=== PATIENT | female | born 1935 | race Caucasian/White ===

== ENCOUNTER 2017-07-10 19:00 | Emergency (ER) | payer MEDICARE, SELFPAY ==
[2017-07-10 19:02] VITALS: BP 170/120; PULSE 89; RESP 18; TEMP 36.7; O2SAT 96; BMI 22.2
--- NOTE | 2017-07-10 20:45 | CT_ITS ---
STUDY: CT FACIAL BONES WITHOUT CONTRAST REASON FOR EXAM: Female, 81 years old. Trauma RADIATION DOSAGE (If Supplied By Facility): CTDIvol = ( 29.38 ) mGy, DLP = ( 510.73 ) mGycm TECHNIQUE: The patient was scanned in a multi detector CT scanner. Sagittal and coronal images were reconstructed. Individualized dose optimization techniques were used for this CT. COMPARISON: None. FINDINGS: Left periorbital soft tissue swelling.. Normal orbital russell and orbital contents. Normal nasal bones and anterior nasal spine. Normal facial bones. There is no demonstrated fracture. Mucous retention cyst or polyp within the left maxillary sinus and right posterior ethmoid air cells. CT/Sinus/Facial Bone IMPRESSION: Left periorbital soft tissue swelling without evidence for acute facial bone fracture. Electronically Signed: Philippe Rosa MD at 21:26 EST , Service support ,
--- NOTE | 2017-07-10 20:45 | CT_ITS ---
STUDY: CT BRAIN WITHOUT CONTRAST REASON FOR EXAM: Female, 81 years old. Left eye bruising RADIATION DOSAGE (If Supplied By Facility): CTDIvol = ( 44.99 ) mGy, DLP = ( 745.49 ) mGycm TECHNIQUE: Transaxial CT imaging of the brain was performed without administration of intravenous contrast material. Individualized dose optimization techniques were used for this CT. COMPARISON: None. FINDINGS: Normal soft tissue structures. Normal calvarium. Calcification of cavernous carotids. Moderate atrophy and periventricular white matter ischemic changes.. Normal basal ganglia and thalami. Normal brainstem. Normal cerebellum. There is no intracranial hemorrhage. There are no findings of an acute ischemic infarction. Left periorbital soft tissue swelling without evidence for acute fracture. Postsurgical changes of the orbits. Mucosal thickening within the right posterior ethmoid air cells. CT/Brain/Head without Contrast IMPRESSION: Moderate atrophy and periventricular white matter ischemic change. No evidence for acute intracranial bleed. Electronically Signed: Philippe Rosa MD at 21:24 EST , Service support ,
--- NOTE | 2017-07-10 21:48 | ED.VISSUMM ---
- ER Visit Summary Date of Service: 07/10/17 Chief Complaint: Fall with facial injury History of Present Illness: The patient is a 81 F who had a mechanical fall at home today. She states she caught her foot on the leg of a chair and fell forward. She struck her face. She was wearing glasses at the time they did not break. She denies loss of consciousness. She denies neck pain. She is not currently on anticoagulants. Physical Examination: Signs are remarkable for blood pressure 170/120, otherwise unremarkable. Head neck examination is significant for left periorbital edema and ecchymosis. Pupil itself is equal and reactive. Extraocular movements are intact. No intraoral injury is noted. C-spine is nontender. Heart is regular rate and rhythm. Lung sounds are clear. Abdomen is soft nontender. Neuro exam is normal. Test Results: CT scan of the head shows moderate atrophy and periventricular white matter ischemic change. No evidence of acute bleed. CT the facial bones reveals left periorbital soft tissue swelling without evidence of acute fracture. Emergency Department Course and Treatment: She declined anything for pain while here. Test results were discussed with her. She is comfortable taking Tylenol at home for pain. Treatment Plan: [] Disposition: Discharge Impression: 1. Mechanical fall 2. Facial contusion This note was generated with [employer] dictation software. It may contain incorrect words, spelling, and punctuation that were not noted in review of the chart prior to signing ED Disposition - Plan for ED Patient: Disposition: Home or Assisted Living Chief Complaint: Fall Instructions: ED Contusion Face, ED Mechanical Fall Referrals: Aguila Beebe DO [Primary Care Provider] - 1-2 Weeks
[2017-07-10 21:55] VITALS: BP 167/99
== END 2017-07-10 21:56 | disposition home or self-care (01) ==
PROVIDERS: Emergency Provider Emergency Medicine; Family Provider Student in an Organized Health Care Education/Training Program; PCP Student in an Organized Health Care Education/Training Program
DX: S00.12XA Contusion of left eyelid and periocular area, initial encounter (principal); W18.09XA Striking against other object with subsequent fall, initial encounter; Y93.9 Activity, unspecified; Y92.009 Unspecified place in unspecified non-institutional (private) residence as the place of occurrence of the external cause; I10 Essential (primary) hypertension; E78.00 Pure hypercholesterolemia, unspecified; E87.6 Hypokalemia; K21.9 Gastro-esophageal reflux disease without esophagitis; Z79.899 Other long term (current) drug therapy
CPT/HCPCS: 70450; 70486; 99282

== ENCOUNTER 2017-11-16 15:06 | Inpatient (IN) | payer MEDICARE, OTHER, SELFPAY ==
[2017-11-16] VITALS (8 sets, daily range): BP systolic 145–181; BP diastolic 82–100; PULSE 68–88; RESP 16–19; TEMP 36.5–36.8; O2SAT 95–99; BMI 22.1; BMI 21.6
--- NOTE | 2017-11-16 15:20 | CT_ITS ---
STUDY: CT BRAIN WITHOUT CONTRAST REASON FOR EXAM: Female, 81 years old. Dizziness RADIATION DOSAGE (If Supplied By Facility): CTDIvol = ( 44.99 ) mGy, DLP = ( 829.85 ) mGycm TECHNIQUE: Transaxial CT imaging of the brain was performed without administration of intravenous contrast material. Individualized dose optimization techniques were used for this CT. COMPARISON: 07/10/2017 FINDINGS: There is no acute bleed or infarct. There are stable chronic ischemic and atrophic changes. The ventricles are normal in configuration. There is no hydrocephalus. The visualized paranasal sinuses are clear. The mastoid air cells are well aerated. There is no skull fracture. CT/Brain/Head without Contrast IMPRESSION: Stable chronic ischemic and atrophic changes. No acute intracranial abnormality. Electronically Signed: Casimiro Tavares, at 16:05 EDT Tel , Service support ,
--- NOTE | 2017-11-16 15:20 | EKG12_ITS ---
Test Reason : DYSRHYTHMIA Blood Pressure : / mmHG Vent. Rate : 080 BPM Atrial Rate : 080 BPM P-R Int : 258 ms QRS Dur : 086 ms QT Int : 390 ms P-R-T Axes : 064 -30 026 degrees QTc Int : 449 ms Sinus rhythm with 1st degree A-V block Left axis deviation Abnormal ECG Confirmed by URSULA SLOAN, ELIANA ([id number]), rewrite editor ERNESTO ESPINOZA ([id number]) on 11/20/2017 3:01:19 PM Referred By: MARLYN Confirmed By:ELIANA VERGARA MD
--- NOTE | 2017-11-16 15:21 | ED.VISSUMM ---
- ER Visit Summary Date of Service: 11/16/17 Chief Complaint: Dizziness History of Present Illness: The patient is a 81 F presenting with dizziness, nausea, vomiting. Patient states this started last night. She started to feel nauseated. She had lightheadedness. She states this worsened today and she was seen by the HEAD MILLER at her at her primary care physician's office. When she returned home from her office visit she states the dizziness worsened. She states it is a lightheadedness. She denies vertigo. She had a near syncopal episode. She denies chest pain or shortness of breath. She states she had to crawl into the house because she was too dizzy to stand. She has had vomiting with no blood in her emesis. Denies fever. Denies other complaints. Physical Examination: Vitals are stable. Patient is afebrile. Alert no acute distress. HEENT exam is unremarkable. Neck is supple. Lungs are clear and equal bilaterally. Heart is regular rate and rhythm. Abdomen is soft nontender nondistended. Extremities are unremarkable. Skin is warm and dry. No focal neurologic deficit. NIH 0 Remainder of exam is unremarkable. Emergency Department Course and Treatment: Patient is given IV fluids, Zofran. EKG is sinus rate of 80 with no acute ischemic changes. Chest x-ray shows no acute process. CT head shows chronic changes. CBC, chemistries unremarkable other than potassium 3.3, glucose 138. Troponin is negative. Attempted to ambulate the patient and she is very unsteady. Family is concerned because she had several episodes of near syncope today. She lives alone and they are concerned about her going home. Will discuss with the hospitalist for admission. Disposition: Admission Impression: Near syncope This note was generated with [employer] dictation software. It may contain incorrect words, spelling, and punctuation that were not noted in review of the chart prior to signing ED Disposition - Plan for ED Patient: Chief Complaint: Nausea/Vomiting/Diarrhea Referrals: Aguila Beebe DO [Primary Care Provider] -
--- NOTE | 2017-11-16 15:24 | ED.DCSUM_ITS ---
- ER Visit Summary Date of Service: 11/16/17 Chief Complaint: Dizziness History of Present Illness: The patient is a 81 F presenting with dizziness, nausea, vomiting. Patient states this started last night. She started to feel nauseated. She had lightheadedness. She states this worsened today and she was seen by the COFFEE HOST at her at her primary care physician's office. When she returned home from her office visit she states the dizziness worsened. She states it is a lightheadedness. She denies vertigo. She had a near syncopal episode. She denies chest pain or shortness of breath. She states she had to crawl into the house because she was too dizzy to stand. She has had vomiting with no blood in her emesis. Denies fever. Denies other complaints. Physical Examination: Vitals are stable. Patient is afebrile. Alert no acute distress. HEENT exam is unremarkable. Neck is supple. Lungs are clear and equal bilaterally. Heart is regular rate and rhythm. Abdomen is soft nontender nondistended. Extremities are unremarkable. Skin is warm and dry. No focal neurologic deficit. NIH 0 Remainder of exam is unremarkable. Emergency Department Course and Treatment: Patient is given IV fluids, Zofran. EKG is sinus rate of 80 with no acute ischemic changes. Chest x-ray shows no acute process. CT head shows chronic changes. CBC, chemistries unremarkable other than potassium 3.3, glucose 138. Troponin is negative. Attempted to ambulate the patient and she is very unsteady. Family is concerned because she had several episodes of near syncope today. She lives alone and they are concerned about her going home. Will discuss with the hospitalist for admission. Disposition: Admission Impression: Near syncope This note was generated with [employer] dictation software. It may contain incorrect words, spelling, and punctuation that were not noted in review of the chart prior to signing ED Disposition - Plan for ED Patient: Chief Complaint: Nausea/Vomiting/Diarrhea Referrals: Aguila Beebe DO [Primary Care Provider] -
--- NOTE | 2017-11-16 15:30 | RAD_ITS ---
STUDY: X-RAY CHEST REASON FOR EXAM: Female, 81 years old. Shortness of breath. Nausea and vomiting. TECHNIQUE: Single AP portable view of the chest. COMPARISON: None. FINDINGS: EKG electrodes are seen. The lungs are clear and expanded. There is no demonstrated pleural abnormality. Normal size heart. Normal mediastinum and morelia. Normal visualized pulmonary arteries. There is atherosclerotic tortuosity of the aortic arch and descending thoracic aorta. Normal visualized thoracic spine. Normal visualized ribs, clavicles, and shoulders. Hiatal hernia. RAD/Chest 1 View (Portable) IMPRESSION: No acute abnormality is seen. Electronically Signed: Carl Wynn MD at 15:44 EDT Tel [phone], Service support ,
[2017-11-16] MEDS: Ondansetron 4 MG/2 ML Vial IV (15:34)
[2017-11-16 15:35] LABS: Absolute Lymphocyte Count 1.38 X10^3/ul (0.83-4.51); Basophil# 0.03 X10^3/uL; Basophil% 0.5 % (0-1); Eosinophil# 0.15 X10^3/uL; Eosinophils% 2.5 % (0-5); Hematocrit 43.2 % (37-47); Hemoglobin 15.1 g/dl (12.0-15.0); Lymphocyte # 1.38 X10^3/ul (4.0); Mean Corpuscular Hgb 30.7 pg (27.0-32.0); Mean Corpuscular Volume 87.8 fL (81-99); Mean Platelet Vol. 11.2 fl (6.2-12.0); Monocyte# 0.38 X10^3/uL; Monocyte% 6.3 % (0-10); Neutrophil # 4.04 X10^3/uL (2.7-7.7); Neutrophil % 67.4 % (47-70); POSITIVE COUNT NO; POSITIVE DIFFERENTIAL NO; POSITIVE MORPHOLOGY NO; Platelet Count 267 K/mm3 (150-450); RBC Distribution Width CV 13.2 % (11.6-14.6); RBC Distribution Width SD 42.3 fl (35.1-43.9); Red Blood Count 4.92 M/mm3 (4.2-5.4)
[2017-11-16 15:49] LABS: Anion Gap 9 (5-15); BUN 13 mg/dL (7-18); BUN/Creat Ratio 15.3 RATIO (10-20); Calcium,Total 9.2 mg/dL (8.5-10.1); Chloride 99 mmol/L (98-107); Creatinine, Serum 0.85 mg/dL (0.55-1.02); EST Glomerular Filtration Rate 68 mL/min (>60); Est Glom Filt Rate - Afr Amer 82 mL/min (>60); Estimated Creatinine Clearance 45.92 ml/min; Glucose 138 mg/dL (74-106); Potassium 3.3 mmol/L (3.5-5.1); Sodium Level 134 mmol/L (136-145)
[2017-11-16 16:14] LABS: Bacteria 0 SEEN /hpf (None Seen); Mucous, Urine 0 SEEN /hpf (<or=2+)
[2017-11-16 16:46] LABS: Color, Urine Yellow (Yellow); Glucose, Dipstick Normal (Normal); Ketone-Dipstick Negative (Negative); Leukocyte Esterase-Dipstick Negative /ul (Negative); Nitrite-Dipstick Negative (Negative); Occult Blood-Urine 10 /ul (Negative); Protein-Dipstick Negative (Negative); Specific Gravity, Urine 1.015 (1.002-1.030); Urine Bilirubin Dipstick Negative (Negative); Urine Clarity Clear (Clear); Urine Urobilinogen Normal (Normal)
[2017-11-16 16:52] LABS: Red Blood Cells-Urine 0-5 SEEN /hpf (0-5); Squamous Epithelial Cells - UA 0-5 SEEN /hpf (5-10); White Blood Cells 0-5 SEEN /hpf (0-5)
--- NOTE | 2017-11-16 17:29 | ECHOD_ITS ---
Reason For Study: Arrhythmia Procedure This was a 2D Doppler, Color Flow transthoracic echocardiogram. Exam performed portable in patient room. Left Ventricle Normal LV size. Left ventricular systolic function is normal. The estimated ejection fraction is 60 %. Transmitral diastolic flow velocities suggest mild (stage 1) diastolic dysfunction (reversed pattern). No regional wall motion abnormalities noted. Right Ventricle Normal RV size. Normal systolic function. Atria Normal left atrium. Normal right atrium. Mitral Valve Mild diffuse mitral valve thickening. Mild (1+) eccentric mitral valve insufficiency. Tricuspid Valve Normal tricuspid valve. Mild to moderate (1-2+) tricuspid valve insufficiency. Pulmonary artery systolic pressure is 45 mmHg. Aortic Valve Trisinus/trileaflet aortic valve. Mild focal aortic valve calcification. Peak aortic valve gradient 21 mmHg. Mean aortic valve gradient 12 mmHg. Mild aortic stenosis. Pulmonic Valve Normal pulmonic valve. Great Vessels Calcified aortic root. The pulmonary artery is normal size. Normal inferior vena cava. Pericardium/Pleural No pericardial effusion. Medication Performed a rapid injection of agitated mix of 9 cc saline and 1cc air to assess for atrial septal defect. MMode/2D Measurements & Calculations LVIDd: 3.7 cm IVSd: 0.85 cm LVOT diam: 2.1 cm LVIDs: 2.5 cm LVPWd: 0.85 cm LVOT area: 3.4 cm2 RVDd: 3.9 cm FS: 31.3 % Ao root diam: 2.9 cm LAV(MOD-bp): 49.6 ml EDV(MOD-sp4): 48.8 ml LAV(MOD-bp) Indexed: 30.6 ml/m2 ESV(MOD-sp4): 13.3 ml LAV(MOD-sp2): 47.5 ml EF(MOD-sp4): 72.6 % LAV(MOD-sp4): 49.6 ml SV(MOD-sp4): 35.4 ml LA A4 area: 18.9 cm2 RA A4 area: 16.9 cm2 Doppler Measurements & Calculations MV E max [place]: 85.0 cm/sec Lat Peak E' [place]: 7.5 cm/sec Med Peak E' [place]: 4.6 cm/sec MV A max [place]: 117.8 cm/sec E/E' lat: 11.4 E/E' med: 18.6 MV E/A: 0.72 Ao V2 max: 232.1 cm/sec LV V1 max: 97.3 cm/sec SV(LVOT): 75.1 ml Ao max P.5 mmHg LV V1 max P.8 mmHg Ao V2 mean: 163.9 cm/sec LV V1 mean P.1 mmHg Ao mean P.8 mmHg LV V1 mean: 69.9 cm/sec Ao V2 VTI: 52.9 cm LV V1 VTI: 22.2 cm DYLAN(I,D): 1.4 cm2 DYLAN(V,D): 1.4 cm2 PA V2 max: 88.4 cm/sec TR max [place]: 313.5 cm/sec TR max P.3 mmHg Interpretation Summary Normal LV size. Left ventricular systolic function is normal. The estimated ejection fraction is 60 %. Transmitral diastolic flow velocities suggest mild (stage 1) diastolic dysfunction (reversed pattern). Mild focal aortic valve calcification. Mild aortic stenosis. Ordering Physician: Luis Felipe Miller Performed By: Sylvia Ortiz RDCS, RVT
--- NOTE | 2017-11-16 17:58 | NURSING ---
[employer] operations engineer in charge notified ok to transfer patient to PCU.
--- NOTE | 2017-11-16 18:56 | PCM.HP.STD ---
Problem List (1) Hypokalemia Status: Resolved (2) HTN (hypertension) Status: Chronic (3) Dyslipidemia Status: Chronic History of Present Illness Date of Admission: 11/16/17 Chief Complaint: Dizziness The patient is a 81 year old F past medical history of essential hypertension and dyslipidemia resented to the emergency room due to intractable dizziness associated with nausea and vomiting that started last night. She was seen by a nurse practitioner and her primary care doctor's office who asked for urine sample for urinalysis. At home and his symptoms got worse and she decided to come to the emergency room for further evaluation. He denies any associated headache, chest pain, palpitations or abdominal pain. CT scan of the brain was nonacute. We are placing her in the hospital for further evaluation. Past Medical History Past Medical History (Chronic Problems): Chronic Problems HTN (hypertension) (Chronic) Dyslipidemia (Chronic) Allergies aspirin Allergy (Verified 11/16/17 15:13) Hives tetanus immune globulin Allergy (Verified 11/16/17 15:13) Rash Home Medications: Ambulatory Orders Medication Instructions Recorded Hydrochlorothiazide [Hctz] 25 mg PO DAILY 05/13/14 Metoprolol Tartrate [Lopressor 50 mg PO BID 05/13/14 (beta meghana)] Pravastatin [Pravachol] 20 mg PO QHS 05/13/14 Potassium Chloride [K-Dur] 20 meq PO BID 07/10/17 Calcium Carbonate/Vitamin D3 1 each PO BID 11/16/17 [Caltrate 600 Plus D3 Tablet] Gluc Fritz/Chondro Fritz A/Vit C/Mn 2 each PO DAILY 11/16/17 [Glucosamine-Chondroitin Cap] Ibuprofen 200 mg PO 4X/DAY PRN PRN 11/16/17 Multivitamin [Multiple Vitamins] 1 each PO DAILY 11/16/17 Omeprazole Magnesium [Prilosec Otc] 20 mg PO DAILY 11/16/17 Surgical History: - - Breast biopsy otherwise unremarkable Smoking Status: Never smoker - *Family History Sibling History Items: - - Gallstones Maternal History Items: No pertinent history Paternal History Items: No pertinent history Review of Systems Comment: All Systems were reviewed with pertinent positives mentioned in the HPI above. VTE Information - Inpt Only VTE Present on Admission: No VTE Mechan Device Prophylaxis: SCD's VTE Pharm Prophylaxis ordered?: No - Physical Exam General: Alert, Oriented x3 HEENT: Atraumatic Oral: Moist Mucosa Neck: Supple, No JVD Lungs: Clear to auscultation Cardiovascular: Regular rate, Regular Rhythm, Normal S1, Normal S2 Abdomen: Bowel Sounds Present, Soft, Non Tender, Non-Distended Vital Signs Temp Pulse Resp BP Pulse Ox 98.2 F 83 16 160/88 H 97 11/16/17 18:14 11/16/17 18:14 11/16/17 18:14 11/16/17 18:14 11/16/17 18:14 Oxygen Delivery Method Room Air Weight: 58.8 kg Body Mass Index (BMI) 21.6 Assessment/Plan All Active Problems Hypokalemia (Resolved) Biliary colic (Acute) Biliary calculus (Acute) 1. Intractable dizziness/ ataxic gait; symptoms are concerning for posterior circulation CVA, we will obtain MRI of the brain and go from there. 2. Essential hypertension; this is controlled. 3. Hypokalemia; will replace with oral potassium chloride. 4. Dyslipidemia; will continue her statin. 5. GERD; she is on a PPI Code Visit OBSV E&M: [id number] Initial observation care L2
[2017-11-16] MEDS: 0.9% Normal Saline 1,000 ML 60 ML IV (19:48)
[2017-11-16 20:05] LABS: Anion Gap 9 (5-15); BUN 11 mg/dL (7-18); BUN/Creat Ratio 17.4 RATIO (10-20); Calcium,Total 8.8 mg/dL (8.5-10.1); Chloride 101 mmol/L (98-107); Creatinine, Serum 0.63 mg/dL (0.55-1.02); EST Glomerular Filtration Rate 95 mL/min (>60); Est Glom Filt Rate - Afr Amer 115 mL/min (>60); Estimated Creatinine Clearance 37.45 ml/min; Glucose 107 mg/dL (74-106); Sodium Level 135 mmol/L (136-145)
[2017-11-16 20:17] LABS: Thyroid Stim Hormone (TSH) 2.71 uIU/mL (0.358-3.74)
[2017-11-16] MEDS: Calcium Carb/Vitamin D 1 TABLET Tablet PO (22:21)
[2017-11-16] MEDS: Pravastatin 20 MG Tablet PO (22:21)
[2017-11-16] MEDS: Metoprolol Tartrate 50 MG Tablet PO (22:22)
[2017-11-17] VITALS (14 sets, daily range): BP systolic 133–156; BP diastolic 70–90; PULSE 60–79; RESP 16–18; TEMP 36.4–36.9; O2SAT 94–98; BMI 21.6
[2017-11-17 05:52] LABS: Absolute Lymphocyte Count 1.57 X10^3/ul (0.83-4.51); Absolute Neutrophil Count 3.8 X10^3/uL (2.0-7.7); Basophil# 0.03 X10^3/uL; Basophil% 0.5 % (0-1); Eosinophil# 0.24 X10^3/uL; Eosinophils% 3.8 % (0-5); Hematocrit 42.2 % (37-47); Hemoglobin 14.3 g/dl (12.0-15.0); Lymphocyte # 1.57 X10^3/ul (4.0); Lymphocyte % 24.9 % (19-41); Mean Corp Hgb Conc 33.9 g/gl (32-36); Mean Corpuscular Hgb 30.2 pg (27.0-32.0); Mean Platelet Vol. 11.3 fl (6.2-12.0); Monocyte# 0.63 X10^3/uL; Neutrophil # 3.81 X10^3/uL (2.7-7.7); Neutrophil % 60.5 % (47-70); POSITIVE COUNT NO; POSITIVE DIFFERENTIAL NO; POSITIVE MORPHOLOGY NO; Platelet Count 262 K/mm3 (150-450); RBC Distribution Width CV 13.4 % (11.6-14.6); RBC Distribution Width SD 43.5 fl (35.1-43.9); Red Blood Count 4.74 M/mm3 (4.2-5.4); White Blood Count 6.3 K/mm3 (4.4-11.0)
[2017-11-17 06:22] LABS: ALB/GLOB Ratio 0.9 RATIO (0.9-2.4); AST(SGOT) 20 U/L (15-37); Alanine Aminotransfer ALT/SGPT 22 U/L (13-56); Albumin, Serum 3.3 g/dL (3.2-5.0); Alkaline Phosphatase 56 U/L (45-117); Anion Gap 7 (5-15); BUN 8 mg/dL (7-18); BUN/Creat Ratio 12.4 RATIO (10-20); Calcium,Total 8.4 mg/dL (8.5-10.1); Chloride 105 mmol/L (98-107); Creatinine, Serum 0.64 mg/dL (0.55-1.02); EST Glomerular Filtration Rate 94 mL/min (>60); Est Glom Filt Rate - Afr Amer 113 mL/min (>60); Estimated Creatinine Clearance 37.45 ml/min; Globulin 3.7 g/dL (2.2-4.2); Glucose 99 mg/dL (74-106); Sodium Level 138 mmol/L (136-145)
--- NOTE | 2017-11-17 06:30 | MRI_ITS ---
STUDY: MRI BRAIN WITHOUT CONTRAST REASON FOR EXAM: Female, 81 years old. dizziness since yesterday. TECHNIQUE: Standardized multiplanar fat and water weighted pulse sequences were obtained. COMPARISON: CT of the head dated 11/16/2017 FINDINGS: There is mild cerebral atrophy with widening of the extra-axial spaces and ventricular dilatation. There are multiple white matter hyperintensities, distributed throughout the deep white matter tracts of the cerebral hemispheres, consistent with moderate chronic white matter ischemic changes. There is a 7 mm restricted diffusion at the left cerebellum (axial image #5 series 4) with drop of signal on ADC map, consistent with acute infarction. Additionally there appears to be 1-2 mm increased diffusion signal within the right cerebellum as well. Normal bilateral basal ganglia. Normal thalami. There is no extra-axial fluid accumulation. Normal flow voids within the major intracranial circulation suggesting patency by spin echo criteria. Normal sella turcica, pituitary gland, infundibular stalk, optic chiasm and hypothalamus. Normal tectal plate and pineal gland. 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 Consider embolic etiologies. N.B. : The above information has been verbally conveyed by Francois Colbert MD to [facility]- In-Patient RN, on 11/17/2017 12:36:02 (ET). Electronically Signed: Francois Colbert MD at 10:51 EDT Tel , Service support , N.B. : The above information has been verbally conveyed by Francois Colbert MD to [facility]- In-Patient RN, on 11/17/2017 12:36:02 (ET).
[2017-11-17] MEDS: Calcium Carb/Vitamin D 1 TABLET Tablet PO ×2 (09:15→21:37)
[2017-11-17] MEDS: Pantoprazole Sodium 20 MG Tablet PO (09:15)
[2017-11-17] MEDS: Metoprolol Tartrate 50 MG Tablet PO ×2 (09:15→21:37)
[2017-11-17] MEDS: Enoxaparin 40 MG/0.4 ML Syringe SC (09:16)
--- NOTE | 2017-11-17 11:32 | PCM.PN.HOSP ---
Subjective: Patient was seen and examined. Admitted last night with dizziness. Complains of dizziness feeling much better. MRI of the brain is positive for acute very small infarctions of the cerebellum. Vitals/I&O's: Vital Signs Temp Pulse Resp BP Pulse Ox 98.4 F 61 16 144/80 H 98 11/17/17 09:05 11/17/17 11:17 11/17/17 09:05 11/17/17 09:05 11/17/17 09:05 Oxygen Delivery Method Room Air Weight: 58.8 kg Body Mass Index (BMI) 21.6 Orthostatic Vital Signs Start: 11/17/17 05:06 Freq: q24h Status: Active Protocol: Activity Type Activity Date Activity User E-Sign Co-Sign Detail Recorded Client Recorded Date Recorded By Document 11/17/17 05:06 [facility] [id number] 11/17/17 05:07 [facility] 11/17/17 05:06 Orthostatic Vitals Standing -Blood Pressure (90/60-120/80) 152/88 H -Extremity Use Right Arm -Pulse Rate (60-100) 77 Sitting -Blood Pressure (90/60-120/80) 149/90 H -Extremity Use Right Arm -Pulse Rate (60-100) 68 Lying -Blood Pressure (90/60-120/80) 156/83 H -Extremity Use Right Arm -Pulse Rate (60-100) 67 Intake and Output for Last 24 Hours 11/15/17 11/16/17 11/17/17 23:59 23:59 23:59 Intake Total 365 / 365 509 / 509 Output Total 750 / 750 Balance 365 / 365 -241 / -241 General: Alert, Oriented x3, Cooperative, No apparent distress HEENT: Atraumatic, PERRLA, EOMI, Normocephalic Oral: Moist Mucosa Neck: Supple Lungs: Clear to auscultation, Normal air movement Cardiovascular: Regular rate, Regular Rhythm, Normal S1, Normal S2, No murmurs Abdomen: Bowel Sounds Present, Soft, Non Tender, Non-Distended, No Hepato-splenomegaly Extremities: No edema Skin: No rashes, No breakdown Musculoskeletal: No Tenderness to Palpation of Joints or Extremities Lymphatic: No Cervical, Supraclavicular, or Inguinal Adenopathy Neurological: Cranial nerves II-XII grossly intact, Neuro grossly intact Psych/Mental Status: Normal Affect, Appropriate Laboratory Results 11/16/17 19:14: TSH 2.71 11/16/17 19:14: Troponin I < 0.015 11/16/17 19:14: Sodium 135 L, Potassium 3.0 L, Chloride 101, Carbon Dioxide 25.0, Anion Gap 9, BUN 11, Creatinine 0.63, Estim Creat Clear Calc 37.45, Est GFR (MDRD) Af Amer 115, Est GFR (MDRD) Non-Af 95, BUN/Creatinine Ratio 17.4, Glucose 107 H, Calcium 8.8 11/16/17 22:48: Troponin I < 0.015 11/17/17 05:20: WBC 6.3, RBC 4.74, Hgb 14.3, Hct 42.2, MCV 89.0, MCH 30.2, MCHC 33.9, RDW 13.4, RDW Differential 43.5, Plt Count 262, MPV 11.3, Immature Gran % (Auto) 0.300, Neut % (Auto) 60.5, Lymph % (Auto) 24.9, [place] % (Auto) 10.0, Eos % (Auto) 3.8, Baso % (Auto) 0.5, Absolute Neuts (auto) 3.8, Absolute Lymphs (auto) 1.57, Total Counted Not Reportable 11/17/17 05:20: Sodium 138, Potassium 4.0, Chloride 105, Carbon Dioxide 26.0, Anion Gap 7, BUN 8, Creatinine 0.64, Estim Creat Clear Calc 37.45, Est GFR (MDRD) Af Amer 113, Est GFR (MDRD) Non-Af 94, BUN/Creatinine Ratio 12.4, Glucose 99, Calcium 8.4 L, Total Bilirubin 0.60, AST 20, ALT 22, Alkaline Phosphatase 56, Total Protein 7.0, Albumin 3.3, Globulin 3.7, Albumin/Globulin Ratio 0.9 Current Medications Aspirin (Aspirin, Baby) 81 mg PO DAILY@0800 [facility] Atorvastatin Calcium (Lipitor) 80 mg PO QHS [facility] Calcium/Vitamin D (Os-Wallace 500mg + D) 1 tablet PO BID [facility] Last Admin: 11/17/17 09:15 Dose: 1 tablet Enoxaparin Sodium (Lovenox) 40 mg SC DAILY@1000 [facility] Last Admin: 11/17/17 09:16 Dose: 40 mg Sodium Chloride () 1,000 mls @ 60 mls/hr IV .[id number] [facility] Last Admin: 11/16/17 19:48 Dose: 60 mls/hr Magnesium Hydroxide (Milk Of Magnesia) 30 ml PO DAILY PRN PRN Reason: Constipation Metoprolol Tartrate (Lopressor (Beta Juan Carlos)) 50 mg PO BID [facility] Last Admin: 11/17/17 09:15 Dose: 50 mg Multivitamins/Minerals (Ocuvite) 1 tablet PO DAILY [facility] Last Admin: 11/17/17 09:15 Dose: 1 tablet Pantoprazole Sodium (Protonix) 20 mg PO DAILY [facility] Last Admin: 11/17/17 09:15 Dose: 20 mg Potassium Chloride (K-Dur) 20 meq PO BID [facility] Last Admin: 11/17/17 09:15 Dose: 20 meq Sodium Chloride () 5 - 30 ml IV UD PRN PRN Reason: SALINE FLUSH Medical Necessity - Tobacco Use Smoking Status: Never smoker Assessment/Plan All Active Problems Hypokalemia (Resolved) Biliary colic (Acute) Biliary calculus (Acute) 81-year-old female past medical history of hypertension, hyperlipidemia comes in with complaints of severe dizziness with nausea and vomiting. 1. Intractable dizziness/ataxic gait due to acute cerebellar stroke, seen on MRI of the brain, neurology consulted, patient is allergic to aspirin, started on statins and Plavix, will follow up on 2D echo, MRA head and neck, PT and OT consulted to evaluate and treat. Patient opacity suggests eval 2. Essential hypertension, blood pressure is controlled 3. Hypokalemia, resolved, 4. Dyslipidemia, total cholesterol is 159, LDL is 84, HDL is 60 5. GERD, on a PPI Code Visit Inpatient E&M: 92667 Subs Hosp L3
[2017-11-17 12:49] LABS: Cholesterol 159 mg/dL (200); High Density Lipoprotein 60 mg/dL; Triglycerides 77 mg/dL; Very Low Density Lipoprotein 15 mg/dL (5-40)
[2017-11-17] MEDS: Clopidogrel Bisulfate 75 MG Tablet PO (12:51)
[2017-11-17] MEDS: 0.9% Normal Saline 1,000 ML 60 ML IV (14:53)
--- NOTE | 2017-11-17 17:24 | MRI_ITS ---
STUDY: MRA OF THE HEAD WITHOUT CONTRAST REASON FOR EXAM: Female, 81 years old. CVA and dizziness TECHNIQUE: 3-D ctbi-zz-efzbut (TOF) imaging was performed with MIPs. The study was performed unenhanced. COMPARISON: MR brain from today FINDINGS: Normal bilateral petrous carotid arteries. Normal right cavernous carotid artery with a normal supraclinoid bifurcation. Normal left cavernous carotid artery with a normal supraclinoid bifurcation. Normal right A1 segments of the anterior cerebral artery. Normal left A1 segments of the anterior cerebral artery. There is non-visualization of the anterior communicating artery (ACOM). Normal bilateral A2 segments of the anterior cerebral arteries. Normal right M1 and M2 segments of the middle cerebral arteries, with a normal M1 bifurcation. Normal left M1 and M2 segments of the middle cerebral arteries, with a normal M1 bifurcation. There is non-visualization of the right posterior communicating artery (PCOM). There is non-visualization of the left posterior communicating artery (PCOM). Normal bilateral vertebral arteries. Normal basilar artery with a normal basilar bifurcation. The visualized bilateral superior cerebellar (SCA) arteries are normal. Normal bilateral P1, P2 and visualized P3 segments of the posterior cerebral arteries. There is no demonstrated aneurysm of the [place]. There is no major vessel occlusion or hemodynamically significant stenosis. There is no demonstrated abnormality of the visualized brain. MRI/MRA Head ONLY without Contrast IMPRESSION: Normal MRA of the head Electronically Signed: Dennis Linton MD at 22:52 EDT , Service support ,
--- NOTE | 2017-11-17 17:24 | MRI_ITS ---
STUDY: MRA NECK WITH AND WITHOUT CONTRAST REASON FOR EXAM: Female, 81 years old. CVA TECHNIQUE: 3-D cjmj-zu-dijztb (TOF) imaging was performed in an 1.5 T MRI scanner. 6 ml of Gadavist was administered for the contrast enhanced images. COMPARISON: None. FINDINGS: RIGHT CAROTID ARTERIES: Normal right common carotid artery (CCA). Mild plaquing of the right common carotid bulb. Normal origin of the right internal carotid (ICA) artery without a hemodynamically significant stenosis. Normal visualized cervical portion of the right internal carotid artery. Normal origin of the right external carotid artery (ECA). LEFT CAROTID ARTERIES: Normal left common carotid artery (CCA). Mild plaquing of the left common carotid bulb. Normal origin of the left internal carotid (ICA) artery without a hemodynamically significant stenosis. Normal visualized cervical portion of the left internal carotid artery. Normal origin of the left external carotid artery (ECA). VERTEBRAL ARTERIES: Normal antegrade flow within the bilateral vertebral artery. There is diffuse segmental narrowing of the distal right vertebral. MRI/MRA Neck WITH and W/O Contrast IMPRESSION: Atherosclerotic disease without evidence for hemodynamically significant stenosis of the carotids utilizing NASCET criteria.. Electronically Signed: Philippe Rosa MD at 21:21 EDT , Service support ,
[2017-11-17] MEDS: Atorvastatin Calcium 80 MG Tablet PO (21:37)
[2017-11-18] VITALS (14 sets, daily range): BP systolic 134–163; BP diastolic 74–90; PULSE 59–75; RESP 14–18; TEMP 36.5–37.1; O2SAT 94–97; BMI 21.6
[2017-11-18] MEDS: Enoxaparin 40 MG/0.4 ML Syringe SC (08:07)
[2017-11-18] MEDS: Metoprolol Tartrate 50 MG Tablet PO ×2 (08:07→21:56)
[2017-11-18] MEDS: Calcium Carb/Vitamin D 1 TABLET Tablet PO ×2 (08:08→21:53)
[2017-11-18] MEDS: Pantoprazole Sodium 20 MG Tablet PO (08:08)
[2017-11-18] MEDS: Clopidogrel Bisulfate 75 MG Tablet PO (08:08)
--- NOTE | 2017-11-18 08:33 | PN_ITS ---
Patient Problems: Active and Suspected Problems Stroke (Acute) Subjective: Patient was seen and examined. Being seen concurrently by occupational therapist. Complains of slight dizziness still persistent. Feels that her head is heavy. Denies any chest pain no palpitations or leg swelling. No acute events overnight Objective: Physical exam: General: Alert, Oriented x3, Cooperative, No apparent distress HEENT: Atraumatic, PERRLA, EOMI, Normocephalic Oral: Moist Mucosa Neck: Supple Lungs: Clear to auscultation, Normal air movement Cardiovascular: Regular rate, Regular Rhythm, Normal S1, Normal S2, No murmurs Abdomen: Bowel Sounds Present, Soft, Non Tender, Non-Distended, No Hepato- splenomegaly Extremities: No edema Skin: No rashes, No breakdown Musculoskeletal: No Tenderness to Palpation of Joints or Extremities Lymphatic: No Cervical, Supraclavicular, or Inguinal Adenopathy Neurological: Cranial nerves II-XII grossly intact, Neuro grossly intact Psych/Mental Status: Normal Affect, Appropriate Vitals/I&O's: Vital Signs Temp Pulse Resp BP Pulse Ox 97.9 F 62 15 146/75 H 94 11/18/17 07:52 11/18/17 08:07 11/18/17 07:52 11/18/17 08:07 11/18/17 07:52 Oxygen Delivery Method Room Air Body Mass Index (BMI) 21.6 Intake and Output for Last 24 Hours 11/16/17 11/17/17 11/18/17 23:59 23:59 23:59 Intake Total 515 / 1024 920 / 920 Output Total 300 / 1050 1300 / 1300 Balance 215 / -26 -380 / -380 Current Medications Atorvastatin Calcium (Lipitor) 80 mg PO QHS [facility] Last Admin: 11/17/17 21:37 Dose: 80 mg Calcium/Vitamin D (Os-Wallace 500mg + D) 1 tablet PO BID [facility] Last Admin: 11/18/17 08:08 Dose: 1 tablet Clopidogrel Bisulfate (Plavix) 75 mg PO DAILY [facility] Last Admin: 11/18/17 08:08 Dose: 75 mg Enoxaparin Sodium (Lovenox) 40 mg SC DAILY@1000 [facility] Last Admin: 11/18/17 08:07 Dose: 40 mg Sodium Chloride () 1,000 mls @ 60 mls/hr IV .[id number] [facility] Last Admin: 11/17/17 14:53 Dose: 60 mls/hr Magnesium Hydroxide (Milk Of Magnesia) 30 ml PO DAILY PRN PRN Reason: Constipation Metoprolol Tartrate (Lopressor (Beta Juan Carlos)) 50 mg PO BID [facility] Last Admin: 11/18/17 08:07 Dose: 50 mg Multivitamins/Minerals (Ocuvite) 1 tablet PO DAILY [facility] Last Admin: 11/18/17 08:08 Dose: 1 tablet Pantoprazole Sodium (Protonix) 20 mg PO DAILY [facility] Last Admin: 11/18/17 08:08 Dose: 20 mg Potassium Chloride (K-Dur) 20 meq PO BID [facility] Last Admin: 11/18/17 08:07 Dose: 20 meq Sodium Chloride () 5 - 30 ml IV UD PRN PRN Reason: SALINE FLUSH Medical Necessity - Tobacco Use Smoking Status: Never smoker Tobacco Use: Non-smoker Assessment/Plan All Active Problems Stroke (Acute) Hypokalemia (Resolved) Biliary colic (Acute) Biliary calculus (Acute) 81-year-old female past medical history of hypertension, hyperlipidemia comes in with complaints of severe dizziness with nausea and vomiting. 1. Intractable dizziness/ataxic gait due to acute cerebellar stroke, seen on MRI of the brain, allergic to aspirin, on Plavix, on atorvastatin 40 mg p.o., 2D echo is normal MRA head and neck shows atherosclerosis of the carotid with no hemodynamically significant stenosis 2. Essential hypertension, on home metoprolol regimen, blood pressures are controlled 3. Hypokalemia, resolved, 4. Hyperlipidemia, total cholesterol is 159, LDL is 84, HDL is 60, on atorvastatin 40mg po daily. 5. GERD, on a PPI 6. DVT PPx- Lovenox SC Code Visit Inpatient E&M: 66246 Subs Hosp L2
[2017-11-18] MEDS: 0.9% Normal Saline 1,000 ML 60 ML IV (09:14)
--- NOTE | 2017-11-18 11:30 | CASEMGMT ---
FRANCISCO J OGLESBY Face to Face with patient for initial transition planning/care coordination assessment. FRANCISCO J OGLESBY introduced self and role at [facility]. Patient sitting in chair, alert and oriented. Patient willing to participate in assessment and is able to answer all questions appropriately. Care providers, pharmacy, and demographics verified. Patient state that she lives with her in a 1 story home. Patient states that her is currently in TCU at this time and she would be home alone if discharged to home. Per patient, therapy is recommend further rehab. Patient is interested in RU or TCU. Patient states she has no further needs or concerns at this time. Referral made to [facility] for placement Disposition Plan: Inpatient rehab pending precert.
--- NOTE | 2017-11-18 12:20 | CASEMGMT ---
Social Work Referral for placement. Spoke with patient in room. Patient currently lives with spouse in the community. Patient reporting that patient spouse is currently not at home and in the Transitional Care Unit. Patient reporting to be concerned about returning home alone at this time and to not feel strong enough. Patient requesting for referral to be made to Inpatient Rehab first as patient has been determined to have had a stroke. Patient second option would be the Transitional Care Unit. This social secretary educating patient that a precert would need to be obtained for either Inpatient Rehab or Transitional Care Unit through patient insurance. Patient voicing understanding. Patient also aware that patient has walked over 100' at a CGA level and that patient insurance may not approve therapy within a facility. Patient reporting to have family that is able to check in with patient throughout the week if patient is not approved for a facility but patient is wanting to transition to a facility or at least attempt. Emotional support given. Patient receptive and pleasant during conversation. Support given. Telephone call to Keren, Inpatient RehabKe[facility] request for referral to be made on Monday as that is when Keren will be able to look over the case. Collaborating with Doctor and RN RENY on above information. Will continue to follow. Geovanna LEE, HAND CULTIVATOR
--- NOTE | 2017-11-18 12:20 | PCM.CONS.GEN ---
Problem List (1) Stroke Status: Acute Qualifiers: CVA mechanism: unspecified Qualified Code(s): I63.9 - Cerebral infarction, unspecified Reason for Consult Date of Consultation: 11/18/17 Reason for Consultation: Stroke, Dizziness History of Present Illness: The patient is a 81 year old CF with PMH HTN, HLD admitted with dizziness. Per patient she started having dizziness about 4 days ago, since last Monday (11/15/17), would feel foggy, lightheaded, had difficulty in walking, had nausea, vomiting, since dizziness persisted she got admitted, found to have acute left cerebellar stroke on MRI brain done on admission. Per patient she lives with her , who is unfortunately is hospitalized at present, ambulates with walker when she is out of the home, denies any frequent falls, does drive and does not need any ADLs. Per patient she is allergic to ASA and has hives when she takes ASA. Denies any focal motor weakness, BAIN, sensory loss, visual disturbances or speech disturbances. Per patient her dizziness has improved at present. [] Past Medical History Past Medical History (Chronic Problems): Chronic Problems HTN (hypertension) (Chronic) Dyslipidemia (Chronic) Allergies aspirin Allergy (Verified 11/16/17 15:13) Hives tetanus immune globulin Allergy (Verified 11/16/17 15:13) Rash Home Medications: Ambulatory Orders Medication Instructions Recorded Hydrochlorothiazide [Hctz] 25 mg PO DAILY 05/13/14 Metoprolol Tartrate [Lopressor 50 mg PO BID 05/13/14 (beta meghana)] Pravastatin [Pravachol] 20 mg PO QHS 05/13/14 Potassium Chloride [K-Dur] 20 meq PO BID 07/10/17 Calcium Carbonate/Vitamin D3 1 each PO BID 11/16/17 [Caltrate 600 Plus D3 Tablet] Gluc Fritz/Chondro Fritz A/Vit C/Mn 2 each PO DAILY 11/16/17 [Glucosamine-Chondroitin Cap] Ibuprofen 200 mg PO 4X/DAY PRN PRN 11/16/17 Multivitamin [Multiple Vitamins] 1 each PO DAILY 11/16/17 Omeprazole Magnesium [Prilosec Otc] 20 mg PO DAILY 11/16/17 Surgical History: - - Breast biopsy otherwise unremarkable Lives: Spouse/ Significant Other Smoking Status: Never smoker Tobacco Use: Non-smoker Alcohol: None Drugs: None - *Family History Sibling History Items: - - Gallstones Maternal History Items: No pertinent history Paternal History Items: No pertinent history Review of Systems Constitutional: Reports: - - complete ROS negative except as documented in HPI Patient Problems: Active and Suspected Problems Stroke (Acute) - Physical Exam General: Alert, Oriented x3 HEENT: Normocephalic Neck: Supple Lungs: Clear to auscultation Cardiovascular: Normal S1, Normal S2 Abdomen: Bowel Sounds Present Extremities: No cyanosis Skin: No rashes Musculoskeletal: No Tenderness to Palpation of Joints or Extremities Neurological: - - consious, alert, CN 2-12 grossly intact, Power 5/5 all 4 extremities, no sensory loss, no cerebellar signs, Reflexes + B/L B/S/T/K/A, gait deferred, NIHSS 0 at present, mRS 0 at baseline prior to admission. Psych/Mental Status: Normal Affect Vital Signs Temp Pulse Resp BP Pulse Ox 98.8 F 60 15 141/78 H 95 11/18/17 11:50 11/18/17 11:54 11/18/17 11:50 11/18/17 11:50 11/18/17 11:50 Oxygen Delivery Method Room Air Weight: 58.8 kg Body Mass Index (BMI) 21.6 Intake and Output for Last 24 Hours 11/16/17 11/17/17 11/18/17 23:59 23:59 23:59 Intake Total 515 / 1024 1500 / 1500 Output Total 300 / 1050 1550 / 1550 Balance 215 / -26 -50 / -50 Assessment/Plan All Active Problems Stroke (Acute) Hypokalemia (Resolved) Biliary colic (Acute) Biliary calculus (Acute) The patient is a 81 year old CF with PMH HTN, HLD admitted with dizziness. Per patient she started having dizziness about 4 days ago, since last Monday (11/15/17), would feel foggy, lightheaded, had difficulty in walking, had nausea, vomiting, since dizziness persisted she got admitted, found to have acute left cerebellar stroke on MRI brain done on admission. Per patient she lives with her , who is unfortunately is hospitalized at present, ambulates with walker when she is out of the home, denies any frequent falls, does drive and does not need any ADLs. Per patient she is allergic to ASA and has hives when she takes ASA. Denies any focal motor weakness, BAIN, sensory loss, visual disturbances or speech disturbances. Per patient her dizziness has improved at present. Impression Acute left cerebellar infarct (small) Plan -MRI brain images reviewed- small acute/subacute left cerebellar infarct -MRA head/neck reported no hemodynamically significant stenosis or occlusion -On Plavix -Change Lipitor to 40 mg PO q hs -LDL-84, await Hba1c -TTE-EF 60%, normal LA size -Orthostatic vitals negative -Recommend 30 day radiation monitor -Fall precautions -PT/OT -Stroke risk factors discussed and stroke education provided -Follow up with Neurology in 2-3 weeks as outpatient -Please call with questions if any -Thank you for allowing us to participate in patients care and management I spent 60 minutes taking history, doing physical examination, reviewing medical records, coordinating care and counseling the patient. Code Visit Inpatient E&M: 12366 Init Hosp L3
[2017-11-18] MEDS: Atorvastatin Calcium 40 MG Tablet PO (21:57)
[2017-11-19] VITALS (14 sets, daily range): BP systolic 126–160; BP diastolic 64–77; PULSE 59–76; RESP 12–17; TEMP 36.4–36.8; O2SAT 93–96; BMI 21.6
[2017-11-19] MEDS: Metoprolol Tartrate 50 MG Tablet PO ×2 (08:11→21:51)
[2017-11-19] MEDS: Enoxaparin 40 MG/0.4 ML Syringe SC (08:12)
[2017-11-19] MEDS: Calcium Carb/Vitamin D 1 TABLET Tablet PO ×2 (08:12→21:48)
[2017-11-19] MEDS: Clopidogrel Bisulfate 75 MG Tablet PO (08:12)
[2017-11-19] MEDS: Pantoprazole Sodium 20 MG Tablet PO (08:13)
--- NOTE | 2017-11-19 09:55 | PN_ITS ---
Patient Problems: Active and Suspected Problems Stroke (Acute) Subjective: Patient seen and examined. Complains of dyspepsia. Denies fever or chills or chest pain. Objective: Physical exam: General: Alert, Oriented x3, Cooperative, No apparent distress HEENT: Atraumatic, PERRLA, EOMI, Normocephalic Oral: Moist Mucosa Neck: Supple Lungs: Clear to auscultation, Normal air movement Cardiovascular: Regular rate, Regular Rhythm, Normal S1, Normal S2, No murmurs Abdomen: Bowel Sounds Present, Soft, Non Tender, Non-Distended, No Hepato- splenomegaly Extremities: No edema Skin: No rashes, No breakdown Musculoskeletal: No Tenderness to Palpation of Joints or Extremities Lymphatic: No Cervical, Supraclavicular, or Inguinal Adenopathy Neurological: Cranial nerves II-XII grossly intact, Neuro grossly intact Psych/Mental Status: Normal Affect, Appropriate Vitals/I&O's: Vital Signs Temp Pulse Resp BP Pulse Ox 97.6 F L 66 16 160/77 H 96 11/19/17 08:10 11/19/17 08:11 11/19/17 08:10 11/19/17 08:11 11/19/17 08:10 Oxygen Delivery Method Room Air Weight: 58.8 kg Body Mass Index (BMI) 21.6 Intake and Output for Last 24 Hours 11/17/17 11/18/17 11/19/17 23:59 23:59 23:59 Intake Total 515 / 1024 2116 / 2116 Output Total 300 / 1050 3250 / 3250 200 / 200 Balance 215 / -26 -1134 / -1134 -200 / -200 Laboratory Results 11/18/17 12:35: Hemoglobin A1c 6.0 Current Medications Atorvastatin Calcium (Lipitor) 40 mg PO QHS [facility] Last Admin: 11/18/17 21:57 Dose: 40 mg Calcium/Vitamin D (Os-[place] 500mg + D) 1 tablet PO BID [facility] Last Admin: 11/19/17 08:12 Dose: 1 tablet Clopidogrel Bisulfate (Plavix) 75 mg PO DAILY [facility] Last Admin: 11/19/17 08:12 Dose: 75 mg Enoxaparin Sodium (Lovenox) 40 mg SC DAILY@1000 [facility] Last Admin: 11/19/17 08:12 Dose: 40 mg Magnesium Hydroxide (Milk Of Magnesia) 30 ml PO DAILY PRN PRN Reason: Constipation Metoprolol Tartrate (Lopressor (Beta Juan Carlos)) 50 mg PO BID [facility] Last Admin: 11/19/17 08:11 Dose: 50 mg Multivitamins/Minerals (Ocuvite) 1 tablet PO DAILY [facility] Last Admin: 11/19/17 08:12 Dose: 1 tablet Ondansetron HCl (Zofran) 4 mg IV Q6H PRN PRN PRN Reason: NAUSEA/VOMITING Pantoprazole Sodium (Protonix) 20 mg PO DAILY [facility] Last Admin: 11/19/17 08:13 Dose: 20 mg Potassium Chloride (K-Dur) 20 meq PO BID [facility] Last Admin: 11/19/17 08:11 Dose: 20 meq Sodium Chloride () 5 - 30 ml IV UD PRN PRN Reason: SALINE FLUSH Medical Necessity - Tobacco Use Smoking Status: Never smoker Tobacco Use: Non-smoker Assessment/Plan All Active Problems Stroke (Acute) Hypokalemia (Resolved) Biliary colic (Acute) Biliary calculus (Acute) 81-year-old female past medical history of hypertension, hyperlipidemia comes in with complaints of severe dizziness with nausea and vomiting. 1. Intractable dizziness/ataxic gait due to acute cerebellar stroke, patient is allergic to aspirin, on Plavix, on atorvastatin 40 mg p.o., 2D echo is normal MRA head and neck shows atherosclerosis of the carotid with no hemodynamically significant stenosis, PT and OT are evaluating patient. Will likely be discharged to acute rehab versus TCU, continue on Plavix and statins. Patient will have a 30-day event monitor at discharge. 2. Essential hypertension, on home metoprolol regimen, blood pressures are controlled 3. Hypokalemia, resolved, 4. Hyperlipidemia, total cholesterol is 159, LDL is 84, HDL is 60, on atorvastatin 40mg po daily. 5. GERD, on a PPI 6. DVT PPx- Lovenox SC 7. Disposition: DC to acute rehab or SNF when bed is available. Code Visit Inpatient E&M: 73028 Subs Hosp L2
[2017-11-19] MEDS: 0.9% NaCl Peripheral Flush Adult/Peds IV (17:10)
[2017-11-19] MEDS: Atorvastatin Calcium 40 MG Tablet PO (21:48)
[2017-11-20] VITALS (14 sets, daily range): BP systolic 125–161; BP diastolic 68–79; PULSE 63–77; RESP 16–18; TEMP 36.6–37.2; O2SAT 95–100; BMI 21.6
--- NOTE | 2017-11-20 08:54 | CASEMGMT ---
EDISON received a note from weekend SW that rehab is being recommended. EDISON called Keren and asked her to review patient's chart. Lana MEDINA MSW
[2017-11-20] MEDS: Calcium Carb/Vitamin D 1 TABLET Tablet PO ×2 (09:07→22:02)
[2017-11-20] MEDS: Metoprolol Tartrate 50 MG Tablet PO ×2 (09:07→22:02)
[2017-11-20] MEDS: Enoxaparin 40 MG/0.4 ML Syringe SC (09:07)
[2017-11-20] MEDS: Pantoprazole Sodium 20 MG Tablet PO (09:07)
[2017-11-20] MEDS: Clopidogrel Bisulfate 75 MG Tablet PO (09:07)
--- NOTE | 2017-11-20 12:30 | CASEMGMT ---
[facility] 4th floor rehab can take patient. EDISON faxed clinicals to [facility]. Await on [facility]'s return call. Plan: [facility] 4th floor rehab unit pending insurance approval. Lana THOMPSON
--- NOTE | 2017-11-20 12:45 | CHAPLAIN ---
Type of Pastoral Visit _x__ Initial Visit ___ Follow-up Visit ___ On-call Visit ___ General Patient Visit ___ Spiritual Assessment ___ Family Conference ___ Bereavement ___ Rapid Response ___ Code Blue ___ Other (describe below) Pastoral Care Referral From _x__ Patient ___ Family ___ Nurse ___ Physician ___ Thoracic Medicine Physician ___ Drilling Field Operator ___ Other (describe below) Sacrament/Intervention _x__ Active listening ___ Anointing ___ Samaritan ___ Bereavement ___ Communion _x__ Geraldine exploration ___ ___ Life review _x__ Prayer ___ Reconciliation ___ Sacrament of Sick _x__ Supportive presence ___ Wedding ___ Other (describe below) Pastoral Comments
--- NOTE | 2017-11-20 12:53 | CASEMGMT ---
EDISON notified patient and her family that [facility] 4th floor rehab unit can take her, but we have to wait on insurance to approve her first. EDISON told them EDISON will let them know when EDISON hears anything. Plan: [facility] 4th floor rehab unit pending insurance approval. Lana MEDINA MSW
--- NOTE | 2017-11-20 15:29 | PCM.PN.HOSP ---
Patient Problems: Active and Suspected Problems Stroke (Acute) Subjective: Patient was seen and examined. Denies any new complaints. No more dizzy. Sitting up in a chair. Denies any fever or chills or shortness of breath. Waiting on insurance precertification for discharge Objective: Physical exam: General: Alert, Oriented x3, Cooperative, No apparent distress, not pale, not jaundiced HEENT: Atraumatic, PERRLA, EOMI, Normocephalic Oral: Moist Mucosa Neck: Supple Lungs: Clear to auscultation, Normal air movement Cardiovascular: Regular rate, Regular Rhythm, Normal S1, Normal S2, No murmurs Abdomen: Bowel Sounds Present, Soft, Non Tender, Non-Distended, No Hepato-splenomegaly Extremities: No edema Skin: No rashes, No breakdown Musculoskeletal: No Tenderness to Palpation of Joints or Extremities Lymphatic: No Cervical, Supraclavicular, or Inguinal Adenopathy Neurological: Cranial nerves II-XII grossly intact, Neuro grossly intact Psych/Mental Status: Normal Affect, Appropriate Vitals/I&O's: Vital Signs Temp Pulse Resp BP Pulse Ox 99 F 74 18 134/69 H 97 11/20/17 11:30 11/20/17 11:30 11/20/17 11:30 11/20/17 11:30 11/20/17 11:30 Oxygen Delivery Method Room Air Weight: 58.8 kg Body Mass Index (BMI) 21.6 Intake and Output for Last 24 Hours 11/18/17 11/19/17 11/20/17 23:59 23:59 23:59 Intake Total 2116 / 2116 850 / 850 240 / 240 Output Total 3250 / 3250 1200 / 1200 600 / 600 Balance -1134 / -1134 -350 / -350 -360 / -360 Current Medications Al Hydroxide/Mg Hydroxide (Mylanta Ii) 15 ml PO Q6H PRN PRN PRN Reason: DYSPEPSIA Atorvastatin Calcium (Lipitor) 40 mg PO QHS [facility] Last Admin: 11/19/17 21:48 Dose: 40 mg Calcium/Vitamin D (Os-Wallace 500mg + D) 1 tablet PO BID [facility] Last Admin: 11/20/17 09:07 Dose: 1 tablet Clopidogrel Bisulfate (Plavix) 75 mg PO DAILY [facility] Last Admin: 11/20/17 09:07 Dose: 75 mg Enoxaparin Sodium (Lovenox) 40 mg SC DAILY@1000 [facility] Last Admin: 11/20/17 09:07 Dose: 40 mg Magnesium Hydroxide (Milk Of Magnesia) 30 ml PO DAILY PRN PRN Reason: Constipation Metoprolol Tartrate (Lopressor (Beta Juan Carlos)) 50 mg PO BID [facility] Last Admin: 11/20/17 09:07 Dose: 50 mg Multivitamins/Minerals (Ocuvite) 1 tablet PO DAILY [facility] Last Admin: 11/20/17 09:07 Dose: 1 tablet Ondansetron HCl (Zofran) 4 mg IV Q6H PRN PRN PRN Reason: NAUSEA/VOMITING Pantoprazole Sodium (Protonix) 20 mg PO DAILY [facility] Last Admin: 11/20/17 09:07 Dose: 20 mg Potassium Chloride (K-Dur) 20 meq PO BID [facility] Last Admin: 11/20/17 09:07 Dose: 20 meq Sodium Chloride () 5 - 30 ml IV UD PRN PRN Reason: SALINE FLUSH Last Admin: 11/19/17 17:10 Dose: 10 ml Medical Necessity - Tobacco Use Smoking Status: Never smoker Tobacco Use: Non-smoker Assessment/Plan All Active Problems Stroke (Acute) Hypokalemia (Resolved) Biliary colic (Acute) Biliary calculus (Acute) 81-year-old female past medical history of hypertension, hyperlipidemia comes in with complaints of severe dizziness with nausea and vomiting. 1. 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 Patient will have a 30-day event monitor at discharge. 2. Essential hypertension, on home metoprolol regimen, blood pressures are controlled 3. Hypokalemia, resolved, 4. Hyperlipidemia, total cholesterol is 159, LDL is 84, HDL is 60, on atorvastatin 40mg po daily. 5. GERD, on a PPI 6. DVT PPx- Lovenox SC 7. Disposition: DC to acute rehab or SNF when bed is available. Code Visit Inpatient E&M: 70900 Subs Hosp L2
--- NOTE | 2017-11-20 15:33 | PN_ITS ---
Patient Problems: Active and Suspected Problems Stroke (Acute) Subjective: Patient was seen and examined. Denies any new complaints. No more dizzy. Sitting up in a chair. Denies any fever or chills or shortness of breath. Waiting on insurance precertification for discharge Objective: Physical exam: General: Alert, Oriented x3, Cooperative, No apparent distress, not pale, not jaundiced HEENT: Atraumatic, PERRLA, EOMI, Normocephalic Oral: Moist Mucosa Neck: Supple Lungs: Clear to auscultation, Normal air movement Cardiovascular: Regular rate, Regular Rhythm, Normal S1, Normal S2, No murmurs Abdomen: Bowel Sounds Present, Soft, Non Tender, Non-Distended, No Hepato- splenomegaly Extremities: No edema Skin: No rashes, No breakdown Musculoskeletal: No Tenderness to Palpation of Joints or Extremities Lymphatic: No Cervical, Supraclavicular, or Inguinal Adenopathy Neurological: Cranial nerves II-XII grossly intact, Neuro grossly intact Psych/Mental Status: Normal Affect, Appropriate Vitals/I&O's: Vital Signs Temp Pulse Resp BP Pulse Ox 99 F 74 18 134/69 H 97 11/20/17 11:30 11/20/17 11:30 11/20/17 11:30 11/20/17 11:30 11/20/17 11:30 Oxygen Delivery Method Room Air Weight: 58.8 kg Body Mass Index (BMI) 21.6 Intake and Output for Last 24 Hours 11/18/17 11/19/17 11/20/17 23:59 23:59 23:59 Intake Total 2116 / 2116 850 / 850 240 / 240 Output Total 3250 / 3250 1200 / 1200 600 / 600 Balance -1134 / -1134 -350 / -350 -360 / -360 Current Medications Al Hydroxide/Mg Hydroxide (Mylanta Ii) 15 ml PO Q6H PRN PRN PRN Reason: DYSPEPSIA Atorvastatin Calcium (Lipitor) 40 mg PO QHS [facility] Last Admin: 11/19/17 21:48 Dose: 40 mg Calcium/Vitamin D (Os-Wallace 500mg + D) 1 tablet PO BID [facility] Last Admin: 11/20/17 09:07 Dose: 1 tablet Clopidogrel Bisulfate (Plavix) 75 mg PO DAILY [facility] Last Admin: 11/20/17 09:07 Dose: 75 mg Enoxaparin Sodium (Lovenox) 40 mg SC DAILY@1000 [facility] Last Admin: 11/20/17 09:07 Dose: 40 mg Magnesium Hydroxide (Milk Of Magnesia) 30 ml PO DAILY PRN PRN Reason: Constipation Metoprolol Tartrate (Lopressor (Beta Juan Carlos)) 50 mg PO BID [facility] Last Admin: 11/20/17 09:07 Dose: 50 mg Multivitamins/Minerals (Ocuvite) 1 tablet PO DAILY [facility] Last Admin: 11/20/17 09:07 Dose: 1 tablet Ondansetron HCl (Zofran) 4 mg IV Q6H PRN PRN PRN Reason: NAUSEA/VOMITING Pantoprazole Sodium (Protonix) 20 mg PO DAILY [facility] Last Admin: 11/20/17 09:07 Dose: 20 mg Potassium Chloride (K-Dur) 20 meq PO BID [facility] Last Admin: 11/20/17 09:07 Dose: 20 meq Sodium Chloride () 5 - 30 ml IV UD PRN PRN Reason: SALINE FLUSH Last Admin: 11/19/17 17:10 Dose: 10 ml Medical Necessity - Tobacco Use Smoking Status: Never smoker Tobacco Use: Non-smoker Assessment/Plan All Active Problems Stroke (Acute) Hypokalemia (Resolved) Biliary colic (Acute) Biliary calculus (Acute) 81-year-old female past medical history of hypertension, hyperlipidemia comes in with complaints of severe dizziness with nausea and vomiting. 1. 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 Patient will have a 30-day event monitor at discharge. 2. Essential hypertension, on home metoprolol regimen, blood pressures are controlled 3. Hypokalemia, resolved, 4. Hyperlipidemia, total cholesterol is 159, LDL is 84, HDL is 60, on atorvastatin 40mg po daily. 5. GERD, on a PPI 6. DVT PPx- Lovenox SC 7. Disposition: DC to acute rehab or SNF when bed is available. Code Visit Inpatient E&M: 08997 Subs Hosp L2
[2017-11-20] MEDS: Atorvastatin Calcium 40 MG Tablet PO (22:02)
[2017-11-21] VITALS (7 sets, daily range): BP systolic 118–146; BP diastolic 70–88; PULSE 58–75; RESP 14–18; TEMP 36.4–36.8; O2SAT 92–97; BMI 21.6
[2017-11-21 05:39] LABS: Absolute Lymphocyte Count 2.18 X10^3/ul (0.83-4.51); Absolute Neutrophil Count 3.6 X10^3/uL (2.0-7.7); Basophil# 0.06 X10^3/uL; Basophil% 0.9 % (0-1); Eosinophils% 7.2 % (0-5); Hematocrit 42.5 % (37-47); Hemoglobin 14.2 g/dl (12.0-15.0); Lymphocyte # 2.18 X10^3/ul (4.0); Lymphocyte % 31.4 % (19-41); Mean Corp Hgb Conc 33.4 g/gl (32-36); Mean Corpuscular Hgb 29.8 pg (27.0-32.0); Mean Corpuscular Volume 89.3 fL (81-99); Monocyte# 0.56 X10^3/uL; Monocyte% 8.1 % (0-10); Neutrophil # 3.63 X10^3/uL (2.7-7.7); Neutrophil % 52.1 % (47-70); Platelet Count 247 K/mm3 (150-450); RBC Distribution Width CV 13.1 % (11.6-14.6); RBC Distribution Width SD 42.8 fl (35.1-43.9); Red Blood Count 4.76 M/mm3 (4.2-5.4)
[2017-11-21 05:43] LABS: POSITIVE COUNT NO; POSITIVE DIFFERENTIAL NO; POSITIVE MORPHOLOGY NO
[2017-11-21 05:55] LABS: Anion Gap 6 (5-15); BUN 10 mg/dL (7-18); BUN/Creat Ratio 15.2 RATIO (10-20); Calcium,Total 8.3 mg/dL (8.5-10.1); Chloride 103 mmol/L (98-107); Creatinine, Serum 0.66 mg/dL (0.55-1.02); EST Glomerular Filtration Rate 92 mL/min (>60); Est Glom Filt Rate - Afr Amer 111 mL/min (>60); Estimated Creatinine Clearance 39.03 ml/min; Glucose 92 mg/dL (74-106); Potassium 4.2 mmol/L (3.5-5.1); Sodium Level 137 mmol/L (136-145)
--- NOTE | 2017-11-21 07:18 | CASEMGMT ---
Received a message from [facility] and they will not approve inpatient rehab unit, but they will approve a shelter. EDISON called Keren and let her know and asked her to see if they would have a bed for patient in TCU. She thinks they will, but she will let SW know. Plan: possibly TCU pending bed availability and insurance approval. Lana MEDINA MSW
--- NOTE | 2017-11-21 10:06 | PCM.TXEXTCAR ---
- Diet Cardiac diet - Routine Orders/Code Status Routine Lab Work: CBC - within 1 week, BMP - within 1 week Code Status: Full Code - Therapies Physical Therapy: Eval and Treat Occupational Therapy: Eval and Treat - Allergies/Procedures Done in Hospital Allergies/Adverse Reactions: Allergies aspirin Allergy (Verified 11/16/17 15:13) Hives tetanus immune globulin Allergy (Verified 11/16/17 15:13) Rash Procedures: 2-D Echocardiogram - Type of Care/Length of Stay Estimated LOS: Convalescent Care Less Than 30 days Type of Care Needed: Skilled Rehab Potential: Good Prognosis: Good - Additional Orders/Day of Discharge Day of Discharge: 11/21/17 - Follow Up Care Primary Care Physician: Aguila Beebe DO [Primary Care Provider] - Please follow up with your Primary Care Physician in: within 2 weeks Please Follow Up With: Jag Rodriguez MD When: in 2-3 weeks
--- NOTE | 2017-11-21 10:10 | PCM.DC.SUM ---
Discharge Date and Diagnosis Date of Admission: 11/16/17 Date of Discharge: 11/21/17 - Primary Discharge Diagnosis Active and Suspected Problems Stroke (Acute) - Secondary Discharge Diagnosis Chronic Problems HTN (hypertension) (Chronic) Dyslipidemia (Chronic) Hospital Course and Treatment Imaging Results: Clinical Impression(s) from Imaging Studies Brain CT 11/16/17 15:20 IMPRESSION: Stable chronic ischemic and atrophic changes. No acute intracranial abnormality. Electronically Signed: Casimiro Tavares at 16:05 EDT Tel , Service support , Chest X-Ray 11/16/17 15:30 IMPRESSION: No acute abnormality is seen. Electronically Signed: Carl Wynn MD at 15:44 EDT Tel [phone], Service support , Brain MRI 11/17/17 06:30 IMPRESSION: Acute very small infarctions of the cerebellum. Consider embolic etiologies. N.B. : The above information has been verbally conveyed by Francois Colbert MD to Jen Davis [facility]- In-Patient RN, on 11/17/2017 12:36:02 (ET). Electronically Signed: Franocis Colbert MD at 10:51 EDT Tel , Service support , N.B. : The above information has been verbally conveyed by Francois Colbert MD to Jen Davis [facility]- In-Patient RN, on 11/17/2017 12:36:02 (ET). Head MRA 11/17/17 17:24 IMPRESSION: Normal MRA of the head Electronically Signed: Dennis Linton MD at 22:52 EDT , Service support , Neck MRA 11/17/17 17:24 IMPRESSION: Atherosclerotic disease without evidence for hemodynamically significant stenosis of the carotids utilizing NASCET criteria.. Electronically Signed: Philippe Rosa MD at 21:21 EDT , Service support , Neurology Operations: None Procedures: 2-D Echocardiogram Summary of Care Provided: 81-year-old female with past medical history of hypertension, hyperlipidemia comes in with complaints of severe dizziness, nausea and vomiting. 1. Intractable dizziness/ataxic gait due to acute cerebellar stroke, patient is allergic to aspirin, on Plavix, on atorvastatin 40 mg p.o., 2D echo is normal MRA head and neck shows atherosclerosis of the carotid with no hemodynamically significant stenosis, discharged to SNF on 30-day event monitor. Dr Whitlock will read. 2. Essential hypertension, on home metoprolol regimen 3. Hypokalemia, resolved, 4. Hyperlipidemia, total cholesterol is 159, LDL is 84, HDL is 60, on atorvastatin 40mg po daily. 5. GERD, on PPI Discharge Diet: No Restrictions, Low fat/ Low Cholesterol, 2000 mg Sodium Diet Discharge Activity: Return to Normal Activity Home Medications: Medications to take at Discharge Metoprolol Tartrate [Lopressor (beta meghana)] 50 mg PO BID 05/13/14 Calcium Carbonate/Vitamin D3 [Caltrate 600 Plus D3 Tablet] 1 each PO BID 11/16/17 Gluc Fritz/Chondro Fritz A/Vit C/Mn [Glucosamine-Chondroitin Cap] 2 each PO DAILY 11/16/17 Multivitamin [Multiple Vitamins] 1 each PO DAILY 11/16/17 Omeprazole Magnesium [Prilosec Otc] 20 mg PO DAILY 11/16/17 Atorvastatin Calcium [Lipitor] 40 mg PO QHS 11/21/17 Clopidogrel Bisulfate [Plavix] 75 mg PO DAILY 11/21/17 Enoxaparin [Lovenox] 40 mg SC DAILY@1000 11/21/17 Mag Hydrox/Al Hydrox/Simeth [Mylanta II] 15 ml PO Q6H PRN PRN udc 11/21/17 Primary Care Physician: Aguila Beebe DO [Primary Care Provider] - Please follow up with your Primary Care Physician in: within 2 weeks Please Follow Up With: Jag Rodriguez MD When: in 2-3 weeks Disposition: Acute care Hospital Minutes spent on discharge:: 45 Patient Condition:: Stable Medical Necessity - Tobacco Use Smoking Status: Never smoker Tobacco Use: Non-smoker Meaningful Use Info Meaningful Use Diagnoses (Choose all that apply): Ischemic CVA - CVA Therapy Assessed for PT,OT and/or ST?: Yes - Ischemic Stroke Antithrombotic order at d/c?: Yes Dx of Atrial fib/flutter?: No Anticoagulant at discharge?: No Reason anticoagulant not ordered: Treatment not Indicated Statins at discharge?: Yes Primary Dx Acute Ischemic CVA?: Yes IV tPA ordered during stay?: No Reason IV t-PA not ordered: Treatment Refused by Pt Code Visit Inpatient E&M: 61970 Disch Hosp
[2017-11-21] MEDS: Enoxaparin 40 MG/0.4 ML Syringe SC (10:31)
[2017-11-21] MEDS: Clopidogrel Bisulfate 75 MG Tablet PO (10:31)
[2017-11-21] MEDS: Calcium Carb/Vitamin D 1 TABLET Tablet PO (10:31)
[2017-11-21] MEDS: Metoprolol Tartrate 50 MG Tablet PO (10:31)
[2017-11-21] MEDS: Pantoprazole Sodium 20 MG Tablet PO (10:31)
--- NOTE | 2017-11-21 12:15 | NURSING ---
Report given to Wanda on TCU. Advised her that Pt will get 30 day even monitor placed prior to transfer to TCU.
--- NOTE | 2017-11-21 12:31 | CASEMGMT ---
SW received call and patient was approved for [facility] TCU. EDISON let patient and her family know this information. Plan: [facility] TCU under skilled level of care. Lana THOMPSON
== END 2017-11-21 13:17 | disposition skilled nursing facility (03) | DRG 66 ==
LOC: ED 15:33 → PCU 17:53
PROVIDERS: Psychiatry & Neurology Neurology; Admitting Provider Internal Medicine; Emergency Provider Emergency Medicine; Family Provider Student in an Organized Health Care Education/Training Program; PCP Student in an Organized Health Care Education/Training Program; Visit Provider Internal Medicine
DX: I63.9 Cerebral infarction, unspecified (principal); E78.5 Hyperlipidemia, unspecified; E87.6 Hypokalemia; I10 Essential (primary) hypertension; Z79.899 Other long term (current) drug therapy; Z88.6 Allergy status to analgesic agent; R26.0 Ataxic gait; R42 Dizziness and giddiness; K21.9 Gastro-esophageal reflux disease without esophagitis
CPT/HCPCS: 36415; 70450; 70544; 70549; 70551; 71045; 80048; 80053; 80061; 81001; 83036; 84443; 84484; 85025; 93005; 93225; 93306; 97110; 97116; 97162; 97166; 97530; 97535; 99285; A9585; J7030; J7040; A4216; J2405

== ENCOUNTER 2017-11-21 14:00 | Inpatient (IN) | payer MEDICARE, SELFPAY ==
[2017-11-21 15:06] VITALS: BP 118/59; PULSE 54; RESP 16; TEMP 36.5; O2SAT 93
--- NOTE | 2017-11-21 15:13 | NURSING ---
Patient admitted to room 17b via wheelchair from PCU, patient oriented to room and call light system explained.
[2017-11-21 16:02] VITALS: BMI 21.4
[2017-11-21 16:03] VITALS: BMI 21.5
--- NOTE | 2017-11-21 17:07 | PCM.HP.STD ---
Problem List (1) Dizziness Status: Acute (2) Nausea and vomiting Status: Acute (3) Near syncope Status: Acute (4) Cerebellar stroke, acute Status: Acute (5) Hyperlipidemia Status: Chronic (6) GERD (gastroesophageal reflux disease) Status: Chronic (7) Hypokalemia Status: Acute (8) HTN (hypertension) Status: Chronic History of Present Illness Date of Admission: 11/21/17 Chief Complaint: Here for rehabilitation, strengthening, prior to discharge home. The patient is a 81 year old Female with below past medical history presented to [facility] Emergency Department 11/16/2017 with dizziness. 11/16/2017 CT brain stable chronic ischemic, atrophic changes. 11/16/2017 EKG sinus rhythm with 1st degree AV block, left axis deviation. Dizziness, nausea, vomiting, lightheadedness. Near syncope, crawled into house. IV fluids, Zofran given. Chest X-ray negative. CBC okay, K 3.3, glucose 138, Troponin negative. 11/16/2017 Admit to Hospital. MRI brain to evaluate posterior circulation stroke. Replace potassium chloride. 11/17/2017 MRI brain showed acute small infarctions of cerebellum, consider embolic source. 11/17/2017 Echo Normal LV size. Left ventricular systolic function normal. EF 60% Stage 1 diastolic dysfunction. 11/17/2017 MRA head normal. 11/17/2017 MRA neck no hemodynamically significant stenosis. 11/18/2017 Dr. Rodriguez recommended Plavix, Lipitor 40MG at bedtime, [address] Whitlock will read manager cardiac. 11/21/2017 Admit to TCU for rehabilitation, strengthening, prior to discharge home. Past Medical History Past Medical History (Chronic Problems): Chronic Problems Hyperlipidemia (Chronic) GERD (gastroesophageal reflux disease) (Chronic) HTN (hypertension) (Chronic) Dyslipidemia (Chronic) Allergies aspirin Allergy (Verified 11/16/17 15:13) Hives tetanus immune globulin Allergy (Verified 11/16/17 15:13) Rash Home Medications: Ambulatory Orders Medication Instructions Recorded Metoprolol Tartrate [Lopressor 50 mg PO BID 05/13/14 (beta meghana)] Calcium Carbonate/Vitamin D3 1 each PO BID 11/16/17 [Caltrate 600 Plus D3 Tablet] Gluc Fritz/Chondro Fritz A/Vit C/Mn 2 each PO DAILY 11/16/17 [Glucosamine-Chondroitin Cap] Multivitamin [Multiple Vitamins] 1 each PO DAILY 11/16/17 Omeprazole Magnesium [Prilosec Otc] 20 mg PO DAILY 11/16/17 Atorvastatin Calcium [Lipitor] 40 mg PO QHS 11/21/17 Clopidogrel Bisulfate [Plavix] 75 mg PO DAILY 11/21/17 Enoxaparin [Lovenox] 40 mg SC DAILY@1000 11/21/17 Mag Hydrox/Al Hydrox/Simeth 15 ml PO Q6H PRN PRN udc 11/21/17 [Mylanta II] Surgical History: - - Breast biopsy otherwise unremarkable Psychiatric History: No pertinent psych hx 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 Lives: Spouse/ Significant Other Smoking Status: Never smoker Tobacco Use: Non-smoker Alcohol: None Drugs: None - *Family History Sibling History Items: - - Gallstones Maternal History Items: No pertinent history Paternal History Items: No pertinent history Review of Systems Constitutional: Denies: Chills, Fever, Weight Change HEENT: Denies: Head Aches, Sinus Congestion, Sinus Drainage Cardiovascular: Denies: Chest Pain, Palpitations Respiratory: Denies: Cough, Shortness of breath at rest, Sputum production Gastrointestinal: Denies: Abdominal Pain, Nausea, Vomiting Genitourinary: Denies: Dysuria Musculoskeletal: Denies: Joint Pain, Joint Tenderness Skin: Denies: Rash, Wounds Neurological: Denies: Numbness, Tingling, Focal weakness Psychiatric: Denies: Anxiety, Depression, Homicidal Ideations, Suicidal Ideations Hematologic/ Lymphatic: Denies: Easy Bruising, Easy Bleeding VTE Information - Inpt Only VTE Present on Admission: No VTE Mechan Device Prophylaxis: Knee High YEIMY Hose VTE Pharm Prophylaxis ordered?: Yes Patient Problems: Active and Suspected Problems Dizziness (Acute) Nausea and vomiting (Acute) Near syncope (Acute) Cerebellar stroke, acute (Acute) - Physical Exam General: Alert, Oriented x3, Cooperative HEENT: Atraumatic, PERRLA, EOMI, Normocephalic Neck: Supple, No JVD, Negative Carotid Bruits Lungs: Clear to auscultation, Normal air movement Cardiovascular: Regular rate, No murmurs Abdomen: Bowel Sounds Present, Soft, Non Tender Extremities: No edema, Capillary Refill Less than 3 Seconds Skin: No rashes, No breakdown Musculoskeletal: No Tenderness to Palpation of Joints or Extremities Neurological: Cranial nerves II-XII grossly intact Psych/Mental Status: Normal Affect, Appropriate Vital Signs Temp Pulse Resp BP Pulse Ox 97.7 F L 54 L 16 118/59 L 93 11/21/17 15:06 11/21/17 15:06 11/21/17 15:06 11/21/17 15:06 11/21/17 15:06 Oxygen Delivery Method Room Air Weight: 58.513 kg Body Mass Index (BMI) 21.4 Assessment/Plan All Active Problems Stroke (Acute) Dizziness (Acute) Nausea and vomiting (Acute) Near syncope (Acute) Cerebellar stroke, acute (Acute) Hypokalemia (Acute) Biliary colic (Acute) Biliary calculus (Acute) 81 year old female with below past medical history hospitalized for dizziness secondary to acute small cerebellar infarcts, complicated by hypokalemia, admitted to TCU with debility, here for rehabilitation, strengthening, prior to discharge home with spouse. Debility - PT/OT. Pain - Tylenol 1000MG Q8H PRN mild pain. Bowel - Miralax 17GM daily, Senna/colace 1 tablet BID, Dulcolax 10MG PO daily PRN. Pneumonia vaccination - Administer Prevnar 13 and/or Pneumovax 23 as necessary. DVT prophylaxis - Lovenox 40MG SC daily. Acute cerebellar stroke - Plavix 75MG daily, 30 day manager cardiac to be read by Dr. Whitlock. Hyperlipidemia - Atorvastatin 40MG QHS. Calcium deficiency - Calcium with D 1 tablet BID. Hypertension - Metoprolol 50MG twice daily. Nutrition - MVI daily. GERD - Pantoprazole 20MG daily.
--- NOTE | 2017-11-21 17:16 | HP.PCM_ITS ---
Problem List (1) Dizziness Status: Acute (2) Nausea and vomiting Status: Acute (3) Near syncope Status: Acute (4) Cerebellar stroke, acute Status: Acute (5) Hyperlipidemia Status: Chronic (6) GERD (gastroesophageal reflux disease) Status: Chronic (7) Hypokalemia Status: Acute (8) HTN (hypertension) Status: Chronic History of Present Illness Date of Admission: 11/21/17 Chief Complaint: Here for rehabilitation, strengthening, prior to discharge home. The patient is a 81 year old Female with below past medical history presented to [facility] Emergency Department 11/16/2017 with dizziness. 11/16/2017 CT brain stable chronic ischemic, atrophic changes. 11/16/2017 EKG sinus rhythm with 1st degree AV block, left axis deviation. Dizziness, nausea, vomiting, lightheadedness. Near syncope, crawled into house. IV fluids, Zofran given. Chest X-ray negative. CBC okay, K 3.3, glucose 138, Troponin negative. 11/16/2017 Admit to Hospital. MRI brain to evaluate posterior circulation stroke. Replace potassium chloride. 11/17/2017 MRI brain showed acute small infarctions of cerebellum, consider embolic source. 11/17/2017 Echo Normal LV size. Left ventricular systolic function normal. EF 60% Stage 1 diastolic dysfunction. 11/17/2017 MRA head normal. 11/17/2017 MRA neck no hemodynamically significant stenosis. 11/18/2017 Dr. Rodriguez recommended Plavix, Lipitor 40MG at bedtime, [address] Whitlock will read night monitor. 11/21/2017 Admit to TCU for rehabilitation, strengthening, prior to discharge home. Past Medical History Past Medical History (Chronic Problems): Chronic Problems Hyperlipidemia (Chronic) GERD (gastroesophageal reflux disease) (Chronic) HTN (hypertension) (Chronic) Dyslipidemia (Chronic) Allergies aspirin Allergy (Verified 11/16/17 15:13) Hives tetanus immune globulin Allergy (Verified 11/16/17 15:13) Rash Home Medications: Ambulatory Orders Medication Instructions Recorded Metoprolol Tartrate [Lopressor 50 mg PO BID 05/13/14 (beta meghana)] Calcium Carbonate/Vitamin D3 1 each PO BID 11/16/17 [Caltrate 600 Plus D3 Tablet] Gluc Fritz/Chondro Fritz A/Vit C/Mn 2 each PO DAILY 11/16/17 [Glucosamine-Chondroitin Cap] Multivitamin [Multiple Vitamins] 1 each PO DAILY 11/16/17 Omeprazole Magnesium [Prilosec Otc] 20 mg PO DAILY 11/16/17 Atorvastatin Calcium [Lipitor] 40 mg PO QHS 11/21/17 Clopidogrel Bisulfate [Plavix] 75 mg PO DAILY 11/21/17 Enoxaparin [Lovenox] 40 mg SC DAILY@1000 11/21/17 Mag Hydrox/Al Hydrox/Simeth 15 ml PO Q6H PRN PRN udc 11/21/17 [Mylanta II] Surgical History: - - Breast biopsy otherwise unremarkable Psychiatric History: No pertinent psych hx 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 Lives: Spouse/ Significant Other Smoking Status: Never smoker Tobacco Use: Non-smoker Alcohol: None Drugs: None - *Family History Sibling History Items: - - Gallstones Maternal History Items: No pertinent history Paternal History Items: No pertinent history Review of Systems Constitutional: Denies: Chills, Fever, Weight Change HEENT: Denies: Head Aches, Sinus Congestion, Sinus Drainage Cardiovascular: Denies: Chest Pain, Palpitations Respiratory: Denies: Cough, Shortness of breath at rest, Sputum production Gastrointestinal: Denies: Abdominal Pain, Nausea, Vomiting Genitourinary: Denies: Dysuria Musculoskeletal: Denies: Joint Pain, Joint Tenderness Skin: Denies: Rash, Wounds Neurological: Denies: Numbness, Tingling, Focal weakness Psychiatric: Denies: Anxiety, Depression, Homicidal Ideations, Suicidal Ideations Hematologic/ Lymphatic: Denies: Easy Bruising, Easy Bleeding VTE Information - Inpt Only VTE Present on Admission: No VTE Mechan Device Prophylaxis: Knee High YEIMY Hose VTE Pharm Prophylaxis ordered?: Yes Patient Problems: Active and Suspected Problems Dizziness (Acute) Nausea and vomiting (Acute) Near syncope (Acute) Cerebellar stroke, acute (Acute) - Physical Exam General: Alert, Oriented x3, Cooperative HEENT: Atraumatic, PERRLA, EOMI, Normocephalic Neck: Supple, No JVD, Negative Carotid Bruits Lungs: Clear to auscultation, Normal air movement Cardiovascular: Regular rate, No murmurs Abdomen: Bowel Sounds Present, Soft, Non Tender Extremities: No edema, Capillary Refill Less than 3 Seconds Skin: No rashes, No breakdown Musculoskeletal: No Tenderness to Palpation of Joints or Extremities Neurological: Cranial nerves II-XII grossly intact Psych/Mental Status: Normal Affect, Appropriate Vital Signs Temp Pulse Resp BP Pulse Ox 97.7 F L 54 L 16 118/59 L 93 11/21/17 15:06 11/21/17 15:06 11/21/17 15:06 11/21/17 15:06 11/21/17 15:06 Oxygen Delivery Method Room Air Weight: 58.513 kg Body Mass Index (BMI) 21.4 Assessment/Plan All Active Problems Stroke (Acute) Dizziness (Acute) Nausea and vomiting (Acute) Near syncope (Acute) Cerebellar stroke, acute (Acute) Hypokalemia (Acute) Biliary colic (Acute) Biliary calculus (Acute) 81 year old female with below past medical history hospitalized for dizziness secondary to acute small cerebellar infarcts, complicated by hypokalemia, admitted to TCU with debility, here for rehabilitation, strengthening, prior to discharge home with spouse. * Debility - PT/OT. * Pain - Tylenol 1000MG Q8H PRN mild pain. * Bowel - Miralax 17GM daily, Senna/colace 1 tablet BID, Dulcolax 10MG PO daily PRN. * Pneumonia vaccination - Administer Prevnar 13 and/or Pneumovax 23 as necessary. * DVT prophylaxis - Lovenox 40MG SC daily. * Acute cerebellar stroke - Plavix 75MG daily, 30 day night monitor to be read by Dr. Whitlock. * Hyperlipidemia - Atorvastatin 40MG QHS. * Calcium deficiency - Calcium with D 1 tablet BID. * Hypertension - Metoprolol 50MG twice daily. * Nutrition - MVI daily. * GERD - Pantoprazole 20MG daily.
[2017-11-21 18:15] VITALS: BP 118/59; PULSE 75
[2017-11-21] MEDS: Calcium Carb/Vitamin D 1 TABLET Tablet PO (18:15)
[2017-11-21] MEDS: Metoprolol Tartrate 50 MG Tablet PO (18:15)
[2017-11-21] MEDS: Atorvastatin Calcium 40 MG Tablet PO (20:30)
[2017-11-22] MEDS: Pantoprazole Sodium 20 MG Tablet PO (04:53)
[2017-11-22] MEDS: Clopidogrel Bisulfate 75 MG Tablet PO (04:53)
[2017-11-22] MEDS: Senna/Docusate Sodium 1 Tablet PO ×2 (04:53→18:00)
[2017-11-22 04:54] VITALS: BP 145/73; PULSE 65
[2017-11-22] MEDS: Metoprolol Tartrate 50 MG Tablet PO ×2 (04:54→18:00)
[2017-11-22 06:58] LABS: Absolute Lymphocyte Count 1.69 X10^3/ul (0.83-4.51); Absolute Neutrophil Count 3.1 X10^3/uL (2.0-7.7); Basophil# 0.06 X10^3/uL; Eosinophil# 0.39 X10^3/uL; Eosinophils% 6.6 % (0-5); Hematocrit 42.3 % (37-47); Hemoglobin 13.9 g/dl (12.0-15.0); Lymphocyte # 1.69 X10^3/ul (4.0); Lymphocyte % 28.4 % (19-41); Mean Corp Hgb Conc 32.9 g/gl (32-36); Mean Corpuscular Hgb 29.4 pg (27.0-32.0); Mean Corpuscular Volume 89.6 fL (81-99); Mean Platelet Vol. 11.1 fl (6.2-12.0); Monocyte# 0.67 X10^3/uL; Monocyte% 11.3 % (0-10); Neutrophil # 3.13 X10^3/uL (2.7-7.7); Neutrophil % 52.5 % (47-70); Platelet Count 265 K/mm3 (150-450); RBC Distribution Width CV 13.1 % (11.6-14.6); RBC Distribution Width SD 42.7 fl (35.1-43.9); Red Blood Count 4.72 M/mm3 (4.2-5.4)
[2017-11-22 07:04] LABS: POSITIVE COUNT NO; POSITIVE DIFFERENTIAL NO; POSITIVE MORPHOLOGY NO
[2017-11-22 07:05] LABS: Anion Gap 9 (5-15); BUN 10 mg/dL (7-18); Calcium,Total 8.5 mg/dL (8.5-10.1); Chloride 102 mmol/L (98-107); Creatinine, Serum 0.67 mg/dL (0.55-1.02); EST Glomerular Filtration Rate 90 mL/min (>60); Est Glom Filt Rate - Afr Amer 109 mL/min (>60); Estimated Creatinine Clearance 39.03 ml/min; Glucose 93 mg/dL (74-106); Sodium Level 136 mmol/L (136-145)
[2017-11-22] MEDS: Multivitamins,Therapeutic Tablet 1 TABLET PO (08:31)
[2017-11-22] MEDS: Enoxaparin 40 MG/0.4 ML Syringe SC (08:31)
[2017-11-22] MEDS: Calcium Carb/Vitamin D 1 TABLET Tablet PO ×2 (08:31→18:00)
[2017-11-22] MEDS: Tuberculin,Purif.prot.deriv. 50 TU/ML Vial 5 ML ID (13:03)
[2017-11-22 15:42] VITALS: BP 125/66; PULSE 64; RESP 18; TEMP 36.8; O2SAT 95
[2017-11-22 18:00] VITALS: BP 125/56; PULSE 64
[2017-11-22] MEDS: Atorvastatin Calcium 40 MG Tablet PO (20:20)
[2017-11-23 05:04] VITALS: BP 156/74; PULSE 65
[2017-11-23] MEDS: Pantoprazole Sodium 20 MG Tablet PO (05:04)
[2017-11-23] MEDS: Senna/Docusate Sodium 1 Tablet PO ×2 (05:04→16:43)
[2017-11-23] MEDS: Clopidogrel Bisulfate 75 MG Tablet PO (05:04)
[2017-11-23] MEDS: Metoprolol Tartrate 50 MG Tablet PO ×2 (05:04→16:43)
--- NOTE | 2017-11-23 06:58 | NURSING ---
Pt heart monitor leads and battery changed
[2017-11-23] MEDS: Calcium Carb/Vitamin D 1 TABLET Tablet PO ×2 (09:53→16:43)
[2017-11-23] MEDS: Multivitamins,Therapeutic Tablet 1 TABLET PO (09:53)
[2017-11-23] MEDS: Enoxaparin 40 MG/0.4 ML Syringe SC (09:54)
[2017-11-23 16:00] VITALS: BP 137/65; PULSE 72; RESP 18; TEMP 36.7; O2SAT 95
--- NOTE | 2017-11-23 16:39 | CHAPLAIN ---
Type of Pastoral Visit _x__ Initial Visit ___ Follow-up Visit ___ On-call Visit ___ General Patient Visit ___ Spiritual Assessment ___ Family Conference ___ Bereavement ___ Rapid Response ___ Code Blue ___ Other (describe below) Pastoral Care Referral From _x__ Patient ___ Family ___ Nurse ___ Physician ___ Investment Broker ___ Squeegee Finisher ___ Other (describe below) Sacrament/Intervention _x__ Active listening ___ Anointing ___ Confucianist ___ Bereavement ___ Communion ___ Geraldine exploration ___ ___ Life review _x__ Prayer ___ Reconciliation ___ Sacrament of Sick _x__ Supportive presence ___ Wedding ___ Other (describe below) Pastoral Comments couple is together in this room; have met both before; couple will make move to independent living; both have geraldine in God and look to him for help; their only daughter is disabled; prayer welcomed
[2017-11-23 16:43] VITALS: BP 137/65; PULSE 72
[2017-11-23] MEDS: Atorvastatin Calcium 40 MG Tablet PO (20:36)
--- NOTE | 2017-11-23 22:28 | NURSING ---
Patient heart monitor battery changed at this time.
[2017-11-24 05:25] VITALS: BP 146/81; PULSE 79
[2017-11-24] MEDS: Metoprolol Tartrate 50 MG Tablet PO ×2 (05:25→17:50)
[2017-11-24] MEDS: Senna/Docusate Sodium 1 Tablet PO ×2 (05:25→17:50)
[2017-11-24] MEDS: Pantoprazole Sodium 20 MG Tablet PO (05:26)
[2017-11-24] MEDS: Clopidogrel Bisulfate 75 MG Tablet PO (05:26)
[2017-11-24] MEDS: Multivitamins,Therapeutic Tablet 1 TABLET PO (08:13)
[2017-11-24] MEDS: Calcium Carb/Vitamin D 1 TABLET Tablet PO ×2 (08:13→17:50)
--- NOTE | 2017-11-24 08:25 | NURSING ---
Patient's heart monitor battery changed at this time.
[2017-11-24] MEDS: Enoxaparin 40 MG/0.4 ML Syringe SC (10:33)
--- NOTE | 2017-11-24 12:01 | PCM.PN.RX ---
<Sylvester Melchor D - Last Filed: 11/24/17 12:01> Progress Note - Pharmacy Subjective: TCU Admission Objective: Allergies aspirin Allergy (Verified 11/16/17 15:13) Hives tetanus immune globulin Allergy (Verified 11/16/17 15:13) Rash Current Medications Generic Name Dose Route Start Last Admin Trade Name Freq PRN Reason Stop Dose Admin Acetaminophen 1,000 mg 11/21/17 17:35 Tylenol PO Q8H PRN PRN MILD PAIN (1-10) Atorvastatin Calcium 40 mg 11/21/17 22:00 11/23/17 20:36 Lipitor PO 40 mg QHS [facility] Administration Bisacodyl 10 mg 11/21/17 15:28 Dulcolax PO DAILY PRN Constipation Calcium/Vitamin D 1 tablet 11/21/17 17:00 11/24/17 08:13 [facility] Clopidogrel Bisulfate 75 mg 11/22/17 06:00 11/24/17 05:26 Plavix PO 75 mg DAILY [facility] Administration Enoxaparin Sodium 40 mg 11/22/17 10:00 11/24/17 10:33 Lovenox SC 40 mg DAILY@1000 [facility] Administration Metoprolol Tartrate 50 mg 11/21/17 18:00 11/24/17 05:25 Lopressor (Beta Juan Carlos) PO 50 mg BID [facility] Administration Multivitamins 1 tablet 11/22/17 08:00 11/24/17 08:13 Multivitamin PO 1 tablet DAILY@0800 [facility] Administration Pantoprazole Sodium 20 mg 11/22/17 06:00 11/24/17 05:26 Protonix PO 20 mg DAILY [facility] Administration Polyethylene Glycol 17 gm 11/22/17 06:00 11/24/17 05:26 Miralax PO Not Given DAILY [facility] Senna/Docusate Sodium 1 tablet 11/21/17 18:00 11/24/17 05:25 Senokot-S, Pauline-Colace PO 1 tablet BID [facility] Administration Tuberculin PPD 5 tu 11/29/17 10:00 Tubersol, Aplisol, Ppd ID 11/29/17 10:01 X1 ONE Problem List Dizziness (Acute) Nausea and vomiting (Acute) Near syncope (Acute) Cerebellar stroke, acute (Acute) Hyperlipidemia (Chronic) GERD (gastroesophageal reflux disease) (Chronic) Vital Signs Temp Pulse Resp BP Pulse Ox 98.0 F 79 18 146/81 H 95 11/23/17 16:00 11/24/17 05:25 11/23/17 16:00 11/24/17 05:25 11/23/17 16:00 Oxygen Delivery Method Room Air Weight: 58.513 kg Body Mass Index (BMI) 21.4 Sodium 136 mmol/L (136-145) 11/22/17 06:26 Potassium 4.0 mmol/L (3.5-5.1) 11/22/17 06:26 Chloride 102 mmol/L (98-107) 11/22/17 06:26 Carbon Dioxide 25.0 mmol/L (21.0-32.0) 11/22/17 06:26 Anion Gap 9 (5-15) 11/22/17 06:26 BUN 10 mg/dL (7-18) 11/22/17 06:26 Creatinine 0.67 mg/dL (0.55-1.02) 11/22/17 06:26 Est GFR (MDRD) Af Amer 109 mL/min (>60) 11/22/17 06:26 Est GFR (MDRD) Non-Af 90 mL/min (>60) 11/22/17 06:26 BUN/Creatinine Ratio 15.0 RATIO (10-20) 11/22/17 06:26 Glucose 93 mg/dL (74-106) 11/22/17 06:26 Assessment/Plan: 1) Pain APAP for mild pain. Continue to monitor prn medication use, daily pain scores. 2) Stroke/HLD Atorvastatin, clopidogrel. Continue to monitor for s/s stroke. 3) HTN Metoprolol. Continue to monitor BP/HR. 4) DVT PPx Enoxaparin daily. Continue to monitor for bleeding/clot. 5) GI Pantoprazole daily. Continue to monitor for s/s GI distress. 6) Nutrition Multivitamin, Ca/D. Continue to monitor clinically. Psychotropic Medications: None Unnecessary Medications: None Bowel Regimen: 7) Senna/s, PEG, prn bisacodyl. Continue to monitor prn medication use, for constipation/diarrhea. Date of Note:: 11/24/17 - Provider Comments Provider responsibility: Provider responsible to enter orders to implement recommendations <Clint Lucas Chi - Last Filed: 11/24/17 13:59> Progress Note - Pharmacy Subjective: [] Objective: Allergies aspirin Allergy (Verified 11/16/17 15:13) Hives tetanus immune globulin Allergy (Verified 11/16/17 15:13) Rash Current Medications Generic Name Dose Route Start Last Admin Trade Name Freq PRN Reason Stop Dose Admin Acetaminophen 1,000 mg 11/21/17 17:35 Tylenol PO Q8H PRN PRN MILD PAIN (1-3/10) Atorvastatin Calcium 40 mg 11/21/17 22:00 11/23/17 20:36 Lipitor PO 40 mg QHS [facility] Administration Bisacodyl 10 mg 11/21/17 15:28 Dulcolax PO DAILY PRN Constipation Calcium/Vitamin D 1 tablet 11/21/17 17:00 11/24/17 08:13 Os-Wallace 500mg + [facility] Clopidogrel Bisulfate 75 mg 11/22/17 06:00 11/24/17 05:26 Plavix PO 75 mg DAILY [facility] Administration Enoxaparin Sodium 40 mg 11/22/17 10:00 11/24/17 10:33 Lovenox SC 40 mg DAILY@1000 [facility] Administration Metoprolol Tartrate 50 mg 11/21/17 18:00 11/24/17 05:25 Lopressor (Beta Juan Carlos) PO 50 mg BID [facility] Administration Multivitamins 1 tablet 11/22/17 08:00 11/24/17 08:13 Multivitamin PO 1 tablet DAILY@0800 [facility] Administration Pantoprazole Sodium 20 mg 11/22/17 06:00 11/24/17 05:26 Protonix PO 20 mg DAILY [facility] Administration Polyethylene Glycol 17 gm 11/22/17 06:00 11/24/17 05:26 Miralax PO Not Given DAILY [facility] Senna/Docusate Sodium 1 tablet 11/21/17 18:00 11/24/17 05:25 Senokot-S, Pauline-Colace PO 1 tablet BID [facility] Administration Tuberculin PPD 5 tu 11/29/17 10:00 Tubersol, Aplisol, Ppd ID 11/29/17 10:01 X1 ONE Problem List Dizziness (Acute) Nausea and vomiting (Acute) Near syncope (Acute) Cerebellar stroke, acute (Acute) Hyperlipidemia (Chronic) GERD (gastroesophageal reflux disease) (Chronic) Vital Signs Temp Pulse Resp BP Pulse Ox 98.0 F 79 18 146/81 H 95 07/05/18 16:00 11/24/17 05:25 11/23/17 16:00 11/24/17 05:25 11/23/17 16:00 Oxygen Delivery Method Room Air Weight: 58.513 kg Body Mass Index (BMI) 21.4 Sodium 136 mmol/L (136-145) 11/22/17 06:26 Potassium 4.0 mmol/L (3.5-5.1) 11/22/17 06:26 Chloride 102 mmol/L (98-107) 11/22/17 06:26 Carbon Dioxide 25.0 mmol/L (21.0-32.0) 11/22/17 06:26 Anion Gap 9 (5-15) 11/22/17 06:26 BUN 10 mg/dL (7-18) 11/22/17 06:26 Creatinine 0.67 mg/dL (0.55-1.02) 11/22/17 06:26 Est GFR (MDRD) Af Amer 109 mL/min (>60) 11/22/17 06:26 Est GFR (MDRD) Non-Af 90 mL/min (>60) 11/22/17 06:26 BUN/Creatinine Ratio 15.0 RATIO (10-20) 11/22/17 06:26 Glucose 93 mg/dL (74-106) 11/22/17 06:26 Assessment/Plan: Psychotropic Medications: Unnecessary Medications: Bowel Regimen: - Provider Comments Provider responsibility: Provider responsible to enter orders to implement recommendations Provider Comments to Recommendations by Pharmacy: Agree
[2017-11-24 15:55] VITALS: BP 138/68; PULSE 71; RESP 18; TEMP 36.7; O2SAT 97
[2017-11-24 17:50] VITALS: PULSE 88
[2017-11-24] MEDS: Atorvastatin Calcium 40 MG Tablet PO (20:44)
[2017-11-25 06:26] VITALS: BP 153/79; PULSE 70
[2017-11-25] MEDS: Pantoprazole Sodium 20 MG Tablet PO (06:26)
[2017-11-25] MEDS: Metoprolol Tartrate 50 MG Tablet PO ×2 (06:26→16:52)
[2017-11-25] MEDS: Senna/Docusate Sodium 1 Tablet PO ×2 (06:26→16:51)
[2017-11-25] MEDS: Clopidogrel Bisulfate 75 MG Tablet PO (06:26)
--- NOTE | 2017-11-25 07:36 | NURSING ---
Patient's Heart monitor leads and battery changed.
[2017-11-25] MEDS: Calcium Carb/Vitamin D 1 TABLET Tablet PO ×2 (08:02→16:51)
[2017-11-25] MEDS: Multivitamins,Therapeutic Tablet 1 TABLET PO (08:02)
[2017-11-25] MEDS: Enoxaparin 40 MG/0.4 ML Syringe SC (09:17)
[2017-11-25 15:36] VITALS: BP 124/58; PULSE 65; RESP 18; TEMP 36.6; O2SAT 94
[2017-11-25 16:52] VITALS: BP 124/58; PULSE 65
[2017-11-25] MEDS: Atorvastatin Calcium 40 MG Tablet PO (21:39)
[2017-11-26 06:27] VITALS: BP 128/68; PULSE 63
[2017-11-26] MEDS: Metoprolol Tartrate 50 MG Tablet PO ×2 (06:27→18:14)
[2017-11-26] MEDS: Senna/Docusate Sodium 1 Tablet PO ×2 (06:27→18:14)
[2017-11-26] MEDS: Clopidogrel Bisulfate 75 MG Tablet PO (06:27)
[2017-11-26] MEDS: Pantoprazole Sodium 20 MG Tablet PO (06:27)
[2017-11-26] MEDS: Calcium Carb/Vitamin D 1 TABLET Tablet PO ×2 (09:24→18:15)
[2017-11-26] MEDS: Enoxaparin 40 MG/0.4 ML Syringe SC (09:24)
[2017-11-26] MEDS: Multivitamins,Therapeutic Tablet 1 TABLET PO (09:24)
[2017-11-26 15:11] VITALS: BP 115/65; PULSE 60; RESP 16; TEMP 36.5; O2SAT 91
[2017-11-26 18:14] VITALS: BP 115/65; PULSE 60
--- NOTE | 2017-11-26 18:15 | NURSING ---
Battery changed in patient's cardiac care unit nurse.
[2017-11-26] MEDS: Atorvastatin Calcium 40 MG Tablet PO (21:05)
[2017-11-26 21:07] VITALS: PULSE 68; O2SAT 95
[2017-11-27] MEDS: Clopidogrel Bisulfate 75 MG Tablet PO (06:29)
[2017-11-27 06:30] VITALS: BP 116/89; PULSE 68
[2017-11-27] MEDS: Senna/Docusate Sodium 1 Tablet PO ×2 (06:30→17:05)
[2017-11-27] MEDS: Pantoprazole Sodium 20 MG Tablet PO (06:30)
[2017-11-27] MEDS: Metoprolol Tartrate 50 MG Tablet PO ×2 (06:30→17:05)
[2017-11-27] MEDS: Calcium Carb/Vitamin D 1 TABLET Tablet PO ×2 (08:00→17:05)
[2017-11-27] MEDS: Enoxaparin 40 MG/0.4 ML Syringe SC (08:00)
[2017-11-27] MEDS: Multivitamins,Therapeutic Tablet 1 TABLET PO (08:00)
--- NOTE | 2017-11-27 14:01 | CASEMGMT ---
Insurance Clinical information faxed. Pending continued stay approval at this time. Auth#[id number] Geovanna LEE, MANAGER CUSTOMS
[2017-11-27 15:14] VITALS: BP 137/60; PULSE 66; RESP 18; TEMP 36.4; O2SAT 99
--- NOTE | 2017-11-27 16:56 | CASEMGMT ---
Insurance Continued stay approved with next update due on 12/04/17. Auth#[id number] Geovanna LEE, BAG LOADER
[2017-11-27 17:05] VITALS: PULSE 66
[2017-11-27] MEDS: Atorvastatin Calcium 40 MG Tablet PO (21:30)
[2017-11-28] MEDS: Clopidogrel Bisulfate 75 MG Tablet PO (04:47)
[2017-11-28 04:48] VITALS: BP 132/80; PULSE 67
[2017-11-28] MEDS: Metoprolol Tartrate 50 MG Tablet PO ×2 (04:48→17:51)
[2017-11-28] MEDS: Senna/Docusate Sodium 1 Tablet PO ×2 (04:48→17:51)
[2017-11-28] MEDS: Pantoprazole Sodium 20 MG Tablet PO (04:48)
[2017-11-28] MEDS: Enoxaparin 40 MG/0.4 ML Syringe SC (08:37)
[2017-11-28] MEDS: Multivitamins,Therapeutic Tablet 1 TABLET PO (08:37)
[2017-11-28] MEDS: Calcium Carb/Vitamin D 1 TABLET Tablet PO ×2 (08:37→17:51)
--- NOTE | 2017-11-28 13:28 | CASEMGMT ---
Brief interview for mental status (BIMS) and resident mood interview (PHQ-9) completed on this day. BIMS score 15/15. PHQ-9 score 12/15
[2017-11-28 15:07] VITALS: BP 134/82; PULSE 61; RESP 18; TEMP 36.9; O2SAT 99
[2017-11-28 17:51] VITALS: BP 134/82; PULSE 61
[2017-11-28] MEDS: Atorvastatin Calcium 40 MG Tablet PO (21:26)
[2017-11-29 06:06] LABS: Absolute Lymphocyte Count 1.74 X10^3/ul (0.83-4.51); Absolute Neutrophil Count 3.8 X10^3/uL (2.0-7.7); Basophil# 0.04 X10^3/uL; Basophil% 0.6 % (0-1); Eosinophil# 0.48 X10^3/uL; Eosinophils% 7.1 % (0-5); Hematocrit 42.5 % (37-47); Hemoglobin 14.5 g/dl (12.0-15.0); Lymphocyte # 1.74 X10^3/ul (4.0); Lymphocyte % 25.9 % (19-41); Mean Corp Hgb Conc 34.1 g/gl (32-36); Mean Corpuscular Hgb 30.6 pg (27.0-32.0); Mean Corpuscular Volume 89.7 fL (81-99); Mean Platelet Vol. 11.4 fl (6.2-12.0); Monocyte% 8.9 % (0-10); Neutrophil # 3.83 X10^3/uL (2.7-7.7); Neutrophil % 57.1 % (47-70); Platelet Count 265 K/mm3 (150-450); RBC Distribution Width CV 13.2 % (11.6-14.6); Red Blood Count 4.74 M/mm3 (4.2-5.4); White Blood Count 6.7 K/mm3 (4.4-11.0)
[2017-11-29 06:09] LABS: POSITIVE COUNT NO; POSITIVE DIFFERENTIAL NO; POSITIVE MORPHOLOGY NO
[2017-11-29 06:46] LABS: Anion Gap 7 (5-15); BUN 9 mg/dL (7-18); BUN/Creat Ratio 12.5 RATIO (10-20); Calcium,Total 8.4 mg/dL (8.5-10.1); Chloride 102 mmol/L (98-107); Creatinine, Serum 0.72 mg/dL (0.55-1.02); EST Glomerular Filtration Rate 83 mL/min (>60); Est Glom Filt Rate - Afr Amer 100 mL/min (>60); Estimated Creatinine Clearance 39.03 ml/min; Glucose 88 mg/dL (74-106); Sodium Level 138 mmol/L (136-145)
[2017-11-29 08:27] VITALS: BP 167/90; PULSE 83
[2017-11-29] MEDS: Calcium Carb/Vitamin D 1 TABLET Tablet PO ×2 (08:27→21:37)
[2017-11-29] MEDS: Metoprolol Tartrate 50 MG Tablet PO ×2 (08:27→21:38)
[2017-11-29] MEDS: Enoxaparin 40 MG/0.4 ML Syringe SC (08:27)
[2017-11-29] MEDS: Multivitamins,Therapeutic Tablet 1 TABLET PO (08:27)
[2017-11-29] MEDS: Clopidogrel Bisulfate 75 MG Tablet PO (08:28)
[2017-11-29] MEDS: Pantoprazole Sodium 20 MG Tablet PO (08:28)
[2017-11-29] MEDS: Senna/Docusate Sodium 1 Tablet PO ×2 (08:28→21:38)
--- NOTE | 2017-11-29 08:50 | CASEMGMT ---
Social Work Resident spouse, who is currently sharing a room with resident on the Transitional Care Unit had an RUSSET REPAIRER and was sent to the emergency room this morning. This social services specialist following up with resident in room. Resident requesting to go down to the emergency room. This social services specialist wheeling resident down to the emergency room in a wheelchair. Resident spouse laying in bed on bi-pap. Nurse reporting that resident spouse is not doing well and confirming that resident is a DNRCCA. Resident confirming DNRCCA for resident. Resident grandson and friend present at bedside. Resident daughter, Skye currently in a alf and wheelchair bound. Skye is working on getting transportation to the hospital at this time. This social services specialist asking if resident had any further questions/needs. Resident voicing to have no questions at this time. This social services specialist noting that the [place] has been in to see resident and resident spouse several times during stay on the TCU. This social services specialist inquiring if resident would like the [place] to stop by. Resident declining for the [place] to stop by voicing that their cushion mat maker is coming in. This social services specialist communicating that there is a social services specialist that works specifically in the emergency room and that this social services specialist will be making a hand off. Resident agreeable to this. Nurse present in room. Emotional support given. Telephone call to emergency room social services specialistCindy. This social services specialist making handoff. Cindy to follow up with resident and resident family as needed. Social work to continue to follow as needed. Geovanna GARZAW, BEAM DOFFER
--- NOTE | 2017-11-29 15:07 | CASEMGMT ---
Social Work Plan of care meeting was canceled for today due to resident spouse being in the emergency room and then transitioning to hospice. Resident requesting for plan of care meeting to be canceled at this time. Emotional support given to resident. Will attempt to reschedule on a later date. Will continue to follow. Geovanna LEE, WOOD TURNER
--- NOTE | 2017-11-29 21:30 | NURSING ---
Patient back to the unit after visiting with on hospice unit.
[2017-11-29 21:38] VITALS: BP 151/63; PULSE 69
[2017-11-29] MEDS: Atorvastatin Calcium 40 MG Tablet PO (21:38)
[2017-11-29 21:40] VITALS: BP 151/63; PULSE 69; RESP 18; TEMP 36.4; O2SAT 95
[2017-11-29] MEDS: Tuberculin,Purif.prot.deriv. 50 TU/ML Vial 5 ML ID (22:34)
--- NOTE | 2017-11-30 02:59 | NURSING ---
Addendum entered by Georgia Varela 11/30/17 04:03: Message left for Geovanna about patient worrying about who will help take care of her now. Patient also requesting that morning meds be given after 8 am. Will pass along to day shift. Original Note: Pt just notified this nurse that her just . Family asked if she wanted to come she, stated no because she said her last words yesterday. States she doesn't know who will help take care of her know. Will have FRANCISCO J Jones communicate with the social work professor. Pt doesn't want anyone to get her up early today.
[2017-11-30 06:48] VITALS: BP 140/66; PULSE 84
[2017-11-30] MEDS: Metoprolol Tartrate 50 MG Tablet PO ×2 (06:48→18:35)
[2017-11-30] MEDS: Clopidogrel Bisulfate 75 MG Tablet PO (06:49)
[2017-11-30] MEDS: Senna/Docusate Sodium 1 Tablet PO ×2 (06:49→18:35)
[2017-11-30] MEDS: Pantoprazole Sodium 20 MG Tablet PO (06:49)
[2017-11-30] MEDS: Calcium Carb/Vitamin D 1 TABLET Tablet PO ×2 (09:51→18:35)
[2017-11-30] MEDS: Multivitamins,Therapeutic Tablet 1 TABLET PO (09:51)
[2017-11-30] MEDS: Enoxaparin 40 MG/0.4 ML Syringe SC (09:51)
--- NOTE | 2017-11-30 10:21 | NURSING ---
Dr. Lucas updated that pt is requesting a EFRAÍN with daughter today to make arrangements, N.O. received.
--- NOTE | 2017-11-30 10:59 | NURSING ---
EFRAÍN with family to make arrangements for spouse.
[2017-11-30 16:00] VITALS: BP 133/76; PULSE 78; RESP 20; TEMP 37.2; O2SAT 94
--- NOTE | 2017-11-30 16:22 | CASEMGMT ---
Social Work Attempted to speak with resident multiple times today as resident spouse earlier this morning. Was unable to speak with resident as resident was with therapy and then left for planning of the . Will follow up with resident tomorrow as resident plans to return later this day. Will continue to follow. Geovanna LEE, BUFF WHEEL FABRICATOR
--- NOTE | 2017-11-30 18:26 | NURSING ---
Pt returns from EFRAÍN, vital signs taken
[2017-11-30 18:35] VITALS: BP 133/76; PULSE 78
[2017-11-30] MEDS: Atorvastatin Calcium 40 MG Tablet PO (21:50)
[2017-12-01 06:46] VITALS: BP 139/85; PULSE 71
[2017-12-01] MEDS: Metoprolol Tartrate 50 MG Tablet PO ×2 (06:46→17:05)
[2017-12-01] MEDS: Senna/Docusate Sodium 1 Tablet PO ×2 (06:46→17:05)
[2017-12-01] MEDS: Clopidogrel Bisulfate 75 MG Tablet PO (06:46)
[2017-12-01] MEDS: Pantoprazole Sodium 20 MG Tablet PO (06:46)
[2017-12-01] MEDS: Calcium Carb/Vitamin D 1 TABLET Tablet PO ×2 (08:11→17:04)
[2017-12-01] MEDS: Multivitamins,Therapeutic Tablet 1 TABLET PO (08:11)
[2017-12-01] MEDS: Enoxaparin 40 MG/0.4 ML Syringe SC (08:11)
--- NOTE | 2017-12-01 11:16 | CASEMGMT ---
Social Work Meeting with resident and resident friend, Radha in room. Emotional support offered and received by resident. Resident reporting that has been set up for Monday for resident spouse. Resident reporting to be doing well, getting better every day. Resident thanking staff on the Transitional Care Unit for support that has been given. Resident now requesting for this aids social worker to update resident contact information to make resident daughter, Skye Munson ([phone]) as main contact for resident. Support given. Will continue to follow as needed. Geovanna LEE, TALENT ACQUISITION OPERATIONS MANAGER
--- NOTE | 2017-12-01 11:20 | NURSING ---
Heart monitor checked and intact. Batteries full.
[2017-12-01 15:44] VITALS: BP 133/87; PULSE 74; RESP 16; TEMP 36.7; O2SAT 98
[2017-12-01 17:05] VITALS: PULSE 84
[2017-12-01] MEDS: Atorvastatin Calcium 40 MG Tablet PO (22:12)
[2017-12-02 06:12] VITALS: BP 135/63; PULSE 72
[2017-12-02] MEDS: Pantoprazole Sodium 20 MG Tablet PO (06:12)
[2017-12-02] MEDS: Senna/Docusate Sodium 1 Tablet PO ×2 (06:12→16:50)
[2017-12-02] MEDS: Metoprolol Tartrate 50 MG Tablet PO ×2 (06:12→16:51)
[2017-12-02] MEDS: Clopidogrel Bisulfate 75 MG Tablet PO (06:12)
[2017-12-02] MEDS: Multivitamins,Therapeutic Tablet 1 TABLET PO (08:52)
[2017-12-02] MEDS: Calcium Carb/Vitamin D 1 TABLET Tablet PO ×2 (08:52→16:50)
[2017-12-02] MEDS: Enoxaparin 40 MG/0.4 ML Syringe SC (09:01)
--- NOTE | 2017-12-02 10:59 | NURSING ---
pt off unit with family for arrangements for at this time.
[2017-12-02 16:00] VITALS: BP 121/62; PULSE 70; RESP 18; TEMP 36.8; O2SAT 95
[2017-12-02 16:51] VITALS: BP 154/72; PULSE 75
[2017-12-02] MEDS: Atorvastatin Calcium 40 MG Tablet PO (22:14)
[2017-12-03 06:50] VITALS: BP 115/72; PULSE 72
[2017-12-03] MEDS: Metoprolol Tartrate 50 MG Tablet PO ×2 (06:50→16:48)
[2017-12-03] MEDS: Clopidogrel Bisulfate 75 MG Tablet PO (06:50)
[2017-12-03] MEDS: Senna/Docusate Sodium 1 Tablet PO ×2 (06:50→16:48)
[2017-12-03] MEDS: Pantoprazole Sodium 20 MG Tablet PO (06:50)
[2017-12-03] MEDS: Multivitamins,Therapeutic Tablet 1 TABLET PO (07:59)
[2017-12-03] MEDS: Calcium Carb/Vitamin D 1 TABLET Tablet PO ×2 (07:59→16:47)
[2017-12-03] MEDS: Enoxaparin 40 MG/0.4 ML Syringe SC (07:59)
[2017-12-03 11:30] VITALS: RESP 18
[2017-12-03 15:21] VITALS: BP 136/89; PULSE 80; RESP 18; TEMP 36.6; O2SAT 96
[2017-12-03 16:48] VITALS: BP 136/89; PULSE 80
[2017-12-03] MEDS: Atorvastatin Calcium 40 MG Tablet PO (19:42)
[2017-12-04] MEDS: Senna/Docusate Sodium 1 Tablet PO ×2 (06:03→16:35)
[2017-12-04] MEDS: Pantoprazole Sodium 20 MG Tablet PO (06:03)
[2017-12-04] MEDS: Clopidogrel Bisulfate 75 MG Tablet PO (06:03)
[2017-12-04 06:04] VITALS: BP 131/65; PULSE 70
[2017-12-04] MEDS: Metoprolol Tartrate 50 MG Tablet PO ×2 (06:04→16:35)
[2017-12-04] MEDS: Multivitamins,Therapeutic Tablet 1 TABLET PO (08:41)
[2017-12-04] MEDS: Calcium Carb/Vitamin D 1 TABLET Tablet PO ×2 (08:41→16:35)
[2017-12-04] MEDS: Enoxaparin 40 MG/0.4 ML Syringe SC (09:21)
--- NOTE | 2017-12-04 11:03 | MDS.RN ---
Information for the mds was obtained from review of the clinical record, interview of resident, staff, and direct observation of resident's care.
--- NOTE | 2017-12-04 11:05 | CASEMGMT ---
Insurance Clinical information sent. Pending continued stay review at this time. Auth#[id number] Geovanna LEE, PAYROLL SECRETARY
[2017-12-04 15:24] VITALS: BP 126/68; PULSE 69; RESP 18; TEMP 36.7; O2SAT 96
--- NOTE | 2017-12-04 16:10 | CHAPLAIN ---
Type of Pastoral Visit ___ Initial Visit _x__ Follow-up Visit ___ On-call Visit ___ General Patient Visit ___ Spiritual Assessment ___ Family Conference _x__ Bereavement ___ Rapid Response ___ Code Blue ___ Other (describe below) Pastoral Care Referral From _x__ Patient ___ Family ___ Nurse ___ Physician ___ Coding Quality Coordinator ___ Project Management Instructor ___ Other (describe below) Sacrament/Intervention _x__ Active listening ___ Anointing ___ Spiritism _x__ Bereavement ___ Communion ___ Geraldine exploration ___ ___ Life review _x__ Prayer ___ Reconciliation ___ Sacrament of Sick _x__ Supportive presence ___ Wedding ___ Other (describe below) Pastoral Comments spent time with patient to allow for grief expression; calling hours are tonight and graveside services tomorrow for spouse of this patient; couple was nearly 66 years; pt greatest concern is about making decisions for her own future; pt speaks of going home for a couple of weeks after discharge before making final decision for her move to [place] or [place]; pt says her gnosticist is supportive
[2017-12-04 16:35] VITALS: BP 126/68; PULSE 69
--- NOTE | 2017-12-04 16:38 | CASEMGMT ---
Insurance Continued stay approved with next update due on 12/11/17 Auth#[id number] Geovanna LEE, FUR BLENDER
[2017-12-04] MEDS: Atorvastatin Calcium 40 MG Tablet PO (21:34)
[2017-12-05 06:41] VITALS: BP 179/91; PULSE 71
[2017-12-05] MEDS: Metoprolol Tartrate 50 MG Tablet PO ×2 (06:41→17:31)
[2017-12-05] MEDS: Pantoprazole Sodium 20 MG Tablet PO (06:41)
[2017-12-05] MEDS: Senna/Docusate Sodium 1 Tablet PO ×2 (06:41→17:31)
[2017-12-05] MEDS: Clopidogrel Bisulfate 75 MG Tablet PO (06:41)
[2017-12-05] MEDS: Enoxaparin 40 MG/0.4 ML Syringe SC (07:50)
[2017-12-05] MEDS: Calcium Carb/Vitamin D 1 TABLET Tablet PO ×2 (07:51→17:30)
[2017-12-05] MEDS: Multivitamins,Therapeutic Tablet 1 TABLET PO (07:51)
[2017-12-05 16:00] VITALS: BP 138/62; PULSE 77; RESP 18; TEMP 37.1; O2SAT 97
[2017-12-05 17:31] VITALS: PULSE 77
[2017-12-05] MEDS: Atorvastatin Calcium 40 MG Tablet PO (19:58)
[2017-12-06 04:42] VITALS: BP 145/84; PULSE 73
[2017-12-06] MEDS: Metoprolol Tartrate 50 MG Tablet PO ×2 (04:42→17:32)
[2017-12-06] MEDS: Senna/Docusate Sodium 1 Tablet PO ×2 (04:43→17:32)
[2017-12-06] MEDS: Pantoprazole Sodium 20 MG Tablet PO (04:43)
[2017-12-06] MEDS: Clopidogrel Bisulfate 75 MG Tablet PO (04:43)
[2017-12-06] MEDS: Calcium Carb/Vitamin D 1 TABLET Tablet PO ×2 (10:13→17:32)
[2017-12-06] MEDS: Enoxaparin 40 MG/0.4 ML Syringe SC (10:13)
[2017-12-06] MEDS: Multivitamins,Therapeutic Tablet 1 TABLET PO (10:14)
--- NOTE | 2017-12-06 13:11 | CASEMGMT ---
Plan of care meeting held. Resident present as well as resident family. No discharge date set at this time. Resident to continue with further care and treatment on the Transitional Care Unit. Resident plans to discharge home with family at time of discharge. Team currently recommending for resident to have 24hr care at time of discharge. Resident family voicing to provide 24hr care for resident within the home. Resident with insurance update due on 12/11/17, resident and resident family aware that continued stay is not guaranteed. Support given. Will continue to follow. Geovanna LEE, CLOTH CALENDER
[2017-12-06 16:00] VITALS: BP 122/66; PULSE 67; RESP 18; TEMP 36.3; O2SAT 95
[2017-12-06 17:32] VITALS: BP 122/66; PULSE 67
[2017-12-06] MEDS: Atorvastatin Calcium 40 MG Tablet PO (20:29)
[2017-12-07] MEDS: Senna/Docusate Sodium 1 Tablet PO ×2 (05:27→16:50)
[2017-12-07] MEDS: Pantoprazole Sodium 20 MG Tablet PO (05:27)
[2017-12-07 05:28] VITALS: BP 151/76; PULSE 76
[2017-12-07] MEDS: Metoprolol Tartrate 50 MG Tablet PO ×2 (05:28→16:50)
[2017-12-07] MEDS: Clopidogrel Bisulfate 75 MG Tablet PO (05:28)
[2017-12-07 05:51] LABS: Absolute Neutrophil Count 3.4 X10^3/uL (2.0-7.7); Basophil# 0.06 X10^3/uL; Eosinophil# 0.46 X10^3/uL; Eosinophils% 7.6 % (0-5); Hematocrit 42.7 % (37-47); Hemoglobin 14.4 g/dl (12.0-15.0); Lymphocyte % 26.5 % (19-41); Mean Corp Hgb Conc 33.7 g/gl (32-36); Mean Corpuscular Hgb 30.4 pg (27.0-32.0); Mean Corpuscular Volume 90.1 fL (81-99); Mean Platelet Vol. 11.5 fl (6.2-12.0); Monocyte# 0.52 X10^3/uL; Monocyte% 8.6 % (0-10); Neutrophil # 3.37 X10^3/uL (2.7-7.7); Platelet Count 271 K/mm3 (150-450); RBC Distribution Width CV 13.2 % (11.6-14.6); RBC Distribution Width SD 43.2 fl (35.1-43.9); Red Blood Count 4.74 M/mm3 (4.2-5.4)
[2017-12-07 06:10] VITALS: O2SAT 99
[2017-12-07 06:16] LABS: POSITIVE COUNT NO; POSITIVE DIFFERENTIAL NO; POSITIVE MORPHOLOGY NO
[2017-12-07 06:19] LABS: Anion Gap 8 (5-15); BUN 6 mg/dL (7-18); BUN/Creat Ratio 8.8 RATIO (10-20); Calcium,Total 8.7 mg/dL (8.5-10.1); Chloride 104 mmol/L (98-107); Creatinine, Serum 0.68 mg/dL (0.55-1.02); EST Glomerular Filtration Rate 88 mL/min (>60); Est Glom Filt Rate - Afr Amer 107 mL/min (>60); Estimated Creatinine Clearance 38.36 ml/min; Glucose 93 mg/dL (74-106); Sodium Level 140 mmol/L (136-145)
[2017-12-07] MEDS: Enoxaparin 40 MG/0.4 ML Syringe SC (08:19)
[2017-12-07] MEDS: Calcium Carb/Vitamin D 1 TABLET Tablet PO ×2 (08:19→16:50)
[2017-12-07] MEDS: Multivitamins,Therapeutic Tablet 1 TABLET PO (08:19)
[2017-12-07 15:58] VITALS: BP 136/74; PULSE 71; RESP 18; TEMP 36.4; O2SAT 99
[2017-12-07 16:50] VITALS: BP 136/74; PULSE 71
[2017-12-07] MEDS: Atorvastatin Calcium 40 MG Tablet PO (21:38)
[2017-12-08 06:23] VITALS: BP 145/83; PULSE 66
[2017-12-08] MEDS: Metoprolol Tartrate 50 MG Tablet PO ×2 (06:23→17:08)
[2017-12-08] MEDS: Clopidogrel Bisulfate 75 MG Tablet PO (06:23)
[2017-12-08] MEDS: Pantoprazole Sodium 20 MG Tablet PO (06:23)
[2017-12-08] MEDS: Senna/Docusate Sodium 1 Tablet PO ×2 (06:24→17:08)
[2017-12-08] MEDS: Enoxaparin 40 MG/0.4 ML Syringe SC (09:47)
[2017-12-08] MEDS: Multivitamins,Therapeutic Tablet 1 TABLET PO (09:47)
[2017-12-08] MEDS: Calcium Carb/Vitamin D 1 TABLET Tablet PO ×2 (09:47→17:07)
--- NOTE | 2017-12-08 14:39 | NURSING ---
Pt has a red, raised, diffuse, pruritic rash to the back. Dr. Lucas made aware, NO for triamcinolone 0.5% cream to area BID.
[2017-12-08 15:51] VITALS: BP 134/67; PULSE 69; RESP 18; TEMP 36.3; O2SAT 98
[2017-12-08 17:08] VITALS: PULSE 64
[2017-12-08] MEDS: Triamcinolone 0.5% Cream 1 APPLIC TOPICAL (17:10)
[2017-12-08] MEDS: Atorvastatin Calcium 40 MG Tablet PO (19:43)
[2017-12-09] MEDS: Clopidogrel Bisulfate 75 MG Tablet PO (05:42)
[2017-12-09] MEDS: Pantoprazole Sodium 20 MG Tablet PO (05:42)
[2017-12-09] MEDS: Triamcinolone 0.5% Cream 1 APPLIC TOPICAL ×2 (05:42→16:32)
[2017-12-09] MEDS: Senna/Docusate Sodium 1 Tablet PO ×2 (05:43→16:31)
[2017-12-09 05:44] VITALS: BP 154/77; PULSE 65
[2017-12-09] MEDS: Metoprolol Tartrate 50 MG Tablet PO ×2 (05:44→16:31)
[2017-12-09] MEDS: Multivitamins,Therapeutic Tablet 1 TABLET PO (08:00)
[2017-12-09] MEDS: Calcium Carb/Vitamin D 1 TABLET Tablet PO ×2 (08:00→16:31)
[2017-12-09] MEDS: Enoxaparin 40 MG/0.4 ML Syringe SC (10:16)
--- NOTE | 2017-12-09 10:37 | NURSING ---
BATTERY TO HOLTER MONITOR CHANGED THIS MORNING BY LAYBOY TENDER.
[2017-12-09 15:29] VITALS: BP 129/73; PULSE 63; RESP 16; TEMP 36.9; O2SAT 95
[2017-12-09 16:31] VITALS: PULSE 63
[2017-12-09] MEDS: Atorvastatin Calcium 40 MG Tablet PO (22:08)
[2017-12-10 06:29] VITALS: BP 140/83; PULSE 67
[2017-12-10] MEDS: Clopidogrel Bisulfate 75 MG Tablet PO (06:29)
[2017-12-10] MEDS: Pantoprazole Sodium 20 MG Tablet PO (06:29)
[2017-12-10] MEDS: Metoprolol Tartrate 50 MG Tablet PO ×2 (06:29→17:00)
[2017-12-10] MEDS: Senna/Docusate Sodium 1 Tablet PO ×2 (06:29→17:00)
[2017-12-10] MEDS: Triamcinolone 0.5% Cream 1 APPLIC TOPICAL ×2 (06:30→17:01)
--- NOTE | 2017-12-10 07:23 | NURSING ---
Addendum entered by Cindy Michel 12/10/17 15:11: director of business systems aware. Pt stating I may have bumped my leg getting into bed. Will continue to monitor. Original Note: Patient was found to have 7 cm x 4 cm dark bruise to posterior calf. Patient denies knowing what happened to it and denies any mistreatment of staff. Patient is on Lovenox. Dr. Lucas aware.
[2017-12-10] MEDS: Multivitamins,Therapeutic Tablet 1 TABLET PO (07:42)
[2017-12-10] MEDS: Calcium Carb/Vitamin D 1 TABLET Tablet PO ×2 (07:42→17:00)
[2017-12-10] MEDS: Enoxaparin 40 MG/0.4 ML Syringe SC (07:42)
--- NOTE | 2017-12-10 11:22 | NURSING ---
Heart monitor leads and battery changed after shower
[2017-12-10 16:00] VITALS: BP 137/82; PULSE 63; RESP 18; TEMP 36.8; O2SAT 95
[2017-12-10 17:00] VITALS: BP 137/82; PULSE 63
[2017-12-10] MEDS: Atorvastatin Calcium 40 MG Tablet PO (20:11)
[2017-12-11 05:36] VITALS: BP 131/67; PULSE 66
[2017-12-11] MEDS: Metoprolol Tartrate 50 MG Tablet PO ×2 (05:36→16:53)
[2017-12-11] MEDS: Clopidogrel Bisulfate 75 MG Tablet PO (05:36)
[2017-12-11] MEDS: Senna/Docusate Sodium 1 Tablet PO ×2 (05:36→16:53)
[2017-12-11] MEDS: Pantoprazole Sodium 20 MG Tablet PO (05:36)
[2017-12-11] MEDS: Triamcinolone 0.5% Cream 1 APPLIC TOPICAL ×2 (05:36→16:53)
[2017-12-11] MEDS: Enoxaparin 40 MG/0.4 ML Syringe SC (07:57)
[2017-12-11] MEDS: Calcium Carb/Vitamin D 1 TABLET Tablet PO ×2 (07:57→16:53)
[2017-12-11] MEDS: Multivitamins,Therapeutic Tablet 1 TABLET PO (07:57)
--- NOTE | 2017-12-11 12:56 | CASEMGMT ---
Insurance Clinical information sent. Pending continued stay approval at this time. Auth#[id number] Geovanna LEE, CCNA
[2017-12-11 16:00] VITALS: BP 109/66; PULSE 68; RESP 18; TEMP 36.7; O2SAT 94
[2017-12-11 16:53] VITALS: PULSE 68
[2017-12-11] MEDS: Atorvastatin Calcium 40 MG Tablet PO (21:20)
[2017-12-12 05:40] VITALS: BP 135/66; PULSE 65
[2017-12-12] MEDS: Metoprolol Tartrate 50 MG Tablet PO ×2 (05:40→16:55)
[2017-12-12] MEDS: Clopidogrel Bisulfate 75 MG Tablet PO (05:40)
[2017-12-12] MEDS: Pantoprazole Sodium 20 MG Tablet PO (05:40)
[2017-12-12] MEDS: Senna/Docusate Sodium 1 Tablet PO ×2 (05:40→16:54)
[2017-12-12] MEDS: Calcium Carb/Vitamin D 1 TABLET Tablet PO ×2 (09:29→16:54)
[2017-12-12] MEDS: Multivitamins,Therapeutic Tablet 1 TABLET PO (09:29)
[2017-12-12] MEDS: Enoxaparin 40 MG/0.4 ML Syringe SC (09:29)
--- NOTE | 2017-12-12 10:39 | CASEMGMT ---
Brief interview for mental status (BIMS) and resident mood interview (PHQ-9) completed on this day. BIMS score 13/15. PHQ-9 score 10/15
--- NOTE | 2017-12-12 10:40 | CASEMGMT ---
Insurance Continued stay denied with last cover day being 12/14/17 and resident to discharge or financial responsibility to begin on 12/15/17. Auth#[id number] Geovanna LEE, HOME DAY CARE PROVIDER
--- NOTE | 2017-12-12 10:45 | CASEMGMT ---
Social Work Spoke with resident in room. This director of social media marketing communicating to resident that continued stay has been denied by insurance with a last cover day of 12/14/17 and resident to discharge or financial responsibility to begin on 12/15/17. Resident voicing understanding and planning to discharge, but requesting for discharge date to be set for 12/13/17. Spoke with staff/therapy, 12/13/17 is an agreeable to discharge date at this time. Physical and occupational therapy are recommending for resident to have continued services at time of discharge through home health care. Resident is agreeable to recommendation and requesting for home health services to be set up through [facility] ([facility]). Team is also recommending for resident to have 24hr care at time of discharge, resident voicing understanding to this and is reporting that family will be providing 24hr care for resident at time of discharge. Resident reporting that family will provide transportation home for resident as well. Resident reporting to have a walker at home and to have no durable medical equipment needs at this time. Resident requesting for information about medical alert systems, this director of social media marketing provided resident with medical alert system options in the area. Resident declining for this director of social media marketing to contact resident family in regards to discharge date/plan. Resident reporting to be able to contact family on own. Support given. This director of social media marketing also broached topic of how resident was doing with the grief process. Resident reporting to be doing okay and to be working through things. Resident thanking staff for support through the process. Emotional support provided. Telephone call to [facility], Briana. This director of social media marketing making referral for physical and occupational therapy. Order to be completed. Proposed discharge date: 12/13/17 PLAN: Discharge home where family plans to provide 24hr care for resident. Resident will also have home health services. Geovanna LEE, SOLUTIONS DELIVERY CONSULTANT
[2017-12-12 15:32] VITALS: BP 129/55; PULSE 73; RESP 18; TEMP 35.9; O2SAT 98
[2017-12-12 16:55] VITALS: BP 129/55; PULSE 73
[2017-12-12] MEDS: Atorvastatin Calcium 40 MG Tablet PO (21:37)
--- NOTE | 2017-12-12 22:23 | PCM.DC ---
- Discharge Diagnoses Current Active Problems: Current Active and Chronic Problems Dizziness (Acute) Nausea and vomiting (Acute) Near syncope (Acute) Cerebellar stroke, acute (Acute) Hyperlipidemia (Chronic) GERD (gastroesophageal reflux disease) (Chronic) You will use the following diet at home:: No restrictions, Regular Your food should be the consistency of: Regular Your liquids should be the consistency of: Regular/Thin Discharge Activity: Return to Normal Activity, May Shower, Use Walker Weight Bearing Status: Weight bearing as tolerated Call your doctor if you observe: Fever of 101 or Higher, Inability to urinate, Inability to have a bowel movement, Shortness of breath, Chest pain, Uncontrolled pain Allergies/Adverse Reactions: Allergies aspirin Allergy (Verified 11/16/17 15:13) Hives tetanus immune globulin Allergy (Verified 11/16/17 15:13) Rash Medications to take at Discharge Metoprolol Tartrate [Lopressor (beta meghana)] 50 mg PO BID 05/13/14 Calcium Carbonate/Vitamin D3 [Caltrate 600 Plus D3 Tablet] 1 each PO BID 11/16/17 Gluc Fritz/Chondro Fritz A/Vit C/Mn [Glucosamine-Chondroitin Cap] 2 each PO DAILY 11/16/17 Multivitamin [Multiple Vitamins] 1 each PO DAILY 11/16/17 Omeprazole Magnesium [Prilosec Otc] 20 mg PO DAILY 11/16/17 Mag Hydrox/Al Hydrox/Simeth [Mylanta II] 15 ml PO Q6H PRN PRN udc 11/21/17 Acetaminophen [Tylenol] 1,000 mg PO Q8H PRN PRN tablet 12/12/17 Atorvastatin Calcium [Lipitor] 40 mg PO QHS #30 tab 12/12/17 Clopidogrel Bisulfate [Plavix] 75 mg PO DAILY #30 tab 12/12/17 Triamcinolone 0.5% Cream [Kenalog] 1 applic TOPICAL BID tube 12/12/17 The following prescriptions were given: Atorvastatin Calcium [Lipitor] 40 mg PO QHS #30 tab Clopidogrel Bisulfate [Plavix] 75 mg PO DAILY #30 tab Primary Care Physician: Aguila Beebe DO [Primary Care Provider] - Please follow up with your Primary Care Physician in: 1 week. Test Results: Test results from this visit will be discussed in further detail at your follow-up appointment, if applicable. Proposed Discharge Date: 12/13/17
--- NOTE | 2017-12-12 22:25 | PCM.DC.SUM ---
Discharge Date and Diagnosis - Problem List Patient Problems: Active and Suspected Problems Dizziness (Acute) Nausea and vomiting (Acute) Near syncope (Acute) Cerebellar stroke, acute (Acute) Date of Admission: 11/21/17 Date of Discharge: 12/13/17 - Primary Discharge Diagnosis Active and Suspected Problems Dizziness (Acute) Nausea and vomiting (Acute) Near syncope (Acute) Cerebellar stroke, acute (Acute) - Secondary Discharge Diagnosis Chronic Problems Hyperlipidemia (Chronic) GERD (gastroesophageal reflux disease) (Chronic) HTN (hypertension) (Chronic) Dyslipidemia (Chronic) Hospital Course and Treatment Imaging Results: 11/30/17 07:25 Diet: Cardiac/Low Cholesterol Is pt able to select menu?: Yes Operations: None Procedures: None Summary of Care Provided: The patient is a 82 year old Female with below past medical history hospitalized for dizziness secondary to acute small cerebellar infarcts, complicated by hypokalemia, admitted to TCU with debility, here for rehabilitation, strengthening, prior to discharge home with spouse. Unfortunately, resident's Aj Pathak, also on TCU, during Denae's stay, she continues grieving process. Discharge home where family plans to provide 24 hour care for resident, along with Home Health Services. Discharge Diet: No Restrictions Discharge Activity: Return to Normal Activity, May Shower, Use Walker Weight Bearing Status: Weight bearing as tolerated Call your doctor if you observe: Fever of 101 or Higher, Inability to urinate, Inability to have a bowel movement, Shortness of breath, Chest pain, Uncontrolled pain Home Medications: Medications to take at Discharge Metoprolol Tartrate [Lopressor (beta meghana)] 50 mg PO BID 05/13/14 Calcium Carbonate/Vitamin D3 [Caltrate 600 Plus D3 Tablet] 1 each PO BID 11/16/17 Gluc Fritz/Chondro Fritz A/Vit C/Mn [Glucosamine-Chondroitin Cap] 2 each PO DAILY 11/16/17 Multivitamin [Multiple Vitamins] 1 each PO DAILY 11/16/17 Omeprazole Magnesium [Prilosec Otc] 20 mg PO DAILY 11/16/17 Mag Hydrox/Al Hydrox/Simeth [Mylanta II] 15 ml PO Q6H PRN PRN udc 11/21/17 Acetaminophen [Tylenol] 1,000 mg PO Q8H PRN PRN tablet 12/12/17 Atorvastatin Calcium [Lipitor] 40 mg PO QHS #30 tab 12/12/17 Clopidogrel Bisulfate [Plavix] 75 mg PO DAILY #30 tab 12/12/17 Triamcinolone 0.5% Cream [Kenalog] 1 applic TOPICAL BID tube 12/12/17 Following Prescrptions Were Given to Patient: Atorvastatin Calcium [Lipitor] 40 mg PO QHS #30 tab Clopidogrel Bisulfate [Plavix] 75 mg PO DAILY #30 tab Primary Care Physician: Aguila Beebe DO [Primary Care Provider] - Please follow up with your Primary Care Physician in: 1 week. Disposition: Home with Home Health Minutes spent on discharge:: 35 Patient Condition:: Stable Medical Necessity - Tobacco Use Smoking Status: Never smoker Tobacco Use: Non-smoker Meaningful Use Info Meaningful Use Diagnoses (Choose all that apply): None applicable
--- NOTE | 2017-12-12 22:28 | DS.PCM_ITS ---
Discharge Date and Diagnosis - Problem List Patient Problems: Active and Suspected Problems Dizziness (Acute) Nausea and vomiting (Acute) Near syncope (Acute) Cerebellar stroke, acute (Acute) Date of Admission: 11/21/17 Date of Discharge: 12/13/17 - Primary Discharge Diagnosis Active and Suspected Problems Dizziness (Acute) Nausea and vomiting (Acute) Near syncope (Acute) Cerebellar stroke, acute (Acute) - Secondary Discharge Diagnosis Chronic Problems Hyperlipidemia (Chronic) GERD (gastroesophageal reflux disease) (Chronic) HTN (hypertension) (Chronic) Dyslipidemia (Chronic) Hospital Course and Treatment Imaging Results: 11/30/17 07:25 Diet: Cardiac/Low Cholesterol Is pt able to select menu?: Yes Operations: None Procedures: None Summary of Care Provided: The patient is a 82 year old Female with below past medical history hospitalized for dizziness secondary to acute small cerebellar infarcts, complicated by hypokalemia, admitted to TCU with debility, here for rehabilitation, strengthening, prior to discharge home with spouse. Unfortunately, resident's Aj Pathak, also on TCU, during Denae' s stay, she continues grieving process. Discharge home where family plans to provide 24 hour care for resident, along with Home Health Services. Discharge Diet: No Restrictions Discharge Activity: Return to Normal Activity, May Shower, Use Walker Weight Bearing Status: Weight bearing as tolerated Call your doctor if you observe: Fever of 101 or Higher, Inability to urinate, Inability to have a bowel movement, Shortness of breath, Chest pain, Uncontrolled pain Home Medications: Medications to take at Discharge Metoprolol Tartrate [Lopressor (beta meghana)] 50 mg PO BID 05/13/14 Calcium Carbonate/Vitamin D3 [Caltrate 600 Plus D3 Tablet] 1 each PO BID Gluc Fritz/Chondro Fritz A/Vit C/Mn [Glucosamine-Chondroitin Cap] 2 each PO DAILY Multivitamin [Multiple Vitamins] 1 each PO DAILY 11/16/17 Omeprazole Magnesium [Prilosec Otc] 20 mg PO DAILY 11/16/17 Mag Hydrox/Al Hydrox/Simeth [Mylanta II] 15 ml PO Q6H PRN PRN udc 11/21/17 Acetaminophen [Tylenol] 1,000 mg PO Q8H PRN PRN tablet 12/12/17 Atorvastatin Calcium [Lipitor] 40 mg PO QHS #30 tab 12/12/17 Clopidogrel Bisulfate [Plavix] 75 mg PO DAILY #30 tab 12/12/17 Triamcinolone 0.5% Cream [Kenalog] 1 applic TOPICAL BID tube 12/12/17 Following Prescrptions Were Given to Patient: Atorvastatin Calcium [Lipitor] 40 mg PO QHS #30 tab Clopidogrel Bisulfate [Plavix] 75 mg PO DAILY #30 tab Primary Care Physician: Aguila Beebe DO [Primary Care Provider] - Please follow up with your Primary Care Physician in: 1 week. Disposition: Home with Home Health Minutes spent on discharge:: 35 Patient Condition:: Stable Medical Necessity - Tobacco Use Smoking Status: Never smoker Tobacco Use: Non-smoker Meaningful Use Info Meaningful Use Diagnoses (Choose all that apply): None applicable
--- NOTE | 2017-12-12 22:29 | HHNOTE_ITS ---
Home Health Note - Plan Overview of reason of hospitalization: The patient is a 82 year old Female with below past medical history hospitalized for dizziness secondary to acute small cerebellar infarcts, complicated by hypokalemia, admitted to TCU with debility, here for rehabilitation, strengthening, prior to discharge home with spouse. Unfortunately, resident's Aj Pathak, also on TCU, during Denae' s stay, she continues grieving process. Discharge home where family plans to provide 24 hour care for resident, along with Home Health Services. Problems: Patient was seen for Dizziness (Acute) Nausea and vomiting (Acute) Near syncope (Acute) Cerebellar stroke, acute (Acute) Hyperlipidemia (Chronic) GERD (gastroesophageal reflux disease) (Chronic) Complete List of Medical Problems Stroke (Acute) Dizziness (Acute) Nausea and vomiting (Acute) Near syncope (Acute) Cerebellar stroke, acute (Acute) Hyperlipidemia (Chronic) GERD (gastroesophageal reflux disease) (Chronic) Hypokalemia (Acute) Biliary colic (Acute) Biliary calculus (Acute) HTN (hypertension) (Chronic) Dyslipidemia (Chronic) - Requirements and Reasons Disciplines Needed/Ordered: Physical Therapy Reason for Disciplines: Gait Training, Stair Training, Fall Prevention, Home Safety/Equipment Instruction, Balance and/or Posture Training, Transfer Training Related To: Limited/Poor Endurance, Shortness of Breath with Activity, Physical Impairments, Unsteady Gait/Balance, Fall Risk Patient is unable to leave the home: Without Aid of Supportive Devices (crutches , cane, wheelchair, walker), Without the assistance of another person - Additional Disciplines Additional Disciplines Needed/Ordered: Occupational Therapy
[2017-12-13 05:22] VITALS: BP 139/75; PULSE 64
[2017-12-13] MEDS: Metoprolol Tartrate 50 MG Tablet PO (05:22)
[2017-12-13] MEDS: Pantoprazole Sodium 20 MG Tablet PO (05:23)
[2017-12-13] MEDS: Triamcinolone 0.5% Cream 1 APPLIC TOPICAL (05:23)
[2017-12-13] MEDS: Clopidogrel Bisulfate 75 MG Tablet PO (05:23)
[2017-12-13] MEDS: Senna/Docusate Sodium 1 Tablet PO (05:23)
[2017-12-13] MEDS: Multivitamins,Therapeutic Tablet 1 TABLET PO (09:26)
[2017-12-13] MEDS: Calcium Carb/Vitamin D 1 TABLET Tablet PO (09:26)
[2017-12-13] MEDS: Enoxaparin 40 MG/0.4 ML Syringe SC (09:26)
--- NOTE | 2017-12-13 14:28 | CASEMGMT ---
Insurance Notified insurance of resident discharge on 12/13/17 per resident choice. Resident discharged home with family and home health services. Auth#[id number] Geovanna LEE, POSTDOCTORAL RESEARCH FELLOW
== END 2017-12-13 12:45 | disposition home health service (06) | DRG 57 ==
PROVIDERS: Admitting Provider Family Medicine Geriatric Medicine; Family Provider Student in an Organized Health Care Education/Training Program; PCP Student in an Organized Health Care Education/Training Program; Visit Provider Family Medicine Geriatric Medicine
DX: I69.898 Other sequelae of other cerebrovascular disease (principal); R42 Dizziness and giddiness; I10 Essential (primary) hypertension; K21.9 Gastro-esophageal reflux disease without esophagitis; E78.5 Hyperlipidemia, unspecified; Z23 Encounter for immunization
CPT/HCPCS: 36415; 80048; 85025; 97110; 97116; 97162; 97166; 97530; 97535; 97802; 90670

== ENCOUNTER → 2018-01-31 10:42 | Outpatient (CLI) | payer MEDICARE, SELFPAY ==
[2018-01-31 11:37] LABS: Anion Gap 8 (5-15); BUN 11 mg/dL (7-18); BUN/Creat Ratio 14.9 RATIO (10-20); Calcium,Total 8.9 mg/dL (8.5-10.1); Chloride 102 mmol/L (98-107); Creatinine, Serum 0.74 mg/dL (0.55-1.02); EST Glomerular Filtration Rate 80 mL/min (>60); Est Glom Filt Rate - Afr Amer 97 mL/min (>60); Glucose 115 mg/dL (74-106); Magnesium 2.2 mg/dL (1.6-2.6); Sodium Level 138 mmol/L (136-145)
== END ==
PROVIDERS: Family Provider Student in an Organized Health Care Education/Training Program; PCP Student in an Organized Health Care Education/Training Program; Visit Provider Internal Medicine Cardiovascular Disease
DX: I47.2 Ventricular tachycardia (principal)
CPT/HCPCS: 36415; 80048; 83735

== ENCOUNTER → 2018-02-14 06:39 | Outpatient (CLI) | payer MEDICARE, SELFPAY ==
--- NOTE | 2018-02-14 12:56 | STRESSREP ---
Stress Test Report Pharmacologic myocardial perfusion stress test. 82-year-old lady with a history of wide complex tachycardia. Medications metoprolol Plavix Multivite. Resting EKG demonstrates normal sinus rhythm with a rate of 71 bpm normal intervals and noted resting blood pressure 724/88 mmHg. 0.4 mg regadenoson was infused per usual protocol. Continuous EKG monitoring was performed. The maximum heart rate attained was 103 bpm which was 75% of maximum predicted heart rate the maximum workload was 1 metabolic equivalent. The patient maintained sinus rhythm throughout the recording at rest were no ST or T-wave changes noted suggest abnormal flow reserve at peak infusion no ST or T-wave changes were noted suggest abnormal flow reserve. The resting blood pressure is 124/88 with a final blood pressure 116/76. Myocardial perfusion protocol. 11.0 mCi of technetium 99m sestamibi was injected at rest. 0.4 mg regadenoson was infused per usual protocol peak infusion 31.4 mCi of technetium 99m sestamibi was injected stress images were obtained stress and rest images were reconstructed and compared in the short axis vertical long horizontal long axis. Gated images were also obtained Perfusion SPECT analysis: Review of the stress images demonstrate normal uptake of tracer noted in all areas of the myocardium. The resting images similarly demonstrate normal uptake of tracer noted in all areas of the myocardium. No areas of reversibility are noted suggest ischemia and no previous infarct is noted. Gated SPECT analysis: The gated ejection fraction is 79%. Conclusion: Normal pharmacologic myocardial perfusion stress test. Preserved ejection fraction.
== END ==
PROVIDERS: Family Provider Student in an Organized Health Care Education/Training Program; PCP Student in an Organized Health Care Education/Training Program; Visit Provider Internal Medicine Cardiovascular Disease
DX: I47.2 Ventricular tachycardia (principal); R94.31 Abnormal electrocardiogram [ECG] [EKG]; Z86.73 Personal history of transient ischemic attack (TIA), and cerebral infarction without residual deficits
CPT/HCPCS: 78452; 93017; A9500; A4216; J2785

== ENCOUNTER 2018-04-05 09:23 | Emergency (ER) | payer MEDICARE, SELFPAY ==
[2018-04-05 09:24] VITALS: BP 191/81; PULSE 68; RESP 20; TEMP 36.4; O2SAT 98; BMI 23.3
--- NOTE | 2018-04-05 09:44 | CT_ITS ---
STUDY: CT BRAIN WITHOUT CONTRAST REASON FOR EXAM: Female, 82 years old. Head injury due to a fall. No loss of consciousness. The patient is on Plavix. RADIATION DOSAGE (If Supplied By Facility): CTDIvol = ( 44.99 ) mGy, DLP = ( 745.49 ) mGycm TECHNIQUE: Transaxial CT imaging of the brain was performed without administration of intravenous contrast material. Individualized dose optimization techniques were used for this CT. COMPARISON: Comparison is made with prior study dated November 16, 2017. FINDINGS: Scalp hematoma overlying the left posterior parietal bone. Normal calvarium. There is mild cerebral atrophy with widening of the extra-axial spaces and ventricular dilatation. There are areas of decreased attenuation within the white matter tracts of the supratentorial brain, consistent with microvascular disease changes. Normal basal ganglia and thalami. Normal brainstem. Normal cerebellum. There is no intracranial hemorrhage. There are no findings of an acute ischemic infarction. Atherosclerotic calcification of the vertebral arteries and cavernous portions of the internal carotid arteries bilaterally. 1.1 cm polyp or retention cyst at the base of the left maxillary sinus. Partial opacification of the posterior aspect of the right ethmoid sinus. CT/Brain/Head without Contrast IMPRESSION: Chronic involutional changes of the brain. Scalp hematoma overlying the left posterior parietal bone. Electronically Signed: Carl Wynn MD at 10:45 EST Tel [phone], Service support ,
--- NOTE | 2018-04-05 10:25 | ED.DCSUM_ITS ---
- ER Visit Summary Date of Service: 04/05/18 Chief Complaint: Slipped and fell in bathroom striking her head on the wall. History of Present Illness: The patient is a 82 F currently on Plavix for prior TIAs. She is in the bathroom today and she stumbled fell backwards and struck her head on the wall. No LOC. No bleeding. Complaining of scalp pain but no severe headache. No neck pain. No other injuries. Physical Examination: Well appearing female. Vital signs are stable. She is afebrile. H EENT exam no facial trauma. She has a small hematoma back of her scalp. Laceration. Mildly tender. C-spine nontender. Normal range of motion. Lungs clear to auscultation bilaterally. Heart regular rhythm no murmur. Chest wall nontender. Abdomen soft nontender. Pelvic girdle intact. Patient is moving all 4 extremities. Nontender no deformities. Normal range of motion. Back nontender. Neurologically she is awake and alert. Answering questions. Following commands. No focal motor deficits. Normal steamer blocker strength. Normal dorsi plantarflexion. She knows day, month, year and where she is at. Normal speech. Test Results: Due to the patient having a head injury being on Plavix a CT of her brain was obtained. Shows no acute abnormality and no acute intracranial bleed. Read by the radiologist. Emergency Department Course and Treatment: Ice to her scalp. Treatment Plan: Tylenol for pain. Head injury instructions. Disposition: Discharge Impression: Acute fall with closed head injury with scalp hematoma Anticoagulated on Plavix This note was generated with [employer] dictation software. It may contain incorrect words, spelling, and punctuation that were not noted in review of the chart prior to signing ED Disposition - Plan for ED Patient: Chief Complaint: Fall Referrals: Aguila Beebe DO [Primary Care Provider] -
--- NOTE | 2018-04-05 10:25 | ED.DEP ---
ED Disposition - Plan for ED Patient: Disposition: Home or Assisted Living Chief Complaint: Fall Instructions: ED Head Injury Closed Referrals: Aguila Beebe DO [Primary Care Provider] - As Needed Additional Instructions: Ice to scalp. Tylenol for pain. Hold Plavix next dose. Then restart. Return if severe headache, intractable vomiting or not acting right.
== END 2018-04-05 11:00 | disposition home or self-care (01) ==
PROVIDERS: Emergency Provider Emergency Medicine; Family Provider Student in an Organized Health Care Education/Training Program; PCP Student in an Organized Health Care Education/Training Program
DX: S00.03XA Contusion of scalp, initial encounter (principal); W01.0XXA Fall on same level from slipping, tripping and stumbling without subsequent striking against object, initial encounter; Y93.9 Activity, unspecified; Z79.01 Long term (current) use of anticoagulants; Z79.899 Other long term (current) drug therapy; Z86.73 Personal history of transient ischemic attack (TIA), and cerebral infarction without residual deficits
CPT/HCPCS: 70450; 99282

== ENCOUNTER 2018-04-30 22:15 | Emergency (ER) | payer MEDICARE, SELFPAY ==
[2018-04-30 22:17] VITALS: BP 176/82; PULSE 70; RESP 16; TEMP 36.3; O2SAT 98; BMI 20.9
--- NOTE | 2018-04-30 22:32 | ED.VISSUMM ---
- ER Visit Summary Date of Service: 04/30/18 Chief Complaint: [] Blood pressure 170/80 no complaints related to blood pressure chronic leg pain History of Present Illness: The patient is a 82 F [] chronic hypertension her blood pressure runs anywhere from 120-140, she has chronic leg pain for which she takes Tylenol related to arthritis she reports today her blood pressure is running in the 120 range and then this evening 170/80 she has no head neck chest or abdominal pain shortness of breath numbness weakness or paresthesias, she has a prior history for stroke in the summer and the family was concerned and brought her to the hospital Per the family earlier she is complaining of quite a bit of exacerbation of her leg pain now she states it is better she is sitting in the bed stating she feels [place] at baseline she wants really no evaluation done she just wants something extra for her blood pressure Physical Examination: [] Vitals are as above she is in no distress General, no distress resting comfortably HEENT is generally unremarkable The neck is supple no adenopathy Cardiovascular, regular rate and rhythm Lungs, clear bilateral Abdomen, soft nontender Extremities, no clubbing cyanosis or edema Neurologic, awake alert answering questions appropriately moving all 4 extremities she has no complaints of any kind her NIH is 0 I had a long conversation with the patient her family there is nothing to suggest complication from the current elevation of her blood pressure we have explained the blood pressure can fluctuate during the day for the most part she reports in general her blood pressures in the 120 range I suggested we could do CT labs etc. EKG they declined all that stating she felt fine at baseline now, she was given clonidine 0.2 mg p.o., 650 of Tylenol for her chronic leg pain and she wants to go home to follow-up with her family doctors tomorrow and she will return for change in symptoms, she will have her blood pressure repeated via her outpatient providers tomorrow with further management as clinically warranted Test Results: [] Emergency Department Course and Treatment: [] declined ED workup Treatment Plan: [] Disposition: [] Home stable Impression: [] hypertension, history of prior stroke, history of chronic leg pain This note was generated with [employer] dictation software. It may contain incorrect words, spelling, and punctuation that were not noted in review of the chart prior to signing ED Disposition - Plan for ED Patient: Chief Complaint: Hypertension Referrals: Aguila Beebe DO [Primary Care Provider] -
--- NOTE | 2018-04-30 22:36 | ED.DEP ---
ED Disposition - Plan for ED Patient: Chief Complaint: Hypertension Instructions: ED HTN Established Referrals: Aguila Beebe DO [Primary Care Provider] -
[2018-04-30] MEDS: Acetaminophen 325 MG Tablet 650 MG PO (22:42)
[2018-04-30] MEDS: cloNIDine HCl 0.1 MG Tablet 0.2 MG PO (22:42)
--- NOTE | 2018-04-30 22:48 | ED.RN ---
DISCHARGE INSTRUCTIONS GIVEN TO AND REVIEWED WITH PATIENT, PATIENT DENIES QUESTIONS OR CONCERNS AND VOICES UNDERSTANDING OF DISCHARGE INSTRUCTIONS. PT AMBULATES OUT OF ROOM WITH ASSISTANCE OF FAMILY.
--- OUTSIDE RECORDS SUMMARY | 2018-06-17 03:40 | XMS RPT_ITS ---
:1935 Author Organization OHIP Support Name Relationship Address Phone JOSE LUIS MUNSONIE Unavailable Unavailable + [place] [address] R Unavailable Unavailable Unavailable GREEN, MONTY Unavailable Unavailable + [place] [address] R Unavailable Unavailable Unavailable GREEN, MONTY Unavailable Unavailable + [place] [address] R Unavailable Unavailable Unavailable GREEN, MONTY Unavailable Unavailable + [place] [address] R Unavailable Unavailable Unavailable GREEN, MONTY Unavailable Unavailable + [place] [address] R Unavailable Unavailable Unavailable Green, MONTY Unavailable Unavailable + [place] [address] R Unavailable Unavailable Unavailable Green, Skye Unavailable Unavailable + [place] [address] R Unavailable Unavailable Unavailable GREEN, MONTY Unavailable Unavailable + [place] [address] R Unavailable Unavailable Unavailable PATHAK, AJ Unavailable [address] + [place] [address] R Unavailable Unavailable Unavailable GREEN, MONTY Unavailable Unavailable + [place] [address] R Unavailable Unavailable Unavailable PATHAK, AJ Unavailable [address] + [place] [address] R Unavailable Unavailable Unavailable PATHAK, AJ Unavailable [address] + [place] [address] R Unavailable Unavailable Unavailable PATHAK, AJ Unavailable [address] + [place] [address] R Unavailable Unavailable Unavailable PATHAK, AJ Unavailable [address] + [place] [address] R Unavailable Unavailable Unavailable GREEN, MONTY Unavailable Unavailable + [place] [address] R Unavailable Unavailable Unavailable PATHAK, AJ Unavailable [address] + [place] [address] R Unavailable Unavailable Unavailable PATHAK, AJ Unavailable [address] + [place] [address] R Unavailable Unavailable Unavailable Skye Munson Unavailable Unavailable + [place] [address] R Unavailable Unavailable Unavailable PATHAK, AJ Unavailable [address] + [place] [address] R Unavailable Unavailable Unavailable Care Team Providers Name Role Phone BEEBE, AGUILA L Referring Unavailable BEEBE, AGUILA L Attending Unavailable BEEBE, AGUILA L Referring Unavailable CORNIELLO, MARY L ([facility]) Attending Unavailable CORNIELLO, MARY L ([facility]) Attending Unavailable BEEBE, AGUILA L Referring Unavailable CORNIELLO, MARY L ([facility]) Referring Unavailable CORNIELLO, MARY L ([facility]) Referring Unavailable CORNIELLO, MARY L ([facility]) Attending Unavailable BEEBE, AGUILA L Referring Unavailable BEEBE, AGUILA L Attending Unavailable BEEBE, AGUILA L Referring Unavailable BEEBE, AGUILA L Referring Unavailable CORNIELLO, MARY L ([facility]) Attending Unavailable BEEBE, AGUILA L Attending Unavailable BEEBE, AGUILA L Referring Unavailable BEEBE, AGUILA L Referring Unavailable Beebe, Aguila Primary Care Unavailable Spencer Russell Attending Unavailable Beebe, Aguila Primary Care Unavailable Anna Fernandez Attending Unavailable Kamlesh, [place] Attending Unavailable Beebe, Aguila Primary Care Unavailable Philippe Chiang Attending Unavailable Kamlesh, [place] Attending Unavailable Kamlesh, [place] Referring Unavailable Kamlesh, [place] Attending Unavailable Kamlesh, [place] Referring Unavailable Beebe, Aguila Primary Care Unavailable Kamlesh, [place] Attending Unavailable Kamlesh, [place] Referring Unavailable Beebe, Aguila Primary Care Unavailable Kamlesh, Juwan Attending Unavailable Beebe, Aguila Referring Unavailable Beebe, Aguila Primary Care Unavailable Leanne Mcleod Attending Unavailable Lance, Clint Chi Admitting Unavailable Lance, Clint Chi Attending Unavailable Lance, Clint Chi Referring Unavailable Beebe, Aguila Primary Care Unavailable [place], [place] Attending Unavailable Beebe, Aguila Primary Care Unavailable G[place], [place] Admitting Unavailable [place], [place] Attending Unavailable Beebe, Aguila Primary Care Unavailable Sudeep Sterling Consulting Unavailable [place], [place] Consulting Unavailable [place], [place] Admitting Unavailable [place], [place] Attending Unavailable Beebe, Aguila Primary Care Unavailable Hallie, Sudeep Consulting Unavailable [place], [place] Consulting Unavailable [place], [place] Admitting Unavailable [place], [place] Attending Unavailable Beebe, Aguila Primary Care Unavailable Sterling, Sudeep Consulting Unavailable [place], [place] Consulting Unavailable [place], [place] Admitting Unavailable [place], [place] Attending Unavailable Beebe, Aguila Primary Care Unavailable Sterling, Sudeep Consulting Unavailable [place], [place] Consulting Unavailable [place]bar[place], [place] Admitting Unavailable [place], [place] Attending Unavailable Beebe, Aguila Primary Care Unavailable [place], [place] Consulting Unavailable Beebe, Aguila Primary Care Unavailable [place], [place] Admitting Unavailable [place], [place] Attending Unavailable Jag Rodriguez. Consulting Unavailable [place], [place] Admitting Unavailable [place], [place] Attending Unavailable Beebe, Aguila Primary Care Unavailable Hallie, Sudeep Consulting Unavailable [place], [place] Consulting Unavailable Kamlesh, Juwan Attending Unavailable [place], [place] Referring Unavailable PROBLEMS PROBLEMS DATE TYPE CONDITION / CODE ATTENDING STATUS SOURCE 06/01/2018 Active Encounter for NA Active [facility] screening [facility] [place] mammogram for Repository malignant neoplasm of breast / Z12.31(ICD-10) 05/14/2018 Active Hypothyroidism, NA Active [facility] unspecified / [place] E03.9(ICD-10) Repository 05/14/2018 Active Vitamin D NA Active [facility] deficiency, [place] unspecified / Repository E55.9(ICD-10) 05/14/2018 Active Other fatigue / NA Active [facility] R53.83(ICD-10) [place] Repository 05/04/2018 Unknown S09.90XA - Philippe Chiang Active [place] Unspecified injury Community of head, initial Hospital encounter / Repository S09.90XA(ICD-10) 03/21/2018 Active Cough / NA Active [facility] R05(ICD-10) [place] Repository 01/31/2018 Unknown I47.2 - Kamlesh, [place] Active [place] Ventricular [facility] tachycardia / Hospital I47.2(ICD-10) Repository 01/31/2018 Unknown I10 - Essential Kamlesh, [place] Active [place] (primary) Community hypertension / Hospital I10(ICD-10) Repository 10/18/2017 Active Hypokalemia / NA Active [facility] E87.6(ICD-10) [place] Repository 04/21/2005 Active Essential NA Active [facility] (primary) [facility] hypertension / Repository I10(ICD-10) 12/21/2017 Active Pain in right leg NA Active [facility] / M79.604(ICD-10) [place] Repository 05/01/2018 Unknown 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, 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 / Repository I69.398(ICD-10) 02/13/2018 Unknown R42 - Dizziness Kamlesh, [place] Active [facility] and giddiness / Community R42(ICD-10) Hospital Repository 02/21/2018 Unknown I63.9 - Cerebral [place], [place] Active [place] infarction, Community unspecified / Hospital I63.9(ICD-10) Repository 10/10/2016 Active Pure NA Active [facility] hypercholesterolem [facility] ia, unspecified / Repository E78.00(ICD-10) PROCEDURES PROCEDURES No Procedure Records FoundRESULTS RESULTS CNPN Observed: 06/04/2018 Status: COMPLETED Source: [place] 12:00 AM [facility] REPOSITORY Telephone (FAMPWS) DENAE PATHAK ([id number]) 1935 F Date Time Provider Department 06/04/18 AGUILA BEEBE FAMWS During your visit today, we recorded the following information about you: Aguila Beebe DO 06/04/2018 8:33 AM Signed Please inform patient that her mammogram shows ? Abnormalities based on screening on left breast, would recommend diagnostic mammogram and US breast for further evaluation DO Yomaira Anne LPN 06/04/2018 11:56 AM Signed Pt notified, call transferred to scheduling to arrange appt. Cindy Castaneda Psr 06/07/2018 3:20 PM Signed Diagnostic mammogram scheduled. Cindy Hernandez Leonel Psr Allergies As of Date: 06/04/2018 Noted Allergy Reaction ASA (SALICYLATES) 04/21/2005 4 - Hives BACTRIM (SULFAMETHOXAZOLE) 07/30/2012 2 - Rash TETANUS VACCINES AND TOXOID 04/21/2005 7 - Swelling Date Reviewed: 05/14/2018 Reviewed by: Maricruz Pena LPN - Fully Assessed Reason for Visit: Results [95] Cmt: mammogram Primary Visit Diagnosis:Abnormal screening mammogram [R92.8] Order(s):[facility] DIAGNOSTIC LT [[id number]] Order #: [id number] FUTURE BREAST LTD LT [[id number]] Order #: [id number] FUTURE Prescriptions as of 06/04/2018 Sig: LORAZEPAM 0.5 MG TABLET Take 1 tablet by mouth once d* METOPROLOL TARTRATE 50 MG TAB* Take 1 tablet by mouth twice * TRIAMCINOLONE ACETONIDE 0.5 %* Apply 1 application to affect* ATORVASTATIN 40 MG TABLET Take 1 tablet by mouth daily * CLOPIDOGREL 75 MG TABLET Take 1 tablet by mouth once d* ACETAMINOPHEN 500 MG TABLET Take 2 tablets by mouth every* OMEPRAZOLE MAGNESIUM 20 MG TA* Take 1 tablet by mouth once d* CALCIUM CARBONATE 600 MG (1,5* Take 1 tablet by mouth twice * GLUCOSAMINE CHONDROITIN MAXIM* Take one(1) tablet two(2) nahomy* THERAPEUTIC MULTIVITAMIN TABL* Take one(1) tablet daily. FISH OIL 500 MG CAPSULE Take one(1) tablet two(2) nahomy* FLAXSEED OIL 1,000 MG CAPSULE Take one(1) tablet daily. Problem List As Of Date 06/04/2018 Noted Resolved BENIGN HYPERTENSION [I10] Hyperlipidemia [E78.5] Scoliosis (and kyphoscoliosis), idiopathic [M41* Disorder of bone and cartilage [M89.9, M94.9] INVALID FOR* OSTEOARTHROS NOS-UNSPEC [M19.90] INVALID FOR* DIVERTICULOSIS OF COLON W/O BLEED [K57.30] INT HEMORRHOID W/O COMPL [K64.8] NONSPECIF SKIN ERUPT NEC [R21] INVALID FOR* ESOPHAGEAL REFLUX [K21.9] INVALID FOR* Rhinitis, chronic [J31.0] INVALID FOR* Counseling and coordination of care [Z71.89] INVALID FOR*12/24/2014 More... 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*INVALID FOR* Balance disorder [R26.89] INVALID FOR* Cerebrovascular accident (CVA) (HCC) [I63.9] INVALID FOR* Dermatitis [L30.9] INVALID FOR* Cough [R05] INVALID FOR* Hypertension, essential [I10] INVALID FOR* Hair thinning [L65.9] INVALID FOR* Situational anxiety [F41.8] INVALID FOR* Fatigue [R53.83] INVALID FOR* Vitamin D deficiency [E55.9] INVALID FOR* Subclinical hypothyroidism [E03.9] INVALID FOR* Encounter Status:Closed by YOMAIRA DEVLIN LPN on 06/04/18 CNCO Observed: 06/01/2018 Status: COMPLETED Source: [place] 3:15 PM [facility] REPOSITORY [facility] ID: [id number] Author: Mammography Coordinator Service: (none) Author Type: Physician Type: Letter Filed: 06/04/2018 11:32 PM Note Text: June 01, 2018 PID: [id number] Denae Pathak [address] [facility] [address] [place] [address] Dear Ms. Pathak, Your recent breast imaging exam on 06/01/2018 showed a possible finding that requires additional imaging studies for a complete evaluation. Most such findings are probably benign (not cancer). Please call [phone] or [phone]: [phone] to schedule an appointment for your additional imaging if you have not already done so. Your mammogram demonstrates that you have dense breast tissue, which could hide abnormalities. Dense breast tissue, in and of itself, is a relatively common condition. Therefore, this information is not provided to cause undue concern; rather, it is to raise your awareness and promote discussion with your health care provider regarding the presence of dense breast tissue in addition to other risk factors. Your breast images and report will be kept on file here as part of your permanent medical record and are available for your continuing care. Thank you for allowing us to help in meeting your health care needs. Sincerely, Dr. Avila Interpreting Radiologist [facility] (Additional imaging) [facility] SCREENING Observed: 06/01/2018 Status: F Source: [place] 1:52 PM [facility] REPOSITORY * * *Final Report* * * DATE OF EXAM: Jun 01 2018 1:52PM WRW [id number] - [facility] SCREENING / PROCEDURE REASON: Screening for breast cancer * * * * Physician Interpretation * * * * RESULT: #[id number] - [facility] SCREENING BILATERAL DIGITAL SCREENING MAMMOGRAM WITH CAD: 06/01/2018 HISTORY: Screening For Breast Cancer /SEE TECH NOTE\ Screening Mammogram - patient reports NO breast symptoms /priors available for comparison. RESULT: TECHNIQUE: The study was acquired using full field digital technology and interpreted from soft copy. Current study was also evaluated with a Computer Aided Detection (CAD). Comparison is made to exams dated: 05/08/2017 mammogram, 04/22/2016 mammogram, 04/03/2015 mammogram, and 02/27/2014 mammogram - [facility]. The tissue of both breasts is heterogeneously dense. This may lower the sensitivity of mammography. There is possible architectural distortion in the left breast central to the nipple seen on the craniocaudal view only. No other significant masses, calcifications, or other findings are seen in either breast. IMPRESSION: INCOMPLETE: NEEDS ADDITIONAL IMAGING EVALUATION The possible architectural distortion in the left breast is indeterminate. Additional views are recommended. Heriberto Avila M.D. fa/penrad:06/01/2018 15:15:57 Brewery Worker(s): RT Paras(R)(M), [facility] letter sent: Additional Imaging Needed Mammogram BI-RADS: 0 Incomplete: needs additional imaging evaluation If this report indicates you need additional imaging, and it has NOT yet been performed, please call , to schedule. We sincerely thank you for choosing the [facility] for your breast imaging needs. Multiple national specialty organizations have released breast cancer screening guidelines for women at average risk for developing breast cancer - guidelines that are based on both evidence and opinion, yet differ on when to start and how often to screen for breast cancer. With representation from Breast Imaging, Internal Medicine, Women's Health, Family Medicine, and Medical/Surgical Oncology, the [facility] has carefully reviewed the data and reached the following consensus: 1) All women should engage in shared decision-making with their providers to decide when to start and how often to screen; 2) All women should have the opportunity to start screening mammography at age 40; 3) For women ages 45-55, we recommend annual screening mammograms; 4) For women ages 55 and over, we support both the transition from an annual to a biennial interval if this aligns more with patient's values and preferences, or continuation with annual screening; 5) All women should discuss with their providers when to stop screening mammograms. Paraeducator: Mitzi Transcribe Date/Time: Jun 01 2018 1:53P Dictated by: HERIBERTO AVILA MD This examination was interpreted and the report reviewed and electronically signed by: HERIBERTO AVILA MD on Jun 01 2018 3:15PM EST [id number] VITAMIN B12 Collected: 05/16/2018 Status: F Source: [place] 9:15 AM [facility] REPOSITORY TYPE CODE TESTS RESULT OUT OF REFERENCE UNITS RANGE LAB B12 232-1245 pg/mL Vitamin B12 501 Performed By: #### B12, TSH, FREET3, FT4, VITD #### [facility] [address] [address] TSH Collected: 05/16/2018 Status: F Source: [place] 9:15 AM [facility] REPOSITORY TYPE CODE TESTS RESULT OUT OF RANGE REFERENCE UNITS LAB TSH 0.400-5.500 uU/mL TSH 4.650 Performed By: #### B12, TSH, FREET3, FT4, VITD #### [facility] [address] [place] [address] FREE T3 Collected: 05/16/2018 Status: F Source: [place] 9:15 AM [facility] REPOSITORY TYPE CODE TESTS RESULT OUT OF RANGE REFERENCE UNITS LAB FREET3 2.3-4.1 pg/mL Free T3 3.1 Performed By: #### B12, TSH, FREET3, FT4, VITD #### [facility] [address] [place] [address] FREE T4 Collected: 05/16/2018 Status: F Source: [place] 9:15 AM [facility] REPOSITORY TYPE CODE TESTS RESULT OUT OF RANGE REFERENCE UNITS LAB FT4 0.9-1.7 ng/dL Free T4 1.3 Performed By: #### B12, TSH, FREET3, FT4, VITD #### [facility] [address] [employer] [place], [place] [address] VITAMIN D 25 HYDROXY Collected: 05/16/2018 Status: F Source: [place] 9:15 AM [facility] REPOSITORY TYPE CODE TESTS RESULT OUT OF REFERENCE UNITS RANGE LAB VITD 31.0-80.0 ng/mL Vitamin D 25 64.5 Hydroxy Result Comment: Classification of 25 [place] Vitamin D status: Insufficiency/Moderate Deficiency: < or = 30 ng/mL Sufficiency/Optimal Levels: 31 to 80 ng/mL Toxicity: > 100 ng/mL Test performed by chemiluminescent immunoassay. Performed By: #### B12, TSH, FREET3, FT4, VITD #### [facility] [address] [place], [place] [address] PROGRESS Observed: 05/14/2018 Status: COMPLETED Source: [place] 10:04 AM [facility] REPOSITORY [facility] ID: [id number] Author: Aguila Beebe Service: (none) Author Type: Physician Type: Progress Notes Filed: 05/14/2018 1:15 PM Note Text: CC: Denae Pathak is a 82 year old female who presents to the office for follow up HPI: HTN, somewhat elevated recently but seems to be improving, has been checking once a day, readings 110-150s/70-80s, no CP or dyspnea or palpitations or dizziness/LH Anxiety, increased recently after of her , is living in an assisted living setting, does enjoy watching the birds in the feeders outside. Feels overwhelmed at times though regarding stressors with family members etc. Was given Ativan at EMERGENCY DEPARTMENT with some benefit in the recent past. Denies depression although is weepy a little with missing her - holidays without him present at home. Insomnia, thinks related to loss of her , sometimes difficulty with falling asleep and staying asleep PAST MEDICAL HISTORY Diagnosis Date - Acute cholecystitis 05/14/14 - Cholelithiasis 05/14/14 - Diverticulosis of colon (without mention of hemorrhage) - Essential hypertension, benign - GERD (gastroesophageal reflux disease) - Internal hemorrhoids without mention of complication - Other and unspecified hyperlipidemia - Other kyphoscoliosis and scoliosis - Post-operative nausea and vomiting 04/2014 - Symptomatic menopausal or female climacteric states MENOPAUSE PAST SURGICAL HISTORY Procedure Laterality Date - COLONOSCOP W/ OR W/O BRSH SPEC 06/28/05 - LAPAROSCOPIC CHOLEYCYSTECTOMY 05/14/14 ANESTHESIA difficulty due to severe post o N/V - NONE Current Outpatient Prescriptions: acetaminophen (TYLENOL EXTRA STRENGTH) 500 mg tablet Take 2 tablets by mouth every 8 hours as needed for Pain. atorvastatin (LIPITOR) 40 mg tablet Take 1 tablet by mouth daily at bedtime. For cholesterol. calcium carbonate 600 mg-cholecalciferol 400 units (CALTRATE- 600 PLUS VITAMIN D3) 600 mg(1,500mg) -400 unit ORAL Tab Take 1 tablet by mouth twice daily. clopidogrel (PLAVIX) 75 mg tablet Take 1 tablet by mouth once daily. FISH OIL CAP Take one(1) tablet two(2) times daily. FLAXSEED OIL 1,000 MG CAP Take one(1) tablet daily. gluc fritz/chondro fritz a/vit c/mn(GLUCOSAMINE CHONDROITIN MAXIMUM STRENGTH 500 MG-400 MG CAP) Take one(1) tablet two(2) times daily. metoprolol tartrate, short acting, (LOPRESSOR) 50 mg tablet Take 1 tablet by mouth twice daily. Omeprazole Magnesium (PRILOSEC OTC) 20 mg tablet Take 1 tablet by mouth once daily. 1/2 hr before meal. THERAPEUTIC MULTIVITAMIN TAB Take one(1) tablet daily. triamcinolone acetonide (KENALOG) 0.5 % cream Apply 1 application to affected area twice daily. For rash/itching. Apply sparingly. Avoid face/skin fold. LORazepam (ATIVAN) 0.5 mg tab Take 1 tablet by mouth once daily as needed (anxiety attack) for up to 30 days. No current facility-administered medications for this visit. ALLERGIES Allergen Reactions - Asa [Salicylates] Hives - Bactrim [Sulfametho* Rash - Tetanus Vaccines An* Swelling Social History Marital status: Spouse name: Aj Years of education: Number of children: 1 Occupational History Occupation Employer Comment retired Social History Main Topics Smoking status: Never Smoker Smokeless tobacco: Never Used Alcohol use: No Drug use: No ROS: See HPI PE: BP 134/80 Pulse 60 Temp (Src) 97.6 (Left Tympanic) Resp 20 Wt 125 lb (56.7kg) Gen: AANDOX3, NAD, non-toxic appearing, hard of hearing HEENT: PERRLA, EOMs intact b/l, nares without drainage, pharynx without erythema, exudate, lesions, or drainage. Uvula midline. Hair thinning posterior area of scalp Neck: No LAD, no thyromegaly, no meningismus. CV: RRR,2/6 HSM RUSB murmur, normal s1s2 Lungs: CTA b/l, no wheezing Skin: No rashes, lesions, or wounds on exposed skin. Tearful, no edema, well dressed, Normal pulses ASSESSMENT/PLAN: 1. Hypertension, essential - ICD9: 401.9, ICD10: I10 (primary diagnosis) - suboptimal control - Encouraged dietary sodium restriction/DASH diet - Recommended regular aerobic exercise. - Recommend home blood pressure monitoring, to bring results in on next visit - If still >150s in 1-2 weeks with stress better controlled, then will need to add on lisinopril 5 mg a day - Goal of BP <130/80 2. Subclinical hypothyroidism - ICD9: 244.8, ICD10: E03.9 - Hx of, recheck labs as ordered. - TSH BLD - T4 FREE/FREE THYROX - T3 FREE BLD 3. Vitamin D deficiency - ICD9: 268.9, ICD10: E55.9 - recheck level today - VITAMIN D 25 HYDROXY 4. Fatigue, unspecified type - ICD9: 780.79, ICD10: R53.83 - labs as ordered - VITAMIN B12 BLOOD 5. Situational anxiety - ICD9: 300.09, ICD10: F41.8 - rx prn, consider adding on Zoloft at bedtime if still having difficulty falling/staying asleep or feeling anxious after holidays. - LORAZEPAM 0.5 MG TABLET 6. Hair thinning - ICD9: 704.00, ICD10: L65.9 - recheck thyroid labs. Aguila Beebe DO Return if no improvement. Follow up with Aguila Beebe DO. Discussed risks, benefits, alternatives, and potential side effects of medications. Patient/Guardian expressed understanding and agreed with the plan. See patient instructions. Aguila Beebe DO [address] [place] [address] FREDO Observed: 05/14/2018 Status: COMPLETED Source: [place] 8:20 AM [facility] REPOSITORY Office Visit (FAMPWS) DENAE PATHAK ([id number]) 1935 F Date Time Provider Department 05/14/18 8:20 AM [facility] your visit today, we recorded the following information about you: Temperature Pulse Respiration Blood pressure 97.6 degrees 60/minute 20/minute 134/80 Weight 56.7 kg Aguila Beebe DO 05/14/2018 8:56 AM Signed Lorazepam once a day as needed for panic attack Melatonin 1 mg at supper or bedtime for trouble sleeping, increase dose to 3 mg if the 1 mg isn't working. If the 3 mg isn't effective, then ok to increase dose of Melatonin to 5 mg. If BLOOD PRESSURE remains >150s top number in 1-2 weeks, then I will add on Lisinopril 5 mg a day Aguila Beebe DO 05/14/2018 1:15 PM Signed CC: Denae Pathak is a 82 year old female who presents to the office for follow up HPI: HTN, somewhat elevated recently but seems to be improving, has been checking once a day, readings 110-150s/70-80s, no CP or dyspnea or palpitations or dizziness/LH Anxiety, increased recently after of her , is living in an assisted living setting, does enjoy watching the birds in the feeders outside. Feels overwhelmed at times though regarding stressors with family members etc. Was given Ativan at EMERGENCY DEPARTMENT with some benefit in the recent past. Denies depression although is weepy a little with missing her - holidays without him present at home. Insomnia, thinks related to loss of her , sometimes difficulty with falling asleep and staying asleep PAST MEDICAL HISTORY Diagnosis Date - Acute cholecystitis 05/14/14 - Cholelithiasis 05/14/14 - Diverticulosis of colon (without mention of hemorrhage) - Essential hypertension, benign - GERD (gastroesophageal reflux disease) - Internal hemorrhoids without mention of complication - Other and unspecified hyperlipidemia - Other kyphoscoliosis and scoliosis - Post-operative nausea and vomiting 04/2014 - Symptomatic menopausal or female climacteric states MENOPAUSE PAST SURGICAL HISTORY Procedure Laterality Date - COLONOSCOP W/ OR W/O [facility] SPEC 06/28/05 - LAPAROSCOPIC CHOLEYCYSTECTOMY 05/14/14 ANESTHESIA difficulty due to severe post o N/V - NONE Current Outpatient Prescriptions: acetaminophen (TYLENOL EXTRA STRENGTH) 500 mg tablet Take 2 tablets by mouth every 8 hours as needed for Pain. atorvastatin (LIPITOR) 40 mg tablet Take 1 tablet by mouth daily at bedtime. For cholesterol. calcium carbonate 600 mg-cholecalciferol 400 units (CALTRATE- 600 PLUS VITAMIN D3) 600 mg(1,500mg) -400 unit ORAL Tab Take 1 tablet by mouth twice daily. clopidogrel (PLAVIX) 75 mg tablet Take 1 tablet by mouth once daily. FISH OIL CAP Take one(1) tablet two(2) times daily. FLAXSEED OIL 1,000 MG CAP Take one(1) tablet daily. gluc fritz/chondro fritz a/vit c/mn(GLUCOSAMINE CHONDROITIN MAXIMUM STRENGTH 500 MG-400 MG CAP) Take one(1) tablet two(2) times daily. metoprolol tartrate, short acting, (LOPRESSOR) 50 mg tablet Take 1 tablet by mouth twice daily. Omeprazole Magnesium (PRILOSEC OTC) 20 mg tablet Take 1 tablet by mouth once daily. 1/2 hr before meal. THERAPEUTIC MULTIVITAMIN TAB Take one(1) tablet daily. triamcinolone acetonide (KENALOG) 0.5 % cream Apply 1 application to affected area twice daily. For rash/itching. Apply sparingly. Avoid face/skin fold. LORazepam (ATIVAN) 0.5 mg tab Take 1 tablet by mouth once daily as needed (anxiety attack) for up to 30 days. No current facility-administered medications for this visit. ALLERGIES Allergen Reactions - Asa [Salicylates] Hives - Bactrim [Sulfametho* Rash - Tetanus Vaccines An* Swelling Social History Marital status: Spouse name: Aj Years of education: Number of children: 1 Occupational History Occupation Employer Comment retired Social History Main Topics Smoking status: Never Smoker Smokeless tobacco: Never Used Alcohol use: No Drug use: No ROS: See HPI PE: BP 134/80 Pulse 60 Temp (Src) 97.6 (Left Tympanic) Resp 20 Wt 125 lb (56.7kg) Gen: AANDOX3, NAD, non-toxic appearing, hard of hearing HEENT: PERRLA, EOMs intact b/l, nares without drainage, pharynx without erythema, exudate, lesions, or drainage. Uvula midline. Hair thinning posterior area of scalp Neck: No LAD, no thyromegaly, no meningismus. CV: RRR,2/6 HSM RUSB murmur, normal s1s2 Lungs: CTA b/l, no wheezing Skin: No rashes, lesions, or wounds on exposed skin. Tearful, no edema, well dressed, Normal pulses ASSESSMENT/PLAN: 1. Hypertension, essential - ICD9: 401.9, ICD10: I10 (primary diagnosis) - suboptimal control - Encouraged dietary sodium restriction/DASH diet - Recommended regular aerobic exercise. - Recommend home blood pressure monitoring, to bring results in on next visit - If still >150s in 1-2 weeks with stress better controlled, then will need to add on lisinopril 5 mg a day - Goal of BP <130/80 2. Subclinical hypothyroidism - ICD9: 244.8, ICD10: E03.9 - Hx of, recheck labs as ordered. - TSH BLD - T4 FREE/FREE THYROX - T3 FREE BLD 3. Vitamin D deficiency - ICD9: 268.9, ICD10: E55.9 - recheck level today - VITAMIN D 25 HYDROXY 4. Fatigue, unspecified type - ICD9: 780.79, ICD10: R53.83 - labs as ordered - VITAMIN B12 BLOOD 5. Situational anxiety - ICD9: 300.09, ICD10: F41.8 - rx prn, consider adding on Zoloft at bedtime if still having difficulty falling/staying asleep or feeling anxious after holidays. - LORAZEPAM 0.5 MG TABLET 6. Hair thinning - ICD9: 704.00, ICD10: L65.9 - recheck thyroid labs. Aguila Beebe DO Return if no improvement. Follow up with Aguila Beebe DO. Discussed risks, benefits, alternatives, and potential side effects of medications. Patient/Guardian expressed understanding and agreed with the plan. See patient instructions. Aguila Beebe DO [address] [place] [address] Referring Provider: SELF [200] Allergies As of Date: 05/14/2018 Noted Allergy Reaction ASA (SALICYLATES) 04/21/2005 4 - Hives BACTRIM (SULFAMETHOXAZOLE) 07/30/2012 2 - Rash TETANUS VACCINES AND TOXOID 04/21/2005 7 - Swelling Date Reviewed: 05/14/2018 Reviewed by: Maricruz Pena LPN - Fully Assessed Reason for Visit: Follow Up [171] Cmt: ER fall Primary Visit Diagnosis:Hypertension, essential [I10] Other Visit Diagnoses:Subclinical hypothyroidism [E03.9] Vitamin D deficiency [E55.9] Fatigue, unspecified type [R53.83] Situational anxiety [F41.8] Hair thinning [L65.9] Screening for breast cancer [Z12.31] Order(s):TSH BLD [SQTSH] Order #: [id number] FUTURE T4 FREE/FREE THYROX [SQFT4] Order #: [id number] FUTURE T3 FREE BLD [SQFREET3] Order #: [id number] FUTURE VITAMIN D 25 HYDROXY [SQVITD] Order #: [id number] FUTURE VITAMIN B12 BLOOD [SQB12] Order #: [id number] FUTURE LORazepam (ATIVAN) 0.5 mg tabTake 1 tablet by mouth once daily as needed (anxiety attack) for up to 30 days.Disp: 30 tabletRfl: 1 DONATO SCREENING [[id number]] Order #: [id number] FUTURE Prescriptions as of 05/14/2018 Sig: ACETAMINOPHEN 500 MG TABLET Take 2 tablets by mouth every* ATORVASTATIN 40 MG TABLET Take 1 tablet by mouth daily * CALCIUM CARBONATE 600 MG (1,5* Take 1 tablet by mouth twice * CLOPIDOGREL 75 MG TABLET Take 1 tablet by mouth once d* FISH OIL 500 MG CAPSULE Take one(1) tablet two(2) nahomy* FLAXSEED OIL 1,000 MG CAPSULE Take one(1) tablet daily. GLUCOSAMINE CHONDROITIN MAXIM* Take one(1) tablet two(2) nahomy* METOPROLOL TARTRATE 50 MG TAB* Take 1 tablet by mouth twice * OMEPRAZOLE MAGNESIUM 20 MG TA* Take 1 tablet by mouth once d* THERAPEUTIC MULTIVITAMIN TABL* Take one(1) tablet daily. TRIAMCINOLONE ACETONIDE 0.5 %* Apply 1 application to affect* LORAZEPAM 0.5 MG TABLET Take 1 tablet by mouth once d* Problem List As Of Date 05/14/2018 Noted Resolved BENIGN HYPERTENSION [I10] Hyperlipidemia [E78.5] Scoliosis (and kyphoscoliosis), idiopathic [M41* Disorder of bone and cartilage [M89.9, M94.9] INVALID FOR* OSTEOARTHROS NOS-UNSPEC [M19.90] INVALID FOR* DIVERTICULOSIS OF COLON W/O BLEED [K57.30] INT HEMORRHOID W/O COMPL [K64.8] NONSPECIF SKIN ERUPT NEC [R21] INVALID FOR* ESOPHAGEAL REFLUX [K21.9] INVALID FOR* Rhinitis, chronic [J31.0] INVALID FOR* Counseling and coordination of care [Z71.89] INVALID FOR*12/24/2014 More... 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*INVALID FOR* Balance disorder [R26.89] INVALID FOR* Cerebrovascular accident (CVA) (HCC) [I63.9] INVALID FOR* Dermatitis [L30.9] INVALID FOR* Cough [R05] INVALID FOR* Hypertension, essential [I10] INVALID FOR* Hair thinning [L65.9] INVALID FOR* Situational anxiety [F41.8] INVALID FOR* Fatigue [R53.83] INVALID FOR* Vitamin D deficiency [E55.9] INVALID FOR* Subclinical hypothyroidism [E03.9] INVALID FOR* Other instructions from your clinician: Lorazepam once a day as needed for panic attack Melatonin 1 mg at supper or bedtime for trouble sleeping, increase dose to 3 mg if the 1 mg isn't working. If the 3 mg isn't effective, then ok to increase dose of Melatonin to 5 mg. If BLOOD PRESSURE remains >150s top number in 1-2 weeks, then I will add on Lisinopril 5 mg a day Prescriptions ordered this encounter Disp Refills Start End LORAZEPAM 0.5 MG TABLET 30 t* 1 05/14/2018 06/13/2018 Class: Print RX Route: ORAL Sig: Take 1 tablet by mouth once daily as needed (anxiety attack) for up to 30 days. Encounter Status:Closed by AGUILA BEEBE DO on 05/14/18 PROGRESS Observed: 05/02/2018 Status: COMPLETED Source: [place] 10:26 AM [facility] REPOSITORY HNO ID: [id number] Author: Mary Garduno (Calendering Machine Operator) Kay Service: (none) Author Type: Nurse Practitioner Type: Progress Notes Filed: 05/02/2018 10:50 AM Note Text: HPI/CC: Denae Pathak is a 82 year old female who presents to the office today for [facility] ER follow-up for elevated BP. BP at home was 179/109. Patient denies CP, SOB, dizziness, lightheadedness, headache, edema. Since DC from ER BP has been normal. States that she is feeling more stressed with the holidays and not having her (recently past). Recent fall- seeing PCP next week for this. Testing completed at the facility: none Labwork completed at the facility: none REVIEW OF SYSTEMS as above HISTORIES: PAST MEDICAL HISTORY Diagnosis Date - Acute cholecystitis 05/14/14 - Cholelithiasis 05/14/14 - Diverticulosis of colon (without mention of hemorrhage) - Essential hypertension, benign - GERD (gastroesophageal reflux disease) - Internal hemorrhoids without mention of complication - Other and unspecified hyperlipidemia - Other kyphoscoliosis and scoliosis - Post-operative nausea and vomiting 04/2014 - Symptomatic menopausal or female climacteric states MENOPAUSE PAST SURGICAL HISTORY Procedure Laterality Date - COLONOSCOP W/ OR W/O [facility] SPEC 06/28/05 - LAPAROSCOPIC CHOLEYCYSTECTOMY 05/14/14 ANESTHESIA difficulty due to severe post o N/V - NONE FAMILY HISTORY Problem Relation Age of Onset - Cervical Cancer Mother - Heart Mother - Heart Father growth in colon ,removed 12 of colon benign Social History Marital status: Spouse name: Aj Years of education: Number of children: 1 Occupational History Occupation Employer Comment retired Social History Main Topics Smoking status: Never Smoker Smokeless tobacco: Never Used Alcohol use: No Drug use: No Current Outpatient Prescriptions on File Prior to Visit: acetaminophen (TYLENOL EXTRA STRENGTH) 500 mg tablet Take 2 tablets by mouth every 8 hours as needed for Pain. atorvastatin (LIPITOR) 40 mg tablet Take 1 tablet by mouth daily at bedtime. For cholesterol. calcium carbonate 600 mg-cholecalciferol 400 units (CALTRATE- 600 PLUS VITAMIN D3) 600 mg(1,500mg) -400 unit ORAL Tab Take 1 tablet by mouth twice daily. clopidogrel (PLAVIX) 75 mg tablet Take 1 tablet by mouth once daily. FISH OIL CAP Take one(1) tablet two(2) times daily. FLAXSEED OIL 1,000 MG CAP Take one(1) tablet daily. gluc fritz/chondro fritz a/vit c/mn(GLUCOSAMINE CHONDROITIN MAXIMUM STRENGTH 500 MG-400 MG CAP) Take one(1) tablet two(2) times daily. metoprolol tartrate, short acting, (LOPRESSOR) 50 mg tablet Take 1 tablet by mouth twice daily. Omeprazole Magnesium (PRILOSEC OTC) 20 mg tablet Take 1 tablet by mouth once daily. 1/2 hr before meal. THERAPEUTIC MULTIVITAMIN TAB Take one(1) tablet daily. triamcinolone acetonide (KENALOG) 0.5 % cream Apply 1 application to affected area twice daily. For rash/itching. Apply sparingly. Avoid face/skin fold. No current facility-administered medications on file prior to visit. ALLERGIES Allergen Reactions - Asa [Salicylates] Hives - Bactrim [Sulfametho* Rash - Tetanus Vaccines An* Swelling PHYSICAL EXAMINATION: BP 122/72 (BP Site: Right Arm, BP Position: Sitting) Pulse 68 Temp 36.8 ?C (98.2 ?F) (Temporal Artery) Resp 18 Wt 55.4 kg (122 lb 3.2 oz) BMI 23.09 kg/m? General appearance: Well appearing, alert, in no acute distress, well-hydrated, well nourished. Skin: Skin color, texture, turgor normal, no suspicious rashes or lesions Head: Normocephalic,Eyes: Anicteric sclera. Ears: External ears normal, Lungs: Lungs clear to auscultation. No wheezing, rhonchi, rales Heart: RRR without murmur, gallop, or rubs. No ectopy Peripheral pulses: Normal ASSESSMENT/PLAN: 1. Essential hypertension, benign - ICD9: 401.1, ICD10: I10 - good control - factors affecting control of BP include increased stress - Continue current medication(s) - Recommend home blood pressure monitoring, to bring results in on next visit - Goal of BP <130/80 - f/u with PCP as scheduled - bring BP readings to with PCP for review TIFFANIE Mayberry Observed: 05/02/2018 Status: COMPLETED Source: [place] 10:00 AM [facility] REPOSITORY Office Visit (FAMPWS) OLGADENAE ([id number]) 1935 F Date Time Provider Department 05/02/18 10:00 AM MARY RIVERO (ANNETTE) FAMPWS During your visit today, we recorded the following information about you: Temperature Pulse Respiration Blood pressure 98.2 degrees 68/minute 18/minute 122/72 Weight 55.4 kg Mary Rivero APRN.CNP 05/02/2018 10:50 AM Signed HPI/CC: Denaesivakumar Pathak is a 82 year old female who presents to the office today for [facility] ER follow-up for elevated BP. BP at home was 179/109. Patient denies CP, SOB, dizziness, lightheadedness, headache, edema. Since DC from ER BP has been normal. States that she is feeling more stressed with the holidays and not having her (recently past). Recent fall- seeing PCP next week for this. Testing completed at the facility: none Labwork completed at the facility: none REVIEW OF SYSTEMS as above HISTORIES: PAST MEDICAL HISTORY Diagnosis Date - Acute cholecystitis 05/14/14 - Cholelithiasis 05/14/14 - Diverticulosis of colon (without mention of hemorrhage) - Essential hypertension, benign - GERD (gastroesophageal reflux disease) - Internal hemorrhoids without mention of complication - Other and unspecified hyperlipidemia - Other kyphoscoliosis and scoliosis - Post-operative nausea and vomiting 04/2014 - Symptomatic menopausal or female climacteric states MENOPAUSE PAST SURGICAL HISTORY Procedure Laterality Date - COLONOSCOP W/ OR W/O [facility] SPEC 06/28/05 - LAPAROSCOPIC CHOLEYCYSTECTOMY 05/14/14 ANESTHESIA difficulty due to severe post o N/V - NONE FAMILY HISTORY Problem Relation Age of Onset - Cervical Cancer Mother - Heart Mother - Heart Father growth in colon ,removed 12 of colon benign Social History Marital status: Spouse name: Aj Years of education: Number of children: 1 Occupational History Occupation Employer Comment retired Social History Main Topics Smoking status: Never Smoker Smokeless tobacco: Never Used Alcohol use: No Drug use: No Current Outpatient Prescriptions on File Prior to Visit: acetaminophen (TYLENOL EXTRA STRENGTH) 500 mg tablet Take 2 tablets by mouth every 8 hours as needed for Pain. atorvastatin (LIPITOR) 40 mg tablet Take 1 tablet by mouth daily at bedtime. For cholesterol. calcium carbonate 600 mg-cholecalciferol 400 units (CALTRATE- 600 PLUS VITAMIN D3) 600 mg(1,500mg) -400 unit ORAL Tab Take 1 tablet by mouth twice daily. clopidogrel (PLAVIX) 75 mg tablet Take 1 tablet by mouth once daily. FISH OIL CAP Take one(1) tablet two(2) times daily. FLAXSEED OIL 1,000 MG CAP Take one(1) tablet daily. gluc fritz/chondro fritz a/vit c/mn(GLUCOSAMINE CHONDROITIN MAXIMUM STRENGTH 500 MG-400 MG CAP) Take one(1) tablet two(2) times daily. metoprolol tartrate, short acting, (LOPRESSOR) 50 mg tablet Take 1 tablet by mouth twice daily. Omeprazole Magnesium (PRILOSEC OTC) 20 mg tablet Take 1 tablet by mouth once daily. 1/2 hr before meal. THERAPEUTIC MULTIVITAMIN TAB Take one(1) tablet daily. triamcinolone acetonide (KENALOG) 0.5 % cream Apply 1 application to affected area twice daily. For rash/itching. Apply sparingly. Avoid face/skin fold. No current facility-administered medications on file prior to visit. ALLERGIES Allergen Reactions - Asa [Salicylates] Hives - Bactrim [Sulfametho* Rash - Tetanus Vaccines An* Swelling PHYSICAL EXAMINATION: BP 122/72 (BP Site: Right Arm, BP Position: Sitting) Pulse 68 Temp 36.8 ?C (98.2 ?F) (Temporal Artery) Resp 18 Wt 55.4 kg (122 lb 3.2 oz) BMI 23.09 kg/m? General appearance: Well appearing, alert, in no acute distress, well-hydrated, well nourished. Skin: Skin color, texture, turgor normal, no suspicious rashes or lesions Head: Normocephalic,Eyes: Anicteric sclera. Ears: External ears normal, Lungs: Lungs clear to auscultation. No wheezing, rhonchi, rales Heart: RRR without murmur, gallop, or rubs. No ectopy Peripheral pulses: Normal ASSESSMENT/PLAN: 1. Essential hypertension, benign - ICD9: 401.1, ICD10: I10 - good control - factors affecting control of BP include increased stress - Continue current medication(s) - Recommend home blood pressure monitoring, to bring results in on next visit - Goal of BP <130/80 - f/u with PCP as scheduled - bring BP readings to with PCP for review Mary Rivero APRN.MINER Referring Provider: SELF [200] Allergies As of Date: 05/02/2018 Noted Allergy Reaction ASA (SALICYLATES) 04/21/2005 4 - Hives BACTRIM (SULFAMETHOXAZOLE) 07/30/2012 2 - Rash TETANUS VACCINES AND TOXOID 04/21/2005 7 - Swelling Date Reviewed: 05/02/2018 Reviewed by: Mandy Wyman LPN - Fully Assessed Reason for Visit: ER F/U [41] Cmt: ER follow up [facility] 04/30/18 high blood pressure Primary Visit Diagnosis:Essential hypertension, benign [I10] Prescriptions as of 05/02/2018 Sig: ACETAMINOPHEN 500 MG TABLET Take 2 tablets by mouth every* ATORVASTATIN 40 MG TABLET Take 1 tablet by mouth daily * CALCIUM CARBONATE 600 MG (1,5* Take 1 tablet by mouth twice * CLOPIDOGREL 75 MG TABLET Take 1 tablet by mouth once d* FISH OIL 500 MG CAPSULE Take one(1) tablet two(2) nahomy* FLAXSEED OIL 1,000 MG CAPSULE Take one(1) tablet daily. GLUCOSAMINE CHONDROITIN MAXIM* Take one(1) tablet two(2) nahomy* METOPROLOL TARTRATE 50 MG TAB* Take 1 tablet by mouth twice * OMEPRAZOLE MAGNESIUM 20 MG TA* Take 1 tablet by mouth once d* THERAPEUTIC MULTIVITAMIN TABL* Take one(1) tablet daily. TRIAMCINOLONE ACETONIDE 0.5 %* Apply 1 application to affect* Problem List As Of Date 05/02/2018 Noted Resolved BENIGN HYPERTENSION [I10] Hyperlipidemia [E78.5] Scoliosis (and kyphoscoliosis), idiopathic [M41* Disorder of bone and cartilage [M89.9, M94.9] INVALID FOR* OSTEOARTHROS NOS-UNSPEC [M19.90] INVALID FOR* DIVERTICULOSIS OF COLON W/O BLEED [K57.30] INT HEMORRHOID W/O COMPL [K64.8] NONSPECIF SKIN ERUPT NEC [R21] INVALID FOR* ESOPHAGEAL REFLUX [K21.9] INVALID FOR* Rhinitis, chronic [J31.0] INVALID FOR* Counseling and coordination of care [Z71.89] INVALID FOR*12/24/2014 More... 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*INVALID FOR* Balance disorder [R26.89] INVALID FOR* Cerebrovascular accident (CVA) (HCC) [I63.9] INVALID FOR* Dermatitis [L30.9] INVALID FOR* Cough [R05] INVALID FOR* Encounter Status:Closed by MARY RIVERO CNP on 05/02/18 EMERGENCY DEPARTMENT Observed: 04/30/2018 Status: F Source: [place] SUMMARY 11:00 PM [facility] REPOSITORY [facility] Medical Records Department [address] [place] [address] Emergency Department Summary 04/30/18 2232 MR#: [id number] Acct: [id number] Name: DENAE PATHAK Rep #: [id number] : 1935 82 From: Spencer Russell MD PCP: Aguila Ng, Status: DEP ER - ER Visit Summary Date of Service: 04/30/18 Chief Complaint: [] Blood pressure 170/80 no complaints related to blood pressure chronic leg pain History of Present Illness: The patient is a 82 F [] chronic hypertension her blood pressure runs anywhere from 120-140, she has chronic leg pain for which she takes Tylenol related to arthritis she reports today her blood pressure is running in the 120 range and then this evening 170/80 she has no head neck chest or abdominal pain shortness of breath numbness weakness or paresthesias, she has a prior history for stroke in the summer and the family was concerned and brought her to the hospital Per the family earlier she is complaining of quite a bit of exacerbation of her leg pain now she states it is better she is sitting in the bed stating she feels A[place] at baseline she wants really no evaluation done she just wants something extra for her blood pressure Physical Examination: [] Vitals are as above she is in no distress General, no distress resting comfortably HEENT is generally unremarkable The neck is supple no adenopathy Cardiovascular, regular rate and rhythm Lungs, clear bilateral Abdomen, soft nontender Extremities, no clubbing cyanosis or edema Neurologic, awake alert answering questions appropriately moving all 4 extremities she has no complaints of any kind her NIH is 0 I had a long conversation with the patient her family there is nothing to suggest complication from the current elevation of her blood pressure we have explained the blood pressure can fluctuate during the day for the most part she reports in general her blood pressures in the 120 range I suggested we could do CT labs etc. EKG they declined all that stating she felt fine at baseline now, she was given clonidine 0.2 mg p.o., 650 of Tylenol for her chronic leg pain and she wants to go home to follow-up with her family doctors tomorrow and she will return for change in symptoms, she will have her blood pressure repeated via her outpatient providers tomorrow with further management as clinically warranted Test Results: [] Emergency Department Course and Treatment: [] declined ED workup Treatment Plan: [] Disposition: [] Home stable Impression: [] hypertension, history of prior stroke, history of chronic leg pain This note was generated with BIOCUREXation software. It may contain incorrect words, spelling, and punctuation that were not noted in review of the chart prior to signing ED Disposition - Plan for ED Patient: Chief Complaint: Hypertension Referrals: Aguila Beebe DO [Primary Care Provider] - What to do if you have Problems For any increased pain, shortness of breath, bleeding, nausea or vomiting, chest pain, or any unexpected problems, contact your Primary Care Provider. Call [facility] ([phone]) or report to the closest Emergency Room. Call 911 if necessary. 04/30/182299 <Electronically signed by Spencer Russell MD> Date Spencer Russell MD Cosigner Signature (If Indicated): Date CC: Aguila Ng DO DISCHARGE INSTRUCTION Observed: 04/30/2018 Status: F Source: [place] 10:36 PM [facility] REPOSITORY [facility] Medical Records Department [address] [place] [id number] Discharge Instruction 04/30/182235 MR#: [id number] Acct: [id number] Name: DENAE PATHAK Rep #: [id number] : 1935 82 From: Spencer Russell MD PCP: Aguila Ng DO Status: PRE ER ED Disposition - Plan for ED Patient: Chief Complaint: Hypertension Instructions: ED HTN Established Referrals: Aguila Beebe DO [Primary Care Provider] - What to do if you have Problems For any increased pain, shortness of breath, bleeding, nausea or vomiting, chest pain, or any unexpected problems, contact your Primary Care Provider. Call [facility] ([phone]) or report to the closest Emergency Room. Call 911 if necessary. 04/30/182235 <Electronically signed by Spencer Russell MD> Date Spencer Pinon Signature (If Indicated): Date CC: Aguila Ng, PROGRESS Observed: 04/25/2018 Status: COMPLETED Source: [place] 1:11 PM [facility] REPOSIT[facility] HNO ID: [id number] Author: Julien Massey (Rn) Service: (none) Author Type: Registered Nurse Type: Progress Notes Filed: 04/25/2018 5:17 PM Note Text: ENVIRONMENTAL SERVICES TECHNICIAN EMERGENCY DEPARTMENT FOLLOW UP INITIAL CONTACT Provider Action/FYI: 1. Pt states fell out of bathtub, was seen in ER 04/05/18, Pt denies bleeding from any site, has bruising occasionally. 2. Pt denies BAIN, dizziness or other symptoms, no new falls 3. Lives in Independent living with Grandson, uses a walker states left sided weakness is slowly improving 4. Pt denies CP or Sob or other unusual symptoms 5. Pt only wants to see Pcp, Appt scheduled 05/14/18, Pt denies needs or concerns Initial contact with patient post discharge, spoke to Pt . Patient identified by name and date : YES SUMMARY: -Patient discharged from [facility] ED on 04/05/18. -Follow up appointment on 05/14/18. -Medication review done ( Complete at Appt) -Presented with: Fall CONCERNS: Pt denies needs or concerns NEW MEDICATIONS: None MEDS HELD/DISCONTINUED: None BRIEF ED COURSE: [facility] ED Excerpt Date of Service: 04/05/18 Chief Complaint: Slipped and fell in bathroom striking her head on the wall. History of Present Illness: The patient is a 82 F currently on Plavix for prior TIAs. She is in the bathroom today and she stumbled fell backwards and struck her head on the wall. No LOC. No bleeding. Complaining of scalp pain but no severe headache. No neck pain. No other injuries. Physical Examination: Well appearing female. Vital signs are stable. She is afebrile. H EENT exam no facial trauma. She has a small hematoma back of her scalp. Laceration. Mildly tender. C-spine nontender. Normal range of motion. Lungs clear to auscultation bilaterally. Heart regular rhythm no murmur. Chest wall nontender. Abdomen soft nontender. Pelvic girdle intact. Patient is moving all 4 extremities. Nontender no deformities. Normal range of motion. Back nontender. Neurologically she is awake and alert. Answering questions. Following commands. No focal motor deficits. Normal ibm bpm architect strength. Normal dorsi plantarflexion. She knows day, month, year and where she is at. Normal speech. Test Results: Due to the patient having a head injury being on Plavix a CT of her brain was obtained. Shows no acute abnormality and no acute intracranial bleed. Read by the radiologist. Emergency Department Course and Treatment: Ice to her scalp. Treatment Plan: Tylenol for pain. Head injury instructions. 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 Pt states fell out of bathtub, was seen in ER 04/05/18, Pt denies bleeding from any site, has bruising occasionally. 2. Pt denies BAIN, dizziness or other symptoms, no new falls 3. Lives in Independent living with Grandson, uses a walker states left sided weakness is slowly improving 4. Pt denies CP or Sob or other unusual symptoms 5. Pt only wants to see Pcp, Appt scheduled 05/14/18, Pt denies needs or concerns Initial contact with patient post discharge, spoke to Pt . Patient identified by name and date : YES SUMMARY: -Patient discharged from [facility] ED on 04/05/18. -Follow up appointment on 05/14/18. -Medication review done ( Complete at Appt) -Presented with: Fall CONCERNS: Pt denies needs or concerns NEW MEDICATIONS: None MEDS HELD/DISCONTINUED: None BRIEF ED COURSE: [facility] ED Excerpt Date of Service: 04/05/18 Chief Complaint: Slipped and fell in bathroom striking her head on the wall. History of Present Illness: The patient is a 82 F currently on Plavix for prior TIAs. She is in the bathroom today and she stumbled fell backwards and struck her head on the wall. No LOC. No bleeding. Complaining of scalp pain but no severe headache. No neck pain. No other injuries. Physical Examination: Well appearing female. Vital signs are stable. She is afebrile. H EENT exam no facial trauma. She has a small hematoma back of her scalp. Laceration. Mildly tender. C-spine nontender. Normal range of motion. Lungs clear to auscultation bilaterally. Heart regular rhythm no murmur. Chest wall nontender. Abdomen soft nontender. Pelvic girdle intact. Patient is moving all 4 extremities. Nontender no deformities. Normal range of motion. Back nontender. Neurologically she is awake and alert. Answering questions. Following commands. No focal motor deficits. Normal ibm bpm architect strength. Normal dorsi plantarflexion. She knows day, month, year and where she is at. Normal speech. Test Results: Due to the patient having a head injury being on Plavix a CT of her brain was obtained. Shows no acute abnormality and no acute intracranial bleed. Read by the radiologist. Emergency Department Course and Treatment: Ice to her scalp. Treatment Plan: Tylenol for pain. Head injury instructions. 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 Faculty Chronic Care [1409] Cmt: [facility] 04/05/18 Reason For Visit History Recorded Prescriptions as of 04/25/2018 Sig: METOPROLOL TARTRATE 50 MG TAB* Take 1 tablet by mouth twice * TRIAMCINOLONE ACETONIDE 0.5 %* Apply 1 application to affect* ATORVASTATIN 40 MG TABLET Take 1 tablet by mouth daily * CLOPIDOGREL 75 MG TABLET Take 1 tablet by mouth once d* ACETAMINOPHEN 500 MG TABLET Take 2 tablets by mouth every* OMEPRAZOLE MAGNESIUM 20 MG TA* Take 1 tablet by mouth once d* CALCIUM CARBONATE 600 MG (1,5* Take 1 tablet by mouth twice * GLUCOSAMINE CHONDROITIN MAXIM* Take one(1) tablet two(2) nahomy* THERAPEUTIC MULTIVITAMIN TABL* Take one(1) tablet daily. FISH OIL 500 MG CAPSULE Take one(1) tablet two(2) nahomy* FLAXSEED OIL 1,000 MG CAPSULE Take one(1) tablet daily. Problem List As Of Date 04/25/2018 Noted Resolved BENIGN HYPERTENSION [I10] Hyperlipidemia [E78.5] Scoliosis (and kyphoscoliosis), idiopathic [M41* Disorder of bone and cartilage [M89.9, M94.9] INVALID FOR* OSTEOARTHROS NOS-UNSPEC [M19.90] INVALID FOR* DIVERTICULOSIS OF COLON W/O BLEED [K57.30] INT HEMORRHOID W/O COMPL [K64.8] NONSPECIF SKIN ERUPT NEC [R21] INVALID FOR* ESOPHAGEAL REFLUX [K21.9] INVALID FOR* Rhinitis, chronic [J31.0] INVALID FOR* Counseling and coordination of care [Z71.89] INVALID FOR*12/24/2014 More... 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*INVALID FOR* Balance disorder [R26.89] INVALID FOR* Cerebrovascular accident (CVA) (HCC) [I63.9] INVALID FOR* Dermatitis [L30.9] INVALID FOR* Cough [R05] INVALID FOR* Encounter Status:Closed by SHILPA VICTORIA on 04/25/18 EMERGENCY DEPARTMENT Observed: 04/05/2018 Status: F Source: [place] SUMMARY 5:51 PM [facility] REPOSITORY [facility] Medical Records Department [address] [place] [address] Emergency Department Summary 04/05/18 1023 MR#: [id number] Acct: [id number] Name: DENAE PATHAK Rep #: [id number] : 1935 82 From: Philippe Chiang MD PCP: Aguila Ng DO Status: DEP ER - ER Visit Summary Date of Service: 04/05/18 Chief Complaint: Slipped and fell in bathroom striking her head on the wall. History of Present Illness: The patient is a 82 F currently on Plavix for prior TIAs. She is in the bathroom today and she stumbled fell backwards and struck her head on the wall. No LOC. No bleeding. Complaining of scalp pain but no severe headache. No neck pain. No other injuries. Physical Examination: Well appearing female. Vital signs are stable. She is afebrile. H EENT exam no facial trauma. She has a small hematoma back of her scalp. Laceration. Mildly tender. C-spine nontender. Normal range of motion. Lungs clear to auscultation bilaterally. Heart regular rhythm no murmur. Chest wall nontender. Abdomen soft nontender. Pelvic girdle intact. Patient is moving all 4 extremities. Nontender no deformities. Normal range of motion. Back nontender. Neurologically she is awake and alert. Answering questions. Following commands. No focal motor deficits. Normal ibm bpm architect strength. Normal dorsi plantarflexion. She knows day, month, year and where she is at. Normal speech. Test Results: Due to the patient having a head injury being on Plavix a CT of her brain was obtained. Shows no acute abnormality and no acute intracranial bleed. Read by the radiologist. Emergency Department Course and Treatment: Ice to her scalp. Treatment Plan: Tylenol for pain. Head injury instructions. Disposition: Discharge Impression: Acute fall with closed head injury with scalp hematoma Anticoagulated on Plavix This note was generated with [employer] dictation software. It may contain incorrect words, spelling, and punctuation that were not noted in review of the chart prior to signing ED Disposition - Plan for ED Patient: Chief Complaint: Fall Referrals: Aguila Beebe DO [Primary Care Provider] - What to do if you have Problems For any increased pain, shortness of breath, bleeding, nausea or vomiting, chest pain, or any unexpected problems, contact your Primary Care Provider. Call [facility] ([phone]) or report to the closest Emergency Room. Call 911 if necessary. 04/05/18 1751 <Electronically signed by Philippe Chiang MD> Date Philippe Chiang MD Cosigner Signature (If Indicated): Date CC: Aguila Ng DO DISCHARGE INSTRUCTION Observed: 04/05/2018 Status: F Source: [place] 5:51 PM [facility] REPOSITORY [facility] Medical Records Department [address] [place] [address] Discharge Instruction 04/05/18 1025 MR#: [id number] Acct: [id number] Name: DENAE PATHAK Rep #: [id number] : 1935 82 From: Philippe Chiang MD PCP: Aguila Ng DO Status: [facility] ER ED Disposition - Plan for ED Patient: Disposition: Home or Assisted Living Chief Complaint: Fall Instructions: ED Head Injury Closed Referrals: Aguila Beebe DO [Primary Care Provider] - As Needed Additional Instructions: Ice to scalp. Tylenol for pain. Hold Plavix next dose. Then restart. Return if severe headache, intractable vomiting or not acting right. What to do if you have Problems For any increased pain, shortness of breath, bleeding, nausea or vomiting, chest pain, or any unexpected problems, contact your Primary Care Provider. Call [facility] ([phone]) or report to the closest Emergency Room. Call 911 if necessary. 04/05/18 1751 <Electronically signed by Philippe Chiang MD> Date Philippe Chiang MD Cosigner Signature (If Indicated): Date CC: Aguila Ng DO BRAIN/HEAD WITHOUT Observed: 04/05/2018 Status: F Source: [place] CONTRAST 9:45 AM [facility] REPOSITORY [facility] Imaging Services [address] [place] [id number] Brain/Head without Contrast MR#: [id number] Acct: [id number] Name: PATHAKDENAE Rep #: [id number] : 1935 F 82 From: Carl Wynn MD PCP: Aguila Ng DO Status: REG ER Study: Brain/Head without Contrast Date of Exam: 04/05/18 Exam# [id number] Ordering Dr: Philippe Chiang MD STUDY: CT BRAIN WITHOUT CONTRAST REASON FOR EXAM: Female, 82 years old. Head injury due to a fall. No loss of consciousness. The patient is on Plavix. RADIATION DOSAGE (If Supplied By Facility): CTDIvol = ( 44.99 ) mGy, DLP = ( 745.49 ) mGycm TECHNIQUE: Transaxial CT imaging of the brain was performed without administration of intravenous contrast material. Individualized dose optimization techniques were used for this CT. COMPARISON: Comparison is made with prior study dated November 16, 2017. FINDINGS: Scalp hematoma overlying the left posterior parietal bone. Normal calvarium. There is mild cerebral atrophy with widening of the extra- axial spaces and ventricular dilatation. There are areas of decreased attenuation within the white matter tracts of the supratentorial brain, consistent with microvascular disease changes. Normal basal ganglia and thalami. Normal brainstem. Normal cerebellum. There is no intracranial hemorrhage. There are no findings of an acute ischemic infarction. Atherosclerotic calcification of the vertebral arteries and cavernous portions of the internal carotid arteries bilaterally. 1.1 cm polyp or retention cyst at the base of the left maxillary sinus. Partial opacification of the posterior aspect of the right ethmoid sinus. CT/Brain/Head without Contrast IMPRESSION: Chronic involutional changes of the brain. Scalp hematoma overlying the left posterior parietal bone. Electronically Signed: Carl Wynn MD at 10:45 EST Tel [phone], Service support , CC: Philippe Chiang MD; Aguila Ng DO Paraeducator: Signed XR CHEST 2V FRONTAL/LAT Observed: 03/21/2018 Status: F Source: [place] 3:06 PM [facility] REPOSITORY * * *Final Report* * * DATE OF EXAM: Mar 21 2018 3:06PM WOX [id number] - XR CHEST 2V FRONTAL/LAT / PROCEDURE REASON: Cough * * * * Physician Interpretation * * * * EXAMINATION: CHEST RADIOGRAPH (2 VIEW FRONTAL and LATERAL) CLINICAL HISTORY: Cough MQ: XC2_5 Comparison: None RESULT: Scoliosis. DJD. Cardiomegaly. Poor inspiration. Crowded lung markings. COPD IMPRESSION: Platelike atelectasis left base Paraeducator: GERDA Transcribe Date/Time: Mar 21 2018 4:06P Dictated by : CHAYA LYONS DO This examination was interpreted and the report reviewed and electronically signed by: CHAYA LYONS DO on Mar 21 2018 4:07PM EST [id number] PROGRESS Observed: 03/21/2018 Status: COMPLETED Source: [place] 2:56 PM [facility] REPOSITORY HNO ID: [id number] Author: Catrina Garduno (Rt) Tristan Kauffman Service: (none) Author Type: Sales Representative Publications Type: Progress Notes Filed: 03/21/2018 3:07 PM Note Text: Radiology Service Progress Note PATIENT NAME: Denae Pathak DATE OF SERVICE: March 21, 2018 TIME: 2:56 PM PATIENT IDENTITY VERIFICATION COMPLETED USING TWO (2) METHODS: Patient confirmed name verbally and Date of . PATIENT GENDER DATA: Female. status: : No status: NO. PATIENT RELEVANT IMPLANT DATA REVIEWED: Not Applicable RADIOLOGY DEPARTMENT: General X-ray: Exam(s) Completed: Chest X-Ray PERIPHERAL IV DATA: Not applicable SIGNED BY: RT Deisy March 21, 2018 2:56 PM PROGRESS Observed: 03/21/2018 Status: COMPLETED Source: [place] 2:45 PM [facility] REPOSITORY HNO ID: [id number] Author: Aguila Beebe Service: (none) Author Type: Physician Type: Progress Notes Filed: 03/23/2018 7:26 AM Note Text: CC: Denae Pathak is a 82 year old female who presents to the office for 6 month follow up HPI: She was seen last in office in December by Mary Rivero, at that time: She was to [facility] for nausea, vomiting, dizziness, near syncope on 11/16/2017. CT of brain was non-acute but was admitted for observation. 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 After cleared medically patient was discharged to Rehab for strengthening. ? ? Testing completed at the facility: CT, MRI, echo, 30 day event monitor, MRA of neck no significant stenosis. Other specialist and follow up care: Kamlesh to read event monitor Patient was started on Plavix and BB. Tolerating well. Taking BP BID- normal. In hospital HCTZ and potassium was stopped. K+: 4.0 Of note while in hospital patients . Discussed with patient today. Mood is stable and coping well. ? Patient has verbalized that she has sold her house and will be moving into [facility]. ? Currently patient is doing well. Participates in home PT/OT three times a week. Therapists report to patient that she is doing very well. Continues to have some minor limitations on left side and balance issues but improving everyday with therapy. Using walker. ? Concerned regarding right calf swelling, ecchymosis and tender nodule. Unknown injury. Ws started on Plavix as inpatient. ? Denies CP, SOB, N/V, diaphoresis, dizziness, lightheadedness, fever, chills, palpitations. Eating and drinking well. ? Family accompanies patient to appointment. Currently She has been through a lot of changes recently- her of >50 years recently of complications related to his lung disease, she has moved into independent living at [facility], to be close her to her daughter whom is in the usp there. She had the stroke and is taking the Plavix, has had some brusing arms and legs. No falls, is trying to consistently use her walker when ambulating Cough, non productive, present for 1-2 weeks, + sick contacts, no fevers or chills. PAST MEDICAL HISTORY Diagnosis Date - Acute cholecystitis 05/14/14 - Cholelithiasis 05/14/14 - Diverticulosis of colon (without mention of hemorrhage) - Essential hypertension, benign - GERD (gastroesophageal reflux disease) - Internal hemorrhoids without mention of complication - Other and unspecified hyperlipidemia - Other kyphoscoliosis and scoliosis - Post-operative nausea and vomiting 04/2014 - Symptomatic menopausal or female climacteric states MENOPAUSE PAST SURGICAL HISTORY Procedure Laterality Date - COLONOSCOP W/ OR W/O [facility] SPEC 06/28/05 - LAPAROSCOPIC CHOLEYCYSTECTOMY 05/14/14 ANESTHESIA difficulty due to severe post o N/V - NONE Current Outpatient Prescriptions: metoprolol tartrate, short acting, (LOPRESSOR) 50 mg tablet Take 1 tablet by mouth twice daily. triamcinolone acetonide (KENALOG) 0.5 % cream Apply 1 application to affected area twice daily. For rash/itching. Apply sparingly. Avoid face/skin fold. doxycycline (VIBRA-TABS) 100 mg tablet Take 1 tablet by mouth twice daily for 10 days. atorvastatin (LIPITOR) 40 mg tablet Take 1 tablet by mouth daily at bedtime. For cholesterol. clopidogrel (PLAVIX) 75 mg tablet Take 1 tablet by mouth once daily. acetaminophen (TYLENOL EXTRA STRENGTH) 500 mg tablet Take 2 tablets by mouth every 8 hours as needed for Pain. Omeprazole Magnesium (PRILOSEC OTC) 20 mg tablet Take 1 tablet by mouth once daily. 1/2 hr before meal. calcium carbonate 600 mg-cholecalciferol 400 units (CALTRATE- 600 PLUS VITAMIN D3) 600 mg(1,500mg) -400 unit ORAL Tab Take 1 tablet by mouth twice daily. gluc fritz/chondro fritz a/vit c/mn(GLUCOSAMINE CHONDROITIN MAXIMUM STRENGTH 500 MG-400 MG CAP) Take one(1) tablet two(2) times daily. THERAPEUTIC MULTIVITAMIN TAB Take one(1) tablet daily. FISH OIL CAP Take one(1) tablet two(2) times daily. FLAXSEED OIL 1,000 MG CAP Take one(1) tablet daily. No current facility-administered medications for this visit. ALLERGIES Allergen Reactions - Asa [Salicylates] Hives - Bactrim [Sulfametho* Rash - Tetanus Vaccines An* Swelling Social History Marital status: Spouse name: Aj Years of education: Number of children: 1 Occupational History Occupation Employer Comment retired Social History Main Topics Smoking status: Never Smoker Smokeless tobacco: Never Used Alcohol use: No Drug use: No ROS: See HPI PE: BP 100/62 Pulse 80 Resp 20 Wt 128 lb (58.1kg) Gen: AANDOX3, NAD, non-toxic appearing, cooperative HEENT: PERRLA, EOMs intact b/l, wearing glasses, nares without drainage, pharynx without erythema, exudate, lesions, or drainage. Uvula midline. MMM, EAC and TM normal b/l Neck: No LAD, no thyromegaly, no meningismus. CV: RRR, 2/6 HSM RUSB?murmur, normal s1s2? Lungs: CTA b/l, no wheezing, coughing No edema, normal pulses Skin: papular rash under breasts Severe scoliosis and thoracic kyphosis ASSESSMENT/PLAN: 1. BENIGN HYPERTENSION - ICD9: 401.1, ICD10: I10 (primary diagnosis) - good control - Continue current medication(s) - Encouraged dietary sodium restriction/DASH diet - Recommended regular aerobic exercise. - Recommend home blood pressure monitoring, to bring results in on next visit - Goal of BP <130/80 - METOPROLOL TARTRATE 50 MG TABLET 2. Dermatitis - ICD9: 692.9, ICD10: L30.9 - discussed skin care of rash - follow up if symptoms persist or worsen. - TRIAMCINOLONE ACETONIDE 0.5 % TOPICAL CREAM 3. Cough - ICD9: 786.2, ICD10: R05 - CXR today, rx as below - DOXYCYCLINE HYCLATE 100 MG TABLET - XR CHEST 2V FRONTAL/LAT 4. Cerebrovascular accident (CVA), unspecified mechanism (HCC) - ICD9: 434.91, ICD10: I63.9 - overall doing okay after stroke, need to use the walker as d/w her today 5. Arthritis, multiple joint involvement - ICD9: 716.99, ICD10: M12.9 - no recent falls, now in assisted living environment, d/w her need to use her walker to ambulate 6. Osteopenia of multiple sites - ICD9: 733.90, ICD10: M85.89 - Reviewed the need for Calcium and Vitamin D supplements and weight bearing exercise as tolerated 7. Balance disorder - ICD9: 781.99, ICD10: R26.89 - see above Aguila Beebe DO Return if no improvement. Follow up with Aguila Beebe DO. Discussed risks, benefits, alternatives, and potential side effects of medications. Patient/Guardian expressed understanding and agreed with the plan. See patient instructions. Aguila Beebe DO [address] [place] [address] CNOV Observed: 03/21/2018 Status: COMPLETED Source: [place] 1:40 PM [facility] REPOSITORY Office Visit (FAMPWS) DENAE PATHAK ([id number]) 1935 F Date Time Provider Department 03/21/18 1:40 PM AGUILA BEEBE FAMTanvirWS During your visit today, we recorded the following information about you: Pulse Respiration Blood pressure Weight 80/minute 20/minute 100/62 58.1 kg Aguila Beebe DO 03/21/2018 2:29 PM Signed Mucinex 600 mg twice a day for chest congestion Tylenol 1000 mg up to three times a day for discomfort Aguila Beebe DO 03/23/2018 7:26 AM Signed CC: Denae Pathak is a 82 year old female who presents to the office for 6 month follow up HPI: She was seen last in office in December by Mary Rivero, at that time: She was to [facility] for nausea, vomiting, dizziness, near syncope on 11/16/2017. CT of brain was non-acute but was admitted for observation. 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 After cleared medically patient was discharged to Rehab for strengthening. ? ? Testing completed at the facility: CT, MRI, echo, 30 day event monitor, MRA of neck no significant stenosis. Other specialist and follow up care: Kamlesh to read event monitor Patient was started on Plavix and BB. Tolerating well. Taking BP BID- normal. In hospital HCTZ and potassium was stopped. K+: 4.0 Of note while in hospital patients . Discussed with patient today. Mood is stable and coping well. ? Patient has verbalized that she has sold her house and will be moving into [facility]. ? Currently patient is doing well. Participates in home PT/OT three times a week. Therapists report to patient that she is doing very well. Continues to have some minor limitations on left side and balance issues but improving everyday with therapy. Using walker. ? Concerned regarding right calf swelling, ecchymosis and tender nodule. Unknown injury. Ws started on Plavix as inpatient. ? Denies CP, SOB, N/V, diaphoresis, dizziness, lightheadedness, fever, chills, palpitations. Eating and drinking well. ? Family accompanies patient to appointment. Currently She has been through a lot of changes recently- her of >50 years recently of complications related to his lung disease, she has moved into independent living at [facility], to be close her to her daughter whom is in the usp there. She had the stroke and is taking the Plavix, has had some brusing arms and legs. No falls, is trying to consistently use her walker when ambulating Cough, non productive, present for 1-2 weeks, + sick contacts, no fevers or chills. PAST MEDICAL HISTORY Diagnosis Date - Acute cholecystitis 05/14/14 - Cholelithiasis 05/14/14 - Diverticulosis of colon (without mention of hemorrhage) - Essential hypertension, benign - GERD (gastroesophageal reflux disease) - Internal hemorrhoids without mention of complication - Other and unspecified hyperlipidemia - Other kyphoscoliosis and scoliosis - Post-operative nausea and vomiting 04/2014 - Symptomatic menopausal or female climacteric states MENOPAUSE PAST SURGICAL HISTORY Procedure Laterality Date - COLONOSCOP W/ OR W/O [facility] SPEC 06/28/05 - LAPAROSCOPIC CHOLEYCYSTECTOMY 05/14/14 ANESTHESIA difficulty due to severe post o N/V - NONE Current Outpatient Prescriptions: metoprolol tartrate, short acting, (LOPRESSOR) 50 mg tablet Take 1 tablet by mouth twice daily. triamcinolone acetonide (KENALOG) 0.5 % cream Apply 1 application to affected area twice daily. For rash/itching. Apply sparingly. Avoid face/skin fold. doxycycline (VIBRA-TABS) 100 mg tablet Take 1 tablet by mouth twice daily for 10 days. atorvastatin (LIPITOR) 40 mg tablet Take 1 tablet by mouth daily at bedtime. For cholesterol. clopidogrel (PLAVIX) 75 mg tablet Take 1 tablet by mouth once daily. acetaminophen (TYLENOL EXTRA STRENGTH) 500 mg tablet Take 2 tablets by mouth every 8 hours as needed for Pain. Omeprazole Magnesium (PRILOSEC OTC) 20 mg tablet Take 1 tablet by mouth once daily. 1/2 hr before meal. calcium carbonate 600 mg-cholecalciferol 400 units (CALTRATE- 600 PLUS VITAMIN D3) 600 mg(1,500mg) -400 unit ORAL Tab Take 1 tablet by mouth twice daily. gluc fritz/chondro fritz a/vit c/mn(GLUCOSAMINE CHONDROITIN MAXIMUM STRENGTH 500 MG-400 MG CAP) Take one(1) tablet two(2) times daily. THERAPEUTIC MULTIVITAMIN TAB Take one(1) tablet daily. FISH OIL CAP Take one(1) tablet two(2) times daily. FLAXSEED OIL 1,000 MG CAP Take one(1) tablet daily. No current facility-administered medications for this visit. ALLERGIES Allergen Reactions - Asa [Salicylates] Hives - Bactrim [Sulfametho* Rash - Tetanus Vaccines An* Swelling Social History Marital status: Spouse name: Aj Years of education: Number of children: 1 Occupational History Occupation Employer Comment retired Social History Main Topics Smoking status: Never Smoker Smokeless tobacco: Never Used Alcohol use: No Drug use: No ROS: See HPI PE: BP 100/62 Pulse 80 Resp 20 Wt 128 lb (58.1kg) Gen: AANDOX3, NAD, non-toxic appearing, cooperative HEENT: PERRLA, EOMs intact b/l, wearing glasses, nares without drainage, pharynx without erythema, exudate, lesions, or drainage. Uvula midline. MMM, EAC and TM normal b/l Neck: No LAD, no thyromegaly, no meningismus. CV: RRR, 2/6 HSM RUSB?murmur, normal s1s2? Lungs: CTA b/l, no wheezing, coughing No edema, normal pulses Skin: papular rash under breasts Severe scoliosis and thoracic kyphosis ASSESSMENT/PLAN: 1. BENIGN HYPERTENSION - ICD9: 401.1, ICD10: I10 (primary diagnosis) - good control - Continue current medication(s) - Encouraged dietary sodium restriction/DASH diet - Recommended regular aerobic exercise. - Recommend home blood pressure monitoring, to bring results in on next visit - Goal of BP <130/80 - METOPROLOL TARTRATE 50 MG TABLET 2. Dermatitis - ICD9: 692.9, ICD10: L30.9 - discussed skin care of rash - follow up if symptoms persist or worsen. - TRIAMCINOLONE ACETONIDE 0.5 % TOPICAL CREAM 3. Cough - ICD9: 786.2, ICD10: R05 - CXR today, rx as below - DOXYCYCLINE HYCLATE 100 MG TABLET - XR CHEST 2V FRONTAL/LAT 4. Cerebrovascular accident (CVA), unspecified mechanism (HCC) - ICD9: 434.91, ICD10: I63.9 - overall doing okay after stroke, need to use the walker as d/w her today 5. Arthritis, multiple joint involvement - ICD9: 716.99, ICD10: M12.9 - no recent falls, now in assisted living environment, d/w her need to use her walker to ambulate 6. Osteopenia of multiple sites - ICD9: 733.90, ICD10: M85.89 - Reviewed the need for Calcium and Vitamin D supplements and weight bearing exercise as tolerated 7. Balance disorder - ICD9: 781.99, ICD10: R26.89 - see above Aguila Beebe DO Return if no improvement. Follow up with Aguila Beebe DO. Discussed risks, benefits, alternatives, and potential side effects of medications. Patient/Guardian expressed understanding and agreed with the plan. See patient instructions. Aguila Beebe DO [address] [place] [address] Referring Provider: AGUILA BEEBE [[id number]] Allergies As of Date: 03/21/2018 Noted Allergy Reaction ASA (SALICYLATES) 04/21/2005 4 - Hives BACTRIM (SULFAMETHOXAZOLE) 07/30/2012 2 - Rash TETANUS VACCINES AND TOXOID 04/21/2005 7 - Swelling Date Reviewed: 03/21/2018 Reviewed by: Camila Bey) INDIO Ryan - Fully Assessed Reason for Visit: 6 Month Exam [189] Primary Visit Diagnosis:BENIGN HYPERTENSION [I10] Other Visit Diagnoses:Dermatitis [L30.9] Cough [R05] Cerebrovascular accident (CVA), unspecified mechanism (HCC) [I63.9] Arthritis, multiple joint involvement [M12.9] Osteopenia of multiple sites [M85.89] Balance disorder [R26.89] Order(s):metoprolol tartrate, short acting, (LOPRESSOR) 50 mg tabletTake 1 tablet by mouth twice daily.Disp: 180 tabletRfl: 3 triamcinolone acetonide (KENALOG) 0.5 % creamApply 1 application to affected area twice daily. For rash/itching. Apply sparingly. Avoid face/skin fold.Disp: 90 gRfl: 1 doxycycline (VIBRA-TABS) 100 mg tabletTake 1 tablet by mouth twice daily for 10 days.Disp: 20 tabletRfl: 0 XR CHEST 2V FRONTAL/LAT [[id number]] Order #: [id number] FUTURE Prescriptions as of 03/21/2018 Sig: METOPROLOL TARTRATE 50 MG TAB* Take 1 tablet by mouth twice * TRIAMCINOLONE ACETONIDE 0.5 %* Apply 1 application to affect* DOXYCYCLINE HYCLATE 100 MG TA* Take 1 tablet by mouth twice * ATORVASTATIN 40 MG TABLET Take 1 tablet by mouth daily * CLOPIDOGREL 75 MG TABLET Take 1 tablet by mouth once d* ACETAMINOPHEN 500 MG TABLET Take 2 tablets by mouth every* OMEPRAZOLE MAGNESIUM 20 MG TA* Take 1 tablet by mouth once d* CALCIUM CARBONATE 600 MG (1,5* Take 1 tablet by mouth twice * GLUCOSAMINE CHONDROITIN MAXIM* Take one(1) tablet two(2) nahomy* THERAPEUTIC MULTIVITAMIN TABL* Take one(1) tablet daily. FISH OIL 500 MG CAPSULE Take one(1) tablet two(2) nahomy* FLAXSEED OIL 1,000 MG CAPSULE Take one(1) tablet daily. Problem List As Of Date 03/21/2018 Noted Resolved BENIGN HYPERTENSION [I10] Hyperlipidemia [E78.5] Scoliosis (and kyphoscoliosis), idiopathic [M41* Disorder of bone and cartilage [M89.9, M94.9] INVALID FOR* OSTEOARTHROS NOS-UNSPEC [M19.90] INVALID FOR* DIVERTICULOSIS OF COLON W/O BLEED [K57.30] INT HEMORRHOID W/O COMPL [K64.8] NONSPECIF SKIN ERUPT NEC [R21] INVALID FOR* ESOPHAGEAL REFLUX [K21.9] INVALID FOR* Rhinitis, chronic [J31.0] INVALID FOR* Counseling and coordination of care [Z71.89] INVALID FOR*12/24/2014 More... 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*INVALID FOR* Other instructions from your clinician: Mucinex 600 mg twice a day for chest congestion Tylenol 1000 mg up to three times a day for discomfort Prescriptions ordered this encounter Disp Refills Start End METOPROLOL TARTRATE 50 MG TABLET 180 * 3 03/21/2018 Class: Print RX Route: ORAL Sig: Take 1 tablet by mouth twice daily. TRIAMCINOLONE ACETONIDE 0.5 % TOPICA* 90 g 1 03/21/2018 Route: TOPICAL Sig: Apply 1 application to affected area twice daily. For rash/itching. Apply sparingly. Avoid face/skin fold. DOXYCYCLINE HYCLATE 100 MG TABLET 20 t* 0 03/21/2018 03/31/2018 Route: ORAL Sig: Take 1 tablet by mouth twice daily for 10 days. Medications Discontinued During This Encounter metoprolol tartrate, short acting, (* 180 * 3 04/17/2017 03/21/2018 Class: Print RX Route: ORAL Sig: Take 1 tablet by mouth twice daily. Disc: Reason for discontinue is not on file. triamcinolone acetonide (KENALOG) 0.* 1 Tu* 0 01/24/2018 03/21/2018 Route: TOPICAL Sig: Apply 1 application to affected area twice daily. For rash/itching. Apply sparingly. Avoid face/skin fold. Disc: Reason for discontinue is not on file. Encounter Status:Closed by AGUILA BEEBE DO on 03/23/18 STRESS REPORT Observed: 02/14/2018 Status: F Source: [place] 12:59 PM [facility] REPOSITORY [facility] Cardiovascular Services [address] [place] [address] MR#: [id number] Acct: [id number] Name: DENAE PATHAK Rep #: [id number] : 1935 82 From: Juwan Whitlock MD Primary Care: Aguila Ng DO Status: REG CLI Ordering Dr: Sex: F C Stress Test Report Pharmacologic myocardial perfusion stress test. 82-year-old lady with a history of wide complex tachycardia. Medications metoprolol Plavix Multivite. Resting EKG demonstrates normal sinus rhythm with a rate of 71 bpm normal intervals and noted resting blood pressure 724/88 mmHg. 0.4 mg regadenoson was infused per usual protocol. Continuous EKG monitoring was performed. The maximum heart rate attained was 103 bpm which was 75% of maximum predicted heart rate the maximum workload was 1 metabolic equivalent. The patient maintained sinus rhythm throughout the recording at rest were no ST or T-wave changes noted suggest abnormal flow reserve at peak infusion no ST or T-wave changes were noted suggest abnormal flow reserve. The resting blood pressure is 124/88 with a final blood pressure 116/76. Myocardial perfusion protocol. 11.0 mCi of technetium 99m sestamibi was injected at rest. 0.4 mg regadenoson was infused per usual protocol peak infusion 31.4 mCi of technetium 99m sestamibi was injected stress images were obtained stress and rest images were reconstructed and compared in the short axis vertical long horizontal long axis. Gated images were also obtained Perfusion SPECT analysis: Review of the stress images demonstrate normal uptake of tracer noted in all areas of the myocardium. The resting images similarly demonstrate normal uptake of tracer noted in all areas of the myocardium. No areas of reversibility are noted suggest ischemia and no previous infarct is noted. Gated SPECT analysis: The gated ejection fraction is 79%. Conclusion: Normal pharmacologic myocardial perfusion stress test. Preserved ejection fraction. 02/14/18 1259 <Electronically signed by Juwan Whitlock MD> Date Juwan Whitlock MD CC: Juwan Whitlock MD; Aguila Ng, Date Dictated: 02/14/181255 Date Transcribed: 02/14/181255 Paraeducator: CO Signed BASIC METABOLIC Collected: 01/31/2018 Status: F Source: [place] ([place]) 10:51 AM [facility] REPOSITORY TYPE CODE TESTS RESULT OUT OF RANGE REFERENCE UNITS LAB L501.0100 74-106 mg/dL High GLU 115 Result Comment: Fasting Glucose result from 100 to 125 mg/dL suggests IMPAIRED HOMEOSTASIS per A.D.A. criteria. Please note revised GLUCOSE reference range effective 2017. LAB L501.1000 7-18 mg/dL Normal BUN 11 LAB L501.1100 0.55-1.02 mg/dL Normal CREAT,SERUM 0.74 Result Comment: The validity of the calculated GFR AND GFRAA in patients over 70 years has not been determined. Clinical correlation is essential. LAB L501.1110 >60 mL/min Normal EST GFR 80 Result Comment: Non- GFR Calc LAB L501.1115 >60 mL/min Normal EST GFR - AA 97 Result Comment: GFR Calc LAB L501.1300 10-20 RATIO Normal BUN/CRE 14.9 LAB L501.2200 8.5-10.1 mg/dL CA Normal 8.9 LAB L501.5300 136-145 mmol/L NA Normal 138 LAB L501.5600 3.5-5.1 mmol/L K Normal 4.0 LAB L501.5900 98-107 mmol/L CL Normal 102 LAB L501.6100 21.0-32.0 mmol/L Normal CO2 28.0 LAB L501.6200 5-15 Normal GAP 8 Performed By: #### L500.2500, L501.5200 #### [facility] [address] [place], [address] MAGNESIUM Collected: 01/31/2018 Status: F Source: [place] 10:51 AM [facility] REPOSITORY TYPE CODE TESTS RESULT OUT OF RANGE REFERENCE UNITS LAB L501.5200 1.6-2.6 mg/dL Normal MG 2.2 Performed By: #### L500.2500, L501.5200 #### [facility] [address] [place], [address] CARDIOLOGY VISIT Observed: 01/31/2018 Status: F Source: [place] REPORT 10:23 AM [facility] REPOSITORY [facility] [address] [place] [address] OFFICE VISIT Date of Service: 01/31/18 MR#: [id number] Acct: [id number] Name: DENAE PATHAK Rep #: [id number] : 1935 Provider: Juwan Whitlock MD Age/Sex: 82/F Location: [facility] Status: Signed HPI HPI Chief Complaint: Initial visit Details: DENAE PATHAK, is a 82 F who presents to the office today for an initial visit. She was in the hospital during the summer of this year with dizziness and was noted to have a cerebellar infarct. As part of her workup she underwent an echocardiogram with demonstrated preserved ejection fraction of 60% with mild diastolic dysfunction. She also did have mild mitral and tricuspid regurgitation as well as mild aortic stenosis. She has had occasional episodes of dizziness but no julieta syncopal episodes. She did have a 30-day event monitor placed which demonstrated predominantly sinus rhythm but there was one episode of 24 beats of a wide complex tachycardia at a rate of 144 bpm. This was when her potassium was low. She has had no further symptoms. She has been compliant with all her medications. Her previous electrocardiogram demonstrated normal sinus rhythm with a first-degree AV block rate of 80 bpm leftward axis and no acute changes. Her physical exam demonstrates clear lung nicole regular rate and rhythm and no pedal edema. Intake Vital Signs01/31/18 Height 5 ft 5 in 01/31/18 Weight: 129 lb 01/31/18 Body Mass Index (BMI) 21.4 01/31/18 Blood Pressure 122/64 01/31/18 Respiratory Rate 16 01/31/18 Pulse Rate 60 Intake Visit Reasons: DC TCU 12-12-2017, Holter monitor early dec Allergies aspirin Allergy (Verified 01/31/18 09:39) Hives tetanus immune globulin Allergy (Verified 01/31/18 09:39) Rash Medications Metoprolol Tartrate [Lopressor (beta meghana)] 50 mg PO BID 05/13/14 [History Confirmed 01/31/18] Calcium Carbonate/Vitamin D3 [Caltrate 600 Plus D3 Tablet] 1 ea PO BID 11/16/17 [History Confirmed 01/31/18] Gluc Fritz/Chondro Fritz A/Vit C/Mn [Glucosamine-Chondroitin Cap] 2 ea PO DAILY 11/16/17 [History Confirmed 01/31/18] Multivitamin [Multiple Vitamins] 1 ea PO DAILY 11/16/17 [History Confirmed 01/31/18] Omeprazole Magnesium [Prilosec Otc] 20 mg PO DAILY 11/16/17 [History Confirmed 01/31/18] Acetaminophen [Tylenol] 1,000 mg PO Q8H PRN PRN tab 12/12/17 [Rx Confirmed 01/31/18] Atorvastatin Calcium [Lipitor] 40 mg PO QHS #30 tab 12/12/17 [Rx Confirmed 01/31/18] Clopidogrel Bisulfate [Plavix] 75 mg PO DAILY #30 tab 12/12/17 [Rx Confirmed 01/31/18] Triamcinolone 0.5% Cream [Kenalog] 1 applic TOPICAL BID tube 12/12/17 [Rx] flaxseed oil 1,000 mg capsule 1,000 mg PO DAILY 01/31/18 [History Confirmed 01/31/18] omega-3 fatty acids 1,000 mg capsule 1,000 mg PO DAILY 01/31/18 [History Confirmed 01/31/18] PFSH Medical History Non-rheumatic aortic stenosis (Chronic) Secondary pulmonary arterial hypertension (Chronic) Non-rheumatic tricuspid valve insufficiency (Chronic) Nonsustained ventricular tachycardia (Resolved) CVA (cerebral vascular accident) (Chronic 11/16/17) Hyperlipidemia (Chronic) HTN (hypertension) (Chronic) GERD (gastroesophageal reflux disease) (Chronic) Hypokalemia (Resolved) Social History Smoking Status: Never smoker ROS Const Const: Positive for weakness; negative for fatigue, difficulty sleeping, frequent falls, excessive sweating or headache(s) Eyes Eyes: Negative for loss of peripheral vision, transient loss of vision, blurry vision, tunnel vision or double vision ENT ENT: Negative for headache(s), dizziness, Nosebleed/epistaxis or balance problems Cardio Chest Pain: No Palpitations: No Edema: None Muscle aches with walking: None Resp Respiratory: Negative for SOB with activity, SOB at rest, SOB orthopnea\SOB lying down, paroxysmal nocturnal dyspnea or Cough GI GI: Negative nausea, heartburn, black,tarry stools or vomiting : Negative for hematuria Musc Musc: Positive for muscle weakness (Left sided weakness); negative for balance problems, muscle aches/ myalgia or joint pain Skin Skin: Negative non-healing lesions, unusual bruising or rash Neuro Neuro: Positive for weakness and other (walks with awalker); negative for frequent falls, headache(s), blurry vision, double vision, dizziness, lightheadedness, orthostatic symptoms, near syncope, syncope or lack of coordination [place] Hematologic/Lymphatic: Negative for easy bruising or easy bleeding Endo Endo: Negative for fatigue, excessive sweating or increased thirst/drinking Psych Psych: Negative for anxiety or depression Allergy Allergy/Immunology: Negative for hives, Negative for rash Cardiology Exam Const Appearance: cooperative, healthy appearing, well developed, well groomed and no acute distress Nutritional Appearance: well nourished and average body habitus Orientation: alert, awake and oriented x3 Head Head: normal to inspection, normocephalic and atraumatic Ears: hearing grossly normal bilaterally and external ears normal Nose: external nose normal, nasal mucous membranes and turbinates normal, nares normal, septum normal, no nasal discharge Face and Sinus: face symmetric Mouth: oral mucosae normal, tongue normal, oropharynx normal and moist mucous membranes Teeth and gingiva: dentition normal Throat: posterior oropharynx normal, tonsils normal and uvula midline Eyes General: appearance normal, both eyes and all related structures Eyelids: eyelids normal Conjunctivae: conjunctivae normal Pupils: PERRL, normal by confrontation and accommodation normal EOM: EOM intact bilaterally Neck Neck: normal visual inspection, trachea midline and no JVD JVD: +5 Carotids: normal carotid upstroke and bounding pulses Chest Chest inspection: normal inspection of the chest, symmetric chest movement and normal respiratory effort Auscultation: Bilateral: Clear to Auscultation Cardio Palpation: normal PMI Rate: regular rate Rhythm: regular rhythm Heart sounds: S1 normal and S2 normal Murmur: Grade 1/6 and early systolic GI GI: normal to inspection, soft, no hepatosplenomegaly and bowel sounds present Neuro General: alert, awake, oriented x3, no focal sensory deficit, gait normal and moves all extremities Skin Skin: no rashes or lesions noted Extremities Pulses: Normal: Right Femoral Pulse, Left Femoral Pulse, Right Dorsalis Pedis Pulse, Left Dorsalis Pedis Pulse, Right Posterior Tibial Pulse, Left Posterior Tibial Pulse, Right Radial Pulse, Left Radial Pulse Lower Extremity Edema: None: Bilateral Musculoskel Musculoskeletal: No joint tenderness Psych Psychological: normal affect Assessment AND Plan 1. Nonsustained ventricular tachycardia I47.2 Plan She did have a period of nonsustained ventricular tachyarrhythmia in the face of preserved ejection fraction and on beta-meghana. My recommendation will be for us to obtain a pharmacologic myocardial perfusion stress test. Depending on the findings of the recommendations will then be made. At this time however I would not make any other suggestions other than obtain a repeat chemistry profile to make sure that her potassium and magnesium are in the normal range. Orders Orders: 2. Essential hypertension I10 Plan Her blood pressure is under good control on the current medical therapy. No changes will be made. 3. CVA (cerebral vascular accident) I63.9 Acute left cerebellar infarct (small) Plan She appears to be fairly stable with respect to her recent cerebrovascular accident she is still walking with a walker and that will be continue to be encouraged. Thank you for allowing me to participate in the care of your patient. Please don't hesitate to call if any issues arise Plan Detail Other Medications Discontinued: alum-mag hydroxide-simeth 400-400-40 mg/5 mL15 mL PO Q6H PRN PRN DYSPEPSIA Leanne Mcleod Discontinued Reason: Discontinued by PC P/other physicians Follow Up 6 Months (mmm) Coding Level of Care Code Off vis,new,level 4 Diagnoses Nonsustained ventricular tachycardia I47.2 Essential hypertension I10 Hypertension type: essential hypertension CVA (cerebral vascular accident) I63.9 Precerebral and cerebral artery: cerebellar artery Coding Level of Care Code Off vis,new,level 4 Diagnoses Nonsustained ventricular tachycardia I47.2 Essential hypertension I10 Hypertension type: essential hypertension CVA (cerebral vascular accident) I63.9 Precerebral and cerebral artery: cerebellar artery 01/31/18 1023 <Electronically signed by Juwan Whitlock MD> Date Juwan Pinon Signature: Date (if applicable) CC: Aguila Ng DO PROGRESS Observed: 01/24/2018 Status: COMPLETED Source: [place] 10:15 AM [facility] REPOSITORY O ID: [id number] Author: Wilmar Silva LPN Service: (none) Author Type: (none) Type: Progress Notes Filed: 01/24/2018 11:29 AM Note Text: 82 year old female here for INACTIVATED INFLUENZA VACCINE. 2779-3584 Season Patient is identified by name and date of : Yes [] CONTRAINDICATIONS color enhanced section Age less than 6 months? No Allergy to eggs, chicken, chicken feathers, or chicken dander? No Allergy to thimerosal (a preservative) or formaldehyde? No History of severe reaction to any vaccine component or a previous dose of influenza vaccination? No History of Guillain-[place] Syndrome within 6 weeks after a previous influenza vaccine? No Current moderate or severe illness? No Current temperature greater or equal to 100.4F? No History of Bone Marrow Transplant in past 6 months or solid organ transplant in the past 3 months ? No [] VERIFICATION color enhanced section Was the answer Yes for any of the above contraindications? No contraindications present. Acceptable to proceed with vaccine. Patient/guardian agrees the above answers are true to the best of their knowledge? Yes Flu vaccine information sheet given? Yes See immunization activity in [facility] for details of immunizations adminstered today. Patient age: [age] year old For The 1229-8807 Flu Season 6-35 months old: Fluzone 0.25 ml - IM (Preservative Free) 3 years of age: Fluzone 0.5 ml - IM (Preservative Free) 3 years and older: Fluzone 0.5 ml- IM-(with Preservatives) 65+ years old: Fluzone High-Dose 0.5 ml - IM (Preservative Free) REMEMBER: If patient is less than 9 years of age and this is the first vaccine of Influenza to be received in any flu season, they should receive a second dose in one months time. PROGRESS Observed: 01/24/2018 Status: COMPLETED Source: [place] 9:50 AM [facility] REPOSITORY HNO ID: [id number] Author: Mary Garduno (Calendering Machine Operator) [facility] Service: (none) Author Type: Nurse Practitioner Type: Progress Notes Filed: 01/24/2018 11:29 AM Note Text: HPI/CC: Denae Pathak is a 82 year old female who presents for follow up. Concerned regarding continued fatigue- PT assured patient it may take a year for her to recover from CVA. Finished PT/OT this week. No falls- using walker. Feeling stronger everyday. Planning on moving into independent living on Monday. Obtained emergency alert necklace. States mood is stable but stressed related to move. Scheduled f/u with neurology 01/31. Denies CP, SOB, dizziness, lightheadedness, palpitations, change in BMs, change in urination, abdominal pain, fevers, chills, N/V. Eating well Component Latest Ref Rng AND Units 01/17/2018 Protein, Total 6.3 - 8.0 g/dL 6.7 Albumin 3.9 - 4.9 g/dL 4.0 Calcium 8.5 - 10.2 mg/dL 8.9 Bilirubin, Total 0.2 - 1.3 mg/dL 0.5 Alkaline Phosphatase 32 - 117 U/L 64 AST 13 - 35 U/L 22 Glucose 74 - 99 mg/dL 88 BUN 7 - 21 mg/dL 12 Creatinine 0.58 - 0.96 mg/dL 0.74 Sodium 136 - 144 mmol/L 138 Potassium 3.7 - 5.1 mmol/L 4.1 Chloride 97 - 105 mmol/L 99 CO2 22 - 30 mmol/L 25 Anion Gap 9 - 18 mmol/L 14 ALT 7 - 38 U/L 11 eGFR- >60 eGFR-All Other Races . >60 ROS as above, otherwise non-contributory. Reviewed PMHx, PSHx, social Hx, medications and allergies. PHYSICAL EXAMINATION: BP 126/82 Pulse 64 Resp 16 Wt 58.1 kg (128 lb) BMI 24.19 kg/m? General appearance: Well appearing, alert, in no acute distress, well-hydrated, well nourished. and Thin Skin: Skin color, texture, turgor normal, erythema under right breast Head: Normocephalic, no masses, lesions, tenderness or abnormalities Lungs: Lungs clear to auscultation. No wheezing, rhonchi, rales Heart: RRR without murmur, gallop, or rubs. No ectopy ASSESSMENT/PLAN: 1. Cerebrovascular accident (CVA), unspecified mechanism (HCC) - ICD9: 434.91, ICD10: I63.9 (primary diagnosis) - continue current therapy - f/u with neurology as scheduled 2. Rash - ICD9: 782.1, ICD10: R21 - TRIAMCINOLONE ACETONIDE 0.5 % TOPICAL CREAM - f/u as scheduled with PCP Mary Rivero APRN.ANNETTE DYKESOV Observed: 01/24/2018 Status: COMPLETED Source: [place] 9:40 AM [facility] REPOSITORY Office Visit (FAMPWS) DENAE PATHAK ([id number]) 1935 F Date Time Provider Department 01/24/18 9:40 AM MARY RIVERO (ANNETTE) FAMTanvirWS During your visit today, we recorded the following information about you: Pulse Respiration Blood pressure Weight 64/minute 16/minute 126/82 58.1 kg Mary Rivero APRN.MINER 01/24/2018 11:29 AM Signed HPI/CC: Denae Pathak is a 82 year old female who presents for follow up. Concerned regarding continued fatigue- PT assured patient it may take a year for her to recover from CVA. Finished PT/OT this week. No falls- using walker. Feeling stronger everyday. Planning on moving into independent living on Monday. Obtained emergency alert necklace. States mood is stable but stressed related to move. Scheduled f/u with neurology 01/31. Denies CP, SOB, dizziness, lightheadedness, palpitations, change in BMs, change in urination, abdominal pain, fevers, chills, N/V. Eating well Component Latest Ref Rng AND Units 01/17/2018 Protein, Total 6.3 - 8.0 g/dL 6.7 Albumin 3.9 - 4.9 g/dL 4.0 Calcium 8.5 - 10.2 mg/dL 8.9 Bilirubin, Total 0.2 - 1.3 mg/dL 0.5 Alkaline Phosphatase 32 - 117 U/L 64 AST 13 - 35 U/L 22 Glucose 74 - 99 mg/dL 88 BUN 7 - 21 mg/dL 12 Creatinine 0.58 - 0.96 mg/dL 0.74 Sodium 136 - 144 mmol/L 138 Potassium 3.7 - 5.1 mmol/L 4.1 Chloride 97 - 105 mmol/L 99 CO2 22 - 30 mmol/L 25 Anion Gap 9 - 18 mmol/L 14 ALT 7 - 38 U/L 11 eGFR- >60 eGFR-All Other Races . >60 ROS as above, otherwise non-contributory. Reviewed PMHx, PSHx, social Hx, medications and allergies. PHYSICAL EXAMINATION: BP 126/82 Pulse 64 Resp 16 Wt 58.1 kg (128 lb) BMI 24.19 kg/m? General appearance: Well appearing, alert, in no acute distress, well-hydrated, well nourished. and Thin Skin: Skin color, texture, turgor normal, erythema under right breast Head: Normocephalic, no masses, lesions, tenderness or abnormalities Lungs: Lungs clear to auscultation. No wheezing, rhonchi, rales Heart: RRR without murmur, gallop, or rubs. No ectopy ASSESSMENT/PLAN: 1. Cerebrovascular accident (CVA), unspecified mechanism (HCC) - ICD9: 434.91, ICD10: I63.9 (primary diagnosis) - continue current therapy - f/u with neurology as scheduled 2. Rash - ICD9: 782.1, ICD10: R21 - TRIAMCINOLONE ACETONIDE 0.5 % TOPICAL CREAM - f/u as scheduled with PCP Mary Rivero APRN.ANNETTE Wilmar Shira FOFANA 01/24/2018 11:29 AM Signed 82 year old female here for INACTIVATED INFLUENZA VACCINE. Season Patient is identified by name and date of : Yes [] CONTRAINDICATIONS color enhanced section Age less than 6 months? No Allergy to eggs, chicken, chicken feathers, or chicken dander? No Allergy to thimerosal (a preservative) or formaldehyde? No History of severe reaction to any vaccine component or a previous dose of influenza vaccination? No History of Guillain-[place] Syndrome within 6 weeks after a previous influenza vaccine? No Current moderate or severe illness? No Current temperature greater or equal to 100.4F? No History of Bone Marrow Transplant in past 6 months or solid organ transplant in the past 3 months ? No [] VERIFICATION color enhanced section Was the answer Yes for any of the above contraindications? No contraindications present. Acceptable to proceed with vaccine. Patient/guardian agrees the above answers are true to the best of their knowledge? Yes Flu vaccine information sheet given? Yes See immunization activity in [facility] for details of immunizations adminstered today. Patient age: [age] year old For The Flu Season 6-35 months old: Fluzone 0.25 ml - IM (Preservative Free) 3 years of age: Fluzone 0.5 ml - IM (Preservative Free) 3 years and older: Fluzone 0.5 ml- IM-(with Preservatives) 65+ years old: Fluzone High-Dose 0.5 ml - IM (Preservative Free) REMEMBER: If patient is less than 9 years of age and this is the first vaccine of Influenza to be received in any flu season, they should receive a second dose in one months time. Referring Provider: AGUILA BEEBE [[id number]] Allergies As of Date: 01/24/2018 Noted Allergy Reaction ASA (SALICYLATES) 04/21/2005 4 - Hives BACTRIM (SULFAMETHOXAZOLE) 07/30/2012 2 - Rash TETANUS VACCINES AND TOXOID 04/21/2005 7 - Swelling Date Reviewed: 01/24/2018 Reviewed by: Wilmar Silva LPN - Fully Assessed Reason for Visit: Imm/Inj [58] Cmt: Flu Vaccine Primary Visit Diagnosis:Cerebrovascular accident (CVA), unspecified mechanism (HCC) [I63.9] Other Visit Diagnoses:Rash [R21] Need for vaccination [Z23] Order(s):triamcinolone acetonide (KENALOG) 0.5 % creamApply 1 application to affected area twice daily. For rash/itching. Apply sparingly. Avoid face/skin fold.Disp: 1 TubeRfl: 0 INFLUENZA SEASONAL HIGH DOSE AGE 65+ [[id number]] Order #: [id number] Prescriptions as of 01/24/2018 Sig: TRIAMCINOLONE ACETONIDE 0.5 %* Apply 1 application to affect* ATORVASTATIN 40 MG TABLET Take 1 tablet by mouth daily * CLOPIDOGREL 75 MG TABLET Take 1 tablet by mouth once d* ACETAMINOPHEN 500 MG TABLET Take 2 tablets by mouth every* OMEPRAZOLE MAGNESIUM 20 MG TA* Take 1 tablet by mouth once d* METOPROLOL TARTRATE 50 MG TAB* Take 1 tablet by mouth twice * CALCIUM CARBONATE 600 MG (1,5* Take 1 tablet by mouth twice * GLUCOSAMINE CHONDROITIN MAXIM* Take one(1) tablet two(2) nahomy* THERAPEUTIC MULTIVITAMIN TABL* Take one(1) tablet daily. FISH OIL 500 MG CAPSULE Take one(1) tablet two(2) nahomy* FLAXSEED OIL 1,000 MG CAPSULE Take one(1) tablet daily. Problem List As Of Date 01/24/2018 Noted Resolved BENIGN HYPERTENSION [I10] Hyperlipidemia [E78.5] Scoliosis (and kyphoscoliosis), idiopathic [M41* Disorder of bone and cartilage [M89.9, M94.9] INVALID FOR* OSTEOARTHROS NOS-UNSPEC [M19.90] INVALID FOR* DIVERTICULOSIS OF COLON W/O BLEED [K57.30] INT HEMORRHOID W/O COMPL [K64.8] NONSPECIF SKIN ERUPT NEC [R21] INVALID FOR* ESOPHAGEAL REFLUX [K21.9] INVALID FOR* Rhinitis, chronic [J31.0] INVALID FOR* Counseling and coordination of care [Z71.89] INVALID FOR*12/24/2014 More... 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*INVALID FOR* Prescriptions ordered this encounter Disp Refills Start End TRIAMCINOLONE ACETONIDE 0.5 % TOPICA* 1 Tu* 0 01/24/2018 Route: TOPICAL Sig: Apply 1 application to affected area twice daily. For rash/itching. Apply sparingly. Avoid face/skin fold. Medications Discontinued During This Encounter triamcinolone acetonide (KENALOG) 0.* 12/14/2017 01/24/2018 Class: Historical Med Route: TOPICAL Sig: Apply 1 application to affected area twice daily. For rash/itching. Apply sparingly. Avoid face/skin fold. Disc: Reason for discontinue is not on file. Encounter Status:Closed by MARY RIVERO CNP on 01/24/18 COMP METABOLIC PANEL Collected: 01/17/2018 Status: F Source: [place] 9:02 AM [facility] REPOSITORY TYPE CODE TESTS RESULT OUT OF REFERENCE UNITS RANGE LAB TP 6.3-8.0 g/dL Protein, Total 6.7 LAB ALB 3.9-4.9 g/dL Albumin 4.0 LAB CA 8.5-10.2 mg/dL Calcium, Total 8.9 LAB TBIL 0.2-1.3 mg/dL Bilirubin, Total 0.5 LAB ALKP 32-117 U/L Alkaline Phosphatase 64 LAB AST 13-35 U/L AST 22 LAB GLU 74-99 mg/dL Glucose 88 Result Comment: The [place] [employer] (ADA) provides guidance for cutoff values for fasting glucose and random glucose. The ADA defines fasting as no caloric intake for at least 8 hours. Fas ting plasma glucose results between 100 to 125 mg/dL indicate increased risk for diabetes (prediabetes). Fasting plasma glucose results greater than or equal to 126 mg/dL meet the criteria for diagnosis of diabetes. In the absence of unequivocal hyperglycemia, results should be confirmed by repeat testing. In a patient with classic symptoms of hyperglycemia or hyperglycemic crisis, random plasma glucose results greater than or equal to 200 mg/dL meet the criteria for diagnosis of diabetes. Reference: Standards of Medical Care in Diabetes 2016, [place] [employer]. Diabetes Care. 2016.39(Suppl 1). LAB BUN 7-21 mg/dL BUN 12 LAB CRET 0.58-0.96 mg/dL Creatinine 0.74 LAB NA 136-144 mmol/L Sodium 138 LAB K 3.7-5.1 mmol/L Potassium 4.1 LAB CL 97-105 mmol/L Chloride 99 LAB CO2 22-30 mmol/L CO2 25 LAB AGAP 9-18 mmol/L Anion Gap 14 LAB ALT 7-38 U/L ALT 11 LAB GFRAA eGFR- Amer. >60 LAB GFRNAA . eGFR-All Other Races >60 Result Comment: eGFR (Estimated GFR) Units of measure: mL/min/1.73 meters squared eGFR is derived from the reexpressed MDRD Study equation using the following parameters: serum creatinine, age, gender and race. The creatinine assay has been calibrated to be traceable to IDSD. An eGFR <60 mL/min/1.73m2 for >3 months is consistent with chronic kidney disease. Refer to KDOQI guidelines for clinical interpretation. In patients with unstable renal function, e.g. those with acute kidney injury, the eGFR may not accurately reflect actual GFR. Performed By: #### CMP #### [facility] [address] [place], [place] [address] PROGRESS Observed: 12/21/2017 Status: COMPLETED Source: [place] 10:50 AM [facility] REPOSITORY HNO ID: [id number] Author: Cindy Mckeon Service: (none) Author Type: Senior Sql Server Dba Type: Progress Notes Filed: 12/21/2017 10:50 AM Note Text: Radiology Service Progress Note PATIENT NAME: Denae Pathak DATE OF SERVICE: December 21, 2017 TIME: 10:50 AM PATIENT IDENTITY VERIFICATION COMPLETED USING TWO (2) METHODS: Patient confirmed name verbally and Date of . PATIENT GENDER DATA: Female. status: : No status: N/A PATIENT RELEVANT IMPLANT DATA REVIEWED: Not Applicable RADIOLOGY DEPARTMENT: Ultrasound RT LEG DVT PERIPHERAL IV DATA: Not applicable SIGNED BY: CINDY MCKEON RDMS RVMonica December 21, 2017 10:50 AM US DVT LOWER RT Observed: 12/21/2017 Status: F Source: [place] 10:48 AM [facility] REPOSITORY * * *Final Report* * * DATE OF EXAM: Dec 21 2017 10:48AM U 1007 - US DVT LOWER RT / PROCEDURE REASON: Pain in right leg * * * * Physician Interpretation * * * * DOPPLER ULTRASOUND OF THE RIGHT LOWER EXTREMITY VEINS CLINICAL HISTORY: Medial posterior calf leg pain and bruising . FINDINGS: Grayscale, color Doppler and duplex Doppler evaluation were performed. The right common femoral, femoral, popliteal, peroneal, and posterior tibial veins appear patent without thrombus. Imaging of calf veins somewhat limited. In the area of bruising there is a small saphenous vein which is noncompressible in mid to distal calf with probably minimal blood flow. IMPRESSION: FINDINGS CONSISTENT WITH SUPERFICIAL THROMBOPHLEBITIS IN CALF, IN THE AREA OF BRUISING. NO EVIDENCE FOR RIGHT LOWER EXTREMITY DEEP VENOUS THROMBOSIS WITH SOMEWHAT LIMITED IMAGING OF THE CALF VEINS. Images were stored in a permanent archive. Paraeducator: PSCB Transcribe Date/Time: Dec 21 2017 10:49A Dictated by : JAZMINE JAVIER MD This examination was interpreted and the report reviewed and electronically signed by: JAZMINE JAVIER MD on Dec 21 2017 11:10AM EST [id number] PROGRESS Observed: 12/21/2017 Status: COMPLETED Source: [place] 8:55 AM [facility] REPOSITORY HNO ID: [id number] Author: Mary Rivero Service: (none) Author Type: Nurse Practitioner Type: Progress Notes Filed: 12/21/2017 9:20 AM Note Text: HPI/CC: Denae Pathak is a 82 year old female who presents to the office today for hospital follow-up. She was to [facility] for nausea, vomiting, dizziness, near syncope on 11/16/2017. CT of brain was non- acute but was admitted for observation. 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 After cleared medically patient was discharged to Rehab for strengthening. Testing completed at the facility: CT, MRI, echo, 30 day event monitor, MRA of neck no significant stenosis. Other specialist and follow up care: Kamlesh to read event monitor Patient was started on Plavix and BB. Tolerating well. Taking BP BID- normal. In hospital HCTZ and potassium was stopped. K+: 4.0 Of note while in hospital patients . Discussed with patient today. Mood is stable and coping well. Patient has verbalized that she has sold her house and will be moving into [facility]. Currently patient is doing well. Participates in home PT/OT three times a week. Therapists report to patient that she is doing very well. Continues to have some minor limitations on left side and balance issues but improving everyday with therapy. Using walker. Concerned regarding right calf swelling, ecchymosis and tender nodule. Unknown injury. Ws started on Plavix as inpatient. Denies CP, SOB, N/V, diaphoresis, dizziness, lightheadedness, fever, chills, palpitations. Eating and drinking well. Family accompanies patient to appointment. ROS as above HISTORIES: PAST MEDICAL HISTORY Diagnosis Date - Acute cholecystitis 05/14/14 - Cholelithiasis 05/14/14 - Diverticulosis of colon (without mention of hemorrhage) - Essential hypertension, benign - GERD (gastroesophageal reflux disease) - Internal hemorrhoids without mention of complication - Other and unspecified hyperlipidemia - Other kyphoscoliosis and scoliosis - Post-operative nausea and vomiting 04/2014 - Symptomatic menopausal or female climacteric states MENOPAUSE PAST SURGICAL HISTORY Procedure Laterality Date - COLONOSCOP W/ OR W/O [facility] SPEC 06/28/05 - LAPAROSCOPIC CHOLEYCYSTECTOMY 05/14/14 ANESTHESIA difficulty due to severe post o N/V - NONE FAMILY HISTORY Problem Relation Age of Onset - Cervical Cancer Mother - Heart Mother - Heart Father growth in colon ,removed 12 of colon benign Social History Marital status: Spouse name: Aj Years of education: Number of children: 1 Occupational History Occupation Employer Comment retired Social History Main Topics Smoking status: Never Smoker Smokeless tobacco: Never Used Alcohol use: No Drug use: No Current Outpatient Prescriptions on File Prior to Visit: triamcinolone acetonide (KENALOG) 0.5 % cream Apply 1 application to affected area twice daily. For rash/itching. Apply sparingly. Avoid face/skin fold. acetaminophen (TYLENOL EXTRA STRENGTH) 500 mg tablet Take 2 tablets by mouth every 8 hours as needed for Pain. Omeprazole Magnesium (PRILOSEC OTC) 20 mg tablet Take 1 tablet by mouth once daily. 1/2 hr before meal. metoprolol tartrate, short acting, (LOPRESSOR) 50 mg tablet Take 1 tablet by mouth twice daily. calcium carbonate 600 mg-cholecalciferol 400 units (CALTRATE- 600 PLUS VITAMIN D3) 600 mg(1,500mg) -400 unit ORAL Tab Take 1 tablet by mouth twice daily. gluc fritz/chondro fritz a/vit c/mn(GLUCOSAMINE CHONDROITIN MAXIMUM STRENGTH 500 MG-400 MG CAP) Take one(1) tablet two(2) times daily. THERAPEUTIC MULTIVITAMIN TAB Take one(1) tablet daily. FISH OIL CAP Take one(1) tablet two(2) times daily. FLAXSEED OIL 1,000 MG CAP Take one(1) tablet daily. No current facility-administered medications on file prior to visit. ALLERGIES Allergen Reactions - Asa [Salicylates] Hives - Bactrim [Sulfametho* Rash - Tetanus Vaccines An* Swelling PHYSICAL EXAMINATION: BP 128/90 Pulse 64 Resp 16 Wt 58.1 kg (128 lb) BMI 24.19 kg/m? General appearance: Well appearing, alert, in no acute distress, well-hydrated, well nourished. Skin: Skin color, texture, turgor normal, no suspicious rashes or lesions Head: Normocephalic, no masses, lesions, tenderness or abnormalities Eyes: Anicteric sclera. Pupils are equally round and reactive to light. Extraocular movements are intact. Ears: External ears normal, canals clear, TM's normal Nose/Sinuses: Nares normal, septum midline, mucosa normal, no drainage or sinus tenderness Oropharynx: Lips, mucosa, and tongue normal, teeth and gums normal, oropharynx normal Neck: Supple, no adenopathy; thyroid symmetric, normal size, no bruits Back: Normal exam Lungs: Lungs clear to auscultation. No wheezing, rhonchi, rales Heart: RRR without murmur, gallop, or rubs. No ectopy Abdomen: Normal abdominal exam, Abdomen soft, non-tender. Bowel sounds normal. No masses, organomegaly Extremities: No deformities, edema, skin discoloration, clubbing or cyanosis. Good capillary refill. Musculoskeletal: Spine range of motion normal. Muscular strength intact, No joint swelling, deformity, or tenderness Peripheral pulses: Normal Neuro: Negative findings: mental status intact, Positive findings: 4/5 left sided weakness, Oriented X 3, using walker for ambulation ASSESSMENT/PLAN: 1. Cerebrovascular accident (CVA), unspecified mechanism (HCC) - ICD9: 434.91, ICD10: I63.9 (primary diagnosis) - ATORVASTATIN 40 MG TABLET - CLOPIDOGREL 75 MG TABLET 2. Leg pain, right - ICD9: 729.5, ICD10: M79.604 - US DVT LOWER RT 3. Hypokalemia - ICD9: 276.8, ICD10: E87.6 - COMP METABOLIC PANEL 4. Essential hypertension, benign - ICD9: 401.1, ICD10: I10 - COMP METABOLIC PANEL - will await event monitor for need to f/u with cardiology - continue PT/OT - f/u in 4 weeks or before if needed Mary Rivero APRN.CNP CNOV Observed: 12/21/2017 Status: COMPLETED Source: [place] 8:00 AM [facility] REPOSITORY Office Visit (FAMPWS) DENAE PATHAK ([id number]) 1935 F Date Time Provider Department 12/21/17 8:00 AM MARY RIVERO (ANNETTE) FAMPWS During your visit today, we recorded the following information about you: Pulse Respiration Blood pressure Weight 64/minute 16/minute 128/90 58.1 kg Mary Rivero APRN.CNP 12/21/2017 9:20 AM Signed HPI/CC: Denae Pathak is a 82 year old female who presents to the office today for hospital follow-up. She was to [facility] for nausea, vomiting, dizziness, near syncope on 11/16/2017. CT of brain was non-acute but was admitted for observation. 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 After cleared medically patient was discharged to Rehab for strengthening. Testing completed at the facility: CT, MRI, echo, 30 day event monitor, MRA of neck no significant stenosis. Other specialist and follow up care: Kamlesh to read event monitor Patient was started on Plavix and BB. Tolerating well. Taking BP BID- normal. In hospital HCTZ and potassium was stopped. K+: 4.0 Of note while in hospital patients . Discussed with patient today. Mood is stable and coping well. Patient has verbalized that she has sold her house and will be moving into [facility]. Currently patient is doing well. Participates in home PT/OT three times a week. Therapists report to patient that she is doing very well. Continues to have some minor limitations on left side and balance issues but improving everyday with therapy. Using walker. Concerned regarding right calf swelling, ecchymosis and tender nodule. Unknown injury. Ws started on Plavix as inpatient. Denies CP, SOB, N/V, diaphoresis, dizziness, lightheadedness, fever, chills, palpitations. Eating and drinking well. Family accompanies patient to appointment. ROS as above HISTORIES: PAST MEDICAL HISTORY Diagnosis Date - Acute cholecystitis 05/14/14 - Cholelithiasis 05/14/14 - Diverticulosis of colon (without mention of hemorrhage) - Essential hypertension, benign - GERD (gastroesophageal reflux disease) - Internal hemorrhoids without mention of complication - Other and unspecified hyperlipidemia - Other kyphoscoliosis and scoliosis - Post-operative nausea and vomiting 04/2014 - Symptomatic menopausal or female climacteric states MENOPAUSE PAST SURGICAL HISTORY Procedure Laterality Date - COLONOSCOP W/ OR W/O [facility] SPEC 06/28/05 - LAPAROSCOPIC CHOLEYCYSTECTOMY 05/14/14 ANESTHESIA difficulty due to severe post o N/V - NONE FAMILY HISTORY Problem Relation Age of Onset - Cervical Cancer Mother - Heart Mother - Heart Father growth in colon ,removed 12 of colon benign Social History Marital status: Spouse name: Aj Years of education: Number of children: 1 Occupational History Occupation Employer Comment retired Social History Main Topics Smoking status: Never Smoker Smokeless tobacco: Never Used Alcohol use: No Drug use: No Current Outpatient Prescriptions on File Prior to Visit: triamcinolone acetonide (KENALOG) 0.5 % cream Apply 1 application to affected area twice daily. For rash/itching. Apply sparingly. Avoid face/skin fold. acetaminophen (TYLENOL EXTRA STRENGTH) 500 mg tablet Take 2 tablets by mouth every 8 hours as needed for Pain. Omeprazole Magnesium (PRILOSEC OTC) 20 mg tablet Take 1 tablet by mouth once daily. 1/2 hr before meal. metoprolol tartrate, short acting, (LOPRESSOR) 50 mg tablet Take 1 tablet by mouth twice daily. calcium carbonate 600 mg-cholecalciferol 400 units (CALTRATE- 600 PLUS VITAMIN D3) 600 mg(1,500mg) -400 unit ORAL Tab Take 1 tablet by mouth twice daily. gluc fritz/chondro fritz a/vit c/mn(GLUCOSAMINE CHONDROITIN MAXIMUM STRENGTH 500 MG-400 MG CAP) Take one(1) tablet two(2) times daily. THERAPEUTIC MULTIVITAMIN TAB Take one(1) tablet daily. FISH OIL CAP Take one(1) tablet two(2) times daily. FLAXSEED OIL 1,000 MG CAP Take one(1) tablet daily. No current facility-administered medications on file prior to visit. ALLERGIES Allergen Reactions - Asa [Salicylates] Hives - Bactrim [Sulfametho* Rash - Tetanus Vaccines An* Swelling PHYSICAL EXAMINATION: BP 128/90 Pulse 64 Resp 16 Wt 58.1 kg (128 lb) BMI 24.19 kg/m? General appearance: Well appearing, alert, in no acute distress, well-hydrated, well nourished. Skin: Skin color, texture, turgor normal, no suspicious rashes or lesions Head: Normocephalic, no masses, lesions, tenderness or abnormalities Eyes: Anicteric sclera. Pupils are equally round and reactive to light. Extraocular movements are intact. Ears: External ears normal, canals clear, TM's normal Nose/Sinuses: Nares normal, septum midline, mucosa normal, no drainage or sinus tenderness Oropharynx: Lips, mucosa, and tongue normal, teeth and gums normal, oropharynx normal Neck: Supple, no adenopathy; thyroid symmetric, normal size, no bruits Back: Normal exam Lungs: Lungs clear to auscultation. No wheezing, rhonchi, rales Heart: RRR without murmur, gallop, or rubs. No ectopy Abdomen: Normal abdominal exam, Abdomen soft, non-tender. Bowel sounds normal. No masses, organomegaly Extremities: No deformities, edema, skin discoloration, clubbing or cyanosis. Good capillary refill. Musculoskeletal: Spine range of motion normal. Muscular strength intact, No joint swelling, deformity, or tenderness Peripheral pulses: Normal Neuro: Negative findings: mental status intact, Positive findings: 4/5 left sided weakness, Oriented X 3, using walker for ambulation ASSESSMENT/PLAN: 1. Cerebrovascular accident (CVA), unspecified mechanism (HCC) - ICD9: 434.91, ICD10: I63.9 (primary diagnosis) - ATORVASTATIN 40 MG TABLET - CLOPIDOGREL 75 MG TABLET 2. Leg pain, right - ICD9: 729.5, ICD10: M79.604 - US DVT LOWER RT 3. Hypokalemia - ICD9: 276.8, ICD10: E87.6 - COMP METABOLIC PANEL 4. Essential hypertension, benign - ICD9: 401.1, ICD10: I10 - COMP METABOLIC PANEL - will await event monitor for need to f/u with cardiology - continue PT/OT - f/u in 4 weeks or before if needed Mary Rivero APRN.MINER Referring Provider: AGUILA BEEBE [[id number]] Allergies As of Date: 12/21/2017 Noted Allergy Reaction ASA (SALICYLATES) 04/21/2005 4 - Hives BACTRIM (SULFAMETHOXAZOLE) 07/30/2012 2 - Rash TETANUS VACCINES AND TOXOID 04/21/2005 7 - Swelling Date Reviewed: 12/21/2017 Reviewed by: Wilmar Silva LPN - Fully Assessed Reason for Visit: Hospital F/U [57] Cmt: [facility] marco a'd 12/15 dx CVA Primary Visit Diagnosis:Cerebrovascular accident (CVA), unspecified mechanism (HCC) [I63.9] Other Visit Diagnoses:Leg pain, right [M79.604] Hypokalemia [E87.6] Essential hypertension, benign [I10] Order(s):atorvastatin (LIPITOR) 40 mg tabletTake 1 tablet by mouth daily at bedtime. For cholesterol.Disp: 90 tabletRfl: 3 clopidogrel (PLAVIX) 75 mg tabletTake 1 tablet by mouth once daily.Disp: 90 tabletRfl: 3 COMP METABOLIC PANEL [SQCMP] Order #: [id number] FUTURE US LEG VEIN DVT UNL VAS LAB [[id number]] Order #: [id number] FUTURE US DVT LOWER RT [[id number]] Order #: [id number] FUTURE Prescriptions as of 12/21/2017 Sig: ATORVASTATIN 40 MG TABLET Take 1 tablet by mouth daily * CLOPIDOGREL 75 MG TABLET Take 1 tablet by mouth once d* TRIAMCINOLONE ACETONIDE 0.5 %* Apply 1 application to affect* ACETAMINOPHEN 500 MG TABLET Take 2 tablets by mouth every* OMEPRAZOLE MAGNESIUM 20 MG TA* Take 1 tablet by mouth once d* METOPROLOL TARTRATE 50 MG TAB* Take 1 tablet by mouth twice * CALCIUM CARBONATE 600 MG (1,5* Take 1 tablet by mouth twice * GLUCOSAMINE CHONDROITIN MAXIM* Take one(1) tablet two(2) nahomy* THERAPEUTIC MULTIVITAMIN TABL* Take one(1) tablet daily. FISH OIL 500 MG CAPSULE Take one(1) tablet two(2) nahomy* FLAXSEED OIL 1,000 MG CAPSULE Take one(1) tablet daily. Problem List As Of Date 12/21/2017 Noted Resolved BENIGN HYPERTENSION [I10] Hyperlipidemia [E78.5] Scoliosis (and kyphoscoliosis), idiopathic [M41* Disorder of bone and cartilage [M89.9, M94.9] INVALID FOR* OSTEOARTHROS NOS-UNSPEC [M19.90] INVALID FOR* DIVERTICULOSIS OF COLON W/O BLEED [K57.30] INT HEMORRHOID W/O COMPL [K64.8] NONSPECIF SKIN ERUPT NEC [R21] INVALID FOR* ESOPHAGEAL REFLUX [K21.9] INVALID FOR* Rhinitis, chronic [J31.0] INVALID FOR* Counseling and coordination of care [Z71.89] INVALID FOR*12/24/2014 More... Arthritis, multiple joint involvement [M12.9] INVALID FOR* Pure hypercholesterolemia [E78.00] INVALID FOR* Gastroesophageal reflux disease without esophag*INVALID FOR* Pain in joint, multiple sites [M25.50] INVALID FOR* Hypokalemia [E87.6] INVALID FOR* Osteopenia of multiple sites [M85.89] INVALID FOR* Prescriptions ordered this encounter Disp Refills Start End ATORVASTATIN 40 MG TABLET 90 t* 3 12/21/2017 Route: ORAL Sig: Take 1 tablet by mouth daily at bedtime. For cholesterol. CLOPIDOGREL 75 MG TABLET 90 t* 3 12/21/2017 Route: ORAL Sig: Take 1 tablet by mouth once daily. Medications Discontinued During This Encounter hydroCHLOROthiazide (HYDRODIURIL, ES* 90 t* 3 04/04/2017 12/21/2017 Route: ORAL Sig: Take 1 tablet by mouth once daily. Disc: Reason for discontinue is not on file. potassium chloride ER (K-DUR, KLOR-C* 180 * 3 04/17/2017 12/21/2017 Class: Print RX Route: ORAL Sig: Take 1 tablet by mouth twice daily. Disc: Reason for discontinue is not on file. ondansetron orally disintegrating (Z* 8 ta* 0 11/16/2017 12/21/2017 Route: ORAL Sig: Take 1 tablet by mouth every 12 hours as needed for Nausea/Vomiting. Disc: Reason for discontinue is not on file. atorvastatin (LIPITOR) 40 mg tablet 12/14/2017 12/21/2017 Class: Historical Med Route: ORAL Sig: Take 1 tablet by mouth daily at bedtime. For cholesterol. Disc: Reason for discontinue is not on file. clopidogrel (PLAVIX) 75 mg tablet 30 t* 11 12/14/2017 12/21/2017 Class: Historical Med Route: ORAL Sig: Take 1 tablet by mouth once daily. Disc: Reason for discontinue is not on file. Encounter Status:Closed by MARY RIVERO CNP on 12/21/17 PROGRESS Observed: 12/19/2017 Status: COMPLETED Source: [place] 11:53 AM [facility] REPOSITORY HNO ID: [id number] Author: Julien Massey (Rn) Service: (none) Author Type: Registered Nurse Type: Progress Notes Filed: 12/19/2017 1:36 PM Note Text: PRIMARY CARE COORDINATION QUICK NOTE Provider Action/FYI Pt has an Appt with Axel Rivero CNP 12/21/17, All medical forwarded to Axel Rivero, Pt denied needs or concerns. Patient identified by name and date . Thank You Shilpa Victoria RN December 19, 2017 11:53 AM PROGRESS Observed: 12/19/2017 Status: COMPLETED Source: [place] 7:39 AM [facility] REPOSITORY HNO ID: [id number] Author: Aguila Garduno Abiel Service: (none) Author Type: Physician Type: Progress Notes Filed: 12/19/2017 7:40 AM Note Text: Noted. Aguila Garduno DO Abiel PROGRESS Observed: 12/19/2017 Status: COMPLETED Source: [place] 7:32 AM [facility] REPOSITORY HNO ID: [id number] Author: Aguila Beebe Service: (none) Author Type: Physician Type: Progress Notes Filed: 12/19/2017 1:36 PM Note Text: Does she have an appointment? Anything we can do to help her. Aguila Garduno DO Abiel PROGRESS Observed: 12/14/2017 Status: COMPLETED Source: [place] 12:50 PM [facility] REPOSITORY HNO ID: [id number] Author: Julien Massey (Rn) Service: (none) Author Type: Registered Nurse Type: Progress Notes Filed: 12/19/2017 1:36 PM Note Text: TRANSITION CARE MANAGEMENT (TCM) INITIAL CONTACT Provider Action/FYI: TCM 14 1. Spk with Pt Alert and oriented x3, Speech is clear, Pt denies being dizzy or lightheaded, Nausea or vomiting or unusual symptoms 2. Evaluated by [facility] PT, using a walker as needed 3. Pt's grandson's girlfriend is living with Pt temporarily, Pt states she is getting along well, denies needs or concerns 4. Pt denies bleeding from any site, instructed to report any bleeding to Pcp /MINER. Pt verbalized understanding. Initial contact with patient post discharge, 12/14/17 Left a vm, 12/15/17 Tct Pt left a vm. Patient identified by name and . SUMMARY: -Pt discharged from [facility] 11/16-11/21/17, [facility] TCU 11/21/17-12/13/17. -Follow up appointment on 12/21/17. -Medication review done 12/18/17, New medications pended for Pcp/MINER review. -Admitted for: Dizziness (Acute), Nausea and vomiting (Acute), Near syncope (Acute), Cerebellar stroke, acute (Acute) NEW MEDICATIONS: Medications Pended Atorvastatin Calcium [Lipitor] 40 mg PO QHS #30 tab Clopidogrel Bisulfate [Plavix] 75 mg PO DAILY #30 tab Omeprazole 20 mg po daily Acetaminophen 1000 mg po every 8 hrs Prn Triamcinolone 0.5 % Cream 1 application topical Bid MEDS HELD/DISCONTINUED: BRIEF HOSPITAL COURSE: The patient is a 82 year old Female with below past medical history hospitalized for dizziness secondary to acute small cerebellar infarcts, complicated by hypokalemia, admitted to TCU with debility, here for rehabilitation, strengthening, prior to discharge home with spouse. Unfortunately, resident's Aj Pathak, also on TCU, during Denae's stay, she continues grieving process. Discharge home where family plans to provide 24 hour care for resident, along with Home Health Services. Discharge Diet: No Restrictions Discharge Activity: Return to Normal Activity, May Shower, Use Walker Weight Bearing Status: Weight bearing as tolerated Please follow up with your Primary Care Physician in: 1 week. Disposition: Home with Home Health Minutes spent on discharge:: 35 Patient Condition:: Stable Thank You, Shilpa Victoria RN December 14, 2017 1:04 PM CNPTOUTREACH Observed: 12/14/2017 Status: COMPLETED Source: [place] 12:00 AM [facility] REPOSITORY Patient Outreach (FAMPWS) DENAE PATHAK ([id number]) 1935 F Date Time Provider Department 12/14/17 JULIEN MASSEY (RN) FAMPWS During your visit today, we recorded the following information about you: Shilpa Victoria RN 12/19/2017 1:36 PM Signed TRANSITION CARE MANAGEMENT (TCM) INITIAL CONTACT Provider Action/FYI: TCM 14 1. Spk with Pt Alert and oriented x3, Speech is clear, Pt denies being dizzy or lightheaded, Nausea or vomiting or unusual symptoms 2. Evaluated by [facility] PT, using a walker as needed 3. Pt's grandson's girlfriend is living with Pt temporarily, Pt states she is getting along well, denies needs or concerns 4. Pt denies bleeding from any site, instructed to report any bleeding to Pcp /MINER. Pt verbalized understanding. Initial contact with patient post discharge, 12/14/17 Left a vm, 12/15/17 Tct Pt left a vm. Patient identified by name and . SUMMARY: -Pt discharged from [facility] 11/16-11/21/17, [facility] TCU 11/21/17-12/13/17. -Follow up appointment on 12/21/17. -Medication review done 12/18/17, New medications pended for Pcp/MINER review. -Admitted for: Dizziness (Acute), Nausea and vomiting (Acute), Near syncope (Acute), Cerebellar stroke, acute (Acute) NEW MEDICATIONS: Medications Pended Atorvastatin Calcium [Lipitor] 40 mg PO QHS #30 tab Clopidogrel Bisulfate [Plavix] 75 mg PO DAILY #30 tab Omeprazole 20 mg po daily Acetaminophen 1000 mg po every 8 hrs Prn Triamcinolone 0.5 % Cream 1 application topical Bid MEDS HELD/DISCONTINUED: BRIEF HOSPITAL COURSE: The patient is a 82 year old Female with below past medical history hospitalized for dizziness secondary to acute small cerebellar infarcts, complicated by hypokalemia, admitted to TCU with debility, here for rehabilitation, strengthening, prior to discharge home with spouse. Unfortunately, resident's Aj Pathak, also on TCU, during Denae's stay, she continues grieving process. Discharge home where family plans to provide 24 hour care for resident, along with Home Health Services. Discharge Diet: No Restrictions Discharge Activity: Return to Normal Activity, May Shower, Use Walker Weight Bearing Status: Weight bearing as tolerated Please follow up with your Primary Care Physician in: 1 week. Disposition: Home with Home Health Minutes spent on discharge:: 35 Patient Condition:: Stable Thank You, Shilpa Victoria, FRANCISCO J December 14, 2017 1:04 PM Aguila Beebe DO 12/19/2017 1:36 PM Signed Does she have an appointment? Anything we can do to help her. DO Aguila Anne DO 12/19/2017 7:40 AM Signed Noted. DO Shilpa Anne RN 12/19/2017 1:36 PM Signed PRIMARY CARE COORDINATION QUICK NOTE Provider Action/FYI Pt has an Appt with Axel Rivero CNP 12/21/17, All medical forwarded to Axel Rivero, Pt denied needs or concerns. Patient identified by name and date . Thank You Shilpa Victoria RN December 19, 2017 11:53 AM Allergies As of Date: 12/14/2017 Noted Allergy Reaction ASA (SALICYLATES) 04/21/2005 4 - Hives BACTRIM (SULFAMETHOXAZOLE) 07/30/2012 2 - Rash TETANUS VACCINES AND TOXOID 04/21/2005 7 - Swelling Date Reviewed: 11/16/2017 Reviewed by: Wilmar Silva LPN - Fully Assessed Reason for Visit: Transition Of Care [4074] Cmt: [facility] D/C 12/13/17 Reason For Visit History Recorded Prescriptions as of 12/14/2017 Sig: METOPROLOL TARTRATE 50 MG TAB* Take 1 tablet by mouth twice * CALCIUM CARBONATE 600 MG (1,5* Take 1 tablet by mouth twice * GLUCOSAMINE CHONDROITIN MAXIM* Take one(1) tablet two(2) nahomy* THERAPEUTIC MULTIVITAMIN TABL* Take one(1) tablet daily. FISH OIL 500 MG CAPSULE Take one(1) tablet two(2) nahomy* FLAXSEED OIL 1,000 MG CAPSULE Take one(1) tablet daily. ATORVASTATIN 40 MG TABLET Take 1 tablet by mouth daily * CLOPIDOGREL 75 MG TABLET Take 1 tablet by mouth once d* TRIAMCINOLONE ACETONIDE 0.5 %* Apply 1 application to affect* ACETAMINOPHEN 500 MG TABLET Take 2 tablets by mouth every* OMEPRAZOLE MAGNESIUM 20 MG TA* Take 1 tablet by mouth once d* ONDANSETRON 4 MG DISINTEGRATI* Take 1 tablet by mouth every * POTASSIUM CHLORIDE ER 20 MEQ * Take 1 tablet by mouth twice * HYDROCHLOROTHIAZIDE 25 MG TAB* Take 1 tablet by mouth once d* Problem List As Of Date 12/14/2017 Noted Resolved BENIGN HYPERTENSION [I10] Hyperlipidemia [E78.5] Scoliosis (and kyphoscoliosis), idiopathic [M41* Disorder of bone and cartilage [M89.9, M94.9] INVALID FOR* OSTEOARTHROS NOS-UNSPEC [M19.90] INVALID FOR* DIVERTICULOSIS OF COLON W/O BLEED [K57.30] INT HEMORRHOID W/O COMPL [K64.8] NONSPECIF SKIN ERUPT NEC [R21] INVALID FOR* ESOPHAGEAL REFLUX [K21.9] INVALID FOR* Rhinitis, chronic [J31.0] INVALID FOR* Counseling and coordination of care [Z71.89] INVALID FOR*12/24/2014 More... Arthritis, multiple joint involvement [M12.9] INVALID FOR* Pure hypercholesterolemia [E78.00] INVALID FOR* Gastroesophageal reflux disease without esophag*INVALID FOR* Pain in joint, multiple sites [M25.50] INVALID FOR* Hypokalemia [E87.6] INVALID FOR* Osteopenia of multiple sites [M85.89] INVALID FOR* Medications Discontinued During This Encounter ibuprofen 200 mg ORAL tablet 0 04/15/2011 12/19/2017 Class: OTC Route: ORAL Sig: Take 1-2 tablets by mouth every 4 hours as needed. for pain. Disc: Course of therapy completed pravastatin (PRAVACHOL) 20 mg tablet 90 t* 3 04/17/2017 12/19/2017 Class: Print RX Route: ORAL Sig: Take 1 tablet by mouth daily at bedtime. Disc: Course of therapy completed pantoprazole DR (PROTONIX) 20 mg tab* 90 t* 1 04/01/2015 12/19/2017 Route: ORAL Sig: Take 1 tablet by mouth daily before breakfast. Take on empty stomach, 1/2 hr before meal. Disc: Course of therapy completed Encounter Status:Closed by MARY RIVERO CNP on 12/19/17 PROGRESS Observed: 12/13/2017 Status: COMPLETED Source: [place] 1:46 PM [facility] REPOSITORY HNO ID: [id number] Author: Julien ColonRn) Service: (none) Author Type: Registered Nurse Type: Progress Notes Filed: 12/13/2017 1:47 PM Note Text: PRIMARY CARE COORDINATION QUICK NOTE Provider Action/FYI Noted, Thank You Patient identified by name and date . Shilpa Victoria RN December 13, 2017 1:47 PM PROGRESS Observed: 12/13/2017 Status: COMPLETED Source: [place] 11:52 AM [facility] REPOSITORY HNO ID: [id number] Author: Tanya Dumont Cma Service: (none) Author Type: (none) Type: Progress Notes Filed: 12/13/2017 1:47 PM Note Text: TRANSITION CARE MANAGEMENT (TCM) DISCHARGE FROM POST ACUTE FACILITY POST ACUTE TRANSFER SUMMARY: - Spoke to: EDISON Serna at TCU - Pt is getting discharged Home today 12/13/17. - Records requested (discharge summary from SNF: discharge medication list discharge instructions labs and imaging). I spoke with Daphne who states Denae is being discharged from [facility] TCU today. She's is going home and going to have family living with her since she needs 24 hour care. Her past away while in TCU, but SW states they've talked a lot about this and she seems to be doing well. Home PT and OT is set up through [facility]. Between the geriatric social work professor and Denae, Denae told the geriatric social work professor that she would eventually, potentially like to go to an assisted living facility because she not sure she can live with her family 12/12. Family is NOT aware she's looking into an assisted living facility. PROGRESS Observed: 12/13/2017 Status: COMPLETED Source: [place] 10:18 AM [facility] REPOSITORY HNO ID: [id number] Author: Tanya Dumont Cma Service: (none) Author Type: (none) Type: Progress Notes Filed: 12/13/2017 10:18 AM Note Text: Left message on EDISON Kamara, voicemail to return my call with any updates/discharge planning. I will return call x 1 week if I don't hear back from her. KATIUSKA Observed: 12/13/2017 Status: COMPLETED Source: [place] 12:00 AM [facility] REPOSITORY Patient Outreach (INTMWS) DENAE PATHAK ([id number]) 1935 F Date Time Provider Department 12/13/17 SHILPA VICTORIA (RN) INTMWS During your visit today, we recorded the following information about you: Tanya Dmuont Cma 12/13/2017 1:47 PM Signed TRANSITION CARE MANAGEMENT (TCM) DISCHARGE FROM POST ACUTE FACILITY POST ACUTE TRANSFER SUMMARY: - Spoke to: EDISON Serna at TCU - Pt is getting discharged Home today 12/13/17. - Records requested (discharge summary from SNF: discharge medication list discharge instructions labs and imaging). I spoke with Daphne who states Denae is being discharged from [facility] TCU today. She's is going home and going to have family living with her since she needs 24 hour care. Her past away while in TCU, but SW states they've talked a lot about this and she seems to be doing well. Home PT and OT is set up through [facility]. Between the geriatric social work professor and Denae, Denae told the geriatric social work professor that she would eventually, potentially like to go to an assisted living facility because she not sure she can live with her family 12/12. Family is NOT aware she's looking into an assisted living facility. Shilpa Victoria RN 12/13/2017 1:47 PM Signed PRIMARY CARE COORDINATION QUICK NOTE Provider Action/FYI Noted, Thank You Patient identified by name and date . Shilpa Victoria RN December 13, 2017 1:47 PM Allergies As of Date: 12/13/2017 Noted Allergy Reaction ASA (SALICYLATES) 04/21/2005 4 - Hives BACTRIM (SULFAMETHOXAZOLE) 07/30/2012 2 - Rash TETANUS VACCINES AND TOXOID 04/21/2005 7 - Swelling Date Reviewed: 11/16/2017 Reviewed by: Wilmar Silva LPN - Fully Assessed Reason for Visit: Transition Of Care [5164] Prescriptions as of 12/13/2017 Sig: ONDANSETRON 4 MG DISINTEGRATI* Take 1 tablet by mouth every * PRAVASTATIN 20 MG TABLET Take 1 tablet by mouth daily * POTASSIUM CHLORIDE ER 20 MEQ * Take 1 tablet by mouth twice * METOPROLOL TARTRATE 50 MG TAB* Take 1 tablet by mouth twice * HYDROCHLOROTHIAZIDE 25 MG TAB* Take 1 tablet by mouth once d* PANTOPRAZOLE 20 MG TABLET,DEL* Take 1 tablet by mouth daily * IBUPROFEN 200 MG TABLET Take 1-2 tablets by mouth marco antonio* CALCIUM CARBONATE 600 MG (1,5* Take 1 tablet by mouth twice * GLUCOSAMINE CHONDROITIN MAXIM* Take one(1) tablet two(2) nahomy* THERAPEUTIC MULTIVITAMIN TABL* Take one(1) tablet daily. FISH OIL 500 MG CAPSULE Take one(1) tablet two(2) nahomy* FLAXSEED OIL 1,000 MG CAPSULE Take one(1) tablet daily. Problem List As Of Date 12/13/2017 Noted Resolved BENIGN HYPERTENSION [I10] Hyperlipidemia [E78.5] Scoliosis (and kyphoscoliosis), idiopathic [M41* Disorder of bone and cartilage [M89.9, M94.9] INVALID FOR* OSTEOARTHROS NOS-UNSPEC [M19.90] INVALID FOR* DIVERTICULOSIS OF COLON W/O BLEED [K57.30] INT HEMORRHOID W/O COMPL [K64.8] NONSPECIF SKIN ERUPT NEC [R21] INVALID FOR* ESOPHAGEAL REFLUX [K21.9] INVALID FOR* Rhinitis, chronic [J31.0] INVALID FOR* Counseling and coordination of care [Z71.89] INVALID FOR*12/24/2014 More... Arthritis, multiple joint involvement [M12.9] INVALID FOR* Pure hypercholesterolemia [E78.00] INVALID FOR* Gastroesophageal reflux disease without esophag*INVALID FOR* Pain in joint, multiple sites [M25.50] INVALID FOR* Hypokalemia [E87.6] INVALID FOR* Osteopenia of multiple sites [M85.89] INVALID FOR* Encounter Status:Closed by SHILPA VICTORIA on 12/13/17 HOME HEALTH PROGRESS Observed: 12/12/2017 Status: F Source: [place] NOTE 10:29 PM [facility] REPOSITORY [facility] Medical Records Department [address] [place] [address] Home Health Progress Note Janf-za-Tpoa Encounter Encounter Date: 12/12/172227 MR#: [id number] Acct: [id number] Name: DENAE PATHAK Rep #: [id number] : 1935 82 From: Clint Lucas MD PCP: Aguila Ng DO Status: ADM IN Location: [place] [address] Home Health Note - Plan Overview of reason of hospitalization: The patient is a 82 year old Female with below past medical history hospitalized for dizziness secondary to acute small cerebellar infarcts, complicated by hypokalemia, admitted to TCU with debility, here for rehabilitation, strengthening, prior to discharge home with spouse. Unfortunately, resident's Aj Pathak, also on TCU, during Denae's stay, she continues grieving process. Discharge home where family plans to provide 24 hour care for resident, along with Home Health Services. Problems: Patient was seen for Dizziness (Acute) Nausea and vomiting (Acute) Near syncope (Acute) Cerebellar stroke, acute (Acute) Hyperlipidemia (Chronic) GERD (gastroesophageal reflux disease) (Chronic) Complete List of Medical Problems Stroke (Acute) Dizziness (Acute) Nausea and vomiting (Acute) Near syncope (Acute) Cerebellar stroke, acute (Acute) Hyperlipidemia (Chronic) GERD (gastroesophageal reflux disease) (Chronic) Hypokalemia (Acute) Biliary colic (Acute) Biliary calculus (Acute) HTN (hypertension) (Chronic) Dyslipidemia (Chronic) - Requirements and Reasons Disciplines Needed/Ordered: Physical Therapy Reason for Disciplines: Gait Training, Stair Training, Fall Prevention, Home Safety/Equipment Instruction, Balance and/or Posture Training, Transfer Training Related To: Limited/Poor Endurance, Shortness of Breath with Activity, Physical Impairments, Unsteady Gait/Balance, Fall Risk Patient is unable to leave the home: Without Aid of Supportive Devices (crutches, cane, wheelchair, walker), Without the assistance of another person - Additional Disciplines Additional Disciplines Needed/Ordered: Occupational Therapy 12/12/172228 <Electronically signed by Clint Lucas MD> Date Clint Lucas MD Cosigner Signature (if indicated): Date CC: Signed DISCHARGE SUMMARY Observed: 12/12/2017 Status: F Source: [place] 10:28 PM [facility] REPOSITORY [facility] Medical Records Department [address] [place] [address] Discharge Summary 12/12/172224 MR#: [id number] Acct: [id number] Name: DENAE PATHAK Delvin Rep #: [id number] : 1935 82 From: Clint Lucas MD PCP: Aguila Ng DO Status: ADM IN Location: [place] [address] Discharge Date and Diagnosis - Problem List Patient Problems: Active and Suspected Problems Dizziness (Acute) Nausea and vomiting (Acute) Near syncope (Acute) Cerebellar stroke, acute (Acute) Date of Admission: 11/21/17 Date of Discharge: 12/13/17 - Primary Discharge Diagnosis Active and Suspected Problems Dizziness (Acute) Nausea and vomiting (Acute) Near syncope (Acute) Cerebellar stroke, acute (Acute) - Secondary Discharge Diagnosis Chronic Problems Hyperlipidemia (Chronic) GERD (gastroesophageal reflux disease) (Chronic) HTN (hypertension) (Chronic) Dyslipidemia (Chronic) Hospital Course and Treatment Imaging Results: 11/30/17 07:25 Diet: Cardiac/Low Cholesterol Is pt able to select menu?: Yes Operations: None Procedures: None Summary of Care Provided: The patient is a 82 year old Female with below past medical history hospitalized for dizziness secondary to acute small cerebellar infarcts, complicated by hypokalemia, admitted to TCU with debility, here for rehabilitation, strengthening, prior to discharge home with spouse. Unfortunately, resident's Aj Pathak, also on TCU, during Denae's stay, she continues grieving process. Discharge home where family plans to provide 24 hour care for resident, along with Home Health Services. Discharge Diet: No Restrictions Discharge Activity: Return to Normal Activity, May Shower, Use Walker Weight Bearing Status: Weight bearing as tolerated Call your doctor if you observe: Fever of 101 or Higher, Inability to urinate, Inability to have a bowel movement, Shortness of breath, Chest pain, Uncontrolled pain Home Medications: Medications to take at Discharge Metoprolol Tartrate [Lopressor (beta meghana)] 50 mg PO BID 05/13/14 Calcium Carbonate/Vitamin D3 [Caltrate 600 Plus D3 Tablet] 1 each PO BID 11/16/17 Gluc Fritz/Chondro Fritz A/Vit C/Mn [Glucosamine-Chondroitin Cap] 2 each PO DAILY 11/16/17 Multivitamin [Multiple Vitamins] 1 each PO DAILY 11/16/17 Omeprazole Magnesium [Prilosec Otc] 20 mg PO DAILY 11/16/17 Mag Hydrox/Al Hydrox/Simeth [Mylanta II] 15 ml PO Q6H PRN PRN udc 11/21/17 Acetaminophen [Tylenol] 1,000 mg PO Q8H PRN PRN tablet 12/12/17 Atorvastatin Calcium [Lipitor] 40 mg PO QHS #30 tab 12/12/17 Clopidogrel Bisulfate [Plavix] 75 mg PO DAILY #30 tab 12/12/17 Triamcinolone 0.5% Cream [Kenalog] 1 applic TOPICAL BID tube 12/12/17 Following Prescrptions Were Given to Patient: Atorvastatin Calcium [Lipitor] 40 mg PO QHS #30 tab Clopidogrel Bisulfate [Plavix] 75 mg PO DAILY #30 tab Primary Care Physician: Aguila Beebe DO [Primary Care Provider] - Please follow up with your Primary Care Physician in: 1 week. Disposition: Home with Home Health Minutes spent on discharge:: 35 Patient Condition:: Stable Medical Necessity - Tobacco Use Smoking Status: Never smoker Tobacco Use: Non-smoker Meaningful Use Info Meaningful Use Diagnoses (Choose all that apply): None applicable 12/12/172227 <Electronically signed by Clint Lucas MD> Date Clint Lucas MD Cosigner Signature (if applicable): Date CC: Aguila Ng DO; Clint Lucas MD Signed DISCHARGE INSTRUCTION Observed: 12/12/2017 Status: F Source: [place] 10:25 PM [facility] REPOSITORY [facility] Medical Records Department [address] [place] [address] Instructions for Home/Discharge Instructions 12/12/172222 MR#: [id number] Acct: [id number] Name: DENAE PATHAK Rep #: [id number] : 1935 82 From: Clint Lucas MD PCP: Aguila Ng DO Status: ADM IN - Discharge Diagnoses Current Active Problems: Current Active and Chronic Problems Dizziness (Acute) Nausea and vomiting (Acute) Near syncope (Acute) Cerebellar stroke, acute (Acute) Hyperlipidemia (Chronic) GERD (gastroesophageal reflux disease) (Chronic) You will use the following diet at home:: No restrictions, Regular Your food should be the consistency of: Regular Your liquids should be the consistency of: Regular/Thin Discharge Activity: Return to Normal Activity, May Shower, Use Walker Weight Bearing Status: Weight bearing as tolerated Call your doctor if you observe: Fever of 101 or Higher, Inability to urinate, Inability to have a bowel movement, Shortness of breath, Chest pain, Uncontrolled pain Allergies/Adverse Reactions: Allergies aspirin Allergy (Verified 11/16/17 15:13) Hives tetanus immune globulin Allergy (Verified 11/16/17 15:13) Rash Medications to take at Discharge Metoprolol Tartrate [Lopressor (beta meghana)] 50 mg PO BID 05/13/14 Calcium Carbonate/Vitamin D3 [Caltrate 600 Plus D3 Tablet] 1 each PO BID 11/16/17 Gluc Fritz/Chondro Fritz A/Vit C/Mn [Glucosamine-Chondroitin Cap] 2 each PO DAILY 11/16/17 Multivitamin [Multiple Vitamins] 1 each PO DAILY 11/16/17 Omeprazole Magnesium [Prilosec Otc] 20 mg PO DAILY 11/16/17 Mag Hydrox/Al Hydrox/Simeth [Mylanta II] 15 ml PO Q6H PRN PRN udc 11/21/17 Acetaminophen [Tylenol] 1,000 mg PO Q8H PRN PRN tablet 12/12/17 Atorvastatin Calcium [Lipitor] 40 mg PO QHS #30 tab 12/12/17 Clopidogrel Bisulfate [Plavix] 75 mg PO DAILY #30 tab 12/12/17 Triamcinolone 0.5% Cream [Kenalog] 1 applic TOPICAL BID tube 12/12/17 The following prescriptions were given: Atorvastatin Calcium [Lipitor] 40 mg PO QHS #30 tab Clopidogrel Bisulfate [Plavix] 75 mg PO DAILY #30 tab Primary Care Physician: Aguila Beebe DO [Primary Care Provider] - Please follow up with your Primary Care Physician in: 1 week. Test Results: Test results from this visit will be discussed in further detail at your follow-up appointment, if applicable. Proposed Discharge Date: 12/13/17 12/12/172224 <Electronically signed by Clint Lucas MD> Date Clint Lucas MD CC: Aguila Ng DO PROGRESS Observed: 12/07/2017 Status: COMPLETED Source: [place] 1:43 PM [facility] REPOSITORY HNO ID: [id number] Author: Tanya Dumont [facility] Service: (none) Author Type: (none) Type: Progress Notes Filed: 12/07/2017 1:43 PM Note Text: I will call next week for patient update/any discharge planning. PROGRESS Observed: 12/07/2017 Status: COMPLETED Source: [place] 1:29 PM [facility] REPOSITORY HNO ID: [id number] Author: Julien Massey (Rn) Service: (none) Author Type: Registered Nurse Type: Progress Notes Filed: 12/07/2017 1:43 PM Note Text: TRANSITION CARE MANAGEMENT (TCM) DISCHARGE TO POST ACUTE FACILITY POST ACUTE TRANSFER SUMMARY: To Tanya Dumont for Discharge from TCU -Pt discharged from [facility] 11/16/17-11/21/17 -Post Acute Facility Admitted to [facility] TCU 11/21/17 -Admitted for: Stroke (recently lost during TCU stay) Shilpa Victoria RN December 07, 2017 1:30 PM CBC W/DIFF, AUTOMATED Collected: 12/07/2017 Status: F Source: [place] 5:30 AM [facility] REPOSITORY TYPE CODE TESTS RESULT OUT OF RANGE REFERENCE UNITS LAB L100.1000 4.4-11.0 K/mm3 Normal WBC 6.0 LAB L100.1200 4.2-5.4 M/mm3 Normal RBC 4.74 LAB L100.1300 12.0-15.0 g/dl Normal HGB 14.4 LAB L100.1400 37-47 % Normal HCT 42.7 LAB L100.1500 81-99 fL Normal MCV 90.1 LAB L100.1600 27.0-32.0 pg Normal MCH 30.4 LAB L100.1700 32-36 g/gl Normal MCHC 33.7 LAB L100.1810 11.6-14.6 % Normal RDW CV 13.2 LAB L100.1820 35.1-43.9 fl Normal RDW SD 43.2 LAB L100.1900 150-450 K/mm3 Normal PLT 271 LAB L100.2000 6.2-12.0 fl Normal MPV 11.5 LAB L100.2100 47-70 % Normal NEUT% 56.0 LAB L100.2200 19-41 % Normal LY% 26.5 LAB L100.2300 0-10 % Normal MONO% 8.6 LAB L100.2400 0-5 % High EO% 7.6 LAB L100.2500 0-1 % Normal BASO% 1.0 LAB L100.2550 0.0-0.9 % Normal IM GRAN % 0.300 Result Comment: IG% - Immature Granulocytes (promyelocytes, myelocytes and metamyelocytes) > 1% indicates that a LEFT SHIFT is Present. LAB L100.2620 2.0-7.7 X10 3/uL Normal Absolute Neut 3.4 LAB L100.2720 0.83-4.51 X10 3/ul Normal Absolute Lymph 1.60 Performed By: #### L100.0100 #### [facility] [address] [place], [place], [address] BASIC METABOLIC Collected: 12/07/2017 Status: F Source: [place] PROFILE (BMP) 5:30 AM [facility] REPOSITORY TYPE CODE TESTS RESULT OUT OF RANGE REFERENCE UNITS LAB L501.0100 74-106 mg/dL Normal GLU 93 Result Comment: Please note revised GLUCOSE reference range effective 2017. LAB L501.1000 7-18 mg/dL Low BUN 6 LAB L501.1100 0.55-1.02 mg/dL Normal CREAT,SERUM 0.68 Result Comment: The validity of the calculated GFR AND GFRAA in patients over 70 years has not been determined. Clinical correlation is essential. LAB L501.1110 >60 mL/min Normal EST GFR 88 Result Comment: Non- GFR Calc LAB L501.1115 >60 mL/min Normal EST GFR - AA 107 Result Comment: GFR Calc LAB L501.1255 ml/min Normal Estimated CRCL 38.36 LAB L501.1300 10-20 RATIO Low BUN/CRE 8.8 LAB L501.2200 8.5-10 mg/dL Normal .1 CA 8.7 LAB L501.5300 136-14 mmol/L Normal 5 NA 140 LAB L501.5600 3.5-5. mmol/L Normal 1 K 4.0 LAB L501.5900 98-107 mmol/L Normal CL 104 LAB L501.6100 21.0-3 mmol/L Normal 2.0 CO2 28.0 LAB L501.6200 5-15 Normal GAP 8 Performed By: #### L500.2500 #### [facility] [address] [place], [address] CNPTOUTREACH Observed: 12/07/2017 Status: COMPLETED Source: [place] 12:00 AM [facility] REPOSITORY Patient Outreach (FAMPWS) DENAE PATHAK ([id number]) 1935 F Date Time Provider Department 12/07/17 JULIEN MASSEY (RN) FAMPWS During your visit today, we recorded the following information about you: Shilpa Victoria RN 12/07/2017 1:43 PM Signed TRANSITION CARE MANAGEMENT (TCM) DISCHARGE TO POST ACUTE FACILITY POST ACUTE TRANSFER SUMMARY: To Tanya Dumont for Discharge from TCU -Pt discharged from [facility] 11/16/17-11/21/17 -Post Acute Facility Admitted to [facility] TCU 11/21/17 -Admitted for: Stroke (recently lost during TCU stay) Shilpa Victoria RN December 07, 2017 1:30 PM Tanya Dumont [facility] 12/07/2017 1:43 PM Signed I will call next week for patient update/any discharge planning. Tanya Dumont [facility] 12/13/2017 10:18 AM Signed Left message on EDISON Kamara, voicemail to return my call with any updates/discharge planning. I will return call x 1 week if I don't hear back from her. Allergies As of Date: 12/07/2017 Noted Allergy Reaction ASA (SALICYLATES) 04/21/2005 4 - Hives BACTRIM (SULFAMETHOXAZOLE) 07/30/2012 2 - Rash TETANUS VACCINES AND TOXOID 04/21/2005 7 - Swelling Date Reviewed: 11/16/2017 Reviewed by: Wilmar Silva LPN - Fully Assessed Reason for Visit: Transition Of Care [4074] Cmt: Transition Reason For Visit History Recorded Prescriptions as of 12/07/2017 Sig: ONDANSETRON 4 MG DISINTEGRATI* Take 1 tablet by mouth every * PRAVASTATIN 20 MG TABLET Take 1 tablet by mouth daily * POTASSIUM CHLORIDE ER 20 MEQ * Take 1 tablet by mouth twice * METOPROLOL TARTRATE 50 MG TAB* Take 1 tablet by mouth twice * HYDROCHLOROTHIAZIDE 25 MG TAB* Take 1 tablet by mouth once d* PANTOPRAZOLE 20 MG TABLET,DEL* Take 1 tablet by mouth daily * IBUPROFEN 200 MG TABLET Take 1-2 tablets by mouth marco antonio* CALCIUM CARBONATE 600 MG (1,5* Take 1 tablet by mouth twice * GLUCOSAMINE CHONDROITIN MAXIM* Take one(1) tablet two(2) nahomy* THERAPEUTIC MULTIVITAMIN TABL* Take one(1) tablet daily. FISH OIL 500 MG CAPSULE Take one(1) tablet two(2) nahomy* FLAXSEED OIL 1,000 MG CAPSULE Take one(1) tablet daily. Problem List As Of Date 12/07/2017 Noted Resolved BENIGN HYPERTENSION [I10] Hyperlipidemia [E78.5] Scoliosis (and kyphoscoliosis), idiopathic [M41* Disorder of bone and cartilage [M89.9, M94.9] INVALID FOR* OSTEOARTHROS NOS-UNSPEC [M19.90] INVALID FOR* DIVERTICULOSIS OF COLON W/O BLEED [K57.30] INT HEMORRHOID W/O COMPL [K64.8] NONSPECIF SKIN ERUPT NEC [R21] INVALID FOR* ESOPHAGEAL REFLUX [K21.9] INVALID FOR* Rhinitis, chronic [J31.0] INVALID FOR* Counseling and coordination of care [Z71.89] INVALID FOR*12/24/2014 More... Arthritis, multiple joint involvement [M12.9] INVALID FOR* Pure hypercholesterolemia [E78.00] INVALID FOR* Gastroesophageal reflux disease without esophag*INVALID FOR* Pain in joint, multiple sites [M25.50] INVALID FOR* Hypokalemia [E87.6] INVALID FOR* Osteopenia of multiple sites [M85.89] INVALID FOR* Encounter Status:Closed by TANYA DUMONT CMA on 12/07/17 PROGRESS Observed: 12/06/2017 Status: COMPLETED Source: [place] 10:22 AM [facility] REPOSITORY HNO ID: [id number] Author: Mary Garduno (Calendering Machine Operator) Kay Service: (none) Author Type: Nurse Practitioner Type: Progress Notes Filed: 12/06/2017 4:18 PM Note Text: Noted Mary Rivero APRN.MINER PROGRESS Observed: 12/06/2017 Status: COMPLETED Source: [place] 9:49 AM [facility] REPOSITORY HNO ID: [id number] Author: Julien Massey (Rn) Service: (none) Author Type: Registered Nurse Type: Progress Notes Filed: 12/06/2017 4:18 PM Note Text: PRIMARY CARE COORDINATION FOLLOW-UP NOTE Provider Action/FYI 1. Spk with Jenna Lyman RN [facility], Pt is progressing well, receiving PT/OT ST, has almost no deficits, there is no anticipated D/C date yet. 2. Pt just lost her during this SNF stay, was yesterday, she was able to attend. Pt has 2 children that are her support system. 3. Provided Fruit Preserver's phone number, [facility] TCU will call when they have anticipated D/C date. Patient identified by name and date of . YES Spoke to patient [employer]erver plan for next outreach: Follow for D/C needs Signature Sihlpa Victoria RN December 06, 2017 [facility] Observed: 12/06/2017 Status: COMPLETED Source: [place] 12:00 AM [facility] REPOSITORY Patient Outreach (FAMPWS) DENAE PATHAK ([id number]) 1935 F Date Time Provider Department 12/06/17 JULIEN MASSEY (RN) FAMPWS During your visit today, we recorded the following information about you: Shilpa Victoria RN 12/06/2017 4:18 PM Signed PRIMARY CARE COORDINATION FOLLOW-UP NOTE Provider Action/FYI 1. Spk with Jenna Lyman RN [facility], Pt is progressing well, receiving PT/OT ST, has almost no deficits, there is no anticipated D/C date yet. 2. Pt just lost her during this SNF stay, was yesterday, she was able to attend. Pt has 2 children that are her support system. 3. Provided Fruit Preserver's phone number, [facility] TCU will call when they have anticipated D/C date. Patient identified by name and date of . YES Spoke to patient [employer] plan for next outreach: Follow for D/C needs Signature Shilpa Victoria RN December 06, 2017 Mary Rivero APRN.CNP 12/06/2017 4:18 PM Signed Noted Mary Rivero APRN.CNP Allergies As of Date: 12/06/2017 Noted Allergy Reaction ASA (SALICYLATES) 04/21/2005 4 - Hives BACTRIM (SULFAMETHOXAZOLE) 07/30/2012 2 - Rash TETANUS VACCINES AND TOXOID 04/21/2005 7 - Swelling Date Reviewed: 11/16/2017 Reviewed by: Wilmar Silva LPN - Fully Assessed Reason for Visit: [facility] [employer] [employer] [facility] Follow Up [3610] Cmt: [facility] TCU SNF Reason For Visit History Recorded Prescriptions as of 12/06/2017 Sig: ONDANSETRON 4 MG DISINTEGRATI* Take 1 tablet by mouth every * PRAVASTATIN 20 MG TABLET Take 1 tablet by mouth daily * POTASSIUM CHLORIDE ER 20 MEQ * Take 1 tablet by mouth twice * METOPROLOL TARTRATE 50 MG TAB* Take 1 tablet by mouth twice * HYDROCHLOROTHIAZIDE 25 MG TAB* Take 1 tablet by mouth once d* PANTOPRAZOLE 20 MG TABLET,DEL* Take 1 tablet by mouth daily * IBUPROFEN 200 MG TABLET Take 1-2 tablets by mouth marco antonio* CALCIUM CARBONATE 600 MG (1,5* Take 1 tablet by mouth twice * GLUCOSAMINE CHONDROITIN MAXIM* Take one(1) tablet two(2) nahomy* THERAPEUTIC MULTIVITAMIN TABL* Take one(1) tablet daily. FISH OIL 500 MG CAPSULE Take one(1) tablet two(2) nahomy* FLAXSEED OIL 1,000 MG CAPSULE Take one(1) tablet daily. Problem List As Of Date 12/06/2017 Noted Resolved BENIGN HYPERTENSION [I10] Hyperlipidemia [E78.5] Scoliosis (and kyphoscoliosis), idiopathic [M41* Disorder of bone and cartilage [M89.9, M94.9] INVALID FOR* OSTEOARTHROS NOS-UNSPEC [M19.90] INVALID FOR* DIVERTICULOSIS OF COLON W/O BLEED [K57.30] INT HEMORRHOID W/O COMPL [K64.8] NONSPECIF SKIN ERUPT NEC [R21] INVALID FOR* ESOPHAGEAL REFLUX [K21.9] INVALID FOR* Rhinitis, chronic [J31.0] INVALID FOR* Counseling and coordination of care [Z71.89] INVALID FOR*12/24/2014 More... Arthritis, multiple joint involvement [M12.9] INVALID FOR* Pure hypercholesterolemia [E78.00] INVALID FOR* Gastroesophageal reflux disease without esophag*INVALID FOR* Pain in joint, multiple sites [M25.50] INVALID FOR* Hypokalemia [E87.6] INVALID FOR* Osteopenia of multiple sites [M85.89] INVALID FOR* Encounter Status:Closed by SHILPA VICTORIA on 12/06/17 PROGRESS Observed: 11/30/2017 Status: COMPLETED Source: [place] 10:37 AM [facility] REPOSITORY HNO ID: [id number] Author: Julien Massey (Rn) Service: (none) Author Type: Registered Nurse Type: Progress Notes Filed: 12/11/2017 11:29 AM Note Text: PRIMARY CARE COORDINATION FOLLOW-UP NOTE Provider Action/FYI [facility] Pt remains inpt TCU Patient identified by name and date of . YES Signature Shilpa Victoria RN November 30, 2017 CNPTOUTREACH Observed: 11/30/2017 Status: COMPLETED Source: [place] 12:00 AM [facility] REPOSITORY Patient Outreach (FAMPWS) DENAE PATHAK ([id number]) 1935 F Date Time Provider Department 11/30/17 JULIEN MASSEY (RN) FAMPWS During your visit today, we recorded the following information about you: Shilpa Victoria RN 12/11/2017 11:29 AM Signed PRIMARY CARE COORDINATION FOLLOW-UP NOTE Provider Action/FYI [facility] Pt remains inpt TCU Patient identified by name and date of . YES Signature Shilpa Victoria RN November 30, 2017 Allergies As of Date: 11/30/2017 Noted Allergy Reaction ASA (SALICYLATES) 04/21/2005 4 - Hives BACTRIM (SULFAMETHOXAZOLE) 07/30/2012 2 - Rash TETANUS VACCINES AND TOXOID 04/21/2005 7 - Swelling Date Reviewed: 11/16/2017 Reviewed by: Wilmar Silva LPN - Fully Assessed Reason for Visit: [facility] Follow Up [3610] Cmt: [facility] TCU Reason For Visit History Recorded Prescriptions as of 11/30/2017 Sig: ONDANSETRON 4 MG DISINTEGRATI* Take 1 tablet by mouth every * PRAVASTATIN 20 MG TABLET Take 1 tablet by mouth daily * POTASSIUM CHLORIDE ER 20 MEQ * Take 1 tablet by mouth twice * METOPROLOL TARTRATE 50 MG TAB* Take 1 tablet by mouth twice * HYDROCHLOROTHIAZIDE 25 MG TAB* Take 1 tablet by mouth once d* PANTOPRAZOLE 20 MG TABLET,DEL* Take 1 tablet by mouth daily * IBUPROFEN 200 MG TABLET Take 1-2 tablets by mouth marco antonio* CALCIUM CARBONATE 600 MG (1,5* Take 1 tablet by mouth twice * GLUCOSAMINE CHONDROITIN MAXIM* Take one(1) tablet two(2) nahomy* THERAPEUTIC MULTIVITAMIN TABL* Take one(1) tablet daily. FISH OIL 500 MG CAPSULE Take one(1) tablet two(2) nahomy* FLAXSEED OIL 1,000 MG CAPSULE Take one(1) tablet daily. Problem List As Of Date 11/30/2017 Noted Resolved BENIGN HYPERTENSION [I10] Hyperlipidemia [E78.5] Scoliosis (and kyphoscoliosis), idiopathic [M41* Disorder of bone and cartilage [M89.9, M94.9] INVALID FOR* OSTEOARTHROS NOS-UNSPEC [M19.90] INVALID FOR* DIVERTICULOSIS OF COLON W/O BLEED [K57.30] INT HEMORRHOID W/O COMPL [K64.8] NONSPECIF SKIN ERUPT NEC [R21] INVALID FOR* ESOPHAGEAL REFLUX [K21.9] INVALID FOR* Rhinitis, chronic [J31.0] INVALID FOR* Counseling and coordination of care [Z71.89] INVALID FOR*12/24/2014 More... Arthritis, multiple joint involvement [M12.9] INVALID FOR* Pure hypercholesterolemia [E78.00] INVALID FOR* Gastroesophageal reflux disease without esophag*INVALID FOR* Pain in joint, multiple sites [M25.50] INVALID FOR* Hypokalemia [E87.6] INVALID FOR* Osteopenia of multiple sites [M85.89] INVALID FOR* Encounter Status:Closed by SHILPA VICTORIA Mary on 12/11/17 CONSULTATION Observed: 11/29/2017 Status: F Source: [place] 2:55 PM [facility] REPOSITORY [facility] Medical Records Department [address] [place] [address] Consultation 11/18/17 1220 MR#: [id number] Acct: [id number] Name: DENAE PATHAK Rep #: [id number] : 1935 81 From: Jag Rodriguez MD PCP: Aguila Ng DO Status: DIS IN Y Location: [place] [address] Problem List (1) Stroke Status: Acute Qualifiers: CVA mechanism: unspecified Qualified Code(s): I63.9 - Cerebral infarction, unspecified Reason for Consult Date of Consultation: 11/18/17 Reason for Consultation: Stroke, Dizziness History of Present Illness: The patient is a 81 year old CF with PMH HTN, HLD admitted with dizziness. Per patient she started having dizziness about 4 days ago, since last Monday (11/15/17), would feel foggy, lightheaded, had difficulty in walking, had nausea, vomiting, since dizziness persisted she got admitted, found to have acute left cerebellar stroke on MRI brain done on admission. Per patient she lives with her , who is unfortunately is hospitalized at present, ambulates with walker when she is out of the home, denies any frequent falls, does drive and does not need any ADLs. Per patient she is allergic to ASA and has hives when she takes ASA. Denies any focal motor weakness, BAIN, sensory loss, visual disturbances or speech disturbances. Per patient her dizziness has improved at present. [] Past Medical History Past Medical History (Chronic Problems): Chronic Problems HTN (hypertension) (Chronic) Dyslipidemia (Chronic) Allergies aspirin Allergy (Verified 11/16/17 15:13) Hives tetanus immune globulin Allergy (Verified 11/16/17 15:13) Rash Home Medications: Ambulatory Orders Medication Instructions Recorded Surgical History: - - Breast biopsy otherwise unremarkable Lives: Spouse/ Significant Other Smoking Status: Never smoker Tobacco Use: Non-smoker Alcohol: None Drugs: None - *Family History Sibling History Items: - - Gallstones Maternal History Items: No pertinent history Paternal History Items: No pertinent history Review of Systems Constitutional: Reports: - - complete ROS negative except as documented in HPI Patient Problems: Active and Suspected Problems Stroke (Acute) - Physical Exam General: Alert, Oriented x3 HEENT: Normocephalic Neck: Supple Lungs: Clear to auscultation Cardiovascular: Normal S1, Normal S2 Abdomen: Bowel Sounds Present Extremities: No cyanosis Skin: No rashes Musculoskeletal: No Tenderness to Palpation of Joints or Extremities Neurological: - - consious, alert, CN 2-12 grossly intact, Power 5/5 all 4 extremities, no sensory loss, no cerebellar signs, Reflexes + B/L B/S/T/K/A, gait deferred, NIHSS 0 at present, mRS 0 at baseline prior to admission. Psych/Mental Status: Normal Affect Vital Signs Temp Pulse Resp BP Pulse Ox 98.8 F 60 15 141/78 H 95 11/18/17 11:50 11/18/17 11:54 11/18/17 11:50 11/18/17 11:50 11/18/17 11:50 Oxygen Delivery Method Room Air Weight: 58.8 kg Body Mass Index (BMI) 21.6 Intake and Output for Last 24 Hours Intake Total 515 / 1024 1500 / 1500 Output Total 300 / 1050 1550 / 1550 Balance 215 / -26 -50 / -50 Assessment/Plan All Active Problems Stroke (Acute) Hypokalemia (Resolved) Biliary colic (Acute) Biliary calculus (Acute) The patient is a 81 year old CF with PMH HTN, HLD admitted with dizziness. Per patient she started having dizziness about 4 days ago, since last Monday (11/15/17), would feel foggy, lightheaded, had difficulty in walking, had nausea, vomiting, since dizziness persisted she got admitted, found to have acute left cerebellar stroke on MRI brain done on admission. Per patient she lives with her , who is unfortunately is hospitalized at present, ambulates with walker when she is out of the home, denies any frequent falls, does drive and does not need any ADLs. Per patient she is allergic to ASA and has hives when she takes ASA. Denies any focal motor weakness, BAIN, sensory loss, visual disturbances or speech disturbances. Per patient her dizziness has improved at present. Impression Acute left cerebellar infarct (small) Plan -MRI brain images reviewed- small acute/subacute left cerebellar infarct -MRA head/neck reported no hemodynamically significant stenosis or occlusion -On Plavix -Change Lipitor to 40 mg PO q hs -LDL-84, await Hba1c -TTE-EF 60%, normal LA size -Orthostatic vitals negative -Recommend 30 day insurance risk manager -Fall precautions -PT/OT -Stroke risk factors discussed and stroke education provided -Follow up with Neurology in 2-3 weeks as outpatient -Please call with questions if any -Thank you for allowing us to participate in patients care and management I spent 60 minutes taking history, doing physical examination, reviewing medical records, coordinating care and counseling the patient. Code Visit Inpatient E AND M: [id number] Init Hosp L3 11/29/17 1455 <Electronically signed by Jag Rodriguez MD> Date Jag Rodriguez MD Cosigner Signature (if applicable): Date CC: Linnea Rodriguez MD; Aguila Ng DO Signed CBC W/DIFF, AUTOMATED Collected: 11/29/2017 Status: F Source: [place] 5:10 AM [facility] REPOSITORY TYPE CODE TESTS RESULT OUT OF RANGE REFERENCE UNITS LAB L100.1000 4.4-11.0 K/mm3 Normal WBC 6.7 LAB L100.1200 4.2-5.4 M/mm3 Normal RBC 4.74 LAB L100.1300 12.0-15.0 g/dl Normal HGB 14.5 LAB L100.1400 37-47 % Normal HCT 42.5 LAB L100.1500 81-99 fL Normal MCV 89.7 LAB L100.1600 27.0-32.0 pg Normal MCH 30.6 LAB L100.1700 32-36 g/gl Normal MCHC 34.1 LAB L100.1810 11.6-14.6 % Normal RDW CV 13.2 LAB L100.1820 35.1-43.9 fl Normal RDW SD 43.0 LAB L100.1900 150-450 K/mm3 Normal PLT 265 LAB L100.2000 6.2-12.0 fl Normal MPV 11.4 LAB L100.2100 47-70 % Normal NEUT% 57.1 LAB L100.2200 19-41 % Normal LY% 25.9 LAB L100.2300 0-10 % Normal MONO% 8.9 LAB L100.2400 0-5 % High EO% 7.1 LAB L100.2500 0-1 % Normal BASO% 0.6 LAB L100.2550 0.0-0.9 % Normal IM GRAN % 0.400 Result Comment: IG% - Immature Granulocytes (promyelocytes, myelocytes and metamyelocytes) > 1% indicates that a LEFT SHIFT is Present. LAB L100.2620 2.0-7.7 X10 3/uL Normal Absolute Neut 3.8 LAB L100.2720 0.83-4.51 X10 3/ul Normal Absolute Lymph 1.74 Performed By: #### L100.0100 #### [facility] [address] [place], [place], [address] BASIC METABOLIC Collected: 11/29/2017 Status: F Source: [place] PROFILE (BMP) 5:10 AM [facility] REPOSITORY TYPE CODE TESTS RESULT OUT OF RANGE REFERENCE UNITS LAB L501.0100 74-106 mg/dL Normal GLU 88 Result Comment: Please note revised GLUCOSE reference range effective 2017. LAB L501.1000 7-18 mg/dL Normal BUN 9 LAB L501.1100 0.55-1.02 mg/dL Normal CREAT,SERUM 0.72 Result Comment: The validity of the calculated GFR AND GFRAA in patients over 70 years has not been determined. Clinical correlation is essential. LAB L501.1110 >60 mL/min Normal EST GFR 83 Result Comment: Non- GFR Calc LAB L501.1115 >60 mL/min Normal EST GFR - AA 100 Result Comment: GFR Calc LAB L501.1255 ml/min Normal Estimated CRCL 39.03 LAB L501.1300 10-20 RATIO Normal BUN/CRE 12.5 LAB L501.2200 8.5-10 mg/dL Low .1 CA 8.4 LAB L501.5300 136-14 mmol/L Normal 5 NA 138 LAB L501.5600 3.5-5. mmol/L Normal 1 K 4.0 LAB L501.5900 98-107 mmol/L Normal CL 102 LAB L501.6100 21.0-3 mmol/L Normal 2.0 CO2 29.0 LAB L501.6200 5-15 Normal GAP 7 Performed By: #### L500.2500 #### [facility] [address] [place], [place], [address] CBC W/DIFF, AUTOMATED Collected: 11/22/2017 Status: F Source: [place] 6:26 AM [facility] REPOSITORY TYPE CODE TESTS RESULT OUT OF RANGE REFERENCE UNITS LAB L100.1000 4.4-11.0 K/mm3 Normal WBC 6.0 LAB L100.1200 4.2-5.4 M/mm3 Normal RBC 4.72 LAB L100.1300 12.0-15.0 g/dl Normal HGB 13.9 LAB L100.1400 37-47 % Normal HCT 42.3 LAB L100.1500 81-99 fL Normal MCV 89.6 LAB L100.1600 27.0-32.0 pg Normal MCH 29.4 LAB L100.1700 32-36 g/gl Normal MCHC 32.9 LAB L100.1810 11.6-14.6 % Normal RDW CV 13.1 LAB L100.1820 35.1-43.9 fl Normal RDW SD 42.7 LAB L100.1900 150-450 K/mm3 Normal PLT 265 LAB L100.2000 6.2-12.0 fl Normal MPV 11.1 LAB L100.2100 47-70 % Normal NEUT% 52.5 LAB L100.2200 19-41 % Normal LY% 28.4 LAB L100.2300 0-10 % High MONO% 11.3 LAB L100.2400 0-5 % High EO% 6.6 LAB L100.2500 0-1 % Normal BASO% 1.0 LAB L100.2550 0.0-0.9 % Normal IM GRAN % 0.200 Result Comment: IG% - Immature Granulocytes (promyelocytes, myelocytes and metamyelocytes) > 1% indicates that a LEFT SHIFT is Present. LAB L100.2620 2.0-7.7 X10 3/uL Normal Absolute Neut 3.1 LAB L100.2720 0.83-4.51 X10 3/ul Normal Absolute Lymph 1.69 Performed By: #### L100.0100 #### [facility] [address] [facility] [place], [place], [address] BASIC METABOLIC Collected: 11/22/2017 Status: F Source: [place] PROFILE (BMP) 6:26 AM [facility] REPOSITORY TYPE CODE TESTS RESULT OUT OF RANGE REFERENCE UNITS LAB L501.0100 74-106 mg/dL Normal GLU 93 Result Comment: Please note revised GLUCOSE reference range effective 2017. LAB L501.1000 7-18 mg/dL Normal BUN 10 LAB L501.1100 0.55-1.02 mg/dL Normal CREAT,SERUM 0.67 Result Comment: The validity of the calculated GFR AND GFRAA in patients over 70 years has not been determined. Clinical correlation is essential. LAB L501.1110 >60 mL/min Normal EST GFR 90 Result Comment: Non- GFR Calc LAB L501.1115 >60 mL/min Normal EST GFR - AA 109 Result Comment: GFR Calc LAB L501.1255 ml/min Normal Estimated CRCL 39.03 LAB L501.1300 10-20 RATIO Normal BUN/CRE 15.0 LAB L501.2200 8.5-10 mg/dL Normal .1 CA 8.5 LAB L501.5300 136-14 mmol/L Normal 5 NA 136 LAB L501.5600 3.5-5. mmol/L Normal 1 K 4.0 LAB L501.5900 98-107 mmol/L Normal CL 102 LAB L501.6100 21.0-3 mmol/L Normal 2.0 CO2 25.0 LAB L501.6200 5-15 Normal GAP 9 Performed By: #### L500.2500 #### [facility] [address] [facility] [address] [place], [place], [address] HISTORY AND PHYSICAL Observed: 11/21/2017 Status: F Source: BRIAN EXAM 5:35 PM [facility] REPOSITORY [facility] Medical Records Department [address] [place] [address] History and Physical 11/21/17 1707 MR#: [id number] Acct: [id number] Name: DENAE PATHAK Rep #: [id number] : 1935 81 From: Clint Lucas MD PCP: Aguila Ng, Status: ADM IN Y Location: [facility]CU [place] [address] Problem List (1) Dizziness Status: Acute (2) Nausea and vomiting Status: Acute (3) Near syncope Status: Acute (4) Cerebellar stroke, acute Status: Acute (5) Hyperlipidemia Status: Chronic (6) GERD (gastroesophageal reflux disease) Status: Chronic (7) Hypokalemia Status: Acute (8) HTN (hypertension) Status: Chronic History of Present Illness Date of Admission: 11/21/17 Chief Complaint: Here for rehabilitation, strengthening, prior to discharge home. The patient is a 81 year old Female with below past medical history presented to [facility] Emergency Department 11/16/2017 with dizziness. 11/16/2017 CT brain stable chronic ischemic, atrophic changes. 11/16/2017 EKG sinus rhythm with 1st degree AV block, left axis deviation. Dizziness, nausea, vomiting, lightheadedness. Near syncope, crawled into house. IV fluids, Zofran given. Chest X-ray negative. CBC okay, K 3.3, glucose 138, Troponin negative. 11/16/2017 Admit to Hospital. MRI brain to evaluate posterior circulation stroke. Replace potassium chloride. 11/17/2017 MRI brain showed acute small infarctions of cerebellum, consider embolic source. 11/17/2017 Echo Normal LV size. Left ventricular systolic function normal. EF 60% Stage 1 diastolic dysfunction. 11/17/2017 MRA head normal. 11/17/2017 MRA neck no hemodynamically significant stenosis. 11/18/2017 Dr. Rodriguez recommended Plavix, Lipitor 40MG at bedtime, [address] Dr. Whitlock will read insurance risk manager. 11/21/2017 Admit to TCU for rehabilitation, strengthening, prior to discharge home. 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 Lives: Spouse/ Significant Other Smoking Status: Never smoker Tobacco Use: Non-smoker Alcohol: None Drugs: None - *Family History Sibling History Items: - - Gallstones Maternal History Items: No pertinent history Paternal History Items: No pertinent history Review of Systems Constitutional: Denies: Chills, Fever, Weight Change HEENT: Denies: Head Aches, Sinus Congestion, Sinus Drainage Cardiovascular: Denies: Chest Pain, Palpitations Respiratory: Denies: Cough, Shortness of breath at rest, Sputum production Gastrointestinal: Denies: Abdominal Pain, Nausea, Vomiting Genitourinary: Denies: Dysuria Musculoskeletal: Denies: Joint Pain, Joint Tenderness Skin: Denies: Rash, Wounds Neurological: Denies: Numbness, Tingling, Focal weakness Psychiatric: Denies: Anxiety, Depression, Homicidal Ideations, Suicidal Ideations Hematologic/ Lymphatic: Denies: Easy Bruising, Easy Bleeding VTE Information - Inpt Only VTE Present on Admission: No VTE Mechan Device Prophylaxis: Knee High YEIMY Hose VTE Pharm Prophylaxis ordered?: Yes Patient Problems: Active and Suspected Problems Dizziness (Acute) Nausea and vomiting (Acute) Near syncope (Acute) Cerebellar stroke, acute (Acute) - Physical Exam General: Alert, Oriented x3, Cooperative HEENT: Atraumatic, PERRLA, EOMI, Normocephalic Neck: Supple, No JVD, Negative Carotid Bruits Lungs: Clear to auscultation, Normal air movement Cardiovascular: Regular rate, No murmurs Abdomen: Bowel Sounds Present, Soft, Non Tender Extremities: No edema, Capillary Refill Less than 3 Seconds Skin: No rashes, No breakdown Musculoskeletal: No Tenderness to Palpation of Joints or Extremities Neurological: Cranial nerves II-XII grossly intact Psych/Mental Status: Normal Affect, Appropriate Vital Signs Temp Pulse Resp BP Pulse Ox 97.7 F L 54 L 16 118/59 L 93 11/21/17 15:06 11/21/17 15:06 11/21/17 15:06 11/21/17 15:06 11/21/17 15:06 Oxygen Delivery Method Room Air Weight: 58.513 kg Body Mass Index (BMI) 21.4 Assessment/Plan All Active Problems Stroke (Acute) Dizziness (Acute) Nausea and vomiting (Acute) Near syncope (Acute) Cerebellar stroke, acute (Acute) Hypokalemia (Acute) Biliary colic (Acute) Biliary calculus (Acute) 81 year old female with below past medical history hospitalized for dizziness secondary to acute small cerebellar infarcts, complicated by hypokalemia, admitted to TCU with debility, here for rehabilitation, strengthening, prior to discharge home with spouse. * Debility - PT/OT. * Pain - Tylenol 1000MG Q8H PRN mild pain. * Bowel - Miralax 17GM daily, Senna/colace 1 tablet BID, Dulcolax 10MG PO daily PRN. * Pneumonia vaccination - Administer Prevnar 13 and/or Pneumovax 23 as necessary. * DVT prophylaxis - Lovenox 40MG SC daily. * Acute cerebellar stroke - Plavix 75MG daily, 30 day insurance risk manager to be read by Dr. Whitlock. * Hyperlipidemia - Atorvastatin 40MG QHS. * Calcium deficiency - Calcium with D 1 tablet BID. * Hypertension - Metoprolol 50MG twice daily. * Nutrition - MVI daily. * GERD - Pantoprazole 20MG daily. 11/21/17 0010 <Electronically signed by Clint Lucas MD> Date Clint Lucas MD Cosign Signature: Date (if applicable) CC: Aguila Ng DO; Clint Lucas MD Signed DISCHARGE SUMMARY Observed: 11/21/2017 Status: F Source: BRIAN 3:28 PM [facility] REPOSITORY [facility] Medical Records Department [address] [place] [address] Discharge Summary 11/21/17 1010 MR#: [id number] Acct: [id number] Name: DENAE PATHAK Rep #: [id number] : 1935 81 From: Marsha Clifton MD PCP: Aguila Ng DO Status: DIS IN Y Location: [place] [id number] Discharge Date and Diagnosis Date of Admission: 11/16/17 Date of Discharge: 11/21/17 - Primary Discharge Diagnosis Active and Suspected Problems Stroke (Acute) - Secondary Discharge Diagnosis Chronic Problems HTN (hypertension) (Chronic) Dyslipidemia (Chronic) Hospital Course and Treatment Imaging Results: Clinical Impression(s) from Imaging Studies Brain CT 11/16/17 15:20 IMPRESSION: Stable chronic ischemic and atrophic changes. No acute intracranial abnormality. Electronically Signed: Casimiro Tavares at 16:05 EDT Tel , Service support , Chest X-Ray 11/16/17 15:30 IMPRESSION: No acute abnormality is seen. Electronically Signed: Carl Wynn MD at 15:44 EDT Tel [phone], Service support , Brain MRI 11/17/17 06:30 IMPRESSION: Acute very small infarctions of the cerebellum. Consider embolic etiologies. N.B. : The above information has been verbally conveyed by Francois Colbert MD to [facility]- In-Patient RN, on 11/17/2017 12:36:02 (ET). Electronically Signed: Francois Colbert MD at 10:51 EDT Tel , Service support , N.B. : The above information has been verbally conveyed by Francois Colbert MD to [facility]- In-Patient RN, on 11/17/2017 12:36:02 (ET). Head MRA 11/17/17 17:24 IMPRESSION: Normal MRA of the head Electronically Signed: Dennis Linton MD at 22:52 EDT , Service support , Neck MRA 11/17/17 17:24 IMPRESSION: Atherosclerotic disease without evidence for hemodynamically significant stenosis of the carotids utilizing NASCET criteria.. Electronically Signed: Philippe Rosa MD at 21:21 EDT , Service support , Neurology Operations: None Procedures: 2-D Echocardiogram Summary of Care Provided: 81-year-old female with past medical history of hypertension, hyperlipidemia comes in with complaints of severe dizziness, nausea and vomiting. 1. Intractable dizziness/ataxic gait due to acute cerebellar stroke, patient is allergic to aspirin, on Plavix, on atorvastatin 40 mg p.o., 2D echo is normal MRA head and neck shows atherosclerosis of the carotid with no hemodynamically significant stenosis, discharged to SNF on 30-day event monitor. Dr Whitlock will read. 2. Essential hypertension, on home metoprolol regimen 3. Hypokalemia, resolved, 4. Hyperlipidemia, total cholesterol is 159, LDL is 84, HDL is 60, on atorvastatin 40mg po daily. 5. GERD, on PPI Discharge Diet: No Restrictions, Low fat/ Low Cholesterol, 2000 mg Sodium Diet Discharge Activity: Return to Normal Activity Home Medications: Medications to take at Discharge Metoprolol Tartrate [Lopressor (beta meghana)] 50 mg PO BID 05/13/14 Calcium Carbonate/Vitamin D3 [Caltrate 600 Plus D3 Tablet] 1 each PO BID 11/16/17 Gluc Fritz/Chondro Fritz A/Vit C/Mn [Glucosamine-Chondroitin Cap] 2 each PO DAILY 11/16/17 Multivitamin [Multiple Vitamins] 1 each PO DAILY 11/16/17 Omeprazole Magnesium [Prilosec Otc] 20 mg PO DAILY 11/16/17 Atorvastatin Calcium [Lipitor] 40 mg PO QHS 11/21/17 Clopidogrel Bisulfate [Plavix] 75 mg PO DAILY 11/21/17 Enoxaparin [Lovenox] 40 mg SC DAILY@1000 11/21/17 Mag Hydrox/Al Hydrox/Simeth [Mylanta II] 15 ml PO Q6H PRN PRN udc 11/21/17 Primary Care Physician: Aguila Beebe DO [Primary Care Provider] - Please follow up with your Primary Care Physician in: within 2 weeks Please Follow Up With: Jag Rodriguez MD When: in 2-3 weeks Disposition: Acute care Hospital Minutes spent on discharge:: 45 Patient Condition:: Stable Medical Necessity - Tobacco Use Smoking Status: Never smoker Tobacco Use: Non-smoker Meaningful Use Info Meaningful Use Diagnoses (Choose all that apply): Ischemic CVA - CVA Therapy Assessed for PT,OT and/or ST?: Yes - Ischemic Stroke Antithrombotic order at d/c?: Yes Dx of Atrial fib/flutter?: No Anticoagulant at discharge?: No Reason anticoagulant not ordered: Treatment not Indicated Statins at discharge?: Yes Primary Dx Acute Ischemic CVA?: Yes IV tPA ordered during stay?: No Reason IV t-PA not ordered: Treatment Refused by Pt Code Visit Inpatient E AND M: [id number] Disch Hosp 11/21/17 1528 <Electronically signed by Marsha Clifton MD> Date Marsha Clifton MD Cosigner Signature (if applicable): Date CC: Marsha Clifton MD; Aguila Ng DO Signed TRANSFER TO [facility] Observed: 11/21/2017 Status: F Source: [facility] 10:10 [facility] REPOSITORY [facility] Medical Records Department [address] [place] [address] [facility] Care MR#: [id number] Acct: [id number] Name: DENAE PATHAK Rep #: [id number] : 1935 81 From: Marsha Clifton MD PCP: Aguila Ng DO Status: ADM IN DENAE PATHAK (Patient) (Health Ins. Claim No.) (Day of Discharge to Facility) Certification of patient admission REQUIRED AT TIME OF ADMISSION. I CERTIFY THAT POST-HOSPITAL ECF SERVICES ARE REQUIRED TO BE GIVEN ON AN IN-PATIENT BASIS BECAUSE OF THE ABOVE NAMED PATIENT'S NEED FOR USP CARE ON A CONTINUING BASIS FOR THE CONDITION(S) FOR WHICH HE/SHE WAS RECEIVING IN-PATIENT HOSPITAL SERVICES PRIOR TO HIS/HER TRANSFER TO THE [facility]. 11/21/17 1010 <Electronically signed by Marsha Clifton MD> Date Marsha Clifton MD - Diet Cardiac diet - Routine Orders/Code Status Routine Lab Work: CBC - within 1 week, BMP - within 1 week Code Status: Full Code - Therapies Physical Therapy: Eval and Treat Occupational Therapy: Eval and Treat - Allergies/Procedures Done in Hospital Allergies/Adverse Reactions: Allergies aspirin Allergy (Verified 11/16/17 15:13) Hives tetanus immune globulin Allergy (Verified 11/16/17 15:13) Rash Procedures: 2-D Echocardiogram - Type of Care/Length of Stay Estimated LOS: Convalescent Care Less Than 30 days Type of Care Needed: Skilled Rehab Potential: Good Prognosis: Good - Additional Orders/Day of Discharge Day of Discharge: 11/21/17 - Follow Up Care Primary Care Physician: Aguila Beebe DO [Primary Care Provider] - Please follow up with your Primary Care Physician in: within 2 weeks Please Follow Up With: Jag Rodriguez MD When: in 2-3 weeks 11/21/17 1010 <Electronically signed by Marsha Clifton MD> Date Marsha Clifton MD CC: Aguila Ng DO; Sudeep Sterling MD Signed CBC W/DIFF, AUTOMATED Collected: 11/21/2017 Status: F Source: BRIAN 5:05 [facility] REPOSITORY TYPE CODE TESTS RESULT OUT OF RANGE REFERENCE UNITS LAB L100.1000 4.4-11.0 K/mm3 Normal WBC 7.0 LAB L100.1200 4.2-5.4 M/mm3 Normal RBC 4.76 LAB L100.1300 12.0-15.0 g/dl Normal HGB 14.2 LAB L100.1400 37-47 % Normal HCT 42.5 LAB L100.1500 81-99 fL Normal MCV 89.3 LAB L100.1600 27.0-32.0 pg Normal MCH 29.8 LAB L100.1700 32-36 g/gl Normal MCHC 33.4 LAB L100.1810 11.6-14.6 % Normal RDW CV 13.1 LAB L100.1820 35.1-43.9 fl Normal RDW SD 42.8 LAB L100.1900 150-450 K/mm3 Normal PLT 247 LAB L100.2000 6.2-12.0 fl Normal MPV 11.0 LAB L100.2100 47-70 % Normal NEUT% 52.1 LAB L100.2200 19-41 % Normal LY% 31.4 LAB L100.2300 0-10 % Normal MONO% 8.1 LAB L100.2400 0-5 % High EO% 7.2 LAB L100.2500 0-1 % Normal BASO% 0.9 LAB L100.2550 0.0-0.9 % Normal IM GRAN % 0.300 Result Comment: IG% - Immature Granulocytes (promyelocytes, myelocytes and metamyelocytes) > 1% indicates that a LEFT SHIFT is Present. LAB L100.2620 2.0-7.7 X10 3/uL Normal Absolute Neut 3.6 LAB L100.2720 0.83-4.51 X10 3/ul Normal Absolute Lymph 2.18 Performed By: #### L100.0100 #### [facility] [address] [place], [place] [address]all [facility]. [place], [place], [address] BASIC METABOLIC Collected: 11/21/2017 Status: F Source: [place] PROFILE (BMP) 5:05 AM [facility] REPOSITORY TYPE CODE TESTS RESULT OUT OF RANGE REFERENCE UNITS LAB L501.0100 74-106 mg/dL Normal GLU 92 Result Comment: Please note revised GLUCOSE reference range effective 2017. LAB L501.1000 7-18 mg/dL Normal BUN 10 LAB L501.1100 0.55-1.02 mg/dL Normal CREAT,SERUM 0.66 Result Comment: The validity of the calculated GFR AND GFRAA in patients over 70 years has not been determined. Clinical correlation is essential. LAB L501.1110 >60 mL/min Normal EST GFR 92 Result Comment: Non- GFR Calc LAB L501.1115 >60 mL/min Normal EST GFR - AA 111 Result Comment: GFR Calc LAB L501.1255 ml/min Normal Estimated CRCL 39.03 LAB L501.1300 10-20 RATIO Normal BUN/CRE 15.2 LAB L501.2200 8.5-10 mg/dL Low .1 CA 8.3 LAB L501.5300 136-14 mmol/L Normal 5 NA 137 LAB L501.5600 3.5-5. mmol/L Normal 1 K 4.2 LAB L501.5900 98-107 mmol/L Normal CL 103 LAB L501.6100 21.0-3 mmol/L Normal 2.0 CO2 28.0 LAB L501.6200 5-15 Normal GAP 6 Performed By: #### L500.2500 #### [facility] [address] [facility] [place], [address] 12 LEAD ELECTROCARDIOGRAM Observed: 11/20/2017 Status: F Source: [place] 3:01 PM [facility] REPOSITORY [facility] Cardiovascular Services [address] [place] [address] 12 Lead EKG 11/16/17 1529 MR#: [id number] Acct: [id number] Name: HERNESTO PATHAKSivakumar Hargrove Rep #: [id number] : 1935 81 From: Juwan Whitlock MD Attending Dr: Marsha Clifton MD Status: ADM IN Ordering Dr: Kori Hartley MD Date: 11/16/17 Location: [facility] Sex: F C Admitted: 11/17/17 Test Reason : DYSRHYTHMIA Blood Pressure : / mmHG Vent. Rate : 080 BPM Atrial Rate : 080 BPM P-R Int : 258 ms QRS Dur : 086 ms QT Int : 390 ms P-R-T Axes : 064 -30 026 degrees QTc Int : 449 ms Sinus rhythm with 1st degree A-V block Left axis deviation Abnormal ECG Confirmed by JUWAN WHITLOCK MD ([id number]), design editor ERNESTO PATHAK ([id number]) on 11/20/2017 3:01:19 PM Referred By: MARLYN Confirmed By:JUWAN WHITLOCK MD 11/20/17 1501 Date Juwan Whitlock MD CC: Kori Hartley MD; Marhsa Clifton MD; Aguila Ng DO Signed HEMOGLOBIN A1C Collected: 11/18/2017 Status: F Source: BRIAN 12:35 PM [facility] REPOSITORY TYPE CODE TESTS RESULT OUT OF RANGE REFERENCE UNITS LAB L501.9985 4.2-6.3 % Normal HGB A1C 6.0 Performed By: #### L501.9985 #### [facility] [address] [place], [address] MRA NECK WITH AND W/O Observed: 11/17/2017 Status: F Source: BRI[place] CONTRAST 5:27 PM [facility] REPOSITORY [facility] Imaging Services [address] [place] [address] MRA Neck WITH and W/O Contrast MR#: [id number] Acct: [id number] Name: DENAE PATHAK Delvin Rep #: [id number] : 1935 F 81 From: Philippe Rosa MD PCP: Aguila Ng DO Status: ADM IN Study: MRA Neck WITH and W/O Contrast Date of Exam: 11/17/17 Exam# [id number] Ordering Dr: Marsha Clifton MD STUDY: MRA NECK WITH AND WITHOUT CONTRAST REASON FOR EXAM: Female, 81 years old. CVA TECHNIQUE: 3-D ukyq-em-oasbks (TOF) imaging was performed in an 1.5 T MRI scanner. 6 ml of Gadavist was administered for the contrast enhanced images. COMPARISON: None. FINDINGS: RIGHT CAROTID ARTERIES: Normal right common carotid artery (CCA). Mild plaquing of the right common carotid bulb. Normal origin of the right internal carotid (ICA) artery without a hemodynamically significant stenosis. Normal visualized cervical portion of the right internal carotid artery. Normal origin of the right external carotid artery (ECA). LEFT CAROTID ARTERIES: Normal left common carotid artery (CCA). Mild plaquing of the left common carotid bulb. Normal origin of the left internal carotid (ICA) artery without a hemodynamically significant stenosis. Normal visualized cervical portion of the left internal carotid artery. Normal origin of the left external carotid artery (ECA). VERTEBRAL ARTERIES: Normal antegrade flow within the bilateral vertebral artery. There is diffuse segmental narrowing of the distal right vertebral. MRI/MRA Neck WITH and W/O Contrast IMPRESSION: Atherosclerotic disease without evidence for hemodynamically significant stenosis of the carotids utilizing NASCET criteria.. Electronically Signed: Philippe Rosa MD at 21:21 EDT , Service support , CC: Marsha Clifton MD; Aguila Ng DO Paraeducator: Signed MRA HEAD ONLY WITHOUT Observed: 11/17/2017 Status: F Source: [place] CONTRAST 5:27 PM [facility] REPOSITORY [facility] Imaging Services [address] [place] [address] MRA Head ONLY without Contrast MR#: [id number] Acct: [id number] Name: DENAE PATHAK Rep #: [id number] : 1935 F 81 From: Dennis Linton MD PCP: Aguila Ng DO Status: ADM IN Study: MRA Head ONLY without Contrast Date of Exam: 11/17/17 Exam# [id number] Ordering Dr: Marsha Clifton MD STUDY: MRA OF THE HEAD WITHOUT CONTRAST REASON FOR EXAM: Female, 81 years old. CVA and dizziness TECHNIQUE: 3-D ayag-am-bkerwg (TOF) imaging was performed with MIPs. The study was performed unenhanced. COMPARISON: MR brain from today FINDINGS: Normal bilateral petrous carotid arteries. Normal right cavernous carotid artery with a normal supraclinoid bifurcation. Normal left cavernous carotid artery with a normal supraclinoid bifurcation. Normal right A1 segments of the anterior cerebral artery. Normal left A1 segments of the anterior cerebral artery. There is non-visualization of the anterior communicating artery (ACOM). Normal bilateral A2 segments of the anterior cerebral arteries. Normal right M1 and M2 segments of the middle cerebral arteries, with a normal M1 bifurcation. Normal left M1 and M2 segments of the middle cerebral arteries, with a normal M1 bifurcation. There is non-visualization of the right posterior communicating artery (PCOM). There is non-visualization of the left posterior communicating artery (PCOM). Normal bilateral vertebral arteries. Normal basilar artery with a normal basilar bifurcation. The visualized bilateral superior cerebellar (SCA) arteries are normal. Normal bilateral P1, P2 and visualized P3 segments of the posterior cerebral arteries. There is no demonstrated aneurysm of the tunica-biloxi of [place]. There is no major vessel occlusion or hemodynamically significant stenosis. There is no demonstrated abnormality of the visualized brain. MRI/MRA Head ONLY without Contrast IMPRESSION: Normal MRA of the head Electronically Signed: Dennis Linton MD at 22:52 EDT , Service support , CC: Marsha Clifton MD; Aguila Ng DO Paraeducator: Signed ECHOCARDIOGRAM COMPLETE Observed: 11/17/2017 Status: F Source: [place] 5:01 PM [facility] REPOSITORY [facility] Cardiovascular Services [address] [place] [address] Echo Complete 11/17/17 0838 MR#: [id number] Acct: [id number] Name: DENAE PATHAK Rep #: [id number] : 1935 81 From: Juwan Whitlock MD Attending Dr: Marsha Clifton MD Status: ADM IN Ordering Dr: Luis Felipe Miller MD Date: 11/16/17 Location: [facility] Sex: F C Admitted: 11/17/17 Reason For Study: Arrhythmia Procedure This was a 2D Doppler, Color Flow transthoracic echocardiogram. Exam performed portable in patient room. Left Ventricle Normal LV size. Left ventricular systolic function is normal. The estimated ejection fraction is 60 %. Transmitral diastolic flow velocities suggest mild (stage 1) diastolic dysfunction (reversed pattern). No regional wall motion abnormalities noted. Right Ventricle Normal RV size. Normal systolic function. Atria Normal left atrium. Normal right atrium. Mitral Valve Mild diffuse mitral valve thickening. Mild (1+) eccentric mitral valve insufficiency. Tricuspid Valve Normal tricuspid valve. Mild to moderate (1-2+) tricuspid valve insufficiency. Pulmonary artery systolic pressure is 45 mmHg. Aortic Valve Trisinus/trileaflet aortic valve. Mild focal aortic valve calcification. Peak aortic valve gradient 21 mmHg. Mean aortic valve gradient 12 mmHg. Mild aortic stenosis. Pulmonic Valve Normal pulmonic valve. Great Vessels Calcified aortic root. The pulmonary artery is normal size. Normal inferior vena cava. Pericardium/Pleural No pericardial effusion. Medication Performed a rapid injection of agitated mix of 9 cc saline and 1cc air to assess for atrial septal defect. MMode/2D Measurements AND Calculations LVIDd: 3.7 cm IVSd: 0.85 cm LVOT diam: 2.1 cm LVIDs: 2.5 cm LVPWd: 0.85 cm LVOT area: 3.4 cm2 RVDd: 3.9 cm FS: 31.3 % Ao root diam: 2.9 cm LAV(MOD-bp): 49.6 ml EDV(MOD-sp4): 48.8 ml LAV(MOD-bp) Indexed: 30.6 ml/m2 ESV(MOD-sp4): 13.3 ml LAV(MOD-sp2): 47.5 ml EF(MOD-sp4): 72.6 % LAV(MOD-sp4): 49.6 ml SV(MOD-sp4): 35.4 ml LA A4 area: 18.9 cm2 RA A4 area: 16.9 cm2 Doppler Measurements AND Calculations MV E max domitila: 85.0 cm/sec Lat Peak E' Domitila: 7.5 cm/sec Med Peak E' Domitila: 4.6 cm/sec MV A max domitila: 117.8 cm/sec E/E' lat: 11.4 E/E' med: 18.6 MV E/A: 0.72 Ao V2 max: 232.1 cm/sec LV V1 max: 97.3 cm/sec SV(LVOT): 75.1 ml Ao max P.5 mmHg LV V1 max P.8 mmHg Ao V2 mean: 163.9 cm/sec LV V1 mean P.1 mmHg Ao mean P.8 mmHg LV V1 mean: 69.9 cm/sec Ao V2 VTI: 52.9 cm LV V1 VTI: 22.2 cm DYLAN(I,D): 1.4 cm2 DYLAN(V,D): 1.4 cm2 PA V2 max: 88.4 cm/sec TR max domitila: 313.5 cm/sec TR max P.3 mmHg Interpretation Summary Normal LV size. Left ventricular systolic function is normal. The estimated ejection fraction is 60 %. Transmitral diastolic flow velocities suggest mild (stage 1) diastolic dysfunction (reversed pattern). Mild focal aortic valve calcification. Mild aortic stenosis. Ordering Physician: Luis Felipe Miller Performed By: Sylvia Ortiz, JOOCS, RVT 11/17/17 170 Date Juwan Whitlock MD CC: Marsha Clifton MD; Aguila Ng DO; Luis Felipe Miller MD Date Dictated: 11/17/17837 Date Transcribed: 11/17/171699 Paraeducator: Signed CBC W/DIFF, AUTOMATED Collected: 11/17/2017 Status: F Source: [place] 5:20 [facility] REPOSITORY TYPE CODE TESTS RESULT OUT OF RANGE REFERENCE UNITS LAB L100.1000 4.4-11.0 K/mm3 Normal WBC 6.3 LAB L100.1200 4.2-5.4 M/mm3 Normal RBC 4.74 LAB L100.1300 12.0-15.0 g/dl Normal HGB 14.3 LAB L100.1400 37-47 % Normal HCT 42.2 LAB L100.1500 81-99 fL Normal MCV 89.0 LAB L100.1600 27.0-32.0 pg Normal MCH 30.2 LAB L100.1700 32-36 g/gl Normal MCHC 33.9 LAB L100.1810 11.6-14.6 % Normal RDW CV 13.4 LAB L100.1820 35.1-43.9 fl Normal RDW SD 43.5 LAB L100.1900 150-450 K/mm3 Normal PLT 262 LAB L100.2000 6.2-12.0 fl Normal MPV 11.3 LAB L100.2100 47-70 % Normal NEUT% 60.5 LAB L100.2200 19-41 % Normal LY% 24.9 LAB L100.2300 0-10 % Normal MONO% 10.0 LAB L100.2400 0-5 % Normal EO% 3.8 LAB L100.2500 0-1 % Normal BASO% 0.5 LAB L100.2550 0.0-0.9 % Normal IM GRAN % 0.300 Result Comment: IG% - Immature Granulocytes (promyelocytes, myelocytes and metamyelocytes) > 1% indicates that a LEFT SHIFT is Present. LAB L100.2620 2.0-7.7 X10 3/uL Normal Absolute Neut 3.8 LAB L100.2720 0.83-4.51 X10 3/ul Normal Absolute Lymph 1.57 Performed By: #### L100.0100 #### [facility] [address] [place], [place], [address] COMPREHENSIVE METABOLIC Collected: 11/17/2017 Status: F Source: [facility] 5:20 AM [facility] REPOSITORY TYPE CODE TESTS RESULT OUT OF RANGE REFERENCE UNITS LAB L501.0100 74-106 mg/dL Normal GLU 99 Result Comment: Please note revised GLUCOSE reference range effective 2017. LAB L501.1000 7-18 mg/dL Normal BUN 8 LAB L501.1100 0.55-1.02 mg/dL Normal CREAT,SERUM 0.64 Result Comment: The validity of the calculated GFR AND GFRAA in patients over 70 years has not been determined. Clinical correlation is essential. LAB L501.1110 >60 mL/min Normal EST GFR 94 Result Comment: Non- GFR Calc LAB L501.1115 >60 mL/min Normal EST GFR - AA 113 Result Comment: GFR Calc LAB L501.1255 ml/min Normal Estimated CRCL 37.45 LAB L501.1300 10-20 RATIO Normal BUN/CRE 12.4 LAB L501.1500 6.4-8. g/dL Normal 2 T PROT 7.0 LAB L501.1800 3.2-5. g/dL Normal 0 ALB 3.3 LAB L501.1950 2.2-4. g/dL Normal 2 GLOB 3.7 LAB L501.2000 0.9-2. RATIO Normal 4 A/G 0.9 LAB L501.2200 8.5-10 mg/dL Low .1 CA 8.4 LAB L501.4100 15-37 U/L Normal AST 20 LAB L501.4305 45-117 U/L Normal ALK P 56 LAB L501.4405 13-56 U/L Normal ALT 22 LAB L501.4600 0.20-1 mg/dL Normal .00 T BILI 0.60 LAB L501.5300 136-14 mmol/L Normal 5 NA 138 LAB L501.5600 3.5-5. mmol/L Normal 1 K 4.0 LAB L501.5900 98-107 mmol/L Normal CL 105 LAB L501.6100 21.0-3 mmol/L Normal 2.0 CO2 26.0 LAB L501.6200 5-15 Normal GAP 7 Performed By: #### L500.4050 #### [facility] [address] [facility] [place], [place], [address] LIPID PROFILE Collected: 11/17/2017 Status: F Source: [place] 5:20 AM [facility] REPOSITORY Order Comment: Comments: as add on test TYPE CODE TESTS RESULT OUT OF RANGE REFERENCE UNITS LAB L501.4900 200 mg/dL Normal CHOL 159 Result Comment: <200 mg/dL Desirable 200-240 mg/dL Borderline >240 mg/dL High Risk LAB L501.5000 mg/dL Normal TRIG 77 Result Comment: The drugs N-Acetylcysteine and Metamizole may falsely depress this assay. Serum Triglycerides Reference Interval Normal <150 mg/dL Borderline high 150 - 199 mg/dL High 200 - 499 mg/dL Very High > or = 500 mg/dL LAB L501.6400 mg/dL Normal HDL 60 Result Comment: The drugs N-Acetylcysteine and Metamizole may falsely depress this assay. Reference Range HDL <40 mg/dL Low HDL Cholesterol HDL >or= 60 mg/dL High HDL Cholesterol LAB L501.6500 0-130 mg/dL Normal LDL 84 LAB L501.6600 5-40 mg/dL Normal VLDL 15 Performed By: #### L500.4100 #### [facility] [address] [facility] [place], [place], [address] TROPONIN-I Collected: 11/16/2017 Status: F Source: [place] 10:48 PM [facility] REPOSITORY Order Comment: 'TROP' Serial specimen #1, #2 or #3: 3 TYPE CODE TESTS RESULT OUT OF RANGE REFERENCE UNITS LAB L501.4010 <0.045 ng/mL Normal < 0.015 TROPONIN-I Result Comment: TROPONIN-I EXPECTED VALUES <0.045 Negative 0.045 - 0.590 Consistent with Cardiac Damage > OR = 0.600 Critical Value Not every elevated troponin is indicative of OR. These values should be used with clinical judgement in examining the patient's clinical picture for diagnosis. To establish a diagnosis of OR versus myocardial injury, there must be a demonstrated rise and/or fall in the troponin values, in addition to ischemic symptoms, EKG changes, new regional wall motion abnormality, and/or angiographical evidence. PLEASE NOTE: REFERENCE RANGES EDITED 17 Performed By: #### L501.4010 #### [facility] [address] [place], [address] BASIC METABOLIC Collected: 11/16/2017 Status: F Source: [place] PROFILE (BMP) 7:14 PM [facility] REPOSITORY TYPE CODE TESTS RESULT OUT OF RANGE REFERENCE UNITS LAB L501.0100 74-106 mg/dL High GLU 107 Result Comment: Fasting Glucose result from 100 to 125 mg/dL suggests IMPAIRED HOMEOSTASIS per A.D.A. criteria. Please note revised GLUCOSE reference range effective 2017. LAB L501.1000 7-18 mg/dL Normal BUN 11 LAB L501.1100 0.55-1.02 mg/dL Normal CREAT,SERUM 0.63 Result Comment: The validity of the calculated GFR AND GFRAA in patients over 70 years has not been determined. Clinical correlation is essential. LAB L501.1110 >60 mL/min Normal EST GFR 95 Result Comment: Non- GFR Calc LAB L501.1115 >60 mL/min Normal EST GFR - AA 115 Result Comment: GFR Calc LAB L501.1255 ml/min Normal Estimated CRCL 37.45 LAB L501.1300 10-20 RATIO Normal BUN/CRE 17.4 LAB L501.2200 8.5-10 mg/dL Normal .1 CA 8.8 LAB L501.5300 136-14 mmol/L Low 5 NA 135 LAB L501.5600 3.5-5. mmol/L Low 1 K 3.0 LAB L501.5900 98-107 mmol/L Normal CL 101 LAB L501.6100 21.0-3 mmol/L Normal 2.0 CO2 25.0 LAB L501.6200 5-15 Normal GAP 9 Performed By: #### L500.2500 #### [facility] [address] [place], [address] THYROID STIM HORMONE Collected: 11/16/2017 Status: F Source: [place] (TSH) 7:14 PM [facility] REPOSITORY TYPE CODE TESTS RESULT OUT OF RANGE REFERENCE UNITS LAB L501.9520 0.358-3.74 uIU/mL Normal TSH 2.71 Performed By: #### L501.9520 #### [facility] [address] [facility] [place], [address] HISTORY AND PHYSICAL Observed: 11/16/2017 Status: F Source: [place] EXAM 7:09 PM [facility] REPOSITORY [facility] Medical Records Department [address] [facility] [place] [address] History and Physical 11/16/17 1856 MR#: [id number] Acct: [id number] Name: DENAE PATHAK Rep #: [id number] : 1935 81 From: Luis Felipe Miller MD PCP: Aguila Ng DO Status: ADM GAIL Y Location: [place] [address] Problem List (1) Hypokalemia Status: Resolved (2) HTN (hypertension) Status: Chronic (3) Dyslipidemia Status: Chronic History of Present Illness Date of Admission: 11/16/17 Chief Complaint: Dizziness The patient is a 81 year old F past medical history of essential hypertension and dyslipidemia resented to the emergency room due to intractable dizziness associated with nausea and vomiting that started last night. She was seen by a nurse practitioner and her primary care doctor's office who asked for urine sample for urinalysis. At home and his symptoms got worse and she decided to come to the emergency room for further evaluation. He denies any associated headache, chest pain, palpitations or abdominal pain. CT scan of the brain was nonacute. We are placing her in the hospital for further evaluation. Past Medical History Past Medical History (Chronic Problems): Chronic Problems HTN (hypertension) (Chronic) Dyslipidemia (Chronic) Allergies aspirin Allergy (Verified 11/16/17 15:13) Hives tetanus immune globulin Allergy (Verified 11/16/17 15:13) Rash Home Medications: Ambulatory Orders Medication Instructions Recorded Surgical History: - - Breast biopsy otherwise unremarkable Smoking Status: Never smoker - *Family History Sibling History Items: - - Gallstones Maternal History Items: No pertinent history Paternal History Items: No pertinent history Review of Systems Comment: All Systems were reviewed with pertinent positives mentioned in the HPI above. VTE Information - Inpt Only VTE Present on Admission: No VTE Mechan Device Prophylaxis: SCD's VTE Pharm Prophylaxis ordered?: No - Physical Exam General: Alert, Oriented x3 HEENT: Atraumatic Oral: Moist Mucosa Neck: Supple, No JVD Lungs: Clear to auscultation Cardiovascular: Regular rate, Regular Rhythm, Normal S1, Normal S2 Abdomen: Bowel Sounds Present, Soft, Non Tender, Non-Distended Vital Signs Temp Pulse Resp BP Pulse Ox 98.2 F 83 16 160/88 H 97 11/16/17 18:14 11/16/17 18:14 11/16/17 18:14 11/16/17 18:14 11/16/17 18:14 Oxygen Delivery Method Room Air Weight: 58.8 kg Body Mass Index (BMI) 21.6 Assessment/Plan All Active Problems Hypokalemia (Resolved) Biliary colic (Acute) Biliary calculus (Acute) 1. Intractable dizziness/ ataxic gait; symptoms are concerning for posterior circulation CVA, we will obtain MRI of the brain and go from there. 2. Essential hypertension; this is controlled. 3. Hypokalemia; will replace with oral potassium chloride. 4. Dyslipidemia; will continue her statin. 5. GERD; she is on a PPI Code Visit OBSV E AND M: [id number] Initial observation care L2 11/16/17 147 <Electronically signed by Luis Felipe Miller MD> Date Luis Felipe Miller MD Cosigner Signature: Date (if applicable) CC: Aguila Ng DO; Luis Felipe Miller MD Signed BRAIN WITHOUT Observed: 11/16/2017 Status: F Source: [place] CONTRAST 5:35 PM [facility] REPOSITORY [facility] Imaging Services [address] [place] [address] Brain without Contrast MR#: [id number] Acct: [id number] Name: DENAE PATHAK Rep #: [id number] : 1935 F 81 From: Francois Colbert PCP: Aguila Ng DO Status: ADM IN Study: Brain without Contrast Date of Exam: 11/17/17 Exam# [id number] Ordering Dr: Luis Felipe Miller MD STUDY: MRI BRAIN WITHOUT CONTRAST REASON FOR EXAM: Female, 81 years old. dizziness since yesterday. TECHNIQUE: Standardized multiplanar fat and water weighted pulse sequences were obtained. COMPARISON: CT of the head dated 11/16/2017 FINDINGS: There is mild cerebral atrophy with widening of the extra- axial spaces and ventricular dilatation. There are multiple white matter hyperintensities, distributed throughout the deep white matter tracts of the cerebral hemispheres, consistent with moderate chronic white matter ischemic changes. There is a 7 mm restricted diffusion at the left cerebellum (axial image #5 series 4) with drop of signal on ADC map, consistent with acute infarction. Additionally there appears to be 1-2 mm increased diffusion signal within the right cerebellum as well. Normal bilateral basal ganglia. Normal thalami. There is no extra-axial fluid accumulation. Normal flow voids within the major intracranial circulation suggesting patency by spin echo criteria. Normal sella turcica, pituitary gland, infundibular stalk, optic chiasm and hypothalamus. Normal tectal plate and pineal gland. 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 Consider embolic etiologies. N.B. : The above information has been verbally conveyed by Francois Colbert MD to Jen Davis, Hospital- In-Patient RN, on 11/17/2017 12:36:02 (ET). Electronically Signed: Francois Colbert MD at 10:51 EDT Tel , Service support , N.B. : The above information has been verbally conveyed by Francois Colbert MD to Jen Ryan [facility]- In-Patient RN, on 11/17/2017 12:36:02 (ET). CC: Aguila Ng DO; Luis Felipe Miller MD Paraeducator: Signed EMERGENCY DEPARTMENT Observed: 11/16/2017 Status: F Source: [place] SUMMARY 5:33 PM [facility] REPOSITORY [facility] Medical Records Department [address] [place] [address] Emergency Department Summary 11/16/17 1521 MR#: [id number] Acct: [id number] Name: DENAE PATHAK Rep #: [id number] : 1935 81 From: Kori Hartley MD PCP: Aguila Ng DO Status: REG ER - ER Visit Summary Date of Service: 11/16/17 Chief Complaint: Dizziness History of Present Illness: The patient is a 81 F presenting with dizziness, nausea, vomiting. Patient states this started last night. She started to feel nauseated. She had lightheadedness. She states this worsened today and she was seen by the CONCRETE ANALYST at her at her primary care physician's office. When she returned home from her office visit she states the dizziness worsened. She states it is a lightheadedness. She denies vertigo. She had a near syncopal episode. She denies chest pain or shortness of breath. She states she had to crawl into the house because she was too dizzy to stand. She has had vomiting with no blood in her emesis. Denies fever. Denies other complaints. Physical Examination: Vitals are stable. Patient is afebrile. Alert no acute distress. HEENT exam is unremarkable. Neck is supple. Lungs are clear and equal bilaterally. Heart is regular rate and rhythm. Abdomen is soft nontender nondistended. Extremities are unremarkable. Skin is warm and dry. No focal neurologic deficit. NIH 0 Remainder of exam is unremarkable. Emergency Department Course and Treatment: Patient is given IV fluids, Zofran. EKG is sinus rate of 80 with no acute ischemic changes. Chest x-ray shows no acute process. CT head shows chronic changes. CBC, chemistries unremarkable other than potassium 3.3, glucose 138. Troponin is negative. Attempted to ambulate the patient and she is very unsteady. Family is concerned because she had several episodes of near syncope today. She lives alone and they are concerned about her going home. Will discuss with the hospitalist for admission. Disposition: Admission Impression: Near syncope This note was generated with [employer] dictation software. It may contain incorrect words, spelling, and punctuation that were not noted in review of the chart prior to signing ED Disposition - Plan for ED Patient: Chief Complaint: Nausea/Vomiting/Diarrhea Referrals: Aguila Beebe DO [Primary Care Provider] - What to do if you have Problems For any increased pain, shortness of breath, bleeding, nausea or vomiting, chest pain, or any unexpected problems, contact your Primary Care Provider. Call [facility] ([phone]) or report to the closest Emergency Room. Call 911 if necessary. 11/16/17 7647 <Electronically signed by Kori Hartley MD> Date Kori Hartley MD Cosigner Signature (If Indicated): Date CC: Aguila Ng DO URINALYSIS, COMPLETE Collected: 11/16/2017 Status: F Source: [place] 4:05 PM [facility] REPOSITORY Order Comment: Order Date: 11/16/17 How was Urine Obtained? CLEAN CATCH TYPE CODE TESTS RESULT OUT OF RANGE REFERENCE UNITS LAB L400.3000 Yellow COLOR Normal Yellow LAB L400.3050 Clear Normal CLARITY Clear LAB L400.3200 Normal mg/dl Normal GLUCOSE, UR Normal LAB L400.3300 Negative mg/dL Normal BILIRUBIN URINE Negative LAB L400.3400 Negative mg/dl Normal KETONE UR Negative LAB L400.3465 1.002-1.030 Normal SP.GR. DIPSTX 1.015 LAB L400.3550 5.0 - 8.0 pH UR Normal 8.0 LAB L400.3600 Negative mg/dl PROT Normal DIPSTX Negative LAB L400.3700 Normal mg/dl Normal UROBILI Normal LAB L400.3750 Negative Normal NITRITE UR Negative LAB L400.3780 Negative /ul High 10 OCCULT BLOOD-UR LAB L400.3800 Negative /ul LEUK Normal ESTERASE Negative LAB L400.4050 0-5 /hpf WBC Normal 0-5 SEEN LAB L400.4100 0-5 /hpf Normal RBC-UA 0-5 SEEN LAB L400.4150 5-10 /hpf SQUAM Normal EPI 0-5 SEEN LAB L400.4300 None Seen /hpf 0 Normal BACTERIA SEEN LAB L400.4350 <or=2+ /hpf 0 Normal MUCUS, URINE SEEN Performed By: #### L400.0001 #### [facility] [facility] [place], [address] CBC W/DIFF, AUTOMATED Collected: 11/16/2017 Status: F Source: [place] 3:25 PM [facility] REPOSITORY TYPE CODE TESTS RESULT OUT OF RANGE REFERENCE UNITS LAB L100.1000 4.4-11.0 K/mm3 Normal WBC 6.0 LAB L100.1200 4.2-5.4 M/mm3 Normal RBC 4.92 LAB L100.1300 12.0-15.0 g/dl High HGB 15.1 LAB L100.1400 37-47 % Normal HCT 43.2 LAB L100.1500 81-99 fL Normal MCV 87.8 LAB L100.1600 27.0-32.0 pg Normal MCH 30.7 LAB L100.1700 32-36 g/gl Normal MCHC 35.0 LAB L100.1810 11.6-14.6 % Normal RDW CV 13.2 LAB L100.1820 35.1-43.9 fl Normal RDW SD 42.3 LAB L100.1900 150-450 K/mm3 Normal PLT 267 LAB L100.2000 6.2-12.0 fl Normal MPV 11.2 LAB L100.2100 47-70 % Normal NEUT% 67.4 LAB L100.2200 19-41 % Normal LY% 23.0 LAB L100.2300 0-10 % Normal MONO% 6.3 LAB L100.2400 0-5 % Normal EO% 2.5 LAB L100.2500 0-1 % Normal BASO% 0.5 LAB L100.2550 0.0-0.9 % Normal IM GRAN % 0.300 Result Comment: IG% - Immature Granulocytes (promyelocytes, myelocytes and metamyelocytes) > 1% indicates that a LEFT SHIFT is Present. LAB L100.2620 2.0-7.7 X10 3/uL Normal Absolute Neut 4.0 LAB L100.2720 0.83-4.51 X10 3/ul Normal Absolute Lymph 1.38 Performed By: #### L100.0100 #### [facility] [address] [place], [address] BASIC METABOLIC Collected: 11/16/2017 Status: F Source: [place] PROFILE (BMP) 3:25 PM [facility] REPOSITORY TYPE CODE TESTS RESULT OUT OF RANGE REFERENCE UNITS LAB L501.0100 74-106 mg/dL High GLU 138 Result Comment: Fasting Glucose result greater than or equal to 126 mg/dL suggests DIABETES MELLITUS per A.D.A. criteria. Please note revised GLUCOSE reference range effective 2017. LAB L501.1000 7-18 mg/dL Normal BUN 13 LAB L501.1100 0.55-1.02 mg/dL Normal CREAT,SERUM 0.85 Result Comment: The validity of the calculated GFR AND GFRAA in patients over 70 years has not been determined. Clinical correlation is essential. LAB L501.1110 >60 mL/min Normal EST GFR 68 Result Comment: Non- GFR Calc LAB L501.1115 >60 mL/min Normal EST GFR - AA 82 Result Comment: GFR Calc LAB L501.1255 ml/min Normal Estimated CRCL 45.92 LAB L501.1300 10-20 RATIO Normal BUN/CRE 15.3 LAB L501.2200 8.5-10 mg/dL Normal .1 CA 9.2 LAB L501.5300 136-14 mmol/L Low 5 NA 134 LAB L501.5600 3.5-5. mmol/L Low 1 K 3.3 LAB L501.5900 98-107 mmol/L Normal CL 99 LAB L501.6100 21.0-3 mmol/L Normal 2.0 CO2 26.0 LAB L501.6200 5-15 Normal GAP 9 Performed By: #### L500.2500, L501.4010 #### [facility] [address] [place], [address] TROPONIN-I Collected: 11/16/2017 Status: F Source: [place] 3:25 PM [facility] REPOSITORY TYPE CODE TESTS RESULT OUT OF RANGE REFERENCE UNITS LAB L501.4010 <0.045 ng/mL Normal < 0.015 TROPONIN-I Result Comment: TROPONIN-I EXPECTED VALUES <0.045 Negative 0.045 - 0.590 Consistent with Cardiac Damage > OR = 0.600 Critical Value Not every elevated troponin is indicative of OR. These values should be used with clinical judgement in examining the patient's clinical picture for diagnosis. To establish a diagnosis of OR versus myocardial injury, there must be a demonstrated rise and/or fall in the troponin values, in addition to ischemic symptoms, EKG changes, new regional wall motion abnormality, and/or angiographical evidence. PLEASE NOTE: REFERENCE RANGES EDITED 17 Performed By: #### L500.2500, L501.4010 #### [facility] [address] [place], [address] CHEST 1 VIEW Observed: 11/16/2017 Status: F Source: [place] (PORTABLE) 3:21 PM [facility] REPOSITORY [facility] Imaging Services [address] [address] Chest 1 View (Portable) MR#: [id number] Acct: [id number] Name: DENAE PATHAK Rep #: [id number] : 1935 F 81 From: Carl Wynn MD PCP: Aguila Ng DO Status: REG ER Study: Chest 1 View (Portable) Date of Exam: 11/16/17 Exam# [id number] Ordering Dr: Kori Hartley MD STUDY: X-RAY CHEST REASON FOR EXAM: Female, 81 years old. Shortness of breath. Nausea and vomiting. TECHNIQUE: Single AP portable view of the chest. COMPARISON: None. FINDINGS: EKG electrodes are seen. The lungs are clear and expanded. There is no demonstrated pleural abnormality. Normal size heart. Normal mediastinum and morelia. Normal visualized pulmonary arteries. There is atherosclerotic tortuosity of the aortic arch and descending thoracic aorta. Normal visualized thoracic spine. Normal visualized ribs, clavicles, and shoulders. Hiatal hernia. RAD/Chest 1 View (Portable) IMPRESSION: No acute abnormality is seen. Electronically Signed: Carl Wynn MD at 15:44 EDT Tel [phone], Service support , CC: Kori Hartley MD; Aguila Ng DO Paraeducator: Signed BRAIN/HEAD WITHOUT Observed: 11/16/2017 Status: F Source: [place] CONTRAST 3:21 PM [facility] REPOSITORY [facility] Imaging Services [address] [place] [address] Brain/Head without Contrast MR#: [id number] Acct: [id number] Name: DENAE PATHAK Rep #: [id number] : 1935 F 81 From: Casimiro Tavares MD PCP: Aguila Ng DO Status: REG ER Study: Brain/Head without Contrast Date of Exam: 11/16/17 Exam# [id number] Ordering Dr: Kori Hartley MD STUDY: CT BRAIN WITHOUT CONTRAST REASON FOR EXAM: Female, 81 years old. Dizziness RADIATION DOSAGE (If Supplied By Facility): CTDIvol = ( 44.99 ) mGy, DLP = ( 829.85 ) mGycm TECHNIQUE: Transaxial CT imaging of the brain was performed without administration of intravenous contrast material. Individualized dose optimization techniques were used for this CT. COMPARISON: 07/10/2017 FINDINGS: There is no acute bleed or infarct. There are stable chronic ischemic and atrophic changes. The ventricles are normal in configuration. There is no hydrocephalus. The visualized paranasal sinuses are clear. The mastoid air cells are well aerated. There is no skull fracture. CT/Brain/Head without Contrast IMPRESSION: Stable chronic ischemic and atrophic changes. No acute intracranial abnormality. Electronically Signed: Casimiro Tavares, at 16:05 EDT Tel , Service support , CC: Kori Hartley MD; Aguila Ng DO Paraeducator: Signed URINALYSIS WITH Collected: 11/16/2017 Status: F Source: [place] MICROSCOPIC 12:18 PM [facility] REPOSITORY TYPE CODE TESTS RESULT OUT OF RANGE REFERENCE UNITS LAB UCOL Yellow Color Yellow LAB [facility] Clear Clarity Abnormal Cloudy Alert LAB UGLUC Negative mg/dL Glucose, Urine Negative LAB UBIL Negative Bilirubin, Urine Negative LAB UKET Negative Ketones, Urine Negative LAB USPG 1.005-1.030 Specific [place], Ur 1.016 LAB UHGB Negative Hemoglobin/Blood, Negative Ur LAB UPH 4.5-8.0 pH 7.0 LAB UPROT Negative mg/dL Protein, Urine Negative LAB UUROB Normal Urobilinogen Normal LAB UNITR Negative Nitrites Negative LAB ULKEST Negative Leukest Negative LAB UCOM Comments SEE COMMENT Result Comment: N/A LAB UMCOM Urine SEE Jaime Comment COMMENT Result Comment: N/A LAB UWBC 0-5 /HPF WBC 0-5 LAB URBC 0-3 /HPF RBC 0-3 LAB UCRYS 0 /HPF Abnormal Alert Crystals SEE COMMENT Result Comment: Few Calcium Oxalate Crystal Performed By: #### UAWMIC #### [facility] [address] [place], [place] [address] Observed: 11/16/2017 Status: F Source: [place] URINE CULTURE 12:18 PM [facility] REPOSITORY Sp. Request/Comment: - Specimen received in preservative Culture Result - No growth (<1,000 CFU/ml) Performed By: #### URCUL #### [facility] [address] [place], [place] [address] PROGRESS Observed: 11/16/2017 Status: COMPLETED Source: [place] 11:27 AM [facility] [place] REPOSITORY HNO ID: [id number] Author: Mary Garduno (Calendering Machine Operator) Kay Service: (none) Author Type: Nurse Practitioner Type: Progress Notes Filed: 11/16/2017 11:48 AM Note Text: HPI/CC: Denae Pathak is a 81 year old female who presents for Nausea, diaphoresis and dizziness (3 spells yesterday; 1 today. Episodes last approximately 15 minutes and resolve. Today she continues to have nausea after the initial episode has passed. Reports feeling unsteady with lack of coordination, decreased appetite and nausea. Walks with a wheeled walker. No recent falls. Denies fever, chills, vomiting, abdominal pain, diarrhea, headache, cough, CP, SOB, syncope, change in BMs, blood in stools, UTI symptoms. ROS as above, otherwise non-contributory. Reviewed PMHx, PSHx, social Hx, medications and allergies. PHYSICAL EXAMINATION: BP 158/84 Pulse 64 Resp 16 Wt 58.1 kg (128 lb) BMI 24.19 kg/m? General appearance: Well appearing, alert, in no acute distress, well-hydrated, well nourished., Thin Skin: Skin color, texture, turgor normal, no suspicious rashes or lesions Head: Normocephalic, no masses, lesions, tenderness or abnormalities Eyes: Anicteric sclera. Pupils are equally round and reactive to light. Extraocular movements are intact. Ears: External ears normal, canals clear Nose/Sinuses: Nares normal, septum midline, mucosa normal, no drainage or sinus tenderness Oropharynx: Lips, mucosa, and tongue normal, teeth and gums normal, oropharynx normal Neck: Supple, no adenopathy; thyroid symmetric, normal size, no bruits Back: Normal exam Lungs: Lungs clear to auscultation. No wheezing, rhonchi, rales Heart: RRR without murmur, gallop, or rubs. No ectopy Abdomen: Normal abdominal exam, Abdomen soft, non-tender. Bowel sounds normal. No masses, organomegaly Extremities: No deformities, edema, skin discoloration, clubbing or cyanosis. Good capillary refill. Musculoskeletal: No joint swelling, deformity, or tenderness, strength is normal and equal Neuro: Gait slightly unsteady but normal. Reflexes normal and symmetric. Sensation grossly intact. ASSESSMENT/PLAN: 1. Dizziness - ICD9: 780.4, ICD10: R42 (primary diagnosis) 2. Nausea - ICD9: 787.02, ICD10: R11.0 - ONDANSETRON 4 MG DISINTEGRATING TABLET - URINALYSIS WITH MICROSCOPIC - URINE CULTURE - patient unable to provide urine - if no infection consider imaging for change in gait. Mary Rivero APRN.CNP CNOV Observed: 11/16/2017 Status: COMPLETED Source: [place] 10:40 AM [facility] REPOSITORY Office Visit (FAMPWS) OLGADENAE Hargrove ([id number]) 1935 F Date Time Provider Department 11/16/17 10:40 AM [facility] visit today, we recorded the following information about you: Pulse Respiration Blood pressure Weight 64/minute 16/minute 158/84 58.1 kg Mary Rivero APRN.CNP 11/16/2017 11:48 AM Signed HPI/CC: Denae Pathak is a 81 year old female who presents for Nausea, diaphoresis and dizziness (3 spells yesterday; 1 today. Episodes last approximately 15 minutes and resolve. Today she continues to have nausea after the initial episode has passed. Reports feeling unsteady with lack of coordination, decreased appetite and nausea. Walks with a wheeled walker. No recent falls. Denies fever, chills, vomiting, abdominal pain, diarrhea, headache, cough, CP, SOB, syncope, change in BMs, blood in stools, UTI symptoms. ROS as above, otherwise non-contributory. Reviewed PMHx, PSHx, social Hx, medications and allergies. PHYSICAL EXAMINATION: BP 158/84 Pulse 64 Resp 16 Wt 58.1 kg (128 lb) BMI 24.19 kg/m? General appearance: Well appearing, alert, in no acute distress, well-hydrated, well nourished., Thin Skin: Skin color, texture, turgor normal, no suspicious rashes or lesions Head: Normocephalic, no masses, lesions, tenderness or abnormalities Eyes: Anicteric sclera. Pupils are equally round and reactive to light. Extraocular movements are intact. Ears: External ears normal, canals clear Nose/Sinuses: Nares normal, septum midline, mucosa normal, no drainage or sinus tenderness Oropharynx: Lips, mucosa, and tongue normal, teeth and gums normal, oropharynx normal Neck: Supple, no adenopathy; thyroid symmetric, normal size, no bruits Back: Normal exam Lungs: Lungs clear to auscultation. No wheezing, rhonchi, rales Heart: RRR without murmur, gallop, or rubs. No ectopy Abdomen: Normal abdominal exam, Abdomen soft, non-tender. Bowel sounds normal. No masses, organomegaly Extremities: No deformities, edema, skin discoloration, clubbing or cyanosis. Good capillary refill. Musculoskeletal: No joint swelling, deformity, or tenderness, strength is normal and equal Neuro: Gait slightly unsteady but normal. Reflexes normal and symmetric. Sensation grossly intact. ASSESSMENT/PLAN: 1. Dizziness - ICD9: 780.4, ICD10: R42 (primary diagnosis) 2. Nausea - ICD9: 787.02, ICD10: R11.0 - ONDANSETRON 4 MG DISINTEGRATING TABLET - URINALYSIS WITH MICROSCOPIC - URINE CULTURE - patient unable to provide urine - if no infection consider imaging for change in gait. Mary Rivero APRN.MINER Referring Provider: SELF [[id number]] Allergies As of Date: 11/16/2017 Noted Allergy Reaction ASA (SALICYLATES) 04/21/2005 4 - Hives BACTRIM (SULFAMETHOXAZOLE) 07/30/2012 2 - Rash TETANUS VACCINES AND TOXOID 04/21/2005 7 - Swelling Date Reviewed: 11/16/2017 Reviewed by: Wilmar Silva LPN - Fully Assessed Reason for Visit: Nausea [70] Dizziness [36] Cmt: 3 spells yesterday; 1 today Primary Visit Diagnosis:Dizziness [R42] Other Visit Diagnosis:Nausea [R11.0] Order(s):ondansetron orally disintegrating (ZOFRAN ODT) 4 mg disintegrating tabletTake 1 tablet by mouth every 12 hours as needed for Nausea/Vomiting.Disp: 8 tabletRfl: 0 URINALYSIS WITH MICROSCOPIC [SQUAWMIC] Order #: [id number] URINE CULTURE [SQURCUL] Order #: [id number] Prescriptions as of 11/16/2017 Sig: PRAVASTATIN 20 MG TABLET Take 1 tablet by mouth daily * POTASSIUM CHLORIDE ER 20 MEQ * Take 1 tablet by mouth twice * METOPROLOL TARTRATE 50 MG TAB* Take 1 tablet by mouth twice * HYDROCHLOROTHIAZIDE 25 MG TAB* Take 1 tablet by mouth once d* PANTOPRAZOLE 20 MG TABLET,DEL* Take 1 tablet by mouth daily * IBUPROFEN 200 MG TABLET Take 1-2 tablets by mouth marco antonio* CALCIUM CARBONATE 600 MG (1,5* Take 1 tablet by mouth twice * GLUCOSAMINE CHONDROITIN MAXIM* Take one(1) tablet two(2) nahomy* THERAPEUTIC MULTIVITAMIN TABL* Take one(1) tablet daily. FISH OIL 500 MG CAPSULE Take one(1) tablet two(2) nahomy* FLAXSEED OIL 1,000 MG CAPSULE Take one(1) tablet daily. ONDANSETRON 4 MG DISINTEGRATI* Take 1 tablet by mouth every * Problem List As Of Date 11/16/2017 Noted Resolved BENIGN HYPERTENSION [I10] Hyperlipidemia [E78.5] Scoliosis (and kyphoscoliosis), idiopathic [M41* Disorder of bone and cartilage [M89.9, M94.9] INVALID FOR* OSTEOARTHROS NOS-UNSPEC [M19.90] INVALID FOR* DIVERTICULOSIS OF COLON W/O BLEED [K57.30] INT HEMORRHOID W/O COMPL [K64.8] NONSPECIF SKIN ERUPT NEC [R21] INVALID FOR* ESOPHAGEAL REFLUX [K21.9] INVALID FOR* Rhinitis, chronic [J31.0] INVALID FOR* Counseling and coordination of care [Z71.89] INVALID FOR*12/24/2014 More... Arthritis, multiple joint involvement [M12.9] INVALID FOR* Pure hypercholesterolemia [E78.00] INVALID FOR* Gastroesophageal reflux disease without esophag*INVALID FOR* Pain in joint, multiple sites [M25.50] INVALID FOR* Hypokalemia [E87.6] INVALID FOR* Osteopenia of multiple sites [M85.89] INVALID FOR* Prescriptions ordered this encounter Disp Refills Start End ONDANSETRON 4 MG DISINTEGRATING TABL* 8 ta* 0 11/16/2017 Route: ORAL Sig: Take 1 tablet by mouth every 12 hours as needed for Nausea/Vomiting. Encounter Status:Closed by MARY RIVERO CNP on 11/16/17 PROGRESS Observed: 10/18/2017 Status: COMPLETED Source: [place] 6:48 AM [facility] [place] REPOSITORY HNO ID: [id number] Author: Aguila Beebe Service: (none) Author Type: Physician Type: Progress Notes Filed: 10/18/2017 6:54 AM Note Text: CC: Denae Pathak is a 81 year old female who presents to the office for 6 months follow up HPI: HTN: currently on Metoprolol and HCTZ, overall doing well, denies palpitations, CP, dyspnea, BAIN or vision changes. Tolerating medications without concerns. Denies dyspnea or CP or palpitations or fatigue or BAIN or vision changes. ?? HPL: takes Pravachol 20 mg at bedtime, denies myalgias. Tries to eat a healthy diet ? Able to care for her ADLs and IADLs between her and her . Live together, do a lot for their daughter with crippling MS wheelchair bound. Some stressors with Alessandra being ill hospitalized with PNA now ? Cholesterol Date Value Ref Range Status 10/04/2016 193 100 - 199 mg/dL Final ? HDL Cholesterol Date Value Ref Range Status 10/04/2016 68 >55 mg/dL Final ? LDL Cholesterol Date Value Ref Range Status 10/04/2016 106 60 - 129 mg/dL Final ? Triglyceride Date Value Ref Range Status 10/04/2016 93 30 - 149 mg/dL Final ? ? Cholesterol, Total Date Value Ref Range Status 10/10/2017 170 <200 mg/dL Final Comment: <200 mg/dL, Desirable 200-239 mg/dL, Borderline high >239 mg/dL, High HDL Cholesterol Date Value Ref Range Status 10/10/2017 71 >39 mg/dL Final Comment: 40-59 mg/dL, Acceptable >59 mg/dL, High: Negative risk factor for coronary heart disease <40 mg/dL, Low: Positive risk factor for coronary heart disease LDL Cholesterol Date Value Ref Range Status 10/10/2017 86 <100 mg/dL Final Comment: <100 mg/dL, Optimal 100-129 mg/dL, Near optimal/above optimal 130-159 mg/dL, Borderline high 160-189 mg/dL, High >189 mg/dL, Very high Secondary prevention optimal LDL Cholesterol levels are recommended to be < 70 mg/dL Triglyceride Date Value Ref Range Status 10/10/2017 65 <150 mg/dL Final Comment: <150 mg/dL, Normal 150-199 mg/dL, Borderline high 200-499 mg/dL, High >499 mg/dL, Very high ? GERD: controlled with omeprazole, has tried off medication without success in the past, needs to change medication because insurnace will no longer cover ?? Severe kyphosis/scoliosis, still able to cook/clean and care for self. Arthritis- states that tylenol occasionally or rest improves her pain, not interested in narcotics. Tried prescription arthritis medications such as Celebrex and unable to tolerate due to severe reflux symptoms so was started on Prilosec. Use of Advil as needed still with relief and heating pad as well- which she uses nightly. Pain is improving with intermittent use of Accupuncture ? Hemoglobin (g/dL) Date Value 03/14/2014 14.7 ? ? Hematocrit (%) Date Value 03/14/2014 43.9 ? ? WBC (k/uL) Date Value 03/14/2014 5.40 ? ? Hemoglobin (g/dL) Date Value 10/10/2017 14.1 Hematocrit (%) Date Value 10/10/2017 44.4 WBC (k/uL) Date Value 10/10/2017 4.81 Vitamin D deficiency, taking supplement OTC Hypokalemia, tolerating twice daily dosing of potassium Glucose (mg/dL) Date Value 10/10/2017 90 Potassium (mmol/L) Date Value 10/10/2017 3.8 Sodium (mmol/L) Date Value 10/10/2017 139 Chloride (mmol/L) Date Value 10/10/2017 101 CO2 (mmol/L) Date Value 10/10/2017 23 Creatinine (mg/dL) Date Value 10/10/2017 0.73 BUN (mg/dL) Date Value 10/10/2017 12 Anion Gap (mmol/L) Date Value 10/10/2017 15 Calcium (mg/dL) Date Value 10/10/2017 9.1 Protein, Total (g/dL) Date Value 10/10/2017 7.5 Albumin (g/dL) Date Value 10/10/2017 4.0 Bilirubin, Total (mg/dL) Date Value 10/10/2017 0.6 Alkaline Phosphatase (U/L) Date Value 10/10/2017 54 AST (U/L) Date Value 10/10/2017 23 ALT (U/L) Date Value 10/10/2017 17 ?? : up to date? ? ? PAST MEDICAL HISTORY Diagnosis Date - Acute cholecystitis 05/14/14 - Cholelithiasis 05/14/14 - Diverticulosis of colon (without mention of hemorrhage) - Essential hypertension, benign - GERD (gastroesophageal reflux disease) - Internal hemorrhoids without mention of complication - Other and unspecified hyperlipidemia - Other kyphoscoliosis and scoliosis - Post-operative nausea and vomiting 04/2014 - Symptomatic menopausal or female climacteric states MENOPAUSE PAST SURGICAL HISTORY Procedure Laterality Date - COLONOSCOP W/ OR W/O BRSH SPEC 06/28/05 - LAPAROSCOPIC CHOLEYCYSTECTOMY 05/14/14 ANESTHESIA difficulty due to severe post o N/V - NONE Current Outpatient Prescriptions: pravastatin (PRAVACHOL) 20 mg tablet Take 1 tablet by mouth daily at bedtime. potassium chloride ER (K-DUR, KLOR-CON) 20 mEq tablet Take 1 tablet by mouth twice daily. metoprolol tartrate, short acting, (LOPRESSOR) 50 mg tablet Take 1 tablet by mouth twice daily. hydroCHLOROthiazide (HYDRODIURIL, ESIDRIX) 25 mg tablet Take 1 tablet by mouth once daily. pantoprazole DR (PROTONIX) 20 mg tablet Take 1 tablet by mouth daily before breakfast. Take on empty stomach, 1/2 hr before meal. ibuprofen 200 mg ORAL tablet Take 1-2 tablets by mouth every 4 hours as needed. for pain. calcium carbonate 600 mg-cholecalciferol 400 units (CALTRATE- 600 PLUS VITAMIN D3) 600 mg(1,500mg) -400 unit ORAL Tab Take 1 tablet by mouth twice daily. gluc fritz/chondro fritz a/vit c/mn(GLUCOSAMINE CHONDROITIN MAXIMUM STRENGTH 500 MG-400 MG CAP) Take one(1) tablet two(2) times daily. THERAPEUTIC MULTIVITAMIN TAB Take one(1) tablet daily. FISH OIL CAP Take one(1) tablet two(2) times daily. FLAXSEED OIL 1,000 MG CAP Take one(1) tablet daily. No current facility-administered medications for this visit. ALLERGIES Allergen Reactions - Asa [Salicylates] Hives - Bactrim [Sulfametho* Rash - Tetanus Vaccines An* Swelling Social History Marital status: Spouse name: Aj Years of education: Number of children: 1 Occupational History Occupation Employer Comment retired Social History Main Topics Smoking status: Never Smoker Smokeless tobacco: Never Used Alcohol use: No Drug use: No ROS: See HPI PE: BP 130/80 Pulse 64 Temp (Src) 97.1 (Left Tympanic) Resp 20 Wt 130 lb (59.0kg) Gen: AANDOX3, NAD, non-toxic appearing, cooperative HEENT: PERRLA, EOMs intact b/l, wearing glasses, nares without drainage, pharynx without erythema, exudate, lesions, or drainage. Uvula midline. MMM, EAC and TM normal b/l Neck: No LAD, no thyromegaly, no meningismus. CV: RRR, 2/6 HSM RUSB murmur, normal s1s2? Lungs: CTA b/l, no wheezing No edema, normal pulses Skin: No rashes, lesions, or wounds on exposed skin. Severe scoliosis and thoracic kyphosis ? ASSESSMENT/PLAN: 1. BENIGN HYPERTENSION - ICD9: 401.1, ICD10: I10 (primary diagnosis) - good control - Continue current medication(s) - Encouraged dietary sodium restriction/DASH diet - Recommended regular aerobic exercise. - Recommend home blood pressure monitoring, to bring results in on next visit - Goal of BP <130/80 2. Hypokalemia - ICD9: 276.8, ICD10: E87.6 - stable, continue twice a daily dosing KCl 3. Arthritis, multiple joint involvement - ICD9: 716.99, ICD10: M12.9 - stable, continue intermittent accupuncture since she is getting relief. 4. Pure hypercholesterolemia - ICD9: 272.0, ICD10: E78.00 - suboptimal control - Continue current medication. - Encouraged following a low fat, low cholesterol diet. - Discussed the benefits of regular aerobic exercise and weight loss. - Check fasting lipid panel in 6 months 5. Scoliosis (and kyphoscoliosis), idiopathic - ICD9: 737.30, ICD10: M41.20 - stable, see above 6. Gastroesophageal reflux disease without esophagitis - ICD9: 530.81, ICD10: K21.9 - Discussed lifestyle modifications including losing weight, limiting caffeine, no meals three hours before sleep and head of bed elevation 7. Osteopenia of multiple sites - ICD9: 733.90, ICD10: M85.89 - Reviewed the need for Calcium and Vitamin D supplements and weight bearing exercise as tolerated Aguila Beebe DO Return if no improvement. Follow up with Aguila Beebe DO. Discussed risks, benefits, alternatives, and potential side effects of medications. Patient/Guardian expressed understanding and agreed with the plan. See patient instructions. Aguila Beebe DO [address] [place] [address] CNOV Observed: 10/17/2017 Status: COMPLETED Source: [place] 1:40 PM [facility] REPOSITORY Office Visit (FAMPWS) DENAE PATHAK ([id number]) 1935 F Date Time Provider Department 10/17/17 1:40 PM AGUILA BEEBE During your visit today, we recorded the following information about you: Temperature Pulse Respiration Blood pressure 97.1 degrees 64/minute 20/minute 130/80 Weight 59 kg Aguila Beebe DO 10/18/2017 6:54 AM Signed CC: Denae Pathak is a 81 year old female who presents to the office for 6 months follow up HPI: HTN: currently on Metoprolol and HCTZ, overall doing well, denies palpitations, CP, dyspnea, BAIN or vision changes. Tolerating medications without concerns. Denies dyspnea or CP or palpitations or fatigue or BAIN or vision changes. ?? HPL: takes Pravachol 20 mg at bedtime, denies myalgias. Tries to eat a healthy diet ? Able to care for her ADLs and IADLs between her and her . Live together, do a lot for their daughter with crippling MS wheelchair bound. Some stressors with Alessandra being ill hospitalized with PNA now ? Cholesterol Date Value Ref Range Status 10/04/2016 193 100 - 199 mg/dL Final ? HDL Cholesterol Date Value Ref Range Status 10/04/2016 68 >55 mg/dL Final ? LDL Cholesterol Date Value Ref Range Status 10/04/2016 106 60 - 129 mg/dL Final ? Triglyceride Date Value Ref Range Status 10/04/2016 93 30 - 149 mg/dL Final ? ? Cholesterol, Total Date Value Ref Range Status 10/10/2017 170 <200 mg/dL Final Comment: <200 mg/dL, Desirable 200-239 mg/dL, Borderline high >239 mg/dL, High HDL Cholesterol Date Value Ref Range Status 10/10/2017 71 >39 mg/dL Final Comment: 40-59 mg/dL, Acceptable >59 mg/dL, High: Negative risk factor for coronary heart disease <40 mg/dL, Low: Positive risk factor for coronary heart disease LDL Cholesterol Date Value Ref Range Status 10/10/2017 86 <100 mg/dL Final Comment: <100 mg/dL, Optimal 100-129 mg/dL, Near optimal/above optimal 130-159 mg/dL, Borderline high 160-189 mg/dL, High >189 mg/dL, Very high Secondary prevention optimal LDL Cholesterol levels are recommended to be < 70 mg/dL Triglyceride Date Value Ref Range Status 10/10/2017 65 <150 mg/dL Final Comment: <150 mg/dL, Normal 150-199 mg/dL, Borderline high 200-499 mg/dL, High >499 mg/dL, Very high ? GERD: controlled with omeprazole, has tried off medication without success in the past, needs to change medication because insurnace will no longer cover ?? Severe kyphosis/scoliosis, still able to cook/clean and care for self. Arthritis- states that tylenol occasionally or rest improves her pain, not interested in narcotics. Tried prescription arthritis medications such as Celebrex and unable to tolerate due to severe reflux symptoms so was started on Prilosec. Use of Advil as needed still with relief and heating pad as well- which she uses nightly. Pain is improving with intermittent use of Accupuncture ? Hemoglobin (g/dL) Date Value 03/14/2014 14.7 ? ? Hematocrit (%) Date Value 03/14/2014 43.9 ? ? WBC (k/uL) Date Value 03/14/2014 5.40 ? ? Hemoglobin (g/dL) Date Value 10/10/2017 14.1 Hematocrit (%) Date Value 10/10/2017 44.4 WBC (k/uL) Date Value 10/10/2017 4.81 Vitamin D deficiency, taking supplement OTC Hypokalemia, tolerating twice daily dosing of potassium Glucose (mg/dL) Date Value 10/10/2017 90 Potassium (mmol/L) Date Value 10/10/2017 3.8 Sodium (mmol/L) Date Value 10/10/2017 139 Chloride (mmol/L) Date Value 10/10/2017 101 CO2 (mmol/L) Date Value 10/10/2017 23 Creatinine (mg/dL) Date Value 10/10/2017 0.73 BUN (mg/dL) Date Value 10/10/2017 12 Anion Gap (mmol/L) Date Value 10/10/2017 15 Calcium (mg/dL) Date Value 10/10/2017 9.1 Protein, Total (g/dL) Date Value 10/10/2017 7.5 Albumin (g/dL) Date Value 10/10/2017 4.0 Bilirubin, Total (mg/dL) Date Value 10/10/2017 0.6 Alkaline Phosphatase (U/L) Date Value 10/10/2017 54 AST (U/L) Date Value 10/10/2017 23 ALT (U/L) Date Value 10/10/2017 17 ?? HM: up to date? ? ? PAST MEDICAL HISTORY Diagnosis Date - Acute cholecystitis 05/14/14 - Cholelithiasis 05/14/14 - Diverticulosis of colon (without mention of hemorrhage) - Essential hypertension, benign - GERD (gastroesophageal reflux disease) - Internal hemorrhoids without mention of complication - Other and unspecified hyperlipidemia - Other kyphoscoliosis and scoliosis - Post-operative nausea and vomiting 04/2014 - Symptomatic menopausal or female climacteric states MENOPAUSE PAST SURGICAL HISTORY Procedure Laterality Date - COLONOSCOP W/ OR W/O BRSH SPEC 06/28/05 - LAPAROSCOPIC CHOLEYCYSTECTOMY 05/14/14 ANESTHESIA difficulty due to severe post o N/V - NONE Current Outpatient Prescriptions: pravastatin (PRAVACHOL) 20 mg tablet Take 1 tablet by mouth daily at bedtime. potassium chloride ER (K-DUR, KLOR-CON) 20 mEq tablet Take 1 tablet by mouth twice daily. metoprolol tartrate, short acting, (LOPRESSOR) 50 mg tablet Take 1 tablet by mouth twice daily. hydroCHLOROthiazide (HYDRODIURIL, ESIDRIX) 25 mg tablet Take 1 tablet by mouth once daily. pantoprazole DR (PROTONIX) 20 mg tablet Take 1 tablet by mouth daily before breakfast. Take on empty stomach, 1/2 hr before meal. ibuprofen 200 mg ORAL tablet Take 1-2 tablets by mouth every 4 hours as needed. for pain. calcium carbonate 600 mg-cholecalciferol 400 units (CALTRATE- 600 PLUS VITAMIN D3) 600 mg(1,500mg) -400 unit ORAL Tab Take 1 tablet by mouth twice daily. gluc fritz/chondro fritz a/vit c/mn(GLUCOSAMINE CHONDROITIN MAXIMUM STRENGTH 500 MG-400 MG CAP) Take one(1) tablet two(2) times daily. THERAPEUTIC MULTIVITAMIN TAB Take one(1) tablet daily. FISH OIL CAP Take one(1) tablet two(2) times daily. FLAXSEED OIL 1,000 MG CAP Take one(1) tablet daily. No current facility-administered medications for this visit. ALLERGIES Allergen Reactions - Asa [Salicylates] Hives - Bactrim [Sulfametho* Rash - Tetanus Vaccines An* Swelling Social History Marital status: Spouse name: Aj Years of education: Number of children: 1 Occupational History Occupation Employer Comment retired Social History Main Topics Smoking status: Never Smoker Smokeless tobacco: Never Used Alcohol use: No Drug use: No ROS: See HPI PE: BP 130/80 Pulse 64 Temp (Src) 97.1 (Left Tympanic) Resp 20 Wt 130 lb (59.0kg) Gen: AANDOX3, NAD, non-toxic appearing, cooperative HEENT: PERRLA, EOMs intact b/l, wearing glasses, nares without drainage, pharynx without erythema, exudate, lesions, or drainage. Uvula midline. MMM, EAC and TM normal b/l Neck: No LAD, no thyromegaly, no meningismus. CV: RRR, 2/6 HSM RUSB murmur, normal s1s2? Lungs: CTA b/l, no wheezing No edema, normal pulses Skin: No rashes, lesions, or wounds on exposed skin. Severe scoliosis and thoracic kyphosis ? ASSESSMENT/PLAN: 1. BENIGN HYPERTENSION - ICD9: 401.1, ICD10: I10 (primary diagnosis) - good control - Continue current medication(s) - Encouraged dietary sodium restriction/DASH diet - Recommended regular aerobic exercise. - Recommend home blood pressure monitoring, to bring results in on next visit - Goal of BP <130/80 2. Hypokalemia - ICD9: 276.8, ICD10: E87.6 - stable, continue twice a daily dosing KCl 3. Arthritis, multiple joint involvement - ICD9: 716.99, ICD10: M12.9 - stable, continue intermittent accupuncture since she is getting relief. 4. Pure hypercholesterolemia - ICD9: 272.0, ICD10: E78.00 - suboptimal control - Continue current medication. - Encouraged following a low fat, low cholesterol diet. - Discussed the benefits of regular aerobic exercise and weight loss. - Check fasting lipid panel in 6 months 5. Scoliosis (and kyphoscoliosis), idiopathic - ICD9: 737.30, ICD10: M41.20 - stable, see above 6. Gastroesophageal reflux disease without esophagitis - ICD9: 530.81, ICD10: K21.9 - Discussed lifestyle modifications including losing weight, limiting caffeine, no meals three hours before sleep and head of bed elevation 7. Osteopenia of multiple sites - ICD9: 733.90, ICD10: M85.89 - Reviewed the need for Calcium and Vitamin D supplements and weight bearing exercise as tolerated Aguila Beebe DO Return if no improvement. Follow up with Aguila Beebe DO. Discussed risks, benefits, alternatives, and potential side effects of medications. Patient/Guardian expressed understanding and agreed with the plan. See patient instructions. Aguila Beebe DO [address] [place] [address] Referring Provider: AGUILA BEEBE [[id number]] Allergies As of Date: 10/17/2017 Noted Allergy Reaction ASA (SALICYLATES) 04/21/2005 4 - Hives BACTRIM (SULFAMETHOXAZOLE) 07/30/2012 2 - Rash TETANUS VACCINES AND TOXOID 04/21/2005 7 - Swelling Date Reviewed: 10/17/2017 Reviewed by: Maricruz Pena LPN - Fully Assessed Reason for Visit: Follow Up [171] Cmt: 6 months Primary Visit Diagnosis:BENIGN HYPERTENSION [I10] Other Visit Diagnoses:Hypokalemia [E87.6] Arthritis, multiple joint involvement [M12.9] Pure hypercholesterolemia [E78.00] Scoliosis (and kyphoscoliosis), idiopathic [M41.20] Gastroesophageal reflux disease without esophagitis [K21.9] Osteopenia of multiple sites [M85.89] Prescriptions as of 10/17/2017 Sig: PRAVASTATIN 20 MG TABLET Take 1 tablet by mouth daily * POTASSIUM CHLORIDE ER 20 MEQ * Take 1 tablet by mouth twice * METOPROLOL TARTRATE 50 MG TAB* Take 1 tablet by mouth twice * HYDROCHLOROTHIAZIDE 25 MG TAB* Take 1 tablet by mouth once d* PANTOPRAZOLE 20 MG TABLET,DEL* Take 1 tablet by mouth daily * IBUPROFEN 200 MG TABLET Take 1-2 tablets by mouth marco antonio* CALCIUM CARBONATE 600 MG (1,5* Take 1 tablet by mouth twice * GLUCOSAMINE CHONDROITIN MAXIM* Take one(1) tablet two(2) nahomy* THERAPEUTIC MULTIVITAMIN TABL* Take one(1) tablet daily. FISH OIL 500 MG CAPSULE Take one(1) tablet two(2) nahomy* FLAXSEED OIL 1,000 MG CAPSULE Take one(1) tablet daily. Problem List As Of Date 10/17/2017 Noted Resolved BENIGN HYPERTENSION [I10] Hyperlipidemia [E78.5] Scoliosis (and kyphoscoliosis), idiopathic [M41* Disorder of bone and cartilage [M89.9, M94.9] INVALID FOR* OSTEOARTHROS NOS-UNSPEC [M19.90] INVALID FOR* DIVERTICULOSIS OF COLON W/O BLEED [K57.30] INT HEMORRHOID W/O COMPL [K64.8] NONSPECIF SKIN ERUPT NEC [R21] INVALID FOR* ESOPHAGEAL REFLUX [K21.9] INVALID FOR* Rhinitis, chronic [J31.0] INVALID FOR* Counseling and coordination of care [Z71.89] INVALID FOR*12/24/2014 More... Arthritis, multiple joint involvement [M12.9] INVALID FOR* Pure hypercholesterolemia [E78.00] INVALID FOR* Gastroesophageal reflux disease without esophag*INVALID FOR* Pain in joint, multiple sites [M25.50] INVALID FOR* Medications Discontinued During This Encounter potassium chloride SR (K-DUR, KLOR-C* 05/19/2014 10/17/2017 Class: Historical Med Route: ORAL Sig: Take 1.5 tablets by mouth once daily. Disc: Reason for discontinue is not on file. nystatin (MYCOSTATIN) powder 1 Inocencio* 3 04/12/2016 10/17/2017 Route: TOPICAL Sig: Apply 1 application to affected area twice daily as needed. Disc: Reason for discontinue is not on file. Encounter Status:Closed by AGUILA BEEBE DO on 10/18/17 CBC AND DIFFERENTIAL Collected: 10/10/2017 Status: F Source: [place] 7:36 AM [facility] REPOSITORY TYPE CODE TESTS RESULT OUT OF REFERENCE UNITS RANGE LAB WBC 3.70-11.00 k/uL WBC 4.81 LAB RBC 3.90-5.20 m/uL RBC 4.84 LAB HGB 11.5-15.5 g/dL Hemoglobin 14.1 LAB HCT 36.0-46.0 % Hematocrit 44.4 LAB MCV 80.0-100.0 fL MCV 91.7 LAB MCH 26.0-34.0 pG MCH 29.1 LAB MCHC 30.5-36.0 g/dL MCHC 31.8 LAB RDWCV 11.5-15.0 % RDW-CV 13.4 LAB PLTCT 150-400 k/uL Platelet Count 260 LAB MPV 9.0-12.7 fL MPV 12.1 LAB ANEUT % Neut% 55.2 LAB AANEUT 1.45-7.50 k/uL Abs Neut 2.65 LAB ALYMP % Lymph% 28.1 LAB AALYMP 1.00-4.00 k/uL Abs Lymph 1.35 LAB AMONO % [place]% 10.4 LAB AAMONO <0.87 k/uL Abs [place] 0.50 LAB AEOS % Eosin% 4.6 LAB AAEOS <0.46 k/uL Abs Eosin 0.22 LAB ABASO % Baso% 1.7 LAB AABASO <0.11 k/uL Abs Baso 0.08 LAB AUNRBC 0 /100 WBC NRBCs 0.0 LAB ABNRBC <0.01 k/uL Absolute nRBC <0.01 LAB DTYP DTYPE Auto Diff Performed By: #### CBCDIF, CMP, LIPB #### [facility] [address] [place], [place] [address] COMP METABOLIC PANEL Collected: 10/10/2017 Status: F Source: [place] 7:36 AM [facility] REPOSITORY TYPE CODE TESTS RESULT OUT OF REFERENCE UNITS RANGE LAB TP 6.3-8.0 g/dL Protein, Total 7.5 LAB ALB 3.9-4.9 g/dL Albumin 4.0 LAB CA 8.5-10.2 mg/dL Calcium, Total 9.1 LAB TBIL 0.2-1.3 mg/dL Bilirubin, Total 0.6 LAB ALKP 32-117 U/L Alkaline Phosphatase 54 LAB AST 13-35 U/L AST 23 LAB GLU 74-99 mg/dL Glucose 90 Result Comment: The [place] Diabetes Association (ADA) provides guidance for cutoff values for fasting glucose and random glucose. The ADA defines fasting as no caloric intake for at least 8 hours. Fas ting plasma glucose results between 100 to 125 mg/dL indicate increased risk for diabetes (prediabetes). Fasting plasma glucose results greater than or equal to 126 mg/dL meet the criteria for diagnosis of diabetes. In the absence of unequivocal hyperglycemia, results should be confirmed by repeat testing. In a patient with classic symptoms of hyperglycemia or hyperglycemic crisis, random plasma glucose results greater than or equal to 200 mg/dL meet the criteria for diagnosis of diabetes. Reference: Standards of Medical Care in Diabetes 2016, [place] Diabetes Association. Diabetes Care. 2016.39(Suppl 1). LAB BUN 7-21 mg/dL BUN 12 LAB CRET 0.58-0.96 mg/dL Creatinine 0.73 LAB NA 136-144 mmol/L Sodium 139 LAB K 3.7-5.1 mmol/L Potassium 3.8 LAB CL 97-105 mmol/L Chloride 101 LAB CO2 22-30 mmol/L CO2 23 LAB AGAP 9-18 mmol/L Anion Gap 15 LAB ALT 7-38 U/L ALT 17 LAB GFRAA eGFR- Amer. >60 LAB GFRNAA . eGFR-All Other Races >60 Result Comment: eGFR (Estimated GFR) Units of measure: mL/min/1.73 meters squared eGFR is derived from the reexpressed MDRD Study equation using the following parameters: serum creatinine, age, gender and race. The creatinine assay has been calibrated to be traceable to IDMS. An eGFR <60 mL/min/1.73m2 for >3 months is consistent with chronic kidney disease. Refer to KDOQI guidelines for clinical interpretation. In patients with unstable renal function, e.g. those with acute kidney injury, the eGFR may not accurately reflect actual GFR. Performed By: #### CBCDIF, CMP, LIPB #### [facility] [address] [place] [address] LIPID PANEL, BASIC Collected: 10/10/2017 Status: F Source: [place] 7:36 AM [facility] REPOSITORY TYPE CODE TESTS RESULT OUT OF REFERENCE UNITS RANGE LAB CHOL <200 mg/dL Cholesterol 170 Result Comment: <200 mg/dL, Desirable 200-239 mg/dL, Borderline high >239 mg/dL, High LAB TRIGLY <150 mg/dL Triglyceride 65 Result Comment: <150 mg/dL, Normal 150-199 mg/dL, Borderline high 200-499 mg/dL, High >499 mg/dL, Very high LAB HDL >39 mg/dL HDL-Cholesterol 71 Result Comment: 40-59 mg/dL, Acceptable >59 mg/dL, High: Negative risk factor for coronary heart disease <40 mg/dL, Low: Positive risk factor for coronary heart disease LAB LDL <100 mg/dL LDL-Cholesterol 86 Result Comment: <100 mg/dL, Optimal 100-129 mg/dL, Near optimal/above optimal 130-159 mg/dL, Borderline high 160-189 mg/dL, High >189 mg/dL, Very high Secondary prevention optimal LDL Cholesterol levels are recommended to be < 70 mg/dL LAB NONHDL <130 mg/dL Non HDL Cholesterol 99 Result Comment: <130 mg/dL, Optimal 130-159 mg/dL, Near optimal/above optimal 160-189 mg/dL, Borderline high 190-219 mg/dL, High >219 mg/dL, Very high Secondary prevention optimal non HDL Cholesterol levels are recommended to be < 100 mg/dL LAB FT hrs Fasting Time 12 LAB VLDL <30 mg/dL VLDL Cholesterol 13 LAB TCHDL <5.10 TC:HDL Ratio 2.39 LAB LDLHDL <2.54 LDL:HDL Ratio 1.21 Result Comment: Reference: 1. National Cholesterol Education Program ATP III Guideline At-A-Glance Quick Desk Reference: National Heart, Lung, and Blood [place]. National Institutes of Health. 2001: NIH Publication No. 01-3305. 2. An International Atherosclerosis Society position paper: global recommendations for the management of dyslipidemia: executive summary, Atherosclerosis. 2014: 232(2):410-413. Performed By: #### CBCDIF, CMP, LIPB #### [facility] [address] [place], [place] [address] EMERGENCY DEPARTMENT Observed: 07/11/2017 Status: F Source: [place] SUMMARY 1:45 AM [facility] REPOSITORY [facility] Medical Records Department [address] [place] [address] Emergency Department Summary 07/10/17 2148 MR#: [id number] Acct: [id number] Name: DENAE PATHAK Delvin Rep #: [id number] : 1935 81 From: Anna Fernandez MD PCP: Aguila Beebe DO Status: DEP ER - ER Visit Summary Date of Service: 07/10/17 Chief Complaint: Fall with facial injury History of Present Illness: The patient is a 81 F who had a mechanical fall at home today. She states she caught her foot on the leg of a chair and fell forward. She struck her face. She was wearing glasses at the time they did not break. She denies loss of consciousness. She denies neck pain. She is not currently on anticoagulants. Physical Examination: Signs are remarkable for blood pressure 170/120, otherwise unremarkable. Head neck examination is significant for left periorbital edema and ecchymosis. Pupil itself is equal and reactive. Extraocular movements are intact. No intraoral injury is noted. C-spine is nontender. Heart is regular rate and rhythm. Lung sounds are clear. Abdomen is soft nontender. Neuro exam is normal. Test Results: CT scan of the head shows moderate atrophy and periventricular white matter ischemic change. No evidence of acute bleed. CT the facial bones reveals left periorbital soft tissue swelling without evidence of acute fracture. Emergency Department Course and Treatment: She declined anything for pain while here. Test results were discussed with her. She is comfortable taking Tylenol at home for pain. Treatment Plan: [] Disposition: Discharge Impression: 1. Mechanical fall 2. Facial contusion This note was generated with [employer] dictation software. It may contain incorrect words, spelling, and punctuation that were not noted in review of the chart prior to signing ED Disposition - Plan for ED Patient: Disposition: Home or Assisted Living Chief Complaint: Fall Instructions: ED Contusion Face, ED Mechanical Fall Referrals: Aguila Beebe DO [Primary Care Provider] - 1-2 Weeks What to do if you have Problems For any increased pain, shortness of breath, bleeding, nausea or vomiting, chest pain, or any unexpected problems, contact your Primary Care Provider. Call [facility] ([phone]) or report to the closest Emergency Room. Call 911 if necessary. 07/11/17 0145 <Electronically signed by Anna Fernandez MD> Date Anna Fernandez MD Cosigner Signature (If Indicated): Date CC: Aguila Beebe DO DISCHARGE INSTRUCTION Observed: 07/10/2017 Status: F Source: [place] 9:48 PM [facility] REPOSITORY [facility] Medical Records Department [address] [place] [address] Discharge Instruction 07/10/17 2148 MR#: [id number] Acct: [id number] Name: DENAE PATHAK Rep #: [id number] : 1935 81 From: Anna Fernandez MD PCP: Aguila Beebe DO Status: REG ER ED Disposition - Plan for ED Patient: Disposition: Home or Assisted Living Chief Complaint: Fall Instructions: ED Mechanical Fall, ED Contusion Face Referrals: Aguila Beebe DO [Primary Care Provider] - 1-2 Weeks What to do if you have Problems For any increased pain, shortness of breath, bleeding, nausea or vomiting, chest pain, or any unexpected problems, contact your Primary Care Provider. Call [facility] ([phone]) or report to the closest Emergency Room. Call 911 if necessary. 07/10/172147 <Electronically signed by Anna Fernandez MD> Date Anna Fernandez MD Cosigner Signature (If Indicated): Date CC: Aguila Beebe DO BRAIN/HEAD WITHOUT Observed: 07/10/2017 Status: F Source: [place] CONTRAST 8:46 PM [facility] REPOSITORY [facility] Imaging Services [address] [place] [address] Brain/Head without Contrast MR#: [id number] Acct: [id number] Name: DENAE PATHAK Rep #: [id number] : 1935 F 81 From: Philippe Rosa MD PCP: Agiula Beebe DO Status: REG ER Study: Brain/Head without Contrast Date of Exam: 07/10/17 Exam# [id number] Ordering Dr: Anna Fernandez MD STUDY: CT BRAIN WITHOUT CONTRAST REASON FOR EXAM: Female, 81 years old. Left eye bruising RADIATION DOSAGE (If Supplied By Facility): CTDIvol = ( 44.99 ) mGy, DLP = ( 745.49 ) mGycm TECHNIQUE: Transaxial CT imaging of the brain was performed without administration of intravenous contrast material. Individualized dose optimization techniques were used for this CT. COMPARISON: None. FINDINGS: Normal soft tissue structures. Normal calvarium. Calcification of cavernous carotids. Moderate atrophy and periventricular white matter ischemic changes.. Normal basal ganglia and thalami. Normal brainstem. Normal cerebellum. There is no intracranial hemorrhage. There are no findings of an acute ischemic infarction. Left periorbital soft tissue swelling without evidence for acute fracture. Postsurgical changes of the orbits. Mucosal thickening within the right posterior ethmoid air cells. CT/Brain/Head without Contrast IMPRESSION: Moderate atrophy and periventricular white matter ischemic change. No evidence for acute intracranial bleed. Electronically Signed: Philippe Rosa MD at 21:24 EST , Service support , CC: Anna Fernandez MD; Aguila Beebe DO Paraeducator: Signed SINUS/FACIAL BONE Observed: 07/10/2017 Status: F Source: [place] 8:46 PM [facility] REPOSITORY [facility] Imaging Services [address] [place] [address] Sinus/Facial Bone MR#: [id number] Acct: [id number] Name: DENAE PATHAK Rep #: [id number] : 1935 F 81 From: Philippe Rosa MD PCP: Aguila Beebe DO Status: REG ER Study: Sinus/Facial Bone Date of Exam: 07/10/17 Exam# [id number] Ordering Dr: Anna Fernandez MD STUDY: CT FACIAL BONES WITHOUT CONTRAST REASON FOR EXAM: Female, 81 years old. Trauma RADIATION DOSAGE (If Supplied By Facility): CTDIvol = ( 29.38 ) mGy, DLP = ( 510.73 ) mGycm TECHNIQUE: The patient was scanned in a multi detector CT scanner. Sagittal and coronal images were reconstructed. Individualized dose optimization techniques were used for this CT. COMPARISON: None. FINDINGS: Left periorbital soft tissue swelling.. Normal orbital russell and orbital contents. Normal nasal bones and anterior nasal spine. Normal facial bones. There is no demonstrated fracture. Mucous retention cyst or polyp within the left maxillary sinus and right posterior ethmoid air cells. CT/Sinus/Facial Bone IMPRESSION: Left periorbital soft tissue swelling without evidence for acute facial bone fracture. Electronically Signed: Philippe Rosa MD at 21:26 EST , Service support , CC: Anna Fernandez MD; Aguila Beebe DO Paraeducator: Signed ALLERGIES ALLERGIES DATE TYPE / NAME / CODE REACTION SEVERITY SOURCE CODE 04/30/2018 Drug aspirin/[id number](RXN Hives Unknown [place] Allergy/41 ORM) [facility] [id number]([facility]) Repository 04/30/2018 Drug tetanus immune Rash Unknown [place] Allergy/41 globulin/[id number](RX Community [id number]([facility]) Repository 07/30/2012 DRUG SULFAMETHOXAZOLE RASH [place] INGREDI/41 Clinic Main [id number]([facility] OME CT) Repository 04/21/2005 Drug SALICYLATES HIVES [place] Class/4195 Clinic Main [address]481([facility] ED CT) Repository 04/21/2005 Drug TETANUS VACCINES AND SWELLING [place] Class/4195 TOXOID Clinic Main [address]85([facility] ED CT) Repository ENCOUNTERS ENCOUNTERS ADMIT/DISCHARGE ACCOUNT ADMITTING ENCOUNTER LOCATION SOURCE NUMBER CLASS 06/01/2018/06/01/19 [id number] Ambulatory [address] Main [place] Repository 05/16/2018/05/16/20 [id number] Ambulatory [place] 18 [facility] Main [place] Repository 05/14/2018/05/16/20 [id number] Ambulatory [place] 18 [facility] Main [place] Repository 05/02/2018/05/03/20 [id number] Ambulatory [address] Main [place] Repository 04/30/2018/04/30/20 [id number] Emergency [place] ing:ED Repository 04/05/2018/04/05/20 [id number] Emergency Brian[address] ing:ED Repository 03/21/2018/03/21/20 [id number] Ambulatory [address] Main [place] Repository 03/21/2018/03/23/20 [id number] Ambulatory [address] Repository 02/14/2018 [id number] Ambulatory BMSBuilding:W [facility] Repository 02/14/2018 [id number] Ambulatory [facility] Hospital ing:CVS Repository 01/31/2018 [id number] Ambulatory [facility] Hospital ing:LAB Repository 01/31/2018/02/01/20 [id number] Ambulatory BMSBuilding:B [place] [facility] Repository 01/27/2018 [id number] Ambulatory BMSBuilding:Arminda Torres [facility] Repository 01/24/2018/01/30/20 [id number] Ambulatory [address] Repository 01/17/2018/01/18/20 [id number] Ambulatory [address] Repository 12/21/2017/12/22/19 [id number] Ambulatory [address] Repository 12/21/2017/12/23/19 [id number] Ambulatory [address] Repository 11/21/2017/12/14/19 [id number] Clint [facility] Inpatient [place] [address] ing:TCURoom: Repository [id number]: 2 11/21/2017 [id number] Ambulatory [facility] ing:CVS Repository 11/21/2017 [id number] Ambulatory BMSBuilding:W [facility] Repository 11/17/2017 [id number] [place], Ambulatory BMSBuilding:Arminda Briscoe MS.[facility] Repository 11/17/2017 [id number] [place], Ambulatory BMSBuilding:Arminda Briscoe [facility] Repository 11/17/2017 [id number] [place], Ambulatory BMSBuilding:B Brian Briscoe MS.[facility] Repository 11/17/2017 [id number] [place], Ambulatory BMSBuilding:Arminda Briscoe MS.[facility] Repository 11/17/2017/11/22/19 [id number] [place], Inpatient [facility] 18 [facility] Encounter [facility] ing:PCURoom: Repository [id number]: 1 11/17/2017 [id number] [place], Ambulatory BMSBuilding:Arminda Briscoe MS.[facility] Repository 11/16/2017 [id number] [place], Ambulatory BMSBuilding:Arminda Briscoe MS.[facility] Repository 11/16/2017/11/18/19 [id number] Ambulatory [address] Repository 11/16/2017/11/22/19 [id number] Ambulatory BMSBuilding:W Brian 18 [facility] Repository 10/17/2017/10/19/19 [id number] Ambulatory [address] Repository 10/10/2017/10/11/19 [id number] Ambulatory [address] Repository 07/10/2017/07/10/19 [id number] Emergency [address] ing:ED Repository PAYERS PAYERS ENCOUNTER GUARANTOR PAYER SUBSCRIBER SOURCE 04/30/2018 DENAE [id number] Primary Insurance:MMO DENAE ZAVALA MEDICAREPolicy MILLERDOB: [facility] BLVDAPARTMENT Number: [id number] [id number] Repository [address]Svm: (330) Date:[id number] [phone] () [address] [place], [place] [address]WP: 04/30/2018 Secondary NOT GIVENUNK [place] Insurance:SELF PAY [facility] Number: Effective Repository Date:2018-04-30 04/05/2018 DENAE [id number] Primary Insurance:MMO DENAE ZAVALA MEDICAREPolicy MILLERDOB: [facility] BLVDAPARTMENT Number: [id number] [id number] Repository [address]Kmz: (330) Date:7785-35-69GE [phone] () [address] [place] [address]OM: 04/05/2018 Secondary NOT GIVENUNK [place] Insurance:SELF PAY [facility] Number: Effective Repository Date:2018-04-05 02/14/2018 DENAE [id number] Primary Insurance:MMO DENAE R Brian ZAVALA MEDICAREPolicy MILLERDOB: [facility] BLVDAPARTMENT Number: [id number] [id number] Repository [address]Tam: (330) Date:6345-94-97YO [phone] () [address] [place] [address]XP: 02/14/2018 Secondary NOT GIVENUNK [place] Insurance:SELF PAY [facility] Number: Effective Repository Date:2018-02-14 02/14/2018 DENAE [id number] Primary Insurance:MMO DENAE R Brian ZAVALA MEDICAREPolicy MILLERDOB: [facility] BLVDAPARTMENT Number: [id number] [id number] Repository [address]Udf: (330) Date:3136-66-99PN [phone] () [address] [place] [address]QI: 02/14/2018 Secondary NOT GIVENUNK Brian Insurance:SELF PAY [facility] Number: Effective Repository Date:2018-01-31 01/31/2018 AJ [id number] Primary Insurance:MMO DENAE R Brian [address], MEDICAREPolicy MILLERDOB: [facility] [place] [address]Qeu: (330) Number: [id number] Hospital [phone] () [id number] Repository Date:[id number] [address] [address]MF: 01/31/2018 Secondary NOT GIVENUNK [place] Insurance:SELF PAY [facility] Number: Effective Repository Date:2018-01-31 01/31/2018 AJ [id number] Primary Insurance:MMO DENAE R [place] [address], MEDICAREPolicy MILLERDOB: [place] [address]Iyx: (330) Number: [id number] Hospital [phone] () [id number] Repository Date:[id number] [address]DQ: 01/31/2018 Secondary NOT GIVENUNK Brian Insurance:SELF PAY [facility] Number: Effective Repository Date:2018-01-31 01/27/2018 AJ [id number] Primary Insurance:MMO DENAE R [place] [address], MEDICAREPolicy MILLERDOB: [place] [address]Knz: (330) Number: [id number] Hospital [id number] () [id number] Repository Date:2857-25-83KL [address] [address]DR: 01/27/2018 Secondary NOT GIVENUNK [place] Insurance:SELF PAY [facility] Number: Effective Repository Date:2018-01-27 11/21/2017 DENAE [id number] Primary Insurance:MMO DENAE R Brian [facility] MILL[facility]: [facility] BLVDAPARTMENT Number: [id number] [id number] Repository [address]Lgk: (330) Date:6241-61-07XY [phone] () [address] [place] [address]IH: 11/21/2017 Secondary NOT GIVENUNK [place] Insurance:SELF PAY [facility] Number: Effective Repository Date:2017-11-21 11/21/2017 Aj [id number] Primary NOT GIVENUNK [place], Insurance:SELF PAY [facility] [place] [address]Pxz: (330) [facility] [phone] (HP) Number: Effective Repository Date:2017-11-21 11/21/2017 AJ [id number] Primary Insurance:MMO DENAE R Brian [place], MEDICAREPolicy MILLERDOB: [place] [address]Dmk: (330) Number: [id number] Hospital [id number] () [id number] Repository Date:7909-03-64ZM [address] [place] [address]BP: 11/21/2017 Secondary DENAE R [place] Insurance:AARPPolicy MILLERDOB: [facility] Number: [id number] Hospital [id number] Repository Date:7113-78-41TZ [facility] [address] [address]KT: 11/21/2017 Tertiary NOT GIVENUNK [place] Insurance:SELF PAY [facility] Number: Effective Repository Date:2017-11-21 11/17/2017 Aj Cortes Primary Insurance:MMO DENAE R [place] [address], MEDICAREPolicy MILLERDOB: [place] [address]Nfa: (330) Number: [id number] Hospital [phone] () [id number] Repository Date:2424-25-18VN [address] [address]FQ: 11/17/2017 Secondary NOT GIVENUNK [place] Insurance:SELF PAY [facility] Number: Effective Repository Date:2017-11-17 11/17/2017 Aj Cortes Primary Insurance:MMO DENAE R [place], MEDICAREPolicy MILLERDOB: [place] [address]Tku: (330) Number: [id number] Hospital [phone] () [id number] Repository Date:0657-31-47RP [address] [address]QJ: 11/17/2017 Secondary NOT GIVENUNK [place] Insurance:SELF PAY [facility] Number: Effective Repository Date:2017-11-17 11/17/2017 Aj Stein5 Primary Insurance:MMO DENAE R Brian [place] [address], MEDICAREPolicy MILLERDOB: [place] [address]Yaz: (330) Number: [id number] Hospital [phone] () [id number] Repository Date:3247-69-50SV [address] [address]LB: 11/17/2017 Secondary NOT GIVENUNK [place] Insurance:SELF PAY [facility] Number: Effective Repository Date:2017-11-17 11/17/2017 Aj Cortes Primary Insurance:MMO DENAE R Brian [place], MEDICAREPolicy MILLERDOB: [place] [address]Xox: (330) Number: [id number] [id number] () [id number] Repository Date:[id number] [address] [place] [id number]: 11/17/2017 Secondary NOT GIVENUNK Isabella Insurance:SELF PAY [facility] Number: Effective Repository Date:2017-11-17 11/17/2017 AJ STEIN5 Primary Insurance:MMO DENAE R Brian [place], MEDICAREPolicy MILLERDOB: [place] [address]Tca: (330) Number: [id number] () [id number] Repository Date:[id number] [address] [address]SR: 11/17/2017 Secondary DENAE R Brian Insurance:AARPPolicy MILLERDOB: [place] Number: [id number] [id number] Repository Date:[id number], [place] [address]NL: 11/17/2017 Tertiary NOT GIVENUNK Brian Insurance:SELF PAY [facility] Number: Effective Repository Date:2017-11-16 11/17/2017 Aj Stein5 Primary Insurance:MMO DENAE R Isabella [place], MEDICAREPolicy MILLERDOB: [place] [address]Zgf: (330) Number: [id number] [facility] [id number] () [id number] Repository Date:[id number] [address] [place] [id number]: 11/17/2017 Secondary NOT GIVENUNK Brian Insurance:SELF PAY [facility] Number: Effective Repository Date:2017-11-17 11/16/2017 Aj Stein5 Primary Insurance:MMO DENAE R Brian [place], MEDICAREPolicy MILLERDOB: [place] [address]Djm: (330) Number: [id number] [phone] () [id number] Repository Date:[id number] [address] [address]PW: 11/16/2017 Secondary NOT GIVENUNK Isabella Insurance:SELF PAY [facility] Number: Effective Repository Date:2017-11-16 11/16/2017 AJ STEIN5 Primary Insurance:MMO DENAE R Brian [facility]AGE [facility], MEDICAREPolicy MILLERDOB: [place] [address]Vzt: (330) Number: [id number] [phone] () [id number] Repository Date:[id number] [address] [address]ZT: 11/16/2017 Secondary NOT GIVENUNK Brian Insurance:SELF PAY [facility] Number: Effective Repository Date:2017-11-16 07/10/2017 Aj Stein5 Primary Insurance:MMO DENAE R Isabella Carriage MEDICAREPolicy MILLERDOB: [place] Number: [id number] [address]Vvd: 330 [id number] Repository [phone] () Date:[id number] [facility] [address] [place] [id number]: 07/10/2017 Secondary NOT GIVENUNK Isabella Insurance:SELF PAY [facility] Number: Effective Repository Date:2017-07-10
== END 2018-04-30 22:49 | disposition home or self-care (01) ==
LOC: ED 22:43
PROVIDERS: Emergency Provider Emergency Medicine; Family Provider Student in an Organized Health Care Education/Training Program; PCP Student in an Organized Health Care Education/Training Program
DX: I10 Essential (primary) hypertension (principal); M79.606 Pain in leg, unspecified; G89.29 Other chronic pain; Z86.73 Personal history of transient ischemic attack (TIA), and cerebral infarction without residual deficits; Z79.899 Other long term (current) drug therapy
CPT/HCPCS: 99283

== ENCOUNTER → 2020-02-14 12:42 | Outpatient (CLI) | payer MEDICARE, SELFPAY ==
[2020-02-04 12:30] VITALS: BMI 20.1
--- NOTE | 2020-02-14 12:44 | ECHOD_ITS ---
Reason For Study: ATRIAL FIB-FLUTTER Procedure This was a 2D Doppler, Color Flow transthoracic echocardiogram. Exam performed in department. Left Ventricle Normal LV size. Left ventricular systolic function is normal. The estimated ejection fraction is 55 %. Stage 1 diastolic dysfunction. No regional wall motion abnormalities noted. Right Ventricle Normal RV size. Normal systolic function. Atria The left atrium is moderately enlarged. Normal right atrium. Mitral Valve There is mild mitral annular calcification. Mild (1+) eccentric mitral valve insufficiency. Tricuspid Valve Normal tricuspid valve. Mild (1+) tricuspid valve insufficiency. Pulmonary artery systolic pressure is 40 mmHg. Aortic Valve Peak aortic valve gradient 25 mmHg. Mean aortic valve gradient 16 mmHg. Mild aortic stenosis. Pericardium/Pleural Trivial pericardial effusion. MMode/2D Measurements & Calculations LVIDd: 3.7 cm IVSd: 0.97 cm LVOT diam: 2.0 cm LVIDs: 2.5 cm LVPWd: 0.99 cm LVOT area: 3.2 cm2 RVDd: 3.3 cm FS: 31.9 % Ao root diam: 3.2 cm LAV(MOD-bp): 97.4 ml LVAd ap4: 20.2 cm2 LAV(MOD-bp) Indexed: 60.1 ml/m2 EDV(MOD-sp4): 49.5 ml LAV(MOD-sp2): 99.1 ml EDV(sp4-el): 51.3 ml LAV(MOD-sp4): 88.3 ml LVAs ap4: 11.7 cm2 ESV(MOD-sp4): 18.9 ml ESV(sp4-el): 19.6 ml EF(MOD-sp4): 61.9 % EF(sp4-el): 61.9 % SV(MOD-sp4): 30.6 ml SV(sp4-el): 31.8 ml LA A4 area: 27.8 cm2 LA dimension(2D): 5.5 cm RA A4 area: 25.9 cm2 Doppler Measurements & Calculations MV E max domitila: 152.2 cm/sec Ao V2 max: 251.1 cm/sec LV V1 max: 73.7 cm/sec Ao max P.3 mmHg LV V1 max P.2 mmHg Ao V2 mean: 189.9 cm/sec LV V1 mean P.3 mmHg Ao mean P.8 mmHg LV V1 mean: 52.7 cm/sec Ao V2 VTI: 56.0 cm LV V1 VTI: 16.2 cm DYLAN(I,D): 0.92 cm2 DYLAN(V,D): 0.93 cm2 SV(LVOT): 51.2 ml PA V2 max: 67.3 cm/sec TR max domitila: 302.6 cm/sec TR max P.7 mmHg Interpretation Summary Normal LV size. Left ventricular systolic function is normal. The estimated ejection fraction is 55 %. Stage 1 diastolic dysfunction. Mean aortic valve gradient 16 mmHg. Mild (1+) eccentric mitral valve insufficiency. Mild aortic stenosis. Compared to prior study, there is no significant change. Ordering Physician: Juwan Whitlock Referring Physician: KATARZYNA MAYFIELD Performed By: Dorota Alva RDCS
== END ==
PROVIDERS: PCP Student in an Organized Health Care Education/Training Program; Referring Provider Internal Medicine Cardiovascular Disease; Visit Provider Internal Medicine Cardiovascular Disease
DX: R06.00 Dyspnea, unspecified (principal); I48.91 Unspecified atrial fibrillation; I48.92 Unspecified atrial flutter
CPT/HCPCS: 93306

== ENCOUNTER → 2020-02-28 12:01 | Outpatient (CLI) | payer MEDICARE, SELFPAY ==
[2020-02-28 11:21] VITALS: BMI 20.1
[2020-02-28 13:18] LABS: Anion Gap 4 (5-15); BUN 14 mg/dL (7-18); BUN/Creat Ratio 17.1 RATIO (10-20); Calcium,Total 8.4 mg/dL (8.5-10.1); Chloride 104 mmol/L (98-107); Creatinine, Serum 0.82 mg/dL (0.55-1.02); EST Glomerular Filtration Rate 71 mL/min (>60); Est Glom Filt Rate - Afr Amer 86 mL/min (>60); Glucose 97 mg/dL (74-106); Potassium 3.6 mmol/L (3.5-5.1); Sodium Level 140 mmol/L (136-145)
== END ==
PROVIDERS: PCP Student in an Organized Health Care Education/Training Program; Referring Provider Physician Assistant Medical; Visit Provider Physician Assistant Medical
DX: I10 Essential (primary) hypertension (principal); I48.0 Paroxysmal atrial fibrillation; I35.0 Nonrheumatic aortic (valve) stenosis; E78.5 Hyperlipidemia, unspecified
CPT/HCPCS: 36415; 80048

== ENCOUNTER → 2020-05-29 11:30 | Outpatient (CLI) | payer MEDICARE, SELFPAY ==
[2020-02-28 11:21] VITALS: BMI 20.1
--- NOTE | 2020-05-29 11:46 | RAD_ITS ---
STUDY: X-RAY CHEST REASON FOR EXAM: Female, 84 years old. Coughing at night-chronic -- SOB TECHNIQUE: Single AP portable view of the chest. COMPARISON: None. FINDINGS: The lungs are clear and expanded. There is no demonstrated pleural abnormality. Normal size heart. Normal mediastinum and morelia. Normal visualized pulmonary arteries. There is atherosclerotic calcification of the aortic arch with tortuosity. There is a levoscoliosis of the thoracic spine. Normal visualized ribs, clavicles, and shoulders. There is no demonstrated abnormality of the visualized soft tissue structures of the upper abdomen. RAD/Chest PA and Lateral IMPRESSION: Degenerative changes, as described above. No demonstrated acute cardiopulmonary process. Electronically Signed: Mady Brown, at 5:07 EST Tel , Service support ,
[2020-05-29 12:41] LABS: Absolute Neutrophil Count 3.9 X10^3/uL (2.0-7.7); Basophil# 0.07 X10^3/uL; Basophil% 1.1 % (0-1); Eosinophil# 0.33 X10^3/uL; Hematocrit 46.5 % (37-47); Hemoglobin 14.7 g/dL (12.0-15.0); Lymphocyte % 25.6 % (19-41); Mean Corp Hgb Conc 31.6 g/dL (32-36); Mean Corpuscular Volume 94.9 fL (81-99); Mean Platelet Vol. 12.1 fl (6.2-12.0); Monocyte# 0.63 X10^3/uL; Monocyte% 9.5 % (0-10); NRBC Flagged by Analyzer 0 % (0-5); Neutrophil # 3.87 X10^3/uL (2.7-7.7); Neutrophil % 58.3 % (47-70); Platelet Count 250 K/mm3 (150-450); RBC Distribution Width CV 13.5 % (11.6-14.6); RBC Distribution Width SD 47.1 fl (35.1-43.9); White Blood Count 6.6 K/mm3 (4.4-11.0)
[2020-05-29 13:03] LABS: Anion Gap 4 (5-15); BUN 16 mg/dL (7-18); Calcium,Total 8.4 mg/dL (8.5-10.1); Chloride 101 mmol/L (98-107); EST Glomerular Filtration Rate 72 mL/min (>60); Est Glom Filt Rate - Afr Amer 87 mL/min (>60); Glucose 102 mg/dL (74-106); Potassium 3.5 mmol/L (3.5-5.1); Sodium Level 138 mmol/L (136-145)
[2020-05-29 13:04] LABS: BNP,B-Type NATRIURETIC PEPTIDE 559.1 pg/mL (0-100)
== END ==
PROVIDERS: PCP Student in an Organized Health Care Education/Training Program; Referring Provider Physician Assistant Medical; Visit Provider Physician Assistant Medical
DX: R05 Cough (principal); R06.00 Dyspnea, unspecified
CPT/HCPCS: 36415; 71046; 80048; 83880; 85025

== ENCOUNTER 2020-08-19 22:45 | Emergency (ER) | payer MEDICARE, SELFPAY ==
[2020-02-28 11:21] VITALS: BMI 20.1
[2020-08-19 22:46] VITALS: BP 159/103; PULSE 70; RESP 15; TEMP 36.2; O2SAT 97; BMI 22.7
--- NOTE | 2020-08-19 22:52 | EKG12_ITS ---
Test Reason : DYSRYTHMIA Blood Pressure : / mmHG Vent. Rate : 068 BPM Atrial Rate : 098 BPM P-R Int : 000 ms QRS Dur : 088 ms QT Int : 392 ms P-R-T Axes : 000 -80 029 degrees QTc Int : 416 ms Atrial fibrillation Left axis deviation Incomplete right bundle branch block Poor R wave progression Abnormal ECG Confirmed by REAL SLOAN, INDIRA ([id number]), sports editor RICKEY ENGLAND ([id number]) on 08/21/2020 12:47:44 PM Referred By: SHARA Confirmed By:INDIRA NOBLE MD
--- NOTE | 2020-08-19 22:52 | CT_ITS ---
STUDY: CT BRAIN WITHOUT CONTRAST REASON FOR EXAM: Female, 84 years old. fall, headache RADIATION DOSAGE (If Supplied By Facility): CTDIvol = ( 44.99 ) mGy, DLP = ( 846.73 ) mGycm TECHNIQUE: Transaxial CT imaging of the brain was performed without administration of intravenous contrast material. Individualized dose optimization techniques were used for this CT. COMPARISON: April 05, 2018. FINDINGS: Normal soft tissue structures. Normal calvarium. Normal size ventricles and extra-axial spaces for the patient''s age. There are areas of decreased attenuation within the white matter tracts of the supratentorial brain, consistent with microvascular disease changes. 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 Normal thalami. Normal brainstem. Normal cerebellum. There is no intracranial hemorrhage. There are no findings of an acute ischemic infarction. Total opacification of the right posterior ethmoid air cells unchanged. 1.2 cm left maxillary sinus mucous retention cyst. CT/Brain/Head without Contrast IMPRESSION: No acute cardiopulmonary disease. 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 Chronic right posterior ethmoid sinusitis. Electronically Signed: Mariano Mancini MD at 23:54 EDT , Service support ,
--- NOTE | 2020-08-19 22:55 | ED.DCSUM_ITS ---
- ER Visit Summary Date of Service: 08/19/20 Chief Complaint: Elevated blood pressure History of Present Illness: The patient is a 84 F who comes in [facility] with a complaint of elevated pressure. When I asked her what her blood pressure reading was at home she tells me is over 100. She states is been going up and down at home. She denies any chest pain or shortness of breath. She is on antihypertensives and has been compliant with taking these. Her PCP recently doubled her lorazepam this week. She did fall yesterday and once today. She did hit her head. She has no LOC. She complaining of no neck pain. The patient does have history of atrial fibrillation and is on Eliquis. Physical Examination: Vital signs reviewed. She does have a small hematoma to the left forehead. HEENT exam unremarkable. Heart is irregularly irregular rhythm without murmurs. Lungs are clear to auscultation. Abdomen is soft and nontender. C-spine and back are all nontender. Extremities reveal no edema. Skin exam normal. Neurologic exam normal. Test Results: EKG was atrial fibrillation with a rate of 68. There were nonspecific ST-T wave changes noted. Labs are unremarkable aside for potassium of 5.5 but the specimen was hemolyzed. CT scan of the head shows old sinusitis and an old lacunar infarct. There were no other acute findings. Emergency Department Course and Treatment: The patient's blood pressure c urrently is 149/84. She is resting comfortably. Grandson is now at the bedside. He states that the blood pressure was 180/110 at home. The patient had no chest pain at the time. He tells me that the patient did take an extra dose of Lasix 2 days ago. She did have her lorazepam increased from 0.5 to 1 mg this week. This is likely the cause of her falls. Educated them to decrease the dose back to 0.5 mg. The patient will maintain hydration at home and they will call the PCP for follow-up Treatment Plan: [] Disposition: Discharge Impression: Hypertension, falls This note was generated with [employer] dictation software. It may contain incorrect words, spelling, and punctuation that were not noted in review of the chart prior to signing ED Disposition - Plan for ED Patient: Disposition: Home or Assisted Living Instructions: ED Hypertension, Established Referrals: Aguila Beebe DO [Primary Care Provider] -
[2020-08-19 23:11] LABS: Absolute Lymphocyte Count 2.38 X10^3/uL (0.83-4.51); Basophil# 0.07 X10^3/uL; Basophil% 0.9 % (0-1); Eosinophil# 0.32 X10^3/uL; Eosinophils% 4.2 % (0-5); Hematocrit 45.6 % (37-47); Hemoglobin 14.4 g/dL (12.0-15.0); Lymphocyte # 2.38 X10^3/ul (4.0); Lymphocyte % 30.9 % (19-41); Mean Corp Hgb Conc 31.6 g/dL (32-36); Mean Corpuscular Hgb 30.2 pg (27.0-32.0); Mean Corpuscular Volume 95.6 fL (81-99); Monocyte# 0.89 X10^3/uL; Monocyte% 11.6 % (0-10); NRBC Flagged by Analyzer 0 % (0-5); Platelet Count 225 K/mm3 (150-450); RBC Distribution Width CV 13.9 % (11.6-14.6); RBC Distribution Width SD 49.2 fl (35.1-43.9); Red Blood Count 4.77 M/mm3 (4.2-5.4); White Blood Count 7.7 K/mm3 (4.4-11.0)
[2020-08-19 23:46] LABS: Anion Gap 2 (5-15); BUN 16 mg/dL (7-18); BUN/Creat Ratio 21.8 RATIO (10-20); Calcium,Total 8.6 mg/dL (8.5-10.1); Chloride 105 mmol/L (98-107); Creatinine, Serum 0.73 mg/dL (0.55-1.02); EST Glomerular Filtration Rate 80 mL/min (>60); Est Glom Filt Rate - Afr Amer 97 mL/min (>60); Estimated Creatinine Clearance 37.01 ml/min; Glucose 96 mg/dL (74-106); Potassium 5.5 mmol/L (3.5-5.1); Sodium Level 136 mmol/L (136-145)
== END 2020-08-20 00:11 | disposition home or self-care (01) ==
PROVIDERS: Emergency Provider Emergency Medicine; PCP Student in an Organized Health Care Education/Training Program
DX: I10 Essential (primary) hypertension (principal); R29.6 Repeated falls; I48.91 Unspecified atrial fibrillation; Z79.01 Long term (current) use of anticoagulants; Z79.899 Other long term (current) drug therapy; Z86.73 Personal history of transient ischemic attack (TIA), and cerebral infarction without residual deficits
CPT/HCPCS: 70450; 80048; 84484; 85025; 93005; 99285; A4216

== ENCOUNTER 2020-08-31 04:25 | Inpatient (IN) | payer MEDICARE, SELFPAY ==
[2020-08-31] VITALS (11 sets, daily range): BP systolic 132–160; BP diastolic 73–106; PULSE 60–108; RESP 12–23; TEMP 36.2–37.1; O2SAT 95–97; BMI 22.6; BMI 21.7
--- NOTE | 2020-08-31 04:42 | CT_ITS ---
STUDY: CT BRAIN WITHOUT CONTRAST REASON FOR EXAM: Female, 84 years old. injury on eliquis RADIATION DOSAGE (If Supplied By Facility): CTDIvol = ( 44.99 ) mGy, DLP = ( 829.85 ) mGycm TECHNIQUE: Transaxial CT imaging of the brain was performed without administration of intravenous contrast material. Individualized dose optimization techniques were used for this CT. COMPARISON: 08/19/2020. FINDINGS: Normal soft tissue structures. Normal calvarium. There is mild cerebral atrophy with widening of the extra-axial spaces and ventricular dilatation. There are areas of decreased attenuation within the white matter tracts of the supratentorial brain, consistent with microvascular disease changes. Normal basal ganglia and thalami. Normal brainstem. Normal cerebellum. There is atherosclerotic calcification of the vertebral and cavernous carotid arteries.. There is no intracranial hemorrhage. There are no findings of an acute ischemic infarction. There is a polyp or retention cyst in the left maxillary sinus and there is chronic opacification of right posterior ethmoid air cell. There is no evidence for acute sinusitis. CT/Brain/Head without Contrast IMPRESSION: Chronic involutional changes of the brain. No demonstrated acute intracranial process. Electronically Signed: Liam Miller MD at 7:18 EDT , Service support ,
--- NOTE | 2020-08-31 04:43 | EKG12_ITS ---
Test Reason : WEAKNESS Blood Pressure : / mmHG Vent. Rate : 066 BPM Atrial Rate : 357 BPM P-R Int : 000 ms QRS Dur : 094 ms QT Int : 418 ms P-R-T Axes : 000 -85 040 degrees QTc Int : 438 ms Atrial fibrillation Left axis deviation Incomplete right bundle branch block Abnormal ECG Confirmed by URSULA SLOAN, ELIANA ([id number]), greeting card editor DUNCAN NGO ([id number]) on 08/31/2020 2:26:44 PM Referred By: REMY Confirmed By:ELIANA VERGARA MD
--- NOTE | 2020-08-31 04:43 | CT_ITS ---
STUDY: CT ABDOMEN AND PELVIS WITHOUT CONTRAST REASON FOR EXAM: Female, 84 years old. flank injury. Status post fall. RADIATION DOSAGE (If Supplied By Facility): CTDIvol = ( 10.59 ) mGy, DLP = ( 520.99 ) mGycm TECHNIQUE: Transaxial images were obtained from the dome of the diaphragm to the symphysis pubis without oral contrast, and without intravenous contrast. Sagittal and coronal images were reconstructed. Sensitivity for subtle traumatic injury to solid organs is limited by lack of IV contrast. Individualized dose optimization techniques were used for this CT. COMPARISON: None. FINDINGS: There is mild atelectasis in the visualized posterior lung bases. The heart is enlarged. Normal liver. There is non-visualization of the gallbladder, which may be secondary to either contraction or a prior cholecystectomy. Normal spleen. Normal pancreas. Normal bilateral adrenal glands. Normal right kidney. Normal left kidney. There is a large hiatal hernia. Normal small intestine. There are multiple colonic diverticula consistent with diverticulosis. There is prominent colonic feces, which may represent constipation. The appendix is seen on axial images 96-98 and it appears normal. There is diffuse atherosclerotic calcification of the abdominal aorta with elongation and tortuosity, but without a demonstrated aneurysm. Normal inferior vena cava. Normal retroperitoneum. Normal urinary bladder. Normal abdominal wall. There are acute traumatic fractures through the visualized posterior segments of the left 10th, 11th, and 12th ribs There is lumbar levoscoliosis with multilevel degenerative changes. CT/Abdomen/Pelvis without Cont IMPRESSION: Acute traumatic fractures of the posterior segments of the left 10th, 11th, and 12th ribs. No other visible evidence for significant acute internal injury. Large hiatal hernia. Colonic diverticulosis, without evidence for acute diverticulitis. Atherosclerosis. Nonvisualization of the gallbladder. Electronically Signed: Liam Miller MD at 7:27 EDT , Service support ,
--- NOTE | 2020-08-31 04:46 | ED.VIS.GEN ---
History of Present Illness Chief Complaint: Weakness Informant: Patient, Family Narrative: 84-year-old female presents with dizziness, frequent falls, and increasing hallucinations. Family states that the hallucinations have been ongoing for about a year. She has not been given a diagnosis of dementia or schizophrenia. She does have a history of depression. She was recently seen in the emergency department at the beginning of the month with falls and was felt that that was related to her increased dose of Ativan which has been subsequently reduced. Family states however that they have not really seen a change since that time. He states that the hallucinations have gotten worse over the past several days. Today she states she was dizzy and fell against the wall. She notes that she struck her head and her left flank area. She notes skin tears to the left arm. She states that she is allergic to tetanus and does not want a update on her vaccination. No fevers. No diarrhea. Family has taken control of her medications. The caregiver that is with her tonight states that he has moved in with her and he is disabled. His girlfriend is also moved in with her. She currently resides at home the family would like to keep her at home but recognize that it is becoming increasingly hard to keep her safe. - Past Medical History (1) CVA (cerebral vascular accident) Status: Chronic Comment: Acute left cerebellar infarct (small) (2) Essential (primary) hypertension Status: Chronic (3) Hyperlipidemia Status: Chronic (4) Non-rheumatic aortic stenosis Status: Chronic (5) PAF (paroxysmal atrial fibrillation) Status: Chronic (6) Secondary pulmonary arterial hypertension Status: Chronic Past Medical History - Allergies and Home Meds Allergies/Adverse Reactions: Allergies aspirin Allergy (Verified 08/19/20 22:52) Hives tetanus immune globulin Allergy (Verified 08/19/20 22:52) Rash sulfamethoxazole [From Bactrim] Adverse Reaction (Verified 08/19/20 23:21) Rash trimethoprim [From Bactrim] Adverse Reaction (Verified 08/19/20 23:21) Rash Primary Care Physician: Aguila Beebe DO [Primary Care Provider] - Surgical History: - - Breast biopsy otherwise unremarkable Lives: With Family Smoking Status: Never smoker Drugs: None - Family History Sibling Family History: Family History (Last Reviewed 02/28/20 @ 12:00 by Briana DEGROOT, PA) Mother Heart disease CVA (cerebral vascular accident) Family History: Reports: - - Gallstones Maternal Family History: Family History (Last Reviewed 02/28/20 @ 12:00 by Briana DEGROOT, PA) Mother Heart disease CVA (cerebral vascular accident) Family History: Reports: No pertinent history Paternal Family History: Family History (Last Reviewed 02/28/20 @ 12:00 by Briana DEGROOT, PA) Mother Heart disease CVA (cerebral vascular accident) Family History: Reports: No pertinent history Review of Systems General: Reports: Malaise. Denies: Chills, Fever, Sweats Eyes: Denies: Visual changes - bilaterally, Diplopia ENT: Denies: Rhinorrhea, Sore throat Cardiovascular: Denies: Chest pain, Palpitations Respiratory: Denies: Dyspnea, Cough, Dyspnea on exertion Gastrointestinal: Denies: Abdominal pain, Nausea, Vomiting, Diarrhea, Melena, Hematochezia Genitourinary: Denies: Dysuria, Hematuria, Frequency Musculoskeletal: Denies: Back pain, Extremity Pain Skin: Reports: Wounds. Denies: Rash Neurological: Reports: - - Dizziness. Denies: Headache, Weakness, Numbness Psych: Reports: Depression, - - Auditory and visual hallucinations Physical Exam Vital Signs/Narrative: Vital Signs Temp Pulse Resp BP Pulse Ox 08/31/20 04:30 62 16 132/81 H 97 08/31/20 04:26 98.8 F 60 16 153/73 H 97 Inital Vital Signs reviewed: Yes General: Well nourished, Well developed, No Acute Distress Head: Normocephalic, Trauma - Hematoma/contusions the left forehead/scalp Eyes: Perrl, EOMI ENT: Moist mucous membranes, No rhinorrhea Neck: Supple, Nontender Cardiovascular: No murmurs, Irregular - Newly irregular rhythm Respiratory: No distress, CTA bilaterally, Chest nontender Abdomen: Soft, Nontender, Nondistended, Normal bowel sounds Back: - - Tender to palpation over the lower left posterior ribs/flank region Extremities: Nontender, No edema Skin: Normal color, No rash, Trauma - x2 Small less than 1 cm skin tears of the left arm Neurological: Alert, Oriented x3, Cranial nerves II-XII grossly intact, Normal Strength, Normal Sensation Psychological: - - Blunted affect Diagnostic/Tx/Re-eval Laboratory Last Values WBC 8.7 K/mm3 (4.4-11.0) 08/31/20 05:10 RBC 4.62 M/mm3 (4.2-5.4) 08/31/20 05:10 Hgb 14.3 g/dL (12.0-15.0) 08/31/20 05:10 Hct 44.1 % (37-47) 08/31/20 05:10 MCV 95.5 fL (81-99) 08/31/20 05:10 MCH 31.0 pg (27.0-32.0) 08/31/20 05:10 MCHC 32.4 g/dL (32-36) 08/31/20 05:10 RDW Std Deviation 48.2 fl (35.1-43.9) H 08/31/20 05:10 RDW Coeff of Krissy 13.6 % (11.6-14.6) 08/31/20 05:10 Plt Count 207 K/mm3 (150-450) 08/31/20 05:10 MPV 11.9 fl (6.2-12.0) 08/31/20 05:10 Immature Gran % (Auto) 0.600 % (0.0-0.9) 08/31/20 05:10 Neut % (Auto) 68.1 % (47-70) 08/31/20 05:10 Lymph % (Auto) 15.8 % (19-41) L 08/31/20 05:10 Latimer % (Auto) 10.2 % (0-10) H 08/31/20 05:10 Eos % (Auto) 4.5 % (0-5) 08/31/20 05:10 Baso % (Auto) 0.8 % (0-1) 08/31/20 05:10 Absolute Neuts (auto) 5.9 X10^3/uL (2.0-7.7) 08/31/20 05:10 Absolute Lymphs (auto) 1.38 X10^3/uL (0.83-4.51) 08/31/20 05:10 Nucleated RBC % 0 % (0-5) 08/31/20 05:10 Sodium 136 mmol/L (136-145) 08/31/20 05:10 Potassium 4.4 mmol/L (3.5-5.1) 08/31/20 05:10 Chloride 103 mmol/L (98-107) 08/31/20 05:10 Carbon Dioxide 28.0 mmol/L (21.0-32.0) 08/31/20 05:10 Anion Gap 5 (5-15) 08/31/20 05:10 BUN 14 mg/dL (7-18) 08/31/20 05:10 Creatinine 0.74 mg/dL (0.55-1.02) 08/31/20 05:10 Estim Creat Clear Calc 37.01 ml/min 08/31/20 05:10 Est GFR (MDRD) Af Amer 96 mL/min (>60) 08/31/20 05:10 Est GFR (MDRD) Non-Af 79 mL/min (>60) 08/31/20 05:10 BUN/Creatinine Ratio 18.9 RATIO (10-20) 08/31/20 05:10 Glucose 85 mg/dL (74-106) 08/31/20 05:10 Calcium 8.9 mg/dL (8.5-10.1) 08/31/20 05:10 Total Bilirubin 0.70 mg/dL (0.20-1.00) 08/31/20 05:10 AST 45 U/L (15-37) H 08/31/20 05:10 ALT 33 U/L (13-56) 08/31/20 05:10 Alkaline Phosphatase 78 U/L (45-117) 08/31/20 05:10 Troponin I < 0.015 ng/mL (<0.045) 08/31/20 05:10 Total Protein 7.0 g/dL (6.4-8.2) 08/31/20 05:10 Albumin 3.3 g/dL (3.2-5.0) 08/31/20 05:10 Globulin 3.7 g/dL (2.2-4.2) 08/31/20 05:10 Albumin/Globulin Ratio 0.9 RATIO (0.9-2.4) 08/31/20 05:10 Urine Color Yellow (Yellow) 08/31/20 05:10 Urine Clarity Clear (Clear) 08/31/20 05:10 Urine pH 7.0 (5.0 - 8.0) 08/31/20 05:10 Ur Specific [place] 1.015 (1.002-1.030) 08/31/20 05:10 Urine Protein 30 mg/dl (Negative) H 08/31/20 05:10 Urine Glucose (UA) Normal mg/dl (Normal) 08/31/20 05:10 Urine Ketones 5 mg/dl (Negative) H 08/31/20 05:10 Urine Occult Blood 10 /ul (Negative) H 08/31/20 05:10 Urine Nitrite Negative (Negative) 08/31/20 05:10 Urine Bilirubin Negative mg/dL (Negative) 08/31/20 05:10 Urine Urobilinogen 4 mg/dl (Normal) H 08/31/20 05:10 Ur Leukocyte Esterase 100 /ul (Negative) H 08/31/20 05:10 Urine RBC 0-5 SEEN /hpf (0-5) 08/31/20 05:10 Urine WBC 5-10 SEEN /hpf (0-5) 08/31/20 05:10 Ur Squamous Epith Cells 0 SEEN /hpf (5-10) 08/31/20 05:10 Urine Bacteria RARE /hpf (None Seen) 08/31/20 05:10 Urine Mucus 0 SEEN /hpf (<or=2+) 08/31/20 05:10 - EKG Initial EKG Interpretation: Atrial Fibrillation - EKG demonstrates atrial fibrillation at a rate of 66 with incomplete right bundle branch block - Medical Decision Making Patient has nondisplaced fractures of the lower left ribs. I do not see evidence of stroke. Think the patient most likely is going to have some underlying dementia. I am concerned for her safety as she has been falling more and now has broken several bones. She does have access to insurance that would provide her shelter coverage. Now with these broken ribs she will be on pain medicine which can make her confusion/hallucinations and fall risk greater. Things reasonable that we bring her into the hospital find a pain regimen that helps her and have PT OT evaluate her. She may eventually benefit from [facility] psychiatric evaluation ED Disposition - Plan for ED Patient: Disposition: Acute Care Hospital [facility] Diagnosis: Dizziness, Forehead contusion, Left rib fracture, Skin tear of left upper extremity, Hallucinations Referrals: Aguila Beebe, [Primary Care Provider] -
[2020-08-31 05:16] LABS: Absolute Lymphocyte Count 1.38 X10^3/uL (0.83-4.51); Absolute Neutrophil Count 5.9 X10^3/uL (2.0-7.7); Basophil# 0.07 X10^3/uL; Basophil% 0.8 % (0-1); Eosinophil# 0.39 X10^3/uL; Eosinophils% 4.5 % (0-5); Hematocrit 44.1 % (37-47); Hemoglobin 14.3 g/dL (12.0-15.0); Lymphocyte # 1.38 X10^3/ul (4.0); Lymphocyte % 15.8 % (19-41); Mean Corp Hgb Conc 32.4 g/dL (32-36); Mean Corpuscular Volume 95.5 fL (81-99); Mean Platelet Vol. 11.9 fl (6.2-12.0); Monocyte# 0.89 X10^3/uL; Monocyte% 10.2 % (0-10); NRBC Flagged by Analyzer 0 % (0-5); Neutrophil # 5.93 X10^3/uL (2.7-7.7); Neutrophil % 68.1 % (47-70); Platelet Count 207 K/mm3 (150-450); RBC Distribution Width CV 13.6 % (11.6-14.6); RBC Distribution Width SD 48.2 fl (35.1-43.9); Red Blood Count 4.62 M/mm3 (4.2-5.4); White Blood Count 8.7 K/mm3 (4.4-11.0)
[2020-08-31 05:17] LABS: Mucous, Urine 0 SEEN /hpf (<or=2+); Squamous Epithelial Cells - UA 0 SEEN /hpf (5-10)
[2020-08-31 05:19] LABS: Glucose, Dipstick Normal (Normal); Ketone-Dipstick 5 mg/dl (Negative); Leukocyte Esterase-Dipstick 100 /ul (Negative); Nitrite-Dipstick Negative (Negative); Occult Blood-Urine 10 /ul (Negative); Protein-Dipstick 30 mg/dl (Negative); Specific Gravity, Urine 1.015 (1.002-1.030); Urine Bilirubin Dipstick Negative (Negative); Urine Urobilinogen 4 mg/dl (Normal)
[2020-08-31 05:24] LABS: Color, Urine Yellow (Yellow); Urine Clarity Clear (Clear)
[2020-08-31 05:25] LABS: Bacteria RARE /hpf (None Seen); Red Blood Cells-Urine 0-5 SEEN /hpf (0-5); White Blood Cells 5-10 SEEN /hpf (0-5)
[2020-08-31 05:40] LABS: ALB/GLOB Ratio 0.9 RATIO (0.9-2.4); AST(SGOT) 45 U/L (15-37); Alanine Aminotransfer ALT/SGPT 33 U/L (13-56); Albumin, Serum 3.3 g/dL (3.2-5.0); Alkaline Phosphatase 78 U/L (45-117); Anion Gap 5 (5-15); BUN 14 mg/dL (7-18); BUN/Creat Ratio 18.9 RATIO (10-20); Calcium,Total 8.9 mg/dL (8.5-10.1); Chloride 103 mmol/L (98-107); Creatinine, Serum 0.74 mg/dL (0.55-1.02); EST Glomerular Filtration Rate 79 mL/min (>60); Est Glom Filt Rate - Afr Amer 96 mL/min (>60); Estimated Creatinine Clearance 37.01 ml/min; Globulin 3.7 g/dL (2.2-4.2); Glucose 85 mg/dL (74-106); Potassium 4.4 mmol/L (3.5-5.1); Sodium Level 136 mmol/L (136-145)
[2020-08-31] MEDS: oxyCODONE 5 MG Tablet PO (06:28)
--- NOTE | 2020-08-31 07:38 | NURSING ---
DR WALKER ALBERTO
--- NOTE | 2020-08-31 07:45 | NURSING ---
LANDON CARDOSO DIZZINESS, MULTIPLE RIB FXS
--- NOTE | 2020-08-31 07:53 | NURSING ---
DR CARDOSO IN ROOM
[2020-08-31 08:27] LABS: Amphetamine Urine VISTA NEGATIVE (<1000 ng/mL); Barbiturate Urine VISTA NEGATIVE (< 200 ng/mL); Benzodiazepine Urine VISTA NEGATIVE (< 200 ng/mL); Cocaine Urine VISTA NEGATIVE (< 300 ng/mL); Ecstacy Urine VISTA NEGATIVE (< 500 ng/mL); Methadone Urine VISTA NEGATIVE (< 300 ng/mL); PCP Urine VISTA NEGATIVE (< 25 ng/mL); THC Urine VISTA NEGATIVE (< 50 ng/mL)
--- NOTE | 2020-08-31 09:11 | MRI_ITS ---
STUDY: MRI BRAIN WITHOUT CONTRAST REASON FOR EXAM: Female, 84 years old. syncope TECHNIQUE: Standardized multiplanar fat and water weighted pulse sequences were obtained. COMPARISON: CT earlier today, MRI 11/17/2017 FINDINGS: There is moderate cerebral atrophy with widening of the extra-axial spaces and ventricular dilatation. There are multiple white matter hyperintensities, distributed throughout the deep white matter tracts of the cerebral hemispheres, consistent with moderate chronic white matter ischemic changes. There is no evidence for recent intracranial ischemia or other cause of cytotoxic edema on diffusion weighted imaging (DWI). Normal T2* images of the brain without demonstrated susceptibility artifact. There is no demonstrated hemosiderin stain. Normal bilateral basal ganglia. Normal thalami. There is no extra-axial fluid accumulation. Normal flow voids within the major intracranial circulation suggesting patency by spin echo criteria. Normal sella turcica, pituitary gland, infundibular stalk, optic chiasm and hypothalamus. Normal tectal plate and pineal gland. There are chronic white matter ischemic changes of the tata. The midbrain and medulla are otherwise normal. Normal cerebellum. Normal basal cisterns. Normal bilateral temporal bones. Normal bilateral internal auditory canals. There are bilateral ocular lens implants with otherwise normal intraorbital contents. Normal visualized paranasal sinuses. Normal calvarium and skull base. Normal visualized soft tissue structures. Normal visualized upper cervical spine. MRI/Brain without Contrast IMPRESSION: Involutional changes of the brain, as described above. No acute infarct. Electronically Signed: Mark Soriano MD at 15:03 EDT Tel , Service support ,
[2020-08-31 09:42] LABS: Thyroid Stim Hormone (TSH) 4.06 uIU/mL (0.358-3.74)
--- NOTE | 2020-08-31 10:12 | PCM.HP.STD ---
Problem List (1) Falls frequently Status: Chronic (2) Dizziness Status: Chronic (3) Forehead contusion Status: Acute (4) Left rib fracture Status: Acute (5) Skin tear of left upper extremity Status: Acute (6) Hallucinations Status: Chronic (7) PAF (paroxysmal atrial fibrillation) Status: Chronic (8) Cough Status: Acute (9) Dyspnea on exertion Status: Resolved (10) Fatigue Status: Resolved (11) Non-rheumatic aortic stenosis Status: Chronic (12) Nonsustained ventricular tachycardia Status: Resolved (13) Essential (primary) hypertension Status: Chronic (14) Hyperlipidemia Status: Chronic Qualifiers: Hyperlipidemia type: pure hypercholesterolemia Qualified Code(s): E78.00 - Pure hypercholesterolemia, unspecified; E78.0 - Pure hypercholesterolemia (15) Secondary pulmonary arterial hypertension Status: Chronic (16) CVA (cerebral vascular accident) Status: Chronic Qualifiers: Precerebral and cerebral artery: cerebellar artery Comment: Acute left cerebellar infarct (small) History of Present Illness Date of Admission: 08/31/20 Mrs. Pathak is a 84 year old WF with a past medical history of cerebellar stroke, hypertension, hyperlipidemia, mild aortic valve stenosis, paroxysmal atrial fibrillation, PAH-secondary, vitamin D deficiency, hypothyroidism, GERD, severe depression, and chronic benzodiazepine use who presented to the emergency department at [facility] on 08/31/2020 with chief complaint of dizziness/lightheadedness, frequent falls, and hallucinations. She presents with her grandson whom she lives with. He reports she does not have a history of dementia or any psychiatric illnesses other than depression at baseline. She was seen earlier this month in the emergency department for falls and at that time it was attributed to her Ativan usage. Her doses were reduced and she was discharged. Her son reports that since that point time nothing is really changed and that the hallucinations have gotten worse over the past several days. He also states that she has had several falls which appear to typically be to the left and most recently she fell against the wall and struck her head and her left flank area. Family is taking control of her medications. Of note, a tox screen done in the emergency department shows noted benzodiazepines in her system. Her vital signs in the emergency department were overall unremarkable other than some mild hypertension. Labs were done and overall unremarkable. Her CBC shows no renal abnormalities. Her CMP shows a mildly elevated AST at 45. Her troponin is negative. Her EKG shows atrial fibrillation with rate control and incomplete right bundle branch block and no ischemic changes. Her UA shows some leuk esterase and white blood cells but rare bacteria and a culture is pending at this time. The specific gravity was mildly elevated at 1.015. Her TSH was 4.06. A CT of her brain without contrast was performed and showed chronic involutional changes but no acute intracranial processes. CT of her abdomen and pelvis without contrast shows acute fractures of the posterior segments of the left 10th through 12th ribs, a large hiatal hernia, colonic diverticulosis and atherosclerosis. The ER physician had a conversation with the caregiver/grandson and he is with the understanding and agrees that she probably will need placement for continued occupational and physical therapy. He does indicate she has a walker at home but does not use it. [] Past Medical History Past Medical History (Chronic Problems): Chronic Problems (Last Updated 02/28/20 @ 12:00 by Briana DEGROOT, PA) Dizziness (Chronic) Hallucinations (Chronic) Falls frequently (Chronic) PAF (paroxysmal atrial fibrillation) (Chronic) Non-rheumatic aortic stenosis (Chronic) Essential (primary) hypertension (Chronic) Hyperlipidemia (Chronic) Secondary pulmonary arterial hypertension (Chronic) CVA (cerebral vascular accident) (Chronic 11/16/17) Acute left cerebellar infarct (small) Medical History: Medical History (Last Reviewed 08/31/20 @ 10:[address] Zulema Beckett, DO) PAF (paroxysmal atrial fibrillation) (Chronic) I48.0 Non-rheumatic aortic stenosis (Chronic) I35.0 Essential (primary) hypertension (Chronic) I10 Hyperlipidemia (Chronic) E78.5 Secondary pulmonary arterial hypertension (Chronic) I27.21 CVA (cerebral vascular accident) (Chronic) Onset Date: 11/16/17 I63.9 Acute left cerebellar infarct (small) Nonsustained ventricular tachycardia (Resolved) I47.2 GERD (gastroesophageal reflux disease) K21.9 Hypothyroidism E03.9 Hypokalemia E87.6 Allergies aspirin Allergy (Verified 08/19/20 22:52) Hives tetanus immune globulin Allergy (Verified 08/19/20 22:52) Rash sulfamethoxazole [From Bactrim] Adverse Reaction (Verified 08/19/20 23:21) Rash trimethoprim [From Bactrim] Adverse Reaction (Verified 08/19/20 23:21) Rash Home Medications: Ambulatory Orders Medication Instructions Recorded Metoprolol Tartrate [Lopressor 50 mg PO BID 05/13/14 (beta meghana)] Calcium Carbonate/Vitamin D3 1 ea PO DAILY 11/16/17 [Caltrate 600 Plus D3 Tablet] Gluc Fritz/Chondro Fritz A/Vit C/Mn 2 ea PO DAILY 11/16/17 [Glucosamine-Chondroitin Cap] Multivitamin [Multiple Vitamins] 1 ea PO DAILY 11/16/17 Omeprazole Magnesium [Prilosec Otc] 20 mg PO DAILY 11/16/17 Acetaminophen [Tylenol] 1,000 mg PO Q8H PRN PRN tab 12/12/17 Atorvastatin Calcium [Lipitor] 40 mg PO QHS #30 tab 12/12/17 lorazepam 0.5 mg tablet 1 mg PO QHS 07/31/18 cholecalciferol (vitamin D3) 50 3,000 unit PO DAILY 05/17/19 mcg (2,000 unit) chewable tablet levothyroxine 50 mcg tablet 50 mcg PO .COMPLEX #1 tab 02/03/20 paroxetine HCl 10 mg tablet 10 mg PO DAILY #1 tab 02/03/20 biotin 10,000 mcg capsule 10,000 mcg PO DAILY 02/04/20 furosemide 40 mg tablet 40 mg PO DAILY #90 tab 02/04/20 omega-3 fatty acids 1,000 mg 1,000 mg PO BID cap 02/04/20 capsule apixaban 2.5 mg tablet 2.5 mg PO BID #60 tab 02/28/20 Lorazepam 0.5 mg PO DAILY 08/31/20 Triamcinolone 0.5% Cream 1 applic TOPICAL BID PRN 08/31/20 [Triamcinolone Acetonide] Surgical History: Surgical History (Last Reviewed 08/31/20 @ 10:[address] Zulema Beckett DO) History of cholecystectomy Z90.49 Surgical History: - - Breast biopsy otherwise unremarkable Psychiatric History: No pertinent psych hx WHEEL TUNER History: No pertinent WHEEL TUNER history Lives: With Family - And grandson and his girlfriend Smoking Status: Never smoker Tobacco Use: Non-smoker Alcohol: None Drugs: None - *Family History Sibling Family History: Family History (Last Reviewed 08/31/20 @ 10:[address] Zulema Beckett DO) Mother Heart disease CVA (cerebral vascular accident) History Items: - - Gallstones Maternal Family History: Family History (Last Reviewed 08/31/20 @ 10:[address] Zulema Beckett DO) Mother Heart disease CVA (cerebral vascular accident) History Items: No pertinent history Paternal Family History: Family History (Last Reviewed 08/31/20 @ 10:[address] Zulema Beckett DO) Mother Heart disease CVA (cerebral vascular accident) History Items: No pertinent history Review of Systems Constitutional: Reports: Weakness, Fatigue. Denies: Anorexia, Chills, Fever, Night Sweats, Malaise, Weight Change Eyes: Denies: Blurred vision, Cataracts, Conjunctivae Inflammation, Double vision, Drainage, Eyelid Inflammation, Pain, Redness, Vision Change HEENT: Denies: Difficulty Hearing, Difficulty Swallowing, Ear Pain, Eye Pain, Head Aches, Nasal bleeding, Nasal Congestion, Post Nasal Drip, Sinus Congestion, Sinus Drainage, Sore Throat, Visual Changes Cardiovascular: Denies: Chest Pain, Claudication, Chest Pressure, Chest Tightness, Edema, Heaviness, Light Headedness, Orthopnea, Palpitations, Paroxysmal Noc. Dyspnea, Syncope Respiratory: Denies: Cough, Hemoptysis, Pleuritic Pain, Shortness of Breath, Shortness of breath at rest, Shortness of breath upon exertion, Sputum production, Wheezing Gastrointestinal: Reports: - - Left-sided flank pain. Denies: Abdominal Pain, Constipation, Diarrhea, Dyspepsia, Hematemesis, Hematochezia, Nausea, Melena, Vomiting Genitourinary: Reports: Incontinence, Nocturia. Denies: Dysuria, Frequency, Hematuria, Hesitancy, Retention, Urgency Musculoskeletal: Reports: Back Pain - Lower thoracic. Denies: Arm Pain, Hand Pain, Joint Pain, Joint stiffness, Joint swelling, Joint Tenderness, Muscle pain, Neck Pain Skin: Reports: Wounds - Skin tear left arm. Denies: Dryness, Jaundice, Lesions, Pruritis, Rash, Skin Changes Neurological: Reports: Balance problems, Confusion - Intermittent per grandson. Denies: Blurred vision, Double vision, Change in Speech, Slurred speech, Difficulty swallowing, Focal weakness, Headaches, Incoordination, Numbness, Tingling, Tremor, Seizures Psychiatric: Reports: Depression. Denies: Anxiety Endocrine: Denies: Change in Body Habitus, Heat/ Cold Intolerance, Polydipsia, Polyuria Hematologic/ Lymphatic: Reports: Easy Bruising, Easy Bleeding. Denies: Adenopathy, Anemia, Petechiae, Purpura VTE Information - Inpt Only VTE Present on Admission: No VTE Mechan Device Prophylaxis: None VTE Pharm Prophylaxis ordered?: Yes Patient Problems: Active and Suspected Problems (Last Updated 02/28/20 @ 12:00 by Briana DEGROOT, PA) Forehead contusion (Acute) Left rib fracture (Acute) Skin tear of left upper extremity (Acute) Cough (Acute) - Physical Exam Vitals/I&O's: Vital Signs Temp Pulse Resp BP Pulse Ox 98.8 F 74 23 H 145/98 H 96 08/31/20 04:26 08/31/20 06:29 08/31/20 06:29 08/31/20 06:29 08/31/20 06:29 Oxygen Delivery Method Room Air Weight: 59.285 kg Body Mass Index (BMI) 21.7 General: Alert, Oriented x3, Cooperative, No apparent distress, Well developed, Well nourished HEENT: PERRLA, EOMI, Normocephalic, EAC Clear, - - Ecchymosis left temporal area x2 -->1 shows signs of healing the other is more acute Oral: No Gingival or Mucosal Lesions/ Ulcerations, Dry Mucosa, - - Poor dentition, Mallampati 2, dry mouth Neck: Supple, No JVD, Negative Carotid Bruits, Negative Hepatojugular Reflux, No Nodes, No Nuchal Rigidity, Trachea Midline, Thyroid Normal Size and Texture Lungs: Clear to auscultation, Normal air movement, No rhonchi, No wheeze, No rales Cardiovascular: Regular rate, Normal S1, Normal S2, No Ectopic Activity, Murmur - 2 out of 6 systolic murmur loudest at right upper sternal border, No rub noted, No Gallop, - - Irregular rhythm Abdomen: Bowel Sounds Present, Soft, Non Tender, Non-Distended, No Hepato-splenomegaly, No hernias noted, - - Tender left flank, no ecchymosis noted Extremities: No clubbing, No cyanosis, No edema, Capillary Refill Less than 3 Seconds, No Calf Tenderness, Peripheral Pulses Normal Skin: No rashes, No breakdown, Ulcer/ Wound - Skin tear left lateral elbow, - - Phimosis left temporal area Musculoskeletal: No Tenderness to Palpation of Joints or Extremities, Arthritic Changes, Muscle Wasting - Lateral lower extremities Lymphatic: No Cervical, Supraclavicular, or Inguinal Adenopathy Neurological: Cranial nerves II-XII grossly intact, Deep Tendon Reflexes 2+/4 and Symmetrical, Muscle tone normal, Sensory exam intact to light touch and pain, Coordination normal, - - Lysed weakness proximal greater than distal Psych/Mental Status: Appropriate, Delusions Laboratory Results 08/31/20 05:10: WBC 8.7, RBC 4.62, Hgb 14.3, Hct 44.1, MCV 95.5, MCH 31.0, MCHC 32.4, RDW Std Deviation 48.2 H, RDW Coeff of Krissy 13.6, Plt Count 207, MPV 11.9, Immature Gran % (Auto) 0.600, Neut % (Auto) 68.1, Lymph % (Auto) 15.8 L, [place] % (Auto) 10.2 H, Eos % (Auto) 4.5, Baso % (Auto) 0.8, Absolute Neuts (auto) 5.9, Absolute Lymphs (auto) 1.38, Nucleated RBC % 0 08/31/20 05:10: Sodium 136, Potassium 4.4, Chloride 103, Carbon Dioxide 28.0, Anion Gap 5, BUN 14, Creatinine 0.74, Estim Creat Clear Calc 37.01, Est GFR (MDRD) Af Amer 96, Est GFR (MDRD) Non-Af 79, BUN/Creatinine Ratio 18.9, Glucose 85, Calcium 8.9, Total Bilirubin 0.70, AST 45 H, ALT 33, Alkaline Phosphatase 78, Troponin I < 0.015, Total Protein 7.0, Albumin 3.3, Globulin 3.7, Albumin/Globulin Ratio 0.9 08/31/20 05:10: Urine Color Yellow, Urine Clarity Clear, Urine pH 7.0, Ur Specific [place] 1.015, Urine Protein 30 H, Urine Glucose (UA) Normal, Urine Ketones 5 H, Urine Occult Blood 10 H, Urine Nitrite Negative, Urine Bilirubin Negative, Urine Urobilinogen 4 H, Ur Leukocyte Esterase 100 H, Urine RBC 0-5 SEEN, Urine WBC 5-10 SEEN, Ur Squamous Epith Cells 0 SEEN, Urine Bacteria RARE, Urine Mucus 0 SEEN 08/31/20 05:10: Urine Opiates Screen NEGATIVE, Urine Methadone Screen NEGATIVE, Ur Barbiturates Screen NEGATIVE, Ur Phencyclidine Scrn NEGATIVE, Ur Amphetamines Screen NEGATIVE, U Methamphetamin-MDMA NEGATIVE, U Benzodiazepines Scrn NEGATIVE, Urine Cocaine Screen NEGATIVE, U Cannabinoids Screen NEGATIVE, Ur Drug Screen Comment 08/31/20 05:10: TSH 4.06 H Current Medications Acetaminophen (Acetaminophen 325 Mg Tablet) 650 mg PO Q6H PRN PRN PRN Reason: Pain Score 1-10/Temp > 100.7 F Al Hydroxide/Mg Hydroxide (Mag Hydrox/Al Hydrox/Simeth 30 Ml Udc) 30 ml PO Q6H PRN PRN PRN Reason: Gastric Burning Albuterol Sulfate (Albuterol 2.5 Mg/3 Ml Vial.Neb.) 2.5 mg INHALATION Q2H PRN PRN PRN Reason: SOB/Wheezing Apixaban (Apixaban 2.5 Mg Tablet) 2.5 mg PO BID [facility] Atorvastatin Calcium (Atorvastatin Calcium 40 Mg Tablet) 40 mg PO QHS [facility] Calcium/Vitamin D (Calcium Carb/Vitamin D 1 Tablet Tablet) 1 tablet PO BID@1200,1700 [facility] Cholecalciferol (Cholecalciferol (Vit D3) 25 Mcg Tablet (1,000 Units)) 50 mcg PO DAILY [facility] Furosemide (Furosemide 40 Mg Tablet) 40 mg PO DAILY [facility] Levothyroxine Sodium (Levothyroxine 50 Mcg Tablet) 50 mcg PO MoTuWeThFrSa@0600 [facility] Lorazepam (Lorazepam 0.5 Mg Tablet) 0.5 mg PO QHS [facility] Melatonin (Melatonin 3 Mg Tablet) 3 mg PO QHS PRN PRN PRN Reason: INSOMNIA Metoprolol Tartrate (Metoprolol Tartrate 50 Mg Tablet) 50 mg PO BID [facility] Multivitamins (Multivitamins,Therapeutic Tablet) 1 tablet PO DAILY@1200 [facility] [id number]-[id number] Ethyl Esters ([place]-3 Acid Ethyl Esters 1 Gm Capsule) 2 gm PO DAILY [facility] Ondansetron HCl (Ondansetron 4 Mg/2 Ml Vial) 4 mg IV Q8H PRN PRN PRN Reason: NAUSEA/VOMITING Oxycodone HCl (Oxycodone 5 Mg Tablet) 5 mg PO Q4H PRN PRN PRN Reason: Pain Score 6-10 Pantoprazole Sodium (Pantoprazole Sodium 20 Mg Tablet) 20 mg PO DAILY [facility] Paroxetine HCl (Paroxetine 10 Mg Tablet) 10 mg PO DAILY GEE Risperidone (Risperidone 0.25 Mg Tablet) 0.25 mg PO BID GEE Senna/Docusate Sodium (Senna/Docusate Sodium 1 Tablet) 2 tablet PO BID PRN PRN PRN Reason: Constipation Sodium Chloride (0.9% Saline Lock 10 Ml Syringe) 10 - 40 ml IV UD PRN PRN Reason: SALINE FLUSH Assessment/Plan All Active Problems (Last Updated 02/28/20 @ 12:00 by Briana Dow PA, PA) Forehead contusion (Acute) Left rib fracture (Acute) Skin tear of left upper extremity (Acute) Cough (Acute) Dyspnea on exertion (Resolved) Fatigue (Resolved) Nonsustained ventricular tachycardia (Resolved) Biliary calculus (Resolved) Biliary colic (Resolved) Hypokalemia (Resolved) Near syncope (Resolved) Recurrent falls/debility -Rule out any significant neurological issues/cardiac issues that may contribute to this -MRI pending -Check echo -EEG pending -Check urine culture -Tox screen was negative -Wean off benzodiazepine -If falls continue to be an issue we may need to consider discontinuing her apixaban in the future -TSH was mildly elevated will check free T4 -Consult physical therapy/Occupational Therapy -We will likely need placement at SNF for discharge Mild aortic stenosis -Repeat echo -Last echo was 01/2020 and showed mild Left arm skin tear -Seen in place -Wound care per nursing Hallucinations -See above neuro work-up -We will try low-dose risperidone at 0.25 mg twice daily -If these persist would benefit from Swapna psych work-up at outpatient follow-up Paroxysmal atrial fibrillation -Patient is currently in atrial fibrillation -Continue apixaban -Continue metoprolol History of cerebellar stroke -No current issues -Could be contributing to balance issues -PT/OT consultations Hyperlipidemia -Continue atorvastatin Hypertension -Continue Lasix 40 mg daily -Continue metoprolol -Check orthostatic vitals Depression -Continue paroxetine Vitamin D deficiency -Continue vitamin D supplementation DVT prophylaxis -Continue NOAC CODE STATUS -Full code as per discussion with grandson and patient at this time although they will discuss further Inpatient E&M: [id number] Init Hosp L3
--- NOTE | 2020-08-31 11:23 | TELEMED_ITS ---
[facility] Telemed has confirmed receipt of a request for visit. This document confirms receipt of the order initiating the consult. To find the results of the consultation, please view the patient's reports for the scanned Telemed Consult.
[2020-08-31 11:43] LABS: Vista UDS pH Range 7
--- NOTE | 2020-08-31 12:19 | CASEMGMT ---
SW called grandson Jose, message left. Pt's daughter Cheryl is listed first on the medical POA forms, she is in [facility] at present. Grandson is listed second. SW was informed that family would like pt to go to [facility] at discharge, however SW called and [facility] does not take pt's insurance. SW will await call back from grandson in regard to most appropriate discharge plan. GIA Osman
[2020-08-31] MEDS: Furosemide 40 MG Tablet PO (13:05)
[2020-08-31] MEDS: APIXABAN 2.5 MG TABLET PO (13:05)
[2020-08-31] MEDS: Metoprolol Tartrate 50 MG Tablet PO ×2 (13:05→21:16)
[2020-08-31] MEDS: PARoxetine 10 MG Tablet PO (13:05)
[2020-08-31] MEDS: Pantoprazole Sodium 20 MG Tablet PO (13:06)
[2020-08-31] MEDS: Cholecalciferol (VIT D3) 25 MCG TABLET (1,000 UNITS) 50 MCG PO (13:06)
[2020-08-31] MEDS: Multivitamins,Therapeutic Tablet 1 TABLET PO (13:06)
[2020-08-31] MEDS: RisperiDONE 0.25 MG Tablet PO ×2 (13:06→21:16)
[2020-08-31] MEDS: Omega-3 Acid Ethyl Esters 1 GM Capsule 2 GM PO (13:06)
[2020-08-31] MEDS: Calcium Carb/Vitamin D 1 TABLET Tablet PO ×2 (13:06→16:57)
--- NOTE | 2020-08-31 14:25 | CHAPLAIN ---
Type of Pastoral Visit _x__ Initial Visit ___ Follow-up Visit ___ On-call Visit ___ General Patient Visit ___ Spiritual Assessment ___ Family Conference ___ Bereavement ___ Rapid Response ___ Code Blue ___ Other (describe below) Pastoral Care Referral From _x__ Patient ___ Family ___ Nurse ___ Physician ___ Press Bucker ___ Science Manager ___ Other (describe below) Sacrament/Intervention _x__ Active listening ___ Anointing ___ Bahai ___ Bereavement ___ Communion ___ Geraldine exploration ___ _x__ Life review _x__ Prayer ___ Reconciliation ___ Sacrament of Sick _x__ Supportive presence ___ Wedding ___ Other (describe below) Pastoral Comments
--- NOTE | 2020-08-31 15:07 | CASEMGMT ---
SW spoke w/grandmarlee in regard to pt's prior level of care, and anticipated discharge plan. PCP: Dr. Beebe Specialists: Dr. Whitlock Pharmacy: [facility] Insurance: MMO Medicare, and a half-way [employer] [place] policy LW/POA: On file, daughter Cheryl is listed as POA, she is in [facility] as a truck terminal manager resident. Grandson Jose is listed as the alternate. Prior level of function/living arrangements: Prior to hospitalization, pt living home in one story apartment, no steps to enter. Pt was in [facility] in 2018, her around the same time as per grandson. Grandson and his girlfriend moved in w/her in December of 2017 and have stayed w/her since. Pt was independent with some ADLs such as dressing and bathing, toileting. Grandson and his girlfriend assist w/cooking, cleaning, med setup, shopping, and transportation. Pt has not driven in a couple of months as per grandmarlee. DME/HHC/SNF: Pt has been to TCU. Pt has a walker but does not use it. Pt has grab bars in a the bathroom. She also has a seat built into one of the showers, but does not use. SW spoke w/grandmarlee at length in regard to discharge plan. He states that he is not sure of the truck terminal manager plan for his grandmother. Short term, he is agreeable to rehab for her. Initially he had requested [facility], however they do not take pt's insurance. EDISON reviewed w/grandson alf facilities in this geographic area that take pt's insurance. In [place], T[facility] is the only nursing facility that takes pt's insurance. Grandson in agreement w/referral to TCU for short term rehab. Jordon states that pt has a [employer] [place] policy that is [place] years of [place] [facility] [place]. EDISON advised jordon to call [employer] [place] to get an understanding of how the police works. EDISON explained if it does cover half-way then perhaps pt could go to [facility] eventually under the [employer] [place] policy, after some skilled time under her MMO policy. Jordon does state he would like pt to ultimately come home w/aide services if that is possible. EDISON again encouraged him to call [employer] [place] to see if it will cover services at home. EDISON explained that pt's MMO will cover short term skilled needs, such as PT/OT/nursing and aide services. Jordon states understanding and will pull out pt's policy to review. SW explained will make the referral to TCU to see if they will accept her, and then if so start the precert process, will let him know. EDISON called TCU, spoke w/H[facility]. She called SW back, they can take pt. MMO Medicare requires an initial call and fax from the hospital regarding attaining authorization for SNF. SW called, message left, and initial referral faxed. They are to then call this SW back to let SW know if they agree with SNF level of care at discharge. If they do, then EDISON will let Haleigh know in TCU to start precert. EDISON called jordon Garcia back and let him know that TCU will take pt and we are working on precert. SW let him know will speak w/pt and let her know also that she has been accepted in TCU. SW attempted to speak w/pt, she is asleep. EDISON will continue to follow. GIA Osman
[2020-08-31] MEDS: LORazepam 0.5 MG Tablet PO (21:15)
[2020-08-31] MEDS: Atorvastatin Calcium 40 MG Tablet PO (21:16)
[2020-09-01] VITALS (9 sets, daily range): BP systolic 115–165; BP diastolic 60–86; PULSE 61–79; RESP 12–18; TEMP 36.4–36.6; O2SAT 94–96
[2020-09-01 05:33] LABS: Absolute Lymphocyte Count 1.48 X10^3/uL (0.83-4.51); Absolute Neutrophil Count 5.5 X10^3/uL (2.0-7.7); Basophil# 0.04 X10^3/uL; Basophil% 0.5 % (0-1); Eosinophils% 2.5 % (0-5); Hematocrit 44.2 % (37-47); Hemoglobin 14.7 g/dL (12.0-15.0); Lymphocyte # 1.48 X10^3/ul (4.0); Lymphocyte % 18.3 % (19-41); Mean Corp Hgb Conc 33.3 g/dL (32-36); Mean Corpuscular Hgb 30.9 pg (27.0-32.0); Mean Corpuscular Volume 92.9 fL (81-99); Mean Platelet Vol. 11.7 fl (6.2-12.0); Monocyte# 0.89 X10^3/uL; NRBC Flagged by Analyzer 0 % (0-5); Neutrophil # 5.45 X10^3/uL (2.7-7.7); Neutrophil % 67.3 % (47-70); Platelet Count 207 K/mm3 (150-450); RBC Distribution Width CV 13.5 % (11.6-14.6); RBC Distribution Width SD 46.5 fl (35.1-43.9); Red Blood Count 4.76 M/mm3 (4.2-5.4); White Blood Count 8.1 K/mm3 (4.4-11.0)
--- NOTE | 2020-09-01 05:55 | ECHOD_ITS ---
Reason For Study: Arrhythmia Procedure This was a 2D Doppler, Color Flow transthoracic echocardiogram. The study was technically difficult. Exam performed portable in patient room. Left Ventricle Normal LV size. Left ventricular systolic function is hyperdynamic. The estimated ejection fraction is 75 %. Unable to assess diastolic dysfunction. No regional wall motion abnormalities noted. Right Ventricle Normal RV size. Normal systolic function. Atria The left atrium is moderately enlarged. The right atrium is moderately enlarged. No doppler evidence for ASD. Mitral Valve There is moderate mitral annular calcification. Mild diffuse mitral valve thickening. Mild (1+) mitral valve insufficiency. Tricuspid Valve Poor coaptation of the tricuspid valve. Moderate (2+) tricuspid valve insufficiency. Right ventricular systolic pressure estimated to be 31 mmHg. Aortic Valve Trisinus/trileaflet aortic valve. Mild diffuse aortic valve thickening. Moderate focal aortic valve calcification. Moderate aortic stenosis. Pulmonic Valve The pulmonic valve is not well visualized. Great Vessels Normal sized aortic root. Pericardium/Pleural Trivial pericardial effusion. There are no echocardiographic indications of cardiac tamponade. MMode/2D Measurements & Calculations LVIDd: 3.4 cm IVSd: 1.2 cm LVOT diam: 2.0 cm LVIDs: 1.3 cm LVPWd: 1.2 cm LVOT area: 3.0 cm2 RVDd: 3.6 cm FS: 61.4 % Ao root diam: 3.3 cm LAV(MOD-bp): 91.8 ml LA A4 area: 26.2 cm2 LAV(MOD-bp) Indexed: 55.7 ml/m2 LAV(MOD-sp2): 94.1 ml LAV(MOD-sp4): 77.0 ml LA dimension(2D): 5.0 cm RA A4 area: 26.4 cm2 Doppler Measurements & Calculations MV E max domitila: 123.8 cm/sec Ao V2 max: 287.4 cm/sec LV V1 max: 89.8 cm/sec Ao max P.1 mmHg LV V1 max P.2 mmHg Ao V2 mean: 201.3 cm/sec LV V1 mean P.6 mmHg Ao mean P.1 mmHg LV V1 mean: 60.2 cm/sec Ao V2 VTI: 56.5 cm LV V1 VTI: 17.3 cm DYLAN(I,D): 0.93 cm2 DYLAN(V,D): 0.95 cm2 SV(LVOT): 52.6 ml PA V2 max: 73.6 cm/sec TR max domitila: 261.4 cm/sec TR max P.6 mmHg ECHO/Echo Complete Interpretation Summary The study was technically difficult. Left ventricular systolic function is hyperdynamic. The estimated ejection fraction is 75 %. The left atrium is moderately enlarged. The right atrium is moderately enlarged. There is moderate mitral annular calcification. Mild diffuse mitral valve thickening. Mild (1+) mitral valve insufficiency. Poor coaptation of the tricuspid valve. Moderate (2+) tricuspid valve insufficiency. Moderate aortic stenosis. Trivial pericardial effusion. There are no echocardiographic indications of cardiac tamponade. Right ventricular systolic pressure estimated to be 31 mmHg. Unable to assess diastolic dysfunction. Ordering Physician: Zulema Beckett Referring Physician: Aguila Beebe Performed By: Felipa Vasquez RDCS
[2020-09-01] MEDS: Levothyroxine 50 MCG Tablet PO (05:58)
[2020-09-01 06:31] LABS: ALB/GLOB Ratio 0.9 RATIO (0.9-2.4); AST(SGOT) 25 U/L (15-37); Alanine Aminotransfer ALT/SGPT 29 U/L (13-56); Albumin, Serum 3.1 g/dL (3.2-5.0); Alkaline Phosphatase 73 U/L (45-117); Anion Gap 6 (5-15); BUN 13 mg/dL (7-18); BUN/Creat Ratio 18.3 RATIO (10-20); Calcium,Total 8.4 mg/dL (8.5-10.1); Chloride 103 mmol/L (98-107); Creatinine, Serum 0.71 mg/dL (0.55-1.02); EST Glomerular Filtration Rate 83 mL/min (>60); Est Glom Filt Rate - Afr Amer 100 mL/min (>60); Estimated Creatinine Clearance 37.01 ml/min; Globulin 3.5 g/dL (2.2-4.2); Glucose 112 mg/dL (74-106); Magnesium 2.1 mg/dL (1.6-2.6); Phosphorus 3.8 mg/dL (2.5-4.9); Potassium 3.5 mmol/L (3.5-5.1); Protein, Total 6.6 g/dL (6.4-8.2); Sodium Level 138 mmol/L (136-145)
[2020-09-01] MEDS: Pantoprazole Sodium 20 MG Tablet PO (09:11)
[2020-09-01] MEDS: Cholecalciferol (VIT D3) 25 MCG TABLET (1,000 UNITS) 50 MCG PO (09:11)
[2020-09-01] MEDS: Furosemide 40 MG Tablet PO (09:11)
[2020-09-01] MEDS: RisperiDONE 0.25 MG Tablet PO (09:12)
[2020-09-01] MEDS: PARoxetine 10 MG Tablet PO (09:12)
[2020-09-01] MEDS: Metoprolol Tartrate 50 MG Tablet PO (09:12)
[2020-09-01] MEDS: APIXABAN 2.5 MG TABLET PO (09:12)
[2020-09-01] MEDS: Omega-3 Acid Ethyl Esters 1 GM Capsule 2 GM PO (09:12)
--- NOTE | 2020-09-01 09:44 | CASEMGMT ---
SW called and left a message for [facility] regarding the initial information sent, to inquire about starting the prior authorization for [facility] facility level of care. SW did check and the faxed referral did go through. EDISON will continue to follow. GIA Osman
[2020-09-01] MEDS: Multivitamins,Therapeutic Tablet 1 TABLET PO (11:32)
[2020-09-01] MEDS: Calcium Carb/Vitamin D 1 TABLET Tablet PO ×2 (11:32→17:01)
--- NOTE | 2020-09-01 11:46 | CASEMGMT ---
EDISON spoke w/Seble from [facility]. She is in agreement with skilled level of care at a nursing facility at discharge for pt, she states pt would need to be transferred within 4 days. Precert can be started and Seble anticipates would be able to get precert back today. EIDSON let EDISON Austin on PCU know. She will check w/physician to see if pt is ready today and will follow up w/[place] in TCU to start the precert when appropriate. GIA Osman
--- NOTE | 2020-09-01 12:04 | CASEMGMT ---
Addendum entered by Geovanna Atkins 09/01/20 15:17: Patient updated of possible transition to TCU today or tomorrow pending precert. Original Note: Social Work Updated by patient doctor that patient is ready for discharge today. Telephone call to TCU admissions, Haleigh. Haleigh updated that patient is cleared for discharge. Haleigh to begin pre-cert. Will continue to follow. Linus THOMPSON, JACOBS
--- NOTE | 2020-09-01 16:09 | PCM.TXEXTCAR ---
- Diet 08/31/20 09:12 Diet: Regular - General Food consistency:: Regular Liquid Consistency:: Regular/Thin Type of Dietary Supplement:: Ensure Enlive Diet Comments: 120ml ensure enlive TID w/ meals - Routine Orders/Code Status Suppository Type: Dulcolax 10mg Suppository Frequency: Daily PRN O2 Frequency: PRN Routine Lab Work: CBC, BMP Code Status: Full Code - Wound(s) Left forearm Wound Type: Abrasion - Therapies Physical Therapy: Eval and Treat Occupational Therapy: Eval and Treat - Problem/Diagnosis (1) Falls frequently Status: Chronic (2) Dizziness Status: Chronic (3) Forehead contusion Status: Acute (4) Left rib fracture Status: Acute (5) Skin tear of left upper extremity Status: Acute (6) Hallucinations Status: Chronic (7) PAF (paroxysmal atrial fibrillation) Status: Chronic (8) Cough Status: Acute (9) Dyspnea on exertion Status: Resolved (10) Fatigue Status: Resolved (11) Non-rheumatic aortic stenosis Status: Chronic (12) Nonsustained ventricular tachycardia Status: Resolved (13) Essential (primary) hypertension Status: Chronic (14) Hyperlipidemia Status: Chronic (15) Secondary pulmonary arterial hypertension Status: Chronic (16) CVA (cerebral vascular accident) Status: Chronic Comment: Acute left cerebellar infarct (small) - Allergies/Procedures Done in Hospital Allergies/Adverse Reactions: Allergies aspirin Allergy (Verified 08/19/20 22:52) Hives tetanus immune globulin Allergy (Verified 08/19/20 22:52) Rash sulfamethoxazole [From Bactrim] Adverse Reaction (Verified 08/19/20 23:21) Rash trimethoprim [From Bactrim] Adverse Reaction (Verified 08/19/20 23:21) Rash - Type of Care/Length of Stay Estimated LOS: Convalescent Care Less Than 30 days Type of Care Needed: Skilled Rehab Potential: Fair Prognosis: Fair - Additional Orders/Day of Discharge Day of Discharge: 09/01/20 - Dietary and Speech Recommendations Dietitian Recommendations/Changes: Will continue liberalized regular diet as intake established; cardiac diet as indicated. Will offer 120ml ensure enlive TID w/ meals. Adjust ONS as needed once intake better established. - Follow Up Care Primary Care Physician: Aguila Beebe DO [Primary Care Provider] - Please follow up with your Primary Care Physician in: 1-2 weeks after discharge from [facility] Please Follow Up With: Juwan Whitlock MD When: as scheduled
--- NOTE | 2020-09-01 16:25 | CASEMGMT ---
Social Work Telephone call from [facility] Stephenson. Patient precert obtained and is approved for admission. Patient able to transition today. Met with patient in room. Patient agreeable to above and request for grandsonJose to be updated. Telephone call to Jose. Jose updated on above and agreeable. Jose to update patient daughter, Cheryl. Medical team updated on above. PLAN: Sachin THOMPSON, GIA
--- NOTE | 2020-09-01 16:32 | PN_ITS ---
Patient Problems: Active and Suspected Problems (Last Reviewed 08/31/20 @ 10:[address] Zulema eBckett, DO) Forehead contusion (Acute) Left rib fracture (Acute) Skin tear of left upper extremity (Acute) Cough (Acute) Subjective: She has no complaints. No reports of hallucinations overnight. Discussed results of her MRI and EEG with her. Vitals/I&O's: Vital Signs Temp Pulse Resp BP Pulse Ox 97.9 F 61 18 115/61 94 09/01/20 09:00 09/01/20 11:00 09/01/20 09:00 09/01/20 09:12 09/01/20 09:00 Oxygen Delivery Method Room Air Weight: 59.3 kg Body Mass Index (BMI) 21.7 Orthostatic Vital Signs Start: 09/01/20 05:50 Freq: q24h Status: Active Protocol: Activity Type Activity Date Activity User E-Sign Co-Sign Detail Recorded Client Recorded Date Recorded By Document 09/01/20 05:50 CM [id number] 09/01/20 05:57 CM 09/01/20 05:50 Orthostatic Vitals Standing -Blood Pressure (90/60-120/80) 165/86 H -Extremity Use Right Arm -Pulse Rate (60-100) 71 Sitting -Blood Pressure (90/60-120/80) 148/80 H -Extremity Use Right Arm -Pulse Rate (60-100) 72 Lying -Blood Pressure (90/60-120/80) 130/60 H -Extremity Use Right Arm -Pulse Rate (60-100) 78 Intake and Output for Last 24 Hours 08/30/20 08/31/20 09/01/20 23:59 23:59 23:59 Intake Total 400 / 400 315 / 315 Balance 400 / 400 315 / 315 General: Alert, Oriented x3, Cooperative, No apparent distress, Well developed, Well nourished, - - Elderly white female sitting up in bed, therapy is at bedside and residential service technician has arrived, patient is nontoxic and appears comfortable HEENT: PERRLA, EOMI, Normocephalic, EAC Clear, - - Ecchymosis in multiple stages of healing at left judaism Oral: Moist Mucosa, No Gingival or Mucosal Lesions/ Ulcerations Neck: Supple, Trachea Midline Lungs: Clear to auscultation, Normal air movement, No rhonchi, No wheeze, No rales Cardiovascular: Regular rate, Regular Rhythm, Normal S1, No Ectopic Activity, Murmur - 3 out of 6 systolic murmur, No rub noted, No Gallop, - - Quieter than normal S2 Abdomen: Bowel Sounds Present, Soft, Non Tender, Non-Distended Extremities: No clubbing, No cyanosis, No edema, Capillary Refill Less than 3 Seconds, Peripheral Pulses Normal Skin: No rashes, No breakdown, - - Pale Musculoskeletal: No Muscle Wasting, Arthritic Changes, Tenderness - Left inferior rib cage Lymphatic: No Cervical, Supraclavicular, or Inguinal Adenopathy Neurological: Cranial nerves II-XII grossly intact, Neuro grossly intact Psych/Mental Status: Appropriate, Flat Affect Microbiology Past 72 Hours 09/01/20 14:03 Mucosa - Nasopharyngeal SARS-CoV-2 Antigen (Rapid) - Final 08/31/20 05:10 Urine, Clean Catch Urine Culture - Preliminary Culture exhibits no growth. Laboratory Results 09/01/20 05:16: WBC 8.1, RBC 4.76, Hgb 14.7, Hct 44.2, MCV 92.9, MCH 30.9, MCHC 33.3, RDW Std Deviation 46.5 H, RDW Coeff of Krissy 13.5, Plt Count 207, MPV 11.7, Immature Gran % (Auto) 0.400, Neut % (Auto) 67.3, Lymph % (Auto) 18.3 L, Hettinger % (Auto) 11.0 H, Eos % (Auto) 2.5, Baso % (Auto) 0.5, Absolute Neuts (auto) 5.5, Absolute Lymphs (auto) 1.48, Nucleated RBC % 0 09/01/20 05:16: Sodium 138, Potassium 3.5, Chloride 103, Carbon Dioxide 29.0, Anion Gap 6, BUN 13, Creatinine 0.71, Estim Creat Clear Calc 37.01, Est GFR (MDRD) Af Amer 100, Est GFR (MDRD) Non-Af 83, BUN/Creatinine Ratio 18.3, Glucose 112 H, Calcium 8.4 L, Phosphorus 3.8, Magnesium 2.1, Total Bilirubin 1.30 H, AST 25, ALT 29, Alkaline Phosphatase 73, Total Protein 6.6, Albumin 3.1 L, Globulin 3.5, Albumin/Globulin Ratio 0.9, Free T4 1.20 Current Medications Acetaminophen (Acetaminophen 325 Mg Tablet) 650 mg PO Q6H PRN PRN PRN Reason: Pain Score 1-10/Temp > 100.7 F Al Hydroxide/Mg Hydroxide (Mag Hydrox/Al Hydrox/Simeth 30 Ml Udc) 30 ml PO Q6H PRN PRN PRN Reason: Gastric Burning Albuterol Sulfate (Albuterol 2.5 Mg/3 Ml Vial.Neb.) 2.5 mg INHALATION Q2H PRN PRN PRN Reason: SOB/Wheezing Apixaban (Apixaban 2.5 Mg Tablet) 2.5 mg PO BID [facility] Last Admin: 09/01/20 09:12 Dose: 2.5 mg Documented by: Atorvastatin Calcium (Atorvastatin Calcium 40 Mg Tablet) 40 mg PO QHS [facility] Last Admin: 08/31/20 21:16 Dose: 40 mg Documented by: Calcium/Vitamin D (Calcium Carb/Vitamin D 1 Tablet Tablet) 1 tablet PO BID@1200,1700 [facility] Last Admin: 09/01/20 11:32 Dose: 1 tablet Documented by: Cholecalciferol (Cholecalciferol (Vit D3) 25 Mcg Tablet (1,000 Units)) 50 mcg PO DAILY [facility] Last Admin: 09/01/20 09:11 Dose: 50 mcg Documented by: Furosemide (Furosemide 40 Mg Tablet) 40 mg PO DAILY [facility] Last Admin: 09/01/20 09:11 Dose: 40 mg Documented by: Levothyroxine Sodium (Levothyroxine 50 Mcg Tablet) 50 mcg PO MoTuWeThFrSa@0600 [facility] Last Admin: 09/01/20 05:58 Dose: 50 mcg Documented by: Lorazepam (Lorazepam 0.5 Mg Tablet) 0.5 mg PO QHS [facility] Last Admin: 08/31/20 21:15 Dose: 0.5 mg Documented by: Melatonin (Melatonin 3 Mg Tablet) 3 mg PO QHS PRN PRN PRN Reason: INSOMNIA Metoprolol Tartrate (Metoprolol Tartrate 50 Mg Tablet) 50 mg PO BID [facility] Last Admin: 09/01/20 09:12 Dose: 50 mg Documented by: Multivitamins (Multivitamins,Therapeutic Tablet) 1 tablet PO DAILY@1200 [facility] Last Admin: 09/01/20 11:32 Dose: 1 tablet Documented by: [id number] Ethyl Esters ([place]-3 Acid Ethyl Esters 1 Gm Capsule) 2 gm PO DAILY [facility] Last Admin: 09/01/20 09:12 Dose: 2 gm Documented by: Ondansetron HCl (Ondansetron 4 Mg/2 Ml Vial) 4 mg IV Q8H PRN PRN PRN Reason: NAUSEA/VOMITING Oxycodone HCl (Oxycodone 5 Mg Tablet) 5 mg PO Q4H PRN PRN PRN Reason: Pain Score 6-10 Pantoprazole Sodium (Pantoprazole Sodium 20 Mg Tablet) 20 mg PO DAILY [facility] Last Admin: 09/01/20 09:11 Dose: 20 mg Documented by: Paroxetine HCl (Paroxetine 10 Mg Tablet) 10 mg PO DAILY [facility] Last Admin: 09/01/20 09:12 Dose: 10 mg Documented by: Risperidone (Risperidone 0.25 Mg Tablet) 0.25 mg PO BID [facility] Last Admin: 09/01/20 09:12 Dose: 0.25 mg Documented by: Senna/Docusate Sodium (Senna/Docusate Sodium 1 Tablet) 2 tablet PO BID PRN PRN PRN Reason: Constipation Sodium Chloride (0.9% Saline Lock 10 Ml Syringe) 10 - 40 ml IV UD PRN PRN Reason: SALINE FLUSH Medical Necessity - Tobacco Use Smoking Status: Never smoker Tobacco Use: Non-smoker Assessment/Plan All Active Problems (Last Reviewed 08/31/20 @ 10:[address] Zulema Beckett, DO) Forehead contusion (Acute) Left rib fracture (Acute) Skin tear of left upper extremity (Acute) Cough (Acute) Dyspnea on exertion (Resolved) Fatigue (Resolved) Nonsustained ventricular tachycardia (Resolved) Biliary calculus (Resolved) Biliary colic (Resolved) Hypokalemia (Resolved) Near syncope (Resolved) Recurrent falls/debility -Rule out any significant neurological issues/cardiac issues that may contribute to this -MRI shows chronic changes but no acute changes -Orthostatic vitals are negative -EEG negative -Urine culture shows no growth -Tox screen was negative for than benzodiazepines despite family telling me she takes these every day -We will discontinue benzodiazepines at discharge -If falls continue to be an issue we may need to consider discontinuing her apixaban in the future -Continue physical therapy/Occupational Therapy -Awaiting approval for discharge to [facility] Euthyroid sick -TSH was mildly elevated at 4.06 but free T4 was within normal limits Mild aortic stenosis -Echo from 09/01/2020 showed an EF of 75%, moderate biatrial enlargement, mild mitral valve insufficiency, poor coaptation of the tricuspid valve with moderate insufficiency, moderate aortic stenosis, trivial pericardial effusion with no cardiac tamponade and right ventricular systolic pressure estimated at 31 mmHg -Last echo was 01/2020 and showed mild -Patient follows with Dr. Whitlock in the outpatient setting -Recommend follow-up 1 to 2 weeks after discharge from TCU--> no urgent needs Left arm skin tear -Seen in place -Wound care per nursing Hallucinations -? related to benzodiazepine withdrawal as the patient had no benzos in her system per tox screen -Discontinue benzos as these may be contributing to her falls -Continue low-dose risperidone at 0.25 mg twice daily -If these persist would benefit from Swapna psych work-up at outpatient follow-up Paroxysmal atrial fibrillation -Patient is currently in atrial fibrillation -Continue apixaban -Continue metoprolol History of cerebellar stroke -No current issues -Could be contributing to balance issues -No evidence of stroke on MRI -PT/OT consultations Hyperlipidemia -Continue atorvastatin Hypertension -Continue Lasix 40 mg daily -Continue metoprolol -Orthostatic vitals were negative Depression -Continue paroxetine Vitamin D deficiency -Continue vitamin D supplementation DVT prophylaxis -Continue NOAC CODE STATUS -Full code Dispo -Awaiting insurance approval for admission to TCU Inpatient E&M: 27033 Subs Hosp L2
--- NOTE | 2020-09-01 16:59 | PCM.DC.SUM ---
Discharge Date and Diagnosis - Problem List Patient Problems: Active and Suspected Problems (Last Reviewed 08/31/20 @ 10:[address] Zulema Beckett DO) Forehead contusion (Acute) Left rib fracture (Acute) Skin tear of left upper extremity (Acute) Cough (Acute) Date of Admission: 08/31/20 Date of Discharge: 09/01/20 - Primary Discharge Diagnosis Acute Problems: Active Problems (Last Reviewed 08/31/20 @ 10:[address] Zulema Beckett DO) Forehead contusion (Acute) Left rib fracture (Acute) Skin tear of left upper extremity (Acute) Cough (Acute) - Secondary Discharge Diagnosis Chronic Problems: Chronic Problems (Last Reviewed 08/31/20 @ 10:[address] Zulema Beckett DO) Dizziness (Chronic) Hallucinations (Chronic) Falls frequently (Chronic) PAF (paroxysmal atrial fibrillation) (Chronic) Non-rheumatic aortic stenosis (Chronic) Essential (primary) hypertension (Chronic) Hyperlipidemia (Chronic) Secondary pulmonary arterial hypertension (Chronic) CVA (cerebral vascular accident) (Chronic 11/16/17) Acute left cerebellar infarct (small) Hospital Course and Treatment Imaging Results: STUDY: CT BRAIN WITHOUT CONTRAST REASON FOR EXAM: Female, 84 years old. injury on [employer] RADIATION DOSAGE (If Supplied By Facility): CTDIvol = ( 44.99 ) mGy, DLP = ( 829.85 ) mGycm TECHNIQUE: Transaxial CT imaging of the brain was performed without administration of intravenous contrast material. Individualized dose optimization techniques were used for this CT. COMPARISON: 08/19/2020. FINDINGS: Normal soft tissue structures. Normal calvarium. There is mild cerebral atrophy with widening of the extra-axial spaces and ventricular dilatation. There are areas of decreased attenuation within the white matter tracts of the supratentorial brain, consistent with microvascular disease changes. Normal basal ganglia and thalami. Normal brainstem. Normal cerebellum. There is atherosclerotic calcification of the vertebral and cavernous carotid arteries.. There is no intracranial hemorrhage. There are no findings of an acute ischemic infarction. There is a polyp or retention cyst in the left maxillary sinus and there is chronic opacification of right posterior ethmoid air cell. There is no evidence for acute sinusitis. CT/Brain/Head without Contrast IMPRESSION: Chronic involutional changes of the brain. No demonstrated acute intracranial process. STUDY: CT ABDOMEN AND PELVIS WITHOUT CONTRAST REASON FOR EXAM: Female, 84 years old. flank injury. Status post fall. RADIATION DOSAGE (If Supplied By Facility): CTDIvol = ( 10.59 ) mGy, DLP = ( 520.99 ) mGycm TECHNIQUE: Transaxial images were obtained from the dome of the diaphragm to the symphysis pubis without oral contrast, and without intravenous contrast. Sagittal and coronal images were reconstructed. Sensitivity for subtle traumatic injury to solid organs is limited by lack of IV contrast. Individualized dose optimization techniques were used for this CT. COMPARISON: None. FINDINGS: There is mild atelectasis in the visualized posterior lung bases. The heart is enlarged. Normal liver. There is non-visualization of the gallbladder, which may be secondary to either contraction or a prior cholecystectomy. Normal spleen. Normal pancreas. Normal bilateral adrenal glands. Normal right kidney. Normal left kidney. There is a large hiatal hernia. Normal small intestine. There are multiple colonic diverticula consistent with diverticulosis. There is prominent colonic feces, which may represent constipation. The appendix is seen on axial images 96-98 and it appears normal. There is diffuse atherosclerotic calcification of the abdominal aorta with elongation and tortuosity, but without a demonstrated aneurysm. Normal inferior vena cava. Normal retroperitoneum. Normal urinary bladder. Normal abdominal wall. There are acute traumatic fractures through the visualized posterior segments of the left 10th, 11th, and 12th ribs There is lumbar levoscoliosis with multilevel degenerative changes. CT/Abdomen/Pelvis without Cont IMPRESSION: Acute traumatic fractures of the posterior segments of the left 10th, 11th, and 12th ribs. No other visible evidence for significant acute internal injury. Large hiatal hernia. Colonic diverticulosis, without evidence for acute diverticulitis. Atherosclerosis. Nonvisualization of the gallbladder. STUDY: MRI BRAIN WITHOUT CONTRAST REASON FOR EXAM: Female, 84 years old. syncope TECHNIQUE: Standardized multiplanar fat and water weighted pulse sequences were obtained. COMPARISON: CT earlier today, MRI 11/17/2017 FINDINGS: There is moderate cerebral atrophy with widening of the extra-axial spaces and ventricular dilatation. There are multiple white matter hyperintensities, distributed throughout the deep white matter tracts of the cerebral hemispheres, consistent with moderate chronic white matter ischemic changes. There is no evidence for recent intracranial ischemia or other cause of cytotoxic edema on diffusion weighted imaging (DWI). Normal T2* images of the brain without demonstrated susceptibility artifact. There is no demonstrated hemosiderin stain. Normal bilateral basal ganglia. Normal thalami. There is no extra-axial fluid accumulation. Normal flow voids within the major intracranial circulation suggesting patency by spin echo criteria. Normal sella turcica, pituitary gland, infundibular stalk, optic chiasm and hypothalamus. Normal tectal plate and pineal gland. There are chronic white matter ischemic changes of the tata. The midbrain and medulla are otherwise normal. Normal cerebellum. Normal basal cisterns. Normal bilateral temporal bones. Normal bilateral internal auditory canals. There are bilateral ocular lens implants with otherwise normal intraorbital contents. Normal visualized paranasal sinuses. Normal calvarium and skull base. Normal visualized soft tissue structures. Normal visualized upper cervical spine. MRI/Brain without Contrast IMPRESSION: Involutional changes of the brain, as described above. No acute infarct. Reason For Study: Arrhythmia Procedure This was a 2D Doppler, Color Flow transthoracic echocardiogram. The study was technically difficult. Exam performed portable in patient room. Left Ventricle Normal LV size. Left ventricular systolic function is hyperdynamic. The estimated ejection fraction is 75 %. Unable to assess diastolic dysfunction. No regional wall motion abnormalities noted. Right Ventricle Normal RV size. Normal systolic function. Atria The left atrium is moderately enlarged. The right atrium is moderately enlarged. No doppler evidence for ASD. Mitral Valve There is moderate mitral annular calcification. Mild diffuse mitral valve thickening. Mild (1+) mitral valve insufficiency. Tricuspid Valve Poor coaptation of the tricuspid valve. Moderate (2+) tricuspid valve insufficiency. Right ventricular systolic pressure estimated to be 31 mmHg. Aortic Valve Trisinus/trileaflet aortic valve. Mild diffuse aortic valve thickening. Moderate focal aortic valve calcification. Moderate aortic stenosis. Pulmonic Valve The pulmonic valve is not well visualized. Great Vessels Normal sized aortic root. Pericardium/Pleural Trivial pericardial effusion. There are no echocardiographic indications of cardiac tamponade. MMode/2D Measurements & Calculations LVIDd: 3.4 cm IVSd: 1.2 cm LVOT diam: 2.0 cm LVIDs: 1.3 cm LVPWd: 1.2 cm LVOT area: 3.0 cm2 RVDd: 3.6 cm FS: 61.4 % Ao root diam: 3.3 cm LAV(MOD-bp): 91.8 ml LA A4 area: 26.2 cm2 LAV(MOD-bp) Indexed: 55.7 ml/m2 LAV(MOD-sp2): 94.1 ml LAV(MOD-sp4): 77.0 ml LA dimension(2D): 5.0 cm RA A4 area: 26.4 cm2 Doppler Measurements & Calculations MV E max domitila: 123.8 cm/sec Ao V2 max: 287.4 cm/sec LV V1 max: 89.8 cm/sec Ao max P.1 mmHg LV V1 max P.2 mmHg Ao V2 mean: 201.3 cm/sec LV V1 mean P.6 mmHg Ao mean P.1 mmHg LV V1 mean: 60.2 cm/sec Ao V2 VTI: 56.5 cm LV V1 VTI: 17.3 cm DYLAN(I,D): 0.93 cm2 DYLAN(V,D): 0.95 cm2 SV(LVOT): 52.6 ml PA V2 max: 73.6 cm/sec TR max domitila: 261.4 cm/sec TR max P.6 mmHg ECHO/Echo Complete Interpretation Summary The study was technically difficult. Left ventricular systolic function is hyperdynamic. The estimated ejection fraction is 75 %. The left atrium is moderately enlarged. The right atrium is moderately enlarged. There is moderate mitral annular calcification. Mild diffuse mitral valve thickening. Mild (1+) mitral valve insufficiency. Poor coaptation of the tricuspid valve. Moderate (2+) tricuspid valve insufficiency. Moderate aortic stenosis. Trivial pericardial effusion. There are no echocardiographic indications of cardiac tamponade. Right ventricular systolic pressure estimated to be 31 mmHg. Unable to assess diastolic dysfunction. Operations: None Procedures: 2-D Echocardiogram, Electroencephalogram, - - Brain MRI Summary of Care Provided: Mrs. Pathak is a 84 year old WF with a past medical history of cerebellar stroke, hypertension, hyperlipidemia, mild aortic valve stenosis, paroxysmal atrial fibrillation, PAH-secondary, vitamin D deficiency, hypothyroidism, GERD, severe depression, and chronic benzodiazepine use who presented to the emergency department at [facility] on 08/31/2020 with chief complaint of dizziness/lightheadedness, frequent falls, and hallucinations. She presented with her grandson whom she lives with. He reports she does not have a history of dementia or any psychiatric illnesses other than depression at baseline. She was seen earlier this month in the emergency department for falls and at that time it was attributed to her Ativan usage. Her doses were reduced and she was discharged. Her son reports that since that point time nothing is really changed and that the hallucinations have gotten worse over the past several days. He also states that she has had several falls which appear to typically be to the left and most recently she fell against the wall and struck her head and her left flank area. Family is taking control of her medications. Of note, a tox screen done in the emergency department showed no benzodiazepines in her system. Her vital signs in the emergency department were overall unremarkable other than some mild hypertension. Labs were done and overall unremarkable. Her CBC shows no renal abnormalities. Her CMP shows a mildly elevated AST at 45. Her troponin is negative. Her EKG shows atrial fibrillation with rate control and incomplete right bundle branch block and no ischemic changes. Her UA shows some leuk esterase and white blood cells but rare bacteria and a culture is pending at this time. The specific gravity was mildly elevated at 1.015. Her TSH was 4.06. A CT of her brain without contrast was performed and showed chronic involutional changes but no acute intracranial processes. CT of her abdomen and pelvis without contrast shows acute fractures of the posterior segments of the left 10th through 12th ribs, a large hiatal hernia, colonic diverticulosis and atherosclerosis. An MRI performed and was negative for any acute infarction and did not show cerebellar infarction either. An EEG was negative. Her urine culture was negative for growth. Her echocardiogram showed an EF of 75%, bilateral atrial enlargement, mild mitral valve insufficiency, moderate tricuspid valve insufficiency, moderate aortic stenosis, and trivial pericardial effusion with no evidence of cardiac tamponade and a right ventricular systolic pressure of 31 mmHg. Her labs remained unremarkable throughout her stay. She was seen by physical therapy and Occupational Therapy and they recommended continued rehab after discharge. If falls continue to be an issue we may need to consider discontinuing her oral anticoagulation for her chronic atrial fibrillation. We initiated the very low-dose Risperdal for her hallucinations although I question with a negative tox screen if this may have been related to benzodiazepine withdrawal. We will discontinue her benzodiazepines upon discharge as they may be contributing to her fall risk at baseline. If behavior continues to be an issue she may need an outpatient Swapna psych follow-up as well. She is to follow-up with her primary care physician Dr. Beebe in 1 to 2 weeks after discharge from TCU and with Dr. Whitlock as scheduled. Discharge diagnoses Recurrent falls Debility Moderate aortic stenosis Mild mitral valve insufficiency Moderate tricuspid valve insufficiency PAF History of cerebellar stroke Hallucinations Hyperlipidemia Hypertension Depression Vitamin D deficiency ? Mild cognitive impairment Discharge time greater than 35 minutes Patient Problems: Active and Suspected Problems (Last Reviewed 08/31/20 @ 10:[address] Zulema Beckett, DO) Forehead contusion (Acute) Left rib fracture (Acute) Skin tear of left upper extremity (Acute) Cough (Acute) - Physical Exam Vitals/I&O's: Vital Signs Temp Pulse Resp BP Pulse Ox 97.6 F L 65 18 141/72 H 96 09/01/20 16:56 09/01/20 16:56 09/01/20 16:56 09/01/20 16:56 09/01/20 16:56 Oxygen Delivery Method Room Air Weight: 59.3 kg Body Mass Index (BMI) 21.7 Orthostatic Vital Signs Start: 09/01/20 05:50 Freq: q24h Status: Active Protocol: Activity Type Activity Date Activity User E-Sign Co-Sign Detail Recorded Client Recorded Date Recorded By Document 09/01/20 05:50 CM [id number] 09/01/20 05:57 CM 09/01/20 05:50 Orthostatic Vitals Standing -Blood Pressure (90/60-120/80) 165/86 H -Extremity Use Right Arm -Pulse Rate (60-100) 71 Sitting -Blood Pressure (90/60-120/80) 148/80 H -Extremity Use Right Arm -Pulse Rate (60-100) 72 Lying -Blood Pressure (90/60-120/80) 130/60 H -Extremity Use Right Arm -Pulse Rate (60-100) 78 Intake and Output for Last 24 Hours 08/30/20 08/31/20 09/01/20 23:59 23:59 23:59 Intake Total 400 / 400 315 / 315 Balance 400 / 400 315 / 315 Microbiology Past 72 Hours 09/01/20 14:03 Mucosa - Nasopharyngeal SARS-CoV-2 Antigen (Rapid) - Final 08/31/20 05:10 Urine, Clean Catch Urine Culture - Preliminary Culture exhibits no growth. Laboratory Results 09/01/20 05:16: WBC 8.1, RBC 4.76, Hgb 14.7, Hct 44.2, MCV 92.9, MCH 30.9, MCHC 33.3, RDW Std Deviation 46.5 H, RDW Coeff of Krissy 13.5, Plt Count 207, MPV 11.7, Immature Gran % (Auto) 0.400, Neut % (Auto) 67.3, Lymph % (Auto) 18.3 L, Mcculloch % (Auto) 11.0 H, Eos % (Auto) 2.5, Baso % (Auto) 0.5, Absolute Neuts (auto) 5.5, Absolute Lymphs (auto) 1.48, Nucleated RBC % 0 09/01/20 05:16: Sodium 138, Potassium 3.5, Chloride 103, Carbon Dioxide 29.0, Anion Gap 6, BUN 13, Creatinine 0.71, Estim Creat Clear Calc 37.01, Est GFR (MDRD) Af Amer 100, Est GFR (MDRD) Non-Af 83, BUN/Creatinine Ratio 18.3, Glucose 112 H, Calcium 8.4 L, Phosphorus 3.8, Magnesium 2.1, Total Bilirubin 1.30 H, AST 25, ALT 29, Alkaline Phosphatase 73, Total Protein 6.6, Albumin 3.1 L, Globulin 3.5, Albumin/Globulin Ratio 0.9, Free T4 1.20 Current Medications Acetaminophen (Acetaminophen 325 Mg Tablet) 650 mg PO Q6H PRN PRN PRN Reason: Pain Score 1-10/Temp > 100.7 F Al Hydroxide/Mg Hydroxide (Mag Hydrox/Al Hydrox/Simeth 30 Ml Udc) 30 ml PO Q6H PRN PRN PRN Reason: Gastric Burning Albuterol Sulfate (Albuterol 2.5 Mg/3 Ml Vial.Neb.) 2.5 mg INHALATION Q2H PRN PRN PRN Reason: SOB/Wheezing Apixaban (Apixaban 2.5 Mg Tablet) 2.5 mg PO BID COUNT INCLUDES THE [facility] Last Admin: 09/01/20 09:12 Dose: 2.5 mg Documented by: Atorvastatin Calcium (Atorvastatin Calcium 40 Mg Tablet) 40 mg PO QHS COUNT INCLUDES THE [facility] Last Admin: 08/31/20 21:16 Dose: 40 mg Documented by: Calcium/Vitamin D (Calcium Carb/Vitamin D 1 Tablet Tablet) 1 tablet PO BID@1200,1700 COUNT INCLUDES THE [facility] Last Admin: 09/01/20 11:32 Dose: 1 tablet Documented by: Cholecalciferol (Cholecalciferol (Vit D3) 25 Mcg Tablet (1,000 Units)) 50 mcg PO DAILY COUNT INCLUDES THE [facility] Last Admin: 09/01/20 09:11 Dose: 50 mcg Documented by: Furosemide (Furosemide 40 Mg Tablet) 40 mg PO DAILY COUNT INCLUDES THE [facility] Last Admin: 09/01/20 09:11 Dose: 40 mg Documented by: Levothyroxine Sodium (Levothyroxine 50 Mcg Tablet) 50 mcg PO MoTuWeThFrSa@0600 COUNT INCLUDES THE [facility] Last Admin: 09/01/20 05:58 Dose: 50 mcg Documented by: Lorazepam (Lorazepam 0.5 Mg Tablet) 0.5 mg PO QHS COUNT INCLUDES THE [facility] Last Admin: 08/31/20 21:15 Dose: 0.5 mg Documented by: Melatonin (Melatonin 3 Mg Tablet) 3 mg PO QHS PRN PRN PRN Reason: INSOMNIA Metoprolol Tartrate (Metoprolol Tartrate 50 Mg Tablet) 50 mg PO BID COUNT INCLUDES THE [facility] Last Admin: 09/01/20 09:12 Dose: 50 mg Documented by: Multivitamins (Multivitamins,Therapeutic Tablet) 1 tablet PO DAILY@1200 COUNT INCLUDES THE [facility] Last Admin: 09/01/20 11:32 Dose: 1 tablet Documented by: [id number] Ethyl Esters (Elkins-3 Acid Ethyl Esters 1 Gm Capsule) 2 gm PO DAILY COUNT INCLUDES THE [facility] Last Admin: 09/01/20 09:12 Dose: 2 gm Documented by: Ondansetron HCl (Ondansetron 4 Mg/2 Ml Vial) 4 mg IV Q8H PRN PRN PRN Reason: NAUSEA/VOMITING Oxycodone HCl (Oxycodone 5 Mg Tablet) 5 mg PO Q4H PRN PRN PRN Reason: Pain Score 6-10 Pantoprazole Sodium (Pantoprazole Sodium 20 Mg Tablet) 20 mg PO DAILY COUNT INCLUDES THE [facility] Last Admin: 09/01/20 09:11 Dose: 20 mg Documented by: Paroxetine HCl (Paroxetine 10 Mg Tablet) 10 mg PO DAILY COUNT INCLUDES THE [facility] Last Admin: 09/01/20 09:12 Dose: 10 mg Documented by: Risperidone (Risperidone 0.25 Mg Tablet) 0.25 mg PO BID COUNT INCLUDES THE [facility] Last Admin: 09/01/20 09:12 Dose: 0.25 mg Documented by: Senna/Docusate Sodium (Senna/Docusate Sodium 1 Tablet) 2 tablet PO BID PRN PRN PRN Reason: Constipation Sodium Chloride (0.9% Saline Lock 10 Ml Syringe) 10 - 40 ml IV UD PRN PRN Reason: SALINE FLUSH Home Medications: Medications to take at Discharge Metoprolol Tartrate [Lopressor (beta meghana)] 50 mg PO BID 05/13/14 Calcium Carbonate/Vitamin D3 [Caltrate 600 Plus D3 Tablet] 1 ea PO DAILY 11/16/17 Gluc Fritz/Chondro Fritz A/Vit C/Mn [Glucosamine-Chondroitin Cap] 2 ea PO DAILY 11/16/17 Multivitamin [Multiple Vitamins] 1 ea PO DAILY 11/16/17 Omeprazole Magnesium [Prilosec Otc] 20 mg PO DAILY 11/16/17 Atorvastatin Calcium [Lipitor] 40 mg PO QHS #30 tab 12/12/17 cholecalciferol (vitamin D3) 50 mcg (2,000 unit) chewable tablet 3,000 unit PO DAILY 05/17/19 levothyroxine 50 mcg tablet 50 mcg PO .COMPLEX #1 tab 02/03/20 paroxetine HCl 10 mg tablet 10 mg PO DAILY #1 tab 02/03/20 biotin 10,000 mcg capsule 10,000 mcg PO DAILY 02/04/20 furosemide 40 mg tablet 40 mg PO DAILY #90 tab 02/04/20 omega-3 fatty acids 1,000 mg capsule 1,000 mg PO BID cap 02/04/20 apixaban 2.5 mg tablet 2.5 mg PO BID #60 tab 02/28/20 Triamcinolone 0.5% Cream [Kenalog] 1 applic TOPICAL BID PRN 08/31/20 Acetaminophen [Tylenol Tablet] 650 mg PO Q6H PRN PRN tablet 09/01/20 Albuterol Aerosols [Ventolin Aerosols] 2.5 mg INHALATION Q2H PRN PRN vial.neb. 09/01/20 Melatonin 3 mg PO QHS PRN PRN tablet 09/01/20 Oxycodone [Oxyir] 5 mg PO Q4H PRN PRN 1 Days #6 tablet 09/01/20 Risperidone [Risperdal] 0.25 mg PO BID tablet 09/01/20 Senna/Docusate Sodium [Senokot-S] 2 tablet PO BID PRN PRN tablet 09/01/20 Following Prescriptions Were Given to Patient: Oxycodone [Oxyir] 5 mg PO Q4H PRN PRN 1 Days #6 tablet PRN Reason: Pain Score 6-10 Prescription Printed Primary Care Physician: Aguila Beebe DO [Primary Care Provider] - Please follow up with your Primary Care Physician in: 1-2 weeks after discharge from TCU Please Follow Up With: Juwan Whitlock MD When: as scheduled Medical Necessity - Tobacco Use Smoking Status: Never smoker Tobacco Use: Non-smoker Meaningful Use Info Meaningful Use Diagnoses (Choose all that apply): None applicable Inpatient E&M: [id number] [facility]
--- NOTE | 2020-09-01 18:21 | NURSING ---
Report called to nurse Mosley, for pt transfer to TCU.
== END 2020-09-01 18:51 | disposition skilled nursing facility (03) | DRG 149 ==
LOC: ED 06:01 → PCU 08:02
PROVIDERS: Admitting Provider Internal Medicine; Emergency Provider Emergency Medicine; PCP Student in an Organized Health Care Education/Training Program; Visit Provider Internal Medicine
DX: R42 Dizziness and giddiness (principal); S22.42XA Multiple fractures of ribs, left side, initial encounter for closed fracture; F32.3 Major depressive disorder, single episode, severe with psychotic features; F13.239 Sedative, hypnotic or anxiolytic dependence with withdrawal, unspecified; R53.1 Weakness; S51.012A Laceration without foreign body of left elbow, initial encounter; S00.83XA Contusion of other part of head, initial encounter; W19.XXXA Unspecified fall, initial encounter; I48.0 Paroxysmal atrial fibrillation; I10 Essential (primary) hypertension; I27.21 Secondary pulmonary arterial hypertension; E03.9 Hypothyroidism, unspecified; K21.9 Gastro-esophageal reflux disease without esophagitis; I08.3 Combined rheumatic disorders of mitral, aortic and tricuspid valves; E55.9 Vitamin D deficiency, unspecified; E78.00 Pure hypercholesterolemia, unspecified; K57.30 Diverticulosis of large intestine without perforation or abscess without bleeding; K44.9 Diaphragmatic hernia without obstruction or gangrene; R29.6 Repeated falls; Z79.01 Long term (current) use of anticoagulants; T42.4X5A Adverse effect of benzodiazepines, initial encounter; Z79.890 Hormone replacement therapy; Z79.899 Other long term (current) drug therapy; Z86.73 Personal history of transient ischemic attack (TIA), and cerebral infarction without residual deficits
CPT/HCPCS: 70450; 70551; 74176; 80053; 80307; 81001; 83735; 84100; 84439; 84443; 84484; 85025; 87086; 87426; 93005; 93306; 95819; 97110; 97162; 97166; 97530; 97802; 99285; A4216

== ENCOUNTER 2020-09-01 18:54 | Inpatient (IN) | payer MEDICARE, SELFPAY ==
[2020-08-31 09:40] VITALS: BMI 21.7
[2020-09-01 19:25] VITALS: BP 142/90; PULSE 84; PULSE 88; RESP 16; RESP 18; TEMP 37.4; O2SAT 92; BMI 18.8; BMI 21.3
[2020-09-01] MEDS: oxyCODONE 5 MG Tablet PO (20:49)
[2020-09-01] MEDS: Atorvastatin Calcium 40 MG Tablet PO (20:49)
[2020-09-01] MEDS: Menthol/Lanolin/Calamine/Znox 113 GM Tube 1 APPLIC TOPICAL (20:52)
[2020-09-02 05:00] VITALS: BP 135/51; PULSE 90; RESP 16; TEMP 36.4; O2SAT 95
[2020-09-02 05:20] LABS: Absolute Lymphocyte Count 1.52 X10^3/uL (0.83-4.51); Absolute Neutrophil Count 5.5 X10^3/uL (2.0-7.7); Basophil# 0.04 X10^3/uL; Basophil% 0.5 % (0-1); Eosinophil# 0.28 X10^3/uL; Eosinophils% 3.3 % (0-5); Hematocrit 42.7 % (37-47); Hemoglobin 14.1 g/dL (12.0-15.0); Lymphocyte # 1.52 X10^3/ul (4.0); Lymphocyte % 18.1 % (19-41); Mean Corpuscular Hgb 30.8 pg (27.0-32.0); Mean Corpuscular Volume 93.2 fL (81-99); Mean Platelet Vol. 11.8 fl (6.2-12.0); Monocyte# 1.04 X10^3/uL; Monocyte% 12.4 % (0-10); NRBC Flagged by Analyzer 0 % (0-5); Neutrophil % 65.3 % (47-70); Platelet Count 215 K/mm3 (150-450); RBC Distribution Width CV 13.5 % (11.6-14.6); Red Blood Count 4.58 M/mm3 (4.2-5.4); White Blood Count 8.4 K/mm3 (4.4-11.0)
[2020-09-02 05:35] LABS: Anion Gap 4 (5-15); BUN 13 mg/dL (7-18); BUN/Creat Ratio 20.5 RATIO (10-20); Calcium,Total 8.3 mg/dL (8.5-10.1); Chloride 102 mmol/L (98-107); Creatinine, Serum 0.63 mg/dL (0.55-1.02); EST Glomerular Filtration Rate 95 mL/min (>60); Est Glom Filt Rate - Afr Amer 115 mL/min (>60); Estimated Creatinine Clearance 37.01 ml/min; Glucose 111 mg/dL (74-106); Potassium 3.3 mmol/L (3.5-5.1); Sodium Level 136 mmol/L (136-145)
[2020-09-02 05:43] VITALS: BP 135/51; PULSE 90
[2020-09-02] MEDS: PARoxetine 10 MG Tablet PO (05:43)
[2020-09-02] MEDS: APIXABAN 2.5 MG TABLET PO ×2 (05:43→17:47)
[2020-09-02] MEDS: Furosemide 40 MG Tablet PO (05:43)
[2020-09-02] MEDS: RisperiDONE 0.25 MG Tablet PO ×2 (05:43→17:46)
[2020-09-02] MEDS: Metoprolol Tartrate 50 MG Tablet PO ×2 (05:43→17:46)
[2020-09-02] MEDS: Levothyroxine 50 MCG Tablet PO (05:43)
[2020-09-02] MEDS: Pantoprazole Sodium 20 MG Tablet PO (05:43)
[2020-09-02] MEDS: Menthol/Lanolin/Calamine/Znox 113 GM Tube 1 APPLIC TOPICAL ×2 (05:43→17:48)
[2020-09-02] MEDS: Multivitamins,Therapeutic Tablet 1 TABLET PO (09:16)
[2020-09-02] MEDS: Cholecalciferol (VIT D3) 25 MCG TABLET (1,000 UNITS) 75 MCG PO (09:16)
[2020-09-02] MEDS: Calcium Carb/Vitamin D 1 TABLET Tablet PO (09:16)
[2020-09-02] MEDS: Omega-3 Acid Ethyl Esters 1 GM Capsule PO ×2 (09:18→17:46)
[2020-09-02] MEDS: Tuberculin,Purif.prot.deriv. 50 TU/ML Vial 5 ML ID (10:32)
--- NOTE | 2020-09-02 13:07 | NURSING ---
This nurse talked with Grandmarlee Garcia today, Jose brought in covnc vaccine record and a copy was made for the chart, Jose would like to schedule visit, Activities aware and said they will be in contact with him
--- NOTE | 2020-09-02 15:02 | HP.PCM_ITS ---
Problem List (1) Dizziness Status: Chronic (2) Forehead contusion Status: Acute (3) Left rib fracture Status: Acute (4) Skin tear of left upper extremity Status: Acute (5) Hallucinations Status: Chronic (6) Falls frequently Status: Chronic (7) PAF (paroxysmal atrial fibrillation) Status: Chronic (8) Cough Status: Acute (9) Non-rheumatic aortic stenosis Status: Chronic (10) Essential (primary) hypertension Status: Chronic (11) Hyperlipidemia Status: Chronic Qualifiers: (12) Secondary pulmonary arterial hypertension Status: Chronic (13) CVA (cerebral vascular accident) Status: Chronic Comment: Acute left cerebellar infarct (small) History of Present Illness Date of Admission: 09/02/20 Chief Complaint: Physical debility Denae Pathak is a 84 year old F with a PMH of cerebellar stroke, hypertension, hyperlipidemia, mild aortic valve stenosis, paroxysmal atrial fibrillation, chronic anticoagulation, pulmonary hypertension, vitamin D deficiency, hypothyroidism, GERD, severe depression, chronic benzodiazepine use and frequent falls who presented to the ED at [facility] on 08/31/2020 with chief complaint of dizziness/lightheadedness, hallucinations and frequent falls. She is currently living with her grandson. She was seen earlier in August with complaint of frequent falls and it was attributed to her Ativan usage at that time. Tox screen in the emergency department was negative for benzodiazepines. A CT scan of the brain showed chronic involutional changes with no acute intracranial findings. CT scan of the abdomen and pelvis incidentally showed acute fractures of the posterior segments of the left 10th through 12th ribs, a large hiatal hernia, colonic diverticulosis and atherosclerosis. Patient was admitted to the hospital because her grandson is no longer able to provide care for her and he agreed that she will need placement. He did state that she has a walker at home but she does not use it. While in the hospital she had an echocardiogram that showed a 75% left ventricular ejection fraction with no regional wall motion abnormalities. The right ventricle was of normal size and the right ventricle had normal systolic function. There was biatrial enlargement. There was mild MR and 2+ TR. There is moderate aortic stenosis present. Work up in the hospital was unremarkable for acute disease and she was transferred to the TCU on 09/01/20 for PT/OT. [facility] but, they do not take her insurance. While on the acute side of the hospital she was started on Risperdal for hallucinations and Benzo's(which she has taken for a long time) were not restarted. She has been living with her grandson and his and they have been setting up her pills but, they do not watch her take the medications and sometimes they find them on the floor. She has been having problems with memory/confabulation for the past year. They say that she also hallucinates........it is not clear to me if she is actually seeing things that are not there or she is asking non- sensical questions like where is the dog while she is on TCU. She hides things in her room and blames it on the dog. She forgets that she needs to ambulate with the FWW and she has had 4-5 falls in the past 1 month. Past Medical History Past Medical History (Chronic Problems): Chronic Problems (Last Reviewed 09/04/20 @ 17:[address] Anuja Stewart DO) Dizziness (Chronic) Hallucinations (Chronic) Falls frequently (Chronic) PAF (paroxysmal atrial fibrillation) (Chronic) Non-rheumatic aortic stenosis (Chronic) Essential (primary) hypertension (Chronic) Hyperlipidemia (Chronic) Secondary pulmonary arterial hypertension (Chronic) CVA (cerebral vascular accident) (Chronic 11/16/17) Acute left cerebellar infarct (small) Medical History: Medical History (Last Reviewed 09/04/20 @ 17:[address] Anuja Stewart DO) PAF (paroxysmal atrial fibrillation) (Chronic) I48.0 Non-rheumatic aortic stenosis (Chronic) I35.0 Essential (primary) hypertension (Chronic) I10 Hyperlipidemia (Chronic) E78.5 Secondary pulmonary arterial hypertension (Chronic) I27.21 CVA (cerebral vascular accident) (Chronic) Onset Date: 11/16/17 I63.9 Acute left cerebellar infarct (small) GERD (gastroesophageal reflux disease) K21.9 Hypothyroidism E03.9 Hypokalemia E87.6 Nonsustained ventricular tachycardia (Resolved) I47.2 Allergies aspirin Allergy (Verified 08/19/20 22:52) Hives tetanus immune globulin Allergy (Verified 08/19/20 22:52) Rash sulfamethoxazole [From Bactrim] Adverse Reaction (Verified 08/19/20 23:21) Rash trimethoprim [From Bactrim] Adverse Reaction (Verified 08/19/20 23:21) Rash Home Medications: Ambulatory Orders Medication Instructions Recorded Metoprolol Tartrate [Lopressor 50 mg PO BID 05/13/14 (beta meghana)] Calcium Carbonate/Vitamin D3 1 ea PO DAILY 11/16/17 [Caltrate 600 Plus D3 Tablet] Gluc Fritz/Chondro Fritz A/Vit C/Mn 2 ea PO DAILY 11/16/17 [Glucosamine-Chondroitin Cap] Multivitamin [Multiple Vitamins] 1 ea PO DAILY 11/16/17 Omeprazole Magnesium [Prilosec Otc] 20 mg PO DAILY 11/16/17 Atorvastatin Calcium [Lipitor] 40 mg PO QHS #30 tab 12/12/17 cholecalciferol (vitamin D3) 50 3,000 unit PO DAILY 05/17/19 mcg (2,000 unit) chewable tablet biotin 10,000 mcg capsule 10,000 mcg PO DAILY 02/04/20 omega-3 fatty acids 1,000 mg 1,000 mg PO BID cap 02/04/20 capsule Triamcinolone 0.5% Cream [Kenalog] 1 applic TOPICAL BID PRN 08/31/20 Acetaminophen [Tylenol Tablet] 650 mg PO Q6H PRN PRN tablet 09/01/20 Albuterol Aerosols [Ventolin 2.5 mg INHALATION Q2H PRN PRN 09/01/20 Aerosols] vial.neb. Apixaban [Eliquis] 2.5 mg PO BID 09/01/20 Furosemide 40 mg PO DAILY 09/01/20 Levothyroxine Sodium [Synthroid] 50 mcg PO DAILY 09/01/20 Melatonin 3 mg PO QHS PRN PRN tablet 09/01/20 Oxycodone [Oxyir] 5 mg PO Q4H PRN PRN 1 Days #6 09/01/20 tablet Paroxetine HCl 10 mg PO DAILY 09/01/20 Risperidone [Risperdal] 0.25 mg PO BID 09/01/20 Senna/Docusate Sodium [Senokot-S] 2 tablet PO BID PRN PRN tablet 09/01/20 Surgical History: Surgical History (Last Reviewed 08/31/20 @ 10:[address] Zulema Beckett, DO) History of cholecystectomy Z90.49 Surgical History: - - Breast biopsy otherwise unremarkable Psychiatric History: No pertinent psych hx CONSTRUCTION TECH History: No pertinent CONSTRUCTION TECH history Smoking Status: Never smoker Tobacco Use: Non-smoker - *Family History Sibling Family History: Family History (Last Reviewed 08/31/20 @ 10:[address] Zulema Beckett DO) Mother Heart disease CVA (cerebral vascular accident) History Items: - - Gallstones. She had a sister with PD, memory loss and hallucinations per her granson Maternal Family History: Family History (Last Reviewed 08/31/20 @ 10:[address] Zulema Beckett DO) Mother Heart disease CVA (cerebral vascular accident) History Items: No pertinent history Paternal Family History: Family History (Last Reviewed 08/31/20 @ 10:[address] Zulema Beckett DO) Mother Heart disease CVA (cerebral vascular accident) History Items: No pertinent history Review of Systems Constitutional: Denies: Chills, Fever, Weight Change Eyes: Denies: Vision Change HEENT: Reports: Difficulty Hearing - mild. Denies: Difficulty Swallowing, Head Aches, Nasal Congestion, Sinus Congestion, Sinus Drainage, Sore Throat Cardiovascular: Denies: Chest Pain, Edema, Light Headedness, Palpitations Respiratory: Denies: Cough, Shortness of Breath, Shortness of breath at rest, Sputum production Gastrointestinal: Denies: Abdominal Pain, Diarrhea, Nausea, Vomiting Genitourinary: Denies: Dysuria Musculoskeletal: Denies: Joint Pain, Joint Tenderness Skin: Denies: Jaundice, Rash, Wounds Neurological: Reports: Balance problems - likiely due to the cerebellar stroke in the past, Confusion. Denies: Slurred speech, Focal weakness, Numbness, Tingling, Tremor, Seizures Psychiatric: Denies: Anxiety, Depression, Homicidal Ideations, Suicidal Ideations Endocrine: Denies: Change in Body Habitus Hematologic/ Lymphatic: Denies: Easy Bruising, Easy Bleeding, Hx of blood clot VTE Information - Inpt Only VTE Present on Admission: No VTE Mechan Device Prophylaxis: Knee High YEIMY Hose Reason prophylaxis not ordered:: Treatment Not Indicated - she is on full dose anticoagulation for PAF Patient Problems: Active and Suspected Problems (Last Reviewed 09/04/20 @ 17:[address] Anuja Stewart DO) Forehead contusion (Acute) Left rib fracture (Acute) Skin tear of left upper extremity (Acute) Cough (Acute) - Physical Exam Vitals/I&O's: Vital Signs Temp Pulse Resp BP Pulse Ox 97.5 F L 90 16 135/51 H 95 09/02/20 05:00 09/02/20 05:43 09/02/20 05:00 09/02/20 05:43 09/02/20 05:00 Oxygen Delivery Method Room Air Weight: 128 lb 7 oz Body Mass Index (BMI) 21.3 Intake and Output for Last 24 Hours 08/31/20 09/01/20 09/02/20 23:59 23:59 23:59 Intake Total 360 / 360 Balance 360 / 360 General: Alert, Oriented x3, Cooperative, No apparent distress, Well developed, Well nourished, - - Appears comfortable sitting in the recliner at the bedside. HEENT: Atraumatic, PERRLA, EOMI Oral: Moist Mucosa, No Gingival or Mucosal Lesions/ Ulcerations, - - She is missing several teeth Neck: Supple, Negative Carotid Bruits, No Nodes, Trachea Midline Lungs: Clear to auscultation, No rhonchi, No wheeze, No rales Cardiovascular: Irregular Rate, Murmur - She has a systolic murmur 2/6 at the second right intercostal space and also a soft systolic murmur at the lower left sternal border. The rate is adequately controlled and she denies palpitations., No rub noted, No Gallop Abdomen: Bowel Sounds Present, Soft, Non Tender, Non-Distended, - - No guarding with palpation Extremities: No clubbing, No cyanosis, No edema, No Calf Tenderness Skin: No rashes, No breakdown Musculoskeletal: Arthritic Changes Neurological: Cranial nerves II-XII grossly intact, Neuro grossly intact Psych/Mental Status: - - She is very pleasant and appropriate for me and was not hallucinating Laboratory Results 09/02/20 05:05: WBC 8.4, RBC 4.58, Hgb 14.1, Hct 42.7, MCV 93.2, MCH 30.8, MCHC 33.0, RDW Std Deviation 46.0 H, RDW Coeff of Krissy 13.5, Plt Count 215, MPV 11.8, Immature Gran % (Auto) 0.400, Neut % (Auto) 65.3, Lymph % (Auto) 18.1 L, [place] % (Auto) 12.4 H, Eos % (Auto) 3.3, Baso % (Auto) 0.5, Absolute Neuts (auto) 5.5, Absolute Lymphs (auto) 1.52, Nucleated RBC % 0 09/02/20 05:05: Sodium 136, Potassium 3.3 L, Chloride 102, Carbon Dioxide 30.0, Anion Gap 4 L, BUN 13, Creatinine 0.63, Estim Creat Clear Calc 37.01, Est GFR (MDRD) Af Amer 115, Est GFR (MDRD) Non-Af 95, BUN/Creatinine Ratio 20.5 H, Glucose 111 H, Calcium 8.3 L 09/02/20 06:50: COVID-19 (BARBARA) Not Detected Current Medications Acetaminophen (Acetaminophen 325 Mg Tablet) 650 mg PO Q6H PRN PRN PRN Reason: Pain Score 1-10/Temp > 100.7 F Albuterol Sulfate (Albuterol 2.5 Mg/3 Ml Vial.Neb.) 2.5 mg INHALATION Q2H PRN PRN PRN Reason: SOB/Wheezing Apixaban (Apixaban 2.5 Mg Tablet) 2.5 mg PO BID [facility] Last Admin: 09/02/20 05:43 Dose: 2.5 mg Documented by: Atorvastatin Calcium (Atorvastatin Calcium 40 Mg Tablet) 40 mg PO QHS [facility] Last Admin: 09/01/20 20:49 Dose: 40 mg Documented by: Bisacodyl (Bisacodyl 5 Mg Tablet) 10 mg PO DAILY PRN PRN Reason: Constipation Calamine/Phenol (Menthol/Lanolin/Calamine/Znox 113 Gm Tube) 1 applic TOPICAL BID [facility]; Protocol Last Admin: 09/02/20 05:43 Dose: 1 applic Documented by: Calcium/Vitamin D (Calcium Carb/Vitamin D 1 Tablet Tablet) [facility] Last Admin: 09/02/20 09:16 Dose: 1 tablet Documented by: Cholecalciferol (Cholecalciferol (Vit D3) 25 Mcg Tablet (1,000 Units)) [facility] Last Admin: 09/02/20 09:16 Dose: 75 mcg Documented by: Furosemide (Furosemide 40 Mg Tablet) 40 mg PO DAILY [facility] Last Admin: 09/02/20 05:43 Dose: 40 mg Documented by: Levothyroxine Sodium (Levothyroxine 50 Mcg Tablet) 50 mcg PO [id number] [facility] Last Admin: 09/02/20 05:43 Dose: 50 mcg Documented by: Melatonin (Melatonin 3 Mg Tablet) 3 mg PO QHS PRN PRN PRN Reason: INSOMNIA Metoprolol Tartrate (Metoprolol Tartrate 50 Mg Tablet) 50 mg PO BID [facility] Last Admin: 09/02/20 05:43 Dose: 50 mg Documented by: Multivitamins (Multivitamins,Therapeutic Tablet) 1 tablet PO DAILYCM [facility] Last Admin: 09/02/20 09:16 Dose: 1 tablet Documented by: Nutritional Formula (Lactose Free) (Ensure Enlive 120 Ml Liquid) 120 ml PO 4X/DAY [facility] Zrgil-1-Itec Ethyl Esters ([place]-3 Acid Ethyl Esters 1 Gm Capsule) [facility] Last Admin: 09/02/20 09:18 Dose: 1 gm Documented by: Oxycodone HCl (Oxycodone 5 Mg Tablet) 5 mg PO Q4H PRN PRN PRN Reason: Pain Score 6-10 Last Admin: 09/01/20 20:49 Dose: 5 mg Documented by: Pantoprazole Sodium (Pantoprazole Sodium 20 Mg Tablet) 20 mg PO DAILY [facility] Last Admin: 09/02/20 05:43 Dose: 20 mg Documented by: Paroxetine HCl (Paroxetine 10 Mg Tablet) 10 mg PO DAILY [facility] Last Admin: 09/02/20 05:43 Dose: 10 mg Documented by: Risperidone (Risperidone 0.25 Mg Tablet) 0.25 mg PO BID [facility] Last Admin: 09/02/20 05:43 Dose: 0.25 mg Documented by: Senna/Docusate Sodium (Senna/Docusate Sodium 1 Tablet) 2 tablet PO BID PRN PRN PRN Reason: Constipation Triamcinolone Acetonide (Triamcinolone 0.5% Cream) 1 applic TOPICAL BID PRN; Protocol PRN Reason: ITCHING Tuberculin PPD (Tuberculin,Purif.Prot.Deriv. 50 Tu/Ml Vial) 5 tu ID X1 ONE Stop: 09/09/20 10:01 Assessment/Plan All Active Problems (Last Reviewed 09/04/20 @ 17:[address] Anuja Stewart, DO) Forehead contusion (Acute) Left rib fracture (Acute) Skin tear of left upper extremity (Acute) Cough (Acute) Biliary calculus (Resolved) Biliary colic (Resolved) Dyspnea on exertion (Resolved) Fatigue (Resolved) Hypokalemia (Resolved) Near syncope (Resolved) Nonsustained ventricular tachycardia (Resolved) Impressions 1. frequent falls due to LOB and gait instability..... likely related to previous cerebellar stroke 2. forehead contusion due to fall - resolving. 3. Left rib fracture 4. skin tear LUE 5. Debility due to above 6. ? hallucinations 7. benzodiazepine use? she is prescribed this but, the tox screen was negative in the ED. Her family gives her her medications to take but, they do not watch her take them. 8. HTN 9. HLD 10. Hx of ischemic CVA in the left cerebellum in 2018 11. Biatrial enlargement, +1 MR, +2 TR, very mild pulmonary hypertension with a right ventricular systolic pressure estimated in August 2020 to be 31. 12. Moderate aortic stenosis 13. Hypokalemia 14. mildly increased TSH at 4.06 with a normal free T4 at 1.2. 15. Suspected dementia-possibly Lewy body dementia since the family states she hallucinates. PLAN PT for gait stability OT for ADL's ST for evaluation Analgesics as needed Bowel protocol Fall precautions Assess for Anxiety/Depression GI prophylaxis with pantoprazole 20 mg p.o. daily DVT prophylaxis not necessary-patient is on Eliquis for atrial fibrillation Follow up with PCP and Dr. Whitlock following DC from [facility] I recommended Denae be referred to a gerontologist specializing in the treatment of dementia post DC. The grandson and his are not able to provide 24/7 supervision and I recommended they consider a memory unit at [place]. They will discuss with EDISON Muñoz at Monday's meeting. Continue the Risperdal. No benzo's. Potassium was supplemented and will recheck in a few days. At some point with the frequent falls will need to consider the risks of continued anticoagulation vs the benefits Inpatient E&M: [id number] Init Hosp L2
[2020-09-02 15:12] VITALS: BP 130/71; PULSE 71; RESP 20; TEMP 36.2; O2SAT 96
--- NOTE | 2020-09-02 16:18 | CASEMGMT ---
Social Work Met with patient for initial assessment. Discussed code status. Pt confirmed full code. MOLST form reviewed, communication to , placed in chart. Explained [facility] insurance with [employer] 09/07 and continued is not guaranteed. Pt's goal is to return home with grandson and his GF assisting her. Inquired about alternative DC plan if she would DC to [facility] with dtr. Pt stated if she had to go somewhere, that's where she would go, but she would not qualify nor want to apply for Medicaid. She stated she has long-term care insurance policy that allows for 5 years of LTC but she wants to save that until she really needs it. Explained SW will assist with DC plans and explain IDTs recommendations closer to that time. Pt expressed understanding. SW to continue to follow. Wanda Noriega, JAY GARZAW
[2020-09-02 17:46] VITALS: PULSE 71
[2020-09-02] MEDS: Potassium Chloride Oral Tablet 20 MEQ PO ×2 (18:36→21:07)
[2020-09-02] MEDS: Atorvastatin Calcium 40 MG Tablet PO (21:07)
[2020-09-02] MEDS: oxyCODONE 5 MG Tablet PO (21:09)
[2020-09-02 23:21] VITALS: PULSE 77; RESP 16; O2SAT 93
[2020-09-03 05:00] VITALS: BP 153/88; PULSE 76; RESP 16; TEMP 36.8; O2SAT 96
[2020-09-03 05:12] VITALS: BP 153/88; PULSE 76
[2020-09-03] MEDS: APIXABAN 2.5 MG TABLET PO ×2 (05:12→18:30)
[2020-09-03] MEDS: Metoprolol Tartrate 50 MG Tablet PO ×2 (05:12→18:31)
[2020-09-03] MEDS: RisperiDONE 0.25 MG Tablet PO ×2 (05:12→18:32)
[2020-09-03] MEDS: Levothyroxine 50 MCG Tablet PO (05:12)
[2020-09-03] MEDS: Pantoprazole Sodium 20 MG Tablet PO (05:12)
[2020-09-03] MEDS: PARoxetine 10 MG Tablet PO (05:12)
[2020-09-03] MEDS: Furosemide 40 MG Tablet PO (05:12)
[2020-09-03] MEDS: Menthol/Lanolin/Calamine/Znox 113 GM Tube 1 APPLIC TOPICAL ×2 (05:14→18:30)
[2020-09-03] MEDS: Omega-3 Acid Ethyl Esters 1 GM Capsule PO ×2 (08:00→18:30)
[2020-09-03] MEDS: Calcium Carb/Vitamin D 1 TABLET Tablet PO (08:00)
[2020-09-03] MEDS: Multivitamins,Therapeutic Tablet 1 TABLET PO (08:00)
[2020-09-03] MEDS: Cholecalciferol (VIT D3) 25 MCG TABLET (1,000 UNITS) 75 MCG PO (08:01)
[2020-09-03] MEDS: oxyCODONE 5 MG Tablet PO (08:03)
[2020-09-03 09:40] VITALS: PULSE 71; RESP 18; O2SAT 93
--- NOTE | 2020-09-03 09:51 | NURSING ---
DURING ASSESSMENT PT HAS POST LOWER RIGHT CRACKLES, REDNESS/RASH UNDER RIGHT BREAST. HEELS PINK,PROPPED UP ON PILLOW.. RN AWARE AND N.O FOR NYSTATIN/POWDER AND I.S .
[2020-09-03 14:00] VITALS: BP 114/62; PULSE 58; TEMP 36.5; O2SAT 98
--- NOTE | 2020-09-03 16:05 | NURSING ---
FAMILY UPDATED AT VISIT
[2020-09-03 18:31] VITALS: BP 114/62; PULSE 58
[2020-09-03] MEDS: Senna/Docusate Sodium 1 Tablet 2 TABLET PO (18:32)
[2020-09-03] MEDS: Nystatin Powder 15gm Bottle 1 APPLIC TOPICAL (18:32)
[2020-09-03] MEDS: Triamcinolone 0.5% Cream 1 APPLIC TOPICAL (18:33)
--- NOTE | 2020-09-03 19:38 | NURSING ---
PT HAS A HAIR APPOINTMENT Monday09/07/20 AT 2PM. GRANDSON WILL BRING THE MONEY IN.
[2020-09-03] MEDS: Atorvastatin Calcium 40 MG Tablet PO (20:10)
[2020-09-03] MEDS: Acetaminophen 325 MG Tablet 650 MG PO (22:11)
[2020-09-04 05:00] VITALS: BP 124/72; PULSE 60; RESP 18; TEMP 36.6; O2SAT 90
[2020-09-04 05:32] VITALS: BP 124/72; PULSE 60
[2020-09-04] MEDS: Menthol/Lanolin/Calamine/Znox 113 GM Tube 1 APPLIC TOPICAL ×2 (05:32→16:58)
[2020-09-04] MEDS: Metoprolol Tartrate 50 MG Tablet PO ×2 (05:32→16:59)
[2020-09-04] MEDS: PARoxetine 10 MG Tablet PO (05:32)
[2020-09-04] MEDS: RisperiDONE 0.25 MG Tablet PO ×2 (05:32→16:59)
[2020-09-04] MEDS: Furosemide 40 MG Tablet PO (05:33)
[2020-09-04] MEDS: Pantoprazole Sodium 20 MG Tablet PO (05:33)
[2020-09-04] MEDS: Nystatin Powder 15gm Bottle 1 APPLIC TOPICAL ×2 (05:33→16:59)
[2020-09-04] MEDS: Levothyroxine 50 MCG Tablet PO (05:33)
[2020-09-04] MEDS: Senna/Docusate Sodium 1 Tablet 2 TABLET PO ×2 (05:33→16:59)
[2020-09-04] MEDS: APIXABAN 2.5 MG TABLET PO ×2 (05:33→16:59)
[2020-09-04] MEDS: Omega-3 Acid Ethyl Esters 1 GM Capsule PO ×2 (08:15→16:53)
[2020-09-04] MEDS: Multivitamins,Therapeutic Tablet 1 TABLET PO (08:15)
[2020-09-04] MEDS: Cholecalciferol (VIT D3) 25 MCG TABLET (1,000 UNITS) 75 MCG PO (08:15)
[2020-09-04] MEDS: Calcium Carb/Vitamin D 1 TABLET Tablet PO (08:15)
[2020-09-04] MEDS: oxyCODONE 5 MG Tablet PO (09:36)
[2020-09-04 14:17] VITALS: BP 126/58; PULSE 66; RESP 17; TEMP 36.7; O2SAT 93
--- NOTE | 2020-09-04 16:36 | CASEMGMT ---
Social Work Met with patient, grandson and GF. Miguel inquired about alternative DC options and payment, specifically looking into [facility] memory care unit. Answered questions. Explained the difference between AL, SNF and nonskilled HHC. Explained if pt DCs home insurance will cover HHC at AL or home. Answered questions about pt's long-term care insurance policy - pt pays the facility then submits the bill to the policy to get reimbursed. Explained IDT will make recommendations on home vs AL vs SNF. AL will also determine if they can meet the pt's needs. Provided lists of ALs, SNFs and nonskilled HHC agencies and SW contact information. Miguel very appreciative. Will continue to follow. Wanda Noriega MSW GEOSPATIAL PROGRAM MANAGEMENT OFFICER
[2020-09-04 16:59] VITALS: PULSE 66
--- NOTE | 2020-09-04 17:00 | NURSING ---
Miguel brought in $40.00 for pt in a sealed envelope, locked in lock box, for hair appointment
[2020-09-04] MEDS: Atorvastatin Calcium 40 MG Tablet PO (20:29)
[2020-09-05] MEDS: Acetaminophen 325 MG Tablet 650 MG PO ×2 (03:33→21:22)
[2020-09-05 03:35] VITALS: BP 175/78; PULSE 74
[2020-09-05] MEDS: Metoprolol Tartrate 50 MG Tablet PO ×2 (03:35→16:58)
[2020-09-05 03:39] VITALS: BP 175/78; PULSE 74; RESP 18; TEMP 36.4; O2SAT 97
[2020-09-05] MEDS: Senna/Docusate Sodium 1 Tablet 2 TABLET PO ×2 (06:12→16:59)
[2020-09-05] MEDS: RisperiDONE 0.25 MG Tablet PO ×2 (06:12→16:59)
[2020-09-05] MEDS: Levothyroxine 50 MCG Tablet PO (06:12)
[2020-09-05] MEDS: PARoxetine 10 MG Tablet PO (06:12)
[2020-09-05] MEDS: APIXABAN 2.5 MG TABLET PO ×2 (06:13→16:57)
[2020-09-05] MEDS: Pantoprazole Sodium 20 MG Tablet PO (06:13)
[2020-09-05] MEDS: Furosemide 40 MG Tablet PO (06:14)
[2020-09-05] MEDS: Menthol/Lanolin/Calamine/Znox 113 GM Tube 1 APPLIC TOPICAL ×2 (06:16→16:57)
[2020-09-05] MEDS: Nystatin Powder 15gm Bottle 1 APPLIC TOPICAL ×2 (06:16→21:19)
[2020-09-05 07:13] LABS: Anion Gap 4 (5-15); BUN 15 mg/dL (7-18); BUN/Creat Ratio 20.5 RATIO (10-20); Calcium,Total 8.7 mg/dL (8.5-10.1); Chloride 103 mmol/L (98-107); Creatinine, Serum 0.73 mg/dL (0.55-1.02); EST Glomerular Filtration Rate 80 mL/min (>60); Est Glom Filt Rate - Afr Amer 97 mL/min (>60); Estimated Creatinine Clearance 37.01 ml/min; Glucose 101 mg/dL (74-106); Magnesium 2.2 mg/dL (1.6-2.6); Potassium 4.3 mmol/L (3.5-5.1); Sodium Level 136 mmol/L (136-145)
[2020-09-05] MEDS: Multivitamins,Therapeutic Tablet 1 TABLET PO (09:10)
[2020-09-05] MEDS: Calcium Carb/Vitamin D 1 TABLET Tablet PO (09:10)
[2020-09-05] MEDS: Omega-3 Acid Ethyl Esters 1 GM Capsule PO ×2 (09:10→16:57)
[2020-09-05] MEDS: Cholecalciferol (VIT D3) 25 MCG TABLET (1,000 UNITS) 75 MCG PO (09:11)
[2020-09-05 10:15] VITALS: PULSE 82; RESP 18; O2SAT 94
--- NOTE | 2020-09-05 12:52 | NURSING ---
family updated at visit
[2020-09-05 15:48] VITALS: BP 105/62; PULSE 80; RESP 17; TEMP 37; O2SAT 94
[2020-09-05 16:58] VITALS: BP 105/62; PULSE 80
[2020-09-05] MEDS: Atorvastatin Calcium 40 MG Tablet PO (21:20)
[2020-09-06 04:33] VITALS: BP 127/63; PULSE 66; RESP 18; TEMP 36.6; O2SAT 92
[2020-09-06] MEDS: Acetaminophen 325 MG Tablet 650 MG PO (04:35)
[2020-09-06 04:36] VITALS: BP 127/63; PULSE 66
[2020-09-06] MEDS: Nystatin Powder 15gm Bottle 1 APPLIC TOPICAL ×2 (04:36→21:26)
[2020-09-06] MEDS: RisperiDONE 0.25 MG Tablet PO ×2 (04:36→17:15)
[2020-09-06] MEDS: APIXABAN 2.5 MG TABLET PO ×2 (04:36→17:14)
[2020-09-06] MEDS: Furosemide 40 MG Tablet PO (04:36)
[2020-09-06] MEDS: PARoxetine 10 MG Tablet PO (04:36)
[2020-09-06] MEDS: Senna/Docusate Sodium 1 Tablet 2 TABLET PO ×2 (04:36→17:15)
[2020-09-06] MEDS: Metoprolol Tartrate 50 MG Tablet PO ×2 (04:36→17:15)
[2020-09-06] MEDS: Menthol/Lanolin/Calamine/Znox 113 GM Tube 1 APPLIC TOPICAL ×2 (04:37→17:13)
[2020-09-06] MEDS: Pantoprazole Sodium 20 MG Tablet PO (04:39)
[2020-09-06] MEDS: Multivitamins,Therapeutic Tablet 1 TABLET PO (07:54)
[2020-09-06] MEDS: Cholecalciferol (VIT D3) 25 MCG TABLET (1,000 UNITS) 75 MCG PO (07:54)
[2020-09-06] MEDS: Calcium Carb/Vitamin D 1 TABLET Tablet PO (07:54)
[2020-09-06] MEDS: Omega-3 Acid Ethyl Esters 1 GM Capsule PO ×2 (07:54→17:14)
[2020-09-06] MEDS: oxyCODONE 5 MG Tablet PO (12:46)
[2020-09-06 15:41] VITALS: BP 134/61; PULSE 64; RESP 16; TEMP 36.7; O2SAT 93
[2020-09-06 17:15] VITALS: BP 134/61; PULSE 64
[2020-09-06] MEDS: Atorvastatin Calcium 40 MG Tablet PO (21:27)
[2020-09-07] MEDS: Acetaminophen 325 MG Tablet 650 MG PO (01:47)
[2020-09-07 05:00] VITALS: BP 145/73; PULSE 61; RESP 18; TEMP 36.4; O2SAT 91
[2020-09-07 06:50] VITALS: BP 145/73; PULSE 61
[2020-09-07] MEDS: Metoprolol Tartrate 50 MG Tablet PO ×2 (06:50→17:38)
[2020-09-07] MEDS: Pantoprazole Sodium 20 MG Tablet PO (06:50)
[2020-09-07] MEDS: Senna/Docusate Sodium 1 Tablet 2 TABLET PO (06:50)
[2020-09-07] MEDS: APIXABAN 2.5 MG TABLET PO ×2 (06:50→17:37)
[2020-09-07] MEDS: PARoxetine 10 MG Tablet PO (06:50)
[2020-09-07] MEDS: Menthol/Lanolin/Calamine/Znox 113 GM Tube 1 APPLIC TOPICAL ×2 (06:50→17:39)
[2020-09-07] MEDS: Furosemide 40 MG Tablet PO (06:50)
[2020-09-07] MEDS: Nystatin Powder 15gm Bottle 1 APPLIC TOPICAL ×2 (06:50→17:39)
[2020-09-07] MEDS: RisperiDONE 0.25 MG Tablet PO ×2 (06:50→17:38)
[2020-09-07] MEDS: Levothyroxine 50 MCG Tablet PO (06:51)
[2020-09-07] MEDS: Omega-3 Acid Ethyl Esters 1 GM Capsule PO ×2 (08:39→17:37)
[2020-09-07] MEDS: Calcium Carb/Vitamin D 1 TABLET Tablet PO (08:40)
[2020-09-07] MEDS: Multivitamins,Therapeutic Tablet 1 TABLET PO (08:40)
[2020-09-07] MEDS: Cholecalciferol (VIT D3) 25 MCG TABLET (1,000 UNITS) 75 MCG PO (08:40)
--- NOTE | 2020-09-07 10:24 | PCM.PN.RX ---
Progress Note - Pharmacy Subjective: TCU Admission Objective: Allergies aspirin Allergy (Verified 08/19/20 22:52) Hives tetanus immune globulin Allergy (Verified 08/19/20 22:52) Rash sulfamethoxazole [From Bactrim] Adverse Reaction (Verified 08/19/20 23:21) Rash trimethoprim [From Bactrim] Adverse Reaction (Verified 08/19/20 23:21) Rash Current Medications Generic Name Dose Route Start Last Admin Trade Name Freq PRN Reason Stop Dose Admin Acetaminophen 650 mg 09/01/20 20:17 09/07/20 01:47 Acetaminophen 325 Mg Tablet PO 650 mg Q6H PRN PRN Administration Pain Score 1-10/Temp > 100.7 F Albuterol Sulfate 2.5 mg 09/01/20 20:17 Albuterol 2.5 Mg/3 Ml Vial.Neb. INHALATION Q2H PRN PRN SOB/Wheezing Apixaban 2.5 mg 09/02/20 06:00 09/07/20 06:50 Apixaban 2.5 Mg Tablet PO 2.5 mg BID GEE Administration Atorvastatin Calcium 40 mg 09/01/20 22:00 09/06/20 21:27 Atorvastatin Calcium 40 Mg Tablet PO 40 mg QHS GEE Administration Bisacodyl 10 mg 09/01/20 20:24 Bisacodyl 5 Mg Tablet PO DAILY PRN Constipation Calamine/Phenol 1 applic 09/01/20 22:00 09/07/20 06:50 Menthol/Lanolin/Calamine/Znox 113 Gm Tube TOPICAL 1 applic BID GEE Administration Protocol Calcium/Vitamin D 1 tablet 09/02/20 08:00 09/07/20 08:40 Calcium Carb/Vitamin D 1 Tablet Tablet PO 1 tablet DAILYCM GEE Administration Cholecalciferol 75 mcg 09/02/20 08:00 09/07/20 08:40 Cholecalciferol (Vit D3) 25 Mcg Tablet (1,000 Units) PO 75 mcg DAILYCM GEE Administration Furosemide 40 mg 09/02/20 06:00 09/07/20 06:50 Furosemide 40 Mg Tablet PO 40 mg DAILY GEE Administration Levothyroxine Sodium 50 mcg 09/02/20 06:00 09/07/20 06:51 Levothyroxine 50 Mcg Tablet PO 50 mcg [id number] GEE Administration Melatonin 3 mg 09/01/20 20:17 Melatonin 3 Mg Tablet PO QHS PRN PRN INSOMNIA Metoprolol Tartrate 50 mg 09/02/20 06:00 09/07/20 06:50 Metoprolol Tartrate 50 Mg Tablet PO 50 mg BID EGE Administration Multivitamins 1 tablet 09/02/20 08:00 09/07/20 08:40 Multivitamins,Therapeutic Tablet PO 1 tablet DAILYCM GEE Administration Nutritional Formula (Lactose Free) 120 ml 09/02/20 17:00 09/07/20 06:50 Ensure Enlive 120 Ml Liquid PO Not Given 4X/DAY GEE Nystatin 1 applic 09/03/20 18:00 09/07/20 06:50 Nystatin Powder 15gm Bottle TOPICAL 1 applic BID GEE Administration Protocol [id number] Ethyl Esters 1 gm 09/02/20 08:00 09/07/20 08:39 Franklin-3 Acid Ethyl Esters 1 Gm Capsule PO 1 gm BIDCM GEE Administration Oxycodone HCl 5 mg 09/01/20 20:17 09/06/20 12:46 Oxycodone 5 Mg Tablet PO 5 mg Q4H PRN PRN Administration Pain Score 6-10 Pantoprazole Sodium 20 mg 09/02/20 06:00 09/07/20 06:50 Pantoprazole Sodium 20 Mg Tablet PO 20 mg DAILY GEE Administration Paroxetine HCl 10 mg 09/02/20 06:00 09/07/20 06:50 Paroxetine 10 Mg Tablet PO 10 mg DAILY GEE Administration Risperidone 0.25 mg 09/02/20 06:00 09/07/20 06:50 Risperidone 0.25 Mg Tablet PO 0.25 mg BID GEE Administration Senna/Docusate Sodium 2 tablet 09/03/20 18:00 09/07/20 06:50 Senna/Docusate Sodium 1 Tablet PO 2 tablet BID GEE Administration Triamcinolone Acetonide 1 applic 09/01/20 20:17 09/03/20 18:33 Triamcinolone 0.5% Cream TOPICAL 1 applic BID PRN Administration ITCHING Protocol Tuberculin PPD 5 tu 09/09/20 10:00 Tuberculin,Purif.Prot.Deriv. 50 Tu/Ml Vial ID 09/09/20 10:01 X1 ONE Problem List (Last Reviewed 09/04/20 @ 17:[address] Anuja Stewart, DO) Dizziness (Chronic) Forehead contusion (Acute) Left rib fracture (Acute) Skin tear of left upper extremity (Acute) Hallucinations (Chronic) Falls frequently (Chronic) PAF (paroxysmal atrial fibrillation) (Chronic) Cough (Acute) Non-rheumatic aortic stenosis (Chronic) Essential (primary) hypertension (Chronic) Hyperlipidemia (Chronic) Secondary pulmonary arterial hypertension (Chronic) CVA (cerebral vascular accident) (Chronic 11/16/17) Vital Signs Temp Pulse Resp BP Pulse Ox 97.6 F L 61 18 145/73 H 91 09/07/20 05:00 09/07/20 06:50 09/07/20 05:00 09/07/20 06:50 09/07/20 05:00 Oxygen Delivery Method Room Air Weight: 58.258 kg Body Mass Index (BMI) 21.3 Sodium 136 mmol/L (136-145) 09/05/20 06:10 Potassium 4.3 mmol/L (3.5-5.1) 09/05/20 06:10 Chloride 103 mmol/L (98-107) 09/05/20 06:10 Carbon Dioxide 29.0 mmol/L (21.0-32.0) 09/05/20 06:10 Anion Gap 4 (5-15) L 09/05/20 06:10 BUN 15 mg/dL (7-18) 09/05/20 06:10 Creatinine 0.73 mg/dL (0.55-1.02) 09/05/20 06:10 Est GFR (MDRD) Af Amer 97 mL/min (>60) 09/05/20 06:10 Est GFR (MDRD) Non-Af 80 mL/min (>60) 09/05/20 06:10 BUN/Creatinine Ratio 20.5 RATIO (10-20) H 09/05/20 06:10 Glucose 101 mg/dL (74-106) 09/05/20 06:10 Assessment/Plan: 1. Pain: acetaminophen 650mg PO Q6H PRN pain 1-10/10 and oxycodone 5mg PO Q4H PRN pain 6-10/10. Please continue to monitor for increased pain, PRN usage, constipation and respiratory depression. 2. Atrial fibrillation/hypertension: apixaban 2.5mg PO BID, metoprolol tartrate 50mg PO BID, and furosemide 40mg PO daily. Please continue to monitor for S/S of bleeding, hemoglobin (last 14.1g/dL), BP (last 145/73), HR (last 61), potassium (last 4.3mmol/L) and renal function. *3. Hyperlipidemia: atorvastatin 40mg PO QHS and Lovaza 1gm PO BID. Please consider ordering a lipid panel (last from 10/2017) if clinically appropriate. Thanks. Please continue to monitor for muscle pain. 4. GERD (per H&P): pantoprazole 20mg PO daily. Please continue to monitor for diarrhea. 5. Hypothyroidism (per H&P): levothyroxine 50mcg PO daily except for Sundays. Please continue to monitor for S/S of hypo/hyperthyroidism and TSH. Thanks. *6. Vitamin D deficiency/overall nutrition: calcium/vitamin D 1T PO DAILYCM, cholecalciferol 75mcg PO DAILYCM, and multivitamin 1T PO DAILYCM. Patient does not have a vitamin D level in the chart. Please consider ordering one now if clinically appropriate. Thanks. Please continue to monitor calcium (last 8.7mg/dL). 7. Insomnia: melatonin 3mg PO QHS PRN insomnia. Please continue to monitor for insomnia and PRN usage. 8. Shortness of breath: albuterol nebulizer 2.5mg inhalation Q2H PRN SOB/wheezing. Please continue to monitor for SOB, wheezing, and PRN usage. 9. Itching: triamcinolone cream 1 application topically BID PRN itching. Please continue to monitor for itching and PRN usage. Psychotropic Medications: *1. Depression (severe per H&P): paroxetine 10mg PO daily. Please consider GDR by 02/2021 if clinically appropriate. Thanks. Please continue to monitor for GI side effects. Unnecessary Medications: *1. Risperidone 0.25 mg PO BID. I did not see a documented indication for this medication. Please consider adding an indication or gradual discontinuation if clinically appropriate. Thanks. Bowel Regimen: senna/docusate 2T PO BID and bisacodyl 10mg PO daily PRN constipation. Please continue to monitor for constipation and PRN usage. Date of Note:: 09/07/20 - Provider Comments Provider responsibility: Provider responsible to enter orders to implement recommendations
[2020-09-07 14:01] VITALS: BP 136/59; PULSE 66; RESP 16; TEMP 36; O2SAT 96
--- NOTE | 2020-09-07 14:58 | NURSING ---
pt had $40 in med box. $30 removed to pay communications department chair. $10 returned to med box.
--- NOTE | 2020-09-07 16:31 | CHAPLAIN ---
Type of Pastoral Visit _x__ Initial Visit ___ Follow-up Visit ___ On-call Visit ___ General Patient Visit ___ Spiritual Assessment ___ Family Conference ___ Bereavement ___ Rapid Response ___ Code Blue ___ Other (describe below) Pastoral Care Referral From _x__ Patient ___ Family ___ Nurse ___ Physician ___ Carburetor Expert ___ Magazine Keeper ___ Other (describe below) Sacrament/Intervention _x__ Active listening ___ Anointing ___ Adventist ___ Bereavement ___ Communion ___ Geraldine exploration ___ ___ Life review ___ Prayer ___ Reconciliation ___ Sacrament of Sick ___ Supportive presence ___ Wedding ___ Other (describe below) Pastoral Comments follow up to patient that was met in [place]; family members are also visiting today
[2020-09-07 17:38] VITALS: PULSE 66
[2020-09-07] MEDS: Atorvastatin Calcium 40 MG Tablet PO (20:38)
[2020-09-08] MEDS: Acetaminophen 325 MG Tablet 650 MG PO (00:31)
[2020-09-08 05:00] VITALS: BP 110/75; PULSE 71; RESP 16; TEMP 36.4; O2SAT 94
[2020-09-08 05:15] VITALS: BP 110/75; PULSE 71
[2020-09-08] MEDS: APIXABAN 2.5 MG TABLET PO ×2 (05:15→17:13)
[2020-09-08] MEDS: PARoxetine 10 MG Tablet PO (05:15)
[2020-09-08] MEDS: Levothyroxine 50 MCG Tablet PO (05:15)
[2020-09-08] MEDS: RisperiDONE 0.25 MG Tablet PO ×2 (05:15→17:16)
[2020-09-08] MEDS: Metoprolol Tartrate 50 MG Tablet PO ×2 (05:15→17:16)
[2020-09-08] MEDS: Pantoprazole Sodium 20 MG Tablet PO (05:15)
[2020-09-08] MEDS: Furosemide 40 MG Tablet PO (05:15)
[2020-09-08] MEDS: Menthol/Lanolin/Calamine/Znox 113 GM Tube 1 APPLIC TOPICAL ×2 (05:17→17:13)
[2020-09-08] MEDS: Nystatin Powder 15gm Bottle 1 APPLIC TOPICAL ×2 (05:17→17:13)
[2020-09-08] MEDS: Calcium Carb/Vitamin D 1 TABLET Tablet PO (07:57)
[2020-09-08] MEDS: Multivitamins,Therapeutic Tablet 1 TABLET PO (07:57)
[2020-09-08] MEDS: Omega-3 Acid Ethyl Esters 1 GM Capsule PO ×2 (07:57→17:12)
[2020-09-08] MEDS: Cholecalciferol (VIT D3) 25 MCG TABLET (1,000 UNITS) 75 MCG PO (07:58)
[2020-09-08 10:00] VITALS: PULSE 57; RESP 18; O2SAT 95
[2020-09-08] MEDS: oxyCODONE 5 MG Tablet PO (11:06)
[2020-09-08 13:27] VITALS: BP 114/68; PULSE 62; RESP 16; TEMP 36.5; O2SAT 94
[2020-09-08 17:16] VITALS: BP 114/68; PULSE 62
[2020-09-08] MEDS: Senna/Docusate Sodium 1 Tablet 2 TABLET PO (17:17)
[2020-09-08] MEDS: Atorvastatin Calcium 40 MG Tablet PO (21:19)
[2020-09-09] MEDS: Menthol/Lanolin/Calamine/Znox 113 GM Tube 1 APPLIC TOPICAL ×2 (04:42→18:01)
[2020-09-09] MEDS: APIXABAN 2.5 MG TABLET PO ×2 (04:42→18:00)
[2020-09-09 04:43] VITALS: BP 132/79; PULSE 59
[2020-09-09] MEDS: Nystatin Powder 15gm Bottle 1 APPLIC TOPICAL ×2 (04:43→18:01)
[2020-09-09] MEDS: Metoprolol Tartrate 50 MG Tablet PO ×2 (04:43→18:00)
[2020-09-09] MEDS: Furosemide 40 MG Tablet PO (04:43)
[2020-09-09] MEDS: RisperiDONE 0.25 MG Tablet PO ×2 (04:44→18:00)
[2020-09-09] MEDS: Pantoprazole Sodium 20 MG Tablet PO (04:44)
[2020-09-09] MEDS: PARoxetine 10 MG Tablet PO (04:44)
[2020-09-09] MEDS: Levothyroxine 50 MCG Tablet PO (04:45)
[2020-09-09] MEDS: Senna/Docusate Sodium 1 Tablet 2 TABLET PO (04:45)
[2020-09-09 05:00] VITALS: BP 132/79; PULSE 59; RESP 16; TEMP 36.7; O2SAT 94
[2020-09-09 06:02] LABS: Absolute Lymphocyte Count 2.05 X10^3/uL (0.83-4.51); Basophil# 0.06 X10^3/uL; Basophil% 0.8 % (0-1); Eosinophil# 0.42 X10^3/uL; Eosinophils% 5.9 % (0-5); Hematocrit 42.6 % (37-47); Hemoglobin 13.5 g/dL (12.0-15.0); Lymphocyte # 2.05 X10^3/ul (0.83-4.51); Lymphocyte % 28.6 % (19-41); Mean Corp Hgb Conc 31.7 g/dL (32-36); Mean Corpuscular Hgb 29.8 pg (27.0-32.0); Mean Platelet Vol. 11.5 fl (6.2-12.0); Monocyte# 0.66 X10^3/uL; Monocyte% 9.2 % (0-10); NRBC Flagged by Analyzer 0 % (0-5); Neutrophil # 3.95 X10^3/uL (2.7-7.7); Neutrophil % 55.1 % (47-70); Platelet Count 288 K/mm3 (150-450); RBC Distribution Width CV 13.4 % (11.6-14.6); RBC Distribution Width SD 46.3 fl (35.1-43.9); Red Blood Count 4.53 M/mm3 (4.2-5.4); White Blood Count 7.2 K/mm3 (4.4-11.0)
[2020-09-09 06:29] LABS: Anion Gap 7 (5-15); BUN 18 mg/dL (7-18); BUN/Creat Ratio 24.4 RATIO (10-20); Calcium,Total 8.5 mg/dL (8.5-10.1); Chloride 105 mmol/L (98-107); Creatinine, Serum 0.74 mg/dL (0.55-1.02); EST Glomerular Filtration Rate 80 mL/min (>60); Est Glom Filt Rate - Afr Amer 96 mL/min (>60); Estimated Creatinine Clearance 37.01 ml/min; Glucose 110 mg/dL (74-106); Potassium 3.8 mmol/L (3.5-5.1); Sodium Level 140 mmol/L (136-145)
[2020-09-09] MEDS: Calcium Carb/Vitamin D 1 TABLET Tablet PO (08:32)
[2020-09-09] MEDS: Multivitamins,Therapeutic Tablet 1 TABLET PO (08:32)
[2020-09-09] MEDS: Cholecalciferol (VIT D3) 25 MCG TABLET (1,000 UNITS) 75 MCG PO (08:33)
[2020-09-09] MEDS: Acetaminophen 325 MG Tablet 650 MG PO (10:02)
[2020-09-09] MEDS: Omega-3 Acid Ethyl Esters 1 GM Capsule PO ×2 (10:42→17:59)
[2020-09-09] MEDS: Tuberculin,Purif.prot.deriv. 50 TU/ML Vial 5 ML ID (11:38)
--- NOTE | 2020-09-09 11:56 | CASEMGMT ---
Social Work IDT met with patient and grandson for care plan meeting. Discussed patient's progress in therapy and nursing. Pt progressing. Explained [facility] NRD 09/14 and continued stay is not guaranteed. Pt was living at home with grandson prior with no steps to enter. However, pt and grandson interested in AL. [facility] vs [facility]. Pt has long-term care insurance that grandson has researched. Offered to make referrals to both facilities to determine if patient requires memory care or traditional AL. Grandson agreeable. Referrals made. SW to continue to follow. Wanda Noriega, PRE SCHOOL MANAGER FIELD WORKER
[2020-09-09 14:51] VITALS: BP 163/44; PULSE 90; RESP 14; TEMP 37.1; O2SAT 93
--- NOTE | 2020-09-09 15:28 | CHAPLAIN ---
Type of Pastoral Visit ___ Initial Visit _x__ Follow-up Visit ___ On-call Visit ___ General Patient Visit ___ Spiritual Assessment ___ Family Conference ___ Bereavement ___ Rapid Response ___ Code Blue ___ Other (describe below) Pastoral Care Referral From _x__ Patient ___ Family ___ Nurse ___ Physician ___ Parts Driver ___ Senior Information Systems Architect ___ Other (describe below) Sacrament/Intervention _x__ Active listening ___ Anointing ___ Advent ___ Bereavement ___ Communion ___ Geraldine exploration ___ ___ Life review _x__ Prayer ___ Reconciliation ___ Sacrament of Sick _x__ Supportive presence ___ Wedding ___ Other (describe below) Pastoral Comments patient is processing a decision about which AL facility to accept for placement; pt talks through some of the issues about it; pt also acknowledges that prayer is one way to receive direction and requests prayer support
[2020-09-09 18:00] VITALS: PULSE 90
[2020-09-09] MEDS: Atorvastatin Calcium 40 MG Tablet PO (20:50)
[2020-09-09 21:27] VITALS: O2SAT 93
[2020-09-10] MEDS: Acetaminophen 325 MG Tablet 650 MG PO (01:32)
[2020-09-10 05:00] VITALS: BP 131/62; PULSE 77; RESP 18; TEMP 36.6; O2SAT 92
[2020-09-10] MEDS: APIXABAN 2.5 MG TABLET PO ×2 (05:45→17:07)
[2020-09-10] MEDS: RisperiDONE 0.25 MG Tablet PO ×2 (05:45→17:07)
[2020-09-10] MEDS: PARoxetine 10 MG Tablet PO (05:45)
[2020-09-10] MEDS: Pantoprazole Sodium 20 MG Tablet PO (05:45)
[2020-09-10 05:46] VITALS: BP 131/62; PULSE 77
[2020-09-10] MEDS: Metoprolol Tartrate 50 MG Tablet PO ×2 (05:46→17:08)
[2020-09-10] MEDS: Levothyroxine 50 MCG Tablet PO (05:46)
[2020-09-10] MEDS: Furosemide 40 MG Tablet PO (05:46)
[2020-09-10] MEDS: Menthol/Lanolin/Calamine/Znox 113 GM Tube 1 APPLIC TOPICAL ×2 (05:46→17:12)
[2020-09-10] MEDS: Nystatin Powder 15gm Bottle 1 APPLIC TOPICAL ×2 (05:47→17:11)
[2020-09-10] MEDS: Cholecalciferol (VIT D3) 25 MCG TABLET (1,000 UNITS) 75 MCG PO (08:31)
[2020-09-10] MEDS: Multivitamins,Therapeutic Tablet 1 TABLET PO (08:31)
[2020-09-10] MEDS: Calcium Carb/Vitamin D 1 TABLET Tablet PO (08:32)
[2020-09-10] MEDS: Omega-3 Acid Ethyl Esters 1 GM Capsule PO ×2 (08:32→17:07)
[2020-09-10 13:21] VITALS: BP 98/57; PULSE 59; RESP 16; TEMP 36.4; O2SAT 95
[2020-09-10] MEDS: Senna/Docusate Sodium 1 Tablet 2 TABLET PO (17:07)
[2020-09-10 17:08] VITALS: BP 140/71; PULSE 73
[2020-09-10] MEDS: Atorvastatin Calcium 40 MG Tablet PO (20:40)
[2020-09-11] MEDS: Acetaminophen 325 MG Tablet 650 MG PO ×2 (00:39→11:34)
[2020-09-11] MEDS: APIXABAN 2.5 MG TABLET PO ×2 (07:04→18:13)
[2020-09-11] MEDS: Furosemide 40 MG Tablet PO (07:04)
[2020-09-11] MEDS: Menthol/Lanolin/Calamine/Znox 113 GM Tube 1 APPLIC TOPICAL ×2 (07:04→18:12)
[2020-09-11] MEDS: RisperiDONE 0.25 MG Tablet PO ×2 (07:05→18:14)
[2020-09-11] MEDS: PARoxetine 10 MG Tablet PO (07:05)
[2020-09-11] MEDS: Levothyroxine 50 MCG Tablet PO (07:05)
[2020-09-11] MEDS: Pantoprazole Sodium 20 MG Tablet PO (07:06)
[2020-09-11] MEDS: Nystatin Powder 15gm Bottle 1 APPLIC TOPICAL ×2 (07:06→18:13)
[2020-09-11 07:07] VITALS: PULSE 68
[2020-09-11] MEDS: Metoprolol Tartrate 50 MG Tablet PO ×2 (07:07→18:17)
[2020-09-11] MEDS: Senna/Docusate Sodium 1 Tablet 2 TABLET PO ×2 (07:09→18:14)
[2020-09-11] MEDS: Cholecalciferol (VIT D3) 25 MCG TABLET (1,000 UNITS) 75 MCG PO (08:35)
[2020-09-11] MEDS: Calcium Carb/Vitamin D 1 TABLET Tablet PO (08:35)
[2020-09-11] MEDS: Multivitamins,Therapeutic Tablet 1 TABLET PO (08:35)
[2020-09-11] MEDS: Omega-3 Acid Ethyl Esters 1 GM Capsule PO ×2 (08:35→18:12)
--- NOTE | 2020-09-11 10:24 | MDS.RN ---
Information for the mds was obtained from review of the clinical record, interview of resident, staff, and direct observation of resident's care.
[2020-09-11 14:13] VITALS: BP 98/60; PULSE 57; RESP 12; TEMP 37; O2SAT 94
[2020-09-11 18:17] VITALS: BP 127/67; PULSE 78
[2020-09-11 18:18] VITALS: BP 127/67; PULSE 78
[2020-09-11] MEDS: Atorvastatin Calcium 40 MG Tablet PO (20:01)
[2020-09-12] MEDS: Acetaminophen 325 MG Tablet 650 MG PO ×2 (00:07→09:30)
[2020-09-12 05:00] VITALS: BP 137/75; PULSE 68; RESP 18; TEMP 36.7; O2SAT 92
[2020-09-12 05:39] VITALS: BP 137/75; PULSE 68
[2020-09-12] MEDS: RisperiDONE 0.25 MG Tablet PO ×2 (05:39→17:08)
[2020-09-12] MEDS: Metoprolol Tartrate 50 MG Tablet PO ×2 (05:39→17:07)
[2020-09-12] MEDS: Senna/Docusate Sodium 1 Tablet 2 TABLET PO (05:39)
[2020-09-12] MEDS: Furosemide 40 MG Tablet PO (05:39)
[2020-09-12] MEDS: Levothyroxine 50 MCG Tablet PO (05:39)
[2020-09-12] MEDS: PARoxetine 10 MG Tablet PO (05:39)
[2020-09-12] MEDS: Pantoprazole Sodium 20 MG Tablet PO (05:39)
[2020-09-12] MEDS: Nystatin Powder 15gm Bottle 1 APPLIC TOPICAL ×2 (05:40→17:09)
[2020-09-12] MEDS: Menthol/Lanolin/Calamine/Znox 113 GM Tube 1 APPLIC TOPICAL ×2 (05:40→17:09)
[2020-09-12] MEDS: APIXABAN 2.5 MG TABLET PO ×2 (05:40→17:08)
[2020-09-12] MEDS: Omega-3 Acid Ethyl Esters 1 GM Capsule PO ×2 (09:27→17:08)
[2020-09-12] MEDS: Cholecalciferol (VIT D3) 25 MCG TABLET (1,000 UNITS) 75 MCG PO (09:27)
[2020-09-12] MEDS: Calcium Carb/Vitamin D 1 TABLET Tablet PO (09:27)
[2020-09-12] MEDS: Multivitamins,Therapeutic Tablet 1 TABLET PO (09:28)
[2020-09-12 13:47] VITALS: BP 100/61; PULSE 60; RESP 16; TEMP 36.7; O2SAT 92
[2020-09-12 17:07] VITALS: BP 150/68; PULSE 60
[2020-09-12] MEDS: Atorvastatin Calcium 40 MG Tablet PO (20:00)
[2020-09-13] MEDS: Acetaminophen 325 MG Tablet 650 MG PO ×2 (01:32→08:03)
[2020-09-13 05:00] VITALS: BP 103/53; PULSE 60; RESP 16; TEMP 36.7; O2SAT 92
[2020-09-13 05:06] VITALS: BP 103/53; PULSE 60
[2020-09-13] MEDS: APIXABAN 2.5 MG TABLET PO ×2 (05:06→17:58)
[2020-09-13] MEDS: RisperiDONE 0.25 MG Tablet PO ×2 (05:06→17:58)
[2020-09-13] MEDS: Pantoprazole Sodium 20 MG Tablet PO (05:06)
[2020-09-13] MEDS: PARoxetine 10 MG Tablet PO (05:06)
[2020-09-13] MEDS: Senna/Docusate Sodium 1 Tablet 2 TABLET PO ×2 (05:06→17:59)
[2020-09-13] MEDS: Metoprolol Tartrate 50 MG Tablet PO ×2 (05:06→17:58)
[2020-09-13] MEDS: Furosemide 40 MG Tablet PO (05:06)
[2020-09-13] MEDS: Menthol/Lanolin/Calamine/Znox 113 GM Tube 1 APPLIC TOPICAL ×2 (05:08→17:59)
[2020-09-13] MEDS: Nystatin Powder 15gm Bottle 1 APPLIC TOPICAL ×2 (05:08→18:01)
[2020-09-13] MEDS: Calcium Carb/Vitamin D 1 TABLET Tablet PO (07:42)
[2020-09-13] MEDS: Omega-3 Acid Ethyl Esters 1 GM Capsule PO ×2 (07:42→17:58)
[2020-09-13] MEDS: Multivitamins,Therapeutic Tablet 1 TABLET PO (07:42)
[2020-09-13] MEDS: Cholecalciferol (VIT D3) 25 MCG TABLET (1,000 UNITS) 75 MCG PO (07:42)
[2020-09-13] MEDS: oxyCODONE 5 MG Tablet PO (13:12)
[2020-09-13 14:19] VITALS: BP 97/58; PULSE 71; RESP 16; TEMP 36.5; O2SAT 92
[2020-09-13 17:58] VITALS: PULSE 71
[2020-09-13] MEDS: Atorvastatin Calcium 40 MG Tablet PO (20:00)
[2020-09-13 20:06] VITALS: PULSE 60; RESP 16; O2SAT 93
[2020-09-14] MEDS: Acetaminophen 325 MG Tablet 650 MG PO ×2 (01:34→11:03)
[2020-09-14 05:00] VITALS: BP 136/85; PULSE 60; RESP 16; TEMP 36.2; O2SAT 93
[2020-09-14] MEDS: Furosemide 40 MG Tablet PO (05:18)
[2020-09-14] MEDS: Pantoprazole Sodium 20 MG Tablet PO (05:18)
[2020-09-14] MEDS: Senna/Docusate Sodium 1 Tablet 2 TABLET PO (05:18)
[2020-09-14] MEDS: RisperiDONE 0.25 MG Tablet PO ×2 (05:18→17:13)
[2020-09-14 05:19] VITALS: BP 136/85; PULSE 60
[2020-09-14] MEDS: Menthol/Lanolin/Calamine/Znox 113 GM Tube 1 APPLIC TOPICAL ×2 (05:19→17:12)
[2020-09-14] MEDS: APIXABAN 2.5 MG TABLET PO ×2 (05:19→17:12)
[2020-09-14] MEDS: Metoprolol Tartrate 50 MG Tablet PO ×2 (05:19→17:12)
[2020-09-14] MEDS: PARoxetine 10 MG Tablet PO (05:19)
[2020-09-14] MEDS: Levothyroxine 50 MCG Tablet PO (05:20)
[2020-09-14] MEDS: Nystatin Powder 15gm Bottle 1 APPLIC TOPICAL ×2 (05:21→17:14)
[2020-09-14] MEDS: Omega-3 Acid Ethyl Esters 1 GM Capsule PO ×2 (08:13→17:12)
[2020-09-14] MEDS: Calcium Carb/Vitamin D 1 TABLET Tablet PO (08:13)
[2020-09-14] MEDS: Multivitamins,Therapeutic Tablet 1 TABLET PO (08:13)
[2020-09-14] MEDS: Cholecalciferol (VIT D3) 25 MCG TABLET (1,000 UNITS) 75 MCG PO (08:14)
[2020-09-14 14:40] VITALS: PULSE 70; RESP 18; O2SAT 95
[2020-09-14 14:57] VITALS: BP 110/59; PULSE 69; RESP 18; TEMP 36.4; O2SAT 96
--- NOTE | 2020-09-14 16:27 | CASEMGMT ---
Social Work Assisted pt in answering questions for [facility] and [facility]. Facilitated conversations between both admissions coordinators. Assisted in completed [facility] application. Provided update that insurance approved with NRD 09/17 and likely to issue DC date. Will continue to follow. Wanda Noriega, PIPE TESTER EXTRUSION PRESS ADJUSTER
--- NOTE | 2020-09-14 16:29 | NURSING ---
THIS NURSE NOTICED RED BALLESTEROS ON PT MIDDLE TO LOWER BACK. ASKED PT WHAT HAPPENED PT STATED I HAVE BEEN SCRATCHING. WASHED PT BACK AND APPLIED LOTION. PT STATED SHE FELT BETTER. RN AWARE
[2020-09-14 17:12] VITALS: BP 110/59; PULSE 69
[2020-09-14] MEDS: Atorvastatin Calcium 40 MG Tablet PO (22:06)
[2020-09-15] MEDS: Acetaminophen 325 MG Tablet 650 MG PO ×2 (00:54→08:35)
[2020-09-15] MEDS: Triamcinolone 0.5% Cream 1 APPLIC TOPICAL (00:55)
[2020-09-15 06:00] VITALS: BP 161/77; PULSE 53; RESP 18; TEMP 36.6; O2SAT 96
[2020-09-15] MEDS: Metoprolol Tartrate 50 MG Tablet PO ×2 (06:00→17:06)
[2020-09-15] MEDS: Furosemide 40 MG Tablet PO (06:00)
[2020-09-15] MEDS: RisperiDONE 0.25 MG Tablet PO ×2 (06:00→17:07)
[2020-09-15] MEDS: Menthol/Lanolin/Calamine/Znox 113 GM Tube 1 APPLIC TOPICAL ×2 (06:00→17:05)
[2020-09-15] MEDS: PARoxetine 10 MG Tablet PO (06:00)
[2020-09-15] MEDS: Senna/Docusate Sodium 1 Tablet 2 TABLET PO (06:00)
[2020-09-15] MEDS: Pantoprazole Sodium 20 MG Tablet PO (06:00)
[2020-09-15] MEDS: Levothyroxine 50 MCG Tablet PO (06:00)
[2020-09-15] MEDS: APIXABAN 2.5 MG TABLET PO ×2 (06:00→17:06)
[2020-09-15] MEDS: Nystatin Powder 15gm Bottle 1 APPLIC TOPICAL ×2 (06:00→17:06)
[2020-09-15] MEDS: Multivitamins,Therapeutic Tablet 1 TABLET PO (08:00)
[2020-09-15] MEDS: Calcium Carb/Vitamin D 1 TABLET Tablet PO (08:00)
[2020-09-15] MEDS: Omega-3 Acid Ethyl Esters 1 GM Capsule PO ×2 (08:00→17:05)
[2020-09-15] MEDS: Cholecalciferol (VIT D3) 25 MCG TABLET (1,000 UNITS) 75 MCG PO (08:00)
[2020-09-15 13:52] VITALS: BP 121/62; PULSE 62; RESP 18; TEMP 36.6; O2SAT 95
--- NOTE | 2020-09-15 16:26 | NURSING ---
family updated at visit
[2020-09-15 17:06] VITALS: BP 121/62; PULSE 62
[2020-09-15] MEDS: Atorvastatin Calcium 40 MG Tablet PO (21:58)
[2020-09-16] MEDS: Acetaminophen 325 MG Tablet 650 MG PO ×2 (01:53→16:30)
--- NOTE | 2020-09-16 01:57 | NURSING ---
Calls requesting Tylenol for lt flank pain. Reports pain in the same location at approximate;y the same time every night. Holding affected area. In no acute distress. Repositions self in bed for comfort. Call light w/ in reach.
[2020-09-16 05:41] LABS: Absolute Neutrophil Count 4.5 X10^3/uL (2.0-7.7); Basophil# 0.08 X10^3/uL; Eosinophil# 0.53 X10^3/uL; Eosinophils% 6.5 % (0-5); Hemoglobin 13.2 g/dL (12.0-15.0); Mean Corp Hgb Conc 31.4 g/dL (32-36); Mean Corpuscular Hgb 29.5 pg (27.0-32.0); Mean Platelet Vol. 11.4 fl (6.2-12.0); Monocyte# 0.77 X10^3/uL; Monocyte% 9.4 % (0-10); NRBC Flagged by Analyzer 0 % (0-5); Neutrophil # 4.54 X10^3/uL (2.7-7.7); Neutrophil % 55.6 % (47-70); Platelet Count 296 K/mm3 (150-450); RBC Distribution Width CV 13.6 % (11.6-14.6); RBC Distribution Width SD 46.3 fl (35.1-43.9); Red Blood Count 4.47 M/mm3 (4.2-5.4); White Blood Count 8.2 K/mm3 (4.4-11.0)
[2020-09-16 06:00] LABS: Anion Gap 5 (5-15); BUN 20 mg/dL (7-18); BUN/Creat Ratio 25.8 RATIO (10-20); Calcium,Total 8.7 mg/dL (8.5-10.1); Chloride 105 mmol/L (98-107); Creatinine, Serum 0.77 mg/dL (0.55-1.02); EST Glomerular Filtration Rate 75 mL/min (>60); Est Glom Filt Rate - Afr Amer 91 mL/min (>60); Estimated Creatinine Clearance 37.01 ml/min; Glucose 91 mg/dL (74-106); Potassium 3.9 mmol/L (3.5-5.1); Sodium Level 138 mmol/L (136-145)
[2020-09-16 06:10] VITALS: BP 146/88; PULSE 68; RESP 16; TEMP 36.5; O2SAT 97
[2020-09-16 06:13] VITALS: BP 146/88; PULSE 68
[2020-09-16] MEDS: Metoprolol Tartrate 50 MG Tablet PO ×2 (06:13→17:44)
[2020-09-16] MEDS: Levothyroxine 50 MCG Tablet PO (06:13)
[2020-09-16] MEDS: PARoxetine 10 MG Tablet PO (06:14)
[2020-09-16] MEDS: APIXABAN 2.5 MG TABLET PO ×2 (06:14→17:41)
[2020-09-16] MEDS: RisperiDONE 0.25 MG Tablet PO ×2 (06:14→17:41)
[2020-09-16] MEDS: Furosemide 40 MG Tablet PO (06:14)
[2020-09-16] MEDS: Pantoprazole Sodium 20 MG Tablet PO (06:14)
[2020-09-16] MEDS: Menthol/Lanolin/Calamine/Znox 113 GM Tube 1 APPLIC TOPICAL ×2 (06:16→17:42)
[2020-09-16] MEDS: Nystatin Powder 15gm Bottle 1 APPLIC TOPICAL ×2 (06:16→17:43)
[2020-09-16] MEDS: Multivitamins,Therapeutic Tablet 1 TABLET PO (08:28)
[2020-09-16] MEDS: Calcium Carb/Vitamin D 1 TABLET Tablet PO (08:28)
[2020-09-16] MEDS: Omega-3 Acid Ethyl Esters 1 GM Capsule PO ×2 (08:28→17:42)
[2020-09-16] MEDS: Cholecalciferol (VIT D3) 25 MCG TABLET (1,000 UNITS) 75 MCG PO (08:29)
[2020-09-16 13:30] VITALS: BP 122/70; PULSE 67; RESP 14; TEMP 36.2; O2SAT 98
--- NOTE | 2020-09-16 15:14 | CASEMGMT ---
Social Work Spoke with pt and she has chosen [facility]. Pt expressed appreciation for SW assistance. Notified [facility] and the [facility]. Will continue to follow for outcome of insurance update 09/17. JAY BarnesW
--- NOTE | 2020-09-16 16:52 | NURSING ---
Pt c/o back pain requesting to try lidoderm patches, N.O. lidoderm patches to back
[2020-09-16] MEDS: Senna/Docusate Sodium 1 Tablet 2 TABLET PO (17:41)
[2020-09-16 17:44] VITALS: PULSE 67
--- NOTE | 2020-09-16 19:04 | NURSING ---
Pt had hair done today and money from lock box given to pt and grandson, grandson gave envelope back to this nurse with 5 dollars left in it. Envelope locked back in med box
[2020-09-16] MEDS: Atorvastatin Calcium 40 MG Tablet PO (22:10)
[2020-09-17] MEDS: oxyCODONE 5 MG Tablet PO ×2 (01:16→23:13)
[2020-09-17 05:00] VITALS: BP 128/70; PULSE 65; RESP 16; TEMP 36.3; O2SAT 96
[2020-09-17 05:17] VITALS: BP 128/70; PULSE 65
[2020-09-17] MEDS: RisperiDONE 0.25 MG Tablet PO ×2 (05:17→16:51)
[2020-09-17] MEDS: PARoxetine 10 MG Tablet PO (05:17)
[2020-09-17] MEDS: APIXABAN 2.5 MG TABLET PO ×2 (05:17→16:49)
[2020-09-17] MEDS: Metoprolol Tartrate 50 MG Tablet PO ×2 (05:17→16:49)
[2020-09-17] MEDS: Pantoprazole Sodium 20 MG Tablet PO (05:17)
[2020-09-17] MEDS: Levothyroxine 50 MCG Tablet PO (05:18)
[2020-09-17] MEDS: Furosemide 40 MG Tablet PO (05:18)
[2020-09-17] MEDS: Senna/Docusate Sodium 1 Tablet 2 TABLET PO (05:18)
[2020-09-17] MEDS: Lidocaine 5% Patch 2 PATCH TOPICAL (05:20)
[2020-09-17] MEDS: Menthol/Lanolin/Calamine/Znox 113 GM Tube 1 APPLIC TOPICAL ×2 (05:21→16:48)
[2020-09-17] MEDS: Nystatin Powder 15gm Bottle 1 APPLIC TOPICAL ×2 (05:22→16:50)
[2020-09-17] MEDS: Calcium Carb/Vitamin D 1 TABLET Tablet PO (07:58)
[2020-09-17] MEDS: Multivitamins,Therapeutic Tablet 1 TABLET PO (07:58)
[2020-09-17] MEDS: Cholecalciferol (VIT D3) 25 MCG TABLET (1,000 UNITS) 75 MCG PO (07:58)
[2020-09-17] MEDS: Omega-3 Acid Ethyl Esters 1 GM Capsule PO ×2 (09:32→16:47)
[2020-09-17 15:28] VITALS: BP 133/73; PULSE 61; RESP 16; TEMP 37; O2SAT 93
--- NOTE | 2020-09-17 16:40 | CASEMGMT ---
Addendum entered by Wanda Noriega 09/18/20 12:21: [facility] unable to accept due to insurance. Pt agreeable to [facility]. Referral made for PT/OT. Original Note: Social Work Insurance issued LCD 09/20, DC 09/21. Notified pt, grandson and [facility]. All agreeable. Grandson to transport. Referred to [facility] PT/OT. No DME needs. Plan: DC to [facility] 09/21 with [facility] PT/OT Wanda Noriega, BOTTOM HOOP DRIVER PRECINCT COMMANDING OFFICER
[2020-09-17 16:49] VITALS: BP 133/73; PULSE 61
--- NOTE | 2020-09-17 19:52 | PCM.DC.SUM ---
Providers Date of Admission: 09/01/20 Primary Care Physician: Dr. Aguila Beebe, Reason For Visit: FALLS, LEFT RIB FRACTURES Diagnosis Discharge Diagnosis (1) Dizziness: Status: Chronic Code(s): R42 - Dizziness and giddiness (2) Forehead contusion: Status: Acute Code(s): S00.83XA - Contusion of other part of head, initial encounter (3) Left rib fracture: Status: Acute Code(s): S22.32XA - Fracture of one rib, left side, initial encounter for closed fracture (4) Skin tear of left upper extremity: Status: Acute Code(s): S41.112A - Laceration without foreign body of left upper arm, initial encounter (5) Hallucinations: Status: Chronic Code(s): R44.3 - Hallucinations, unspecified (6) Falls frequently: Status: Chronic Code(s): R29.6 - Repeated falls (7) PAF (paroxysmal atrial fibrillation): Status: Chronic Code(s): I48.0 - Paroxysmal atrial fibrillation (8) Cough: Status: Acute Code(s): R05 - Cough (9) Non-rheumatic aortic stenosis: Status: Chronic Code(s): I35.0 - Nonrheumatic aortic (valve) stenosis (10) Essential (primary) hypertension: Status: Chronic Code(s): I10 - Essential (primary) hypertension (11) Hyperlipidemia: Status: Chronic Code(s): E78.5 - Hyperlipidemia, unspecified Qualifiers: Qualified Code(s): E78.0 - Pure hypercholesterolemia (12) Secondary pulmonary arterial hypertension: Status: Chronic Code(s): I27.21 - Secondary pulmonary arterial hypertension (13) CVA (cerebral vascular accident): Status: Chronic Code(s): I63.9 - Cerebral infarction, unspecified Medications at Discharge Home Medications metoprolol tartrate 50 mg PO BID 05/13/14 calcium carbonate-vitamin D3 1 ea PO DAILY 11/16/17 [id number] C-Mn 2 ea PO DAILY 11/16/17 multivitamin 1 ea PO DAILY 11/16/17 omeprazole magnesium 20 mg PO DAILY 11/16/17 atorvastatin 40 mg PO QHS #30 tab 12/12/17 cholecalciferol (vitamin D3) 50 mcg (2,000 unit) chewable tablet 3,000 unit PO DAILY 05/17/19 biotin 10,000 mcg capsule 10,000 mcg PO DAILY 02/04/20 omega-3 fatty acids 1,000 mg capsule 1,000 mg PO BID cap 02/04/20 triamcinolone acetonide 1 applic TOPICAL BID PRN 08/31/20 acetaminophen 650 mg PO Q6H PRN PRN tablet 09/01/20 albuterol sulfate 2.5 mg INHALATION Q2H PRN PRN vial.neb. 09/01/20 apixaban 2.5 mg PO BID 09/01/20 furosemide 40 mg PO DAILY 09/01/20 levothyroxine 50 mcg PO DAILY 09/01/20 melatonin 3 mg PO QHS PRN PRN tablet 09/01/20 paroxetine HCl 10 mg PO DAILY 09/01/20 risperidone 0.25 mg PO BID 09/01/20 sennosides-docusate sodium 2 tablet PO BID PRN PRN tablet 09/01/20 lidocaine 2 patch TOPICAL DAILY 30 Days #60 ea 09/17/20 oxycodone 5 mg PO Q4H PRN PRN 1 Days #6 tablet 09/17/20 Hospital Course Operations None Procedures None Summary of Care Provided Minutes Spent on Discharge: 35 Hospital Course: 84 year old female with below past medical history hospitalized for dizziness, falls, rib fractures, hallucinations, admitted to TCU with debility, here for rehabilitation, strengthening, prior to disposition determination. Discharge to [facility] 09/21/2020, [facility] PT/OT. Physical Exam Const alert and oriented x3 General Appearance: cooperative HEENT normocephalic Eyes PERRL and EOMs intact bilaterally Neck supple, no JVD and no carotid bruits Resp normal respiratory effort, normal air movement and clear to auscultation bilaterally Cardio regular rate and regular rhythm GI normal to inspection, nondistended, normoactive bowel sounds, non-tender and non-distended Extremity normal capillary refill General Extremity: Negative for edema Skin no rashes or lesions noted General Skin Exam: no breakdown Psych affect normal Appearance: appropriate ABG / Lab / Microbiology Data Result Diagrams: 09/16/20 05:05 09/16/20 05:05 D/C Instructions Discharge Diet: No restrictions Discharge Activity: Return to Normal Activity, May Shower and Use Walker Weight Bearing Status: Weight bearing as tolerated Call your doctor if you observe: Fever of 101 or Higher, Numbness or Tingling, Inability to urinate, Dizziness, Chest pain, Calf discomfort and Uncontrolled pain Additional Instructions: Discharge to [facility] 09/21/2020, [facility] Care PT/OT. Please follow up with your Primary Care Physician in: 1 week. Please Follow Up With: Aguila Beebe, DO Meaningful Use Info Meaningful Use Diagnoses (Choose all that apply): None applicable Discharge Plan Admission Admit Date/Time: 09/01/20 18:54 Primary Reason for Your Visit: Debility Attending Provider: Anuja Stewart Primary Care Provider: Aguila Bebee Instructions Additional Instructions / Restrictions: Discharge to [facility] 09/21/2020, [facility] PT/OT. Discharge Orders/Prescriptions Prescriptions: New lidocaine 5 % Adhesive Patch,Medicated 2 patch topical DAILY 30 Days Qty: 60 RF: 0 Continued omega-3 fatty acids [Fish Oil Concentrate] 1,000 mg capsule 1,000 mg PO BID RF: 0 cholecalciferol (vitamin D3) 2,000 unit tablet,chewable 3,000 unit PO DAILY RF: 0 biotin 10,000 mcg capsule 10,000 mcg PO DAILY RF: 0 metoprolol tartrate 50 MG tablet 50 mg PO BID RF: 0 multivitamin 1 EACH tablet 1 ea PO DAILY RF: 0 [id number] C-Mn 1 EACH capsule 2 ea PO DAILY RF: 0 calcium carbonate-vitamin D3 1 EACH tablet 1 ea PO DAILY RF: 0 omeprazole magnesium 20 MG tablet,delayed release (DR/EC) 20 mg PO DAILY RF: 0 atorvastatin 40 MG tablet 40 mg PO QHS Qty: 30 RF: 0 triamcinolone acetonide 1 APPLIC cream 1 applic TOPICAL BID PRN (Reason: Itching) RF: 0 acetaminophen 325 MG tablet 650 mg PO Q6H PRN PRN (Reason: Pain Score 1-10/Temp > 100.7 F) RF: 0 albuterol sulfate 2.5 MG/3 ML solution for nebulization 2.5 mg INHALATION Q2H PRN PRN (Reason: SOB/Wheezing) RF: 0 sennosides-docusate sodium 1 TABLET tablet 2 tablet PO BID PRN PRN (Reason: Constipation) RF: 0 melatonin 3 MG tablet 3 mg PO QHS PRN PRN (Reason: Insomnia) RF: 0 furosemide 40 MG tablet 40 mg PO DAILY RF: 0 paroxetine HCl 10 MG tablet 10 mg PO DAILY RF: 0 risperidone 0.25 MG tablet 0.25 mg PO BID RF: 0 levothyroxine 50 MCG tablet 50 mcg PO DAILY RF: 0 apixaban 2.5 MG tablet 2.5 mg PO BID RF: 0 oxycodone 5 MG tablet 5 mg PO Q4H PRN PRN (Reason: Pain Score 6-10) 1 Days Qty: 6 RF: 0 Referrals: Aguila Beebe DO [Primary Care Provider] - Disposition Patient Disposition: NonSkilled NH/Intermed Care
[2020-09-17 19:57] VITALS: PULSE 63; RESP 16; O2SAT 93
--- NOTE | 2020-09-17 20:02 | TREXTCAR_ITS ---
Diet 09/02/20 07:07 Diet: Regular - General Food consistency:: Regular Liquid Consistency:: Regular/Thin Is pt able to select menu?: Yes Routine Orders/Code Status Suppository Type: Dulcolax 10mg Suppository Frequency: Daily PRN Wound(s) Right forearm: Wound Type: Abrasion Left Elbow: Wound Type: Abrasion Dressing Change: bandage 09/06 Left Forearm: Wound Type: Abrasion Dressing Change: bandage 09/06 Therapies Weight Bearing: Weight bearing as tolerated Extremity Affected:: Bilateral Lower Physical Therapy: Eval and Treat Occupational Therapy: Eval and Treat Problem/Diagnosis (1) Dizziness: Status: Chronic (2) Forehead contusion: Status: Acute (3) Left rib fracture: Status: Acute (4) Skin tear of left upper extremity: Status: Acute (5) Hallucinations: Status: Chronic (6) Falls frequently: Status: Chronic (7) PAF (paroxysmal atrial fibrillation): Status: Chronic (8) Cough: Status: Acute (9) Non-rheumatic aortic stenosis: Status: Chronic (10) Essential (primary) hypertension: Status: Chronic (11) Hyperlipidemia: Status: Chronic (12) Secondary pulmonary arterial hypertension: Status: Chronic (13) CVA (cerebral vascular accident): Status: Chronic Comment: Acute left cerebellar infarct (small) Allergies/Procedures Done in Hospital Allergies aspirin Allergy (Verified 08/19/20 22:52) Hives tetanus immune globulin Allergy (Verified 08/19/20 22:52) Rash sulfamethoxazole [From Bactrim] Adverse Reaction (Verified 08/19/20 23:21) Rash trimethoprim [From Bactrim] Adverse Reaction (Verified 08/19/20 23:21) Rash Type of Care/Length of Stay Estimated LOS: More Than 30 Days Type of Care Needed: Detention/Assisted Living Rehab Potential: Fair Prognosis: Fair Additional Orders/Day of Discharge Day of Discharge: 09/21/20 Dietary and Speech Recommendations Dietitian Recommendations/Changes: Will continue liberal Regular diet d/t res advanced age and hx decreased appetite Will continue Ensure Enlive at medpass only per res preference Follow Up Care Please follow up with your Primary Care Physician in: 1 week. Please Follow Up With: Aguila Beebe DO When: 1-2 weeks after discharge Please Follow Up With: Juwan Whitlock MD Discharge Plan Admission Admit Date/Time: 09/01/20 18:54 Primary Reason for Your Visit: Debility Attending Provider: Anuja Stewart Primary Care Provider: Aguila Beebe Instructions Additional Instructions / Restrictions: Discharge to [facility] 09/21/2020, [facility] Care PT/OT. Discharge Orders/Prescriptions Prescriptions: New lidocaine 5 % Adhesive Patch,Medicated 2 patch topical DAILY 30 Days Qty: 60 RF: 0 Continued omega-3 fatty acids [Fish Oil Concentrate] 1,000 mg capsule 1,000 mg PO BID RF: 0 cholecalciferol (vitamin D3) 2,000 unit tablet,chewable 3,000 unit PO DAILY RF: 0 biotin 10,000 mcg capsule 10,000 mcg PO DAILY RF: 0 metoprolol tartrate 50 MG tablet 50 mg PO BID RF: 0 multivitamin 1 EACH tablet 1 ea PO DAILY RF: 0 [id number]-[id number] C-Mn 1 EACH capsule 2 ea PO DAILY RF: 0 calcium carbonate-vitamin D3 1 EACH tablet 1 ea PO DAILY RF: 0 omeprazole magnesium 20 MG tablet,delayed release (DR/EC) 20 mg PO DAILY RF: 0 atorvastatin 40 MG tablet 40 mg PO QHS Qty: 30 RF: 0 triamcinolone acetonide 1 APPLIC cream 1 applic TOPICAL BID PRN (Reason: Itching) RF: 0 acetaminophen 325 MG tablet 650 mg PO Q6H PRN PRN (Reason: Pain Score 1-10/Temp > 100.7 F) RF: 0 albuterol sulfate 2.5 MG/3 ML solution for nebulization 2.5 mg INHALATION Q2H PRN PRN (Reason: SOB/Wheezing) RF: 0 sennosides-docusate sodium 1 TABLET tablet 2 tablet PO BID PRN PRN (Reason: Constipation) RF: 0 melatonin 3 MG tablet 3 mg PO QHS PRN PRN (Reason: Insomnia) RF: 0 furosemide 40 MG tablet 40 mg PO DAILY RF: 0 paroxetine HCl 10 MG tablet 10 mg PO DAILY RF: 0 risperidone 0.25 MG tablet 0.25 mg PO BID RF: 0 levothyroxine 50 MCG tablet 50 mcg PO DAILY RF: 0 apixaban 2.5 MG tablet 2.5 mg PO BID RF: 0 oxycodone 5 MG tablet 5 mg PO Q4H PRN PRN (Reason: Pain Score 6-10) 1 Days Qty: 6 RF: 0 Referrals: Aguila Beebe DO [Primary Care Provider] - Disposition Patient Disposition: NonSkilled NH/Intermed Care
[2020-09-17] MEDS: Atorvastatin Calcium 40 MG Tablet PO (20:06)
[2020-09-18 05:00] VITALS: BP 134/71; PULSE 72; RESP 16; TEMP 36.4; O2SAT 93
[2020-09-18] MEDS: Lidocaine 5% Patch 2 PATCH TOPICAL (05:23)
[2020-09-18 05:24] VITALS: BP 134/71; PULSE 72
[2020-09-18] MEDS: Pantoprazole Sodium 20 MG Tablet PO (05:24)
[2020-09-18] MEDS: PARoxetine 10 MG Tablet PO (05:24)
[2020-09-18] MEDS: Metoprolol Tartrate 50 MG Tablet PO ×2 (05:24→17:02)
[2020-09-18] MEDS: APIXABAN 2.5 MG TABLET PO ×2 (05:24→17:01)
[2020-09-18] MEDS: RisperiDONE 0.25 MG Tablet PO ×2 (05:24→17:01)
[2020-09-18] MEDS: Furosemide 40 MG Tablet PO (05:24)
[2020-09-18] MEDS: Levothyroxine 50 MCG Tablet PO (05:24)
[2020-09-18] MEDS: Senna/Docusate Sodium 1 Tablet 2 TABLET PO (05:25)
[2020-09-18] MEDS: Nystatin Powder 15gm Bottle 1 APPLIC TOPICAL ×2 (05:26→17:02)
[2020-09-18] MEDS: Menthol/Lanolin/Calamine/Znox 113 GM Tube 1 APPLIC TOPICAL ×2 (05:26→17:02)
[2020-09-18 05:28] VITALS: PULSE 72; RESP 16; O2SAT 93
[2020-09-18] MEDS: Calcium Carb/Vitamin D 1 TABLET Tablet PO (07:47)
[2020-09-18] MEDS: Cholecalciferol (VIT D3) 25 MCG TABLET (1,000 UNITS) 75 MCG PO (07:47)
[2020-09-18] MEDS: Omega-3 Acid Ethyl Esters 1 GM Capsule PO ×2 (07:47→17:01)
[2020-09-18] MEDS: Multivitamins,Therapeutic Tablet 1 TABLET PO (07:48)
[2020-09-18 13:53] VITALS: BP 121/52; PULSE 62; RESP 16; TEMP 36.9; O2SAT 95
[2020-09-18 17:02] VITALS: PULSE 62
[2020-09-18] MEDS: Atorvastatin Calcium 40 MG Tablet PO (20:30)
[2020-09-18] MEDS: Acetaminophen 325 MG Tablet 650 MG PO (22:43)
[2020-09-19 05:00] VITALS: BP 154/77; PULSE 62; RESP 18; TEMP 36.7; O2SAT 93
[2020-09-19 05:30] VITALS: BP 154/77; PULSE 62
[2020-09-19] MEDS: APIXABAN 2.5 MG TABLET PO ×2 (05:30→17:07)
[2020-09-19] MEDS: Furosemide 40 MG Tablet PO (05:30)
[2020-09-19] MEDS: Metoprolol Tartrate 50 MG Tablet PO ×2 (05:30→17:06)
[2020-09-19] MEDS: Senna/Docusate Sodium 1 Tablet 2 TABLET PO ×2 (05:31→17:06)
[2020-09-19] MEDS: Pantoprazole Sodium 20 MG Tablet PO (05:31)
[2020-09-19] MEDS: PARoxetine 10 MG Tablet PO (05:31)
[2020-09-19] MEDS: RisperiDONE 0.25 MG Tablet PO ×2 (05:31→17:07)
[2020-09-19] MEDS: Levothyroxine 50 MCG Tablet PO (05:31)
[2020-09-19] MEDS: Menthol/Lanolin/Calamine/Znox 113 GM Tube 1 APPLIC TOPICAL ×2 (05:31→17:07)
[2020-09-19] MEDS: Nystatin Powder 15gm Bottle 1 APPLIC TOPICAL ×2 (05:31→17:07)
[2020-09-19] MEDS: Lidocaine 5% Patch 2 PATCH TOPICAL (05:33)
[2020-09-19] MEDS: Cholecalciferol (VIT D3) 25 MCG TABLET (1,000 UNITS) 75 MCG PO (07:36)
[2020-09-19] MEDS: Multivitamins,Therapeutic Tablet 1 TABLET PO (07:36)
[2020-09-19] MEDS: Omega-3 Acid Ethyl Esters 1 GM Capsule PO ×2 (07:37→17:07)
[2020-09-19] MEDS: Calcium Carb/Vitamin D 1 TABLET Tablet PO (07:37)
[2020-09-19 13:40] VITALS: BP 140/63; PULSE 69; RESP 0; TEMP 36.1; O2SAT 96
[2020-09-19 17:06] VITALS: PULSE 65
[2020-09-19] MEDS: Atorvastatin Calcium 40 MG Tablet PO (21:09)
[2020-09-20] MEDS: oxyCODONE 5 MG Tablet PO (00:44)
[2020-09-20 05:25] VITALS: BP 116/71; PULSE 64; RESP 16; TEMP 36.8; O2SAT 95
[2020-09-20] MEDS: RisperiDONE 0.25 MG Tablet PO ×2 (05:27→16:59)
[2020-09-20] MEDS: APIXABAN 2.5 MG TABLET PO ×2 (05:27→16:59)
[2020-09-20] MEDS: Menthol/Lanolin/Calamine/Znox 113 GM Tube 1 APPLIC TOPICAL ×2 (05:27→17:02)
[2020-09-20] MEDS: Pantoprazole Sodium 20 MG Tablet PO (05:28)
[2020-09-20] MEDS: PARoxetine 10 MG Tablet PO (05:28)
[2020-09-20] MEDS: Furosemide 40 MG Tablet PO (05:28)
[2020-09-20 05:29] VITALS: BP 116/71; PULSE 64
[2020-09-20] MEDS: Metoprolol Tartrate 50 MG Tablet PO ×2 (05:29→16:59)
[2020-09-20] MEDS: Senna/Docusate Sodium 1 Tablet 2 TABLET PO (05:29)
[2020-09-20] MEDS: Nystatin Powder 15gm Bottle 1 APPLIC TOPICAL ×2 (05:30→17:02)
[2020-09-20] MEDS: Lidocaine 5% Patch 2 PATCH TOPICAL (05:31)
[2020-09-20] MEDS: Cholecalciferol (VIT D3) 25 MCG TABLET (1,000 UNITS) 75 MCG PO (08:37)
[2020-09-20] MEDS: Calcium Carb/Vitamin D 1 TABLET Tablet PO (08:37)
[2020-09-20] MEDS: Multivitamins,Therapeutic Tablet 1 TABLET PO (08:37)
[2020-09-20] MEDS: Omega-3 Acid Ethyl Esters 1 GM Capsule PO ×2 (08:37→16:59)
[2020-09-20 09:16] VITALS: PULSE 68; RESP 16
[2020-09-20 15:03] VITALS: BP 115/54; PULSE 71; RESP 16; TEMP 36.7; O2SAT 94
[2020-09-20 16:59] VITALS: BP 115/54; PULSE 71
[2020-09-20] MEDS: Atorvastatin Calcium 40 MG Tablet PO (22:00)
[2020-09-21] MEDS: Acetaminophen 325 MG Tablet 650 MG PO (00:33)
[2020-09-21] MEDS: Senna/Docusate Sodium 1 Tablet 2 TABLET PO (06:58)
[2020-09-21] MEDS: Pantoprazole Sodium 20 MG Tablet PO (06:59)
[2020-09-21] MEDS: PARoxetine 10 MG Tablet PO (06:59)
[2020-09-21] MEDS: Nystatin Powder 15gm Bottle 1 APPLIC TOPICAL (06:59)
[2020-09-21] MEDS: RisperiDONE 0.25 MG Tablet PO (06:59)
[2020-09-21] MEDS: Furosemide 40 MG Tablet PO (06:59)
[2020-09-21] MEDS: Levothyroxine 50 MCG Tablet PO (06:59)
[2020-09-21] MEDS: APIXABAN 2.5 MG TABLET PO (06:59)
[2020-09-21 07:00] VITALS: BP 135/88; PULSE 67
[2020-09-21] MEDS: Metoprolol Tartrate 50 MG Tablet PO (07:00)
[2020-09-21] MEDS: Lidocaine 5% Patch 2 PATCH TOPICAL (07:01)
[2020-09-21] MEDS: Menthol/Lanolin/Calamine/Znox 113 GM Tube 1 APPLIC TOPICAL (07:03)
[2020-09-21 07:04] VITALS: BP 135/88; PULSE 68; RESP 14; TEMP 36.8; O2SAT 96
[2020-09-21] MEDS: Calcium Carb/Vitamin D 1 TABLET Tablet PO (08:29)
[2020-09-21] MEDS: Multivitamins,Therapeutic Tablet 1 TABLET PO (08:30)
[2020-09-21] MEDS: Omega-3 Acid Ethyl Esters 1 GM Capsule PO (08:30)
[2020-09-21] MEDS: Cholecalciferol (VIT D3) 25 MCG TABLET (1,000 UNITS) 75 MCG PO (08:30)
[2020-09-21 08:31] VITALS: PULSE 81; O2SAT 95
[2020-09-21 09:39] VITALS: BP 133/71; PULSE 75; RESP 14; TEMP 36.3; O2SAT 95
== END 2020-09-21 10:30 | disposition home health service (06) | DRG 560 ==
PROVIDERS: Admitting Provider Internal Medicine; PCP Student in an Organized Health Care Education/Training Program; Visit Provider Internal Medicine
DX: S22.42XD Multiple fractures of ribs, left side, subsequent encounter for fracture with routine healing (principal); R44.3 Hallucinations, unspecified; W19.XXXD Unspecified fall, subsequent encounter; S00.83XD Contusion of other part of head, subsequent encounter; S41.112D Laceration without foreign body of left upper arm, subsequent encounter; I48.0 Paroxysmal atrial fibrillation; R29.6 Repeated falls; I10 Essential (primary) hypertension; E78.5 Hyperlipidemia, unspecified; E03.9 Hypothyroidism, unspecified; I27.21 Secondary pulmonary arterial hypertension; E55.9 Vitamin D deficiency, unspecified; F32.9 Major depressive disorder, single episode, unspecified; K21.9 Gastro-esophageal reflux disease without esophagitis; K44.9 Diaphragmatic hernia without obstruction or gangrene; K57.30 Diverticulosis of large intestine without perforation or abscess without bleeding; Z79.01 Long term (current) use of anticoagulants; Z86.73 Personal history of transient ischemic attack (TIA), and cerebral infarction without residual deficits; Z79.899 Other long term (current) drug therapy
CPT/HCPCS: 36415; 80048; 83735; 85025; 87635; 97110; 97116; 97162; 97166; 97530; 97535; 97802; U0002

== ENCOUNTER → 2020-09-28 05:00 | Outpatient (REF) | payer MEDICARE, SELFPAY ==
[2020-09-01 19:25] VITALS: BMI 21.3
[2020-09-28 08:27] LABS: BUN 16 mg/dL (7-18); Creatinine, Serum 0.75 mg/dL (0.55-1.02); Glucose 99 mg/dL (74-106)
[2020-09-28 08:28] LABS: ALB/GLOB Ratio 0.8 RATIO (0.9-2.4); AST(SGOT) 19 U/L (15-37); Alanine Aminotransfer ALT/SGPT 25 U/L (13-56); Albumin, Serum 3.3 g/dL (3.2-5.0); Alkaline Phosphatase 106 U/L (45-117); Anion Gap 4 (5-15); BUN/Creat Ratio 21.3 RATIO (10-20); Calcium,Total 8.3 mg/dL (8.5-10.1); Chloride 103 mmol/L (98-107); EST Glomerular Filtration Rate 78 mL/min (>60); Est Glom Filt Rate - Afr Amer 94 mL/min (>60); Globulin 4.1 g/dL (2.2-4.2); Potassium 3.7 mmol/L (3.5-5.1); Protein, Total 7.4 g/dL (6.4-8.2); Sodium Level 136 mmol/L (136-145)
== END ==
PROVIDERS: PCP Student in an Organized Health Care Education/Training Program; Visit Provider Student in an Organized Health Care Education/Training Program
DX: I10 Essential (primary) hypertension (principal); Z79.899 Other long term (current) drug therapy
CPT/HCPCS: 36415; 80053; 82306

== ENCOUNTER → 2020-12-02 05:00 | Outpatient (REF) | payer MEDICARE, SELFPAY ==
[2020-10-08 14:23] VITALS: BMI 22.3
[2020-12-02 07:26] LABS: Hematocrit 40.2 % (37-47); Hemoglobin 12.8 g/dL (12.0-15.0); Mean Corp Hgb Conc 31.8 g/dL (32-36); Mean Corpuscular Hgb 29.8 pg (27.0-32.0); Mean Corpuscular Volume 93.5 fL (81-99); Mean Platelet Vol. 12.2 fl (6.2-12.0); Platelet Count 188 K/mm3 (150-450); RBC Distribution Width CV 13.5 % (11.6-14.6); White Blood Count 5.9 K/mm3 (4.4-11.0)
[2020-12-02 07:48] LABS: ALB/GLOB Ratio 0.9 RATIO (0.9-2.4); AST(SGOT) 19 U/L (15-37); Alanine Aminotransfer ALT/SGPT 24 U/L (13-56); Alkaline Phosphatase 88 U/L (45-117); Anion Gap 5 (5-15); BUN 16 mg/dL (7-18); BUN/Creat Ratio 20.5 RATIO (10-20); Chloride 109 mmol/L (98-107); Cholesterol 94 mg/dL (200); Creatinine, Serum 0.78 mg/dL (0.55-1.02); EST Glomerular Filtration Rate 75 mL/min (>60); Est Glom Filt Rate - Afr Amer 90 mL/min (>60); Globulin 3.2 g/dL (2.2-4.2); Glucose 93 mg/dL (74-106); High Density Lipoprotein 51 mg/dL; Potassium 3.5 mmol/L (3.5-5.1); Protein, Total 6.2 g/dL (6.4-8.2); Sodium Level 140 mmol/L (136-145); T4 Free Direct 1.13 ng/dL (0.76-1.46); Thyroid Stim Hormone (TSH) 1.21 uIU/mL (0.358-3.74); Triglycerides 30 mg/dL; Very Low Density Lipoprotein 6 mg/dL (5-40)
== END ==
PROVIDERS: PCP Student in an Organized Health Care Education/Training Program; Referring Provider Family Medicine; Visit Provider Family Medicine
DX: I10 Essential (primary) hypertension (principal); E78.5 Hyperlipidemia, unspecified; E03.9 Hypothyroidism, unspecified; Z79.899 Other long term (current) drug therapy
CPT/HCPCS: 36415; 80053; 80061; 84439; 84443; 85027

== ENCOUNTER → 2020-12-29 05:00 | Outpatient (REF) | payer MEDICARE, SELFPAY ==
[2020-10-08 14:23] VITALS: BMI 22.3
[2020-12-29 07:51] LABS: Hematocrit 40.6 % (37-47); Hemoglobin 12.8 g/dL (12.0-15.0); Mean Corp Hgb Conc 31.5 g/dL (32-36); Mean Corpuscular Hgb 29.1 pg (27.0-32.0); Mean Corpuscular Volume 92.3 fL (81-99); Mean Platelet Vol. 12.3 fl (6.2-12.0); Platelet Count 190 K/mm3 (150-450); RBC Distribution Width CV 13.5 % (11.6-14.6); RBC Distribution Width SD 45.7 fl (35.1-43.9); White Blood Count 6.2 K/mm3 (4.4-11.0)
[2020-12-29 08:17] LABS: ALB/GLOB Ratio 0.9 RATIO (0.9-2.4); AST(SGOT) 21 U/L (15-37); Alanine Aminotransfer ALT/SGPT 22 U/L (13-56); Alkaline Phosphatase 82 U/L (45-117); Anion Gap 7 (5-15); BUN 17 mg/dL (7-18); BUN/Creat Ratio 23.8 RATIO (10-20); Calcium,Total 8.1 mg/dL (8.5-10.1); Chloride 106 mmol/L (98-107); Creatinine, Serum 0.71 mg/dL (0.55-1.02); EST Glomerular Filtration Rate 83 mL/min (>60); Est Glom Filt Rate - Afr Amer 100 mL/min (>60); Globulin 3.4 g/dL (2.2-4.2); Glucose 95 mg/dL (74-106); Potassium 3.6 mmol/L (3.5-5.1); Protein, Total 6.4 g/dL (6.4-8.2); Sodium Level 140 mmol/L (136-145)
== END ==
PROVIDERS: PCP Student in an Organized Health Care Education/Training Program; Visit Provider Family Medicine
DX: Z79.899 Other long term (current) drug therapy (principal)
CPT/HCPCS: 36415; 80053; 85027

== ENCOUNTER → 2021-05-13 15:12 | Outpatient (CLI) | payer MEDICARE, SELFPAY ==
[2021-05-13 17:01] LABS: Anion Gap 6 (5-15); BUN 13 mg/dL (7-18); Calcium,Total 8.5 mg/dL (8.5-10.1); Chloride 104 mmol/L (98-107); Creatinine, Serum 0.93 mg/dL (0.55-1.02); EST Glomerular Filtration Rate 61 mL/min (>60); Est Glom Filt Rate - Afr Amer 73 mL/min (>60); Glucose 112 mg/dL (74-106); Potassium 3.5 mmol/L (3.5-5.1); Sodium Level 141 mmol/L (136-145)
[2021-05-13 17:05] LABS: BNP,B-Type NATRIURETIC PEPTIDE 420.4 pg/mL (0-100)
== END ==
PROVIDERS: PCP Family Medicine; Visit Provider Nurse Practitioner Gerontology
DX: R06.00 Dyspnea, unspecified (principal)
CPT/HCPCS: 36415; 80048; 83880

== ENCOUNTER → 2021-05-20 04:00 | Outpatient (REF) | payer MEDICARE, SELFPAY ==
[2021-05-20 09:28] LABS: Anion Gap 5 (5-15); BUN 14 mg/dL (7-18); Calcium,Total 8.7 mg/dL (8.5-10.1); Chloride 106 mmol/L (98-107); Creatinine, Serum 0.74 mg/dL (0.55-1.02); EST Glomerular Filtration Rate 80 mL/min (>60); Est Glom Filt Rate - Afr Amer 96 mL/min (>60); Glucose 97 mg/dL (74-106); Potassium 3.8 mmol/L (3.5-5.1); Sodium Level 138 mmol/L (136-145)
== END ==
PROVIDERS: PCP Family Medicine; Referring Provider Internal Medicine Cardiovascular Disease; Visit Provider Internal Medicine Cardiovascular Disease
DX: I48.91 Unspecified atrial fibrillation (principal); I10 Essential (primary) hypertension
CPT/HCPCS: 36415; 80048

== ENCOUNTER 2021-05-31 13:58 | Outpatient (CLI) | payer MEDICARE, SELFPAY ==
--- NOTE | 2021-05-31 14:00 | ECHOD_ITS ---
Reason For Study: AORTIC STENOSIS Procedure This was a 2D Doppler, Color Flow transthoracic echocardiogram. Exam performed in department. Left Ventricle Normal LV size. Moderate concentric left ventricular hypertrophy. Left ventricular systolic function is normal. The estimated ejection fraction is 55 %. No regional wall motion abnormalities noted. Right Ventricle Normal RV size. Normal systolic function. Atria The left atrium is moderately enlarged. The right atrium is moderately enlarged. Mitral Valve There is mild mitral annular calcification. Mild (1+) eccentric mitral valve insufficiency. Tricuspid Valve Normal tricuspid valve. Mild to moderate (1-2+) tricuspid valve insufficiency. Pulmonary artery systolic pressure is 38 mmHg. Aortic Valve Trisinus/trileaflet aortic valve. Peak aortic valve gradient 35 mmHg. Mean aortic valve gradient 20 mmHg. Moderate aortic stenosis. Pulmonic Valve Normal pulmonic valve. Mild (1+) pulmonic valve insufficiency. Great Vessels Calcified aortic root. The pulmonary artery is normal size. Normal inferior vena cava. Pericardium/Pleural Trivial pericardial effusion. MMode/2D Measurements & Calculations LVIDd: 3.6 cm IVSd: 1.3 cm LVOT diam: 2.0 cm LVIDs: 2.4 cm LVPWd: 1.3 cm LVOT area: 3.1 cm2 RVDd: 3.7 cm FS: 34.0 % Ao root diam: 3.6 cm LAV(MOD-bp): 101.1 ml Aortic Valve Planimetry: 0.86 cm2 LA dimension: 5.0 cm LAV(MOD-bp) Indexed: 58.2 ml/m2 LAV(MOD-sp2): 90.2 ml LAV(MOD-sp4): 102.4 ml LA A4 area: 30.2 cm2 RA A4 area: 27.1 cm2 Doppler Measurements & Calculations Ao V2 max: 297.0 cm/sec LV V1 max: 74.9 cm/sec SV(LVOT): 49.5 ml Ao max P.3 mmHg LV V1 max P.2 mmHg Ao V2 mean: 218.8 cm/sec LV V1 mean P.3 mmHg Ao mean P.7 mmHg LV V1 mean: 53.6 cm/sec Ao V2 VTI: 61.1 cm LV V1 VTI: 16.1 cm DYLAN(I,D): 0.81 cm2 DYLAN(V,D): 0.78 cm2 PA V2 max: 80.1 cm/sec TR max domitila: 287.4 cm/sec PI dec slope: 136.3 cm/sec2 TR max P.0 mmHg ECHO/Echo Complete Interpretation Summary Normal LV size. Moderate concentric left ventricular hypertrophy. Left ventricular systolic function is normal. The estimated ejection fraction is 55 %. Mean aortic valve gradient 20 mmHg. Moderate aortic stenosis. The left atrium is moderately enlarged. The right atrium is moderately enlarged. Compared to the previous echo the aortic stenosis is about the same. Ordering Physician: Monica De La Cruz Referring Physician: Aguila Beebe Performed By: Zahira Mathew, [place], RVT
== END 2021-05-31 23:59 | disposition short-term general hospital (02) ==
LOC: CVS 13:59
PROVIDERS: PCP Student in an Organized Health Care Education/Training Program; Referring Provider Nurse Practitioner Gerontology; Visit Provider Nurse Practitioner Gerontology
DX: I35.0 Nonrheumatic aortic (valve) stenosis (principal)
CPT/HCPCS: 93306

== ENCOUNTER 2021-08-05 15:19 | Outpatient (CLI) | payer MEDICARE, SELFPAY ==
[2021-08-05 16:49] LABS: Anion Gap 4 (5-15); BUN 15 mg/dL (7-18); BUN/Creat Ratio 16.5 RATIO (10-20); Calcium,Total 8.8 mg/dL (8.5-10.1); Chloride 107 mmol/L (98-107); Creatinine, Serum 0.91 mg/dL (0.55-1.02); EST Glomerular Filtration Rate 62 mL/min (>60); Est Glom Filt Rate - Afr Amer 76 mL/min (>60); Glucose 99 mg/dL (74-106); Potassium 4.1 mmol/L (3.5-5.1); Sodium Level 141 mmol/L (136-145)
[2021-08-05 17:05] LABS: BNP,B-Type NATRIURETIC PEPTIDE 428.1 pg/mL (0-100)
== END 2021-08-05 23:59 | disposition home or self-care (01) ==
LOC: LAB 15:21
PROVIDERS: PCP Family Medicine; Visit Provider Nurse Practitioner Gerontology
DX: R06.00 Dyspnea, unspecified (principal)
CPT/HCPCS: 36415; 80048; 83880

== ENCOUNTER 2021-08-11 05:00 | Outpatient (REF) | payer MEDICARE, SELFPAY ==
[2021-08-11 08:59] LABS: Anion Gap 3 (5-15); BUN 11 mg/dL (7-18); BUN/Creat Ratio 14.3 RATIO (10-20); Chloride 105 mmol/L (98-107); Creatinine, Serum 0.77 mg/dL (0.55-1.02); EST Glomerular Filtration Rate 75 mL/min (>60); Est Glom Filt Rate - Afr Amer 91 mL/min (>60); Glucose 106 mg/dL (74-106); Sodium Level 140 mmol/L (136-145)
== END 2021-08-11 23:59 | disposition home or self-care (01) ==
PROVIDERS: PCP Family Medicine
DX: R06.00 Dyspnea, unspecified (principal)
CPT/HCPCS: 36415; 80048

== ENCOUNTER 2021-08-20 12:47 | Outpatient (CLI) | payer MEDICARE, SELFPAY ==
--- NOTE | 2021-08-20 14:40 | PFTCOMP_ITS ---
COMPLETE PULMONARY FUNCTION TEST INTERPRETATION Brief HPI: Patient is an 85 year old female, currently under the care of Monica De La Cruz, who presents to [facility] for complete pulmonary function tests secondary to diagnosis of dyspnea. Respiratory therapist reports good effort and reproducible results. Interpretation: Forced expiration spirometry shows a mild large airways obstructive ventilatory defect with an FEV1 of 83% predicted. There is a significant bronchodilator response in FVC by strict ATS criteria. Spirograms are of good quality and plateau slowly, indicating slowly emptying areas of the lungs. The respiratory flow volume loop shows decreased expiratory flow rates at high lung volumes consistent with small airways obstruction. Lung volumes by body plethysmography show a normal total lung capacity at 4.45 L, 91% predicted. FRC and RV are elevated out of proportion. Lung volume measurements are consistent with air-trapping. Diffusion capacity by carbon monoxide is at the lower limit of normal at 66% predicted. The airway resistance is elevated. No previous pulmonary function tests were available for review. Impression: Partially reversible mild large airways obstructive ventilatory defect with a disproportionate reduction diffusing capacity, resulting in air trapping.
== END 2021-08-20 23:59 | disposition home or self-care (01) ==
LOC: PSN 12:48
PROVIDERS: PCP Family Medicine; Referring Provider Nurse Practitioner Gerontology; Visit Provider Nurse Practitioner Gerontology
DX: R06.00 Dyspnea, unspecified (principal)
CPT/HCPCS: 94060; 94726; 94729

== ENCOUNTER → 2021-11-12 | Outpatient (REF) | payer MEDICARE, SELFPAY ==
[2021-11-12 08:28] LABS: AST(SGOT) 20 U/L (15-37); Alanine Aminotransfer ALT/SGPT 19 U/L (13-56); Alkaline Phosphatase 75 U/L (45-117); Bilirubin, Direct 0.18 mg/dL (0.00-0.30); Cholesterol 107 mg/dL (200); Globulin 3.5 g/dL (2.2-4.2); High Density Lipoprotein 46 mg/dL; Protein, Total 6.5 g/dL (6.4-8.2); Triglycerides 68 mg/dL; Very Low Density Lipoprotein 14 mg/dL (5-40)
== END ==
PROVIDERS: PCP Family Medicine
DX: E78.5 Hyperlipidemia, unspecified (principal)
CPT/HCPCS: 36415; 80061; 80076

== ENCOUNTER → 2021-12-01 04:00 | Outpatient (REF) | payer MEDICARE, SELFPAY ==
[2021-12-01 08:53] LABS: Hematocrit 44.5 % (37-47); Hemoglobin 14.3 g/dL (12.0-15.0); Mean Corp Hgb Conc 32.1 g/dL (32-36); Mean Corpuscular Hgb 29.9 pg (27.0-32.0); Mean Corpuscular Volume 92.9 fL (81-99); Mean Platelet Vol. 12.9 fl (6.2-12.0); Platelet Count 198 K/mm3 (150-450); RBC Distribution Width CV 13.3 % (11.6-14.6); RBC Distribution Width SD 45.5 fl (35.1-43.9); Red Blood Count 4.79 M/mm3 (4.2-5.4); White Blood Count 7.5 K/mm3 (4.4-11.0)
[2021-12-01 09:14] LABS: ALB/GLOB Ratio 0.9 RATIO (0.9-2.4); AST(SGOT) 22 U/L (15-37); Alanine Aminotransfer ALT/SGPT 23 U/L (13-56); Albumin, Serum 3.3 g/dL (3.2-5.0); Alkaline Phosphatase 81 U/L (45-117); Anion Gap 6 (5-15); BUN 12 mg/dL (7-18); BUN/Creat Ratio 15.1 RATIO (10-20); Calcium,Total 8.5 mg/dL (8.5-10.1); Chloride 109 mmol/L (98-107); Cholesterol 122 mg/dL (200); EST Glomerular Filtration Rate 73 mL/min (>60); Est Glom Filt Rate - Afr Amer 88 mL/min (>60); Globulin 3.7 g/dL (2.2-4.2); Glucose 106 mg/dL (74-106); High Density Lipoprotein 53 mg/dL; Potassium 4.3 mmol/L (3.5-5.1); Sodium Level 139 mmol/L (136-145); T4 Total, Thyroxin 9.6 ug/dL (4.8-13.9); Thyroid Stim Hormone (TSH) 1.88 uIU/mL (0.358-3.74); Triglycerides 79 mg/dL; Very Low Density Lipoprotein 16 mg/dL (5-40)
== END ==
PROVIDERS: PCP Family Medicine; Visit Provider Family Medicine
DX: I10 Essential (primary) hypertension (principal); E78.5 Hyperlipidemia, unspecified; E03.9 Hypothyroidism, unspecified; Z79.899 Other long term (current) drug therapy
CPT/HCPCS: 36415; 80053; 80061; 84436; 84443; 85027

== ENCOUNTER → 2021-12-31 | Outpatient (REF) | payer MEDICARE, SELFPAY ==
[2022-01-01 11:11] LABS: Mucous, Urine 0 SEEN /hpf (<or=2+)
[2022-01-01 11:29] LABS: Color, Urine Yellow (Yellow); Glucose, Dipstick Normal (Normal); Ketone-Dipstick 5 mg/dl (Negative); Leukocyte Esterase-Dipstick 500 /ul (Negative); Nitrite-Dipstick Negative (Negative); Occult Blood-Urine 25 /ul (Negative); Protein-Dipstick 15 mg/dl (Negative); Specific Gravity, Urine 1.025 (1.002-1.030); Urine Bilirubin Dipstick Negative (Negative); Urine Clarity Clear (Clear); Urine Urobilinogen Normal (Normal)
[2022-01-01 11:46] LABS: Bacteria 1+ /hpf (None Seen); Red Blood Cells-Urine 5-10 SEEN /hpf (0-5); Squamous Epithelial Cells - UA 5-10 SEEN /hpf (5-10); White Blood Cells 25-50 SEEN /hpf (0-5)
== END ==
PROVIDERS: PCP Family Medicine; Visit Provider Family Medicine
DX: R42 Dizziness and giddiness (principal); R53.83 Other fatigue
CPT/HCPCS: 81001; 87086; 87088

== ENCOUNTER 2022-06-24 21:31 | Emergency (ER) | payer MEDICARE, SELFPAY ==
[2022-06-24 21:32] VITALS: PULSE 91; RESP 16; TEMP 36.8; O2SAT 96; BMI 29.2
[2022-06-24 23:18] LABS: Mucous, Urine 0 SEEN /hpf (<or=2+); Squamous Epithelial Cells - UA 0 SEEN /hpf (5-10); White Blood Cells 0 SEEN /hpf (0-5)
--- NOTE | 2022-06-24 23:23 | EX.ED.DYSGE1 ---
HPI History of Present Illness Chief Complaint: Complaint Narrative Narrative: Patient is an 86-year-old female with past medical history of hypertension hyperlipidemia hypothyroidism paroxysmal atrial fibrillation and previous CVA currently on Eliquis. She states around 7 PM today she noticed some suprapubic abdominal pain and then when she would use the restroom noticed that it was bloody in nature. She states that it is from the bladder/urine and not the rectum or stool. She states that she is unsure if she is bleeding secondary to infection or from her Eliquis and with this comes in for evaluation [facility] Medical History Cough CVA (cerebral vascular accident) (11/16/17) Essential (primary) hypertension Forehead contusion GERD (gastroesophageal reflux disease) Hallucinations Hyperlipidemia Hypokalemia Hypothyroidism Left rib fracture Non-rheumatic aortic stenosis Nonsustained ventricular tachycardia PAF (paroxysmal atrial fibrillation) Secondary pulmonary arterial hypertension Skin tear of left upper extremity Home Medications metoprolol tartrate 50 mg tablet 50 mg PO BID BLOOD PRESSURE 05/13/14 [History Last Taken 08/31/20 08:00] calcium carbonate 600 mg-vitamin D3 20 mcg (800 unit) tablet 1 ea PO DAILY supplement 11/16/17 [History Last Taken 08/30/20 12:00] lncrrhjxnrs-[id number] C-Mn 500 mg-400 mg capsule 2 ea PO DAILY supplement 11/16/17 [History Last Taken 08/30/20 12:00] multivitamin 1 ea PO DAILY supplement 11/16/17 [History Last Taken 08/31/20 08:00] omeprazole magnesium 20 mg tablet,delayed release 20 mg PO DAILY acid reflux 11/16/17 [History Last Taken 08/31/20 08:00] atorvastatin 40 mg tablet 40 mg PO QHS cholesterol #30 tabs 12/12/17 [Rx Last Taken 08/30/20 21:00] biotin 10,000 mcg capsule 10,000 mcg PO DAILY health maintenance 02/04/20 [History Last Taken 08/31/20 08:00] omega-3 fatty acids 1,000 mg capsule (Fish Oil Concentrate) 1,000 mg PO BID health maintenance 02/04/20 [History Last Taken 08/30/20 08:00] triamcinolone acetonide 0.5 % topical cream 1 applic topical BID PRN Itching 08/31/20 [History Last Taken Unknown] acetaminophen 325 mg tablet 650 mg PO Q6H PRN PRN Pain Score 1-10/Temp > 100.7 F 09/01/20 [Rx Last Taken Unknown] albuterol sulfate 2.5 mg/3 mL (0.083 %) solution for nebulization 2.5 mg (3 mL) inhalation Q2H PRN PRN SOB/Wheezing 09/01/20 [Rx Last Taken Unknown] apixaban 2.5 mg tablet 2.5 mg PO BID blood thinner 09/01/20 [History Last Taken Unknown] furosemide 40 mg tablet 40 mg PO DAILY fluid pill 09/01/20 [History Last Taken Unknown] levothyroxine 50 mcg tablet 50 mcg PO DAILY thyroid 09/01/20 [History Last Taken Unknown] melatonin 3 mg tablet 3 mg PO QHS PRN PRN Insomnia 09/01/20 [Rx Last Taken Unknown] paroxetine HCl 10 mg tablet 10 mg PO DAILY mood 09/01/20 [History Last Taken Unknown] sennosides 8.6 mg-docusate sodium 50 mg tablet 2 tablet PO BID PRN PRN Constipation 09/01/20 [Rx Last Taken Unknown] gabapentin 100 mg capsule 100 mg PO BID 05/13/21 [History Last Taken Unknown] potassium chloride 20 mEq tablet,extended release 20 meq PO BID #180 tabs 08/05/21 [Rx Last Taken Unknown] cephalexin 500 mg capsule 500 mg PO TID 7 days #21 caps 06/25/22 [Rx Last Taken Unknown] Allergy/AdvReac Type Severity Reaction Status Date / Time adhesive Allergy Intermediate rash Verified 06/24/22 21:34 aspirin Allergy Hives Verified 06/24/22 21:34 tetanus immune globulin Allergy Rash Verified 06/24/22 21:34 sulfamethoxazole AdvReac Rash Verified 06/24/22 21:34 [From Bactrim] trimethoprim [From Bactrim] AdvReac Rash Verified 06/24/22 21:34 Family History (Reviewed 11/11/21 @ 14:47 by Monica De La Cruz [employer]GR[employer]HER, [employer]OTOGRAPHER-C) Mother Heart disease CVA (cerebral vascular accident) Surgical History (Reviewed 11/11/21 @ 14:47 by Monica De La Cruz [employer] PHOTOGRAPHER, [employer] PHOTOGRAPHER-C) History of cholecystectomy Social History Smoking Status: Never smoker alcohol intake: never caffeine: No ROS ROS ED Constitutional Constitutional ED: Denies chills or fever(s) ENT ENT ED: Denies sore throat Cardiovascular Cardiovascular: Denies chest pain Respiratory/Chest Respiratory/Chest: Denies cough or dyspnea Gastrointestinal Gastrointestinal: Reports abdominal pain; Denies diarrhea, nausea or vomiting Genitourinary Genitourinary ED: Reports dysuria and hematuria Musculoskeletal Musculoskeletal: Denies back pain or myalgias Integumentary Denies rash Neurologic Neurologic: Denies headache(s) or weakness Hematologic/Lymphatic Hematologic/Lymphatic: Reports easy bleeding and easy bruising EXAM Physical Exam Const Vital Signs: 06/24/22 21:32 06/25/22 00:17 Temperature 98.2 F 97.6 F L Temperature Source Temporal Temporal Pulse Rate 91 76 Respiratory Rate 16 18 Blood Pressure 139/67 H Blood Pressure Mean 91 Pulse Ox 96 96 Oxygen Delivery Method Room Air Room Air Positive well nourished and well developed General Appearance ED: well developed and pallor HEENT Reports moist mucous membranes Eyes PERRL and EOMs intact bilaterally General Eye ED: Yes pale conjunctiva Neck supple Resp normal respiratory effort and clear to auscultation bilaterally Cardio regular rate and regular rhythm GI non-distended GI Narrative: There is mild pain on palpation in the suprapubic region without voluntary guarding or rigidity. No pulsatile mass or fluid wave. No organomegaly to suggest a distended bladder or urinary retention Auscultation: normoactive bowel sounds Palpation: soft Narrative: There is no blood or active bleeding noted at the vaginal os. No abscess tumors or masses noted Extremity normal to inspection Neuro oriented x3 and CN's II-XII intact bilaterally Sensorium / Orientation: alert Psych mental status grossly normal Skin no rashes or lesions noted Skin Narrative: Capillary refills less than 3 seconds General Skin Exam: pallor MDM MDM MDM Narrative Medical decision making narrative: Patient presented to the ER afebrile with stable vitals and a history and exam most consistent with UTI which has led to hemorrhagic cystitis which has been worsened by her Eliquis use. Secondary to concern that she may need a blood transfusion or could be progressing to urosepsis or acute kidney injury elected to perform basic laboratory studies. Patient's white count is elevated but otherwise no signs of severe electrolyte derangement or acute kidney injury. Also her hemoglobin is above transfusion value. Therefore this time patient will be advised to hold her Eliquis for the next 3 days while antibiotics are prescribed but as she is not having signs of urosepsis acute kidney injury or need for transfusion she is otherwise safe for discharge. Lab Data Attestation: I reviewed the patient's lab results. Labs: Laboratory Results - last 24 hr 06/24/22 06/24/22 06/24/22 23:00 23:00 23:00 WBC 13.4 H RBC 5.15 Hgb 15.2 H Hct 48.2 H MCV 93.6 MCH 29.5 MCHC 31.5 L RDW Std Deviation 46.1 H RDW Coeff of Krissy 13.3 Plt Count 257 MPV 12.1 H Immature Gran % (Auto) 2.200 H Neut % (Auto) 70.2 H Lymph % (Auto) 14.6 L Mcdonough % (Auto) 10.0 Eos % (Auto) 2.2 Baso % (Auto) 0.8 Absolute Neuts (auto) 9.4 H Absolute Lymphs (auto) 1.95 Nucleated RBC % 0.1 PT 15.2 H INR 1.2 APTT 29.2 Sodium 141 Potassium 4.4 Chloride 108 H Carbon Dioxide 24.0 Anion Gap 9 BUN 17 Creatinine 0.95 Estim Creat Clear Calc 37.54 Est GFR (MDRD) Af Amer 71 Est GFR (MDRD) Non-Af 59 L BUN/Creatinine Ratio 17.8 Glucose 128 H Calcium 9.0 Urine Color Urine Clarity Urine pH Ur Specific [place] Urine Protein Urine Glucose (UA) Urine Ketones Urine Occult Blood Urine Nitrite Urine Bilirubin Urine Urobilinogen Ur Leukocyte Esterase Urine RBC Urine WBC Ur Squamous Epith Cells Urine Bacteria Urine Mucus 06/24/22 23:15 WBC RBC Hgb Hct MCV MCH MCHC RDW Std Deviation RDW Coeff of Krissy Plt Count MPV Immature Gran % (Auto) Neut % (Auto) Lymph % (Auto) Mcdonough % (Auto) Eos % (Auto) Baso % (Auto) Absolute Neuts (auto) Absolute Lymphs (auto) Nucleated RBC % PT INR APTT Sodium Potassium Chloride Carbon Dioxide Anion Gap BUN Creatinine Estim Creat Clear Calc Est GFR (MDRD) Af Amer Est GFR (MDRD) Non-Af BUN/Creatinine Ratio Glucose Calcium Urine Color Red Urine Clarity Turbid Urine pH 6.0 Ur Specific [place] 1.025 Urine Protein 500 H Urine Glucose (UA) Normal Urine Ketones Negative Urine Occult Blood 250 H Urine Nitrite Negative Urine Bilirubin Negative Urine Urobilinogen Normal Ur Leukocyte Esterase 25 H Urine RBC > 100 SEEN Urine WBC 0 SEEN Ur Squamous Epith Cells 0 SEEN Urine Bacteria 4+ Urine Mucus 0 SEEN Discharge Plan Triage Chief Complaint: Complaint ED Provider: Jaciel Bal Dx/Rx/DC Orders Clinical Impression: Acute hemorrhagic cystitis, Current use of prison anticoagulation, PAF (paroxysmal atrial fibrillation), Essential (primary) hypertension Instructions: ED Hematuria, UTIs Women Prescriptions: New cephalexin 500 mg capsule 500 mg PO TID 7 Days Qty: 21 0RF No Action omega-3 fatty acids [Fish Oil Concentrate] 1,000 mg capsule 1,000 mg PO BID biotin 10,000 mcg capsule 10,000 mcg PO DAILY gabapentin 100 mg capsule 100 mg PO BID potassium chloride 20 mEq tablet extended release 20 meq PO BID Qty: 180 3RF metoprolol tartrate 50 MG tablet 50 mg PO BID Label Comments: Blood Pressure and Heart Rate multivitamin 1 EACH tablet 1 ea PO DAILY [id number] C-Mn 1 EACH capsule 2 ea PO DAILY calcium carbonate-vitamin D3 1 EACH tablet 1 ea PO DAILY omeprazole magnesium 20 MG tablet,delayed release (DR/EC) 20 mg PO DAILY atorvastatin 40 MG tablet 40 mg PO QHS Qty: 30 0RF triamcinolone acetonide 1 APPLIC cream 1 applic TOPICAL BID PRN (Reason: Itching) acetaminophen 325 MG tablet 650 mg PO Q6H PRN PRN (Reason: Pain Score 1-10/Temp > 100.7 F) 0RF albuterol sulfate 2.5 MG/3 ML solution for nebulization 2.5 mg INHALATION Q2H PRN PRN (Reason: SOB/Wheezing) 0RF sennosides-docusate sodium 1 TABLET tablet 2 tablet PO BID PRN PRN (Reason: Constipation) 0RF melatonin 3 MG tablet 3 mg PO QHS PRN PRN (Reason: Insomnia) 0RF furosemide 40 MG tablet 40 mg PO DAILY paroxetine HCl 10 MG tablet 10 mg PO DAILY levothyroxine 50 MCG tablet 50 mcg PO DAILY Rx Instructions: 50 mcg PO every day except on Monday; apixaban 2.5 MG tablet 2.5 mg PO BID Primary Care Provider: Candis Hui Referrals: Candis Hui MD [Primary Care Provider] - Activity Restrictions/Additional Instructions: Please hold your Eliquis for the next 3 days secondary to the blood in your urine. Take your antibiotic as directed to help resolve your urinary tract infection and return to the ER should you have any further concerns or worsening of symptoms Disposition Disposition: Home, Self Care
[2022-06-24 23:27] LABS: Color, Urine Red (Yellow); Glucose, Dipstick Normal (Normal); Ketone-Dipstick Negative (Negative); Leukocyte Esterase-Dipstick 25 /ul (Negative); Nitrite-Dipstick Negative (Negative); Occult Blood-Urine 250 /ul (Negative); Protein-Dipstick 500 mg/dl (Negative); Specific Gravity, Urine 1.025 (1.002-1.030); Urine Bilirubin Dipstick Negative (Negative); Urine Clarity Turbid (Clear); Urine Urobilinogen Normal (Normal)
[2022-06-24 23:27] LABS: International Normalized Ratio 1.2; Prothrombin Time (Protime)PT. 15.2 SECONDS (11.7-14.9)
[2022-06-24 23:28] LABS: Partial Thromboplast Time 29.2 Seconds (24.1-36.2)
[2022-06-24 23:28] LABS: Bacteria 4+ /hpf (None Seen); Red Blood Cells-Urine > 100 SEEN /hpf (0-5)
[2022-06-24 23:29] LABS: Absolute Lymphocyte Count 1.95 X10^3/uL (0.83-4.51); Absolute Neutrophil Count 9.4 X10^3/uL (2.0-7.7); Basophil# 0.11 X10^3/uL; Basophil% 0.8 % (0-1); Eosinophils% 2.2 % (0-5); Hematocrit 48.2 % (37-47); Hemoglobin 15.2 g/dL (12.0-15.0); Lymphocyte # 1.95 X10^3/ul (0.83-4.51); Lymphocyte % 14.6 % (19-41); Mean Corp Hgb Conc 31.5 g/dL (32-36); Mean Corpuscular Hgb 29.5 pg (27.0-32.0); Mean Corpuscular Volume 93.6 fL (81-99); Mean Platelet Vol. 12.1 fl (6.2-12.0); Monocyte# 1.34 X10^3/uL; NRBC Flagged by Analyzer 0.1 % (0-5); Neutrophil # 9.39 X10^3/uL (2.7-7.7); Neutrophil % 70.2 % (47-70); Platelet Count 257 K/mm3 (150-450); RBC Distribution Width CV 13.3 % (11.6-14.6); RBC Distribution Width SD 46.1 fl (35.1-43.9); Red Blood Count 5.15 M/mm3 (4.2-5.4); White Blood Count 13.4 K/mm3 (4.4-11.0)
[2022-06-24 23:32] LABS: Anion Gap 9 (5-15); BUN 17 mg/dL (7-18); BUN/Creat Ratio 17.8 RATIO (10-20); Chloride 108 mmol/L (98-107); Creatinine, Serum 0.95 mg/dL (0.55-1.02); EST Glomerular Filtration Rate 59 mL/min (>60); Est Glom Filt Rate - Afr Amer 71 mL/min (>60); Estimated Creatinine Clearance 37.54 ml/min; Glucose 128 mg/dL (74-106); Potassium 4.4 mmol/L (3.5-5.1); Sodium Level 141 mmol/L (136-145)
[2022-06-25] MEDS: Ceftriaxone 1 GM/50 ML BAG IV (00:14)
[2022-06-25 00:17] VITALS: BP 139/67; PULSE 76; RESP 18; TEMP 36.4; O2SAT 96
--- NOTE | 2022-06-25 00:54 | ED.RN ---
attempted to call report to [place] but their phone system is not working. pt with family member, understanding of dc instructions.
== END 2022-06-25 00:55 | disposition home or self-care (01) ==
PROVIDERS: Emergency Provider Emergency Medicine; PCP Family Medicine; Visit Provider Emergency Medicine
DX: N30.01 Acute cystitis with hematuria (principal); I48.0 Paroxysmal atrial fibrillation; I10 Essential (primary) hypertension; E78.5 Hyperlipidemia, unspecified; E03.9 Hypothyroidism, unspecified; Z79.01 Long term (current) use of anticoagulants; Z79.899 Other long term (current) drug therapy; Z86.73 Personal history of transient ischemic attack (TIA), and cerebral infarction without residual deficits
CPT/HCPCS: 80048; 81001; 85025; 85610; 85730; 87077; 87086; 87088; 87186; 96365; 99285; J7050; A4216

== ENCOUNTER 2022-07-06 06:22 | Emergency (ER) | payer MEDICARE, SELFPAY ==
[2022-07-06 06:24] VITALS: PULSE 78; RESP 15; TEMP 36.7; O2SAT 96; BMI 26.4
[2022-07-06 06:27] VITALS: BP 146/82; PULSE 90; RESP 14; TEMP 36.6; O2SAT 95
--- NOTE | 2022-07-06 07:10 | ED.VIS.BACK ---
HPI History of Present Illness Chief Complaint: Back Detail of Chief Complaint: Fell 1 week ago to [facility] complaining of right lower back pain. Informant: patient Onset/Context/Timing Onset: Days Context: Sudden Onset Injury: twisting, direct trauma and fall Timing: Continuous Quality: Dull and Aching Location: Lumbar Current Severity: Moderate Maximum Severity: Moderate Worsened by: improves with Movement Relieved by: Remaining Still Associated Symptoms Associated Symptoms: Negative for Numbness, Tingling, Radiation to Right Leg, Radiation to Left Leg, Unable to Transfer, Urinary Retention, Urinary Incontinence, Constipation or Fecal Incontinence Narrative Narrative: 86-year-old female lives at a local extended care facility. Has a history of A-fib on Eliquis also hypertension and prior stroke. Patient reportedly lost her balance fell backwards approximately a week ago last Monday. Said she twisted as she went down and has had low back pain on the right since that time. Denies any weakness or numbness in her legs. Worse with movement. No fever. No headache. No other complaints. Said prior to the fall she was not have any significant back problems. Prior similar symptoms: No Recent Illness/Hospitalization: No PFSH PFS Medical History Cough CVA (cerebral vascular accident) (11/16/17) Essential (primary) hypertension Forehead contusion GERD (gastroesophageal reflux disease) Hallucinations Hyperlipidemia Hypokalemia Hypothyroidism Left rib fracture Non-rheumatic aortic stenosis Nonsustained ventricular tachycardia PAF (paroxysmal atrial fibrillation) Secondary pulmonary arterial hypertension Skin tear of left upper extremity Home Medications metoprolol tartrate 50 mg tablet 50 mg PO BID BLOOD PRESSURE 05/13/14 [History Last Taken 08/31/20 08:00] calcium carbonate 600 mg-vitamin D3 20 mcg (800 unit) tablet 1 ea PO DAILY supplement 11/16/17 [History Last Taken 08/30/20 12:00] vtquevzgndd-dinvuxwhn-jhr C-Mn 500 mg-400 mg capsule 2 ea PO DAILY supplement 11/16/17 [History Last Taken 08/30/20 12:00] multivitamin 1 ea PO DAILY supplement 11/16/17 [History Last Taken 08/31/20 08:00] omeprazole magnesium 20 mg tablet,delayed release 20 mg PO DAILY acid reflux 11/16/17 [History Last Taken 08/31/20 08:00] atorvastatin 40 mg tablet 40 mg PO QHS cholesterol #30 tabs 12/12/17 [Rx Last Taken 08/30/20 21:00] biotin 10,000 mcg capsule 10,000 mcg PO DAILY health maintenance 02/04/20 [History Last Taken 08/31/20 08:00] omega-3 fatty acids 1,000 mg capsule (Fish Oil Concentrate) 1,000 mg PO BID health maintenance 02/04/20 [History Last Taken 08/30/20 08:00] triamcinolone acetonide 0.5 % topical cream 1 applic topical BID PRN Itching 08/31/20 [History Last Taken Unknown] acetaminophen 325 mg tablet 650 mg PO Q6H PRN PRN Pain Score 1-10/Temp > 100.7 F 09/01/20 [Rx Last Taken Unknown] albuterol sulfate 2.5 mg/3 mL (0.083 %) solution for nebulization 2.5 mg (3 mL) inhalation Q2H PRN PRN SOB/Wheezing 09/01/20 [Rx Last Taken Unknown] apixaban 2.5 mg tablet 2.5 mg PO BID blood thinner 09/01/20 [History Last Taken Unknown] furosemide 40 mg tablet 40 mg PO DAILY fluid pill 09/01/20 [History Last Taken Unknown] levothyroxine 50 mcg tablet 50 mcg PO DAILY thyroid 09/01/20 [History Last Taken Unknown] melatonin 3 mg tablet 3 mg PO QHS PRN PRN Insomnia 09/01/20 [Rx Last Taken Unknown] paroxetine HCl 10 mg tablet 10 mg PO DAILY mood 09/01/20 [History Last Taken Unknown] sennosides 8.6 mg-docusate sodium 50 mg tablet 2 tablet PO BID PRN PRN Constipation 09/01/20 [Rx Last Taken Unknown] gabapentin 100 mg capsule 100 mg PO BID 05/13/21 [History Last Taken Unknown] cephalexin 500 mg capsule 500 mg PO TID 7 days #21 caps 06/25/22 [Rx Last Taken Unknown] potassium chloride 20 mEq tablet,extended release 20 meq PO BID #180 tabs 07/01/22 [Rx Last Taken Unknown] metaxalone 800 mg tablet 800 mg PO TID PRN muscle pain #20 tabs 07/06/22 [Rx Last Taken Unknown] Allergy/AdvReac Type Severity Reaction Status Date / Time adhesive Allergy Intermediate rash Verified 06/24/22 21:34 aspirin Allergy Hives Verified 06/24/22 21:34 tetanus immune globulin Allergy Rash Verified 06/24/22 21:34 sulfamethoxazole AdvReac Rash Verified 06/24/22 21:34 [From Bactrim] trimethoprim [From Bactrim] AdvReac Rash Verified 06/24/22 21:34 Family History Mother Heart disease CVA (cerebral vascular accident) Surgical History History of cholecystectomy Social History Smoking Status: Never smoker alcohol intake: never caffeine: No ROS ROS ED ROS Narrative Denies recent illness. Review of Systems ROS Unobtainable: Denies due to encephalopathy Constitutional Constitutional ED: Denies chills or fever(s) Eyes Eyes: Denies blurry vision ENT ENT ED: Denies ear pain Cardiovascular Cardiovascular: Denies chest pain or palpitations Respiratory/Chest Respiratory/Chest: Denies dyspnea Gastrointestinal Gastrointestinal: Denies abdominal pain Genitourinary Genitourinary ED: Denies dysuria or hematuria Musculoskeletal Musculoskeletal: Denies arthralgias Integumentary Denies abscess or Abrasions Neurologic Neurologic: Denies headache(s) Psychiatric Psychiatric: Denies anxiety or depression Endocrine Endocrinology: Denies cold intolerance Hematologic/Lymphatic Hematologic/Lymphatic: Denies easy bleeding Allergic/Immunologic Allergic/Immunologic ED: Denies mouth swelling or tongue swelling EXAM Physical Exam Narrative Exam Narrative: 86-year-old female no acute distress. Lying in bed. Vital signs are stable afebrile. H EENT exam unremarkable atraumatic. Pupils round reactive light. No tenderness to his scalp. C-spine nontender. Trachea midline. Lungs clear. Heart irregular rhythm. Abdomen soft nontender. Moving all 4 extremities. Nontender no deformity. 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 Normal dorsi plantarflexion. Back she has tenderness over her right. Lumbar soft tissue and iliac crest. Also mildly over the lower lumbar spine. There is no signs of trauma. There is no ecchymosis or bruising. No contusions or abrasions. Neurologically she is awake and alert with no focal motor deficits. Const Vital Signs: 07/06/22 06:24 07/06/22 06:27 Temperature 98.1 F 97.8 F Temperature Source Temporal Temporal Pulse Rate 78 90 Respiratory Rate 15 14 Blood Pressure 146/82 H Blood Pressure Mean 103 Pulse Ox 96 95 Oxygen Delivery Method Room Air Room Air Positive well nourished and well developed; Negative for obese, cachectic, contractures or unkempt General Appearance ED: well developed and NAD; Negative for unkempt, cachectic, contractures or pallor Nutritional Appearance: Negative for cachectic or obese HEENT Reports moist mucous membranes; Denies dry mucous membranes Negative for trauma or tenderness Mouth ED: No dry mucous membranes Mouth: No dry mucous membranes Eyes PERRL and EOMs intact bilaterally General Eye ED: Negative for pale conjunctiva or scleral icterus Neck no lymphadenopathy, supple and no JVD General: Negative for tenderness Thyroid: Negative for other Resp normal respiratory effort and clear to auscultation bilaterally Effort and Inspection: Negative for pain with movement Auscultation: Negative for rales or rhonchi Cardio Negative for regular rate or regular rhythm Rhythm: abnormal rhythm GI normal to inspection, nondistended, normoactive bowel sounds, soft to palpation, non-tender, non-distended and no masses Inspection: Negative for abdominal distention Palpation: Negative for tender or guarding Back/Spine normal to inspection and no thoracic nor lumbar tenderness General Back: Negative for CVA tenderness Cervical Spine: Negative for cervical spine tenderness Thoracic Spine / Upper Back: Negative for paraspinal muscle tenderness Extremity normal to inspection and no clubbing, cyanosis or edema General Extremety ED: Negative for edema or tenderness General Extremity: Negative for edema Neuro oriented x3 Sensorium / Orientation: alert; Negative for confused, lethargic or stuporous Motor Exam: strength 5/5 throughout Psych mental status grossly normal Appearance: Negative for unkempt Attitude: No agitated Mood & Affect: Negative for depressed, sad or tearful Skin no rashes or lesions noted and no wounds General Skin Exam: Negative for jaundice or pallor Lesions: No lesion noted Rashes: No rashes noted Trauma: Negative for abrasion Wounds: Negative for wounds noted MDM MDM MDM Narrative Medical decision making narrative: 86-year-old female status post fall a week ago complaining of right lower back pain. Exam benign other than reproducible tenderness. X-rays of her lumbar spine and pelvis will be obtained. No signs of cauda equina. No signs of any significant injury. Repeat exam at 8:10 AM I went over the x-rays with the patient. She understands there is no acute bony injury. But she has significant long-term chronic changes to her lower back. I believe most of her pain is paravertebral and involved with the soft tissue and muscle. She will be placed on Skelaxin. Hot shower and warm bath. Massage. Consistent with a lumbar strain. Radiography Diagnostic Testing: Clinical Impression(s) from Imaging Studies Lumbar Spine X-Ray 07/06/22 07:30 IMPRESSION: 1. Chronic degenerative changes. Chronic S-shaped scoliosis and upper lumbar kyphosis. 2. No visualized acute fracture or subluxation. Sensitivity for acute fracture is limited by the kyphoscoliosis. Electronically Signed: Liam Miller MD at 7:43 EST , Pelvis X-Ray 07/06/22 07:30 IMPRESSION: No evidence of displaced pelvic fracture. Electronically Signed: Liam Miller MD at 7:46 EST , Lumbar spine x-ray 2 views interpreted myself the radiologist shows severe chronic changes lumbar spine primarily L2-3 for have old compression fractures and arthritis. These are not new. There is also kyphosis and scoliosis. Pelvis x-ray shows chronic changes no acute fracture both films were interpreted both by myself and the radiologist. Discharge Plan Triage Chief Complaint: Back ED Provider: Tony Chiang Dx/Rx/DC Orders Clinical Impression: Fall, Acute lumbar myofascial strain Instructions: ED Back Sprain/Strain Prescriptions: New metaxalone 800 mg tablet 800 mg PO TID PRN (Reason: muscle pain) Qty: 20 0RF No Action omega-3 fatty acids [Fish Oil Concentrate] 1,000 mg capsule 1,000 mg PO BID biotin 10,000 mcg capsule 10,000 mcg PO DAILY gabapentin 100 mg capsule 100 mg PO BID metoprolol tartrate 50 MG tablet 50 mg PO BID Label Comments: Blood Pressure and Heart Rate multivitamin 1 EACH tablet 1 ea PO DAILY fjeexmqoepw-qvcezvbko-fye C-Mn 1 EACH capsule 2 ea PO DAILY calcium carbonate-vitamin D3 1 EACH tablet 1 ea PO DAILY omeprazole magnesium 20 MG tablet,delayed release (DR/EC) 20 mg PO DAILY atorvastatin 40 MG tablet 40 mg PO QHS Qty: 30 0RF triamcinolone acetonide 1 APPLIC cream 1 applic TOPICAL BID PRN (Reason: Itching) acetaminophen 325 MG tablet 650 mg PO Q6H PRN PRN (Reason: Pain Score 1-10/Temp > 100.7 F) 0RF albuterol sulfate 2.5 MG/3 ML solution for nebulization 2.5 mg INHALATION Q2H PRN PRN (Reason: SOB/Wheezing) 0RF sennosides-docusate sodium 1 TABLET tablet 2 tablet PO BID PRN PRN (Reason: Constipation) 0RF melatonin 3 MG tablet 3 mg PO QHS PRN PRN (Reason: Insomnia) 0RF furosemide 40 MG tablet 40 mg PO DAILY paroxetine HCl 10 MG tablet 10 mg PO DAILY levothyroxine 50 MCG tablet 50 mcg PO DAILY Rx Instructions: 50 mcg PO every day except on Monday; apixaban 2.5 MG tablet 2.5 mg PO BID cephalexin 500 mg capsule 500 mg PO TID 7 Days Qty: 21 0RF potassium chloride 20 mEq tablet extended release 20 meq PO BID Qty: 180 3RF Primary Care Provider: Candis Hui Referrals: Candis Hui MD [Primary Care Provider] - 1 Week if not improving Activity Restrictions/Additional Instructions: Tylenol for pain. Skelaxin 1 pill 3 times a day for muscle strain of her lower back. Hot shower, warm bath and massage to the lower back. If not improving follow-up with her primary care physician in 1 week. Disposition Disposition: Home, Self Care
--- NOTE | 2022-07-06 07:30 | RAD_ITS ---
EXAM: XR PELVIS, 1 OR 2 VIEWS CLINICAL INDICATION: fall fall TECHNIQUE: Frontal view of the pelvis. This report was created using [employer] report generation technology. COMPARISON: CT scan abdomen and pelvis 08/31/2020. FINDINGS: BONES/JOINTS: Unremarkable. No displaced fracture. No destructive or sclerotic lesions. Note that overlapping bowel shadows may however obscure fine detail. Sacroiliac joints are unremarkable. No widening of the pubic symphysis. The articular structures are unremarkable. SOFT TISSUES: Unremarkable. No soft tissue swelling or gas. RAD/Pelvis 1 or 2 Views IMPRESSION: No evidence of displaced pelvic fracture. Electronically Signed: Liam Miller MD at 7:46 EST Reading Location ID and State: [facility] / [place] , Service support ,
--- NOTE | 2022-07-06 07:30 | RAD_ITS ---
EXAM: XR LUMBOSACRAL SPINE, 2 OR 3 VIEWS CLINICAL INDICATION: fall fall TECHNIQUE: Frontal and lateral views of the lumbar spine and sacrum. This report was created using [employer] report generation technology. COMPARISON: CT scan abdomen and pelvis 08/31/2020. FINDINGS: VERTEBRAE: There is severe dextroscoliosis of the lower lumbar spine and levoscoliosis of the upper spine. There is reversal of the normal lordotic curvature within the mid and upper spine. Similar findings were also present on the previous CT scan. There is multilevel spondylosis. Preserved vertebral body height. No fracture. No significant facet arthropathy. DISC SPACES: There is multilevel disc space narrowing. GASTROINTESTINAL TRACT: Unremarkable as visualized. Included bowel gas pattern is non-obstructive. RAD/Lumbar Spine 2 or 3 Views IMPRESSION: 1. Chronic degenerative changes. Chronic S-shaped scoliosis and upper lumbar kyphosis. 2. No visualized acute fracture or subluxation. Sensitivity for acute fracture is limited by the kyphoscoliosis. Electronically Signed: Liam Miller MD at 7:43 EST ,
[2022-07-06] MEDS: Metaxalone 800 MG Tablet PO (08:48)
== END 2022-07-06 09:17 | disposition home or self-care (01) ==
PROVIDERS: Emergency Provider Emergency Medicine; PCP Family Medicine; Visit Provider Emergency Medicine
DX: S39.012A Strain of muscle, fascia and tendon of lower back, initial encounter (principal); I48.0 Paroxysmal atrial fibrillation; Z86.73 Personal history of transient ischemic attack (TIA), and cerebral infarction without residual deficits; W19.XXXA Unspecified fall, initial encounter; Z79.01 Long term (current) use of anticoagulants
CPT/HCPCS: 72100; 72170; 99284

== ENCOUNTER 2022-07-30 16:21 | Inpatient (IN) | payer MEDICARE, SELFPAY ==
[2022-07-30 16:22] VITALS: BP 159/115; PULSE 70; RESP 18; TEMP 36.3; O2SAT 93; BMI 25.8
--- NOTE | 2022-07-30 16:59 | CT_ITS ---
INDICATION: trauma EXAMINATION: CT CERVICAL SPINE - CT Spine Cervical W/O Contrast Injection TECHNIQUE: Helically acquired images were obtained of the cervical spine. 2D reformatted images were reviewed. A radiation dose optimization technique was used for this scan. IV Contrast dosage and agent: None. COMPARISON: None. FINDINGS: VERTEBRAE: No fracture or traumatic subluxation. No discrete lytic or blastic abnormality. Normal alignment. Normal craniocervical junction and cervicothoracic junction. DISCS and SPINAL CANAL: No demonstrated fracture. C2-3: Normal disc height and morphology. Normal central canal. Foramina are patent. C3-4: Normal disc height and morphology. 3 mm degenerative anterolisthesis. Normal central canal. Severe left foraminal stenosis due to uncinate and facet hypertrophy. C4-5: Normal disc height and morphology. Normal central canal. Foramina are patent. Marked left facet hypertrophy. C5-6: Disc space narrowing. Sclerotic endplate changes. Mild spondylotic bar. No canal stenosis. Severe foraminal stenosis due to uncinate hypertrophy. C6-7: Normal disc height and morphology. Normal central canal. Mild left foraminal encroachment due to uncinate hypertrophy. C7-T1: Normal disc height and morphology. 3 mm degenerative anterolisthesis. Normal central canal. Foramina are patent NECK SOFT TISSUES: No prevertebral soft tissue swelling. There is no cervical adenopathy. LUNG APICES: Clear. CT/Spine Cervical without Contras IMPRESSION: No acute trauma. Degenerative listhesis at C3-4 and C7-T1. Mild degenerative changes detailed above. Electronically Signed: Cheryl Soto MD at 19:08 EST Reading Location ID and State: [id number] / Tel , Service support ,
--- NOTE | 2022-07-30 16:59 | CT_ITS ---
STUDY: CT BRAIN WITHOUT CONTRAST REASON FOR EXAM: Female, 86 years old. trauma RADIATION DOSAGE (If Supplied By Facility): CTDIvol = ( 44.99 ) mGy, DLP = ( 846.73 ) mGycm TECHNIQUE: Transaxial CT imaging of the brain was performed without administration of intravenous contrast material. Individualized dose optimization techniques were used for this CT. COMPARISON: 08/31/2020. FINDINGS: Normal soft tissue structures. Normal calvarium. There is mild cerebral atrophy with widening of the extra-axial spaces and ventricular dilatation. There are areas of decreased attenuation within the white matter tracts of the supratentorial brain, consistent with microvascular disease changes. There is no intracranial hemorrhage. There are no findings of an acute ischemic infarction. Fluid level in the left maxillary sinus. Mucosal thickening in the right ethmoid sinus. CT/Brain/Head without Contrast IMPRESSION: Acute left maxillary sinusitis. No acute intracranial findings. Microvascular ischemia. Atrophy. Electronically Signed: Cheryl Soto MD at 18:43 EST Reading Location ID and State: [id number] / Tel , Service support ,
--- NOTE | 2022-07-30 17:06 | CT_ITS ---
INDICATION: back pain EXAMINATION: CT LUMBAR SPINE - CT Spine Lumbar W/O Contrast Injection TECHNIQUE: Helically acquired images were obtained of the lumbar spine. 2D reformats were reviewed. A radiation dose optimization technique was used for this scan. IV Contrast dosage and agent: None. COMPARISON: X-ray 07/06/2022. FINDINGS: VERTEBRAE: Severe lumbar levoscoliosis. Horizontal L1 fracture, acute to subacute. Remaining vertebral body heights are maintained. DISCS and SPINAL CANAL: T12-L1: Normal disc height and morphology. Normal bilateral facet joints. Normal central canal. Normal bilateral lateral recesses. Bilateral foraminal encroachment. L1-2: Normal disc height and morphology. Facet hypertrophy. Normal central canal. Normal bilateral lateral recesses. Normal intervertebral neural foramina. L2-3: Normal disc height and morphology. Normal bilateral facet joints. Normal central canal. Normal bilateral lateral recesses. Normal intervertebral neural foramina. L3-4: Disc space narrowing. Vacuum phenomenon. Canal stenosis due to scoliosis and facet hypertrophy. Right paracentral and foraminal disc protrusion. L4-5: Normal disc height and morphology. Normal bilateral facet joints. Normal central canal. Normal bilateral lateral recesses. Normal intervertebral neural foramina. L5-S1: Disc space narrowing. Normal bilateral facet joints. Normal central canal. Normal bilateral lateral recesses. Foraminal stenosis due to spurring. VISUALIZED ABDOMEN: Visualized abdominal aorta is not dilated. Moderate hiatal hernia. CT/Spine Lumbar without Contrast IMPRESSION: Acute to subacute L1 fracture. Severe levoscoliosis. L3-4 canal stenosis and right paracentral disc protrusion. Hiatal hernia. Electronically Signed: Cheryl Soto MD at 19:22 EST Reading Location ID and State: [id number] / Tel , Service support ,
--- NOTE | 2022-07-30 17:14 | EDS_ITS ---
HPI <CEFERINO Dias - Last Filed: 07/30/22 20:41> History of Present Illness Chief Complaint: Fall Narrative Narrative: Patient is a 86-year-old female who presents to the emergency department after mechanical fall striking the back of her head, injuring her lower back. Patient is currently on Eliquis for paroxysmal atrial fibrillation, she has other med ical history of CVA, hypertension, lipidemia. Patient states that she was staying there, lost her balance falling backward striking her head on the dresser. She did arrive by ambulance. Patient denies any LOC. Patient denies any other injury. Patient complains of pain to her back of her head as well as her lower back. PFS <CEFERINO Dias - Last Filed: 07/30/22 20:41> [facility] Medical History (Updated 07/30/22 @ 22:09 by Shari Rangel) Anxiety and depression CVA (cerebral vascular accident) (11/16/17) Essential (primary) hypertension GERD (gastroesophageal reflux disease) Hyperlipidemia Hypothyroidism Non-rheumatic aortic stenosis Nonsustained ventricular tachycardia PAF (paroxysmal atrial fibrillation) Rib fracture Secondary pulmonary arterial hypertension Vascular dementia Home Medications metoprolol tartrate 50 mg tablet 50 mg PO BID BLOOD PRESSURE 05/13/14 [History Last Taken 08/31/20 08:00] multivitamin 1 ea PO DAILY supplement 11/16/17 [History Last Taken 08/31/20 08:00] omeprazole magnesium 20 mg tablet,delayed release 20 mg PO DAILY acid reflux 11/16/17 [History Last Taken 08/31/20 08:00] atorvastatin 40 mg tablet 40 mg PO QHS cholesterol #30 tabs 12/12/17 [Rx Last Taken 08/30/20 21:00] biotin 10,000 mcg capsule 10,000 mcg PO DAILY health maintenance 02/04/20 [History Last Taken 08/31/20 08:00] omega-3 fatty acids 1,000 mg capsule (Fish Oil Concentrate) 1,000 mg PO BID health maintenance 02/04/20 [History Last Taken 08/30/20 08:00] triamcinolone acetonide 0.5 % topical cream 1 applic topical BID PRN Itching 08/31/20 [History Last Taken Unknown] acetaminophen 325 mg tablet 650 mg PO Q6H PRN PRN Pain Score 1-10/Temp > 100.7 F 09/01/20 [Rx Last Taken Unknown] albuterol sulfate 2.5 mg/3 mL (0.083 %) solution for nebulization 2.5 mg (3 mL) inhalation Q2H PRN PRN SOB/Wheezing 09/01/20 [Rx Last Taken Unknown] apixaban 2.5 mg tablet 2.5 mg PO BID blood thinner 09/01/20 [History Last Taken Unknown] furosemide 40 mg tablet 40 mg PO DAILY fluid pill 09/01/20 [History Last Taken Unknown] levothyroxine 50 mcg tablet 50 mcg PO DAILY thyroid 09/01/20 [History Last Taken Unknown] melatonin 3 mg tablet 3 mg PO QHS PRN PRN Insomnia 09/01/20 [Rx Last Taken Unknown] gabapentin 100 mg capsule 100 mg PO BID pain 05/13/21 [History Last Taken Unknown] cephalexin 500 mg capsule 500 mg PO TID 7 days #21 caps 06/25/22 [Rx Last Taken Unknown] metaxalone 800 mg tablet 800 mg PO TID PRN muscle pain #20 tabs 07/06/22 [Rx Last Taken Unknown] bisacodyl 5 mg tablet,delayed release 10 mg PO DAILY PRN Constipation 07/30/22 [History Last Taken Unknown] calcium citrate 200 mg (950 mg) tablet 600 mg PO DAILY health 07/30/22 [History Last Taken Unknown] fluticasone propionate 50 mcg/actuation nasal spray,suspension 1 spray intranasal DAILY PRN allergies 07/30/22 [History Last Taken Unknown] glucosamine-chondroitin 250 mg-200 mg tablet (Osteo Bi-Flex) 2 tab PO BID arthritis 07/30/22 [History Last Taken Unknown] lidocaine 4 % topical patch 1 patch topical BID PRN Pain 07/30/22 [History Last Taken Unknown] meclizine 12.5 mg tablet 12.5 mg PO BID PRN dizziness and giddiness 07/30/22 [History Last Taken Unknown] methyl salicylate 15 %-menthol 10 % topical cream 1 applic topical Q4H PRN Pain 07/30/22 [History Last Taken Unknown] potassium chloride 20 mEq tablet,extended release 20 meq PO BID hypokalemia 07/30/22 [History Last Taken Unknown] sertraline 100 mg tablet 100 mg PO DAILY depression 07/30/22 [History Last Taken Unknown] tramadol 50 mg tablet 50 mg PO Q6H PRN PRN Pain 07/30/22 [History Last Taken Unknown] Allergy/AdvReac Type Severity Reaction Status Date / Time adhesive Allergy Intermediate rash Verified 07/30/22 22:16 aspirin Allergy Hives Verified 07/30/22 22:16 tetanus immune globulin Allergy Hives Verified 07/30/22 22:16 lidocaine AdvReac Rash Verified 07/30/22 22:23 sulfamethoxazole AdvReac Rash Verified 07/30/22 22:16 [From Bactrim] trimethoprim [From Bactrim] AdvReac Rash Verified 07/30/22 22:16 Family History (Updated 07/30/22 @ 21:[address] Estela Hutchinson MD) Mother Heart disease CVA (cerebral vascular accident) Father Kidney disease Surgical History (Updated 07/30/22 @ 21:[address] Estela Hutchinson MD) History of cholecystectomy S/P breast biopsy Social History (Updated 07/30/22 @ 20:[address] Estela Hutchinson MD) housing: assisted living facility Smoking Status: Never smoker alcohol intake: never substance use type: does not use caffeine: No ROS <CEFERINO Dias - Last Filed: 07/30/22 20:41> ROS ED ROS Narrative Constitutional: Negative for fever, chills, weight loss, weakness Eyes: Negative for vision loss, vision change, double vision ENT: Negative for any sore throat, ear pain, congestion Cardiovascular: Negative for any chest pain, tightness, palpitations Respiratory: Negative for any cough, sputum production, hemoptysis, dyspnea, dyspnea on exertion, orthopnea Gastrointestinal: Negative for any abdominal pain, nausea, vomiting, diarrhea, constipation, blood in stool, blood in vomit : Negative for any urinary frequency, dysuria, retention, blood in urine Muscle skeletal: Negative for any muscle joint pain, stiffness, myalgias, arthra lgias, neck pain. Positive for lower back pain Neurological: Negative for any syncope, numbness or tingling, dizziness. Positive for headache Skin: Negative for any rashes, lumps, itching, abrasions, lacerations Psychiatric: Negative for any depression, anxiety, stress, suicidal ideation, homicidal ideation Hematologic: Negative for any easy bruising, excessive bruising, easy bleeding Allergies: Negative for any eczema, hives, rash EXAM <CEFERINO Dias - Last Filed: 07/30/22 20:41> Physical Exam Narrative Exam Narrative: Vital signs reviewed. HEET: Head normocephalic atraumatic, TMs clear bilaterally. Posterior pharynx is clear, moist mucous membranes. Nares clear bilaterally. Pupils are equal round reactive to light. Negative for any hemotympanum, negative for any septal hematoma, no sky sign. Slight hematoma to the occiput. No signs of laceration. Neck: Supple with no lymphadenopathy or tenderness. No signs of meningismus, negative jolt sign. Cardiac: Regular rate and rhythm no murmurs gallops or rubs, equal peripheral pulses bilaterally. Respiratory: Lungs clear to auscultation bilaterally. No chest tenderness. Abdomen: Soft, nontender, nondistended. No abdominal bruit or pulsatile masses. No hepatosplenomegaly Extremities: No peripheral edema, no signs of gross trauma or deformity. Active full range of motion of all extremities. Patient is able to flex bilateral legs passively, this only causes pain to her lower back. Neuro: Cranial nerves II through XII intact, no focal neurological deficits. Skin: Clean dry and intact with no rash, purpura, petechiae, vesicles or pustules. Backs/flank: No CVA tenderness, no deformity. Patient did have some lower back pain, worsening midline, concerning for any compression fracture secondary to the fall. Psych: Normal mood and affect. No SI, HI or acute psychosis. Const Vital Signs: 07/30/22 16:22 Temperature 97.4 F L Temperature Source Oral Pulse Rate 70 Respiratory Rate 18 Blood Pressure 159/115 H Blood Pressure Mean 129 Pulse Ox 93 Oxygen Delivery Method Room Air Positive well nourished and well developed General Appearance ED: well developed Image ED - Body Diagram Man: 1. pain <Dr. Jung Lemon, DO - Last Filed: 07/30/22 22:28> Physical Exam Const Vital Signs: 07/30/22 16:22 Temperature 97.4 F L Temperature Source Oral Pulse Rate 70 Respiratory Rate 18 Blood Pressure 159/115 H Blood Pressure Mean 129 Pulse Ox 93 Oxygen Delivery Method Room Air MDM <CEFERINO Dias - Last Filed: 07/30/22 20:41> MDM Radiography Diagnostic Testing: Clinical Impression(s) from Imaging Studies Brain CT 07/30/22 16:59 IMPRESSION: Acute left maxillary sinusitis. No acute intracranial findings. Microvascular ischemia. Atrophy. Electronically Signed: Cheryl Soto MD at 18:43 EST Reading Location ID and State: [place] / Tel , Service support , Cervical Spine CT 07/30/22 16:59 IMPRESSION: No acute trauma. Degenerative listhesis at C3-4 and C7-T1. Mild degenerative changes detailed above. Electronically Signed: Cheryl Soto MD at 19:08 EST Reading Location ID and State: [place] / Tel , Service support , Lumbar Spine CT 07/30/22 17:06 IMPRESSION: Acute to subacute L1 fracture. Severe levoscoliosis. L3-4 canal stenosis and right paracentral disc protrusion. Hiatal hernia. Electronically Signed: Cheryl Soto MD at 19:22 EST Reading Location ID and State: [place] / Tel , Service support , Treatment and Re-Evaluation :: All radiologic examinations were read, reviewed by the emergency department attending. From these reads, a plan of care will be put in place. Patient is alert, patient appears to be in mild discomfort secondary to back pain. Patient had a mechanical fall striking the back of her head, landing on her buttocks injuring her lower lumbar spine. Patient received a tramadol however this was insufficient for pain control, patient received 4 mg of IM morphine. On reassessment, she did feel better. Differential diagnosis include subdural hematoma, lumbar strain, and hip fracture.Patient received CT scans of the brain concerning for any bleeding, this was negative and showed no acute intracranial findings. Patient's cervical spine showed no acute trauma. Patient's CT of the lumbar spine showed an acute to subacute L1 fracture. There is no compression. No loss of height. However this was consistent with the patient's pain. After the IM morphine, the patient was feeling better, she will have a road test to see if she is able to ambulate with a walker because she does live in assisted living. Patient was able to get up and use the walker however per the nurse, the patient was struggling poorly, the patient was very out of breath, felt dizzy, was in significant amount of pain. Once the patient sat down, her pain was excruciating, she could not move. At this time, believe the patient's best interest will be admitted to the hospital. Patient is also assisted living with minimal help. Patient will need to have OT/PT here. Patient had an IV established, basic laboratory values. Patient will receive IV Zofran, 2 mg of IV morphine for pain control. Patient will be admitted to the hospitalist. I s poke with the patient's grandson, he was updated all of the events. Patient is stable for admission <Dr. Jung Lemon, DO - Last Filed: 07/30/22 22:28> MDM MDM Narrative Medical decision making narrative: Interventions / MDM: Differential diagnosis: Intracranial hemorrhage, cervical spine fracture, lumbar fracture. He states, falls also reported shortness of breath Diagnosis considered but do not suspect: N/A My EKG interpretation: N/A Imaging independently reviewed and interpreted by myself: CT cervical spine in brain: No intracranial hemorrhage or fractures. CT lumbar spine transverse fracture L1, no compression, significant degenerative changes noted. Also read by radiology. External documents reviewed: N/A Test considered but not ordered:N/A ED course: Attending note: Patient seen and evaluated with chemical preparer. I perform my own [id number] evaluation. I agree with the plan of work-up. Mechanical fall backwards hitting her head. She is at [facility] living she does have history of dementia however a noted 3 on exam. Grandson who reports DPOA is present states she is following daily for the past month. She has been in the ED multiple times. She is on Eliquis for history of paroxysmal atrial fibrillation. She is supposed to use a walker if she does not use it. Examination the patient, no hemotympanums. Alert and oriented x3. She is tender along the lower lumbar mid spine no step-offs. Negative logroll bilateral extremities upper extremities movement without any pain. No chest wall tenderness. Trauma scans head and neck lumbar spine evaluation per radiology concerns for transverse fracture of L1 there is no compression. No displacement. Patient treated for her pain symptoms ED initial tramadol then IM morphine. She attempted ambulating and able to ambulate however she became weaker and short of breath. Upon sitting down reported increasing back pain. Due to multiple falls on Eliquis also, concerning symptoms, discussed with hospitalist service for admission. Laboratory studies were ordered and pending. Not reproducible Re-evaluation: stable Disposition discussed with patient/family/significant other: Patient and family Case discussed with consulting clinician: Hospitalist, Dr. Hutchinson Radiography Diagnostic Testing: Clinical Impression(s) from Imaging Studies Brain CT 07/30/22 16:59 IMPRESSION: Acute left maxillary sinusitis. No acute intracranial findings. Microvascular ischemia. Atrophy. Electronically Signed: Cheryl Soto MD at 18:43 EST Reading Location ID and State: [place] MD Tel , Service support , Cervical Spine CT 07/30/22 16:59 IMPRESSION: No acute trauma. Degenerative listhesis at C3-4 and C7-T1. Mild degenerative changes detailed above. Electronically Signed: Cheryl Soto MD at 19:08 EST Reading Location ID and State: [place] MD Tel , Service support , Lumbar Spine CT 07/30/22 17:06 IMPRESSION: Acute to subacute L1 fracture. Severe levoscoliosis. L3-4 canal stenosis and right paracentral disc protrusion. Hiatal hernia. Electronically Signed: Cheryl Soto MD at 19:22 EST Reading Location ID and State: [place] MD Tel , Service support , Discharge Plan Dx/Rx/DC Orders Clinical Impression: Recurrent falls, CHI (closed head injury), Traumatic fracture of spine at T12- L1 level, Intractable back pain Disposition Disposition: Acute Care [facility]
[2022-07-30] MEDS: traMADol 50 MG Tablet PO (17:16)
--- NOTE | 2022-07-30 17:56 | ED.RN ---
THIS RN SPOKE WITH HE MARX AT GROOM. HE STATES NO AWARENESS OF PT TRYING TO BE TRANSFERRED FROM THE ASSISTED LIVING SIDE TO THE MEMORY CARE SIDE. HE STATES HE WILL HELP FACILITATE WHAT HE CAN BY CONTACTING THE HEAD NURSE AND HAVING THE HEAD NURSE CONTACT THE ER AND HIS POA TO TRY AND GET HER TRANSITIONED. DR GONZALEZ MADE AWARE
[2022-07-30] MEDS: Morphine 4 MG/ML Syringe IM (18:14)
--- NOTE | 2022-07-30 18:27 | ED.RN ---
THIS RN SPOKE WITH QUANG LEON IN THE ROOM. HE STATES HE WANTS HER TO STAY AT [facility] AND BE TRANSITIONED OT THE MEMORY CARE SIDE ONLY IF THAT IS WHAT THE ED DOC FEELS WOULD BE THE MOST APPROPRIATE. HE STATES HE IS CONCERNED THERE IS AN UNDERLYING INJURY OR CAUSE FOR THE FREQ FALLS AND WOULD LIKE THAT ADDRESSED. THIS RN NOTIFIED DR. GONZALEZ AND LOUISE JACOBSON OF [facility]. NEW ORDERS GIVEN FOR PAIN MEDICATION. PENDING CT RESULTS.
--- NOTE | 2022-07-30 20:20 | ED.RN ---
Ambulated patient with walker to the restroom. Pt did well, but was very short of breath. She said that is some what normal for her. After ambulating patient back to her room she states she was very light headed and nauseous. Assisted patient back into bed, in a position of comfort. Pt did not tolerate sitting on the side of bed due to pain. Patient was given an emesis bag and Dr Lemon and Conor DEGROOT was notified.
--- NOTE | 2022-07-30 20:38 | EKG12_ITS ---
Test Reason : PRE OP Blood Pressure : / mmHG Vent. Rate : 110 BPM Atrial Rate : 080 BPM P-R Int : 000 ms QRS Dur : 094 ms QT Int : 368 ms P-R-T Axes : 000 -89 015 degrees QTc Int : 498 ms Atrial fibrillation Left axis deviation Abnormal ECG No previous ECGs available Confirmed by REAL SLOAN, INDIRA ([id number]), continuity editor RICKEY ENGLAND ([id number]) on 08/02/2022 10:45:57 AM Referred By: DREW Confirmed By:INDIRA NOBLE MD
[2022-07-30] MEDS: Ondansetron 4 MG/2 ML Vial IV (20:49)
[2022-07-30] MEDS: Morphine 2 MG/ML Syringe IV (20:49)
[2022-07-30 20:55] LABS: Absolute Lymphocyte Count 1.45 X10^3/uL (0.83-4.51); Absolute Neutrophil Count 11.4 X10^3/uL (2.0-7.7); Basophil# 0.04 X10^3/uL; Basophil% 0.3 % (0-1); Eosinophils% 0.7 % (0-5); Hematocrit 47.6 % (37-47); Hemoglobin 15.4 g/dL (12.0-15.0); Lymphocyte # 1.45 X10^3/ul (0.83-4.51); Lymphocyte % 10.3 % (19-41); Mean Corp Hgb Conc 32.4 g/dL (32-36); Mean Corpuscular Hgb 29.3 pg (27.0-32.0); Mean Corpuscular Volume 90.7 fL (81-99); Monocyte# 0.89 X10^3/uL; Monocyte% 6.3 % (0-10); NRBC Flagged by Analyzer 0 % (0-5); Neutrophil # 11.42 X10^3/uL (2.7-7.7); Neutrophil % 81.1 % (47-70); Platelet Count 309 K/mm3 (150-450); RBC Distribution Width CV 13.3 % (11.6-14.6); RBC Distribution Width SD 44.7 fl (35.1-43.9); Red Blood Count 5.25 M/mm3 (4.2-5.4); White Blood Count 14.1 K/mm3 (4.4-11.0)
[2022-07-30 20:56] VITALS: BP 91/49; PULSE 82; RESP 18; O2SAT 95
--- NOTE | 2022-07-30 21:12 | PCM.HP.STD ---
HPI - General General Date of Admission: 07/30/22 Date of Service: 07/30/22 Chief Complaint: Fall, head and lumbar back pain. HPI Narrative The patient is an 86 y/o F w/ PMHx: Vascular dementia with unclear behavioral disturbance history, Anxiety and Depression, PAF w/ Hx frequent falls reported in history, Hx NSVT, HTN, HLD, Hypothyroidism, GERD, Hx CVA with L cerebellar infarct prior noted who presents to the [facility] ED on 07/30/22 with history of unfortunately chemical fall noted to have lost her balance prompting her to go backwards striking her head on a dresser with significant discomfort to the back of her head and her lower back with call the EMS with no specific LOC or any other injury but ongoing significant debility and pain elicited with activity especially in the lower back. She does not have mild throbbing to the back of her head, 2-3 out of 10 with no light or sound sensitivity. She denies any specific neck discomfort. She notes her lumbar back discomfort is worse with any movement in the bed or attempt to move and at that point rated 10 out of 10 with severe sharp stabbing otherwise its aching mild constant 4-10 in severity. Work-up in the ED included T97.4, heart rate 70, BP 159/115, respiratory rate 18, 93% on room air, CT brain with acute left maxillary sinusitis changes, microvascular ischemia and atrophy with no acute intracranial findings, CT cervical spine with no acute evidence of trauma, degenerative listhesis at C3-4 and C7-T1 with mild generative changes, CT lumbar spine with acute to subacute L1 fracture, severe levoscoliosis, L3-4 canal stenosis and right paracentral disc protrusion, hiatal hernia. In the ED patient administered tramadol 50 mg p.o. x1, Zofran 4 mg IV x1, morphine 4 mg IM x1 and eventually morphine 2 mg IV x1. CBC, BMP and urinalysis requested per ED and are pending upon requested evaluation of patient. We will also add EKG to this request in case any operative intervention decision made per orthospine. [facility] Medical History (Updated 07/30/22 @ 21:[address] Estela Hutchinson MD) Anxiety and depression CVA (cerebral vascular accident) (11/16/17) Essential (primary) hypertension GERD (gastroesophageal reflux disease) Hyperlipidemia Hypothyroidism Non-rheumatic aortic stenosis Nonsustained ventricular tachycardia PAF (paroxysmal atrial fibrillation) Secondary pulmonary arterial hypertension Vascular dementia Home Medications metoprolol tartrate 50 mg tablet 50 mg PO BID BLOOD PRESSURE 05/13/14 [History Last Taken 08/31/20 08:00] calcium carbonate 600 mg-vitamin D3 20 mcg (800 unit) tablet 1 ea PO DAILY supplement 11/16/17 [History Last Taken 08/30/20 12:00] bivpdkwdgkz-[id number]-vvp C-Mn 500 mg-400 mg capsule 2 ea PO DAILY supplement 11/16/17 [History Last Taken 08/30/20 12:00] multivitamin 1 ea PO DAILY supplement 11/16/17 [History Last Taken 08/31/20 08:00] omeprazole magnesium 20 mg tablet,delayed release 20 mg PO DAILY acid reflux 11/16/17 [History Last Taken 08/31/20 08:00] atorvastatin 40 mg tablet 40 mg PO QHS cholesterol #30 tabs 12/12/17 [Rx Last Taken 08/30/20 21:00] biotin 10,000 mcg capsule 10,000 mcg PO DAILY health maintenance 02/04/20 [History Last Taken 08/31/20 08:00] omega-3 fatty acids 1,000 mg capsule (Fish Oil Concentrate) 1,000 mg PO BID health maintenance 02/04/20 [History Last Taken 08/30/20 08:00] triamcinolone acetonide 0.5 % topical cream 1 applic topical BID PRN Itching 08/31/20 [History Last Taken Unknown] acetaminophen 325 mg tablet 650 mg PO Q6H PRN PRN Pain Score 1-10/Temp > 100.7 F 09/01/20 [Rx Last Taken Unknown] albuterol sulfate 2.5 mg/3 mL (0.083 %) solution for nebulization 2.5 mg (3 mL) inhalation Q2H PRN PRN SOB/Wheezing 09/01/20 [Rx Last Taken Unknown] apixaban 2.5 mg tablet 2.5 mg PO BID blood thinner 09/01/20 [History Last Taken Unknown] furosemide 40 mg tablet 40 mg PO DAILY fluid pill 09/01/20 [History Last Taken Unknown] levothyroxine 50 mcg tablet 50 mcg PO DAILY thyroid 09/01/20 [History Last Taken Unknown] melatonin 3 mg tablet 3 mg PO QHS PRN PRN Insomnia 09/01/20 [Rx Last Taken Unknown] paroxetine HCl 10 mg tablet 10 mg PO DAILY mood 09/01/20 [History Last Taken Unknown] sennosides 8.6 mg-docusate sodium 50 mg tablet 2 tablet PO BID PRN PRN Constipation 09/01/20 [Rx Last Taken Unknown] gabapentin 100 mg capsule 100 mg PO BID 05/13/21 [History Last Taken Unknown] cephalexin 500 mg capsule 500 mg PO TID 7 days #21 caps 06/25/22 [Rx Last Taken Unknown] potassium chloride 20 mEq tablet,extended release 20 meq PO BID #180 tabs 07/01/22 [Rx Last Taken Unknown] metaxalone 800 mg tablet 800 mg PO TID PRN muscle pain #20 tabs 07/06/22 [Rx Last Taken Unknown] Allergy/AdvReac Type Severity Reaction Status Date / Time adhesive Allergy Intermediate rash Verified 06/24/22 21:34 aspirin Allergy Hives Verified 06/24/22 21:34 lidocaine Allergy PT UNSURE Verified 07/30/22 16:25 OF REACTION tetanus immune globulin Allergy Rash Verified 06/24/22 21:34 sulfamethoxazole AdvReac Rash Verified 06/24/22 21:34 [From Bactrim] trimethoprim [From Bactrim] AdvReac Rash Verified 06/24/22 21:34 Family History (Updated 07/30/22 @ 21:[address] Estela Hutchinson MD) Mother Heart disease CVA (cerebral vascular accident) Father Kidney disease Surgical History (Updated 07/30/22 @ 21:[address] Estela Hutchinson MD) History of cholecystectomy S/P breast biopsy Social History (Updated 07/30/22 @ 20:[address] Estela Hutchinson MD) housing: assisted living facility Smoking Status: Never smoker alcohol intake: never substance use type: does not use caffeine: No ROS ROS Narrative Admission Review of Systems: CONSTITUTIONAL: No weight loss, fever, chills, + weakness or fatigue. HEENT: + Mild headache. Eyes: No visual loss, blurred vision, double vision or yellow sclerae. Ears, Nose, Throat: No hearing loss, sneezing, congestion, runny nose or sore throat. SKIN: No rash or itching, lesions, wounds. CARDIOVASCULAR: No chest pain, chest pressure or chest discomfort, palpitations, edema, orthopnea, syncopal events. RESPIRATORY: No shortness of breath, cough or sputum, wheezing, hemoptysis. GASTROINTESTINAL: + anorexia, nausea, No vomiting or diarrhea, abdominal pain, melena, BRBPR. GENITOURINARY: No dysuria, frequency, urgency or retention. NEUROLOGICAL: + Prior CVA (cerebellar) w/ frequent falls, dementia, No headache, dizziness, syncope, paralysis, numbness or tingling in the extremities, focal weakness, change in bowel or bladder control, seizure. MUSCULOSKELETAL: + muscle, back pain, joint pain or stiffness. HEMATOLOGIC: + Easy bleeding or bruising. LYMPHATICS: No enlarged nodes. No history of splenectomy. PSYCHIATRIC: + history of depression or anxiety. ENDOCRINOLOGIC: No reports of sweating, cold or heat intolerance. No polyuria or polydipsia. ALLERGIES: + history of hives. Vital Signs Vital Signs Vital Signs: 07/30/22 16:22 Temperature 97.4 F L Temperature Source Oral Pulse Rate 70 Respiratory Rate 18 Blood Pressure 159/115 H Blood Pressure Mean 129 Pulse Ox 93 Oxygen Delivery Method Room Air Weight Weight: 155 lb 6.814 oz Body Mass Index (BMI) 25.8 Physical Exam Narrative Physical Examination: General: Awake, alert, oriented to self, place and recent events, does have underlying dementia but appears appropriate currently, following commands, cooperative, laying in the ED bed, uncomfortable appearing, severe pain with movement attempts. Skin: Normal color, normal turgor, no icterus, no cyanosis except occasional staged ecchymoses and recent abrasion secondary to fall. HEENT: Primarily atraumatic except mild swelling to the back of the head where she fell/NC, EOMI, PERRLA, moderately dry MM, no carotid bruits or JVD noted. Lungs: Mildly diminished, greater bases, appropriate effort, no rales, ronchi or wheezing. Heart: Rate appropriate, irregular; no gallop, rub audible. Abdomen: Soft, overweight, NTTP, ND, mildly hyperactive BS, no HSM. Extremities: No cyanosis, no clubbing, very mild peripheral ankle swelling, pitting. Neurological: Patient awake, alert, oriented as noted, cognitive function mildly decreased baseline secondary to underlying dementia but currently appears intact; pupils equally reactive to light and accommodation, cranial nerves grossly normal, moving all 4 extremities however extremely limited secondary to lumbar back pain elicited, strength accordingly severely globally decreased. Psychiatric: Affect appears uncomfortable, no acute evidence of depressive or anxiety feelings but does have underlying history. Results Lab / Micro Data Result Diagrams: 07/30/22 20:40 07/30/22 20:[address] 07/30/22 16:59 IMPRESSION: Acute left maxillary sinusitis. No acute intracranial findings. Microvascular ischemia. Atrophy. Electronically Signed: Cheryl Soto MD at 18:43 EST Reading Location ID and State: [place] Dukes MD Tel , Service support , Cervical Spine CT 07/30/22 16:59 IMPRESSION: No acute trauma. Degenerative listhesis at C3-4 and C7-T1. Mild degenerative changes detailed above. Electronically Signed: Cheryl Soto MD at 19:08 EST Reading Location ID and State: [place]acey Dukes MD Tel , Service support , Lumbar Spine CT 07/30/22 17:06 IMPRESSION: Acute to subacute L1 fracture. Severe levoscoliosis. L3-4 canal stenosis and right paracentral disc protrusion. Hiatal hernia. Electronically Signed: Cheryl Soto MD at 19:22 EST Reading Location ID and State: [place]acey Dukes MD Tel , Service support , Assessment & Plan Assessment/Plan (1) Intractable back pain: PLAN: Plan The patient is an 86 y/o F w/ PMHx: Vascular dementia with unclear behavioral disturbance history, Anxiety and Depression, PAF w/ Hx frequent falls reported in history, Hx NSVT, HTN, HLD, Hypothyroidism, GERD, Hx CVA with L cerebellar infarct prior noted who presents to the [facility] ED on 07/30/22 with history of unfortunately chemical fall noted to have lost her balance prompting her to go backwards striking her head on a dresser with significant discomfort to the back of her head and her lower back with call the EMS with no specific LOC or any other injury but ongoing significant debility and pain elicited with activity especially in the lower back. #1. Acute Intractable Back Pain secondary to mechanical fall with acute to subacute horizontal L1 fracture: Will admit to [facility], maintain on fall precautions, frequent positioning, initiate IV toradol if renal function appropriate (awaiting admission BMP), home metaxalone regimen, will increase patient chronic gabapentin and broaden timing, po/IV narcotic pain regimen, anti-emetics, bowel regimen. Will consult PT and OT for evaluation as well as Case management for discharge planning. We will request ortho-spine evaluation and until she is assessed per their service with potential imaging additional needs and therapy evaluation following improved pain control we will hold oral anticoagulant in case of intervention necessity. Admission CBC, BMP, UA, EKG pending upon requested evaluation of patient. #2. PAF: We will continue patient home metoprolol regimen, will temporarily hold patient Eliquis especially given frequent fall history but imagine this was readded with prior stroke, add back if no intervention planned per ortho-spine but again patient with significant fall history most recently prior to current presentation 07/06/2022 therefore may need to consider discontinuation in the future. EKG pending upon requested evaluation of patient. #3. History CVA: Patient with history of left cerebellar infarct, associated frequent fall history noted, holding Eliquis pending evaluation per orthospine given acute presentation as noted, continue hypertensive and hyperlipidemia regimen. #4. Hypothyroidism: We will continue patient home levothyroxine regimen. #5. Hypertension: We will continue patient home metoprolol, Lasix home regimen, PRN IV hydralazine. #6. Hyperlipidemia: We will continue patient home statin therapy #7. Anxiety and depression: We will continue patient home Paxil regimen. #8. Vascular dementia with unclear behavioral disturbance history: Complicates presentation, maintain on fall precautions, on any chronic regimen, therapies as well as case management consulted with likely transient skilled need prior to return to assisted living. #9. GERD: We will continue patient home PPI. #10. DVT prophylaxis: SCDs, holding patient home apixaban in case of potential intervention needs for acute presentation is noted. #11. CODE status: Patient REGGIE is her grandson who is present and living will is currently in place. Discussed CODE status at length including difference between FULL code, DNR-CCA and DNR-CC status. Following discussions about the differences in these status, requested DNR-CCA, no intubation status. Advanced Care Planning Face to Face Time: 16 minutes. Admission Evaluation Time spent evaluating chart, patient history, patient evaluation, care planning and discussion with specialists: 55 minutes. Charges/Coding Visit Charges Inpatient E&M: 73346 Init Hosp L2 Procedures Hospitalists Procedures: 91933 Advncd Care Plan 30 Min
[2022-07-30 21:19] LABS: Anion Gap 12 (5-15); BUN 10 mg/dL (7-18); BUN/Creat Ratio 11.5 RATIO (10-20); Calcium,Total 8.6 mg/dL (8.5-10.1); Chloride 104 mmol/L (98-107); Creatinine, Serum 0.87 mg/dL (0.55-1.02); EST Glomerular Filtration Rate 66 mL/min (>60); Est Glom Filt Rate - Afr Amer 80 mL/min (>60); Estimated Creatinine Clearance 40.99 ml/min; Glucose 112 mg/dL (74-106); Potassium 3.1 mmol/L (3.5-5.1); Sodium Level 140 mmol/L (136-145)
[2022-07-30 21:52] VITALS: BMI 24.6
[2022-07-30 21:58] VITALS: BP 111/54; PULSE 96; RESP 18; TEMP 36.4; O2SAT 97
[2022-07-30] MEDS: Menthol/Lanolin/Calamine/Znox 113 GM Tube 1 APPLIC TOPICAL (22:39)
[2022-07-30 22:41] VITALS: BP 111/54; PULSE 96
[2022-07-30] MEDS: Metoprolol Tartrate 50 MG Tablet PO (22:41)
[2022-07-30] MEDS: Atorvastatin Calcium 40 MG Tablet PO (22:41)
[2022-07-30] MEDS: MELATONIN 3 MG TABLET PO (22:41)
[2022-07-30] MEDS: Gabapentin 100 MG Capsule PO (22:41)
[2022-07-30] MEDS: Acetaminophen 325 MG Tablet 650 MG PO (22:41)
[2022-07-30] MEDS: Potassium Chloride Oral Tablet 20 MEQ PO (22:41)
[2022-07-30] MEDS: oxyCODONE 5 MG Tablet 2.5 MG PO (22:42)
[2022-07-31] VITALS (7 sets, daily range): BP systolic 102–110; BP diastolic 63–85; PULSE 66–82; RESP 18–20; TEMP 36.5–37; O2SAT 94–97; BMI 24.6
[2022-07-31] MEDS: cycloBENZAPRine HCl 10 MG Tablet 5 MG PO ×3 (04:54→21:32)
[2022-07-31] MEDS: Senna/Docusate Sodium 1 Tablet 2 TABLET PO (04:55)
[2022-07-31] MEDS: Acetaminophen 325 MG Tablet 650 MG PO ×3 (04:55→21:33)
[2022-07-31] MEDS: Gabapentin 100 MG Capsule PO ×3 (04:55→21:32)
[2022-07-31 06:40] LABS: Absolute Lymphocyte Count 1.71 X10^3/uL (0.83-4.51); Absolute Neutrophil Count 7.7 X10^3/uL (2.0-7.7); Basophil# 0.06 X10^3/uL; Basophil% 0.6 % (0-1); Eosinophil# 0.27 X10^3/uL; Eosinophils% 2.5 % (0-5); Hematocrit 47.9 % (37-47); Lymphocyte # 1.71 X10^3/ul (0.83-4.51); Mean Corp Hgb Conc 31.3 g/dL (32-36); Mean Corpuscular Hgb 29.5 pg (27.0-32.0); Mean Corpuscular Volume 94.3 fL (81-99); Mean Platelet Vol. 11.3 fl (6.2-12.0); Monocyte# 0.79 X10^3/uL; Monocyte% 7.4 % (0-10); NRBC Flagged by Analyzer 0 % (0-5); Neutrophil # 7.72 X10^3/uL (2.7-7.7); Platelet Count 281 K/mm3 (150-450); RBC Distribution Width CV 13.4 % (11.6-14.6); RBC Distribution Width SD 46.8 fl (35.1-43.9); Red Blood Count 5.08 M/mm3 (4.2-5.4); White Blood Count 10.7 K/mm3 (4.4-11.0)
[2022-07-31 07:06] LABS: ALB/GLOB Ratio 0.8 RATIO (0.9-2.4); AST(SGOT) 49 U/L (15-37); Alanine Aminotransfer ALT/SGPT 41 U/L (13-56); Albumin, Serum 2.6 g/dL (3.2-5.0); Alkaline Phosphatase 142 U/L (45-117); Anion Gap 7 (5-15); BUN 11 mg/dL (7-18); BUN/Creat Ratio 13.8 RATIO (10-20); Calcium,Total 8.3 mg/dL (8.5-10.1); Chloride 105 mmol/L (98-107); EST Glomerular Filtration Rate 72 mL/min (>60); Est Glom Filt Rate - Afr Amer 88 mL/min (>60); Estimated Creatinine Clearance 44.58 ml/min; Globulin 3.4 g/dL (2.2-4.2); Glucose 108 mg/dL (74-106); Potassium 3.8 mmol/L (3.5-5.1); Sodium Level 138 mmol/L (136-145)
[2022-07-31] MEDS: oxyCODONE 5 MG Tablet 2.5 MG PO ×2 (09:58→16:15)
[2022-07-31] MEDS: Furosemide 40 MG Tablet PO (09:59)
[2022-07-31] MEDS: Calcium Carb/Vitamin D 1 TABLET Tablet PO (09:59)
[2022-07-31] MEDS: Potassium Chloride Oral Tablet 20 MEQ PO ×3 (09:59→21:34)
[2022-07-31] MEDS: PARoxetine 10 MG Tablet PO (10:01)
[2022-07-31] MEDS: Menthol/Lanolin/Calamine/Znox 113 GM Tube 1 APPLIC TOPICAL ×4 (10:04→21:33)
[2022-07-31] MEDS: Metoprolol Tartrate 50 MG Tablet PO (10:09)
[2022-07-31] MEDS: Pantoprazole Sodium 40 MG Tablet PO (10:24)
[2022-07-31] MEDS: Ensure Plus High Protein 120 ML LIQUID PO ×2 (13:09→15:53)
--- NOTE | 2022-07-31 13:49 | PN_ITS ---
Subjective Subjective Patient seen and examined. She had no complaints and was resting comfortably. She said her back pain had improved significantly. She denies any nausea or vomiting or fever or chills or any other symptoms. Review of systems otherwise negative. Objective Data Objective Data Vital Signs: Vital Signs Temp Pulse Resp BP Pulse Ox O2 Del Method 98.6 F 75 20 H 110/78 96 Room Air 07/31/22 10:07 07/31/22 10:09 07/31/22 10:07 07/31/22 10:07 07/31/22 10:07 07/31/22 10:07 Oxygen Delivery Method Room Air Weight: 147 lb 14.883 oz Body Mass Index (BMI) 24.6 Medical Nutrition Assessment Dietitian: Malnutrition Criteria Met Start: 07/31/22 10:13 Freq: Status: Active Protocol: Document 07/31/22 10:13 AG (Rec: 07/31/22 10:14 AG [id number]) Nutrition Malnutrition Evidence of Malnutrition Exists Yes Malnutrition (moderate): Acute Illness/Injury Evidenced By Suboptimal Energy Intake ( Moderate),Weight Loss (Severe) ,Physical Changes (Mild) Clinical Problem Acute Disease or Injury Related Malnutrition Etiology moderate, acute malnutrition related to inadequate energy intake w/ decreased appetite after back injury Signs/Symptoms as evidenced by pt reports of poor PO intake estimated to be meeting <75% of estimated energy needs x 1 month; Mild muscle wasting/fat loss evident per physical exam in orbital, clavicle, acromion, and temporal areas; reported unintentional wt loss x 1 month of 18-24# (12%) Status Active Problem Recommendation Dietitian Recommendations/Changes will adjust diet to regular given evidence of malnutrition ; will also add 120mL ensure plus high protein 4x/day w/ medpass for additional calories/protein if consumed. Lab / Micro Data Result Diagrams: 07/31/22 05:49 07/31/22 05:20 Labs: Laboratory Results - last 24 hr 07/30/22 20:40: WBC 14.1 H, RBC 5.25, Hgb 15.4 H, Hct 47.6 H, MCV 90.7, MCH 29.3, MCHC 32.4, RDW Std Deviation 44.7 H, RDW Coeff of Krissy 13.3, Plt Count 309, MPV 11.0, Immature Gran % (Auto) 1.300 H, Neut % (Auto) 81.1 H, Lymph % (Auto) 10.3 L, [place] % (Auto) 6.3, Eos % (Auto) 0.7, Baso % (Auto) 0.3, Absolute Neuts (auto) 11.4 H, Absolute Lymphs (auto) 1.45, Nucleated RBC % 0 07/30/22 20:40: Sodium 140, Potassium 3.1 L, Chloride 104, Carbon Dioxide 24.0, Anion Gap 12, BUN 10, Creatinine 0.87, Estim Creat Clear Calc 40.99, Est GFR (MDRD) Af Amer 80, Est GFR (MDRD) Non-Af 66, BUN/Creatinine Ratio 11.5, Glucose 112 H, Calcium 8.6 07/31/22 05:20: Sodium 138, Potassium 3.8, Chloride 105, Carbon Dioxide 26.0, Anion Gap 7, BUN 11, Creatinine 0.80, Estim Creat Clear Calc 44.58, Est GFR (MDRD) Af Amer 88, Est GFR (MDRD) Non-Af 72, BUN/Creatinine Ratio 13.8, Glucose 108 H, Calcium 8.3 L, Total Bilirubin 0.60, AST 49 H, ALT 41, Alkaline Phosphatase 142 H, Total Protein 6.0 L, Albumin 2.6 L, Globulin 3.4, Albumin/Globulin Ratio 0.8 L 07/31/22 05:49: WBC 10.7, RBC 5.08, Hgb 15.0, Hct 47.9 H, MCV 94.3, MCH 29.5, MCHC 31.3 L, RDW Std Deviation 46.8 H, RDW Coeff of Krissy 13.4, Plt Count 281, MPV 11.3, Immature Gran % (Auto) 1.500 H, Neut % (Auto) 72.0 H, Lymph % (Auto) 16.0 L, [place] % (Auto) 7.4, Eos % (Auto) 2.5, Baso % (Auto) 0.6, Absolute Neuts (auto) 7.7, Absolute Lymphs (auto) 1.71, Nucleated RBC % 0 Radiography Diagnostic Testing: Radiology Impression Brain CT 07/30/22 16:59 IMPRESSION: Acute left maxillary sinusitis. No acute intracranial findings. Microvascular ischemia. Atrophy. Electronically Signed: Cheryl Soto MD at 18:43 EST Reading Location ID and State: [place]acey / Tel , Service support , Cervical Spine CT 07/30/22 16:59 IMPRESSION: No acute trauma. Degenerative listhesis at C3-4 and C7-T1. Mild degenerative changes detailed above. Electronically Signed: Cheryl Soto MD at 19:08 EST Reading Location ID and State: Jacey Dukes MD Tel , Service support , Lumbar Spine CT 07/30/22 17:06 IMPRESSION: Acute to subacute L1 fracture. Severe levoscoliosis. L3-4 canal stenosis and right paracentral disc protrusion. Hiatal hernia. Electronically Signed: Cheryl Soto MD at 19:22 EST Reading Location ID and State: Jacey Dukes MD Tel , Service support , Physical Exam Const alert, oriented x3 and no apparent distress General Appearance: cooperative HEENT normocephalic, head/scalp atraumatic and moist oral mucous membranes Eyes PERRL and EOMs intact bilaterally Neck no lymphadenopathy and supple Lymph Lymphatic: no lymphadenopathy noted Resp normal respiratory effort, normal air movement and clear to auscultation bilaterally Cardio regular rate, regular rhythm, S1 normal heart sound, S2 normal heart sound and no murmurs GI normal to inspection, nondistended, normoactive bowel sounds, soft to palpation, non-tender and non-distended Extremity normal capillary refill, no clubbing, cyanosis or edema and no calf tenderness Skin General Skin Exam: no breakdown Neuro CN's II-XII intact bilaterally, no focal motor deficits and no sensory deficits noted Motor Exam: strength 5/5 throughout Psych thought process normal Assessment & Plan Assessment/Plan (1) Dizziness: (2) Falls frequently: PLAN: Plan #Intractable back pain due to mechanical fall * had resultant subacute L1 fracture * patient feels much better today. Pain has improved significantly * PT/OT on board * on Po tylenol, po oxycodone and IV morphine prn for pain * fall precautions * #Paroxysmal afib: on metoprolol. Eliquis on hold due to recurrent falls. #History of CVA:eliquis on hold. On statin #Hypothyroidism: On Synthroid #Hypertension: On metoprolol. IV hydralazine as needed. #Anxiety and depression: On Paxil # vascular Dementia: stable. Pt/OT on board #GERD: on PPI DVT prophylaxis: SCDs Charges/Coding Visit Charges Inpatient E&M: 77387 Subs Hosp L2
[2022-07-31] MEDS: 0.9% Saline Lock 10 ML Syringe IV (16:16)
[2022-07-31] MEDS: MELATONIN 3 MG TABLET PO (21:33)
[2022-07-31] MEDS: Atorvastatin Calcium 40 MG Tablet PO (21:35)
[2022-07-31] MEDS: Sertraline 100 MG Tablet PO (21:36)
[2022-08-01] VITALS (9 sets, daily range): BP systolic 96–131; BP diastolic 69–77; PULSE 86–95; RESP 16–22; TEMP 36.6–36.8; O2SAT 91–98; BMI 24.6
[2022-08-01 00:22] LABS: Color, Urine Yellow (Yellow); Glucose, Dipstick Normal (Normal); Ketone-Dipstick 5 mg/dl (Negative); Leukocyte Esterase-Dipstick 500 /ul (Negative); Nitrite-Dipstick Negative (Negative); Occult Blood-Urine 10 /ul (Negative); Protein-Dipstick 30 mg/dl (Negative); Urine Clarity Sl. Cloudy (Clear); Urine Urobilinogen 1 mg/dl (Normal)
[2022-08-01 00:29] LABS: Urine Bilirubin Dipstick 1 mg/dL (Negative)
[2022-08-01 00:30] LABS: Red Blood Cells-Urine 10-25 SEEN /hpf (0-5); Renal Epithelial Cells 0-5 SEEN /hpf (0-5); Squamous Epithelial Cells - UA 0-5 SEEN /hpf (5-10); Transitional Epithelial - Ur 0-5 SEEN /hpf (0-5); White Blood Cells 50-100 SEEN /hpf (0-5)
[2022-08-01 00:31] LABS: Bacteria 1+ /hpf (None Seen); Calcium Oxalate Crystals Ur 1+ /hpf (<or=2+); Hyaline Cast 5-10 SEEN /lpf (0-5); Mucous, Urine 3+ /hpf (<or=2+)
[2022-08-01] MEDS: Gabapentin 100 MG Capsule PO ×3 (04:57→19:55)
[2022-08-01] MEDS: cycloBENZAPRine HCl 10 MG Tablet 5 MG PO ×2 (04:57→19:54)
[2022-08-01] MEDS: Acetaminophen 325 MG Tablet 650 MG PO ×2 (04:57→19:53)
[2022-08-01] MEDS: Levothyroxine 50 MCG Tablet PO (04:57)
[2022-08-01 07:07] LABS: Absolute Lymphocyte Count 1.37 X10^3/uL (0.83-4.51); Absolute Neutrophil Count 7.4 X10^3/uL (2.0-7.7); Basophil# 0.09 X10^3/uL; Basophil% 0.9 % (0-1); Hematocrit 46.7 % (37-47); Hemoglobin 14.3 g/dL (12.0-15.0); Lymphocyte # 1.37 X10^3/ul (0.83-4.51); Lymphocyte % 13.7 % (19-41); Mean Corp Hgb Conc 30.6 g/dL (32-36); Mean Corpuscular Hgb 29.7 pg (27.0-32.0); Mean Corpuscular Volume 97.1 fL (81-99); Mean Platelet Vol. 11.3 fl (6.2-12.0); Monocyte# 0.67 X10^3/uL; Monocyte% 6.7 % (0-10); NRBC Flagged by Analyzer 0 % (0-5); Neutrophil # 7.41 X10^3/uL (2.7-7.7); Neutrophil % 74.4 % (47-70); Platelet Count 253 K/mm3 (150-450); RBC Distribution Width CV 13.6 % (11.6-14.6); Red Blood Count 4.81 M/mm3 (4.2-5.4)
[2022-08-01 07:38] LABS: Anion Gap 7 (5-15); BUN 10 mg/dL (7-18); BUN/Creat Ratio 14.7 RATIO (10-20); Calcium,Total 8.5 mg/dL (8.5-10.1); Chloride 108 mmol/L (98-107); Creatinine, Serum 0.68 mg/dL (0.55-1.02); EST Glomerular Filtration Rate 87 mL/min (>60); Est Glom Filt Rate - Afr Amer 106 mL/min (>60); Estimated Creatinine Clearance 35.66 ml/min; Glucose 114 mg/dL (74-106); Potassium 3.8 mmol/L (3.5-5.1); Sodium Level 141 mmol/L (136-145)
--- NOTE | 2022-08-01 09:03 | PN.HOSP_ITS ---
Subjective Subjective No issues overnight, continues to have some back pain limiting mobility Objective Data Objective Data Vital Signs: Vital Signs Temp Pulse Resp BP Pulse Ox O2 Del Method 98.3 F 95 18 107/69 95 Room Air 08/01/22 04:15 08/01/22 04:15 08/01/22 04:15 08/01/22 04:15 08/01/22 04:15 08/01/22 04:15 Oxygen Delivery Method Room Air Weight: 147 lb 14.883 oz Body Mass Index (BMI) 24.6 Intake & Output: Intake and Output for Last 24 Hours 07/31/22 08/01/22 08/02/22 03:59 03:59 03:59 Intake Total 240 / 240 Balance 240 / 240 Medical Nutrition Assessment Dietitian: Malnutrition Criteria Met Start: 07/31/22 10:13 Freq: Status: Active Protocol: Document 07/31/22 10:13 AG (Rec: 07/31/22 10:14 [id number]) Nutrition Malnutrition Evidence of Malnutrition Exists Yes Malnutrition (moderate): Acute Illness/Injury Evidenced By Suboptimal Energy Intake ( Moderate),Weight Loss (Severe) ,Physical Changes (Mild) Clinical Problem Acute Disease or Injury Related Malnutrition Etiology moderate, acute malnutrition related to inadequate energy intake w/ decreased appetite after back injury Signs/Symptoms as evidenced by pt reports of poor PO intake estimated to be meeting <75% of estimated energy needs x 1 month; Mild muscle wasting/fat loss evident per physical exam in orbital, clavicle, acromion, and temporal areas; reported unintentional wt loss x 1 month of 18-24# (12%) Status Active Problem Recommendation Dietitian Recommendations/Changes will adjust diet to regular given evidence of malnutrition ; will also add 120mL ensure plus high protein 4x/day w/ medpass for additional calories/protein if consumed. Lab / Micro Data Result Diagrams: 08/01/22 06:30 08/01/22 06:30 Labs: Laboratory Results - last 24 hr 08/01/22 00:00: Urine Color Yellow, Urine Clarity Sl. Cloudy, Urine pH 5.0, Ur Specific [place] 1.020, Urine Protein 30 H, Urine Glucose (UA) Normal, Urine Ketones 5 H, Urine Occult Blood 10 H, Urine Nitrite Negative, Urine Bilirubin 1 H, Urine Urobilinogen 1 H, Ur Leukocyte Esterase 500 H, Urine RBC 10-25 SEEN, Urine WBC 50-100 SEEN, Ur Squamous Epith Cells 0-5 SEEN, Ur Transition Epith Cell 0-5 SEEN, Ur Renal Epithelial Cell 0-5 SEEN, Calcium Oxalate Crystal 1+, Urine Bacteria 1+, Hyaline Casts 5-10 SEEN, Urine Mucus 3+ 08/01/22 06:30: WBC 10.0, RBC 4.81, Hgb 14.3, Hct 46.7, MCV 97.1, MCH 29.7, MCHC 30.6 L, RDW Std Deviation 49.0 H, RDW Coeff of Krissy 13.6, Plt Count 253, MPV 11.3, Immature Gran % (Auto) 1.300 H, Neut % (Auto) 74.4 H, Lymph % (Auto) 13.7 L, [place] % (Auto) 6.7, Eos % (Auto) 3.0, Baso % (Auto) 0.9, Absolute Neuts (auto) 7.4, Absolute Lymphs (auto) 1.37, Nucleated RBC % 0 08/01/22 06:30: Sodium 141, Potassium 3.8, Chloride 108 H, Carbon Dioxide 26.0, Anion Gap 7, BUN 10, Creatinine 0.68, Estim Creat Clear Calc 35.66, Est GFR (MDRD) Af Amer 106, Est GFR (MDRD) Non-Af 87, BUN/Creatinine Ratio 14.7, Glucose 114 H, Calcium 8.5 Physical Exam Narrative General: Alert, Oriented x3, Cooperative, No apparent distress, appears in pain when moving in bed HEENT: Atraumatic, PERRLA, EOMI, Normocephalic Oral: Moist Mucosa Neck: Supple, No JVD Lungs: Diminished, Normal air movement, No rhonchi, No wheeze, No rales Cardiovascular: Regular rate, Regular Rhythm, Normal S1, Normal S2, No murmurs Abdomen: Soft, Non Tender, Non-Distended, No Hepato-splenomegaly Extremities: No edema, Capillary Refill Less than 3 Seconds Skin: No rashes, No breakdown Musculoskeletal: No Tenderness to Palpation of Joints or Extremities Neurological: Cranial nerves II-XII grossly intact, Motor Exam 5/5 strength throughout, Sensory exam intact to light touch and pain Psych/Mental Status: Flat Assessment & Plan Assessment/Plan (1) Dizziness: (2) Falls frequently: PLAN: Plan #Intractable back pain due to mechanical fall * had resultant subacute L1 fracture * PT/OT on board * on Po tylenol, po oxycodone and IV morphine prn for pain * fall precautions * Evaluation for possible placement #Paroxysmal afib/HTN/history of CVA: on metoprolol. Eliquis on hold due to recurrent falls, continue with blood pressure medications #Hypothyroidism: On Synthroid #Anxiety and depression: On Paxil # vascular Dementia: stable. Pt/OT on board #GERD: on PPI DVT prophylaxis: SCDs Charges/Coding Visit Charges Inpatient E&M: 60318 Subs Hosp L2
[2022-08-01] MEDS: Menthol/Lanolin/Calamine/Znox 113 GM Tube 1 APPLIC TOPICAL ×4 (09:52→19:56)
[2022-08-01] MEDS: Furosemide 40 MG Tablet PO (09:53)
[2022-08-01] MEDS: Potassium Chloride Oral Tablet 20 MEQ PO ×2 (09:53→19:56)
[2022-08-01] MEDS: Calcium Carb/Vitamin D 1 TABLET Tablet PO (09:54)
[2022-08-01] MEDS: Metoprolol Tartrate 50 MG Tablet PO ×2 (09:54→19:55)
[2022-08-01] MEDS: Pantoprazole Sodium 40 MG Tablet PO (09:54)
[2022-08-01] MEDS: PARoxetine 10 MG Tablet PO (09:55)
[2022-08-01] MEDS: Ensure Plus High Protein 120 ML LIQUID PO ×4 (09:59→20:05)
--- NOTE | 2022-08-01 10:19 | CASEMGMT ---
Addendum entered by Venessa Longoria 08/01/22 10:23: SW met with pt to confirm return to [facility]. Pt confirmed [facility] is home and pt would like to return there when ready to leave the hospital. SW explained pt may need some therapy before returning if [facility] feels cannot care for pt. Pt agreeable, stated would wait for [facility] to make decision. SW will await response from [facility], if can accept pt HHC services can return. If [facility] unable to take pt back SNF can be an option. Original Note: Social work SW sent clinical updates to [facility]. Asked [facility] to confirm if pt can return with resumption of HHC if possible. ROSA Miller
--- NOTE | 2022-08-01 12:42 | CON.PCM.OR_ITS ---
HPI Consult Data Date of Consult: 08/01/22 HPI Narrative Reason for Consultation: Acute exacerbation of chronic back pain HPI Narrative: The patient is an 86-year-old female with complaints of acute exacerbation of chronic back pain ever since a fall from standing on 07/30/2022. She is in assisted living and suffered a fall at home. She was brought by EMS to the ER where she was seen and evaluated. She was subsequently admitted with back pain limiting mobility and orthospine was consulted for evaluation and management. A lumbar CT scan was performed showing L1 fracture. She is sitting up in a bedside commode resting comfortably. She describes pain in the lumbosacral region and radiating across the posterior beltline that is worse with activity and relieved with rest. She does state that she has had problems with back pain for many years but feels it has been worse ever since her fall. She denies any acute numbness tingling weakness or changes in bowel or bladder function. She denies any history of back surgeries or back injections. She does state that she did have another fall several weeks ago and that her back pain has been noticeably worse since then. [facility] Medical History (Updated 07/30/22 @ 22:09 by Shari Rangel) Anxiety and depression CVA (cerebral vascular accident) (11/16/17) Essential (primary) hypertension GERD (gastroesophageal reflux disease) Hyperlipidemia Hypothyroidism Non-rheumatic aortic stenosis Nonsustained ventricular tachycardia PAF (paroxysmal atrial fibrillation) Rib fracture Secondary pulmonary arterial hypertension Vascular dementia Home Medications metoprolol tartrate 50 mg tablet 50 mg PO BID BLOOD PRESSURE 05/13/14 [History Last Taken 08/31/20 08:00] multivitamin 1 ea PO DAILY supplement 11/16/17 [History Last Taken 08/31/20 08:00] omeprazole magnesium 20 mg tablet,delayed release 40 mg PO DAILY acid reflux 11/16/17 [History Last Taken 08/31/20 08:00] atorvastatin 40 mg tablet 40 mg PO QHS cholesterol #30 tabs 12/12/17 [Rx Last Taken 08/30/20 21:00] biotin 10,000 mcg capsule 10,000 mcg PO DAILY health maintenance 02/04/20 [History Last Taken 08/31/20 08:00] omega-3 fatty acids 1,000 mg capsule (Fish Oil Concentrate) 1,000 mg PO BID health maintenance 02/04/20 [History Last Taken 08/30/20 08:00] triamcinolone acetonide 0.5 % topical cream 1 applic topical BID PRN Itching 08/31/20 [History Last Taken Unknown] albuterol sulfate 2.5 mg/3 mL (0.083 %) solution for nebulization 2.5 mg (3 mL) inhalation Q2H PRN PRN SOB/Wheezing 09/01/20 [Rx Last Taken Unknown] apixaban 2.5 mg tablet 2.5 mg PO BID blood thinner 09/01/20 [History Last Taken Unknown] furosemide 40 mg tablet 40 mg PO DAILY HTN 09/01/20 [History Last Taken Unknown] levothyroxine 50 mcg tablet 50 mcg PO DAILY thyroid 09/01/20 [History Last Taken Unknown] melatonin 3 mg tablet 3 mg PO QHS PRN PRN Insomnia 09/01/20 [Rx Last Taken Unknown] gabapentin 100 mg capsule 100 mg PO BID pain 05/13/21 [History Last Taken Unknown] cephalexin 500 mg capsule 500 mg PO TID 7 days #21 caps 06/25/22 [Rx Last Taken Unknown] Flexeril 5 mg PO/SL TID PRN PRN Pain 07/30/22 [History Last Taken Unknown] acetaminophen 500 mg tablet 1,000 mg PO Q6H PRN Pain 07/30/22 [History Last Taken Unknown] bisacodyl 5 mg tablet,delayed release 10 mg PO DAILY PRN Constipation 07/30/22 [History Last Taken Unknown] calcium citrate 200 mg (950 mg) tablet 600 mg PO DAILY health 07/30/22 [History Last Taken Unknown] fluticasone propionate 50 mcg/actuation nasal spray,suspension 1 spray intranasal DAILY PRN allergies 07/30/22 [History Last Taken Unknown] glucosamine-chondroitin 250 mg-200 mg tablet (Osteo Bi-Flex) 1 tab PO BID arthritis 07/30/22 [History Last Taken Unknown] lidocaine 4 % topical patch 1 patch topical BID PRN Pain 07/30/22 [History Last Taken Unknown] meclizine 12.5 mg tablet 12.5 mg PO BID PRN dizziness and giddiness 07/30/22 [History Last Taken Unknown] methyl salicylate 15 %-menthol 10 % topical cream 1 applic topical Q4H PRN Pain 07/30/22 [History Last Taken Unknown] potassium chloride 20 mEq tablet,extended release 20 meq PO BID hypokalemia 07/30/22 [History Last Taken Unknown] sertraline 100 mg tablet 100 mg PO QHS depression 07/30/22 [History Last Taken Unknown] tramadol 50 mg tablet 50 mg PO Q6H PRN PRN Pain 07/30/22 [History Last Taken Unknown] Allergy/AdvReac Type Severity Reaction Status Date / Time adhesive Allergy Intermediate rash Verified 07/30/22 22:16 aspirin Allergy Hives Verified 07/30/22 22:16 tetanus immune globulin Allergy Hives Verified 07/30/22 22:16 lidocaine AdvReac Rash Verified 07/30/22 22:23 sulfamethoxazole AdvReac Rash Verified 07/30/22 22:16 [From Bactrim] trimethoprim [From Bactrim] AdvReac Rash Verified 07/30/22 22:16 Family History (Updated 07/30/22 @ 21:[address] Estela Hutchinson MD) Mother Heart disease CVA (cerebral vascular accident) Father Kidney disease Surgical History (Updated 07/30/22 @ 21:[address] Estela Hutchinson MD) History of cholecystectomy S/P breast biopsy Social History (Updated 07/30/22 @ 20:[address] Estela Hutchinson MD) housing: assisted living facility Smoking Status: Never smoker alcohol intake: never substance use type: does not use caffeine: No Vital Signs Vital Signs Vital Signs: 07/31/22 16:00 07/31/22 21:24 07/31/22 21:35 Temperature 97.7 F L 98 F Temperature Source Oral Oral Pulse Rate 66 82 82 Pulse Strength Respiratory Rate 19 H 18 Respiratory Effort Respiratory Depth Respiratory Pattern Blood Pressure 102/65 107/85 H 107/85 H Blood Pressure Mean 77 92 Blood Pressure Source Monitor Monitor Blood Pressure Position Sitting Semi-Fowlers Blood Pressure Location Left Arm Right Arm Pulse Ox 97 94 Oxygen Delivery Method Room Air Room Air 07/31/22 21:25 07/31/22 21:25 08/01/22 04:15 Temperature 98.3 F Temperature Source Oral Pulse Rate 95 Pulse Strength Normal (2+) Respiratory Rate 18 Respiratory Effort Normal Non-Labored Respiratory Depth Normal Respiratory Pattern Normal Blood Pressure 107/69 Blood Pressure Mean 81 Blood Pressure Source Monitor Blood Pressure Position Semi-Fowlers Blood Pressure Location Right Arm Pulse Ox 95 Oxygen Delivery Method Room Air Room Air 08/01/22 04:15 08/01/22 09:45 08/01/22 09:54 Temperature 97.8 F Temperature Source Oral Pulse Rate 88 88 Pulse Strength Respiratory Rate 16 Respiratory Effort Normal Non-Labored Respiratory Depth Normal Respiratory Pattern Normal Blood Pressure 96/74 Blood Pressure Mean 81 Blood Pressure Source Monitor Blood Pressure Position Semi-Fowlers Blood Pressure Location Left Arm Pulse Ox 94 Oxygen Delivery Method Room Air Room Air 08/01/22 10:03 08/01/22 09:11 Temperature Temperature Source Pulse Rate Pulse Strength Respiratory Rate Respiratory Effort Respiratory Depth Respiratory Pattern Blood Pressure Blood Pressure Mean Blood Pressure Source Blood Pressure Position Blood Pressure Location Pulse Ox 94 94 Oxygen Delivery Method Weight Weight: 147 lb 14.883 oz Body Mass Index (BMI) 24.6 Physical Exam Const alert, oriented x3 and no apparent distress General Appearance: cooperative, comfortable and well kempt Eyes EOMs intact bilaterally and conjunctivae normal Neck full ROM General: normal visual inspection Chest inspection of chest normal and palpation of chest normal Resp normal respiratory effort and normal air movement Effort and Inspection: able to speak in complete sentences Cardio regular rate and peripheral pulses 2+ throughout GI soft to palpation, non-tender and non-distended Back/Spine Back/Spine Narrative: The patient has mild to moderate tenderness in the lumbosacral region, worse on the right. Significant scoliotic deformity of the thoraco lumbar spine Cervical Spine: cervical ROM normal Thoracic Spine / Upper Back: normal to inspection Lumbar Spine / Lower Back: normal to inspection Extremity normal to inspection, full ROM, normal capillary refill, no clubbing, cyanosis or edema and no calf tenderness Skin no rashes or lesions noted General Skin Exam: no breakdown Neuro oriented x3, CN's II-XII intact bilaterally, moves all extremities, no focal motor deficits, no sensory deficits noted and deep tendon reflexes 2+ bilaterally Motor Exam: strength 5/5 throughout Medical Records Data Medical Nutrition Assessment Dietitian: Malnutrition Criteria Met Start: 07/31/22 10:13 Freq: Status: Active Protocol: Document 07/31/22 10:13 AG (Rec: 07/31/22 10:14 [id number]) Nutrition Malnutrition Evidence of Malnutrition Exists Yes Malnutrition (moderate): Acute Illness/Injury Evidenced By Suboptimal Energy Intake ( Moderate),Weight Loss (Severe) ,Physical Changes (Mild) Clinical Problem Acute Disease or Injury Related Malnutrition Etiology moderate, acute malnutrition related to inadequate energy intake w/ decreased appetite after back injury Signs/Symptoms as evidenced by pt reports of poor PO intake estimated to be meeting <75% of estimated energy needs x 1 month; Mild muscle wasting/fat loss evident per physical exam in orbital, clavicle, acromion, and temporal areas; reported unintentional wt loss x 1 month of 18-24# (12%) Status Active Problem Recommendation Dietitian Recommendations/Changes will adjust diet to regular given evidence of malnutrition ; will also add 120mL ensure plus high protein 4x/day w/ medpass for additional calories/protein if consumed. Lab / Micro Data Result Diagrams: 08/01/22 06:30 08/01/22 06:30 Labs: Laboratory Results - last 24 hr 08/01/22 00:00: Urine Color Yellow, Urine Clarity Sl. Cloudy, Urine pH 5.0, Ur Specific Forman 1.020, Urine Protein 30 H, Urine Glucose (UA) Normal, Urine Ketones 5 H, Urine Occult Blood 10 H, Urine Nitrite Negative, Urine Bilirubin 1 H, Urine Urobilinogen 1 H, Ur Leukocyte Esterase 500 H, Urine RBC 10-25 SEEN, Urine WBC 50-100 SEEN, Ur Squamous Epith Cells 0-5 SEEN, Ur Transition Epith Ce ll 0-5 SEEN, Ur Renal Epithelial Cell 0-5 SEEN, Calcium Oxalate Crystal 1+, Urine Bacteria 1+, Hyaline Casts 5-10 SEEN, Urine Mucus 3+ 08/01/22 06:30: WBC 10.0, RBC 4.81, Hgb 14.3, Hct 46.7, MCV 97.1, MCH 29.7, MCHC 30.6 L, RDW Std Deviation 49.0 H, RDW Coeff of Krissy 13.6, Plt Count 253, MPV 11.3, Immature Gran % (Auto) 1.300 H, Neut % (Auto) 74.4 H, Lymph % (Auto) 13.7 L, Schleicher % (Auto) 6.7, Eos % (Auto) 3.0, Baso % (Auto) 0.9, Absolute Neuts (auto) 7.4, Absolute Lymphs (auto) 1.37, Nucleated RBC % 0 08/01/22 06:30: Sodium 141, Potassium 3.8, Chloride 108 H, Carbon Dioxide 26.0, Anion Gap 7, BUN 10, Creatinine 0.68, Estim Creat Clear Calc 35.66, Est GFR (MDRD) Af Amer 106, Est GFR (MDRD) Non-Af 87, BUN/Creatinine Ratio 14.7, Glucose 114 H, Calcium 8.5 Assessment & Plan Assessment/Plan (1) Traumatic fracture of spine at T12-L1 level: PLAN: I had a lengthy discussion with the patient. I reviewed her imaging with her. Lumbar CT scan dated 07/30/2022 shows significant scoliotic form of the lumbar spine, decreased bone mineral density throughout the lumbar spine, significant degenerative changes at all levels with loss of disc height, disc osteophyte complex formation and facet arthrosis. The radiologist has commented on an acute/subacute compression fracture of L1. At this point I recommend a lumbar MRI for further evaluation. In the meantime I recommend pain control and activity as tolerated and up with assistance. She understands and agrees with the treatment plan
[2022-08-01] MEDS: oxyCODONE 5 MG Tablet 2.5 MG PO ×3 (12:56→17:29)
--- NOTE | 2022-08-01 14:00 | MRI_ITS ---
STUDY: MR Spine Lumbar W/O Contrast 08/01/2022 5:44 PM REASON FOR EXAM: Female, 86 years old. Back pain back pain TECHNIQUE: MR Spine Lumbar W/O Contrast Standardized fat and water weighted pulse sequences were obtained. COMPARISON: CT 08/01/2022 FINDINGS: T12-L1: Normal endplates. Normal disc height, hydration and morphology. Normal bilateral facet joints. Normal central canal and bilateral lateral recesses. Normal bilateral intervertebral neural foramina. Normal lumbar lordosis. There is a levoscoliosis of the lumbar spine. Normal conus medullaris that terminates at the L1. L1-2: Loss of intervertebral disc height. There is endplate spondylosis of the vertebral body. Normal central canal and intervertebral neuroforamina. There is bilateral facet arthropathy. Acute horizontal fracture through the L1 vertebral body. L2-3: Loss of intervertebral disc height. There is endplate spondylosis of the vertebral body. There is bilateral facet arthropathy. Bilateral neural foraminal stenosis. Compression of exiting nerve roots. L3-4: Loss of intervertebral disc height. There is endplate spondylosis of the vertebral body. There is bilateral facet arthropathy. Bilateral neural foraminal stenosis. Compression of exiting nerve roots. Severe spinal stenosis. Posterior disc bulge. L4-5: Loss of intervertebral disc height. There is endplate spondylosis of the vertebral body. There is bilateral facet arthropathy. Bilateral neural foraminal stenosis. Compression of exiting nerve roots. L5-S1: Loss of intervertebral disc height. There is endplate spondylosis of the vertebral body. There is bilateral facet arthropathy. Bilateral neural foraminal stenosis. Compression of exiting nerve roots. Normal visualized sacral ala. Normal visualized paraspinous soft tissue structures. 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 MRI/Spine Lumbar (Routine) IMPRESSION: Multilevel degenerative changes, as described above. Severe spinal stenosis at L3-4. Acute horizontal fracture through the L1 vertebral body. No significant loss of the vertebral body height. Electronically Signed: Kevin Pan MD at 17:52 EDT ,
--- NOTE | 2022-08-01 15:16 | CASEMGMT ---
FRANCISCO J CM into pt room for DEVI form, pt is off of the floor at this time.
[2022-08-01] MEDS: 0.9% Saline Lock 10 ML Syringe IV (19:54)
[2022-08-01] MEDS: Sertraline 100 MG Tablet PO (19:55)
[2022-08-01] MEDS: Atorvastatin Calcium 40 MG Tablet PO (19:56)
[2022-08-02] VITALS (9 sets, daily range): BP systolic 119–140; BP diastolic 68–89; PULSE 66–82; RESP 16–20; TEMP 36.6–36.8; O2SAT 94–96; BMI 24.5
[2022-08-02] MEDS: oxyCODONE 5 MG Tablet 2.5 MG PO ×5 (01:33→21:16)
[2022-08-02] MEDS: Acetaminophen 325 MG Tablet 650 MG PO (03:24)
[2022-08-02] MEDS: cycloBENZAPRine HCl 10 MG Tablet 5 MG PO ×2 (03:25→11:04)
[2022-08-02] MEDS: Levothyroxine 50 MCG Tablet PO (06:59)
[2022-08-02] MEDS: Gabapentin 100 MG Capsule PO ×3 (06:59→21:15)
--- NOTE | 2022-08-02 08:35 | CASEMGMT ---
Addendum entered by Venessa Longoria 08/02/22 14:57: EDISON called pt jordon and Chriss DEL RIO. Chriss informed [facility] reported being able to accept pt back based on notes sent by this SW yesterday. Chriss provided the direct phone number for [facility] director. EDISON called this number and spoke to Venessa, the director of [facility]. Venessa informed pt is able to come back. EDISON notified MD Mora. MD Mora stated MD Wolf still reviewing treatment options for back pain and pt will not d/c today. Original Note: Social Work EDISON called [facility] to confirm fax from yesterday had been received. [facility] has received fax but not reviewed yet. EDISON spoke to nurse, Venessa. Venessa stated would review updates from [facility] and call this SW back to inform of determination on accepting pt back later this day. ROSA Miller
--- NOTE | 2022-08-02 08:58 | PCM.PN.HOSP ---
Subjective Subjective Pain is fairly well controlled, MRI with L1 vertebral fracture and severe spinal stenosis Objective Data Objective Data Vital Signs: Vital Signs Temp Pulse Resp BP Pulse Ox O2 Del Method 97.9 F 78 16 140/72 H 94 Room Air 08/02/22 08:50 08/02/22 08:50 08/02/22 08:50 08/02/22 08:50 08/02/22 08:50 08/02/22 08:50 Oxygen Delivery Method Room Air Weight: 147 lb 0.773 oz Body Mass Index (BMI) 24.5 Intake & Output: Intake and Output for Last 24 Hours 08/01/22 08/02/22 08/03/22 03:59 03:59 03:59 Intake Total 240 / 240 Balance 240 / 240 Medical Nutrition Assessment Dietitian: Malnutrition Criteria Met Start: 07/31/22 10:13 Freq: Status: Active Protocol: Document 07/31/22 10:13 AG (Rec: 07/31/22 10:14 [id number]) Nutrition Malnutrition Evidence of Malnutrition Exists Yes Malnutrition (moderate): Acute Illness/Injury Evidenced By Suboptimal Energy Intake ( Moderate),Weight Loss (Severe) ,Physical Changes (Mild) Clinical Problem Acute Disease or Injury Related Malnutrition Etiology moderate, acute malnutrition related to inadequate energy intake w/ decreased appetite after back injury Signs/Symptoms as evidenced by pt reports of poor PO intake estimated to be meeting <75% of estimated energy needs x 1 month; Mild muscle wasting/fat loss evident per physical exam in orbital, clavicle, acromion, and temporal areas; reported unintentional wt loss x 1 month of 18-24# (12%) Status Active Problem Recommendation Dietitian Recommendations/Changes will adjust diet to regular given evidence of malnutrition ; will also add 120mL ensure plus high protein 4x/day w/ medpass for additional calories/protein if consumed. Lab / Micro Data Result Diagrams: 08/01/22 06:30 08/01/22 06:30 Radiography Diagnostic Testing: Radiology Impression Lumbar Spine MRI 08/01/22 14:00 IMPRESSION: Multilevel degenerative changes, as described above. Severe spinal stenosis at L3-4. Acute horizontal fracture through the L1 vertebral body. No significant loss of the vertebral body height. Electronically Signed: Kevin Pan MD at 17:52 EDT , Physical Exam Narrative General: Alert, Oriented x3, Cooperative, No apparent distress, appears in pain when moving in bed HEENT: Atraumatic, PERRLA, EOMI, Normocephalic Oral: Moist Mucosa Neck: Supple, No JVD Lungs: Diminished, Normal air movement, No rhonchi, No wheeze, No rales Cardiovascular: Regular rate, Regular Rhythm, Normal S1, Normal S2, No murmurs Abdomen: Soft, Non Tender, Non-Distended, No Hepato-splenomegaly Extremities: No edema, Capillary Refill Less than 3 Seconds Skin: No rashes, No breakdown Musculoskeletal: No Tenderness to Palpation of Joints or Extremities Neurological: Cranial nerves II-XII grossly intact, Motor Exam 5/5 strength throughout, Sensory exam intact to light touch and pain Psych/Mental Status: Flat Assessment & Plan Assessment/Plan (1) Dizziness: (2) Falls frequently: PLAN: Plan 1. Intractable back pain due to mechanical fall ? MRI shows severe spinal stenosis with an L1 fracture ? Appreciate Ortho's assistance ? Continue with pain management ? PT/OT for possible placement 2. Paroxysmal A-fib/HTN/history of CVA ? Continue metoprolol ? We will hold her Eliquis secondary to recurrent falls and possible intervention 3. Hypothyroidism ? Stable ? Continue with Synthroid 4. Anxiety/depression/vascular dementia ? Stable ? Continue with her home medications 5. GERD ? Stable ? Continue with PPI DVT: SCDs Charges/Coding Visit Charges Inpatient E&M: 63721 Subs Hosp L2
[2022-08-02] MEDS: Menthol/Lanolin/Calamine/Znox 113 GM Tube 1 APPLIC TOPICAL ×4 (10:10→21:13)
[2022-08-02] MEDS: Calcium Carb/Vitamin D 1 TABLET Tablet PO (10:16)
[2022-08-02] MEDS: Potassium Chloride Oral Tablet 20 MEQ PO ×2 (10:16→21:15)
[2022-08-02] MEDS: Ensure Plus High Protein 120 ML LIQUID PO ×4 (10:16→21:13)
[2022-08-02] MEDS: Metoprolol Tartrate 50 MG Tablet PO ×2 (10:17→21:15)
[2022-08-02] MEDS: Furosemide 40 MG Tablet PO (10:17)
[2022-08-02] MEDS: PARoxetine 10 MG Tablet PO (10:17)
[2022-08-02] MEDS: Pantoprazole Sodium 40 MG Tablet PO (10:17)
--- NOTE | 2022-08-02 11:33 | PCM.PN.ORT ---
Subjective Subjective The patient was seen and examined. She is lying in bed resting comfortably. Her pain is controlled. She denies any acute numbness tingling weakness or changes in bowel or bladder function Objective Data Objective Data Vital Signs: Vital Signs Temp Pulse Resp BP Pulse Ox O2 Del Method 97.9 F 78 16 140/72 H 94 Room Air 08/02/22 08:50 08/02/22 10:17 08/02/22 08:50 08/02/22 08:50 08/02/22 08:50 08/02/22 08:50 Oxygen Delivery Method Room Air Weight: 147 lb 0.773 oz Body Mass Index (BMI) 24.5 Intake & Output: Intake and Output for Last 24 Hours 07/31/22 08/01/22 08/02/22 23:59 23:59 23:59 Intake Total Balance Medical Nutrition Assessment Dietitian: Malnutrition Criteria Met Start: 07/31/22 10:13 Freq: Status: Active Protocol: Document 07/31/22 10:13 AG (Rec: 07/31/22 10:14 [id number]) Nutrition Malnutrition Evidence of Malnutrition Exists Yes Malnutrition (moderate): Acute Illness/Injury Evidenced By Suboptimal Energy Intake ( Moderate),Weight Loss (Severe) ,Physical Changes (Mild) Clinical Problem Acute Disease or Injury Related Malnutrition Etiology moderate, acute malnutrition related to inadequate energy intake w/ decreased appetite after back injury Signs/Symptoms as evidenced by pt reports of poor PO intake estimated to be meeting <75% of estimated energy needs x 1 month; Mild muscle wasting/fat loss evident per physical exam in orbital, clavicle, acromion, and temporal areas; reported unintentional wt loss x 1 month of 18-24# (12%) Status Active Problem Recommendation Dietitian Recommendations/Changes will adjust diet to regular given evidence of malnutrition ; will also add 120mL ensure plus high protein 4x/day w/ medpass for additional calories/protein if consumed. Lab / Micro Data Result Diagrams: 08/01/22 06:30 08/01/22 06:30 Radiography Diagnostic Testing: Radiology Impression Lumbar Spine MRI 08/01/22 14:00 IMPRESSION: Multilevel degenerative changes, as described above. Severe spinal stenosis at L3-4. Acute horizontal fracture through the L1 vertebral body. No significant loss of the vertebral body height. Electronically Signed: Kevin Pan MD at 17:52 EDT , Physical Exam Const alert, oriented x3 and no apparent distress General Appearance: cooperative, comfortable and well kempt Neck full ROM General: normal visual inspection Resp normal respiratory effort and normal air movement Effort and Inspection: able to speak in complete sentences Cardio peripheral pulses 2+ throughout GI soft to palpation, non-tender and non-distended Back/Spine Back/Spine Narrative: Patient has mild tenderness in the posterior thoracolumbar region Thoracic Spine / Upper Back: normal to inspection Lumbar Spine / Lower Back: normal to inspection Extremity normal to inspection, full ROM, normal capillary refill, no clubbing, cyanosis or edema and no calf tenderness Peripheral Pulses: Yes pulses 2+ throughout Neuro oriented x3, CN's II-XII intact bilaterally, moves all extremities, no focal motor deficits, no sensory deficits noted and deep tendon reflexes 2+ bilaterally Motor Exam: strength 5/5 throughout and muscle tone normal throughout Assessment & Plan Assessment/Plan (1) Traumatic fracture of spine at T12-L1 level: PLAN: I had a lengthy discussion with the patient. I reviewed her imaging with her. She does have an acute fracture of L1. We discussed treatment options including surgical treatment which in her case would necessitate a posterior spinal fusion. She is not interested in surgery. Therefore I recommend back brace which I gave to her today. She is to wear her brace at all times while out of bed. Okay to remove brace to sleep. Also recommend activity restrictions including no repetitive bending, twisting, or lifting greater than 5 pounds. We did discuss the risk benefits and alternatives of both surgical and nonsurgical treatment. She does understand that with nonoperative treatment she is at an increased risk for nonunion and possible delayed surgery should her fracture become unstable. She can follow-up with me in 4 weeks, call for appointment. She understands and agrees with treatment plan
--- NOTE | 2022-08-02 15:30 | CASEMGMT ---
FRANCISCO J CM in to discuss DEVI form with patient. RN CM explained DEVI form, patient voiced understanding. Pt signed form and filed in chart. Pt provided with a copy of signed DEVI form. Patient had no further questions or concerns at this time.
[2022-08-02] MEDS: Sertraline 100 MG Tablet PO (21:15)
[2022-08-02] MEDS: Atorvastatin Calcium 40 MG Tablet PO (21:15)
[2022-08-02] MEDS: MELATONIN 3 MG TABLET PO (21:16)
[2022-08-03] MEDS: cycloBENZAPRine HCl 10 MG Tablet 5 MG PO (02:21)
[2022-08-03] MEDS: Acetaminophen 325 MG Tablet 650 MG PO (02:21)
[2022-08-03 02:25] VITALS: BP 136/95; PULSE 90; RESP 17; TEMP 36.7; O2SAT 100
[2022-08-03] MEDS: Gabapentin 100 MG Capsule PO ×2 (05:42→13:53)
[2022-08-03] MEDS: Levothyroxine 50 MCG Tablet PO (05:42)
[2022-08-03 06:00] VITALS: BMI 23.8
[2022-08-03 08:05] VITALS: BP 132/76; PULSE 72; RESP 16; TEMP 36.3; O2SAT 95
[2022-08-03 08:10] VITALS: PULSE 90
[2022-08-03] MEDS: Ensure Plus High Protein 120 ML LIQUID PO ×2 (08:20→13:53)
[2022-08-03 08:21] VITALS: PULSE 90
[2022-08-03] MEDS: Metoprolol Tartrate 50 MG Tablet PO (08:21)
[2022-08-03] MEDS: Calcium Carb/Vitamin D 1 TABLET Tablet PO (08:21)
[2022-08-03] MEDS: Pantoprazole Sodium 40 MG Tablet PO (08:21)
[2022-08-03] MEDS: PARoxetine 10 MG Tablet PO (08:22)
[2022-08-03] MEDS: Furosemide 40 MG Tablet PO (08:22)
[2022-08-03] MEDS: Potassium Chloride Oral Tablet 20 MEQ PO (08:22)
--- NOTE | 2022-08-03 09:15 | PCM.TXEXTCAR ---
Diet Diet Order/Speech Therapy: 07/31/22 09:42 Diet: Regular - General Is pt able to select menu?: Yes Routine Orders/Code Status Routine Lab Work: CBC and BMP Code Status: DNRCC-A Wound(s) L lower back: Wound Type: Burn Therapies Physical Therapy: Eval and Treat Occupational Therapy: Eval and Treat Problem/Diagnosis (1) Traumatic fracture of spine at T12-L1 level: Status: Acute Plan 1. Intractable back pain due to mechanical fall ? MRI shows severe spinal stenosis with an L1 fracture ? Appreciate Ortho's assistance ? Continue with pain management ? PT/OT for possible placement 2. Paroxysmal A-fib/HTN/history of CVA ? Continue metoprolol ? We will hold her Eliquis secondary to recurrent falls and possible intervention 3. Hypothyroidism ? Stable ? Continue with Synthroid 4. Anxiety/depression/vascular dementia ? Stable ? Continue with her home medications 5. GERD ? Stable ? Continue with PPI DVT: SCDs Allergies/Procedures Done in Hospital Allergies adhesive Allergy (Intermediate, Verified 07/30/22 22:16) rash aspirin Allergy (Verified 07/30/22 22:16) Hives tetanus immune globulin Allergy (Verified 07/30/22 22:16) Hives lidocaine Adverse Reaction (Verified 07/30/22 22:23) Rash Localized rash developed from lidocaine patch sulfamethoxazole [From Bactrim] Adverse Reaction (Verified 07/30/22 22:16) Rash trimethoprim [From Bactrim] Adverse Reaction (Verified 07/30/22 22:16) Rash Procedures: None Type of Care/Length of Stay Estimated LOS: Convalescent Care Less Than 30 days Type of Care Needed: Skilled Rehab Potential: Good Prognosis: Good Additional Orders/Day of Discharge Day of Discharge: 08/03/22 Dietary and Speech Recommendations Dietitian Recommendations/Changes: will adjust diet to regular given evidence of malnutrition; will also add 120mL ensure plus high protein 4x/day w/ medpass for additional calories/protein if consumed. Discharge Plan Admission Admit Date/Time: 07/30/22 20:39 Attending Provider: Jose Mora Primary Care Provider: Candis Hui Consulting Providers: Estela Hutchinson ; Jose Luna ; Gladys Chapin Discharge Orders/Prescriptions Prescriptions: Continued omega-3 fatty acids [Fish Oil Concentrate] 1,000 mg capsule 1,000 mg PO BID biotin 10,000 mcg capsule 10,000 mcg PO DAILY gabapentin 100 mg capsule 100 mg PO BID metoprolol tartrate 50 MG tablet 50 mg PO BID Label Comments: Blood Pressure and Heart Rate multivitamin 1 EACH tablet 1 ea PO DAILY omeprazole magnesium 20 MG tablet,delayed release (DR/EC) 40 mg PO DAILY atorvastatin 40 MG tablet 40 mg PO QHS Qty: 30 0RF triamcinolone acetonide 1 APPLIC cream 1 applic TOPICAL BID PRN (Reason: Itching) albuterol sulfate 2.5 MG/3 ML solution for nebulization 2.5 mg INHALATION Q2H PRN PRN (Reason: SOB/Wheezing) 0RF melatonin 3 MG tablet 3 mg PO QHS PRN PRN (Reason: Insomnia) 0RF furosemide 40 MG tablet 40 mg PO DAILY levothyroxine 50 MCG tablet 50 mcg PO DAILY apixaban 2.5 MG tablet 2.5 mg PO BID cephalexin 500 mg capsule 500 mg PO TID 7 Days Qty: 21 0RF potassium chloride 20 mEq tablet extended release 20 meq PO BID lidocaine 4 % Adhesive Patch,Medicated 1 patch TOPICAL BID PRN (Reason: Pain) sertraline 100 mg Tablet 100 mg PO QHS meclizine 12.5 mg tablet 12.5 mg PO BID PRN (Reason: dizziness and giddiness) tramadol 50 mg Tablet 50 mg PO Q6H PRN PRN (Reason: Pain) bisacodyl 5 mg Tablet,Delayed Release (Dr/Ec) 10 mg PO DAILY PRN (Reason: Constipation) fluticasone propionate 50 mcg/actuation spray,suspension 1 spray INTRANASAL DAILY PRN (Reason: allergies) Rx Instructions: yasmin nares calcium citrate 200 mg (950 mg) Tablet 600 mg PO DAILY glucosamine-chondroitin [Osteo Bi-Flex] 250-200 mg Tablet 1 tab PO BID Rx Instructions: give after food/meal methyl salicylate-menthol 15-10 % Cream 1 applic TOPICAL Q4H PRN (Reason: Pain) Flexeril 5 mg PO/SL TID PRN PRN (Reason: Pain) acetaminophen 500 mg Tablet 1,000 mg PO Q6H PRN (Reason: Pain) Referrals / Follow Up: Candis Hui MD [Primary Care Provider] - Disposition Disposition (needs filled in before D/C Order can be placed): Care Home Facility
--- NOTE | 2022-08-03 09:18 | DS.PCM_ITS ---
Providers Date of Admission: 07/30/22 Primary Care Physician: Dr. 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 Reason For Visit: INTRACTABLE BACK PAIN S/P FALL Diagnosis Discharge Diagnosis (1) Traumatic fracture of spine at T12-L1 level: Status: Acute Medications at Discharge Home Medications metoprolol tartrate 50 mg tablet 50 mg PO BID BLOOD PRESSURE 05/13/14 multivitamin 1 ea PO DAILY supplement 11/16/17 omeprazole magnesium 20 mg tablet,delayed release 40 mg PO DAILY acid reflux 11/16/17 atorvastatin 40 mg tablet 40 mg PO QHS cholesterol #30 tabs 12/12/17 biotin 10,000 mcg capsule 10,000 mcg PO DAILY health maintenance 02/04/20 omega-3 fatty acids 1,000 mg capsule (Fish Oil Concentrate) 1,000 mg PO BID health maintenance 02/04/20 triamcinolone acetonide 0.5 % topical cream 1 applic topical BID PRN Itching 08/31/20 albuterol sulfate 2.5 mg/3 mL (0.083 %) solution for nebulization 2.5 mg (3 mL) inhalation Q2H PRN PRN SOB/Wheezing 09/01/20 apixaban 2.5 mg tablet 2.5 mg PO BID blood thinner 09/01/20 furosemide 40 mg tablet 40 mg PO DAILY HTN 09/01/20 levothyroxine 50 mcg tablet 50 mcg PO DAILY thyroid 09/01/20 melatonin 3 mg tablet 3 mg PO QHS PRN PRN Insomnia 09/01/20 gabapentin 100 mg capsule 100 mg PO BID pain 05/13/21 cephalexin 500 mg capsule 500 mg PO TID 7 days #21 caps 06/25/22 Flexeril 5 mg PO/SL TID PRN PRN Pain 07/30/22 acetaminophen 500 mg tablet 1,000 mg PO Q6H PRN Pain 07/30/22 bisacodyl 5 mg tablet,delayed release 10 mg PO DAILY PRN Constipation 07/30/22 calcium citrate 200 mg (950 mg) tablet 600 mg PO DAILY health 07/30/22 fluticasone propionate 50 mcg/actuation nasal spray,suspension 1 spray intranasal DAILY PRN allergies 07/30/22 glucosamine-chondroitin 250 mg-200 mg tablet (Osteo Bi-Flex) 1 tab PO BID arthritis 07/30/22 lidocaine 4 % topical patch 1 patch topical BID PRN Pain 07/30/22 meclizine 12.5 mg tablet 12.5 mg PO BID PRN dizziness and giddiness 07/30/22 methyl salicylate 15 %-menthol 10 % topical cream 1 applic topical Q4H PRN Pain 07/30/22 potassium chloride 20 mEq tablet,extended release 20 meq PO BID hypokalemia 07/30/22 sertraline 100 mg tablet 100 mg PO QHS depression 07/30/22 tramadol 50 mg tablet 50 mg PO Q6H PRN PRN Pain 07/30/22 Hospital Course Operations None Procedures None Summary of Care Provided Minutes Spent on Discharge: 38 Hospital Course: Per HPI: The patient is an 86 y/o F w/ PMHx: Vascular dementia with unclear behavioral disturbance history, Anxiety and Depression, PAF w/ Hx frequent falls reported in history, Hx NSVT, HTN, HLD, Hypothyroidism, GERD, Hx CVA with L cerebellar infarct prior noted who presents to the [facility] ED on 07/30/22 with history of unfortunately chemical fall noted to have lost her balance prompting her to go backwards striking her head on a dresser with significant discomfort to the back of her head and her lower back with call the EMS with no specific LOC or any other injury but ongoing significant debility and pain elicited with activity especially in the lower back.? She does not have mild throbbing to the back of her head, 2-3 out of 10 with no light or sound sensitivity.? She denies any specific neck discomfort.? She notes her lumbar back discomfort is worse with any movement in the bed or attempt to move and at that point rated 10 out of 10 with severe sharp stabbing otherwise its aching mild constant 4-10 in severity.? Work-up in the ED included T97.4, heart rate 70, BP 159/115, respiratory rate 18, 93% on room air, CT brain with acute left maxillary sinusitis changes, microvascular ischemia and atrophy with no acute intracranial findings, CT cervical spine with no acute evidence of trauma, degenerative listhesis at C3-4 and C7-T1 with mild generative changes, CT lumbar spine with acute to subacute L1 fracture, severe levoscoliosis, L3-4 canal stenosis and right paracentral disc protrusion, hiatal hernia.? In the ED patient administered tramadol 50 mg p.o. x1, Zofran 4 mg IV x1, morphine 4 mg IM x1 and eventually morphine 2 mg IV x1.? CBC, BMP and urinalysis requested per ED and are pending upon requested evaluation of patient.? We will also add EKG to this request in case any operative intervention decision made per orthospine. Hospital Course: 1.? Intractable back pain due to mechanical fall ? MRI shows severe spinal stenosis with an L1 fracture, Ortho discussed with her the possibility for surgical treatment which would include his posterior spinal fusion which she refused. So we will plan to discharge to SNF with a back brace. I discussed with her the plan for discharge and she expressed understanding of the risk benefits of going to the half-way and would like to go today. She does have a lifting restriction of 5 pounds and she will need to follow-up with Ortho in about 4 weeks. ? Appreciate Ortho's assistance ? Continue with pain management ? PT/OT for possible placement 2.? Paroxysmal A-fib/HTN/history of CVA ? Continue metoprolol ?Given no surgical intervention will resume her Eliquis 3.? Hypothyroidism ? Stable ? Continue with Synthroid 4.? Anxiety/depression/vascular dementia ? Stable ? Continue with her home medications 5.? GERD ? Stable ? Continue with PPI Physical Exam Narrative General: Alert, Oriented x3, Cooperative, No apparent distress, appears in pain when moving in bed HEENT: Atraumatic, PERRLA, EOMI, Normocephalic Oral: Moist Mucosa Neck: Supple, No JVD Lungs: Diminished, Normal air movement, No rhonchi, No wheeze, No rales Cardiovascular: Regular rate, Regular Rhythm, Normal S1, Normal S2, No murmurs Abdomen: Soft, Non Tender, Non-Distended, No Hepato-splenomegaly Extremities: No edema, Capillary Refill Less than 3 Seconds Skin: No rashes, No breakdown Musculoskeletal: No Tenderness to Palpation of Joints or Extremities Neurological: Cranial nerves II-XII grossly intact, Motor Exam 5/5 strength th roughout, Sensory exam intact to light touch and pain Psych/Mental Status: Flat Medical Records Data Medical Nutrition Assessment Dietitian: Malnutrition Criteria Met Start: 03/12/23 10:13 Freq: Status: Active Protocol: Document 07/31/22 10:13 AG (Rec: 07/31/22 10:14 [id number]) Nutrition Malnutrition Evidence of Malnutrition Exists Yes Malnutrition (moderate): Acute Illness/Injury Evidenced By Suboptimal Energy Intake ( Moderate),Weight Loss (Severe) ,Physical Changes (Mild) Clinical Problem Acute Disease or Injury Related Malnutrition Etiology moderate, acute malnutrition related to inadequate energy intake w/ decreased appetite after back injury Signs/Symptoms as evidenced by pt reports of poor PO intake estimated to be meeting <75% of estimated energy needs x 1 month; Mild muscle wasting/fat loss evident per physical exam in orbital, clavicle, acromion, and temporal areas; reported unintentional wt loss x 1 month of 18-24# (12%) Status Active Problem Recommendation Dietitian Recommendations/Changes will adjust diet to regular given evidence of malnutrition ; will also add 120mL ensure plus high protein 4x/day w/ medpass for additional calories/protein if consumed. Weight / BMI Weight Weight: 143 lb 1.28 oz Body Mass Index (BMI) 23.8 ABG / Lab / Microbiology Data Result Diagrams: 08/01/22 06:30 08/01/22 06:30 Meaningful Use Info Meaningful Use Diagnoses (Choose all that apply): None applicable Discharge Plan Admission Admit Date/Time: 07/30/22 20:39 Attending Provider: Jose Mora Primary Care Provider: Candis Hui Consulting Providers: Estela Hutchinson ; Jose Luna ; Gladys Chapin Discharge Orders/Prescriptions Prescriptions: Continued omega-3 fatty acids [Fish Oil Concentrate] 1,000 mg capsule 1,000 mg PO BID biotin 10,000 mcg capsule 10,000 mcg PO DAILY gabapentin 100 mg capsule 100 mg PO BID metoprolol tartrate 50 MG tablet 50 mg PO BID Label Comments: Blood Pressure and Heart Rate multivitamin 1 EACH tablet 1 ea PO DAILY omeprazole magnesium 20 MG tablet,delayed release (DR/EC) 40 mg PO DAILY atorvastatin 40 MG tablet 40 mg PO QHS Qty: 30 0RF triamcinolone acetonide 1 APPLIC cream 1 applic TOPICAL BID PRN (Reason: Itching) albuterol sulfate 2.5 MG/3 ML solution for nebulization 2.5 mg INHALATION Q2H PRN PRN (Reason: SOB/Wheezing) 0RF melatonin 3 MG tablet 3 mg PO QHS PRN PRN (Reason: Insomnia) 0RF furosemide 40 MG tablet 40 mg PO DAILY levothyroxine 50 MCG tablet 50 mcg PO DAILY apixaban 2.5 MG tablet 2.5 mg PO BID cephalexin 500 mg capsule 500 mg PO TID 7 Days Qty: 21 0RF potassium chloride 20 mEq tablet extended release 20 meq PO BID lidocaine 4 % Adhesive Patch,Medicated 1 patch TOPICAL BID PRN (Reason: Pain) sertraline 100 mg Tablet 100 mg PO QHS meclizine 12.5 mg tablet 12.5 mg PO BID PRN (Reason: dizziness and giddiness) tramadol 50 mg Tablet 50 mg PO Q6H PRN PRN (Reason: Pain) bisacodyl 5 mg Tablet,Delayed Release (Dr/Ec) 10 mg PO DAILY PRN (Reason: Constipation) fluticasone propionate 50 mcg/actuation spray,suspension 1 spray INTRANASAL DAILY PRN (Reason: allergies) Rx Instructions: yasmin nares calcium citrate 200 mg (950 mg) Tablet 600 mg PO DAILY glucosamine-chondroitin [Osteo Bi-Flex] 250-200 mg Tablet 1 tab PO BID Rx Instructions: give after food/meal methyl salicylate-menthol 15-10 % Cream 1 applic TOPICAL Q4H PRN (Reason: Pain) Flexeril 5 mg PO/SL TID PRN PRN (Reason: Pain) acetaminophen 500 mg Tablet 1,000 mg PO Q6H PRN (Reason: Pain) Referrals / Follow Up: Candis Hui MD [Primary Care Provider] - Philippe Wolf DO [Med Staff - Active Staff] - Within 1 Month Disposition Disposition (needs filled in before D/C Order can be placed): [facility] Facility Charges/Coding Visit Charges Inpatient E&M: 08035 Disch Hosp >30min
--- NOTE | 2022-08-03 09:26 | CASEMGMT ---
Updated Angelita at [facility] that pt will dc today. Resumed PT and [employer] and added OT.
[2022-08-03] MEDS: Menthol/Lanolin/Calamine/Znox 113 GM Tube 1 APPLIC TOPICAL (10:30)
--- NOTE | 2022-08-03 11:24 | CASEMGMT ---
Social Work? EDISON notified pt of discharge today. EDISON called pt son, Jose and left message regarding discharge back to [facility] today. Jose stated yesterday that preference for transport would be ambulance due to pt spine fracture. EDISON set up cot transportation through [facility] for 2:30 pm. Called [facility] with transport time and notification that pt would be returning to facility today. EDISON faxed all discharge orders to [facility] and notified of discharge time. EDISON notified pt nurse of transport time. EDISON made copies of discharge orders and placed on pt chart. Sent original orders in envelope with pt upon discharge.?? Disposition: [facility] ROSA Miller? ?
[2022-08-03 13:48] VITALS: BP 110/68; PULSE 77; RESP 16; TEMP 36.4; O2SAT 95
--- NOTE | 2022-08-03 14:10 | NURSING ---
Report called to Ale kuo, at [place].
--- NOTE | 2022-08-03 14:49 | NURSING ---
Cheryl the daughter notified that pt is returning to [place], and will be leaving in a few minutes.
== END 2022-08-03 14:50 | disposition home or self-care (01) | DRG 552 ==
LOC: ED 20:36 → MS3 21:14
PROVIDERS: Nurse Practitioner; Student in an Organized Health Care Education/Training Program; Admitting Provider Family Medicine; Emergency Provider Emergency Medicine; PCP Family Medicine; Visit Provider Family Medicine
DX: S32.019A Unspecified fracture of first lumbar vertebra, initial encounter for closed fracture (principal); E44.0 Moderate protein-calorie malnutrition; F01.53 Vascular dementia, unspecified severity, with mood disturbance; I48.0 Paroxysmal atrial fibrillation; E03.9 Hypothyroidism, unspecified; E78.5 Hyperlipidemia, unspecified; K21.9 Gastro-esophageal reflux disease without esophagitis; I10 Essential (primary) hypertension; M48.061 Spinal stenosis, lumbar region without neurogenic claudication; F41.9 Anxiety disorder, unspecified; W01.190A Fall on same level from slipping, tripping and stumbling with subsequent striking against furniture, initial encounter; G89.29 Other chronic pain; F32.A Depression, unspecified; R29.6 Repeated falls; Z66 Do not resuscitate; Z68.23 Body mass index [BMI] 23.0-23.9, adult; Z79.01 Long term (current) use of anticoagulants; Z79.899 Other long term (current) drug therapy; Z86.73 Personal history of transient ischemic attack (TIA), and cerebral infarction without residual deficits
CPT/HCPCS: 36415; 70450; 72125; 72131; 72148; 80048; 80053; 81001; 85025; 93005; 94668; 97116; 97162; 97166; 97530; 97535; 97802; 99252; 99282; A4216; G0463; J2405

== ENCOUNTER 2022-08-05 19:56 | Emergency (ER) | payer MEDICARE, SELFPAY ==
[2022-08-05 19:57] VITALS: BP 159/93; PULSE 104; RESP 16; TEMP 36.1; O2SAT 98; BMI 25.1
--- NOTE | 2022-08-05 20:05 | CT_ITS ---
STUDY: CT BRAIN WITHOUT CONTRAST REASON FOR EXAM: Female, 86 years old. trauma Individualized dose optimization techniques were used for this CT. TECHNIQUE: Transaxial CT imaging of the brain was performed without administration of intravenous contrast material. COMPARISON: None FINDINGS: There are calcifications around the carotid artery. These are noted in the cavernous carotid arteries. Normal calvarium. There is no underlying fracture. Soft tissue swelling of the scalp- posteriorly. There is mild cerebral atrophy with widening of the extra-axial spaces and ventricular dilatation. There are areas of decreased attenuation within the white matter tracts of the supratentorial brain, consistent with microvascular disease changes. Normal basal ganglia and thalami. Normal brainstem. There is mild cerebellar atrophy. There is no intracranial hemorrhage. There are no findings of an acute ischemic infarction. Degenerative changes of the mandibular condyles. ASPECTS Score for Acute Strokes: 02/28 CT/Brain/Head without Contrast IMPRESSION: There is no underlying fracture. Soft tissue swelling of the scalp- posteriorly. Chronic involutional changes of the brain. Electronically Signed: Kevin Pan MD at 20:53 EDT ,
--- NOTE | 2022-08-05 20:05 | CT_ITS ---
EXAM: CT SPINE - CERVICAL WITHOUT IV REASON FOR EXAM: Female, 86 years old. NECK PAIN trauma HISTORY: NECK PAIN trauma Individualized dose optimization techniques were used for this CT. TECHNIQUE: Multiplanar images were obtained of the cervical spine. IV contrast was not utilized. COMPARISON: None. FINDINGS: The vertebral bodies do maintain their height. The odontoid process is intact. No pre-vertebral soft tissue swelling is seen. The intravertebral disc height is lost. There are scattered lymph nodes in the neck. There are degenerative changes of the osseous structures. There is bilateral facet arthropathy. There are scattered levels of foraminal stenosis. There are vascular calcifications. Degenerative changes of the mandibular condyles. CT/Spine Cervical without Contras IMPRESSION: Degenerative changes of the cervical spine. There are no acute findings. Electronically Signed: Kevin Pan MD at 21:00 EDT ,
--- NOTE | 2022-08-05 20:06 | EX.ED.GENINJ ---
HPI History of Present Illness Chief Complaint: Head Injury Informant: patient and EMS Narrative Narrative: Patient presents via EMS after a fall. She states she often loses her balance and falls backwards and this is what happened tonight. She struck the back of her head. There is no loss of consciousness. Patient is on Eliquis secondary to history of A-fib. She denies neck pain. She states she hit her left elbow but it is not painful at this time and she is able to move it without difficulty. She states she did get up and ambulate after her fall. [facility] Medical History Anxiety and depression CVA (cerebral vascular accident) (11/16/17) Essential (primary) hypertension GERD (gastroesophageal reflux disease) Hyperlipidemia Hypothyroidism Non-rheumatic aortic stenosis Nonsustained ventricular tachycardia PAF (paroxysmal atrial fibrillation) Rib fracture Secondary pulmonary arterial hypertension Vascular dementia Home Medications metoprolol tartrate 50 mg tablet 50 mg PO BID BLOOD PRESSURE 05/13/14 [History Last Taken 08/31/20 08:00] multivitamin 1 ea PO DAILY supplement 11/16/17 [History Last Taken 08/31/20 08:00] omeprazole magnesium 20 mg tablet,delayed release 40 mg PO DAILY acid reflux 11/16/17 [History Last Taken 08/31/20 08:00] atorvastatin 40 mg tablet 40 mg PO QHS cholesterol #30 tabs 12/12/17 [Rx Last Taken 08/30/20 21:00] biotin 10,000 mcg capsule 10,000 mcg PO DAILY health maintenance 02/04/20 [History Last Taken 08/31/20 08:00] omega-3 fatty acids 1,000 mg capsule (Fish Oil Concentrate) 1,000 mg PO BID health maintenance 02/04/20 [History Last Taken 08/30/20 08:00] triamcinolone acetonide 0.5 % topical cream 1 applic topical BID PRN Itching 08/31/20 [History Last Taken Unknown] albuterol sulfate 2.5 mg/3 mL (0.083 %) solution for nebulization 2.5 mg (3 mL) inhalation Q2H PRN PRN SOB/Wheezing 09/01/20 [Rx Last Taken Unknown] apixaban 2.5 mg tablet 2.5 mg PO BID blood thinner 09/01/20 [History Last Taken Unknown] furosemide 40 mg tablet 40 mg PO DAILY HTN 09/01/20 [History Last Taken Unknown] levothyroxine 50 mcg tablet 50 mcg PO DAILY thyroid 09/01/20 [History Last Taken Unknown] melatonin 3 mg tablet 3 mg PO QHS PRN PRN Insomnia 09/01/20 [Rx Last Taken Unknown] gabapentin 100 mg capsule 100 mg PO BID pain 05/13/21 [History Last Taken Unknown] cephalexin 500 mg capsule 500 mg PO TID 7 days #21 caps 06/25/22 [Rx Last Taken Unknown] Flexeril 5 mg PO/SL TID PRN PRN Pain 07/30/22 [History Last Taken Unknown] acetaminophen 500 mg tablet 1,000 mg PO Q6H PRN Pain 07/30/22 [History Last Taken Unknown] bisacodyl 5 mg tablet,delayed release 10 mg PO DAILY PRN Constipation 07/30/22 [History Last Taken Unknown] calcium citrate 200 mg (950 mg) tablet 600 mg PO DAILY health 07/30/22 [History Last Taken Unknown] fluticasone propionate 50 mcg/actuation nasal spray,suspension 1 spray intranasal DAILY PRN allergies 07/30/22 [History Last Taken Unknown] glucosamine-chondroitin 250 mg-200 mg tablet (Osteo Bi-Flex) 1 tab PO BID arthritis 07/30/22 [History Last Taken Unknown] lidocaine 4 % topical patch 1 patch topical BID PRN Pain 07/30/22 [History Last Taken Unknown] meclizine 12.5 mg tablet 12.5 mg PO BID PRN dizziness and giddiness 07/30/22 [History Last Taken Unknown] methyl salicylate 15 %-menthol 10 % topical cream 1 applic topical Q4H PRN Pain 07/30/22 [History Last Taken Unknown] potassium chloride 20 mEq tablet,extended release 20 meq PO BID hypokalemia 07/30/22 [History Last Taken Unknown] sertraline 100 mg tablet 100 mg PO QHS depression 07/30/22 [History Last Taken Unknown] tramadol 50 mg tablet 50 mg PO Q6H PRN PRN Pain 07/30/22 [History Last Taken Unknown] Allergy/AdvReac Type Severity Reaction Status Date / Time adhesive Allergy Intermediate rash Verified 08/05/22 19:59 aspirin Allergy Hives Verified 08/05/22 19:59 tetanus immune globulin Allergy Hives Verified 08/05/22 19:59 lidocaine AdvReac Rash Verified 08/05/22 19:59 sulfamethoxazole AdvReac Rash Verified 08/05/22 19:59 [From Bactrim] trimethoprim [From Bactrim] AdvReac Rash Verified 08/05/22 19:59 Family History Mother Heart disease CVA (cerebral vascular accident) Father Kidney disease Surgical History History of cholecystectomy S/P breast biopsy Social History housing: assisted living facility Smoking Status: Never smoker alcohol intake: never substance use type: does not use caffeine: No ROS ROS ED Constitutional Constitutional ED: Denies chills or fever(s) Eyes Eyes: Denies discharge from eye(s) ENT ENT ED: Denies discharge from eye(s), rhinorrhea or sore throat Cardiovascular Cardiovascular: Denies chest pain or palpitations Respiratory/Chest Respiratory/Chest: Denies cough or dyspnea Gastrointestinal Gastrointestinal: Denies abdominal pain, diarrhea, nausea or vomiting Genitourinary Genitourinary ED: Denies dysuria Musculoskeletal Musculoskeletal: Denies back pain or extremity pain Integumentary Denies Abrasions or rash Neurologic Neurologic: Reports headache(s); Denies weakness Psychiatric Psychiatric: Denies anxiety or depression Allergic/Immunologic Allergic/Immunologic ED: Denies lip swelling or urticaria EXAM Physical Exam Const Vital Signs: 08/05/22 19:57 08/05/22 20:00 Temperature 97 F L Temperature Source Temporal Pulse Rate 104 H Respiratory Rate 16 Respiratory Effort Normal Non-Labored Respiratory Depth Normal Respiratory Pattern Normal Blood Pressure 159/93 H Blood Pressure Mean 115 Pulse Ox 98 Oxygen Delivery Method Room Air Room Air Positive well nourished and well developed General Appearance ED: well developed HEENT Reports normocephalic HEENT Narrative: Right posterior parietal scalp hematoma. No laceration. Eyes PERRL and EOMs intact bilaterally Neck supple Chest Wall inspection of chest normal and palpation of chest normal Resp normal respiratory effort and clear to auscultation bilaterally Cardio regular rate and regular rhythm GI normal to inspection, nondistended, normoactive bowel sounds Palpation: soft Extremity normal to inspection Neuro no sensory deficits noted Sensorium / Orientation: alert Motor Exam: strength 5/5 throughout Psych mental status grossly normal Skin no rashes or lesions noted MDM MDM MDM Narrative Medical decision making narrative: Patient sent for CT scan of the head and C-spine given her fall with hematoma and anticoagulant use. Radiography Diagnostic Testing: Clinical Impression(s) from Imaging Studies Brain CT 08/05/22 20:05 IMPRESSION: There is no underlying fracture. Soft tissue swelling of the scalp- posteriorly. Chronic involutional changes of the brain. Electronically Signed: Kevin Pan MD at 20:53 EDT , Cervical Spine CT 08/05/22 20:05 IMPRESSION: Degenerative changes of the cervical spine. There are no acute findings. Electronically Signed: Kevin Pan MD at 21:00 EDT , Treatment and Re-Evaluation Narrative: CT head reveals no underlying fracture. Soft tissue swelling is noted posteriorly. CT of the C-spine shows degenerative changes with no acute fracture. Patient updated with test results. She will be discharged back to [place]. Discharge Plan Triage Chief Complaint: Head Injury ED Provider: Anna Fernandez Dx/Rx/DC Orders Clinical Impression: Fall, Contusion of scalp Instructions: ED Head Injury (Adult), ED FALL-from [id number] Prescriptions: No Action omega-3 fatty acids [Fish Oil Concentrate] 1,000 mg capsule 1,000 mg PO BID biotin 10,000 mcg capsule 10,000 mcg PO DAILY gabapentin 100 mg capsule 100 mg PO BID metoprolol tartrate 50 MG tablet 50 mg PO BID Label Comments: Blood Pressure and Heart Rate multivitamin 1 EACH tablet 1 ea PO DAILY omeprazole magnesium 20 MG tablet,delayed release (DR/EC) 40 mg PO DAILY atorvastatin 40 MG tablet 40 mg PO QHS Qty: 30 0RF triamcinolone acetonide 1 APPLIC cream 1 applic TOPICAL BID PRN (Reason: Itching) albuterol sulfate 2.5 MG/3 ML solution for nebulization 2.5 mg INHALATION Q2H PRN PRN (Reason: SOB/Wheezing) 0RF melatonin 3 MG tablet 3 mg PO QHS PRN PRN (Reason: Insomnia) 0RF furosemide 40 MG tablet 40 mg PO DAILY levothyroxine 50 MCG tablet 50 mcg PO DAILY apixaban 2.5 MG tablet 2.5 mg PO BID cephalexin 500 mg capsule 500 mg PO TID 7 Days Qty: 21 0RF potassium chloride 20 mEq tablet extended release 20 meq PO BID lidocaine 4 % Adhesive Patch,Medicated 1 patch TOPICAL BID PRN (Reason: Pain) sertraline 100 mg Tablet 100 mg PO QHS meclizine 12.5 mg tablet 12.5 mg PO BID PRN (Reason: dizziness and giddiness) tramadol 50 mg Tablet 50 mg PO Q6H PRN PRN (Reason: Pain) bisacodyl 5 mg Tablet,Delayed Release (Dr/Ec) 10 mg PO DAILY PRN (Reason: Constipation) fluticasone propionate 50 mcg/actuation spray,suspension 1 spray INTRANASAL DAILY PRN (Reason: allergies) Rx Instructions: yasmin nares calcium citrate 200 mg (950 mg) Tablet 600 mg PO DAILY glucosamine-chondroitin [Osteo Bi-Flex] 250-200 mg Tablet 1 tab PO BID Rx Instructions: give after food/meal methyl salicylate-menthol 15-10 % Cream 1 applic TOPICAL Q4H PRN (Reason: Pain) Flexeril 5 mg PO/SL TID PRN PRN (Reason: Pain) acetaminophen 500 mg Tablet 1,000 mg PO Q6H PRN (Reason: Pain) Primary Care Provider: Candis Hui Referrals: Candis Hui MD [Primary Care Provider] - As Needed Disposition Disposition: [facility] Facility Discharge Location: [facility]
== END 2022-08-05 21:33 | disposition skilled nursing facility (03) ==
PROVIDERS: Emergency Provider Emergency Medicine; PCP Family Medicine; Visit Provider Emergency Medicine
DX: S00.03XA Contusion of scalp, initial encounter (principal); I48.0 Paroxysmal atrial fibrillation; W19.XXXA Unspecified fall, initial encounter; I10 Essential (primary) hypertension; E78.5 Hyperlipidemia, unspecified; Z79.01 Long term (current) use of anticoagulants; Z79.899 Other long term (current) drug therapy; Z86.73 Personal history of transient ischemic attack (TIA), and cerebral infarction without residual deficits
CPT/HCPCS: 70450; 72125; 99284

== ENCOUNTER → 2022-08-06 | Outpatient (REF) | payer MEDICARE, SELFPAY ==
[2022-08-06 11:34] LABS: Color, Urine Yellow (Yellow); Glucose, Dipstick Normal (Normal); Ketone-Dipstick Negative (Negative); Leukocyte Esterase-Dipstick 100 /ul (Negative); Nitrite-Dipstick Negative (Negative); Occult Blood-Urine Negative /ul (Negative); Protein-Dipstick Negative (Negative); Specific Gravity, Urine 1.015 (1.002-1.030); Urine Bilirubin Dipstick Negative (Negative); Urine Clarity Clear (Clear); Urine Urobilinogen Normal (Normal)
== END ==
PROVIDERS: PCP Family Medicine; Visit Provider Family Medicine
DX: R41.82 Altered mental status, unspecified (principal); Z79.899 Other long term (current) drug therapy
CPT/HCPCS: 81002; 87086; 87088

== ENCOUNTER 2022-08-11 16:13 | Emergency (ER) | payer MEDICARE, SELFPAY ==
[2022-08-11 16:14] VITALS: BP 126/92; PULSE 70; RESP 18; TEMP 36.3; O2SAT 96; BMI 24.2
--- NOTE | 2022-08-11 16:46 | CT_ITS ---
STUDY: CT BRAIN WITHOUT CONTRAST REASON FOR EXAM: Female, 86 years old. Head injury. RADIATION DOSAGE (If Supplied By Facility): CTDIvol = ( 44.99 ) mGy, DLP = ( 829.85 ) mGycm TECHNIQUE: Transaxial CT imaging of the brain was performed without administration of intravenous contrast material. Individualized dose optimization techniques were used for this CT. COMPARISON: CT of the head, August 05, 2022 FINDINGS: Normal soft tissue structures. Normal calvarium. There is mild cerebral atrophy with widening of the extra-axial spaces and ventricular dilatation. There are areas of decreased attenuation within the white matter tracts of the supratentorial brain, consistent with microvascular disease changes. Normal basal ganglia and thalami. Normal brainstem. Normal cerebellum. There is no intracranial hemorrhage. There are no findings of an acute ischemic infarction. Normal visualized paranasal sinuses. CT/Brain/Head without Contrast IMPRESSION: Chronic involutional changes without evidence of acute intracranial or calvarial abnormality. No significant interval change. A[facility]OC was utilized to assist in identifying pertinent positive findings in this case. Electronically Signed: Sage Alvarez DO at 17:18 EDT Reading Location ID and State: [address] [place] [address] Tel [phone], Service support ,
--- NOTE | 2022-08-11 16:46 | EKG12_ITS ---
Test Reason : FALL Blood Pressure : / mmHG Vent. Rate : 114 BPM Atrial Rate : 000 BPM P-R Int : 000 ms QRS Dur : 076 ms QT Int : 334 ms P-R-T Axes : 000 -89 011 degrees QTc Int : 460 ms Atrial fibrillation with rapid ventricular response Left axis deviation Nonspecific ST and T wave abnormality Abnormal ECG Confirmed by URSULA SLOAN, ELIANA ([id number]), mapping editor RICKEY ENGLAND ([id number]) on 08/12/2022 10:53:50 AM Referred By: Confirmed By:ELIANA VERGARA MD
--- NOTE | 2022-08-11 16:47 | EDS_ITS ---
HPI HPI - Fall History of Present Illness Chief Complaint: Fall Narrative Narrative: 86-year-old female with generalized weakness. She states she was walking to the restroom and her legs felt rubbery. She states she fell hitting her head on the right side. No LOC. Patient states he is on Eliquis 2.5 mg p.o. twice daily. She denies chest pain or shortness of breath. Denies abdominal pain. She denies urinary or vaginal complaints. She states initially had a headache but does not have one anymore. No dizziness or lightheadedness currently. No nausea or vomiting PFSH PFSH Medical History Anxiety and depression CVA (cerebral vascular accident) (11/16/17) Essential (primary) hypertension GERD (gastroesophageal reflux disease) Hyperlipidemia Hypothyroidism Intractable back pain Non-rheumatic aortic stenosis Nonsustained ventricular tachycardia PAF (paroxysmal atrial fibrillation) Recurrent falls Rib fracture Secondary pulmonary arterial hypertension Traumatic fracture of spine at T12-L1 level Vascular dementia Home Medications metoprolol tartrate 50 mg tablet 50 mg PO BID BLOOD PRESSURE 05/13/14 [History Last Taken 08/31/20 08:00] multivitamin 1 ea PO DAILY supplement 11/16/17 [History Last Taken 08/31/20 08:00] omeprazole magnesium 20 mg tablet,delayed release 40 mg PO DAILY acid reflux 11/16/17 [History Last Taken 08/31/20 08:00] atorvastatin 40 mg tablet 40 mg PO QHS cholesterol #30 tabs 12/12/17 [Rx Last Taken 08/30/20 21:00] biotin 10,000 mcg capsule 10,000 mcg PO DAILY health maintenance 02/04/20 [History Last Taken 08/31/20 08:00] omega-3 fatty acids 1,000 mg capsule (Fish Oil Concentrate) 1,000 mg PO BID health maintenance 02/04/20 [History Last Taken 08/30/20 08:00] triamcinolone acetonide 0.5 % topical cream 1 applic topical BID PRN Itching 08/31/20 [History Last Taken Unknown] albuterol sulfate 2.5 mg/3 mL (0.083 %) solution for nebulization 2.5 mg (3 mL) inhalation Q2H PRN PRN SOB/Wheezing 09/01/20 [Rx Last Taken Unknown] apixaban 2.5 mg tablet 2.5 mg PO BID blood thinner 09/01/20 [History Last Taken Unknown] furosemide 40 mg tablet 40 mg PO DAILY HTN 09/01/20 [History Last Taken Unknown] levothyroxine 50 mcg tablet 50 mcg PO DAILY thyroid 09/01/20 [History Last Taken Unknown] melatonin 3 mg tablet 3 mg PO QHS PRN PRN Insomnia 09/01/20 [Rx Last Taken Unknown] gabapentin 100 mg capsule 100 mg PO BID pain 05/13/21 [History Last Taken Unknown] cephalexin 500 mg capsule 500 mg PO TID 7 days #21 caps 06/25/22 [Rx Last Taken Unknown] Flexeril 5 mg PO/SL TID PRN PRN Pain 07/30/22 [History Last Taken Unknown] acetaminophen 500 mg tablet 1,000 mg PO Q6H PRN Pain 07/30/22 [History Last Taken Unknown] bisacodyl 5 mg tablet,delayed release 10 mg PO DAILY PRN Constipation 07/30/22 [History Last Taken Unknown] calcium citrate 200 mg (950 mg) tablet 600 mg PO DAILY health 07/30/22 [History Last Taken Unknown] fluticasone propionate 50 mcg/actuation nasal spray,suspension 1 spray intranasal DAILY PRN allergies 07/30/22 [History Last Taken Unknown] glucosamine-chondroitin 250 mg-200 mg tablet (Osteo Bi-Flex) 1 tab PO BID art hritis 07/30/22 [History Last Taken Unknown] lidocaine 4 % topical patch 1 patch topical BID PRN Pain 07/30/22 [History Last Taken Unknown] meclizine 12.5 mg tablet 12.5 mg PO BID PRN dizziness and giddiness 07/30/22 [History Last Taken Unknown] methyl salicylate 15 %-menthol 10 % topical cream 1 applic topical Q4H PRN Pain 07/30/22 [History Last Taken Unknown] potassium chloride 20 mEq tablet,extended release 20 meq PO BID hypokalemia 07/30/22 [History Last Taken Unknown] sertraline 100 mg tablet 100 mg PO QHS depression 07/30/22 [History Last Taken Unknown] tramadol 50 mg tablet 50 mg PO Q6H PRN PRN Pain 07/30/22 [History Last Taken Unknown] Allergy/AdvReac Type Severity Reaction Status Date / Time adhesive Allergy Intermediate rash Verified 08/11/22 16:13 aspirin Allergy Hives Verified 08/11/22 16:13 tetanus immune globulin Allergy Hives Verified 08/11/22 16:13 lidocaine AdvReac Rash Verified 08/11/22 16:13 sulfamethoxazole AdvReac Rash Verified 08/11/22 16:13 [From Bactrim] trimethoprim [From Bactrim] AdvReac Rash Verified 08/11/22 16:13 Family History Mother Heart disease CVA (cerebral vascular accident) Father Kidney disease Surgical History History of cholecystectomy S/P breast biopsy Social History housing: assisted living facility Smoking Status: Never smoker alcohol intake: never substance use type: does not use caffeine: No ROS ROS ED Constitutional Constitutional ED: Denies chills or fever(s) Eyes Eyes: Denies change in vision or diplopia ENT ENT ED: Denies rhinorrhea or sore throat Cardiovascular Cardiovascular: Denies chest pain or palpitations Respiratory/Chest Respiratory/Chest: Denies cough or dyspnea Gastrointestinal Gastrointestinal: Denies abdominal pain, nausea or vomiting Genitourinary Genitourinary ED: Denies dysuria or hematuria Musculoskeletal Musculoskeletal: Denies arthralgias Integumentary Denies abscess Neurologic Neurologic: Denies headache(s) Psychiatric Psychiatric: Denies anxiety or depression EXAM Physical Exam Const Vital Signs: 08/11/22 16:14 08/11/22 16:22 08/11/22 17:13 Temperature 97.3 F L Temperature Source Temporal Pulse Rate 70 Respiratory Rate 18 18 Respiratory Effort Normal Non-Labored Respiratory Depth Normal Respiratory Pattern Normal Blood Pressure 126/92 H Blood Pressure Mean 103 Pulse Ox 96 Oxygen Delivery Method Room Air Room Air 08/11/22 19:00 Temperature Temperature Source Pulse Rate Respiratory Rate Respiratory Effort Respiratory Depth Respiratory Pattern Blood Pressure 108/84 H Blood Pressure Mean 92 Pulse Ox Oxygen Delivery Method Positive well nourished General Appearance ED: NAD HEENT Reports normocephalic atraumatic Eyes PERRL and EOMs intact bilaterally Neck full ROM and no lymphadenopathy Chest Wall inspection of chest normal Resp normal respiratory effort and no retractions Auscultation: Negative for rales, rhonchi or wheezes Cardio regular rate and regular rhythm GI non-tender Neuro oriented x3, moves all extremities and no focal motor deficits Sensorium / Orientation: alert Motor Exam: general weakness Psych mental status grossly normal MDM MDM MDM Narrative Medical decision making narrative: Patient states she felt like her legs came out from under her and she fell. She hit her head without LOC. She is on Eliquis. Patient with recent diagnosis of L1 compression fracture and continues to have some pain here. She states she is managed with Ultram and muscle relaxers. She was seen by Dr. Wolf and does not want surgery. No loss of bladder or bowel control. No saddle anesthesia. CBC was obtained to assess white blood cell count, hemoglobin, platelets, differential. BMP to assess renal function, electrolytes, glucose. EKG was obtained to assess for arrhythmia/dysrhythmia as well as high-sensitivity troponin and chest x-ray due to weakness. Urinalysis will be obtained to rule out UTI/. EKG shows atrial fibrillation at a rate of 114 bpm without sign of ischemic change and my interpretation. High-sensitivity troponin came back at 9. Patient not reporting any chest pain chest leg weakness. CBC and BMP unremarkable. Urinalysis negative for infection. Chest x-ray my interpretation shows no acute process. Radiology services and agrees. Patient complaining of back pain although she did not injure herself more today. She was given Ultram. I did obtain another x-ray of the lumbar spine since she is refusing to get up and ambulate. X-ray of the lumbar spine was obtained and does not show any acute fracture my interpretation. Radiology does not see the previous fracture either. Patient will be kept to be ambulated after Ultram. Apparently she has appointment with palliative care tomorrow. Miguel is at the bedside to help her. He does note that she is walking better than she was. The he will help her get to the car and will take her back to the facility. Impression: 1. Fall 2. History of L1 compression fracture 3. Closed head injury 4. Generalized weakness Lab Data Labs: Laboratory Results - last 24 hr 08/11/22 08/11/22 08/11/22 16:37 16:37 17:49 WBC 9.7 RBC 5.33 Hgb 15.8 H Hct 47.7 H MCV 89.5 MCH 29.6 MCHC 33.1 RDW Std Deviation 45.6 H RDW Coeff of Krissy 14.1 Plt Count 310 MPV 11.5 Immature Gran % (Auto) 0.700 Neut % (Auto) 67.8 Lymph % (Auto) 19.9 [place] % (Auto) 7.5 Eos % (Auto) 3.6 Baso % (Auto) 0.5 Absolute Neuts (auto) 6.6 Absolute Lymphs (auto) 1.92 Nucleated RBC % 0 Sodium 137 Potassium 4.0 Chloride 105 Carbon Dioxide 24.0 Anion Gap 8 BUN 11 Creatinine 0.87 Estim Creat Clear Calc 40.99 Est GFR (MDRD) Af Amer 79 Est GFR (MDRD) Non-Af 66 BUN/Creatinine Ratio 12.7 Glucose 116 H Calcium 9.2 Troponin I High Sens 9 Urine Color Yellow Urine Clarity Clear Urine pH 5.0 Ur Specific [place] 1.015 Urine Protein Negative Urine Glucose (UA) Normal Urine Ketones Negative Urine Occult Blood 25 H Urine Nitrite Negative Urine Bilirubin Negative Urine Urobilinogen Normal Ur Leukocyte Esterase 500 H Urine RBC 0-5 SEEN Urine WBC 0-5 SEEN Ur Squamous Epith Cells 0 SEEN Urine Bacteria 0 SEEN Urine Mucus 0 SEEN Radiography Diagnostic Testing: Clinical Impression(s) from Imaging Studies Brain CT 08/11/22 16:46 IMPRESSION: Chronic involutional changes without evidence of acute intracranial or calvarial abnormality. No significant interval change. AIDOC was utilized to assist in identifying pertinent positive findings in this case. Electronically Signed: Sage Alvarez DO at 17:18 EDT Reading Location ID and State: [address] [place] [address] Tel [phone], Service support , Chest X-Ray 08/11/22 17:00 IMPRESSION: Degenerative changes, as described above. No demonstrated acute cardiopulmonary process. No major interval change. Electronically Signed: Sage Alvarez DO at 17:30 EDT Reading Location ID and State: [address] [place] [address] Tel [phone], Service support , Lumbar Spine X-Ray 08/11/22 20:10 IMPRESSION: Scoliosis and degenerative changes of the lumbar spine visualized fracture or dislocation. The L1 fracture seen on the earlier CT is not well visualized on the plain films. Electronically Signed: Sage Alvarez DO at 20:32 EDT Reading Location ID and State: [address] [place] [address] Tel [phone], Service support , Discharge Plan Triage Chief Complaint: Fall ED Provider: Alphonso Rodarte Dx/Rx/DC Orders Instructions: ED Back Pain (Acute or Chronic), ED Fall with Uncertain Cause, ED Head Injury (Adult) Prescriptions: No Action omega-3 fatty acids [Fish Oil Concentrate] 1,000 mg capsule 1,000 mg PO BID biotin 10,000 mcg capsule 10,000 mcg PO DAILY gabapentin 100 mg capsule 100 mg PO BID metoprolol tartrate 50 MG tablet 50 mg PO BID Label Comments: Blood Pressure and Heart Rate multivitamin 1 EACH tablet 1 ea PO DAILY omeprazole magnesium 20 MG tablet,delayed release (DR/EC) 40 mg PO DAILY atorvastatin 40 MG tablet 40 mg PO QHS Qty: 30 0RF triamcinolone acetonide 1 APPLIC cream 1 applic TOPICAL BID PRN (Reason: Itching) albuterol sulfate 2.5 MG/3 ML solution for nebulization 2.5 mg INHALATION Q2H PRN PRN (Reason: SOB/Wheezing) 0RF melatonin 3 MG tablet 3 mg PO QHS PRN PRN (Reason: Insomnia) 0RF furosemide 40 MG tablet 40 mg PO DAILY levothyroxine 50 MCG tablet 50 mcg PO DAILY apixaban 2.5 MG tablet 2.5 mg PO BID cephalexin 500 mg capsule 500 mg PO TID 7 Days Qty: 21 0RF potassium chloride 20 mEq tablet extended release 20 meq PO BID lidocaine 4 % Adhesive Patch,Medicated 1 patch TOPICAL BID PRN (Reason: Pain) sertraline 100 mg Tablet 100 mg PO QHS meclizine 12.5 mg tablet 12.5 mg PO BID PRN (Reason: dizziness and giddiness) tramadol 50 mg Tablet 50 mg PO Q6H PRN PRN (Reason: Pain) bisacodyl 5 mg Tablet,Delayed Release (Dr/Ec) 10 mg PO DAILY PRN (Reason: Constipation) fluticasone propionate 50 mcg/actuation spray,suspension 1 spray INTRANASAL DAILY PRN (Reason: allergies) Rx Instructions: yasmin nares calcium citrate 200 mg (950 mg) Tablet 600 mg PO DAILY glucosamine-chondroitin [Osteo Bi-Flex] 250-200 mg Tablet 1 tab PO BID Rx Instructions: give after food/meal methyl salicylate-menthol 15-10 % Cream 1 applic TOPICAL Q4H PRN (Reason: Pain) Flexeril 5 mg PO/SL TID PRN PRN (Reason: Pain) acetaminophen 500 mg Tablet 1,000 mg PO Q6H PRN (Reason: Pain) Primary Care Provider: Candis Hui Referrals: Candis Hui MD [Primary Care Provider] - Disposition Disposition: Home, Self Care
--- NOTE | 2022-08-11 17:00 | RAD_ITS ---
STUDY: X-RAY CHEST REASON FOR EXAM: Female, 86 years old. Weakness. Fall. TECHNIQUE: Single AP portable view of the chest. COMPARISON: May 29, 2020 FINDINGS: The lungs are clear and expanded. There is no demonstrated pleural abnormality. Normal size heart. Normal mediastinum and morelia. Normal visualized pulmonary arteries. There is atherosclerotic tortuosity of the aortic arch and descending thoracic aorta. Stable degenerative changes and scoliosis of the thoracolumbar spine There is degenerative osteoarthritis of the bilateral shoulders. There is no demonstrated abnormality of the visualized soft tissue structures of the upper abdomen. RAD/Chest 1 View (Portable) IMPRESSION: Degenerative changes, as described above. No demonstrated acute cardiopulmonary process. No major interval change. Electronically Signed: Sage Alvarez DO at 17:30 EDT ,
[2022-08-11 17:13] VITALS: RESP 18
[2022-08-11 17:15] LABS: Absolute Lymphocyte Count 1.92 X10^3/uL (0.83-4.51); Absolute Neutrophil Count 6.6 X10^3/uL (2.0-7.7); Basophil# 0.05 X10^3/uL; Basophil% 0.5 % (0-1); Eosinophil# 0.35 X10^3/uL; Eosinophils% 3.6 % (0-5); Hematocrit 47.7 % (37-47); Hemoglobin 15.8 g/dL (12.0-15.0); Lymphocyte # 1.92 X10^3/ul (0.83-4.51); Lymphocyte % 19.9 % (19-41); Mean Corp Hgb Conc 33.1 g/dL (32-36); Mean Corpuscular Hgb 29.6 pg (27.0-32.0); Mean Corpuscular Volume 89.5 fL (81-99); Mean Platelet Vol. 11.5 fl (6.2-12.0); Monocyte# 0.72 X10^3/uL; Monocyte% 7.5 % (0-10); NRBC Flagged by Analyzer 0 % (0-5); Neutrophil # 6.55 X10^3/uL (2.7-7.7); Neutrophil % 67.8 % (47-70); Platelet Count 310 K/mm3 (150-450); RBC Distribution Width CV 14.1 % (11.6-14.6); RBC Distribution Width SD 45.6 fl (35.1-43.9); Red Blood Count 5.33 M/mm3 (4.2-5.4); White Blood Count 9.7 K/mm3 (4.4-11.0)
[2022-08-11 17:47] LABS: Anion Gap 8 (5-15); BUN 11 mg/dL (7-18); BUN/Creat Ratio 12.7 RATIO (10-20); Calcium,Total 9.2 mg/dL (8.5-10.1); Chloride 105 mmol/L (98-107); Creatinine, Serum 0.87 mg/dL (0.55-1.02); EST Glomerular Filtration Rate 66 mL/min (>60); Est Glom Filt Rate - Afr Amer 79 mL/min (>60); Estimated Creatinine Clearance 40.99 ml/min; Glucose 116 mg/dL (74-106); Sodium Level 137 mmol/L (136-145); Troponin-I HS 9 pg/mL (3.0-54.0)
[2022-08-11 18:03] LABS: Bacteria 0 SEEN /hpf (None Seen); Mucous, Urine 0 SEEN /hpf (<or=2+); Squamous Epithelial Cells - UA 0 SEEN /hpf (5-10)
[2022-08-11 18:36] LABS: Color, Urine Yellow (Yellow); Glucose, Dipstick Normal (Normal); Ketone-Dipstick Negative (Negative); Leukocyte Esterase-Dipstick 500 /ul (Negative); Nitrite-Dipstick Negative (Negative); Occult Blood-Urine 25 /ul (Negative); Protein-Dipstick Negative (Negative); Specific Gravity, Urine 1.015 (1.002-1.030); Urine Bilirubin Dipstick Negative (Negative); Urine Clarity Clear (Clear); Urine Urobilinogen Normal (Normal)
[2022-08-11 18:55] LABS: Red Blood Cells-Urine 0-5 SEEN /hpf (0-5); White Blood Cells 0-5 SEEN /hpf (0-5)
[2022-08-11 19:00] VITALS: BP 108/84
[2022-08-11 20:00] VITALS: RESP 16
[2022-08-11] MEDS: traMADol 50 MG Tablet PO (20:03)
--- NOTE | 2022-08-11 20:10 | RAD_ITS ---
STUDY: X-RAY - LUMBAR SPINE REASON FOR EXAM: Female, 86 years old. Back pain. Recent fall. TECHNIQUE: 3 view(s) of the lumbar spine were obtained. COMPARISON: CT lumbar spine, July 30, 2022. FINDINGS: Reversal of normal cervical lordosis. Marked levoscoliosis. There is a normal alignment of the vertebrae. There is diffuse demineralization with multi-level endplate spondylosis. There is multi-level degenerative disc disease with multi-level disc space narrowing. The L1 fracture seen on CT is not appreciated. There is no loss of vertebral axial height.. There is atherosclerotic calcification of the abdominal aorta without a demonstrated aneurysm. RAD/Lumbar Spine 2 or 3 Views IMPRESSION: Scoliosis and degenerative changes of the lumbar spine visualized fracture or dislocation. The L1 fracture seen on the earlier CT is not well visualized on the plain films. Electronically Signed: Sage Alvarez DO at 20:32 EDT ,
--- NOTE | 2022-08-11 20:24 | CM.ED ---
Social Work Note Referral Source: FRANCISCO J Hatfield Referral Reason: AL Concerns FRANCISCO J Hatfield met with SW and reviewed patient's symptoms and concerns by patient's grandson regarding patient's current living arrangements at [facility] due to frequent falls. SW met with patient and patient's grandson, Jose, and introdcued herself and role as [facility] SW. SW inquired about patient's current living situation and concerns. Patient's grandson reports patient enjoys being at [facility] and he feels their staff is more attentive than a care home home facility. Patient's grandson explained they have only had issues with one nurse but hopes the patient is able to return to [facility] with Palliative services. SW provided them with information regarding intermediate designer care ombudsman, information regarding Palliative care and information for [facility]. Patient's grandson reports they have an appointment this week for an assessment with [facility] to discuss other services and has been in touch with local Palliative agency. No other needs voiced at this time. Ara Mathews MSW, ADAM
[2022-08-11 21:00] VITALS: BP 101/78
== END 2022-08-11 21:40 | disposition home or self-care (01) ==
PROVIDERS: Emergency Provider Student in an Organized Health Care Education/Training Program; PCP Family Medicine; Visit Provider Student in an Organized Health Care Education/Training Program
DX: S09.90XA Unspecified injury of head, initial encounter (principal); I48.0 Paroxysmal atrial fibrillation; W18.39XA Other fall on same level, initial encounter; Y93.01 Activity, walking, marching and hiking; Y99.8 Other external cause status; I10 Essential (primary) hypertension; E78.5 Hyperlipidemia, unspecified; E03.9 Hypothyroidism, unspecified; R29.6 Repeated falls; Z79.01 Long term (current) use of anticoagulants; Z79.899 Other long term (current) drug therapy; Z87.81 Personal history of (healed) traumatic fracture; Z86.73 Personal history of transient ischemic attack (TIA), and cerebral infarction without residual deficits
CPT/HCPCS: 70450; 71045; 72100; 80048; 81001; 84484; 85025; 93005; 99285; A4216

== ENCOUNTER 2023-07-15 20:28 | Emergency (ER) | payer MEDICARE, SELFPAY ==
[2023-07-15 20:30] VITALS: BP 159/114; PULSE 116; RESP 22; TEMP 36.2; O2SAT 95; BMI 22.3
--- NOTE | 2023-07-15 20:48 | EX.ED.DYSGE1 ---
HPI History of Present Illness Chief Complaint: Other, Pain/Inj Informant: patient Onset/Context/Timing Onset: Days (2-3) Context: Gradual Onset Timing: Continuous Quality: Confused, slurred speech Location: Generalized Worsened by: Nothing Relieved by: Nothing Narrative Narrative: Patient presents with generalized weakness, confusion, and slurred speech over the past 2 to 3 days. Patient fell 4 days ago. Patient states she hit the back of her head at that time. Family states patient has had decreased oral intake. Family states that the patient was recently switched from Ativan to Xanax because the Ativan was making her too sedated. Family states patient has been having some slurred speech and confusion. Family denies any fevers or chills. Patient admits to some nausea but denies any vomiting. Patient lives at an extended care facility. Patient is on hospice. Patient is DNR [facility] arrest. [facility] Medical History Anxiety and depression CVA (cerebral vascular accident) (11/16/17) Essential (primary) hypertension GERD (gastroesophageal reflux disease) Hyperlipidemia Hypothyroidism Intractable back pain Non-rheumatic aortic stenosis Nonsustained ventricular tachycardia PAF (paroxysmal atrial fibrillation) Recurrent falls Rib fracture Secondary pulmonary arterial hypertension Traumatic fracture of spine at T12-L1 level Vascular dementia Home Medications metoprolol tartrate 50 mg tablet 12.5 mg PO BID BLOOD PRESSURE 05/13/14 [History Last Taken 08/31/20 08:00] omeprazole magnesium 20 mg tablet,delayed release 40 mg PO DAILY acid reflux 11/16/17 [History Last Taken 08/31/20 08:00] triamcinolone acetonide 0.5 % topical cream 1 applic topical BID PRN Itching 08/31/20 [History Last Taken Unknown] albuterol sulfate 2.5 mg/3 mL (0.083 %) solution for nebulization 2.5 mg (3 mL) inhalation Q2H PRN PRN SOB/Wheezing 09/01/20 [Rx Last Taken Unknown] furosemide 40 mg tablet 40 mg PO DAILY HTN 09/01/20 [History Last Taken Unknown] levothyroxine 50 mcg tablet 50 mcg PO DAILY thyroid 09/01/20 [History Last Taken Unknown] gabapentin 100 mg capsule 100 mg PO BID pain 05/13/21 [History Last Taken Unknown] acetaminophen 500 mg tablet 1,000 mg PO Q6H PRN Pain 07/30/22 [History Last Taken Unknown] bisacodyl 5 mg tablet,delayed release 10 mg PO DAILY PRN Constipation 07/30/22 [History Last Taken Unknown] meclizine 12.5 mg tablet 12.5 mg PO BID PRN dizziness and giddiness 07/30/22 [History Last Taken Unknown] potassium chloride 20 mEq tablet,extended release 20 meq PO BID hypokalemia 07/30/22 [History Last Taken Unknown] sertraline 100 mg tablet 100 mg PO QHS depression 07/30/22 [History Last Taken Unknown] cephalexin 500 mg capsule 500 mg PO Q6 #28 CAPSULES 07/15/23 [Rx Last Taken Unknown] olanzapine 2.5 mg tablet 2.5 mg PO TID 07/15/23 [History Last Taken Unknown] oxybutynin chloride 15 mg tablet,extended release 24 hr 15 mg PO DAILY 07/15/23 [History Last Taken Unknown] oxycodone 5 mg tablet 5 mg PO Q6H 07/15/23 [History Last Taken Unknown] pravastatin 40 mg tablet 40 mg PO DAILY 07/15/23 [History Last Taken Unknown] Allergy/AdvReac Type Severity Reaction Status Date / Time adhesive Allergy Intermediate rash Verified 08/11/22 16:13 aspirin Allergy Hives Verified 08/11/22 16:13 tetanus immune globulin Allergy Hives Verified 08/11/22 16:13 lidocaine AdvReac Rash Verified 08/11/22 16:13 sulfamethoxazole AdvReac Rash Verified 08/11/22 16:13 [From Bactrim] trimethoprim [From Bactrim] AdvReac Rash Verified 08/11/22 16:13 Family History Mother Heart disease CVA (cerebral vascular accident) Father Kidney disease Surgical History History of cholecystectomy S/P breast biopsy Social History housing: assisted living facility Smoking Status: Never smoker alcohol intake: never substance use type: does not use caffeine: No ROS ROS ED Constitutional Constitutional ED: Denies chills or fever(s) ENT ENT ED: Denies rhinorrhea or sore throat Cardiovascular Cardiovascular: Denies chest pain Respiratory/Chest Respiratory/Chest: Denies cough or dyspnea Gastrointestinal Gastrointestinal: Reports nausea; Denies vomiting Musculoskeletal Musculoskeletal: Reports back pain Integumentary Denies abscess or rash Neurologic Neurologic: Reports headache(s) Allergic/Immunologic Allergic/Immunologic ED: Denies urticaria EXAM Physical Exam Const Vital Signs: 07/15/23 20:30 07/15/23 20:36 Temperature 97.2 F L Temperature Source Temporal Pulse Rate 116 H Respiratory Rate 22 H Respiratory Effort Normal Non-Labored Respiratory Pattern Normal Blood Pressure 159/114 H Blood Pressure Mean 129 Pulse Ox 95 Oxygen Delivery Method Room Air Positive well nourished and well developed General Appearance ED: well developed and NAD HEENT Reports moist mucous membranes Neck supple and no JVD Resp normal respiratory effort and clear to auscultation bilaterally Cardio regular rhythm Rate: tachycardic GI non-tender and non-distended Palpation: soft Neuro CN's II-XII intact bilaterally and no sensory deficits noted Sensorium / Orientation: alert Motor Exam: general weakness MDM MDM MDM Narrative Medical decision making narrative: Differential diagnosis includes intracranial bleeding, stroke, gastroenteritis, urinary tract infection, dehydration, and electrolyte abnormality. CT scan of the brain will be obtained to assess for intracranial bleeding and stroke. CBC will be obtained to assess for leukocytosis and anemia. Basic metabolic profile will be obtained to assess for electrolyte abnormality and renal function. Urinalysis will be obtained to assess for urinary tract infection. Lab Data Attestation: I reviewed the patient's lab results. Lab results narrative: CBC was reviewed. There is a mild leukocytosis of 14.2. The remainder is within normal limits. Basic metabolic profile was reviewed and was essentially within normal limits. Urinalysis was reviewed. Leukocyte esterase was 500 with positive nitrites. There are 25-50 white blood cells and 3+ bacteria. Occult blood was 150 with 5-10 red blood cells. Labs: Laboratory Results - last 24 hr 07/15/23 07/15/23 21:04 Unknown WBC 14.2 H RBC 5.07 Hgb 14.7 Hct 45.0 MCV 88.8 MCH 29.0 MCHC 32.7 RDW Std Deviation 45.9 H RDW Coeff of Krissy 14.4 Plt Count 209 MPV 11.7 Immature Gran % (Auto) 0.600 Neut % (Auto) 79.4 H Lymph % (Auto) 8.9 L [place] % (Auto) 9.3 Eos % (Auto) 1.3 Baso % (Auto) 0.5 Absolute Neuts (auto) 11.3 H Absolute Lymphs (auto) 1.27 Nucleated RBC % 0 Sodium 139 Potassium 3.7 Chloride 108 H Carbon Dioxide 23.0 Anion Gap 8 BUN 14 Creatinine 0.75 Estim Creat Clear Calc 43.74 Est GFR (MDRD) Af Amer 94 Est GFR (MDRD) Non-Af 78 BUN/Creatinine Ratio 18.7 Glucose 129 H Calcium 8.7 Urine Color Yellow Urine Clarity Cloudy Urine pH 5.0 Ur Specific [place] 1.025 Urine Protein 100 H Urine Glucose (UA) Normal Urine Ketones 50 H Urine Occult Blood 150 H Urine Nitrite Positive H Urine Bilirubin 1 H Urine Urobilinogen 4 H Ur Leukocyte Esterase 500 H Urine RBC 5-10 SEEN Urine WBC 25-50 SEEN Ur Squamous Epith Cells 0 SEEN Urine Bacteria 3+ Urine Mucus 0 SEEN Radiography Diagnostic Testing: Clinical Impression(s) from Imaging Studies Brain CT 07/15/23 20:54 IMPRESSION: No acute intracranial hemorrhage or mass effect. Electronically Signed: Eleno Mitchell MD (Brooks) at 21:49 EST Reading Location ID and State: [facility] / [place] , Service support , CT scan of the brain was obtained. There is no acute intracranial abnormality. This was interpreted by the radiologist and was also independently reviewed by myself. Additional Tests and Interventions Additional Tests or Interventions: Urine culture was ordered. Treatment and Re-Evaluation :: Patient and family were advised of the findings. Patient was given a dose of Rocephin here. Prior cultures were reviewed which showed the patient has grown out E. coli and Klebsiella on prior urine cultures. These were both sensitive to Rocephin and cephalexin. Patient was given a prescription for Keflex. Patient will be discharged back to the extended care facility and continue with hospice. Family understands and is agreeable with the plan. All questions were answered. Discharge Plan Triage Chief Complaint: Other, Pain/Inj ED Provider: Leonidas Lennon Dx/Rx/DC Orders Clinical Impression: Urinary tract infection, Essential (primary) hypertension Instructions: ED Cystitis Female Adult Prescriptions: New cephalexin [cephalexin] 500 mg capsule 500 mg PO Q6 Qty: 28 0RF No Action gabapentin 100 mg capsule 100 mg PO BID metoprolol tartrate 50 MG tablet 12.5 mg PO BID Patient Comments: Blood Pressure and Heart Rate omeprazole magnesium 20 MG tablet,delayed release (DR/EC) 40 mg PO DAILY triamcinolone acetonide 1 APPLIC cream 1 applic TOPICAL BID PRN (Reason: Itching) albuterol sulfate 2.5 MG/3 ML solution for nebulization 2.5 mg INHALATION Q2H PRN PRN (Reason: SOB/Wheezing) 0RF furosemide 40 MG tablet 40 mg PO DAILY levothyroxine 50 MCG tablet 50 mcg PO DAILY potassium chloride 20 mEq tablet extended release 20 meq PO BID sertraline 100 mg Tablet 100 mg PO QHS meclizine 12.5 mg tablet 12.5 mg PO BID PRN (Reason: dizziness and giddiness) bisacodyl 5 mg Tablet,Delayed Release (Dr/Ec) 10 mg PO DAILY PRN (Reason: Constipation) acetaminophen 500 mg Tablet 1,000 mg PO Q6H PRN (Reason: Pain) olanzapine 2.5 mg tablet 2.5 mg PO TID oxybutynin chloride 15 mg tablet extended release 24hr 15 mg PO DAILY oxycodone 5 mg tablet 5 mg PO Q6H pravastatin 40 mg tablet 40 mg PO DAILY Primary Care Provider: Candis Hui Referrals: Candis Hui MD [Primary Care Provider] - 3-5 Days Disposition Disposition: Home, Self Care
--- NOTE | 2023-07-15 20:54 | CT_ITS ---
STUDY: CT BRAIN WITHOUT CONTRAST REASON FOR EXAM: Female, 87 years old. Head injury RADIATION DOSAGE (If Supplied By Facility): CTDIvol = ( 44.99 ) mGy, DLP = ( 829.85 ) mGycm TECHNIQUE: Transaxial CT imaging of the brain was performed without administration of intravenous contrast material. Individualized dose optimization techniques were used for this CT. COMPARISON: 08/11/2022 FINDINGS: Normal soft tissue structures. Normal calvarium. There is mild cerebral atrophy with widening of the extra-axial spaces and ventricular dilatation. There are areas of decreased attenuation within the white matter tracts of the supratentorial brain, consistent with microvascular disease changes. Normal basal ganglia and thalami. Normal brainstem. Normal cerebellum. There is no intracranial hemorrhage. There are no findings of an acute ischemic infarction. Normal visualized paranasal sinuses. CT/Brain/Head without Contrast IMPRESSION: No acute intracranial hemorrhage or mass effect. Electronically Signed: Eleno Mitchell MD (Brooks) at 21:49 EST Reading Location ID and State: [facility] / [place] , Service support ,
--- OUTSIDE RECORDS SUMMARY | 2023-07-15 21:04 | XMS RPT_ITS | CCD ---
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 Car Escort Name Role Phone Aguila Beebe Primary Care Provider Candis Hui Primary Care Provider RAMAN RASHID Attending Unavailable Allergies Allergy Classification Reported Allergen(s) Allergy Type Date of Onset Reaction(s) Facility Aluminum aspirin (1 source) Aluminum aspirin Drug Allergy 1 Hives [facility] Haemophilus influenzae type b, capsular polysaccharide inactivated tetanus toxoid conjugate vaccine (1 source) Haemophilus influenzae type b, capsular polysaccharide inactivated tetanus toxoid conjugate vaccine Drug Allergy 5 Swelling [facility] Salicylic Acid (1 source) Salicylic Acid Drug Allergy 5 [facility] Sulfonamides (antibiotic) (1 source) Sulfamethoxazole Drug Allergy 3 Rash [facility] Tetanus immune globulin (1 source) Tetanus immune globulin Drug Allergy 8 Rash [facility] (3 sources) Aspirin Drug Allergy 8 [facility] (4 sources) Salicylic Acid Drug Allergy 5 [facility] Work Phone: (4 sources) Sulfamethoxazole Drug Allergy 3 Rash [facility] (3 sources) Tetanus immune globulin Drug Allergy 8 Rash [facility] (3 sources) Tetanus Vaccines And Toxoid Propensity to adverse reactions 5 [facility] Work Phone: (1 source) Aluminum aspirin Drug Allergy 1 Hives [facility] (1 source) Haemophilus influenzae type b, capsular polysaccharide inactivated tetanus toxoid conjugate vaccine Drug Allergy 5 Swelling [facility] Work Phone: (1 source) Lidocaine Drug Allergy 2 Rash [facility] Work Phone: (1 source) Sulfamethoxazole / Trimethoprim Drug Allergy 2 Rash [facility] Work Phone: (1 source) Tetanus immune globulin Drug Allergy 8 Rash [facility] Work Phone: (1 source) Trimethoprim Drug Allergy 1 Rash, Hives [facility] Work Phone: Medications Current Medications Medication Drug Class(es) Dates Sig (Normalized) Sig (Original) apixaban 2.5 mg oral tablet (2 sources) Factor Xa Inhibitor Start: 10-22-2020 take 1 tablet by mouth once daily ELIQUIS 2.5 MG TABS tablet Take 1 tablet by mouth daily 0 10/22/2020 Active atorvastatin 40 mg oral tablet (5 sources) HMG-CoA Reductase Inhibitor Start: 11-29-2019 take 1 tablet by mouth once daily atorvastatin (LIPITOR) 40 MG tablet Take 40 mg by mouth nightly 0 11/29/2019 Active Completed/Discontinued Medications Medication Drug Class(es) Dates Sig (Normalized) Sig (Original) acetaminophen 500 mg oral tablet (5 sources) Start: 12-14-2017 take 2 tablets by mouth every eight hours as needed acetaminophen (TYLENOL EXTRA STRENGTH) 500 mg tablet Take 2 tablets by mouth every 8 hours as needed for Pain. 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; Translations: [Cerebral embolism with cerebral infarction] Onset: 12-21-2017 12-21-2017 Chronic Anxiety disorders (3 sources) Anxiety; Translations: [Other specified anxiety disorders] Onset: 05-14-2018 05-14-2018 Chronic Delirium, dementia, and amnestic and other cognitive disorders (8 sources) Vascular dementia without behavioral disturbance; Translations: [Vascular dementia without behavioral disturbance] Onset: 11-11-2020 11-11-2020 Chronic Disorders of lipid metabolism (9 sources) Hyperlipidemia; Translations: [Hyperlipidemia, unspecified] Onset: 10-10-2016 09-25-2015 Chronic Diverticulosis and diverticulitis (3 sources) Diverticulosis of colon; Translations: [Diverticulosis of large intestine without perforation or abscess without bleeding] 06-28-2005 Chronic Esophageal disorders (6 sources) Gastroesophageal reflux disease; Translations: [Gastro-esophageal reflux disease without esophagitis] Onset: 04-19-2007 04-19-2007 Chronic Essential hypertension (6 sources) Benign essential hypertension; Translations: [Essential (primary) hypertension] Onset: 05-14-2018 04-21-2005 Chronic Hemorrhoids (3 sources) Internal hemorrhoids; Translations: [Other hemorrhoids] 06-28-2005 Episodic Miscellaneous mental health disorders (3 sources) Insomnia; Translations: [Other insomnia not due to a substance or known physiological condition] Onset: 08-21-2018 08-21-2018 Chronic Mood disorders (2 sources) Major depressive disorder, single episode, unspecified; Translations: [Major depressive disorder, single episode, unspecified] Onset: 05-04-2022 Chronic Nutritional deficiencies (3 sources) Vitamin D deficiency; Translations: [Vitamin D deficiency, unspecified] Onset: 05-14-2018 05-14-2018 Chronic Osteoarthritis (3 sources) Osteoarthritis; Translations: [Unspecified osteoarthritis, unspecified site] Onset: 04-21-2005 04-21-2005 Chronic Other and ill-defined cerebrovascular disease (2 sources) Cerebrovascular disease; Translations: [Cerebrovascular disease, unspecified] Onset: 11-11-2020 11-11-2020 Chronic Other bone disease and musculoskeletal deformities (3 sources) Idiopathic kyphoscoliosis; Translations: [Other idiopathic scoliosis, site unspecified] 04-12-2016 Chronic Other nervous system disorders (2 sources) Other abnormalities of gait and mobility; Translations: [Other abnormalities of gait and mobility] Onset: 03-05-2022 Episodic Other non-traumatic joint disorders (3 sources) Arthropathy of multiple joints; Translations: [Arthropathy, unspecified] Onset: 10-10-2016 10-10-2016 Chronic Other screening for suspected conditions (not mental disorders or infectious disease) (1 source) Patient encounter status; Translations: [Encounter for screening mammogram for malignant neoplasm of breast] Episodic Other upper respiratory disease (3 sources) Chronic rhinitis; Translations: [Chronic rhinitis] Onset: 11-12-2010 11-12-2010 Chronic Thyroid disorders (3 sources) Subclinical hypothyroidism; Translations: [Other specified hypothyroidism] Onset: 05-14-2018 05-14-2018 Chronic Transient cerebral ischemia (3 sources) Transient cerebral ischemia; Translations: [Transient cerebral ischemic attack, unspecified] Onset: 02-20-2019 02-20-2019 Chronic Past or Other Problems Problem Classification Problem Date Documented Da te Episodic/Chronic Allergic reactions (3 sources) Inflammatory dermatosis; Translations: [Dermatitis, unspecified] Onset: 03-23-2018 03-23-2018 Episodic Diabetes mellitus without complication (3 sources) Hyperglycemia; Translations: [Impaired fasting glucose] Onset: 08-21-2018 08-21-2018 Episodic Fluid and electrolyte disorders (3 sources) Hypokalemia; Translations: [Hypokalemia] Onset: 10-18-2017 10-18-2017 Episodic Malaise and fatigue (4 sources) Fatigue; Translations: [Other fatigue] Onset: 05-14-2018 05-14-2018 Episodic Other bone disease and musculoskeletal deformities (3 sources) Disorder of skeletal system; Translations: [Disorder of bone, unspecified] Onset: 04-21-2005 04-12-2016 Episodic Other bone disease and musculoskeletal deformities (3 sources) Osteopenia; Translations: [Other specified disorders of bone density and structure, multiple sites] Onset: 10-18-2017 10-18-2017 Episodic Other lower respiratory disease (3 sources) Cough; Translations: [Cough] Onset: 03-23-2018 03-23-2018 Episodic Other nervous system disorders (3 sources) Impairment of balance; Translations: [Other abnormalities of gait and mobility] Onset: 03-23-2018 03-23-2018 Episodic Other nervous system disorders (1 source) Abnormal gait; Translations: [Other abnormalities of gait and mobility] Onset: 07-14-2021 07-14-2021 Episodic Other non-traumatic joint disorders (3 sources) Multiple joint pain; Translations: [Pain in unspecified joint] Onset: 10-10-2016 10-10-2016 Episodic Other skin disorders (3 sources) Eruption; Translations: [Rash and other nonspecific skin eruption] Onset: 04-19-2007 04-19-2007 Episodic Other skin disorders (3 sources) Loss of hair; Translations: [Nonscarring hair loss, unspecified] Onset: 05-14-2018 05-14-2018 Episodic Other skin disorders (3 sources) Multiple actinic keratoses; Translations: [Actinic keratosis] Onset: 06-15-2018 06-15-2018 Episodic Results Test Name Value Interpretation Reference Range Facil ity Encounters Encounter Date Encounter Type Care Provider Facility Start: 05-04-2022 End: 05-04-2022 ambulatory RAMAN RASHID [facility] Start: 12-15-2021 End: 12-15-2021 Subsequent hospital visit by physician Raman Rashid MD Work Phone: [facility] Start: 10-13-2021 Documentation procedure Mammog jan Coordinator [facility] Start: 10-13-2021 Letter encounter Mammography Coordinator [facility] Department Start: 10-13-2021 End: 10-13-2021 Subsequent hospital visit by physician Screen Mammo [facility] Mammogram Procedures Date Procedure Procedure Detail Performing Clinician Start: 10-13-2021 Screening mammograph y bi 2-view breast inc cad Aguila Beebe DO Work Phone: Plan of Treatment Date Care Activity Detail Author Start: 07-25-2023 DIABETES SCREEN DIABETES SCREEN [facility] Start: 07-14-2022 Depression Screen Depression Screen [facility] Start: 04-13-2022 End: 04-13-2022 Patient encounter procedure 04/13/2022 Office Visit Geriatric Medicine Raman Rashid MD [facility] [address] [address] [facility] Start: 01-20-2022 Influenza vaccination C [facility] Start: 12-02-2021 Shingles vaccine (2 of 2) Shingles vaccine (2 of 2) [facility] Start: 11-14-2021 COVID-19 Vaccine (4 - Booster for Pfizer series) COVID-19 Vaccine (4 - Booster for Pfizer series) [facility] Start: 05-22-2021 ADVANCE DIRECTIVE DISCUSSION ADVANCE DIRECTIVE DISCUSSION [facility] Start: 01-20-2021 Influenza vaccination Flu vacc ine (Season Ended) [facility] Work Phone: Start: 10-28-2020 Annual Wellness Visi t (AWV) Annual Wellness Visit (AWV) [facility] Work Phone: Start: 1989 Screening for osteoporosis DEXA (modify frequency per FRAX score) [facility] Work Phone: Start: 1984 Shingles Vaccine (1 of 2) Shingles Vaccine (1 of 2) [facility] Work Phone: Start: 1984 SHINGRIX VACCINE (1 of 2) SHINGRIX VACCINE (1 of 2) [facility] Start: 1953 DTaP/Tdap/Td vaccine (1 - Tdap) DTaP/Tdap/Td vaccine (1 - Tdap) [facility] Start: 1953 Urine microalbumin profile DTAP,TDAP,TD (1 - Tdap) [facility] Start: 1946 COVID-19 Vaccine (1) COVID-19 Vaccin e (1) [facility] Work Phone: Start: 1944 Lipid panel [facility] Start: 12-02-1939 COVID-19 VACCINE (#1) COVID-19 VACCI NE (#1) [facility] Start: 1934 Annual Wellness Visi t (AWV) Annual Wellness Visit (AWV) [facility] Start: 1934 Creatinine measurement Creatinine mo nitoring [facility] Work Phone: Start: 1934 Potassium monitoring Potassium monit oring [facility] Work Phone: Screening mammograph y bi 2-view breast inc cad DONATO SCREENING Radiology Routine Visit for screening mammogram Ordered: 10/06/2021 [facility] Work Phone: Immunizations Immunization Date Immunization Notes Care Provider Mark jacobo 02-28-2020 pneumococcal conjuga te vaccine, 13 valent Aguila Beebe DO Work Phone: [facility] 02-20-2019 influenza, high dose seasonal, preservative-free Aguila Beebe DO Work Phone: [facility] Work Phone: 01-24-2018 influenza, high dose seasonal, preservative-free Aguila Beebe DO Work Phone: [facility] 11-29-2017 pneumococcal polysaccharide vaccine, 23 valent Aguila Beebe DO Work Phone: [facility] 02-17-2017 influenza, high dose seasonal, preservative-free Aguila Beebe DO Work Phone: [facility] Work Phone: 02-17-2016 influenza, high dose seasonal, preservative-free Aguila Beebe DO Work Phone: [facility] Work Phone: 03-27-2015 pneumococcal conjuga te vaccine, 13 valent Aguila Beebe DO Work Phone: [facility] Work Phone: 02-16-2015 influenza, high dose seasonal, preservative-free Aguila Beebe DO Work Phone: [facility] Work Phone: 02-19-2014 influenza, seasonal, injectable, preservative free Aguila Beebe DO Work Phone: [facility] 03-14-2012 influenza virus vacc ine, unspecified formulation Aguila Beebe DO Work Phone: [facility] 02-15-2010 influenza virus vacc ine, unspecified formulation Aguila Beebe DO Work Phone: [facility] Work Phone: 02-13-2009 influenza virus vacc ine, unspecified formulation Aguila Beebe DO Work Phone: [facility] Work Phone: 03-21-2008 influenza virus vacc ine, unspecified formulation Aguila Beebe DO Work Phone: [facility] 04-05-2006 influenza virus vacc ine, unspecified formulation Aguila Beebe DO Work Phone: [facility] Work Phone: 04-05-2006 pneumococcal polysaccharide vaccine, 23 valent Aguila Beebe DO Work Phone: [facility] Work Phone: 04-21-2005 pneumococcal polysaccharide vaccine, 23 valent Aguila Beebe DO Work Phone: [facility] Work Phone: Payers Date Payer Category Payer Medicare [id number] 2017 Medicare MMO MEDICARE MMO MEDADVANTAGE O [id number] 2017-Present [phone] [address] [place] [address] [facility] [id number] Social History Date Type Detail Facility Start: 10-28-2020 Tobacco smoking stat [facility] Never smoker [facility] Start: 10-28-2020 Tobacco use and exposure Never used [facility] Start: 10-28-2020 End: 12-15-2021 Alcohol intake Lifetime non-drinker (finding) [facility] Work Phone: Start: 08-13-2020 End: 10-28-2020 History SDOH Alcohol Frequency 1 [facility] Work Phone: Start: 1935 Sex Assigned At Not on file S [facility] Work Phone: Start: 09-04-2020 Alcohol intake 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 (finding) [facility] Start: 11-29-2019 History SDOH Alcohol Std Drinks 98 [facility] Start: 11-29-2019 History SDOH Social Connections Phone 5 [facility] Start: 11-29-2019 End: 08-13-2020 History SDOH Social Connections Get Together 2 [facility] Start: 11-29-2019 History SDOH Social Connections Living 4 [facility] Start: 11-29-2019 History SDOH Physica l Activity DPW 0 [facility] Start: 11-29-2019 History SDOH Physica l Activity MPS 3 [facility] Start: 11-29-2019 Education 12 [facility] Start: 1935 Sex Assigned At Female C [facility] Start: 10-03-2021 End: 12-15-2021 Exposure to SARS-CoV-2 (event) Not sure [facility] Goals Date Patient Goal Desired Activity /State Clinical Notes 07-02-2014 to 12-14-2022 Letter - Mammography Coordinator - 10/13/2021 3:33 PM RT Job(Delvin) - 10/13/2021 1:30 PM Macey Yates APRN.CNP - 10/06/2021 1:20 PM EDT Note Date & Type Note Facility 05-04-2022 Note - patient reports mo od down because of the holidays- not around family - on meds - don't think she would benefit from counseling because of her short term memory loss [facility] 10-13-2021 Miscellaneous Notes October 13, 2021 PID: [id number] Rosi Espinoza [address] [facility] [address] [place] [address] Dear Ms. Espinoza, We are pleased to inform you that the results of your recent breast imaging exam on 10/13/2021 are normal. Your mammogram demonstrates that you have dense breast tissue, which could hide abnormalities. Dense breast tissue, in and of itself, is a relatively common condition. Therefore, this information is not provided to cause undue concern; rather, it is to raise your awareness and promote discussion with your health care provider regarding the presence of dense breast tissue in addition to other risk factors. Early detection of cancer is very important. We also understand recommendations regarding breast cancer screening are controversial. Please discuss with your primary care provider which strategy is best for you and whether a mammogram is right for you. Your imaging studies and report will be kept on file at [facility] as part of your permanent medical record and are available for your continuing care. Thank you for allowing us to help in meeting your health care needs. Sincerely, Dr. Shankar Interpreting Radiologist [facility] (Normal over 40) documented in this encounter [facility] 10-13-2021 Note HNO ID: [id number] Author: RT Dav(Delvin) Service: ? Author Type: Technologist Type: Progress Notes Filed: 10/13/2021 1:34 PM Note Text: Radiology Service Progress Note PATIENT NAME: Rosi Espinoza DATE OF SERVICE: October 13, 2021 TIME: 1:34 PM PATIENT IDENTITY VERIFICATION COMPLETED USING TWO (2) IDENTIFIERS: Name and Date of confirmed by patient verbally. FALL SCREENING: Has the patient had 2 falls in the last year or 1 fall with injury or currently using an Ambulatory Assistive Device (Walker, Cane, Wheelchair, Crutches, etc.)? No PATIENT GENDER DATA: Female. status: : No status: NO. PATIENT RELEVANT IMPLANT DATA REVIEWED: Not Applicable RADIOLOGY DEPARTMENT: Mammography PERIPHERAL IV DATA: Not applicable SIGNED BY: RT Dav(R) October 13, 2021 1:34 PM [facility] 10-13-2021 History of Presen t illness Narrative Radiology Service Progress Note PATIENT NAME: Rosi Espinoza DATE OF SERVICE: October 13, 2021 TIME: 1:34 PM PATIENT IDENTITY VERIFICATION COMPLETED USING TWO (2) IDENTIFIERS: Name and Date of confirmed by patient verbally. FALL SCREENING: Has the patient had 2 falls in the last year or 1 fall with injury or currently using an Ambulatory Assistive Device (Walker, Cane, Wheelchair, Crutches, etc.)? No PATIENT GENDER DATA: Female. status: : No status: NO. PATIENT RELEVANT IMPLANT DATA REVIEWED: Not Applicable RADIOLOGY DEPARTMENT: Mammography PERIPHERAL IV DATA: Not applicable SIGNED BY: RT Dav(R) October 13, 2021 1:34 PM documented in this encounter [facility] 10-06-2021 Note HNO ID: [id number] Author: Tabby Yates APRN.CNP Service: ? Author Type: Nurse Practitioner Type: Progress Notes Filed: 10/06/2021 1:20 PM Note Text: Mammogram order placed. Tabby Yates APRN.CNP [facility] 10-06-2021 History of Presen t illness Narrative Mammogram order placed. Tabby Yates APRN.CNP documented in this encounter [facility] documented as of this encounter (statuses as of 10/06/2021) [facility] History of Past illness Narrative* Problem Noted Date Resolved Date Counseling and coordination of care 07/02/2014 12/24/2014 documented as of this encounter (statuses as of 10/14/2021) [facility] History of Past illness Narrative* Problem Noted Date Resolved Date Counseling and coordination of care 07/02/2014 12/24/2014 documented as of this encounter (statuses as of 10/15/2021) [facility] Visit for screening mammogram- Primary Other screening mammogram documented in this encounter [facility] for referral (narrative)* Diagnostic Procedure Only (Routine) - Authorized Specialty Diagnoses / Procedures Referred By Jaqueline t Referred To Contact [facility] Diagnoses Visit for screening mammogram Procedures DONATO SCREENING SCREENING MAMMOGRAPHY BI 2-VIEW BREAST INC CAD Aguila Beebe DO [address] [place] [address] [facility] [address] [address] Referral ID Status Reason Start Date Expiration Date Visits Requested Visits Authorized [id number] Authorized Auto-Generat ed Referral 10/06/2021 11/04/2022 1 1 [facility] for visit Narrative* Diagnostic Procedure Only (Routine) - Closed Specialty Diagnoses / Procedures Referred By Jaqueline garham Referred To Contact [facility] Diagnoses Visit for screening mammogram Procedures DONATO SCREENING SCREENING MAMMOGRAPHY BI 2-VIEW BREAST INC CAD Aguila Beebe, DO [address] [place] [address] [facility] [address] [place] [address] Referral ID Status Reason Start Date Expiration Date V isits Requested Visits Authorized [id number] Closed Auto-Generate d Referral 10/06/2021 11/04/2022 1 1 [facility] Summary Purpose Family History No Family History Records FoundNo Family History Records FoundNo Family History Records Found Advance Directives No Advanced Directives Records FoundDocuments on File Type Date Recorded Patient Workforce Development Assistant Expl anation ACP-Advance Directive 10/28/2020 2:20 PM lucas gil will [id number] ACP-Power of Customer Facilities Supervisor 10/28/2020 2:19 PM HC POA [phone] ACP-Power of Customer Facilities Supervisor 10/28/2020 2:21 PM PO A financial [phone] Latest Code Status on File Code Status Date Activated Date Inactivated Comments DNR-CCA 11/11/2020 4:30 PM Documents on File Type Date Recorded Patient Workforce Development Assistant Expl anation ACP-Do Not Resuscitate 11/12/2020 8:32 AM DNR CC [id number] ACP-Advance Directive 10/28/2020 2:20 PM li louise will [phone] ACP-Power of Customer Facilities Supervisor 10/28/2020 2:19 PM HC POA [phone] ACP-Power of Customer Facilities Supervisor 10/28/2020 2:21 PM PO A financial [phone] Additional Source Comments INFORMATION SOURCE (unrecogn ized section and content) DATE CREATED AUTHOR AUTHOR'S ORGANIZ ATION 10/15/2021 [facility] DATE CREATED AUTHOR AUTHOR'S ORGANIZ ATION 05/11/2022 [facility] Source Comments (unrecognize d section and content) In the event this informatio n is protected by the Federal Confidentiality of Alcohol and Drug Abuse Patient Records regulations: The Federal rules restrict any use of the information to criminally investigate or prosecute any alcohol or drug abuse patient.[facility] the event this information is protected by the Federal Confidentiality of Alcohol and Drug Abuse Patient Records regulations: The Federal rules restrict any use of the information to criminally investigate or prosecute any alcohol or drug abuse patient.[facility] the event this information is protected by the Federal Confidentiality of Alcohol and Drug Abuse Patient Records regulations: The Federal rules restrict any use of the information to criminally investigate or prosecute any alcohol or drug abuse patient.[facility] Care Teams (unrecognized sec tion and content) Armoured Car Esc[employer] Relationship Specialty Start Date End Date Aguila Beebe, DO [address] [place] [address] PCP - General Family Practice 04/02/14 [employer]oured Car Escort Relationship Specialty Start Date End Date Aguila Beebe DO [address] [place] [address] PCP - General Family Practice 04/02/14 Armoured Car Escort Relationship Specialty Start Date End Date [facility] [address] [place], [place] [address] PCP - General Family Medicine 07/14/21 FOR RECORDS PERTAINING TO PATIENTS WHO ARE OR HAVE BEEN ENROLLED IN A CHEMICAL DEPENDENCY/SUBSTANCEABUSE PROGRAM, SOME INFORMATION MAY BE OMITTED. This clinical summary was aggregated from multiple sources. Caution should be exercised in using it in the provision of clinical care. This summary normalizes information from multiple sources, and as a consequence, information in this document may materially change the coding, format and clinical context of patient data. In addition, data may be omitted in some cases. CLINICAL DECISIONS SHOULD BE BASED ON THE PRIMARY CLINICAL RECORDS. [facility]. provides no warranty or guarantee of the accuracy or completeness of information in this document.
[2023-07-15] MEDS: 0.9% Normal Saline (1000mL) 1,000 ML 1000 ML IV (21:08)
[2023-07-15 21:11] LABS: Mucous, Urine 0 SEEN /hpf (<or=2+); Squamous Epithelial Cells - UA 0 SEEN /hpf (5-10)
[2023-07-15 21:12] LABS: Absolute Lymphocyte Count 1.27 X10^3/uL (0.83-4.51); Absolute Neutrophil Count 11.3 X10^3/uL (2.0-7.7); Basophil# 0.07 X10^3/uL; Basophil% 0.5 % (0-1); Eosinophil# 0.18 X10^3/uL; Eosinophils% 1.3 % (0-5); Hemoglobin 14.7 g/dL (12.0-15.0); Lymphocyte # 1.27 X10^3/ul (0.83-4.51); Lymphocyte % 8.9 % (19-41); Mean Corp Hgb Conc 32.7 g/dL (32-36); Mean Corpuscular Volume 88.8 fL (81-99); Mean Platelet Vol. 11.7 fl (6.2-12.0); Monocyte# 1.32 X10^3/uL; Monocyte% 9.3 % (0-10); NRBC Flagged by Analyzer 0 % (0-5); Neutrophil # 11.32 X10^3/uL (2.7-7.7); Neutrophil % 79.4 % (47-70); Platelet Count 209 K/mm3 (150-450); RBC Distribution Width CV 14.4 % (11.6-14.6); RBC Distribution Width SD 45.9 fl (35.1-43.9); Red Blood Count 5.07 M/mm3 (4.2-5.4); White Blood Count 14.2 K/mm3 (4.4-11.0)
[2023-07-15 21:13] LABS: Color, Urine Yellow (Yellow); Glucose, Dipstick Normal (Normal); Ketone-Dipstick 50 mg/dl (Negative); Leukocyte Esterase-Dipstick 500 /ul (Negative); Nitrite-Dipstick Positive (Negative); Occult Blood-Urine 150 /ul (Negative); Protein-Dipstick 100 mg/dl (Negative); Specific Gravity, Urine 1.025 (1.002-1.030); Urine Clarity Cloudy (Clear); Urine Urobilinogen 4 mg/dl (Normal)
[2023-07-15 21:17] LABS: Urine Bilirubin Dipstick 1 mg/dL (Negative)
[2023-07-15 21:19] LABS: Bacteria 3+ /hpf (None Seen); Red Blood Cells-Urine 5-10 SEEN /hpf (0-5); White Blood Cells 25-50 SEEN /hpf (0-5)
[2023-07-15 21:25] LABS: Anion Gap 8 (5-15); BUN 14 mg/dL (7-18); BUN/Creat Ratio 18.7 RATIO (10-20); Calcium,Total 8.7 mg/dL (8.5-10.1); Chloride 108 mmol/L (98-107); Creatinine, Serum 0.75 mg/dL (0.55-1.02); EST Glomerular Filtration Rate 78 mL/min (>60); Est Glom Filt Rate - Afr Amer 94 mL/min (>60); Estimated Creatinine Clearance 43.74 ml/min; Glucose 129 mg/dL (74-106); Potassium 3.7 mmol/L (3.5-5.1); Sodium Level 139 mmol/L (136-145)
[2023-07-15] MEDS: Acetaminophen 500 MG Tablet 1000 MG PO (22:11)
[2023-07-15] MEDS: Ceftriaxone 1 GM/50 ML BAG IV (22:11)
[2023-07-15 22:45] VITALS: BP 149/126; PULSE 92; RESP 12; O2SAT 95
[2023-07-15 22:46] VITALS: BP 152/105; PULSE 98; RESP 14; TEMP 36.6; O2SAT 95
--- NOTE | 2023-07-15 23:22 | ED.RN ---
2250: Spoke with All Donis LPN about pt. return to facility.
--- NOTE | 2023-07-15 23:23 | ED.RN ---
2323: spoke with Vernell from [facility] about patient condition and place for D/C
== END 2023-07-16 01:44 | disposition intermediate care facility (04) ==
PROVIDERS: Emergency Provider Emergency Medicine; PCP Family Medicine; Visit Provider Emergency Medicine
DX: N39.0 Urinary tract infection, site not specified (principal); I10 Essential (primary) hypertension; Z79.51 Long term (current) use of inhaled steroids; Z79.899 Other long term (current) drug therapy; Z86.73 Personal history of transient ischemic attack (TIA), and cerebral infarction without residual deficits
CPT/HCPCS: 70450; 80048; 81001; 85025; 87077; 87086; 87088; 87186; 96365; 99284; J7030; A4216

== ENCOUNTER → 2023-12-04 | Outpatient (REF) | payer MEDICARE, SELFPAY ==
[2023-12-04 08:18] LABS: Hematocrit 43.7 % (37-47); Hemoglobin 13.8 g/dL (12.0-15.0); Mean Corp Hgb Conc 31.6 g/dL (32-36); Mean Corpuscular Hgb 27.6 pg (27.0-32.0); Mean Corpuscular Volume 87.4 fL (81-99); Mean Platelet Vol. 12.8 fl (6.2-12.0); Platelet Count 231 K/mm3 (150-450); RBC Distribution Width CV 14.7 % (11.6-14.6); RBC Distribution Width SD 46.9 fl (35.1-43.9); White Blood Count 7.3 K/mm3 (4.4-11.0)
[2023-12-04 08:38] LABS: ALB/GLOB Ratio 0.8 RATIO (0.9-2.4); AST(SGOT) 22 U/L (15-37); Alanine Aminotransfer ALT/SGPT 15 U/L (13-56); Albumin, Serum 3.2 g/dL (3.2-5.0); Alkaline Phosphatase 111 U/L (45-117); Anion Gap 8 (5-15); BUN 10 mg/dL (7-18); BUN/Creat Ratio 13.5 RATIO (10-20); Calcium,Total 8.6 mg/dL (8.5-10.1); Chloride 108 mmol/L (98-107); Cholesterol 147 mg/dL (200); Creatinine, Serum 0.74 mg/dL (0.55-1.02); EST Glomerular Filtration Rate 79 mL/min (>60); Est Glom Filt Rate - Afr Amer 95 mL/min (>60); Globulin 3.8 g/dL (2.2-4.2); Glucose 96 mg/dL (74-106); High Density Lipoprotein 41 mg/dL; Potassium 3.8 mmol/L (3.5-5.1); Sodium Level 140 mmol/L (136-145); T4 Total, Thyroxin 7.2 ug/dL (4.8-13.9); Thyroid Stim Hormone (TSH) 2.21 uIU/mL (0.358-3.74); Triglycerides 123 mg/dL; Very Low Density Lipoprotein 25 mg/dL (5-40)
== END ==
PROVIDERS: PCP Family Medicine; Visit Provider Family Medicine
DX: I48.91 Unspecified atrial fibrillation (principal); I10 Essential (primary) hypertension; E78.5 Hyperlipidemia, unspecified
CPT/HCPCS: 36415; 80053; 80061; 84436; 84443; 85027

== ENCOUNTER 2024-07-17 20:30 | Emergency (ER) | payer MEDICARE, SELFPAY ==
[2024-07-17 20:31] VITALS: BP 161/129; PULSE 78; RESP 26; TEMP 36.1; O2SAT 92
[2024-07-17 21:19] VITALS: BMI 21.9
--- NOTE | 2024-07-17 21:27 | RAD_ITS ---
PROCEDURE: CHEST 1 VIEW (PORTABLE) REASON FOR EXAM: Cough. TECHNIQUE: Frontal view of the chest. COMPARISON: 08/11/2022. FINDINGS: The heart is enlarged. Bibasilar consolidative opacities suspicious for aspiration/pneumonia. Small left pleural effusion. RAD/Chest 1 View (Portable) IMPRESSION: Bibasilar opacities suspicious for aspiration/pneumonia. Small left pleural effusion. Reading Location: [place] [address]
[2024-07-17 22:30] VITALS: BP 145/110; PULSE 76; RESP 22; O2SAT 99
--- NOTE | 2024-07-17 23:05 | ED.VIS.DYS ---
HPI History of Present Illness Chief Complaint: Shortness of Breath Informant: patient and family Narrative Narrative: Patient brought here by EMS from [facility], jordon is present. Patient currently nonambulatory due to multiple falls mainly wheelchair-bound. She had lumbar fracture in 2019. She has been established hospice since July 2022. She has been having on and off illness over the fall however last 2 weeks increasing productive cough. She had worsening dyspnea this evening she was placed on oxygen by hospice. They discussed with family what to do, grandson wanted her brought to the emergency department due to chest x-ray that was not done on Monday. She has had no fevers no myalgias. Currently feeling better on oxygen. She denies asthma or COPD history however was exposed to tobacco with her significant other. She is currently on prednisone since Monday. [facility] Medical History Rib fracture Vascular dementia Intractable back pain Traumatic fracture of spine at T12-L1 level Recurrent falls Anxiety and depression PAF (paroxysmal atrial fibrillation) Hypothyroidism Essential (primary) hypertension Non-rheumatic aortic stenosis Secondary pulmonary arterial hypertension GERD (gastroesophageal reflux disease) Nonsustained ventricular tachycardia CVA (cerebral vascular accident) (11/16/17) Hyperlipidemia Home Medications ?Medication ?Instructions ?Recorded ?Last Taken ?Type metoprolol tartrate 50 mg tablet 12.5 mg PO BID BLOOD PRESSURE 05/13/14 08/31/20 08:00 History omeprazole magnesium 20 mg 40 mg PO DAILY acid reflux 11/16/17 08/31/20 08:00 History tablet,delayed release triamcinolone acetonide 0.5 % 1 applic topical BID PRN Itching 08/31/20 Unknown History topical cream albuterol sulfate 2.5 mg/3 mL 2.5 mg (3 mL) inhalation Q2H PRN 09/01/20 Unknown Rx (0.083 %) solution for nebulization PRN SOB/Wheezing furosemide 40 mg tablet 40 mg PO DAILY HTN 09/01/20 Unknown History levothyroxine 50 mcg tablet 50 mcg PO DAILY thyroid 09/01/20 Unknown History gabapentin 100 mg capsule 100 mg PO BID pain 05/13/21 Unknown History acetaminophen 500 mg tablet 1,000 mg PO Q6H PRN Pain 07/30/22 Unknown History bisacodyl 5 mg tablet,delayed 10 mg PO DAILY PRN Constipation 07/30/22 Unknown History release meclizine 12.5 mg tablet 12.5 mg PO BID PRN dizziness and 07/30/22 Unknown History giddiness potassium chloride 20 mEq 20 meq PO BID hypokalemia 07/30/22 Unknown History tablet,extended release sertraline 100 mg tablet 100 mg PO QHS depression 07/30/22 Unknown History cephalexin 500 mg capsule 500 mg PO Q6 #28 CAPSULES 07/15/23 Unknown Rx olanzapine 2.5 mg tablet 2.5 mg PO TID 07/15/23 Unknown History oxybutynin chloride 15 mg 15 mg PO DAILY 07/15/23 Unknown History tablet,extended release 24 hr oxycodone 5 mg tablet 5 mg PO Q6H 07/15/23 Unknown History pravastatin 40 mg tablet 40 mg PO DAILY 07/15/23 Unknown History doxycycline monohydrate 100 mg 100 mg PO BID #20 CAPSULES 07/17/24 Unknown Rx capsule Allergy/AdvReac Type Severity Reaction Status Date / Time adhesive Allergy Intermediate rash Verified 08/11/22 16:13 aspirin Allergy Hives Verified 08/11/22 16:13 tetanus immune globulin Allergy Hives Verified 08/11/22 16:13 lidocaine AdvReac Rash Verified 08/11/22 16:13 sulfamethoxazole (From AdvReac Rash Verified 08/11/22 16:13 Bactrim) trimethoprim (From Bactrim) AdvReac Rash Verified 08/11/22 16:13 Family History Mother Heart disease CVA (cerebral vascular accident) Father Kidney disease Surgical History S/P breast biopsy History of cholecystectomy Social History housing: assisted living facility Smoking Status: Never smoker alcohol intake: never substance use type: does not use caffeine: No ROS ROS ED Constitutional Constitutional ED: Denies chills, fever(s) or sweats ENT ENT ED: Denies sore throat Cardiovascular Cardiovascular: Denies chest pain, leg edema, palpitations or racing heartbeat Respiratory/Chest Respiratory/Chest: Reports cough and dyspnea; Denies dyspnea on exertion Gastrointestinal Gastrointestinal: Denies abdominal pain, diarrhea, nausea or vomiting Genitourinary Genitourinary ED: Denies dysuria, hematuria or urinary frequency Musculoskeletal Musculoskeletal: Denies back pain, extremity pain or neck pain Integumentary Denies rash or wounds Neurologic Neurologic: Denies headache(s), paresthesias or weakness EXAM Physical Exam Const Vital Signs: 07/17/24 20:31 07/17/24 22:30 07/17/24 23:36 Temperature 97 F L Temperature Source Temporal Pulse Rate 78 76 Respiratory Rate 26 H 22 H Respiratory Effort Respiratory Depth Respiratory Pattern Blood Pressure 161/129 H 145/110 H Blood Pressure Mean 139 121 Pulse Ox 92 99 Oxygen Delivery Method Nasal Cannula Nasal Cannula Nasal Cannula Oxygen Flow Rate (L/min) 2 2 2 07/17/24 23:36 07/18/24 00:09 07/18/24 00:10 Temperature 98.7 F Temperature Source Pulse Rate 74 Respiratory Rate 20 H 20 H Respiratory Effort Labored Respiratory Depth Normal Respiratory Pattern Tachypnea Blood Pressure 145/110 H Blood Pressure Mean 121 Pulse Ox 99 99 Oxygen Delivery Method Nasal Cannula Nasal Cannula Oxygen Flow Rate (L/min) 2 2 07/18/24 02:00 Temperature Temperature Source Pulse Rate Respiratory Rate 20 H Respiratory Effort Respiratory Depth Respiratory Pattern Blood Pressure Blood Pressure Mean Pulse Ox 98 Oxygen Delivery Method Nasal Cannula Oxygen Flow Rate (L/min) 2 Positive well nourished and well developed Constitutional Narrative: 2 L nasal cannula. General Appearance ED: well developed and NAD HEENT Reports moist mucous membranes normocephalic and atraumatic Eyes General Eye ED: Yes normal appearance of both eyes Neck full ROM Chest Wall Chest: Negative for tenderness Resp normal respiratory effort and normal air movement Effort and Inspection: symmetric chest movement; Negative for respiratory distress Cardio regular rate, regular rhythm and no murmurs Peripheral Pulses: pulses 2+ throughout GI normal to inspection, nondistended, normoactive bowel sounds and non-tender Palpation: Negative for guarding or rebound tenderness present Extremity normal to inspection Extremity Narrative: Minimal edema lower extremities. General Extremety ED: Yes edema; Negative for tenderness General Extremity: edema Neuro oriented x3 and no sensory deficits noted Sensorium / Orientation: awake and alert Skin no rashes or lesions noted and no wounds MDM MDM MDM Narrative Medical decision making narrative: Interventions / MDM: Differential diagnosis: Pneumonia, cough Diagnosis considered but do not suspect: N/A My EKG interpretation: N/A Imaging independently reviewed and interpreted by myself: 1 view chest x-ray: Bibasilar infiltrates also read by radiology. External documents reviewed: N/A Test considered but not ordered:N/A ED course: Patient 2 L of oxygenation no distress feeling better. Nursing protocol obtain chest x-ray treatment myself and read by radiology bibasilar infiltrates. She is a hospice patient. She is afebrile she is currently no respiratory distress. I discussed with family can further workup with their concerns with lab work however they are establish hospice they may be removed from hospice temporarily. Per grandson we have a diagnosis with a pneumonia he is okay with treating the pneumonia at this time and sending her back. Doxycycline started. Nursing will discuss with hospice continued care with antibiotics and oxygenation back at facility. 2345: Nursing got a hold of hospice. They will meet the patient at the facility to continue oxygenation. Prescription printed for antibiotics to take and finish. Re-evaluation: stable Disposition discussed with patient/family/significant other: Family and patient Case discussed with consulting clinician: N/A This note was generated with [employer] dictation software. It may contain incorrect words, spelling, and punctuation that were not noted in checking the note before signing. Radiography Diagnostic Testing: Clinical Impression(s) from Imaging Studies Chest X-Ray 07/17/24 21:27 IMPRESSION: Bibasilar opacities suspicious for aspiration/pneumonia. Small left pleural effusion. Reading Location: [place] [id number] Discharge Plan Triage Chief Complaint: Shortness of Breath ED Provider: Jung Lemon Dx/Rx/DC Orders Clinical Impression: Pneumonia, Cough Instructions: Treating Pneumonia Prescriptions: New doxycycline monohydrate 100 mg capsule 100 mg PO BID Qty: 20 0RF No Action gabapentin 100 mg capsule 100 mg PO BID metoprolol tartrate 50 MG tablet 12.5 mg PO BID Patient Comments: Blood Pressure and Heart Rate omeprazole magnesium 20 MG tablet,delayed release (DR/EC) 40 mg PO DAILY triamcinolone acetonide 1 APPLIC cream 1 applic TOPICAL BID PRN (Reason: Itching) albuterol sulfate 2.5 MG/3 ML solution for nebulization 2.5 mg INHALATION Q2H PRN PRN (Reason: SOB/Wheezing) 0RF furosemide 40 MG tablet 40 mg PO DAILY levothyroxine 50 MCG tablet 50 mcg PO DAILY potassium chloride 20 mEq tablet extended release 20 meq PO BID sertraline 100 mg Tablet 100 mg PO QHS meclizine 12.5 mg tablet 12.5 mg PO BID PRN (Reason: dizziness and giddiness) bisacodyl 5 mg Tablet,Delayed Release (Dr/Ec) 10 mg PO DAILY PRN (Reason: Constipation) acetaminophen 500 mg Tablet 1,000 mg PO Q6H PRN (Reason: Pain) olanzapine 2.5 mg tablet 2.5 mg PO TID oxybutynin chloride 15 mg tablet extended release 24hr 15 mg PO DAILY oxycodone 5 mg tablet 5 mg PO Q6H pravastatin 40 mg tablet 40 mg PO DAILY cephalexin [cephalexin] 500 mg capsule 500 mg PO Q6 Qty: 28 0RF Primary Care Provider: Candis Hui Referrals: Candis Hui MD [Primary Care Provider] - Activity Restrictions/Additional Instructions: Chest x-ray with lower lobe pneumonia. Take and finish antibiotics. Hospice can continue oxygen as needed and breathing treatments. Print Language: Sinhala Disposition Disposition: Home, Self Care Discharge Date/Time: 07/18/24 03:01
--- NOTE | 2024-07-17 23:16 | ED.RN ---
This RN called report back and to see where to send her script and per the nurse there [facility] does not have oxygen there. This RN will inform the MD.
--- NOTE | 2024-07-17 23:25 | ED.RN ---
This RN spoke with the triage nurse at [facility], they are going to try to set up oxygen tonight but will call back to see how soon they can get it set up.
[2024-07-17 23:36] VITALS: RESP 20; O2SAT 99
[2024-07-17] MEDS: Doxycycline 100 MG CAPSULE PO (23:37)
--- NOTE | 2024-07-17 23:48 | ED.RN ---
[facility] transport for pt back to [facility], spoke with Colton. eta is 3-4 hrs ([phone]).
--- NOTE | 2024-07-18 00:06 | ED.RN ---
This RN called report to [facility]. Hospice will be bringing oxygen within the hour. snf aware.
[2024-07-18 00:09] VITALS: O2SAT 99
[2024-07-18 00:10] VITALS: BP 145/110; PULSE 74; RESP 20; TEMP 37.1; O2SAT 99
[2024-07-18 02:00] VITALS: RESP 20; O2SAT 98
[2024-07-18] MEDS: Ondansetron ODT 4 MG Tablet PO (03:19)
--- NOTE | 2024-07-18 03:20 | ED.RN ---
The squad reported pt VS as 178/[address] LEMON at bedside, ordered zofran for pt nausea. Dr Lemon aware of VS. Ok to send back to [facility].
== END 2024-07-18 03:01 | disposition home or self-care (01) ==
PROVIDERS: Emergency Provider Emergency Medicine; PCP Family Medicine; Visit Provider Emergency Medicine
DX: R06.02 Shortness of breath (principal); I48.0 Paroxysmal atrial fibrillation; J18.9 Pneumonia, unspecified organism; Z77.22 Contact with and (suspected) exposure to environmental tobacco smoke (acute) (chronic); R05.9 Cough, unspecified; I10 Essential (primary) hypertension; Z86.73 Personal history of transient ischemic attack (TIA), and cerebral infarction without residual deficits; E78.5 Hyperlipidemia, unspecified; Z79.899 Other long term (current) drug therapy; E03.9 Hypothyroidism, unspecified; Z79.890 Hormone replacement therapy; F41.8 Other specified anxiety disorders; Z90.49 Acquired absence of other specified parts of digestive tract
CPT/HCPCS: 71045; 94760; 99284